=== PATIENT | female | born 1950 | race Caucasian/White ===

== ENCOUNTER 2018-01-26 21:58 | Outpatient (REF) | payer MEDICARE, SELFPAY ==
[2018-01-28 19:11] LABS: Oxalate Conc (mmol/L) 0.16 mmol/L; Oxalate Concentration 14.1 mg/L; Oxalate, U 0.13 mmol/24 h; Oxalate, U 11.4 mg/24 h (9.7 - 40.5); Urine Volume 800 mL
== END 2018-01-26 22:18 ==
LOC: NCHCN 21:58
PROVIDERS: PCP Internal Medicine; Visit Provider Internal Medicine
DX: N20.0 Calculus of kidney (principal)
CPT/HCPCS: 81050; 82340; 82570; 83945; 84560

== ENCOUNTER 2018-09-21 15:49 | Outpatient (REF) | payer MEDICARE, SELFPAY ==
[2018-09-21 19:04] LABS: ALT 34 U/L (12-78); Anion Gap 9.4 mmol/L (3-11); BUN 17 mg/dL (7-18); CO2 28.6 mmol/L (21.0-32.0); CREATININE 0.83 mg/dL (0.55-1.02); Calcium 8.9 mg/dL (8.5-10.1); Chloride 104 mmol/L (98-107); Glucose 138 mg/dL (70-100); LDL CHOLESTEROL 156 mg/dL (<100); Potassium 3.9 mmol/L (3.5-5.1); Sodium 142 mmol/L (136-145)
== END 2018-09-21 16:09 ==
LOC: NCHCN 15:49
PROVIDERS: PCP Internal Medicine; Visit Provider Internal Medicine
DX: I10 Essential (primary) hypertension (principal)
CPT/HCPCS: 80048; 83721; 84460

== ENCOUNTER 2018-10-28 08:38 | Outpatient (REF) | payer MEDICARE, SELFPAY ==
[2018-10-28 20:43] LABS: Calculated LDL 119 mg/dL; Cholesterol 208 mg/dL (50-200); HDL Cholesterol 43 mg/dL (40-60); Triglyceride 230 mg/dL (30-150)
[2018-10-28 20:51] LABS: Hemoglobin A1C 7.8 % (4.5-6.2)
== END 2018-10-28 08:58 ==
LOC: NCHCN 08:38
PROVIDERS: PCP Internal Medicine; Visit Provider Nurse Practitioner Family
DX: E78.5 Hyperlipidemia, unspecified (principal); R73.9 Hyperglycemia, unspecified; R55 Syncope and collapse
CPT/HCPCS: 80061; 83721; 83036; 84443

== ENCOUNTER 2020-03-14 03:43 | Outpatient (CLI) | payer MEDICARE, SELFPAY ==
--- NOTE | 2020-03-28 15:28 | ZIOP_ITS ---
Date of service: 03/28/20 Time of Service: 15:28 14 Day Java Core Developer Referring Provider:: Harvey Indications:: Paroxysmal atrial fibrillation Note: This was a 14-day Holter monitor. Predominant rhythm was sinus with an average heart rate of 64. Minimum was 46, maximum 105 There were rare ventricular ectopic beats There were occasional atrial premature beats. There were a total of 9 atrial runs, the longest of which was 9 beats in length. These were not symptomatic., There was no atrial fibrillation. There was no high-grade AV block. There were no pauses greater than 3 seconds Multiple patient symptoms were reported, generally flutter or skipped beats. No dysrhythmias were recorded during the patient events. They corresponded to sinus rhythm rate generally 65-70
== END 2020-03-14 04:03 ==
PROVIDERS: PCP Internal Medicine; Visit Provider Internal Medicine
DX: I48.0 Paroxysmal atrial fibrillation (principal)
CPT/HCPCS: 0296T

== ENCOUNTER 2020-03-28 15:28 | Outpatient (CLI) | payer MEDICARE, SELFPAY | END 2020-03-28 15:48 | PROVIDERS: PCP Internal Medicine; Referring Provider Internal Medicine; Visit Provider Internal Medicine Cardiovascular Disease | DX: I48.0 Paroxysmal atrial fibrillation (principal); I49.1 Atrial premature depolarization | CPT/HCPCS: 0298T ==

== ENCOUNTER 2020-09-27 19:20 | Outpatient (REF) | payer MEDICARE, SELFPAY ==
[2020-09-27 21:11] LABS: ALT 53 U/L (14-59); Anion Gap 7.1 mmol/L (3-11); BUN 17 mg/dL (7-18); CO2 31.9 mmol/L (21.0-32.0); CREATININE 1.2 mg/dL (0.55-1.02); Calcium 9.2 mg/dL (8.5-10.1); Chloride 103 mmol/L (98-107); Estimated GFR 44.41 (mL/min/1.73m2); Glucose 196 mg/dL (74-106); LDL CHOLESTEROL 66 mg/dL (<100); Potassium 3.7 mmol/L (3.5-5.1); Sodium 142 mmol/L (136-145)
== END 2020-09-27 19:21 | disposition home or self-care (01) ==
LOC: NCHCN 19:20
PROVIDERS: PCP Internal Medicine; Visit Provider Internal Medicine
DX: E11.9 Type 2 diabetes mellitus without complications (principal); M70.41 Prepatellar bursitis, right knee; K21.9 Gastro-esophageal reflux disease without esophagitis; G20 Parkinson's disease
CPT/HCPCS: 80048; 83721; 84460

== ENCOUNTER 2021-10-15 18:37 | Outpatient (REF) | payer MEDICARE, SELFPAY ==
--- OUTSIDE RECORDS SUMMARY | 2021-10-15 18:56 | XMS_ITS | Encounter Summary ---
:[address] [facility] Address [address] [place] [address] Care Team Providers Name Role Phone Patricio Gabriel MD Primary Care Provider Encounter Details Date Type Department Care Team Description 09/04/2020 Lab Requisition [facility] Dwayne Acosta MD Encounter for other Pathology & 81 MEDICAL general examina tion Laboratory Medicine [facility] [address] Blevins [address] [address] 111 [facility] [phone] [place] [address] (Work) [phone] Social History Tobacco Use Types Packs/Day Years Used Date Never Assessed Sex Assigned at Date Recorded Not on file documented as of this encounter Plan of Treatment Not on filedocumented as of this encounter Procedures Procedure Name Priority Date/Time Associated Diagnosis Comme nts SURGICAL PATHOLOGY Today 08/31/2020 16:00 Resul ts for this EDT procedure are i n the results section. documented in this encounter Results SURGICAL PATHOLOGY (08/31/2020 16:00 EDT) Final Diagnosis A. SKIN OF BREAST, LEFT, EXCISION: [facility] - Seborrheic keratosis. CENTER - Seborrheic keratosis present at peripheral margin. LABORATORY SERVICES Attestation By the signature [facility] Electronica lly below, the attending CENTER signed by [place] physician certifies LABORATORY Samantha Spencer MD on that they have 1) SERVICES 09/06/2020 a t 1044 personally conducted a gross and/or microscopic examination of the described specimen(s), and/or personally interpreted the results of laboratory testing of the described specimen(s), and 2) personally rendered or confirmed the above diagnosis. Microscopic The stratum corneum [facility] Description is thickened by CENTER compact and LABORATORY basketweave SERVICES orthokeratosis with formation of horn pseudocysts. The epidermis is acanthotic with formation of broad and anastomosing trabeculae. The trabeculae are composed of basaloid keratinocytes with round uniform nuclei. The keratinocytes have a variable amount of melanin pigment. Clinical History Nevus of L breast [facility] LABORATORY SERVICES Gross Description A. [facility] Received in formalin ethel d with proper patient identification (initials V, H) and L breast skin is an unoriented ellipse excision of pale dial wrinkled skin (2.0 x 0.9 cm and is excised to a depth o CENTER f 0.1 cm). There is an off c enter dial-north to brown finely papillomatous papule (1.3 x 0.8 x 0.3 cm). The margins are inked blue. The specimen is serially sectioned and entirely submitted as two tips, r LABORATORY everse en face A1, and central sections in A2-A3. SERVICES Zack Curry 09/05/2020 10:17 Performing Lab [facility] LAB [facility] LABORATORY SERVICES Scanned Images [facility] LABORATORY SERVICES Specimen Tissue - Skin (tissue) specimen (specime n) Performing Organization Address City/State/ZIP Code Phon e Number [facility] [address] [place] [address] SERVICES documented in this encounter Visit Diagnoses Diagnosis Encounter for other general examination documented in this encounter Care Teams Special Warfare Boat Operator Relationship Specialty Start Date End Date Patricio Gabriel MD PCP - General 02/01/09 [address] [place] [address] documented as of this encounter
--- OUTSIDE RECORDS SUMMARY | 2021-10-15 18:56 | XMS_ITS | Encounter Summary ---
:1950 Author Organization [facility] Address [address] [place] [address] Care Team Providers Name Role Phone Patricio Gabriel MD Primary Care Provider Encounter Details Date Type Department Care Team Description 06/03/2002 Results Only [facility] - John Barksdale MD conversion [address] [place] [address] Social History Tobacco Use Types Packs/Day Years Used Date Never Assessed Sex Assigned at Date Recorded Not on file documented as of this encounter Plan of Treatment Not on filedocumented as of this encounter Procedures Procedure Name Priority Date/Time Associated Diagnosis Comme nts CYTOPATHOLOGY Routine 06/03/2002 0:00 EST Results for this procedure are i n the results section . documented in this encounter Results CYTOPATHOLOGY (06/03/2002 0:00 EST) Pathology Report: CYTOPATHOLOGY REPORT [facility] Reports generated via electronic interface contain soraya ginal data; however they are lacking the format of the original re port. Caution should be taken when reading/interpreting unfo rmatted reports. Name: ? ERICK STOKES ? Accession #: ? [id number] : ? 1950 (Age: 52) ??F ?Collect Date: ? 03/0 08/2002 Location: ? [facility] ? Receive Date : ? 06/07/2002 Provider: ?JOHN BIRD MD Copy to: ? Specimen/Source: ?ThinPrep Pap Test, Cervix/ Endocervix Last Menstrual Period: ? Hormonal/Contraceptive Status: ? Premarin ? SPECIMEN ADEQUACY ? Satisfactory for Evaluation - transformation zone component present GENERAL CATEGORIZATION ? Negative for Intraepithelial Lesion or Malignan cy ? Document reviewed and electronically signed by: ? GENESIS Gann(ASCP) ? Report Date: ??06/08/2002 10:36 End of Report Specimen Performing Organization Address City/State/ZIP Code Phon e Number [facility] [address] [place] [address] SERVICES [facility] [address] [place] [address] documented in this encounter Visit Diagnoses Not on filedocumented in this encounter Care Teams Animal Control Specialist Relationship Specialty Start Date End Date Patricio Gabriel MD PCP - General 02/01/09 [address] [place] [address] documented as of this encounter
--- OUTSIDE RECORDS SUMMARY | 2021-10-15 18:56 | XMS_ITS | Encounter Summary ---
:1950 Author Organization [facility] Address [address] [place] [address] Care Team Providers Name Role Phone Unavailable Primary Care Provider Unavailable Encounter Details Date Type Department Care Team Description 04/26/[address] [facility] - Brianna [address], [facility] 111 [facility] [address] [place], [place] [address] [place] [address] [place], [address] [place] [address] (Wo rk) Social History Tobacco Use Types Packs/Day Years Used Date Never Assessed Sex Assigned at Date Recorded Not on file documented as of this encounter Discharge Disposition Disposition Code Departure Means Destination Auto Discharge documented in this encounter Plan of Treatment Not on filedocumented as of this encounter Procedures Procedure Name Priority Date/Time Associated Diagnosis Comme nts CYTOPATHOLOGY Routine 02/10/2009 0:00 EST Results for this procedure are i n the results section . documented in this encounter Results CYTOPATHOLOGY (02/10/2009 0:00 EST) Pathology Report: CYTOPATHOLOGY REPORT ? [facility] ? [facility] Reports generated via electr onic interface contain original data; ? however they are lacking the format of the original report. ? Caution should be taken when reading/interpreting unformatted reports. ? Name: ? KIKE, ERICK D ? Accession #: ? [id number] ? : ? 1950 (Age: 58) ??F ?Collect Date: ? 02/10/2009 ? Location: ? [facility] ? Receive Date: ? 02/14/2009 ? Provider: ? MALINDA E GABRIELA MEAU MD ? Copy to: ? CYTOLOGIC DIAGNOSIS: ? Urine, voided, cytolo gic evaluation: ? - No malignant cells identif ied. ? Document reviewed and electr onically signed by: ? Leda Ferris MD ? Report Date: ??02/14/2009 16 :01 ? By the signature above, the attending physician certifies that he/she has ? personally conducted a gross and/or microscopic examination of the described ? specimens and rendered or co nfirmed the above diagnosis. ? Specimen Type: ? Urine, Voided ? Clinical History: ? Clinical diagnosis co de: 599.72. ? Gross Description: ? One vial of Cytolyt w as received and processed by selective cellular ? enhancement technique. ? End of Report ? Specimen Performing Organization Address City/State/ZIP Code Phon e Number [facility] [address] [place] [address] SERVICES [facility] [address] [place] [address] documented in this encounter Visit Diagnoses Not on filedocumented in this encounter
--- OUTSIDE RECORDS SUMMARY | 2021-10-15 18:56 | XMS_ITS | Encounter Summary ---
:1950 Author Organization [facility] Address [address] [place] [address] Care Team Providers Name Role Phone Patricio Gabriel MD Primary Care Provider Encounter Details Date Type Department Care Team Description 07/31/2006 Results Only [facility] - Elyssa Villasenor MD conversion [facility] [address] 111 [facility] [address] [place], [place] [id number] [place] [address] (Wo rk) Social History Tobacco Use Types Packs/Day Years Used Date Never Assessed Sex Assigned at Date Recorded Not on file documented as of this encounter Plan of Treatment Not on filedocumented as of this encounter Procedures Procedure Name Priority Date/Time Associated Comments Diagnosis HPV DETECTION, HIGH Routine 07/31/2006 22:51 Resu lts for this RISK TYPES EDT procedure are i n the results section. CYTOPATHOLOGY Routine 07/31/2006 0:00 Results for this EDT procedure are i n the results section. documented in this encounter Results HUMAN PAPILLOMA VIRUS DNA TEST (07/31/2006 22:51 EDT) Specimen Description Cervix, ThinPrep [facility] vial Result Negative for HPV [facility] types 16, 18, 31, 33, 35, 39, 45, 51, 52, 56, 58, 59, and 68. Report Status Final [facility] [id number] Specimen Performing Organization Address City/State/ZIP Code Phon e Number [facility] [address] [place] [address] SERVICES [facility] [address] [place] [address] CYTOPATHOLOGY (07/31/2006 0:00 EDT) Pathology Report: CYTOPATHOLOGY REPORT [facility] Reports generated via electronic interface contain soraya ginal data; however they are lacking the format of the original re port. Caution should be taken when reading/interpreting unfo rmatted reports. Name: ? ERICK STOKES ? Accession #: ? [id number] : ? 1950 (Age: 56) ??F ?Collect Date: ? 05/2006 Location: ? [facility] ? Receive Date : ? 08/01/2006 Provider: ?ELYSSA RAIN MD Copy to: ? Specimen/Source: ? ThinPrep Pap Test, Vagina, processed on [employer] ThinPrep Imaging System, with manual evaluation Last Menstrual Period: ? Age 45 Treatment History: ? Hysterectomy: Vag 11/03 Other: ? Additional clinical information: Previous paps WNL HPVDX - HPV testing requested regardless of diag nosis on current ThinPrep Pap test. ? SPECIMEN ADEQUACY ? Satisfactory for Evaluation - assessment of transformation zone component not appl icable ( e.g. atrophy, vaginal sample, hysterectomy) GENERAL CATEGORIZATION ? Negative for Intraepithelial Lesion or Malignan cy ? Document reviewed and electronically signed by: ? GENESIS Steen(ASCP) ? Report Date: ??08/05/2006 10:18 End of Report Specimen Performing Organization Address City/State/ZIP Code Phon e Number [facility] [address] [place] [address] SERVICES [facility] [address] [place] [address] documented in this encounter Visit Diagnoses Not on filedocumented in this encounter Care Teams Manufacturing Operator Relationship Specialty Start Date End Date Patricio Gabriel MD PCP - General 02/01/09 [address] [place] [address] documented as of this encounter
--- OUTSIDE RECORDS SUMMARY | 2021-10-15 18:56 | XMS_ITS | Encounter Summary ---
:1950 Author Organization [facility] Address [address] [place] [address] Care Team Providers Name Role Phone Patricio Gabriel MD Primary Care Provider Encounter Details Date Type Department Care Team Description 01/07/2018 Results Only [facility]- PRISM Lizz Puri MD [phone] [place], [place] [address] (Wo rk) Social History Tobacco Use Types Packs/Day Years Used Date Never Assessed Sex Assigned at Date Recorded Not on file documented as of this encounter Plan of Treatment Not on filedocumented as of this encounter Procedures Procedure Name Priority Date/Time Associated Diagnosis Comme [facility] SURGICAL PATHOLOGY Routine 01/07/2018 9:03 EDT Re sults for this procedure are i n the results section. documented in this encounter Results SURGICAL PATHOLOGY (01/07/2018 9:03 EDT) Pathology SURGICAL PATHOLOGY REPORT [facility] Report: Reports generated via electronic interface conta in original data; CENTER LABORATORY however they are lacking the format of the original re port. SERVICES Caution should be taken when reading/interpreting unfo rmatted reports. Name: ? ERICK STOKES ? Accession #: ? [id number] ? : ? 1950 (Age: 67) ??F ? Collect Date: ? 01/07/2018 ? Location: ? [facility] ? Receive Date: ? 01/08/20 18 ? Provider: LIZZ PURI MD Copy to: ? 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 Comment: Sections show mature adipose tissue with bands of ropey collagen and scattered mast cells. Scattered edema/ myxomatous stroma are present. ??Rare enlarged cells are noted, but significant cytologic atypia is a bsent. Per report from an MRI study, the patient is noted to have a prepatella r soft tissue mass having the appearance of fat with some edema. 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 Screen Printing Stencil Preparer slides of this case were reviewed at the intradepartmental consultati on conference. Immunoperoxidase stains were performed on this case to further characterize the lesion. ANTIBODY(CLONE)(BLOCK):RESULT CD34 (QBEnd/10, [employer]ica) (2): Positive MDM2 (IF2, Calbiochem) (2): Negative CDK4 (DCS-31, Invitrogen) (2): Negative NOTE: ??One or more of the reagents used in imm unoperoxidase testing in this case may not have been cleared or approved by the U.S. Food and Drug Administration (FDA). ??The FDA has determined that such clearance or approval is not necessary. ??These tests are used for clinical purposes. ??They should not be regarded as investigational or for research. ??These r eagents' performance characteristics have been de termined by [facility] and/or by the referring andreia ramos. ??The positive and negative controls worked appropriately. If immunopero xidase staining has been performed on alcohol fixed cytology specimens, which has not been fully validated , the assays should be interpreted with caution and correlated with clinical data. ??This laboratory is certified under the Clinical Laboratory Improvement Amendments of 1988 (CLIA-88) as qualified to perform high complexity clinical labor atory testing. Dr. Frederick Vargas 01/12/2018 1:00 PM Document reviewed and electronically signed by: FREDERICK VARGAS MD Report ??Date: 01/12/2018 13:02 By the signature above, the attending physician certif ies that he/she has personally conducted a gross and/or microscopic examin ation of the described specimens and rendered or confirmed the above diagnosi s. Specimen(s) Received: Anterior right knee specimen Clinical History: Mass right anterior knee, rapid growth over last month Gross Description: ? Received in formalin labelled with proper patient identification (initials V, H) and anterior right kn ee specimen is an ovoid portion of yellow lobulated adipose tissue (3.6 x 2.8 x 1.3 cm) with an overlying membranous layer of tissue at one aspect. The cut surfaces are pale yellow and homogenous. Screen Printing Stencil Preparer sections are submitted in 1 and 2. RENAE Cline (ASCP) 01/08/2018 9:52 AM End of Report Specimen Performing Organization Address City/State/ZIP Code Phon e Number [facility] [address] [place] [address] SERVICES documented in this encounter Visit Diagnoses Not on filedocumented in this encounter Care Teams Fast Food Shift Supervisor Relationship Specialty Start Date End Date Patricio Gabriel MD PCP - General 02/01/09 [address] [place] [address] documented as of this encounter
--- OUTSIDE RECORDS SUMMARY | 2021-10-15 18:56 | XMS_ITS | Clinical Summary ---
:1950 Author Organization [facility] Address [address] [place] [address] Care Team Providers Name Role Phone Patricio Gabriel MD Primary Care Provider Social History Tobacco Use Types Packs/Day Years Used Date Never Assessed Sex Assigned at Date Recorded Not on file Plan of Treatment Health Maintenance Due Date Last Done Comments Fall Risk Screening 2015 Insurance Payer Benefit Plan Subscriber ID Effective Phone Address Typ e / Group Dates RAILROAD MEDICARE [id number] 2006-Pres [phone] Medi care MEDICARE RAILROAD A/B ent [id number] [place] [address] [facility] [id number] 2020-Pres [phone] [address] Comm ercial HEALTHCARE ent [phone] [place] [address] (Work) [phone] Yesi Estrella Personal/Famil Self 1950 [address] [phone] [place], [place] (Work) [phone] Yesi Estrella Personal/Famil Self 1950 [address] [phone] [place] (Work) [phone] Yesi Estrella Personal/Famil Self 1950 [address]) [facility] [phone] [place] (Work) [phone] Yesi Estrella Personal/Famil Self 1950 [address] (Home) [phone] [place] (Work) [phone] Care Teams Timber Inspector Relationship Specialty Start Date End Date Patricio Gabriel MD PCP - General 02/01/09 [address] [place], [place] [address]
--- OUTSIDE RECORDS SUMMARY | 2021-10-15 18:56 | XMS_ITS | Encounter Summary ---
:[address] [facility] Address [address] [place] [address] Care Team Providers Name Role Phone Patricio Gabriel MD Primary Care Provider Encounter Details Date Type Department Care Team Description 06/06/2005 Results Only [facility] - Elyssa Villasenor MD conversion [address] [place] [address] [address] [facility] [address] [place], [place] [address] [place] [address] (Wo rk) Social History Tobacco Use Types Packs/Day Years Used Date Never Assessed Sex Assigned at Date Recorded Not on file documented as of this encounter Plan of Treatment Not on filedocumented as of this encounter Procedures Procedure Name Priority Date/Time Associated Diagnosis Comme nts CYTOPATHOLOGY Routine 06/06/2005 0:00 EST Results for this procedure are i n the results section . documented in this encounter Results CYTOPATHOLOGY (06/06/2005 0:00 EST) Pathology Report: CYTOPATHOLOGY REPORT [facility] Reports generated via electronic interface contain soraya ginal data; however they are lacking the format of the original re port. Caution should be taken when reading/interpreting unfo rmatted reports. Name: ? ERICK STOKES ? Accession #: ? [id number] : ? 1950 (Age: 55) ??F ?Collect Date: ? 03/11/2005 Location: ? [facility] ? Receive Date : ? 06/10/2005 Provider: ?ELYSSA RAIN MD Copy to: ? Specimen/Source: ? ThinPrep Pap Test, Cervix/Endocervix, processed on [employer] ThinPrep Imaging System, with manual evaluation Last Menstrual Period: ? Age 45 Hormonal/Contraceptive Status: ? Yes Other: ? HPVA - HPV testing requested if ASC-US on the current ThinPrep Pap test. ? SPECIMEN ADEQUACY ? Satisfactory for Evaluation - transformation zone component present GENERAL CATEGORIZATION ? Negative for Intraepithelial Lesion or Malignan cy INTERPRETATION ? Fungal organisms pres ent morphologically consistent with Christi species. ? Document reviewed and electronically signed by: ? GENESIS Davis(ASCP) ? Report Date: ??06/12/2005 10:22 End of Report Specimen Performing Organization Address City/State/ZIP Code Phon e Number [facility] [address] [place] [address] SERVICES [facility] [address] [place] [address] documented in this encounter Visit Diagnoses Not on filedocumented in this encounter Care Teams Media Librarian Relationship Specialty Start Date End Date Patricio Gabriel MD PCP - General 02/01/09 [address] [place] [address] documented as of this encounter
--- OUTSIDE RECORDS SUMMARY | 2021-10-15 18:56 | XMS_ITS | Encounter Summary ---
:1950 Author Organization [facility] Address [address] [place] [address] Care Team Providers Name Role Phone Patricio Gabriel MD Primary Care Provider Encounter Details Date Type Department Care Team Description 05/15/2001 Results Only [facility] - Fausto Seth, conversion DDS [address] [place], [place] [address] [place] [address] (Wo rk) Social History Tobacco Use Types Packs/Day Years Used Date Never Assessed Sex Assigned at Date Recorded Not on file documented as of this encounter Plan of Treatment Not on filedocumented as of this encounter Procedures Procedure Name Priority Date/Time Associated Diagnosis Comme [facility] SURGICAL PATHOLOGY Routine 05/15/2001 0:00 EST Re sults for this procedure are i n the results section. documented in this encounter Results SURGICAL PATHOLOGY (05/15/2001 0:00 EST) Pathology Report: SURGICAL PATHOLOGY REPORT [facility] Reports generated via electronic interface contain soraya ginal data; LAB however they are lacking the format of the original re port. Caution should be taken when reading/interpreting unfo rmatted reports. Name: ? ERICK STOKES ? Accession #: ? [id number] ? : ? 1950 (Age: 51) ??F ? Collect Date: ? 05/15/2001 ? Location: ? [facility] ? Receive Date: ? 002 ? Provider: Fausto MCALLISTER DDS Copy to: MALLORIE GOETZ MD ? Final Pathologic Diagnosis: ? Buccal mucosa, left, lesion, excisional biopsy: - Submucosal fibrosis (irritation fibroma). Document reviewed and electronically signed by: Kandace Arriola MD Report ??Date: 05/18/2001 14:25 By the signature above, the attending physician certif ies that he/she has personally conducted a gross and/or microscopic examin ation of the described specimens and rendered or confirmed the above diagnosi s. Specimen(s) Received: ? 7 mm pedunculated pink non-indurated, soft tiss ue lesion Clinical History: ? L buccal mucosal lesion x 1-several yrs, bites easily, clinical dx irritation fibroma Gross Description: ? Received in formalin labelled [place] is an ovoid excision of mucosal tissue that measures 1.1 x 0.6 cm and is excised to a depth of 0.5 cm. ??The mucosal surface is smooth, p ink-dial, and consists of a nodule that is raised 0.6 cm above the mucosal resecti on margin. ??The specimen is longitudinally trisected and is entirely submitted in one cassette. ??(Viridiana Black) /[facility] End of Report Specimen Performing Organization Address City/State/ZIP Code Phon e Number [facility] [address] [place] [address] SERVICES [facility] [address] [place] [address] documented in this encounter Visit Diagnoses Not on filedocumented in this encounter Care Teams Lan Engineer Relationship Specialty Start Date End Date Patricio Gabriel MD PCP - General 02/01/09 [address] [place] [id number] documented as of this encounter
--- OUTSIDE RECORDS SUMMARY | 2021-10-15 18:56 | XMS_ITS | Encounter Summary ---
:1950 Author Organization [facility] Address [address] [place] [address] Care Team Providers Name Role Phone Patricio Gabriel MD Primary Care Provider Encounter Details Date Type Department Care Team Description 01/19/2001 Results Only [facility] - Comfort Lozano ARCHITECTURE PROFESSOR conversion [address] [place] [address] Social History Tobacco Use Types Packs/Day Years Used Date Never Assessed Sex Assigned at Date Recorded Not on file documented as of this encounter Plan of Treatment Not on filedocumented as of this encounter Procedures Procedure Name Priority Date/Time Associated Diagnosis Comme nts CYTOPATHOLOGY Routine 01/19/2001 0:00 EDT Results for this procedure are i n the results section . documented in this encounter Results CYTOPATHOLOGY (01/19/2001 0:00 EDT) Pathology Report: CYTOPATHOLOGY REPORT [facility] Reports generated via electronic interface contain soraya ginal data; however they are lacking the format of the original re port. Caution should be taken when reading/interpreting unfo rmatted reports. Name: ? ERICK STOKES ? Accession #: ? [id number] : ? 1950 (Age: 50) ??F ?Collect Date: ? 12/30 Location: ? [facility] ? Receive Date : ? 01/21/2001 Provider: ?COMFORT NDIAYE ARCHITECTURE PROFESSOR Copy to: ? Specimen/Source: ?ThinPrep Pap Test, Cervix/ Endocervix Last Menstrual Period: ? 10/29 Hormonal/Contraceptive Status: ? Hormone Replacement Therapy ? SPECIMEN ADEQUACY ? Satisfactory for evaluation. GENERAL CATEGORIZATION ? Within Normal Limits ? Document reviewed and electronically signed by: ? Alisha Ladd, SCT(ASCP) ? Report Date: ??01/23/2001 10:31 End of Report Specimen Performing Organization Address City/State/ZIP Code Phon e Number [facility] [address] [place] [address] SERVICES [facility] [address] [place] [address] documented in this encounter Visit Diagnoses Not on filedocumented in this encounter Care Teams Box Blank Machine Operator Relationship Specialty Start Date End Date Patricio Gabriel MD PCP - General 02/01/09 [address] [place] [address] documented as of this encounter
--- OUTSIDE RECORDS SUMMARY | 2021-10-15 18:56 | XMS_ITS | Encounter Summary ---
:1950 Author Organization [facility] Address [address] [place] [address] Care Team Providers Name Role Phone Unavailable Primary Care Provider Unavailable Encounter Details Date Type Department Care Team Description 12/01/2007 Before [facility] Leanne Acosta MD Converted Visit Maple conversion 81 [facility] [address] [facility] [address] [place], [place] [id number] [place] [phone] (Wo rk) Social History Tobacco Use Types Packs/Day Years Used Date Never Assessed Sex Assigned at Date Recorded Not on file documented as of this encounter Plan of Treatment Not on filedocumented as of this encounter Procedures Procedure Name Priority Date/Time Associated Diagnosis Comme [facility] CYTOPATHOLOGY Routine 12/01/2007 0:00 EDT Results for this procedure are i n the results section . documented in this encounter Results CYTOPATHOLOGY (12/01/2007 0:00 EDT) Pathology Report: CYTOPATHOLOGY REPORT ? [facility] Reports generated via electr onic interface contain original data; ? however they are lacking the format of the original report. ? Caution should be taken when reading/interpreting unformatted reports. ? Name: ? ERICK STOKES ? Accession #: ? [id number] ? : ? 1950 (Age: 57) ??F ?Collect Date: ? 12/01/2007 ? Location: ? [facility] ? Receive Date: ? 12/02/2007 ? Provider: ? ELYSSA ACOSTA MD ? Copy to: ? Specimen Type: ? Urine, Voided ? Clinical History: ? Microscopic hematuria . ??Clinical diagnosis code: 599.7 ? Gross Description: ? 40cc' s of clear yell ow fluid were received and processed by selective ? cellular enhancement techniq ue. ? CYTOLOGIC DIAGNOSIS: ? Urine, voided, cytolo gic evaluation: ? 1. ?No malignan t cells identified. ? 2. ? Numerous squamous c ells, rare urothelial cells present. ? 3. ? Few red blood cells noted. ? Document reviewed and electr onically signed by: ? Hugo Eastman, MBBCh ? Report Date: ??12/03/2007 13 :03 ? By the signature above, the attending physician certifies that he/she has ? personally conducted a gross and/or microscopic examination of the described ? specimens and rendered or co nfirmed the above diagnosis. ? End of Report ? Specimen Performing Organization Address City/State/ZIP Code Phon e Number [facility] [address] [place] [address] SERVICES [facility] [address] [place] [address] documented in this encounter Visit Diagnoses Not on filedocumented in this encounter
--- OUTSIDE RECORDS SUMMARY | 2021-10-15 18:57 | XMS_ITS | Encounter Summary ---
:1950 [place] [address] Care Team Providers Name Role Phone Patricio Gabriel MD Primary Care Provider Encounter Details Date Type Department Care Team Description 01/20/2018 Hospital Encounter Radiology Library at Patience Vazquez, [facility] [place] [address] GASTROENTEROLOGY [phone] [place] [address] (Wo rk) Social History Tobacco Use Types Packs/Day Years Used Date Former Smoker 0.25 Quit: 05/30/19 14 Smokeless Tobacco: Never Used Sex Assigned at Date Recorded Not on file documented as of this encounter Medications at Time of Discharge Medication Sig Dispensed Refills Start Date End Date pantoprazole (PROTONIX) 0 10/31/2015 40 mg Tablet, Delayed Release (E.C.) atenolol (TENORMIN) 50 mg 0 10/31/2015 Tablet lisinopril TAKE ONE TABLET BY 4 12/01/2015 (PRINIVIL;ZESTRIL) 20 mg MOUTH EVERY DAY Tablet NEEDS ANNUAL EXAM gabapentin (NEURONTIN) Take 1 capsule by 90 capsule 1 2013 300 mg capsule mouth 3 times daily. Begin with 1 cap at HS X 3 days, then 1 cap Q AM and HS X 3 day, then 1 cap TID. acetaminophen (TYLENOL) Take 2 tablets by 30 tablet 1 09/17 500 mg tablet mouth every 8 hours. traMADol (ULTRAM) 50 mg TAKE ONE TABLET BY 5 11/3005/10/2021 Tablet MOUTH THREE TIMES A DAY NEEDED documented as of this encounter Plan of Treatment Upcoming Encounters Date Type Specialty Care Team Description 12/28/2021 Office Visit Neurosurgery Nancy Fountain MD [facility] [address] [place], [place] [address] (Wo rk) documented as of this encounter Procedures Procedure Name Priority Date/Time Associated Diagnosis Comme nts FILM LIBRARY Routine 01/20/2018 12:00 AM Results for this STORAGE ONLY DX EDT procedure ar e in CHEST the results section. documented in this encounter Results Film Library- Storage Only DX Chest (01/20/2018 12:00 AM EDT) Specimen (Source) Anatomical Location Collection Method / Collectio n Time Received Time / Laterality Volume Narrative [facility] - 01/21/2018 1:08 AM EDT This exam is for storage only and is aut o-finalizing. Adrian Vazquez MD IMG FILM LIBRARY ORDERABLES Performing Organization Address City/State/ZIP Code Phon e Number [place], [place] documented in this encounter Visit Diagnoses Not on filedocumented in this encounter Care Teams Global Engineering Manager Relationship Specialty Start Date End Date Patricio Gabriel MD PCP - General 02/20/10 [address] [place] [address] documented as of this encounter
--- OUTSIDE RECORDS SUMMARY | 2021-10-15 18:57 | XMS_ITS | Encounter Summary ---
:1950 [place] [address] Care Team Providers Name Role Phone Patricio Gabriel MD Primary Care Provider Reason for Visit Auth/Cert Specialty Diagnoses / Procedures Referred By Contact Refer red To Contact Diagnoses Back pain Procedures na Referral ID Status Reason Start Date Expiration Date Visits Requ ested Visits Authorized [id number] 1 1 Encounter Details Date Type Department Care Team Description 05/08/2021 Anesthesia Event Main Operating Room Adrian Ma DO [facility] [place] [address] [place] [address] [phone] Anesthesia Record Procedure Summary Procedure Name Responsible Anesthesia Start Anesthesia Stop Anesthesiologist Time Time LAMINECTOMY LUMBAR, Adrian Acosta DO 05/08/21 0915 1224 DECOMPRESSION, 1 OR 2 SEGMENTS (WRVU 16.43) (Midline Spine Lumbar) Events Date Time Event Comment 05/08/2021 0835 0915 AN Verify 0915 Start 0917 An Start Data 0927 An Induction 0929 An Intubation 0931 Anesthesia Ready 0941 Quick Note Patient placed i n prone position. Head and neck maintained in neutral midline position with Prone View. Lines and tubes reassessed. ETT placement an d bilateral breath sounds reconfirmed. Fac e, eyes, nose and ears assessed and alysa e from pressure. 0957 Procedure Start 1107 Quick Note 1157 Break/Relief In I assumed care f or Break Relief before which we: 1. Identifie d the patient 2. Identified the responsible provider(s) 3. Reviewed the pertinent medica l history 4. Discussed the surgical plan an d course 5. Reviewed intra-op anesthesia manag ement and issues during anesthesia 6. Se t expectations for the relief (and/or post-pro cedure) period 7. Allowed opportunity for questions and acknowledgement of understanding Liss Rice GRADER MARKER 1216 Extubation/LMA Out 1219 an stop data 1221 Recovery or ICU Handoff Patient care was transferred to the destination unit staff after review of the patient's medica l history, current anesthetic/surgi cristian status and plan, according to the Provider Handoff Checklist. 1224 Stop Name Total IV Lidocaine 60 mg Propofol 190 mg PHENYLephrine 320 mcg ePHEDrine 10 mg Ondansetron 8 mg Dexamethasone 8 mg Succinylcholine 80 mg fentaNYL 200 mcg ceFAZolin 2 g PHENYLephrine INF 1,195 mcg Glycopyrrolate 0.2 mg Lactated Ringers 600 mL Lactated Ringers 800 mL Agents Name O2 Air N2O Sevoflurane (et) Blood No blood administrations on file. Lines, Drains, and Airways Type Details Placement Removal Incision 09/14/13; lumbar spine; 09/14/13 0000 by Yadira, kareen Orellana RN Incision 05/08/21; 1000; lumbar 05/08/21 1000 by spine; midline Aracelis Giang, RAFA PIV 05/08/21; 0433; cephalic 05/08/21 0433 by 1503 by vein (lateral side of Kristy Jim, Sarah London, arm), right (accessory HVAC SERVICE TECH cephalic); [id number] catheter system; Anatomical Landmarks; 22 gauge, 1 in length; gsr, rn vas; distraction, tolerated well; 0; removed per policy/procedure; 05/10/21; 1503 ETT Mask Ventilation: Easy 05/08/21 0929 by 05/08/21 1216 by (1); ETT Type: Cuffed, Steve Cota, Steve Vizcarra, Oral; ETT Size: 7.5 mm; GRADER MARKER TEMO Mac Blade: 3; Notes: Asleep, Pre-O2, Stylette; Attempts: 1; Laryngoscopy Grade: 1; ETT Placement Verified By: Capnometry, Auscultation, Visual; Secured at Teeth: 21 cm; Inserted by: Steve Cota CRNA Urethral Catheter 05/08/21; 0935; Surgery 05/08/21 0935 by 05/08 1212 by longer than 2 hours; Aracelis Giang, RN Aracelis Giang, RN indwelling double lumen catheter; hydrophilic coated, latex; 10; inserted at this facility (clear yellow urine return.); 1; 5; 10; none; drainage bag to dependent drainage; 05/08/21; 1212 PIV 05/08/21; 1000; cephalic 05/08/21 1000 by 2117 by vein (lateral side of Steve Cota, Nicci Manning RN arm), left; TEMO [id number]-[id number] catheter system; Anatomical Landmarks; US Not Used; 18 gauge; Steve Cota CRNA; 05/09/21; 2117 documented in this encounter Social History Tobacco Use Types Packs/Day Years Used Date Former Smoker 0.25 Quit: 05/30/19 14 Smokeless Tobacco: Never Used Alcohol Use Standard Drinks/Week Comments Yes 0 (1 standard drink = 0.6 oz pure alcoho l) Sex Assigned at Date Recorded Not on file documented as of this encounter OR Notes Anesthesia Postprocedure Evaluation - Adrian Acosta DO - 05/08/2021 3:24 PM EST Department of Anesthesiology Post-procedure Note Patient: Yesi Estrella Procedure Summary Date: 05/08/21 Room / Location: [facility] OR [address] [place] [address] MAIN OR Anesthesia Start: 914 Anesthesia Stop: 1223 Procedures: LAMINECTOMY LUMBAR, DECOMPRESSION, 1 OR 2 SEGMENTS (WRVU 16.43) (Midline Spine Lumbar) MICROSCOPE USE (WRVU 3.46) (N/A Spine Lumbar) Diagnosis: (R L5-S1 disc herniation) Surgeons: Nancy Fountain MD Responsible Provider: Adrian Acosta DO Anesthesia Type: general ASA Status: 2 All Anesthesia Providers: Anesthesiologist: Adrian Acosta DO GRADER MARKER: Steve Cota CRNA Vitals Value Taken Time BP 121/64 05/08/21 1445 Temp 36.6 ??C (97.9 ??F) 05/08/21 1430 Pulse 54 05/08/21 1445 Resp 11 05/08/21 1445 SpO2 96 % 05/08/21 1449 Pain Level 0 05/08/21 1430 Vitals shown include unvalidated device data. Patient Location: PACU/[facility] Level of Consciousness: Awake and Alert Pain Management: Satisfactory Analgesia PONV: None Cardiovascular Status: At Baseline and Hemodynamically Stable Respiratory Status: At Baseline and Room Air Postoperative Fluid Status: Intravascular EUvolemia Possible Anesthetic Complications: NONE apparent at time of evaluation Final Primary Anesthesia Type: General (The anesthetic type performed was the same as planned.) Comments: Adrian Acosta DO Anesthesia Preprocedure Evaluation - Adrian Acosta DO - 05/08/2021 8:15 AM EST Pre-Anesthesia Evaluation for: Yesi Estrella a 71 y.o. female. Procedure(s): LAMINECTOMY LUMBAR, DECOMPRESSION, 1 OR 2 SEGMENTS ([facility] 16.43) Patient Active Problem List Diagnosis Date Noted ??? Back pain 05/07/2021 ??? Radiculopathy of lumbar region 02/16/2016 ??? S/P Revision Right L4-S1 decompression, Right L4-5 diskectomy - 09/14/13 ([place]) 09/17/2013 ??? Atrial fibrillation with RVR 09/17/2013 ??? Thoracic or lumbosacral neuritis or radiculitis, unspecified 07/29/2013 ??? Chronic leg pain 07/20/2013 ??? Chronic low back pain 07/20/2013 ??? Right lumbar radiculopathy with L4-L5 HNP 07/20/2013 Past Medical History: Diagnosis Date ??? Angina pectoris ??? High blood pressure Past Surgical History: Procedure Laterality Date ??? CHOLECYSTECTOMY ??? HERNIA REPAIR ??? HYSTERECTOMY, TOTAL ABDOMINAL ??? LUMBAR LAMINECTOMY ? ? PRO DOMINIQUE FACETECTOMY&FORAMOT 1 VRT SGM EA ADDL SGM 09/14/2013 ADD'L INTERSPACES CX., THORACIC, LUMBAR performed by Tawanda Douglass MD at [facility] MAIN OR ??? PRO REDO EXCIS LUMBAR DISC 09/14/2013 LAMINOTOMY W\DECOMPRESSION, ONE LVL, LUMBAR ,RE-EXPL (INCLDNG PART. FACETECTOMY, FORAMINOTOMY &\OR DISCECTOMY) performed by Tawanda Douglass MD at [facility] MAIN OR Social History Tobacco Use ??? Smoking status: Former Smoker Packs/day: 0.25 Quit date: 05/29/2013 Years since quittin.9 ??? Smokeless tobacco: Never Used Substance Use Topics ??? Alcohol use: Not on file Social History Substance and Sexual Activity Drug Use Not on file Allergies Allergen Reactions ??? Meperidine Hcl Anaphylaxis ??? Prochlorperazine CIS - JITTERY Medications: MAR and/or home medications have been reviewed. Physical Exam: Preprocedure Vitals Current as of 05/08/21 0815 BP: 140/65 Pulse: Resp: 18 SpO2: 96 Temp: Height: 165.1 cm (5' 5) (05/07/21) Weight: 65.7 kg (144 lb 12.8 oz) (05/07/21) BMI: 24.10 IBW: 57 kg (125 lb 10.6 oz) Last edited 05/08/21 0754 by NATHALIE Airway Assessment: Mallampati: II Cardiovascular Assessment: system normal Pulmonary Assessment: pulmonary exam normal Dental Assessment: Misc Assessment: Last Filed Perioperative Cognitive Screening Value Time User 4AT TOTAL Score: 0 05/07/2021 8:00 PM Tanvi Edmond RN MiniCOG Total Score: 5 05/07/2021 11:39 AM Luigi Stovall RN Anesthesia Plan: ASA 2 general, 71 yo female w/ L5-S1 disc herniation s/f lami, decompression for worsening pain radiating into leg. Hx chronic pain (tramadol), HTN, GERD, periop afib 8 years ago with no recurrence No issues w/ prior anesthetics NPO appropriate Plan for GA w/ ETT Informed Consent: Anesthesia Screening documented in this encounter Plan of Treatment Upcoming Encounters Date Type Specialty Care Team Description 12/28/2021 Office Visit Neurosurgery Nancy Fountain MD [facility] [place], [place] [address] (Wo rk) documented as of this encounter Visit Diagnoses Not on filedocumented in this encounter Administered Medications Inactive Administered Medications - up to 3 most recent administrations Medication Order MAR Action Action Date Dose Rate Site ceFAZolin (Ancef) 1 g in dextrose 5% Given 05/08/2021 9:55 AM ES T 2 g 50 mL infusion Intravenous, PRN, Starting on Fri05/08/21 at 0955, Until Fri05/08/21 at 1226, Administer over 30 Minutes, Anesthesia Intra-op dexamethasone (Decadron) injection Given 05/08/2021 9:34 AM EST 8 mg Intravenous, PRN, Starting on Fri05/08/21 at 0934, Until Fri05/08/21 at 1226, Anesthesia Intra-op, Routine ePHEDrine sulfate (5 mg/mL) multi-dose Given 05/08/2021 10:11 AM EST 10 mg injection Intravenous, PRN, Starting on Fri05/08/21 at 1011, Until Fri05/08/21 at 1226, Anesthesia Intra-op, Routine fentaNYL (pf) (50 mcg/mL) multi-dose Given 05/08/2021 11:[address] 50 mcg injection Intravenous, PRN, Starting on Fri05/08/21 at 0921, Until Fri05/08/21 at 1226, Anesthesia Intra-op, Routine Given 05/08/2021 10:41 AM EST 50 mcg Given 05/08/2021 9:57 AM EST 50 mcg glycopyrrolate (Robinul) (0.2 mg/mL) Given 05/08/2021 10:[address] 0.2 mg multi-dose injection Intravenous, PRN, Starting on Fri05/08/21 at 1017, Until Fri05/08/21 at 1226, Anesthesia Intra-op, Routine lactated ringers infusion New Bag 05/08/2021 9:15 AM EST Intravenous, CONTINUOUS PRN, Starting on Fri05/08/21 at 0915, Until Fri05/08/21 at 1226, Anesthesia Intra-op lactated ringers infusion New Bag 05/08/2021 10:00 AM EST Intravenous, CONTINUOUS PRN, Starting on Fri05/08/21 at 1000, Until Fri05/08/21 at 1226, Anesthesia Intra-op lidocaine (pf) (Xylocaine) (20 mg/mL) 2% Given 05/08/2021 9:25 A M EST 60 mg injection syringe Intravenous, PRN, Starting on Fri05/08/21 at 0925, Until Fri05/08/21 at 1226, Anesthesia Intra-op, Routine ondansetron (pf) (Zofran) (2 mg/mL) inje ction Given 05/08/2021 11:56 AM EST 4 mg Intravenous, PRN, Starting on Fri05/08/21 at 0934, Until Fri05/08/21 at 1226, Anesthesia Intra-op, Routine Given 05/08/2021 9:34 AM EST 4 mg PHENYLephrine Rate/Dose Change 05/08/2021 11:39 10 mcg/min 7.5 mL/hr (Rj-Synephrine) (80 mcg/mL) AM EST in sodium chloride 0.9% 250 mL infusion Intravenous, CONTINUOUS PRN, Starting on Fri05/08/21 at 1013, Until Fri05/08/21 at 1226, Anesthesia Intra-op, Routine Rate/Dose Change 05/08/2021 11:06 AM EST 5 mcg/min 3.75 mL/hr Restarted 05/08/2021 10:55 AM EST 10 mcg/min 7.5 mL/hr PHENYLephrine in NS (PF) (RJ-SYNEPHRINE) Given 05/08/2021 10:01 AM EST 80 mcg 0.8 mg/10 mL (80 mcg/mL) multi-dose injection Syrg Intravenous, PRN, Starting on Fri05/08/21 at 0934, Until Fri05/08/21 at 1226, Anesthesia Intra-op, Routine Given 05/08/2021 9:50 AM EST 80 mcg Given 05/08/2021 9:41 AM EST 80 mcg propofoL (Diprivan) 10 mg/mL bolus injection Given 10/2021 10:23 AM EST 50 mg (Anesthesia) Intravenous, PRN, Starting on Fri05/08/21 at 0927, Until Fri05/08/21 at 1226, Anesthesia Intra-op Given 05/08/2021 9:29 AM EST 40 mg Given 05/08/2021 9:27 AM EST 100 mg succinylcholine (Anectine;Quelicin) (20 mg/mL) Given 0 05/08/2021 9:28 AM EST 80 mg injection Intravenous, PRN, Starting on Fri05/08/21 at 0928, Until Fri05/08/21 at 1226, Anesthesia Intra-op, Routine documented in this encounter Care Teams Film Washer Relationship Specialty Start Date End Date Patricio Gabriel MD PCP - General 02/20/[address] [place] [address] documented as of this encounter
--- OUTSIDE RECORDS SUMMARY | 2021-10-15 18:57 | XMS_ITS | Encounter Summary ---
:1950 Author Organization [facility] [place] [address] Care Team Providers Name Role Phone Patricio Gabriel MD Primary Care Provider Encounter Details Date Type Department Care Team Description 01/18/2016 Hospital Encounter XRay at [facility] [place] Taawnda Douglass, Lumbar stenosis [address] [facility] [address] JORDAN [facility] [id number] [facility] [place], [place] [address] Social History Tobacco Use Types Packs/Day Years [...] 50 mg TAKE ONE TABLET BY 5 09/2 03/2015 05/10/2021 Tablet MOUTH THREE TIMES A DAY NEEDED documented as of this encounter Plan of Treatment Upcoming Encounters Date Type Specialty Care Team Description 12/28/2021 Office Visit Neurosurgery Nancy Fountain MD [facility] [place], [place] [address] (Wo rk) documented as of this encounter Procedures Procedure Name Priority Date/Time Associated Diagnosis Comme nts XR LUMBAR SPINE 2 Routine 01/18/2016 2:14 PM Lumbar stenosis R esults for this OR 3 VIEWS EDT procedure are i n the results section. documented in this encounter Results XR Lumbar Spine 2 Or 3 Views (Generic) (01/18/2016 2:14 PM EDT) Anatomical Region Laterality Modality L-spine N/A Digital Radiography Specimen (Source) Anatomical Location Collection Method / Collectio n Time Received Time / Laterality Volume Impressions 01/18/2016 3:34 PM EDT 1. ??Postsurgical changes consistent with prior L4-5 laminectomies. 2. ??No dynamic instability. I have personally reviewed the image(s) and the residents interpretation and agree with the findings, Lucille young 01/18/2016 3:34 PM Narrative 01/18/2016 3:34 PM EDT EXAMINATION: XR LUMBAR SPINE 2 OR 3 VIEWS (GENERIC) CLINICAL HISTORY: AP lat flex/ext 3 view s to eval lumbar spinal stenosis TECHNIQUE: AP and lateral flexion-extens ion views of the lumbar spine. COMPARISON: Lumbar spine radiographs latosha ed 10/21/2013, and 05/16/2013. Lumbar spine MRI dated 01/02/2016. FINDINGS: Postsurgical changes consistent with reji or L4-L5 laminectomies. No evidence of dynamic instability. Unchanged disc dege nerative changes which are most prominent at L2-L3, and L4-5. Unchanged marked bilateral facet arthropathy at L3-S1. Procedure Note Lucille Arora MD - 01/18/2016Formatt ing of this note might be different from the original. EXAMINATION: XR LUMBAR SPINE 2 OR 3 VIEW S (GENERIC) CLINICAL HISTORY: AP lat flex/ext 3 view s to eval lumbar spinal stenosis TECHNIQUE: AP and lateral flexion-extens ion views of the lumbar spine. COMPARISON: Lumbar spine radiographs latosha ed 10/21/2013, and 05/16/2013. Lumbar spine MRI dated 01/02/2016. FINDINGS: Postsurgical changes consistent with reji or L4-L5 laminectomies. No evidence of dynamic instability. Unchanged disc dege nerative changes which are most prominent at L2-L3, and L4-5. Unchanged marked bilateral facet arthropathy at L3-S1. IMPRESSION 1. Postsurgical changes consistent with prior L4-5 laminectomies. 2. No dynamic instability. I have personally reviewed the image(s) and the residents interpretation and agree with the findings, Lucille young 01/18/2016 3:34 PM Tawanda Douglass MD IMG DX ORDERABLES documented in this encounter Visit Diagnoses Diagnosis Lumbar stenosis Spinal stenosis, lumbar region, without neurogenic claudication documented in this encounter Care Teams Dairy Worker Relationship Specialty Start Date End Date Patricio Gabriel MD PCP - General 02/20/[address] [place] [address] documented as of this encounter
--- OUTSIDE RECORDS SUMMARY | 2021-10-15 18:57 | XMS_ITS | Encounter Summary ---
:1950 Author Organization [facility] Address [address] [place] [address] Care Team Providers Name Role Phone Patricio Gabriel MD Primary Care Provider Encounter Details Date Type Department Care Team Description 04/06/1999 Hospital Encounter [facility] - [address], Tanya martinez MD 111 [facility] [address] [place], [place] [id number] [place] [address] [place], [address] [place] [address] (Wo rk) Social History Tobacco Use Types Packs/Day Years Used Date Never Assessed Sex Assigned at Date Recorded Not on file documented as of this encounter Plan of Treatment Not on filedocumented as of this encounter Procedures Procedure Name Priority Date/Time Associated Comments Diagnosis COMPLETE BLOOD COUNT Routine 04/06/1999 9:14 Resu lts for this EST procedure are i n the results section. BILIRUBIN Routine 04/06/1999 9:14 Results for this DIRECT/INDIRECT EST procedure ar e in the results section. ALT Routine 04/06/1999 9:14 Results for this EST procedure are i n the results section. LIPASE Routine 04/06/1999 9:14 Results for this EST procedure are i n the results section. AMYLASE Routine 04/06/1999 9:14 Results for this EST procedure are i n the results section. COMPREHENSIVE Routine 04/06/1999 9:14 Results for this METABOLIC PANEL (CMP) EST proced ure are in the results section. documented in this encounter Results LIPASE (04/06/1999 9:14 EST) Pathologist Sig nature Lipase 142 0 - 210 U/L [facility] Specimen Performing Organization Address City/[facility]/ZIP Code Phon e Number [facility] [address] [place] [address] SERVICES [facility] [address] [place] [address] DIRECT BILIRUBIN (04/06/1999 9:14 EST) Pathologist Sig nature Conjugated Bilirubin 0.0 0.0 - 0.3 mg/dl [facility] Unconjugated Bilirubin 0.4 0.1 - 1.1 mg/dl [facility] Specimen Performing Organization Address [facility] Phon e Number [facility] [address] [place] [address] SERVICES [facility] [address] [place] [address] (ABNORMAL) COMPREHENSIVE METABOLIC PANEL (04/06/1999 9:14 EST) Pathologist Sig nature Potassium 4.0 3.5 - 5.0 mEq/L [facility] Sodium 141 136 - 145 mEq/L [facility] Chloride 103 96 - 110 mEq/L [facility] CO2 32 (H) 24 - 30 mEq/L [facility] Total Alkaline 78 38 - 126 U/L [facility] Phosphatase Bilirubin, Total 0.7 0.2 - 1.3 mg/dl [facility] AST 40 8 - 50 U/L [facility] Albumin 3.8 3.0 - 5.5 g/dl [facility] Total Protein 6.9 6.0 - 8.5 g/dl [facility] Creatinine 0.8 0.7 - 1.5 mg/dl [facility] BUN 16 10 - 26 mg/dl [facility] Calcium 9.9 8.5 - 10.5 mg/dl [facility] Calculated Calcium 10.5 8.5 - 10.5 mg/dl [facility] Glucose, Serum 88 70 - 110 mg/dl [facility] Albumin/Globulin Ratio 1.2 [facility] Specimen Performing Organization Address City/[facility] Phon e Number [facility] [address] [place] [address] SERVICES [facility] [address] [place] [address] HEMAGRAM (04/06/1999 9:14 EST) Pathologist Sig nature WBC 9.32 4.0 - 12.4 K/cmm [facility] RBC 4.23 3.86 - 5.04 M/cmm [facility] Hemoglobin 13.3 11.6 - 15.2 gm/dl [facility] HCT 38.8 34.9 - 44.4 % [facility] MCV 92 81 - 98 fl [facility] MCH 31.4 26.7 - 33.3 pg [facility] MCHC 34.3 32.1 - 35.9 gm/dl [facility] PLT 273 141 - 320 K/cmm [facility] RDW-CV 12.4 11.7 - 14.6 % [facility] Specimen Performing Organization Address City/[facility]/ZIP Code Phon e Number [facility] [address] [place] [address] SERVICES [facility] [address] [place] [address] AMYLASE (04/06/1999 9:14 EST) Pathologist Sig nature Amylase 60 30 - 110 U/L [facility] Specimen Performing Organization Address City/[facility]/ZIP Code Phon e Number [facility] [address] [place] [address] SERVICES [facility] [address] [place] [address] ALT (04/06/1999 9:14 EST) Pathologist Sig nature ALT 44 15 - 75 U/L [facility] Specimen Performing Organization Address City/[facility]/ZIP Code Phon e Number [facility] [address] [place] [address] SERVICES [facility] [address] [place] [address] documented in this encounter Visit Diagnoses Not on filedocumented in this encounter Care Teams Hydraulic Pile Hammer Operator Relationship Specialty Start Date End Date Patricio Gabriel MD PCP - General 02/01/09 [address] [place] [address] documented as of this encounter
--- OUTSIDE RECORDS SUMMARY | 2021-10-15 18:57 | XMS_ITS | Encounter Summary ---
:1950 Author Organization [facility] [place] [address] Care Team Providers Name Role Phone Patricio Gabriel MD Primary Care Provider Reason for Referral Physical Therapy (Routine) - Closed Specialty Diagnoses / Procedures Referred By Contact Refer red To Contact Physical Therapy Diagnoses Radiculopathy of lumbar region Nancy Fountain MD Physical Therapy, [facility] [place] [facility] [address] [place] [address] [place] [address] Fax: Referral ID Status Reason Start Date Expiration Date Visits V isits Requested Authorized [id number] Closed Evaluate and 06/22/2021 12/19/2021 12 12 Treat Encounter Details Date Type Department Care Team Description 06/22/2021 Office Visit Neurosurgery at [facility] Nancy Fountain, Radiculopathy of lumbar hua on (Primary Dx); [facility] Right lumbar radiculopathy with L4-L5 [place] [address] CENTER [phone] NEUROSURGERY [place], [place] [address] Social History Tobacco Use Types Packs/Day Years Used Date Former Smoker 0.25 Quit: 05/30/19 14 Smokeless Tobacco: Never Used Alcohol Use Standard Drinks/Week Comments Yes 0 (1 standard drink = 0.6 oz pure alcoho l) Sex Assigned at Date Recorded Not on file documented as of this encounter Last Filed Vital Signs Vital Sign Reading Time Taken Comments Blood Pressure 180/85 06/22/2021 2:07 PM EDT Pulse 78 06/22/2021 2:07 PM EDT Temperature 36.8 ??C (98.2 ??F) 06/22/2021 2:07 PM EDT Respiratory Rate 16 06/22/2021 2:07 PM EDT Oxygen Saturation - - Inhaled Oxygen Concentration - - Weight 67.5 kg (148 lb 12.8 oz) 06/22/2021 2:07 PM EDT Height 165.1 cm (5' 5) 06/22/2021 2:07 PM EDT Body Mass Index 24.76 06/22/2021 2:07 PM EDT documented in this encounter Progress Notes Nancy Fountain MD - 06/22/2021 2:20 PM EDT It was a pleasure to see Yesi Estrella years in follow-up today. Ms. Estrella is a 71-year-old woman whom I am following for lumbar radiculopathy in the setting of a recurrent herniated disc. I performed a redo L5 laminectomy with microdiscectomy of the right L5-S1disc herniation on May 08, 2021, after she had presented to the emergency department with excruciating right lower extremity pain. Today, she reports that she has done well at home. She is back to walking with a cane. She has residual right foot numbness, which was present before surgery although it may be slightly worse. She alsoreports some swelling of the right lower extremity, which is improving. She also has some weakness with curling of the toes. She has some soreness at the incisional site in the back, however the excruciating pain she experienced prior to surgery is resolved. She does have some small pains in the hamstrings. On exam, she is a well-healed posterior midline incision, without erythema, fluctuance, or drainage.She is walking with good stable gait with a cane. The left leg and foot is full strength in all major muscle groups. The right leg is full strength with hip flexion, hip extension, knee flexion, knee extension, and 4 out of 5 with dorsiflexion, and 4-5 with plantar flexion. There is numbness in the sole and lateral foot on the right. Overall, I am pleased with how Ms. Banda is has recovered since surgery. I think that the increased numbness after manipulation of the right L5 root is expected, particularly as this occurred following her last operation several years ago as well. She acknowledges that she is also older and therefore may have additional issues with nerve healing. I think it still early, and she could regain additional function as she recovers from surgery. I recommended that she start physical therapy, I will place a consult today. She also asked for additional muscle relaxants which I am happy to provide. I have sent a prescription for Flexeril to her pharmacy, and have advised that she should continue to seekrefills with her primary care provider. I would like to see her in follow-up in 6 months to see how her foot is doing. Plan; 1. Referral to physical therapy 2. Refill for Flexeril 3. Follow-up with me in 6 months. documented in this encounter Plan of Treatment Upcoming Encounters Date Type Specialty Care Team Description 12/28/2021 Office Visit Neurosurgery Nancy Fountain MD [facility] [address] [place], [place] [address] (Wo rk) Scheduled Referrals Name Type Priority Associated Diagnoses Order S chedule Referral to Outpatient Referral Routine Radiculopathy of Orde red: Physical Therapy lumbar region 06/22/2021 documented as of this encounter Visit Diagnoses Diagnosis Radiculopathy of lumbar region - Primary Thoracic or lumbosacral neuritis or radi culitis, unspecified Right lumbar radiculopathy with L4-L5 HN P Thoracic or lumbosacral neuritis or radi culitis, unspecified documented in this encounter Care Teams Banking Paralegal Relationship Specialty Start Date End Date Patricio Gabriel MD PCP - General 02/20/[address] [place] [id number] documented as of this encounter
--- OUTSIDE RECORDS SUMMARY | 2021-10-15 18:57 | XMS_ITS | Encounter Summary ---
:1950 Author Organization [facility] Address [address] [place] [address] Care Team Providers Name Role Phone Patricio Gabriel MD Primary Care Provider Reason for Visit Reason Comments Follow-up Encounter Details Date Type Department Care Team Description 10/21/2013 Office Visit [facility], S/P Qi Lambert [place] L4-S1 decompression, [facility] L4-[address] - 09/14/13 (Evonne) [place], [place] [facility] (Primary Dx) [address] [place] [id number] [phone] Social History Tobacco Use Types Packs/Day Years Used Date Former Smoker 0.25 Quit: 05/30/19 14 Smokeless Tobacco: Never Used Sex Assigned at Date Recorded Not on file documented as of this encounter Last Filed Vital Signs Vital Sign Reading Time Taken Comments Blood Pressure - - Pulse - - Temperature - - Respiratory Rate - - Oxygen Saturation - - Inhaled Oxygen Concentration - - Weight 65.8 kg (145 lb) 10/21/2013 1:35 PM EDT Height 165.1 cm (5' 5) 10/21/2013 1:35 PM EDT Body Mass Index 24.13 10/21/2013 1:35 PM EDT documented in this encounter Progress Notes Tawanda Douglass MD - 10/21/2013 2:02 PM EDT DATE OF SURGERY: 09/14/2013. SURGERY: L4-S1 revision hemilaminectomy and right L4-L5 diskectomy. INTERVAL HISTORY: Ms. Vallieres returns today about four weeks out from surgery. She notes that the sharp right buttock pain she was getting with standing and walking has improved, though she does have some dysesthetic pain radiating down the right leg in an L5 distribution. Her back pain is also somewhat improved. Below her knee on the right, she feels as though she has some increased numbness in the area where she had pain. She does feel that the great toe extension is better than before surgery. She denies any fevers, chills, or drainage from the wound. She has cut her hydromorphone down to 4 mg three times a day. She is also taking gabapentin and Tylenol. PHYSICAL EXAMINATION: General: The patient is comfortable, no acute distress. Back: She has a well-healed midline incision. There is no drainage or surrounding erythema. Motor exam reveals 4/5 strength in the right EHL with all other motor groups' strength at 5/5. She has some decreased sensation on the dorsum of the right foot. IMAGING: AP and lateral views of the lumbar spine obtained today demonstrate hemilaminectomy on the right from L4 through S1. She has very slight anterolisthesis of L4 on L5 similar to the preop study. ASSESSMENT/PLAN: Ms. Estrella is a 63-year-old female about one month out from her right L4-S1 decompression. While she has had some improvement in acute pain radiating to the right lower extremity, she still does get some dysesthetic sensation there and sensations of numbness where she was having pain in the past. She does have fairly extensive scarring in the region due to her prior surgery, and I explained to her that in this case it can take longer for the nerves to recover. I recommend that she continue taking combination of ibuprofen, Tylenol, gabapentin, and Dilaudid. I suggested taking 600 mg of gabapentin at night before bed to help with sleep, as that is when her pain tends to be the worse. I will plan to follow up with her in four weeks with no x-rays at that time. documented in this encounter Plan of Treatment Upcoming Encounters Date Type Specialty Care Team Description 12/28/2021 Office Visit Nancy Muse MD [facility] [address] [place], [place] [address] (Wo rk) documented as of this encounter Visit Diagnoses Diagnosis S/P Revision Right L4-S1 decompression, Right L4-5 diskectomy - 09/14/13 (Evonne) - Primary Personal history of surgery to other org ans documented in this encounter Care Teams Camp Advisor Relationship Specialty Start Date End Date Patricio Gabriel MD PCP - General 02/20/[address] [place] [address] documented as of this encounter
--- OUTSIDE RECORDS SUMMARY | 2021-10-15 18:57 | XMS_ITS | Encounter Summary ---
:1950 [place] [address] Care Team Providers Name Role Phone Patricio Gabriel MD Primary Care Provider Encounter Details Date Type Department Care Team Description 01/20/2018 Hospital Encounter Radiology Library at Patience Vazquez, [place] [facility] [place] [address] GASTROENTEROLOGY [phone] [place] [address] (Wo rk) Social History Tobacco Use Types [...] Nancy Fountain MD [facility] [address] [place], [place] [address] (Wo rk) documented as of this encounter Procedures Procedure Name Priority Date/Time Associated Diagnosis Comme nts FILM LIBRARY Routine 01/20/2018 12:05 AM Results for this STORAGE ONLY CT EDT procedure ar e in CHEST ABDOMEN the results PELVIS section. documented in this encounter Results Film Library- Storage Only CT Chest Abdomen Pelvis (01/20/2018 12:05 AM EDT) Specimen (Source) Anatomical Location Collection Method / Collectio n Time Received Time / Laterality Volume Narrative [facility] - 01/21/2018 1:10 AM EDT This exam is for storage only and is aut o-finalizing. Adrian Vazquez MD IMG FILM LIBRARY ORDERABLES Performing Organization Address City/State/ZIP Code Phon e Number [place], [place] documented in this encounter Visit Diagnoses Not on filedocumented in this encounter Care Teams Electric Golf Cart Repairers Relationship Specialty Start Date End Date Patricio Gabriel MD PCP - General 02/20/[address] [place] [address] documented as of this encounter
--- OUTSIDE RECORDS SUMMARY | 2021-10-15 18:57 | XMS_ITS | Encounter Summary ---
:1950 Author Organization [facility] [place] [address] Care Team Providers Name Role Phone Patricio Gabriel MD Primary Care Provider Reason for Referral Consultation (Routine) - Closed Specialty Diagnoses / Procedures Referred By Contact Refer red To Contact Pain Management Diagnoses H/O lumbar discectomy Tawanda Douglass MD [facility] [address] [place] [address] [facility] [address] Fax: Referral ID Status Reason Start Date Expiration Date Visits V isits Requested Authorized [id number] Closed Consult Only 01/18/2016 01/17/2017 1 1 Reason for Visit Reason Comments Low Back Pain Consultation (Routine) - Closed Specialty Diagnoses / Procedures Referred By Contact Refer red To Contact Orthopaedics Diagnoses RLE pain and numbness Franky Mullen MD Pearson, Adam M, MD [facility] [address] [place] [address] Fax: Referral ID Status Reason Start Date Expiration Date Visits V isits Requested Authorized [id number] Closed Consult, 01/09/2016 01/08/2017 1 1 Test & Treat Connection Center Encounter Details Date Type Department Care Team Description 01/18/2016 Office Visit [facility], S/P Qi Hartman MD L4-S1 decompression, [facility] L4-[address] - 09/14/13 (Evonne) [place], [place] SPINE CENTER [address] [place] [address] [phone] Social History Tobacco Use Types Packs/Day Years [...] - Inhaled Oxygen Concentration - - Weight 68 kg (150 lb) 01/18/2016 2:45 PM EDT Height 165.1 cm (5' 5) 01/18/2016 2:45 PM EDT Body Mass Index 24.96 01/18/2016 2:45 PM EDT documented in this encounter Progress Notes Tawanda Douglass MD - 01/18/2016 3:20 PM EDT DATE OF SURGERY: 09/14/13 SURGERY: L4-S1 revision right-sided hemilaminectomy and right L4-L5 diskectomy. INTERVAL HISTORY: Ms. Estrella returns today over 2 years out from surgery. She initially did well and had resolution of her right lower extremity pain, but she continued to have some numbness. Over the past year or so, she has had increasing pain that radiates to her right buttock, posterolateral thigh, lateral leg and to the dorsum of the right foot. She still has some numbness in her right lateral leg and dorsum of the right foot. The pain is worse with standing and walking and improves if she sits down. Her standing is limited to about 30 minutes and walking to less than half a mile. She has treated this with gabapentin, tramadol, ibuprofen, and Tylenol all of which helped to some degree. She has not had any recent physical therapy or epidural steroid injections, though she did have those prior to her last surgery without much benefit. PHYSICAL EXAM: The patient is 5 feet 5 inches, 150 pounds with a BMI of 25. In general, the patient is comfortable in no acute distress. Back: She has a well-healed midline incision. There is some tenderness to palpation over her right SI joint and right sciatic notch. She can flex 40 degrees and extend 10 degrees, with extension being painful. Neurologic exam: She has 5 out of 5 strength in all lower extremity motor groups. She has some diminished sensation in her right lateral leg and dorsum of the right foot. Reflexes are 1 out of 4 at the knees and ankles symmetric. Straight leg raise is negative bilaterally. She has no clonus. Babinski is negative. Hip exam: She has normal, painless range of motion both hips. Vascular exam: She has palpable distal pulses bilaterally. IMAGING: AP and lateral flexion/extension x-rays of the lumbar spine obtained today demonstrate marked degenerative changes most notable at L4-L5 and to a lesser extent at L5-S1. She has a very subtle anterolisthesis of L4 and L5, does not change much with flexion or extension. She has a laminectomy evident from L4 through the sacrum. MRI of the lumbar spine from 01/02/16 demonstrates a well decompressed region at L4-L5. At L5-S1, she has severe bilateral foraminal stenosis. She has some degree of epidural fibrosis in the laminectomy bed. ASSESSMENT/PLAN: Ms. Estrella is a 65-year-old female who has had multiple decompressive surgeries in the lumbar spine, most recently on the right from L4 through S1 two years ago. She had a recurrence of her right L5 radiculopathy. She had an EMG that shows chronic right L5 radiculopathy. We discussed treatment options and risks that include continued medication, physical therapy, injections, and potentially surgery. She wants to go ahead with an injection, so we will set her up for a right L5-S1 transforaminal injection that she can repeat as indicated. In the event that nonoperative treatment fails and she wants to discuss surgery, she should return to see me. She would need no further imaging if it was within the next year. Surgery in her case would most likely have to involve an L4-S1 fusion with a right-sided revision foraminotomy at L5-S1 with possible TLIF at that level with iliac crest bone graft. She is not interested in pursuing a large operation like that with an elevated risk of complications or incomplete relief of her symptoms given her multiple prior surgeries. She will let us know in the event that she wants to discuss that further. documented in this encounter Plan of Treatment Upcoming Encounters Date Type Specialty Care Team Description 12/28/2021 Office Visit Neurosurgery Nancy Fountain MD [facility] DR NEUROSURGERY [place], [place] [address] (Wo rk) Scheduled Referrals Name Type Priority Associated Diagnoses Order S chedule Referral to Pain Outpatient Referral Routine S/P Revision Righ t Ordered: Clinic L4-S1 decompression, 016 Right L4-5 diskectomy - 09/14/13 (Evonne) documented as of this encounter Visit Diagnoses Diagnosis S/P Revision Right L4-S1 decompression, Right L4-5 diskectomy - 09/14/13 (Evonne) Personal history of surgery to other org ans documented in this encounter Care Teams Finisher Brush Relationship Specialty Start Date End Date Patricio Gabriel MD PCP - General 02/20/[address] [place] [address] documented as of this encounter
--- OUTSIDE RECORDS SUMMARY | 2021-10-15 18:57 | XMS_ITS | Encounter Summary ---
:1950 Author Organization [facility] [place] [address] Care Team Providers Name Role Phone Patricio Gabriel MD Primary Care Provider Reason for Visit Reason Onset Date Comments Post Hospital Discharge 05/14/2021 Encounter Details Date Type Department Care Team Description 05/14/2021 Telephone Neurosurgery at [facility] Robyn Cochran [facility] [place] [address] Social History Tobacco Use Types Packs/Day Years Used Date Former Smoker 0.25 Quit: 05/30/19 14 Smokeless Tobacco: Never Used Alcohol Use Standard Drinks/Week Comments Yes 0 (1 standard drink = 0.6 oz pure alcoho l) Sex Assigned at Date Recorded Not on file documented as of this encounter Miscellaneous Notes Telephone Encounter - Robyn Cochran RN - 05/14/2021 11:19 AM EST Yesi Estrella 1950 71 y.o. [id number] F/U call s/p L5-S1 hemilaminectomy and micro discectomy on 05/08/[address] Fountain Date of discharge: 05/10/21 Date of call: 05/14/21 Neuro: alert and oriented: yes Dizzy or lightheaded: denies Numbness/tingling/weakness: numbness in knee to foot unchanged Ambulation: ambulating in home every hour with a walker Incision: looks good [place] to be removed by VN Pain: leg pain/ache, taking Flexeril, Tylenol during the day and Oxycodone at night PO: eating and drinking well B&B: working well Sleep: not well last night due to leg aching until took the Flexeril Other: PT going in tomorrow documented in this encounter Plan of Treatment Upcoming Encounters Date Type Specialty Care Team Description 12/28/2021 Office Visit Neurosurgery Nancy Fountain MD [facility] NEUROSURGERY [place], [place] [address] (Wo rk) documented as of this encounter Visit Diagnoses Not on filedocumented in this encounter Care Teams Veterinary Technician Assistant Relationship Specialty Start Date End Date Patricio Gabriel MD PCP - General 02/20/[address] [place] [id number] documented as of this encounter
--- OUTSIDE RECORDS SUMMARY | 2021-10-15 18:57 | XMS_ITS | Encounter Summary ---
:1950 Author Organization [place] [address] Care Team Providers Name Role Phone Patricio Gabriel MD Primary Care Provider Encounter Details Date Type Department Care Team Description 06/22/2021 Travel Social History Tobacco Use Types Packs/Day Years [...] 12/28/2021 Office Visit Neurosurgery Nancy Fountain MD [facility] [address] [place], [place] [address] (Wo rk) documented as of this encounter Visit Diagnoses Not on filedocumented in this encounter Care Teams Farm Equipment Operator Relationship Specialty Start Date End Date Patricio Gabriel MD PCP - General 02/20/10 [address] [place], [place] [id number] documented as of this encounter
--- OUTSIDE RECORDS SUMMARY | 2021-10-15 18:57 | XMS_ITS | Encounter Summary ---
:1950 Author Organization [facility] [place] [address] Care Team Providers Name Role Phone Patricio Gabriel MD Primary Care Provider Reason for Visit Reason Comments Back Pain Leg Pain right Auth/Cert Specialty Diagnoses / Procedures Referred By Contact Refer red To Contact Diagnoses Back pain Procedures na Referral ID Status Reason Start Date Expiration Date Visits Requ ested Visits Authorized [id number] 1 1 Encounter Details Date Type Department Care Team Description 05/08/2021 Surgery Main Operating Room Charley Fountain MD LAMINECTOMY LUMBAR, [facility] DECOMPRESSION, 1 OR [address] [facility] [address] CANTOR (WRVU 16.43) [facility] NEUROSURGERY [place] [id number] [phone] Social History Tobacco Use Types Packs/Day Years Used Date Former Smoker 0.25 Quit: 05/30/19 14 Smokeless Tobacco: Never Used Alcohol Use Standard Drinks/Week Comments Yes 0 (1 standard drink = 0.6 oz pure alcoho l) Sex Assigned at Date Recorded Not on file documented as of this encounter Last Filed Vital Signs Vital Sign Reading Time Taken Comments Blood Pressure 135/77 05/08/2021 12:45 PM EST Pulse 72 05/08/2021 12:45 PM EST Temperature 36.9 ??C (98.4 ??F) 05/08/2021 12:20 PM EST Respiratory Rate 15 05/08/2021 12:45 PM EST Oxygen Saturation 97% 05/08/2021 12:45 PM EST Inhaled Oxygen Concentration - - Weight 65.7 kg (144 lb 12.8 oz) 05/07/2021 10:39 PM EST Height 165.1 cm (5' 5) 05/07/2021 10:56 AM EST Body Mass Index 24.1 05/07/2021 11:23 AM EST documented in this encounter Discharge Summaries Nancy Fountain MD - 05/10/2021 12:02 PM EST Patient Name: Yesi Estrella Patient Age: 71 y.o. Admit date: 05/07/2021 Discharge Date and Time: 05/10/21 1:05 PM Attending Physician: Nancy Fountain MD Discharging Provider: Jacki Jiménez APRN Discharging Service: NEUROSURGERY Operations/Major Procedures: 05/08/2021: Nancy Fountain MD: L5-S1 hemilaminectomy and micro discectomy Active Hospital Problems: Active Hospital Problems Diagnosis ??? Back pain Resolved Hospital Problems No resolved problems to display. Active Non Hospital Problems: Active Non-Hospital Problems Diagnosis ??? Radiculopathy of lumbar region ??? S/P Revision Right L4-S1 decompression, Right L4-5 diskectomy - 09/14/13 ([place]) ??? Atrial fibrillation with RVR, chronic ??? Thoracic or lumbosacral neuritis or radiculitis, unspecified ??? Chronic leg pain ??? Chronic low back pain ??? Right lumbar radiculopathy with L4-L5 HNP History of Presentation: Per review of relevant records Yesi Estrella is a 71 y.o. right-handed female with a PMHx significant for HTN, TIIDM, Afib on no anticoagulation, essential tremor (on no medications), and chronic back and leg pain (s/p L L3-5 hemilaminectomies w L3-[address] Lu 03/2004 and then L4-S1 R hemilaminectomies, R L4-[address] Douglass 08/2013) who presents to the ED with R leg pain, numbness, and weakness. ?? Yesi is accompanied by her today. Over the last 3-4 weeks she has been dealing with pain inher R buttock with radiation into the side and back of the leg. She has always had numbness in the front of her ruth and on the top of her right foot, but now it seems like the numbness is going up higher and including more of her foot. She hasn't been able to walk without hanging on to her she thinks due to pain and not being able to feel the floor well. She denies having any left sided symptoms or bowel/bladder changes. Yesi has been working with her PCP to find a helpful medication for pain control, without much success. A referral to the Pain Clinic was sent and she was due for an outpa tient MRI tomorrow, but chose to come today because, she just couldn't take it any more. Hospital Course: Yesi Estrella presented 05/07/2021 and was admitted under the neurosurgery service to the general neuro floor for further work-up and management of her RIGHT L5-S1 disc herniation. On 05/08/21 patient taken to the OR with Dr. Fountain and underwent L5-S1 hemilaminectomy and micro discectomy. Incision was closed with hietsh (due to be removed 05/22/21). There were no complications with the procedure. Patient tolerated the procedure well. Following the procedure patient was extubated suc cessfully, awakened in PACU, and transferred back to the general neuro floor for pain management andneurological observation. Patient was evaluated by rehab services and deemed appropriate for home with VNA.Patient will be discharged home with a walker. Patient was discharged in stable condition 05/10/21 At time of discharge patient is afebrile, hemodynamically stable, tolerating a regular diet, ambulating with minimal assistance with walker, voiding spontaneously, and managing pain with oral pain medications. Denies chest pain or shortness of breath. Patient will be discharged home on a short course of Oxycodone for pain management. Case was discussed with Neurosurgery Attending, Dr. Nancy Fountain, who agrees with the above plan. Important Studies and Lab Data: Labs: Recent Results (from the past 24 hour(s)) Basic Metabolic Panel (non-fasting) Result Value Ref Range Glucose Lvl 180 65 - 199 mg/dL BUN 12 8 - 18 mg/dL Creatinine 0.70 0.70 - 1.20 mg/dL Sodium 139 135 - 145 mmol/L Potassium 3.9 3.5 - 5.0 mmol/L Chloride 103 98 - 107 mmol/L CO2 26 22 - 31 mmol/L Anion Gap 10 5 - 15 mmol/L Calcium 8.8 8.5 - 10.5 mg/dL Estimated GFR 87 >=60 mL/min/1.73 m?? Hemogram Result Value Ref Range WBC 10.8 (H) 4.0 - 9.5 x10(3)/mcL RBC 3.57 (L) 4.00 - 5.21 x10(6)/mcL Hemoglobin 11.8 11.7 - 15.5 g/dL Hematocrit 34.3 (L) 35.7 - 45.8 % MCV 96.1 (H) 82.6 - 94.4 fL MCH 33.1 (H) 27.1 - 32.0 pg MCHC 34.4 31.7 - 35.0 g/dL Platelets 174 145 - 357 x10(3)/mcL RDWSD 47.1 (H) 37.0 - 46.0 fL RDWCV 13.3 11.5 - 14.1 % MPV 10.3 7.6 - 12.9 fL nRBC % Auto 0.0 % nRBC Abs Auto 0.000 0.000 - 0.000 x10(3)/mcL Differential, Automated Result Value Ref Range Neutrophils % 74.8 % Neutr Abs (ANC) 8.10 (H) 1.70 - 6.10 x10(3)/mcL Lymphocytes % 16.5 % Lymphocytes Abs 1.8 0.9 - 3.2 x10(3)/mcL Monocytes % 7.4 % Monocyte Abs 0.8 0.3 - 0.9 x10(3)/mcL Eosinophils % 0.6 % Eosinophils Abs 0.1 0.0 - 0.4 x10(3)/mcL Basophils % 0.2 % Basophils Abs 0.0 0.0 - 0.1 x10(3)/mcL Immature Gran % 0.50 % Denise Gran Abs 0.05 (H) 0.00 - 0.04 x10(3)/mcL COVID-19 PCR Specimen: Nasopharyngeal Swab Symptoms->Surveillance Result Value Ref Range SARS-CoV-2 RNA Not Detected Not Detected SARS-Cov-2 RNA Source STONE LATHE OPERATOR Swab Studies: Results for orders placed or performed during the hospital encounter of 05/07/21 MRI Lumbar Spine wo Contrast (Generic) (Exam End: 05/07/2021 2:03 PM) Impression 1. New right posterior paracentral L5-S1 disc extrusion with impingement of the right S1 nerve root. 2. Interval worsening of facet arthropathy at L4-5 and L5-S1 with marked bilateral subarticular recess narrowing at L4-5 and bilateral neural foramen narrowing at L5-S1 Comment: The following findings are so common in people without low back pain that while we report their presence, they must be interpreted with caution and in context of the clinical situation (Reference- Jarvik Et Al, Spine 2001). Findings: (Prevalence in patients without low back pain), disc degeneration (decreased T2 signal, height loss, bulge) (91%), disc T2-signal loss (83%), disc height loss (56%), disc bulge (64%), disc protrusion (32%), annular fissure (38%). Thank you for letting us participate in the care of this patient. If you are a health care provider and have any questions regarding this report, please contact the number below. For patients who have questions please contact the health neonatal intensive care nurse that requested your imaging first. Electronically signed by: Hermann Villarreal MD, [facility] ([phone]), at 05/07/2021 2:16 PM Pending Studies and Lab Data: N/A Discharge Condition: Stable Discharge to: Home with VNA Future Appointments and Orders Future Orders Complete By Expires Referral to Home Health - at DISCHARGE [[id number] CPT(R)] As directed Process Instructions: Scheduling Instructions: Comments: DOCUMENTATION FOR VNA SERVICES (INCLUDING THOSE PATIENTS WITH MEDICARE COVERAGE REQUIRING HOME VNA SERVICES AND/OR HOSPICE SERVICES) PATIENT'S LOCATION: [place] [address] [phone] (home) Cell: Telephone Information: Railroad Police Officer's Name: Marcus In discussion with the attending physician, it is certified that this patient is under their care and that they, or a Nurse Practitioner,Clinical Nurse specialist or Physician Offset Printing Operator who is working directly with them, had a face to face encounter that meets the physician face to face encounter requirements with this patient on 05/10/2021. The encounter with the patient was in whole, or in part, for the following medical condition, which is the primary reason for home health care services: Laminectomy In discussion with the provider, it is certified that, based on their findings, the following services are medically necessary for home health services. To provide the following care/treatments with the clinical findings supporting the need for servicesas follows: HOME CARE ORDERS: PT ORDERS: Continue rehab for endurance, gait stability and strength with mobility and transfers. Home safety evaluation. Home exercise program if appropriate. OT: assess and continue rehab for managing ADL's. HOME HEALTH CARE AGENCY: [facility] PHONE: [phone] FAX: [phone] Start of care: FOR MEDICARE ONLY: In discussion with the attending physician, it is certified that the clinical findings support that this patient is homebound because absences from home require considerable and taxing effort due to: new to using device (FWW) and back pain s/p laminectomy Please note that any additional orders needs or changes will need to be obtained from this patient'sPCP: Patricio Gabriel MD [address] / [place] [address] All VNA agencies which cover the area of patient's residence have been reviewed, either verbally or in writing, and patient/family have chosen the home health care agency noted Questions: [facility] What services are requested: Physical Therapy Occupational Therapy Start date: Responsible MD post discharge contact info: PCP Walker standard [EQ135 Custom] As directed Process Instructions: Scheduling Instructions: Comments: Yesi Estrella [address] [place] [phone] (home) Telephone Information: Diagnosis: deconditioning with Unsteady gait, back pain s/p hemilaminectomy Significant weakness, ataxia or gait abnormality Patient's: Hgt: Ht Readings from Last 1 Encounters: 05/07/21 : 165.1 cm (5' 5) ? Wgt: Wt Readings from Last 1 Encounters: 05/07/21 : 65.7 kg (144 lb 12.8 oz) VENDOR: [facility] Located @ [facility] [place], [place] Ordering: Front wheel walker Deliver to 's hospital room #: 149B Questions: Vendor Name/Contact information: [facility] Discharge Medications: Your Medications Some of the medications listed here do not show instructions, such as how often to take the medication. Ask your doctor or nurse how to use these medications. Specifically ask about this and similar medications: CIS Free Text Med - HORMONE REPLACEMENT THERAPY New Medications Dose Details cyclobenzaprine 10 mg Tab Commonly known as: Flexeril Take 1 tablet by mouth 3 times daily as needed for Muscle spasms. 10 mg Quantity: 30 tablet Refills: 0 docusate sodium 100 mg Cap Commonly known as: Colace Take 1 capsule by mouth 2 times daily as needed for Constipation for up to 10 days. 100 mg Quantity: 20 capsule Refills: 0 oxyCODONE 5 mg Tab Commonly known as: Roxicodone Take 1 tablet by mouth every 4 hours as needed for Pain (moderate pain (4-6)). 5 mg Quantity: 20 tablet Refills: 0 polyethylene glycoL 17 gram Pwpk Commonly known as: Miralax Take 17 g by mouth daily as needed. 17 g Quantity: 14 each Refills: 0 Continued medications, unchanged Dose Details acetaminophen 500 mg Tab Commonly known as: Tylenol Take 2 tablets by mouth every 8 hours. 1,000 mg Quantity: 30 tablet Refills: 1 atenoloL 50 mg Tab Commonly known as: Tenormin Refills: 0 CIS FREE TEXT MED Refills: 0 estradioL 0.075 mg/24 hr Ptwk Commonly known as: CLIMARA APPLY 1 PATCH WEEKLY Refills: 12 gabapentin 300 mg Cap Commonly known as: Neurontin Take 1 capsule by mouth 3 times daily. Begin with 1 cap at HS X 3 days, then 1 cap Q AM and HS X 3 day, then 1 cap TID. 300 mg Quantity: 90 capsule Refills: 1 lisinopriL 20 mg Tab Commonly known as: Zestril TAKE ONE TABLET BY MOUTH EVERY DAY NEEDS ANNUAL EXAM Refills: 4 pantoprazole EC 40 mg Tbec Commonly known as: Protonix Refills: 0 STOPPED Medications traMADoL 50 mg Tab Commonly known as: Ultram Updated Allergies/ADRs: Allergies Allergen Reactions ??? Meperidine Hcl Anaphylaxis ??? Prochlorperazine CIS - JITTERY Follow-up Recommendations for Providers: Please see Discharge Instructions Please follow up in Neurosurgery Clinic with Dr. Fountain in 4-6 weeks. Please follow up with your PCP within 5-7 days after discharge. Your hitesh will need to be removed on 05/22. Either your PCP or the Neurosurgery Clinic can do this. Outpatient referrals: N/A Instructions Given to Patient at Discharge: Patient Instructions SPINAL SURGERY DISCHARGE INSTRUCTIONS PRESCRIPTION INSTRUCTIONS: Please see the medication reconciliation list on this discharge summary for a current list of your medications. Stop the use of blood thinning medications until instructed otherwise by your surgical team. This includes medications known as antiplatelet, anticoagulant, and non-steroidal anti-inflammatory (NSAIDs)drugs. Common opoh-jli-joovxmd medications which should be avoided include Aspirin, ibuprofen, and naproxen among others. These medications are sometimes combined with other drugs or are sold under a trade name. Common prescription medications which should be avoided include Plavix (clopidogrel) and Coumadin (warfarin) among others. The following medications are commonly prescribed after surgery. An [x] indicates that these medications have been prescribed for you. [x] Opioids - Pain relief: Oxycodone 5mg every 4-6 hours Opioids are commonly prescribed after surgery for severe pain. DO NOT use alcohol, drive, or operateheavy machinery while taking these medications. These medications may cause constipation. [x] Stool softeners - Constipation relief: docusate or senakot Stool softeners are commonly used after surgery to help make stools easier to pass. These medications can be obtained zwzp-bym-bcsqymp and their use is recommended on an as needed basis for hard or difficult stools. They should be discontinued for loose stools and diarrhea. [x] Antispasmodics - Muscle Relaxants: Flexeril (cyclobenzaprine) as needed for muscle spasm/tightness Muscle relaxeants can help with the tension in the muscle in your neck or back. They may also make some people feel drowsy and unsteady on their feet. These medications should not be taken immediately prior to activity unless you know how they make you feel. DO NOT use alcohol, drive, or operate heavymachinery while taking these medications. WHEN TO SEEK MEDICAL CARE: Signs or symptoms of an infection: - Fever over 101F - Redness, swelling, or increasing pain around your incision - Drainage of pus, blood, or clear fluid from your incision New neurologic symptoms: - New sensory changes such as numbness, tingling, or altered sensation - New weakness, unsteadiness, difficulty walking, or difficulty using your hands - New pain that radiates down your spine or into one of you extremities - New bowel or bladder dysfunction such as incontinence or retention Constipation not relieved by diet and/or ohuz-xwp-hptabte stool softeners and laxatives Nausea/vomiting (upset stomach) not controlled with anti-nausea medication Symptoms of a deep venous thrombosis (DVT) or pulmonary embolism (PE): - Swelling/warmth/redness of the leg - Pain in the leg, which can be worse with standing or walking - Chest pain or shortness of breath To help prevent a DVT: - Exercise regularly. Walking, at least several times daily, is helpful. - Ankle pump exercises (like pressing and releasing the gas pedal) should be done regularly. - Keep hydrated with water or other clear liquids (coffee/tea/cola can dehydrate you). - Avoid alcohol and crossing your legs. - Remember not to sit or lay in bed, while awake, for prolonged amounts of time. WOUND CARE: - Keep incisional site clean and dry. You can remove your dressing 2 days after surgery. - You may shower and shampoo incisional site, per your usual routine, 4 days after surgery. - Do not pick/scratch/itch your incision. Pat dry. - Do not submerge your incision underwater (do not bath in a tub or go swimming in any pools, [place], lakes, oceans) for a minimal of 4 weeks after the operation. - Please consider taking supplemental Vitamin C (500mg) for up to 3 months, Zinc (220mg) for 2-6 weeks, and Vitamin A (10,000units) for up to 5 days as these supplements may decrease your risk of infection and promote healing of your surgical wound. - Keep your incision out of the sun for at least 6 months. The new skin is at high risk of having malignant (cancerous) changes and UV sunlight also makes scars more pronounced. DIET: - You may resume your usual diet. - Make sure your stay well hydrate. - A well-balanced diet is recommended for wound healing. - Prune juice or prunes can be added to your diet to assist with any constipation. - If you do not have kidney diease, it is recommended that you consume extra protein to help your body heal. You may consider supplemental protein in the form of shakes, powders, or bars. - Consider foods high in calcium (ex. dairy products or dark, leafy greens) and vitamin D (ex. Seafood) if you have had a spinal fusion as these will help your bones heal. You should also consider taking supplemental calcium (citrate is better than carbonate) 1000mg and vitamin D3 600units daily. ACTIVITY: - You should avoid lifting more than 5 lbs. - Restrict strenuous activity (such as running, jumping, jogging, shoveling, etc.) until cleared by your surgical team - Avoid bending and twisting your spine. DRIVING: - Do not drive while taking narcotic pain medication. [x] You may return to driving 2 weeks after surgery. FOLLOW UP PLAN: Incision: Please follow up for staple removal approximately 2 weeks after the operation on 05/22/21 with your Primary Care Provider or with the Neurosurgery STONE LATHE OPERATOR/RN. Your hitesh may also be removed at rehab. Appointments: Please follow up in the Neurosurgery Clinic in 4-[address] Fountain. Please call the NeurosurgeryOffice at [phone] if you do not receive a scheduled appointment within two weeks. Follow-up Imaging: None HOW TO REACH NEUROSURGERY Office Hours: Friday through Friday, 8am-5pm. Call . On weekends or after office hours: Call [phone] and ask the panel flow machine operator to page the NeurosurgeryResident/Advanced Practice Provider applications programmer analyst. IMPORTANT PHONE NUMBERS: Outpatient Nurse (Robyn Cochran) Inpatient Nurses Neurosurgical Resident/Advanced Practice Provider On-Call (after 5pm or before 8am) Neurosurgery offices (Friday through Friday between 8am-5pm): Adult Neurosurgery Dr. Luigi P. Giovana Dr. Jv A. Ball Dr. Hermann J. Eszeenat Ernandez Pediatric Neurosurgery Dr. Harika Nelson Advanced Practice Providers Elle Morgan, Nurse Practitioner (outpatient) Génesis Parekh, Physician Offset Printing Operator (inpatient) Abiola Saxena, Nurse Practitioner (inpatient) Sima Diaz, Physician Offset Printing Operator (inpatient) Sima Reddy, Physician Offset Printing Operator (inpatient) Brenda Davidson, Nurse Practitioner (outpatient: vascular) Daysi Jeffery Physician Offset Printing Operator (outpatient: spine) Abhishek Mckinney, Nurse Practitioner (inpatient/outpatient) Cain Kelley, Physician Offset Printing Operator (outpatient) Fabiana Magaña Nurse Practitioner (outpatient: neuro-oncology) HOW TO REACH NEUROSURGERY Office Hours (Friday through Friday 8am-5pm): Call On weekends or after office hours (after 5pm or before 8am): Call [phone] and ask the panel flow machine operator to page the Neurosurgery Resident/Advanced Practice Provider applications programmer analyst. *Your surgeon may not be manager call center (especially after office hours or on the weekend) so be ready to tell about yourself and your surgery when you call. Neurosurgery Providers Adult Neurosurgery Dr. Luigi Ernandez Pediatric Neurosurgery Dr. Harika Nelson Advanced Practice Providers Elle Morgan, Nurse Practitioner (outpatient) Génesis Parekh, Physician Offset Printing Operator (inpatient) Abiola Saxena, Nurse Practitioner (inpatient) Sima Diaz Physician Offset Printing Operator (inpatient) Piyush Voss, Nurse Practitioner (outpatient: pediatric) Sima Reddy Physician Offset Printing Operator (inpatient) Brenda Davidosn, Nurse Practitioner (outpatient: vascular) Daysi Jeffery Physician Offset Printing Operator (outpatient: spine) Abhishek Mckinney, Nurse Practitioner (inpatient/outpatient) Cain Kelley Physician Offset Printing Operator (outpatient) Fabiana Magaña, Nurse Practitioner (outpatient: neuro-oncology) Outpatient Nurses Lupe Woody Robyn Jiménez, PRERNA 05/10/2021 documented in this encounter Discharge Instructions Patient Jacki Rojo, TAR BOILER - 05/09/2021 7:14 AM EST SPINAL SURGERY DISCHARGE INSTRUCTIONS PRESCRIPTION INSTRUCTIONS: Please see the medication reconciliation list on this discharge summary for a current list of your medications. Stop the use of blood thinning medications until instructed otherwise by your surgical team. This includes medications known as antiplatelet, anticoagulant, and non-steroidal anti-inflammatory (NSAIDs)drugs. Common ycrf-aca-kakxhwu medications which should be avoided include Aspirin, ibuprofen, and naproxen among others. These medications are sometimes combined with other drugs or are sold under a trade name. Common prescription medications which should be avoided include Plavix (clopidogrel) and Coumadin (warfarin) among others. The following medications are commonly prescribed after surgery. An [x] indicates that these medications have been prescribed for you. [x] Opioids - Pain relief: Oxycodone 5mg every 4-6 hours Opioids are commonly prescribed after surgery for severe pain. DO NOT use alcohol, drive, or operateheavy machinery while taking these medications. These medications may cause constipation. [x] Stool softeners - Constipation relief: docusate or senakot Stool softeners are commonly used after surgery to help make stools easier to pass. These medications can be obtained pssi-waf-imolgzu and their use is recommended on an as needed basis for hard or difficult stools. They should be discontinued for loose stools and diarrhea. [x] Antispasmodics - Muscle Relaxants: Flexeril (cyclobenzaprine) as needed for muscle spasm/tightness Muscle relaxeants can help with the tension in the muscle in your neck or back. They may also make some people feel drowsy and unsteady on their feet. These medications should not be taken immediately prior to activity unless you know how they make you feel. DO NOT use alcohol, drive, or operate heavymachinery while taking these medications. WHEN TO SEEK MEDICAL CARE: Signs or symptoms of an infection: - Fever over 101F - Redness, swelling, or increasing pain around your incision - Drainage of pus, blood, or clear fluid from your incision New neurologic symptoms: - New sensory changes such as numbness, tingling, or altered sensation - New weakness, unsteadiness, difficulty walking, or difficulty using your hands - New pain that radiates down your spine or into one of you extremities - New bowel or bladder dysfunction such as incontinence or retention Constipation not relieved by diet and/or wcef-zml-tlnzdjh stool softeners and laxatives Nausea/vomiting (upset stomach) not controlled with anti-nausea medication Symptoms of a deep venous thrombosis (DVT) or pulmonary embolism (PE): - Swelling/warmth/redness of the leg - Pain in the leg, which can be worse with standing or walking - Chest pain or shortness of breath To help prevent a DVT: - Exercise regularly. Walking, at least several times daily, is helpful. - Ankle pump exercises (like pressing and releasing the gas pedal) should be done regularly. - Keep hydrated with water or other clear liquids (coffee/tea/cola can dehydrate you). - Avoid alcohol and crossing your legs. - Remember not to sit or lay in bed, while awake, for prolonged amounts of time. WOUND CARE: - Keep incisional site clean and dry. You can remove your dressing 2 days after surgery. - You may shower and shampoo incisional site, per your usual routine, 4 days after surgery. - Do not pick/scratch/itch your incision. Pat dry. - Do not submerge your incision underwater (do not bath in a tub or go swimming in any pools, [place], lakes, oceans) for a minimal of 4 weeks after the operation. - Please consider taking supplemental Vitamin C (500mg) for up to 3 months, Zinc (220mg) for 2-6 weeks, and Vitamin A (10,000units) for up to 5 days as these supplements may decrease your risk of infection and promote healing of your surgical wound. - Keep your incision out of the sun for at least 6 months. The new skin is at high risk of having malignant (cancerous) changes and UV sunlight also makes scars more pronounced. DIET: - You may resume your usual diet. - Make sure your stay well hydrate. - A well-balanced diet is recommended for wound healing. - Prune juice or prunes can be added to your diet to assist with any constipation. - If you do not have kidney diease, it is recommended that you consume extra protein to help your body heal. You may consider supplemental protein in the form of shakes, powders, or bars. - Consider foods high in calcium (ex. dairy products or dark, leafy greens) and vitamin D (ex. Seafood) if you have had a spinal fusion as these will help your bones heal. You should also consider taking supplemental calcium (citrate is better than carbonate) 1000mg and vitamin D3 600units daily. ACTIVITY: - You should avoid lifting more than 5 lbs. - Restrict strenuous activity (such as running, jumping, jogging, shoveling, etc.) until cleared by your surgical team - Avoid bending and twisting your spine. DRIVING: - Do not drive while taking narcotic pain medication. [x] You may return to driving 2 weeks after surgery. FOLLOW UP PLAN: Incision: Please follow up for staple removal approximately 2 weeks after the operation on 05/22/21 with your Primary Care Provider or with the Neurosurgery STONE LATHE OPERATOR/RN. Your hitesh may also be removed at rehab. Appointments: Please follow up in the Neurosurgery Clinic in 4-[address] Fountain. Please call the NeurosurgeryOffice at [phone] if you do not receive a scheduled appointment within two weeks. Follow-up Imaging: None HOW TO REACH NEUROSURGERY Office Hours: Friday through Friday, 8am-5pm. Call . On weekends or after office hours: Call [phone] and ask the panel flow machine operator to page the NeurosurgeryResident/Advanced Practice Provider applications programmer analyst. IMPORTANT PHONE NUMBERS: Outpatient Nurse (Robyn Cochran) Inpatient Nurses Neurosurgical Resident/Advanced Practice Provider On-Call (after 5pm or before 8am) Neurosurgery offices (Friday through Friday between 8am-5pm): Adult Neurosurgery Dr. Luigi Ernandez Pediatric Neurosurgery Dr. Hraika Nelson Advanced Practice Providers Elle Morgan, Nurse Practitioner (outpatient) Génesis Parekh, Physician Offset Printing Operator (inpatient) Abiola Saxena, Nurse Practitioner (inpatient) Sima Diaz, Physician Offset Printing Operator (inpatient) Sima Reddy, Physician Offset Printing Operator (inpatient) Brenda Davidson, Nurse Practitioner (outpatient: vascular) Daysi Jeffery, Physician Offset Printing Operator (outpatient: spine) Abhishek Mckinney, Nurse Practitioner (inpatient/outpatient) Cain Kelley, Physician Offset Printing Operator (outpatient) Fabiana Magaña, Nurse Practitioner (outpatient: neuro-oncology) documented in this encounter Medications at Time of Discharge Medication Sig Dispensed Refills Start Date End Date estradioL (ESTRACE) 0.5 TAKE 1 TABLET BY 0 2020 mg Tablet MOUTH ONCE DAILY glipiZIDE XL (Glucotrol 0 01/09/2021 XL) 2.5 mg Tablet Extended Rel 24 hr polyethylene glycoL Take 17 g by mouth 14 each 0 05/10/19 22 (Miralax) 17 gram Powder daily as needed. in Packet pantoprazole (PROTONIX) 0 10/31/2015 40 mg Tablet, Delayed Release (E.C.) atenolol (TENORMIN) 50 0 10/31/2015 mg Tablet lisinopril TAKE ONE TABLET BY 4 [...] 500 mg tablet mouth every 8 hours. docusate sodium (Colace) Take 1 capsule by 20 capsule 0 05/0105/20/2021 100 mg Capsule mouth 2 times daily as needed for Constipation for up to 10 days. cyclobenzaprine Take 1 tablet by 30 tablet 0 05/10/2021 (Flexeril) 10 mg Tablet mouth 3 times daily as needed for Muscle spasms. documented as of this encounter Progress Notes Albino Ortega, PT - 05/10/2021 3:43 PM EST Physical Therapy Note Treatment Number PT: 2 Patient profile:Yesi Estrella is a 71 y.o. right handed female admitted on 05/07/2021. Pt presented to the ED with increasing back pain and decreased mobility over a 3 week period with decreased sensation and function of LEs. She had an MRI scheduled for 05/08/21, but could not stand the pain and presented to the ED. MRI done and showed a large Right L5-S1 disc extrusion. She underwent 05/08/21 emergent L5-S1 discectomy. She has issues with pain and hypotension post op, but reported on 05/09/21 that she had some relief from the pain. She is being managed on . ?? PMHx includes: HTN, TIIDM, Afib on no anticoagulation, essential tremor (on no medications), and chronic back and leg pain (s/p L L3-5 hemilaminectomies w L3-[address] Lu 03/2004 and then L4-S1 R hemilaminectomies, R L4-[address] Douglass 08/2013). Interval History: per RN notes some pain over notes. Planning to d/c this afternoon. Home services set up, walker delivered. Social History: Home set-up: Lives with her in a one level home. is retired and will be home. Bathroom Set-up: tub shower and uses a plastic chair in the shower; has slider doors in shower, usesdoor frame to hold onto at times. Stairs: 2 with a Rail on 1 step to enter. Baseline Mobility: prior to 3 weeks ago was walking without a device, in the last 3 weeks mobility had gotten more difficult and was helping her move and stand and walk. She drives occ at baseline. She enjoys cross stitch and finn painting. Sleeps in a regular bed, but does have a recliner at home, sleeps on left side of bed at home. Equipment at home: uses a plastic chair in the shower, had a rolling walker 8 years ago, but thinks she gave it away Fall history: none ?? Precautions/Special Considerations: s/p Spine surgery- avoid strain; no specific precautions but avoid excessive bending, lifting or twisting. Decreased sensation RLE. Fall risk. Lines: lines d/c'd today Activity Orders: activity as tolerated Diet: Reg diet. Mobility and Positioning Recommendations: ?? Pt. To mobilize with rolling walker with supervision. ?? Contact guard for stairs. ?? educated on need for assistance. Subjective: I am going to sit in the back seat it is taller than the front seat of the car, statedby patient. Objective: Patient seen for physical therapy and demonstrated the following: Pain: Reports 4/10 back discomfort. Vital Signs: Heart Rate: (see RN flow sheets) BP: (see RN flowsheets) SpO2: (see RN flow sheets) O2 Device: None (Room air) ?? Pt getting in wheelchair preparing for d/c when PT arrived. ?? Verbally reviewed bed mobility, she reports will help her. ?? Sit<->stand with supervision from wheelchair, with help for leg rest management. ?? Ambulated 25 ft, and 15 ft with rolling walker with supervision. ?? Stairs: up and down 2, 6 inch, steps with a rail and hand hold assist with contact guard; aware of up with stronger leg. ?? This PT brought patient to [facility] in wheelchair to meet with . ?? Pt able to walk to car with walker with supervision. ?? Pt turned to sit in back passenger side seat, she needed min assist to get RLE into car and assist with seat belt. ?? educated on her status and need for assistance, and pt aware to have assistance with all mobility, and reviewed role of home PT services. ?? Pt left with in car for d/c, and they felt comfortable with her status. Assessment: Yesi Estrella was seen today for physical therapy treatment session for continuationof POC. Pt getting ready to d/c; reviewed stairs and safety with mobility with patient and then withher when she was brought to the [facility] for d/c. Pt needs a walker and one assist for all mobility at this time, assist with bed mobility, and assist with stairs. aware of her status, and pt and comfortable with d/c home today with home services set up. reports she looks much better than when she came to the hospital. Pt will definitely benefit from home PT services at home for continued safety and mobility progression. Discharge Recommendations: Based on the current findings, Anticipated Discharge Disposition (PT): home with home health, home with supervision (home with supportive and home services.) when medically ready for hospital discharge. Consult Recommendations: home PT being set up Equipment needs: Anticipated Equipment Needs at Discharge (PT): (rolling walker had been delivered) Physical Therapy Goals: To be achieved by 05/14/21:-(The BELOW GOALS remain ONGOING-and are to be continued with home PT) ?? 1. Pt. to demonstrate knowledge of safety limitations and precautions and will appropriately requestassistance for functional activities and to mobilize. 2. Pt. to demonstrate understanding of AROM and breathing exercises. 3. Pt. to perform bed mobility with supervision while avoiding spine strain 4. Pt. to perform Sit<->stand and Stand Pivot transfers with supervision using a front wheeledwalker. 5. Pt. to ambulate 100 feet with supervision using a front wheeled walker. 6. Pt. to ambulate up/down 2 step/stairs using one rail and one hand hold with CGA. 7. Family or caregiver to demonstrate understanding of therapeutic interventions to support the careof the patient. Plan: Therapy Frequency (PT): (d/c today with home services and family support; home PT recommended)for as outlined in initial evaluation. Time IN / OUT: 1536 to 1554 (flow sheet entered and note entered at 1543 due to d/c time) Total Minutes, Physical Therapy: 18 ; Billing Code: functional mobility ALBINO ORTEGA PT Pager:[phone] Physical Therapy Inpatient Rehabilitation Department Albino Ortega PT - 05/09/2021 3:34 PM EST Physical Therapy Evaluation Patient profile: Yesi Estrella is a 71 y.o. right handed female admitted on 05/07/2021. Pt presented to the ED with increasing back pain and decreased mobility over a 3 week period with decreased sensation and function of LEs. She had an MRI scheduled for 05/08/21, but could not stand the pain and presented to the ED. MRI done and showed a large Right L5-S1 disc extrusion. She underwent 05/08/21 emergent L5-S1 discectomy. She has issues with pain and hypotension post op, but reported on 05/09/21 that she had some relief from the pain. She is being managed on . PMHx includes: HTN, TIIDM, Afib on no anticoagulation, essential tremor (on no medications), and chronic back and leg pain (s/p L L3-5 hemilaminectomies w L3-[address] Lu 03/2004 and then L4-S1 R hemilaminectomies, R L4-[address] Douglass 08/2013). Patient with the following active problems: Past Medical History: Diagnosis Date ??? Angina pectoris ??? High blood pressure Active Non-Hospital Problems Diagnosis ??? Radiculopathy of lumbar region ??? S/P Revision Right L4-S1 decompression, Right L4-5 diskectomy - 09/14/13 ([facility]) ??? Atrial fibrillation with RVR ??? Thoracic or lumbosacral neuritis or radiculitis, unspecified ??? Chronic leg pain ??? Chronic low back pain ??? Right lumbar radiculopathy with L4-L5 HNP Past Surgical History: Procedure Laterality Date ??? CHOLECYSTECTOMY ??? HERNIA REPAIR ??? HYSTERECTOMY, TOTAL ABDOMINAL ??? LUMBAR LAMINECTOMY ? ? PRO DOMINIQUE FACETECTOMY&FORAMOT 1 VRT SGM EA ADDL SGM 09/14/2013 ADD'L INTERSPACES CX., THORACIC, LUMBAR performed by Tawanda Douglass MD at [facility] ??? PRO DOMINIQUE W/O FACETEC FORAMOT/[facility] 04/01 VRT SEG, LUMBAR Midline 05/08/2021 LAMINECTOMY LUMBAR, DECOMPRESSION, 1 OR 2 SEGMENTS (WRVU 16.43) performed by Nancy Fountain MD at [facility] ??? PRO MICROSURG TECHNIQUES, REQ OPER MICROSCOPE N/A 05/08/2021 MICROSCOPE USE (WRVU 3.46) performed by Nancy Fountain MD at [facility] ??? PRO REDO EXCIS LUMBAR DISC 09/14/2013 LAMINOTOMY W\DECOMPRESSION, ONE LVL, LUMBAR ,RE-EXPL (INCLDNG PART. FACETECTOMY, FORAMINOTOMY &\OR DISCECTOMY) performed by Tawanda Douglass MD at [facility] Social History: Home set-up: Lives with her in a one level home. is retired and will be home. Bathroom Set-up: tub shower and uses a plastic chair in the shower; has slider doors in shower, usesdoor frame to hold onto at times. Stairs: 2 with a Rail on 1 step to enter. Baseline Mobility: prior to 3 weeks ago was walking without a device, in the last 3 weeks mobility had gotten more difficult and was helping her move and stand and walk. She drives occ at baseline. She enjoys cross stitch and finn painting. Sleeps in a regular bed, but does have a recliner at home, sleeps on left side of bed at home. Equipment at home: uses a plastic chair in the shower, had a rolling walker 8 years ago, but thinks she gave it away Fall history: none Precautions/Special Considerations: s/p Spine surgery- avoid strain; no specific precautions but avoid excessive bending, lifting or twisting. Decreased sensation RLE. Fall risk. Lines: IV BUEs Activity Orders: activity as tolerated Diet: Reg diet. Mobility and Positioning Recommendations: ?? Pt. to utilize rolling walker and contact guard for ambulation and transfers with nursing. Followwith chair with walking longer distances, sat and rested 3x walking in hallway today. ?? Please encourage up to chair for meal times as able. ?? Pt encouraged to ambulate frequently with staff, getting into the bathroom for toileting and walking out in the sanchez >/= 3 times daily as able. Subjective: ???My is hurting from lifting on me, he was getting PT for his shoulder.?? Pretty good, regarding how she feels today. Objective: Pt seen for evaluation, education, and functional mobility training today. Pain: No report of pain at rest, occ twinge in back with mobility Vital Signs: Heart Rate: 61 (70 after walking; then 57 after resting end) BP: (85/53 and 115/53 supine, sitting 118/54) SpO2: 97 % (97% after walking) O2 Device: None (Room air) Mental Status: alert, oriented to person, place, and time Vision: glasses methods time analyst. Skin: back incision bandaged and dry, IVs BUEs. Musculoskeletal: ROM: AROM of BUEs and BLEs WFLs. Strength: able to move LEs against gravity, but RLE is weaker than left LLE- not tested. Sensation: decreased sensation to touch right lateral leg from mid thigh to foot; decreased sensation in most of right foot; LLE WFLs. Bed Mobility: Supine to Sit: to left side of bed via rolling with cues and min assist Sit to Supine: to left side of bed via sidelying and rolling to min assist for LEs. Transfers: Sit to Stand: from bed with cues for hand placement and contact guard to min assist; from std brown chair with contact guard and cues for hand placement Stand to Sit: with contact guard and cues Bed to chair: pivoted with contact guard with walker. Gait: Distance: 15 ft in room, and 50-60 ft x 4 with walker in hallway with seated rests Device used: rolling walker Level of assist: Contact guard and cues. Gait mechanics: step to gait, walker height adjusted; fatigued after walking 50- 60 ft. Stairs: not done, but educated on need to review stairs prior to d/c. Balance: Sitting Static: steady Standing Static: with contact guard with walker Standing Dynamic / Gait: With contact guard with walker Education: patient has been educated on Bed mobility, Transfers, Assistive device/technique, Stairs,Exercise, Breathing exercises, Positioning, Safety , Precautions/protocol, Equipment use, Gait , Activity pacing/Energy conservation, Home program, Role of therapy, Balance, Discharge planning and to call for assistance with all mobility and verbalizes understanding. Patient status, treatment, and mobility recommendations discussed with nursing. Ther-ex: reviewed deep breathing, and AROM ther-ex. Assessment: Yesi Estrella was seen today for physical therapy evaluation. Patient presenting with general deconditioning due to recent impaired mobility at home, occ back pain, decreased RLE sensation and strength, and needs min assist to contact guard with walker and cues for safety with mobilitytoday. She plans to return home with her when medically stable. Expect steady gains in her mobility and function. Will continue PT to safely progress patient's mobility and function while she remains in-house working toward a safe d/c plan. Discharge Recommendations: Based on the current findings, Anticipated Discharge Disposition (PT): home with home health, home with supervision when medically ready for hospital discharge. Consult Recommendations: home PT services Equipment needs: Anticipated Equipment Needs at Discharge (PT): (possibly a rolling walker) Goals: To be achieved by 05/14/21: 1. Pt. to demonstrate knowledge of safety limitations and precautions and will appropriately requestassistance for functional activities and to mobilize. 2. Pt. to demonstrate understanding of AROM and breathing exercises. 3. Pt. to perform bed mobility with supervision while avoiding spine strain 4. Pt. to perform Sit<->stand and Stand Pivot transfers with supervision using a front wheeledwalker. 5. Pt. to ambulate 100 feet with supervision using a front wheeled walker. 6. Pt. to ambulate up/down 2 step/stairs using one rail and one hand hold with CGA. 7. Family or caregiver to demonstrate understanding of therapeutic interventions to support the careof the patient. Plan: Therapy Frequency (PT): 2-4 times/wk for therapy including balance training, bed mobility training, gait training, home exercise program, motor coordination training, neuromuscular re-education, patient/family education, postural re-education, range of motion, stair training, strengthening, stret miroslava, transfer training and d/c planning, functional mobility training, self care and home management training. 2017 PT Evaluation Code Rationale: ?? Diagnosis & Pertinent Co-Morbidities, personal factors, and present illness affecting Plan ofCare: (see above); Additional personal factors or co- morbidities that impact plan: ?? Total # of Factors: 0 1-2 3+ x ?? Examination of body system impairments, functional limitations and behaviors, and/or participation restrictions. Addressing 1-2 elements Addressing 3 + elements x Addressing 4 + elements ?? Clinical presentation: See assessment above. Stable/Uncomplicated Evolving/Fluctuating Symptoms Unstable/Unpredictable x ?? Clinical decision making of moderate complexity based on pt's functional performance as outlined in this evaluation. Time IN / OUT:1435 to 1534 Total Minutes, Physical Therapy: 59 Billing Code: evaluation, functional mobility and education ALBINO ORTEGA, PT Pager: [phone] Physical Therapy Inpatient Rehabilitation Department Albino Ortega, PT - 05/09/2021 10:50 AM EST Physical Therapy Note PT referral received, chart reviewed, attempted to see patient this morning but she was fatigued after working with OT. Made plan to follow up later after her next pain medication dose. RN aware of pt's status. Albino Ortega, PT Beeper# [phone] Osmany Joy Ethan, OT - 05/09/2021 9:04 AM EST Occupational Therapy Evaluation Patient profile: Yesi Estrella is a 71 y.o. female admitted on 05/07/2021 with a PMHx significant for HTN, TIIDM, Afib on no anticoagulation, essential tremor (on no medications), and chronic back and leg pain (s/p L L3-5 hemilaminectomies w L3-[address] Lu 03/2004 and then L4-S1 R hem ilaminectomies, R L4-[address] Douglass 08/2013) who presents to the ED with R leg pain, numbness, and weakness.Now s/p R L5S1 discectomy for HNP HD# 2 POD # 1 Day Post-Op Past Medical History: Diagnosis Date ??? Angina pectoris ??? High blood pressure Past Surgical History: Procedure Laterality Date ??? CHOLECYSTECTOMY ??? HERNIA REPAIR ??? HYSTERECTOMY, TOTAL ABDOMINAL ??? LUMBAR LAMINECTOMY ? ? PRO DOMINIQUE FACETECTOMY&FORAMOT 1 VRT SGM EA ADDL SGM 09/14/2013 ADD'L INTERSPACES CX., THORACIC, LUMBAR performed by Tawanda Douglass MD at [facility] ??? PRO REDO EXCIS LUMBAR DISC 09/14/2013 LAMINOTOMY W\DECOMPRESSION, ONE LVL, LUMBAR ,RE-EXPL (INCLDNG PART. FACETECTOMY, FORAMINOTOMY &\OR DISCECTOMY) performed by Tawanda Douglass MD at [facility] Social History: Home Setup: Pt lives with her in a one level ranch with 2 EFREN, no railing. Tub shower with aseat but no bars present. Functional Status: Pt had been independent with all (I)ADLs until about 3 weeks ago when she began experieincing difficulty ambulating and increased pain and numbness in R LE. Since then pt's has been assisting with mobility and self-care tasks. Pt reports that she does still drive but not often, her usually does the driving. Has received home health services in the past. Equipment at home: shower seat Fall history: None reported Precautions/Special Considerations: fall risk, AAT, regular diet, PIV x 2 Subjective: I am already feeling a lot better than when I came in before the surgery Objective: Seen today for OT evaluation. ??? Vital Signs o HR: 60 at rest o SpO2: 98% on RA ar rest ??? Pain: 2/10 at rest, 6/10 with activity ??? Cognitive Status/Behavior o Behavior / Mood: alert and cooperative o Alert and oriented to: person, place, time and situation o Follows commands: 2 step, 100% of the time and requires increased timedue to pain o Attention: WFL o Safety awareness: WFL and good safety precautions, pt demonstrates increased awareness of numbnessin R LE during ambulation ? ? Vision & Perception o WNL/WFL o corrective lenses methods time analyst ?? Communication o WFL ??? Musculoskeletal o Hand dominance: right o ROM: WFL o Strength: grossly WFL o Sensation: Endorses numbness in R LE o Skin: Intact ??? Activities of Daily Living: o Self-feeding: Independent o Grooming: Set-up assist while sitting in recliner chair to brush teeth and wash face o Dressing: Supervision to don pants and socks sitting unsupported at EOB o Bathing: Supervision assist to wash partial LB sitting on commode o Toileting: CGA to transfer to bedside commode with FWW. CGA to complete hygiene while standing ??? Functional Mobility: o Supine to sit: Min A with HOB elevated o Sit to stand: CGA with cues for hand placement on bed and FWW o Ambulation: CGA to ambulate ~30 feet in sanchez with FWW for support, pt reported that R LE was numb but she was able to bear weight throughout ambulation o Stand to sit: CGA with cues for controlled sit to decrease pain o Sit to supine: Pt left sitting in recliner with all needs met, chair alarm and call osman in place ??? Balance o Sitting balance: good o Standing balance:good with UE support from FWW Education: patient have been educated on Role of occupational therapy/rehabilitation, Transfers, Assistive device/technique, ADL, Exercise, Breathing exercises, Positioning, Safety, Precautions/Protocol, Functional Mobility, Activity pacing/Energy conservation, Home Management, Recommendations and Discharge planning and verbalizes understanding. Patient status, treatment, and mobility recommendations discussed with nursing. Assessment: Pt has been seen for occupational therapy evaluation. Yesi Estrelal presents with the following performance skill deficits and client factors: increased pain, decreased activity tolerance, decreased flexibility/ROM, decreased strength, decreased sitting/standing balance, deconditioning, compromised mobility status and coping. These performance deficits have led to activity limitationsand participation restrictions in the following areas of occupation: dressing, bathing, grooming, toileting, transfers/mobility, home management, leisure, driving, community mobility and social participation. Pt alert and eager to participate in therapy this morning. Pt reported that she feels stronger and is in less pain than she has been for 3 weeks. Pt demonstrated ability to transfer to commode with CGA to perform all toileting tasks. Able to ambulate in the sanchez with CGA using FWW due to decreas ed feeling in R LE. Pt appears to be near her baseline functional status. Recommend discharge home with supervision and home health services. Pt would also benefit from a FWW before discharge. Pt wouldbenefit from further inpatient OT interventions to address performance deficits and maximize participation and independence with occupations of daily living. Equipment needs at discharge: FWW Anticipated Discharge Disposition (OT): home with supervision, home with home health Other Recommendations: ?? Transfer to recliner chair as appropriate with 1A with FWW, ambulate as tolerated ?? Encourage participation in ADL's by providing set up A on tray table and physical assist only as needed Other Recommendations: No other consults recommended at this time Goals: To be achieved by 05/19/21. Pt will be Mod I to complete 2 grooming tasks while standing at the sink Pt will complete functional transfers and mobility with Mod I for participation in ADLs using self-pacing as needed and LRAD Pt will complete toileting routine including transfer to the bathroom, clothing management, and hygiene with Mod I. Plan: OT: Therapy Frequency (OT): 1-2 more times Planned OT interventions: Role of occupational therapy/rehabilitation, Transfers, Assistive device/technique, ADL, Breathing exercises, Activity pacing/Energy conservation, Home Management, Recommendations and Discharge planning. Total Minutes, Occupational Therapy: 38 (09:04-09:42 Mod Eval) 2017 OT Evaluation Code Rationale: ?? Diagnosis & Pertinent Co-Morbidities affecting Plan of Care: see PMHx ?? Occupational Profile & Client History: Brief Expanded Extensive x ?? Assessment of Occupational Performance: 1-3 performance deficits 3-5 performance deficits 5 + performance deficits x ?? Clinical Decision Making: Low Moderate High x Clinical decision making of moderate complexity using standardized patient assessment instrument andmeasurable assessment of functional outcome. Joy Ceron OTR/L Pager [phone] Occupational Therapy Rehabilitation Department Masha Grayson MD - 05/09/2021 6:08 AM EST NEUROSURGERY PROGRESS NOTE ID: Yesi Estrella is a 71 y.o. female with a PMHx significant for HTN, TIIDM, Afib on no anticoagulation, essential tremor (on no medications), and chronic back and leg pain (s/p L L3-5 hemilaminectomies w L3-[address] Lu 03/2004 and then L4-S1 R hemilaminectomies, R L4-[address] Douglass 08/2013) who presents to the ED with R leg pain, numbness, and weakness. Now s/p R L5S1 discectomy for HNP HD# 2 POD # 1 Day Post-Op INTERVAL HX/ROS: -POD1 -Leg pain is totally gone, very happy -Strength improved -Able to ambulate to the washroom -Dressing clean and dry MEDICATIONS: Scheduled Meds: ??? sodium chloride 0.9 % (flush) 5 mL Intravenous BID ??? lidocaine 1 patch Transdermal Q24H And ??? lidocaine 1 patch Transdermal Q24H ??? senna-docusate 2 tablet Oral BID ??? methocarbamoL 500 mg Oral Q6H ??? docusate sodium 100 mg Oral BID ??? acetaminophen 650 mg Oral Q6H VIOLET ??? gabapentin 300 mg Oral TID ??? pantoprazole EC 40 mg Oral Daily ??? atenoloL 50 mg Oral Nightly ??? lisinopriL 10 mg Oral Nightly Continuous Infusions: ??? sodium chloride 0.9% infusion 100 mL/hr Intravenous Continuous ### PRN Meds: sodium chloride 0.9 % (flush), lidocaine, thrombin (bovine), gelatin adsorbable, lidocaine-EPINEPHrine, ketorolac, bisacodyL, magnesium hydroxide, polyethylene glycoL, magnesium citrate OR magnesium citrate, ondansetron OR ondansetron, cyclobenzaprine, labetaloL, oxyCODONE OR oxyCODONE EXAM: Vitals: Temp: [36.5 ??C (97.7 ??F)-36.9 ??C (98.4 ??F)] Heart Rate: [53-80] Resp: [8-18] BP: (98-140)/(51-79) SpO2: [91 %-97 %] Heart Rate from SpO2: [53 bpm-80 bpm] BMI: Weight: 65.7 kg (144 lb 12.8 oz) (05/07/219) BMI (Calculated): 24.96 BMI Classification: Normal Weight I/O: I/O last 3 completed shifts: In: 1760 [P.O.:360; I.V.:1400] Out: 1645 [Urine:1610; Blood:35] GEN: NAD, resting awake in bed reading. Pleasant, conversant NEURO: AO4 MOTOR: RUE: 5/5 LUE: 5/5 RLE: HF/KE/KF/DF/EHL /; PF 2/5 Numbness down the posterolateral leg into the bottom/side of the foot. Persistent numbness on top ofR foot Dressing dry, no strikethrough LABS: Recent Labs 05/08/21 0644 05/07/21 1650 WBC 7.5 9.1 HGB 13.3 14.6 PLATELET 191 230 Recent Labs 05/08/21 0644 05/07/21 1650 NA 134* 139 K 3.8 4.4 CL 101 103 CO2 26 26 BUN 14 15 CREATININE 0.84 0.84 No results for input(s): PT, INR in the last 72 hours. IMAGING: IMPRESSION 1. ??New right posterior paracentral L5-S1 disc extrusion with impingement of the right S1 nerve root. ?? 2. ??Interval worsening of facet arthropathy at L4-5 and L5-S1 with marked bilateral subarticular recess narrowing at L4-5 and bilateral neural foramen narrowing at L5-S1 ?? Imaging independently reviewed. Assessment: Yesi Estrella is a 71 y.o. right-handed female with a PMHx significant for HTN, TIIDM, Afib on no anticoagulation, essential tremor (on no medications), and chronic back and leg pain (s/p L L3-5 hemilaminectomies w L3-[address] Lu 03/2004 and then L4-S1 R hemilaminectomies, R L4-[address] Douglass 08/2013) who presents to the ED with R leg pain, numbness, and weakness found to have a R L5-S1 disc herniation. Now s/p R L5S1 discectomy. Problem List: HNP Plan: - Q4HNC - Pain control - Imaging: complete - Mobilize/PT/OT - DVT ppx: SCDs, hold anticoagulation/antiplatelet - Carb control diet PLEASE PAGE [phone] WITH QUESTIONS Active Hospital Problems Diagnosis ??? Back pain Resolved Hospital Problems No resolved problems to display. Active Non-Hospital Problems Diagnosis ??? Radiculopathy of lumbar region ??? S/P Revision Right L4-S1 decompression, Right L4-5 diskectomy - 09/14/13 ([facility]) ??? Atrial fibrillation with RVR ??? Thoracic or lumbosacral neuritis or radiculitis, unspecified ??? Chronic leg pain ??? Chronic low back pain ??? Right lumbar radiculopathy with L4-L5 HNP Masha Grayson MD 05/09/2021 Elle Hackett RN - 05/08/2021 1:10 PM EST 1300 : Break coverage done, patient complaining of back pain 01/07, medicated with hydromorphone iv,vs's Luis Fernando Luz MD - 05/08/2021 12:56 PM EST NEUROSURGERY PROGRESS NOTE ID: Yesi Estrella is a 71 y.o. female with a PMHx significant for HTN, TIIDM, Afib on no anticoagulation, essential tremor (on no medications), and chronic back and leg pain (s/p L L3-5 hemilaminectomies w L3-[address] Lu 03/2004 and then L4-S1 R hemilaminectomies, R L4-[address] Douglass 08/2013) who presents to the ED with R leg pain, numbness, and weakness. Now s/p R L5S1 discectomy for HNP HD# 1 POD # Day of Surgery INTERVAL HX/ROS: POC MEDICATIONS: Scheduled Meds: ??? [MAY Hold] lidocaine 1 patch Transdermal Q24H And ??? [MAY Hold] lidocaine 1 patch Transdermal Q24H ??? [MAY Hold] senna-docusate 2 tablet Oral BID ??? methocarbamoL 500 mg Oral Q6H ??? [MAY Hold] docusate sodium 100 mg Oral BID ??? [MAY Hold] acetaminophen 650 mg Oral Q6H VIOLET ??? [MAY Hold] gabapentin 300 mg Oral TID ??? [MAY Hold] pantoprazole EC 40 mg Oral Daily ??? [MAY Hold] atenoloL 50 mg Oral Nightly ??? [MAY Hold] lisinopriL 10 mg Oral Nightly Continuous Infusions: ??? sodium chloride 0.9% infusion 100 mL/hr Intravenous Continuous ### PRN Meds: thrombin (bovine), gelatin adsorbable, lidocaine-EPINEPHrine, naloxone, HYDROmorphone OR HYDROmorphone, ketorolac, [MAY Hold] bisacodyL, [MAY Hold] magnesium hydroxide, [MAY Hold] polyethylene glycoL, [MAY Hold] magnesium citrate OR [MAY Hold] magnesium citrate, [MAY Hold] ondansetron OR [MAY Hold] ondansetron, cyclobenzaprine, [MAY Hold] labetaloL, oxyCODONE OR oxyCODONE EXAM: Vitals: Temp: [36.6 ??C (97.9 ??F)-36.9 ??C (98.4 ??F)] Heart Rate: [51-80] Resp: [13-18] BP: (115-194)/(65-95) SpO2: [93 %-97 %] Heart Rate from SpO2: [47 bpm-80 bpm] BMI: Weight: 65.7 kg (144 lb 12.8 oz) (05/07/219) BMI (Calculated): 24.96 BMI Classification: Normal Weight I/O: I/O last 3 completed shifts: In: 120 [P.O.:120] Out: 650 [Urine:650] GEN:NAD NEURO:Drowsy, waking up from anesthesia MAEx4 proximally and distally Dressings dry LABS: Recent Labs 05/08/21 0644 05/07/21 1650 WBC 7.5 9.1 HGB 13.3 14.6 PLATELET 191 230 Recent Labs 05/08/21 0644 05/07/21 1650 NA 134* 139 K 3.8 4.4 CL 101 103 CO2 26 26 BUN 14 15 CREATININE 0.84 0.84 No results for input(s): PT, INR in the last 72 hours. IMAGING: IMPRESSION 1. ??New right posterior paracentral L5-S1 disc extrusion with impingement of the right S1 nerve root. ?? 2. ??Interval worsening of facet arthropathy at L4-5 and L5-S1 with marked bilateral subarticular recess narrowing at L4-5 and bilateral neural foramen narrowing at L5-S1 ?? Imaging independently reviewed. Assessment: Yesi Estrella is a 71 y.o. right-handed female with a PMHx significant for HTN, TIIDM, Afib on no anticoagulation, essential tremor (on no medications), and chronic back and leg pain (s/p L L3-5 hemilaminectomies w L3-[address] Lu 03/2004 and then L4-S1 R hemilaminectomies, R L4-[address] Douglass 08/2013) who presents to the ED with R leg pain, numbness, and weakness found to have a R L5-S1 disc herniation. Now s/p R L5S1 disectomy Problem List: HNP Plan: - Q4HNC - Pain control - Imaging: complete - DVT ppx: SCDs, Hold anticoagulation/antiplatelet - ADAT PLEASE PAGE [phone] WITH QUESTIONS Active Hospital Problems Diagnosis ??? Back pain Resolved Hospital Problems No resolved problems to display. Active Non-Hospital Problems Diagnosis ??? Radiculopathy of lumbar region ??? S/P Revision Right L4-S1 decompression, Right L4-5 diskectomy - 09/14/13 ([facility]) ??? Atrial fibrillation with RVR ??? Thoracic or lumbosacral neuritis or radiculitis, unspecified ??? Chronic leg pain ??? Chronic low back pain ??? Right lumbar radiculopathy with L4-L5 HNP Luis Fernando Luz MD 05/08/2021 Gabriela Mena RN - 05/08/2021 12:20 PM EST Pt to PACU via bed from OR; monitors applied, alarms set and audible. Spinal dressing CDI. Pain treated with available medications. Pt denies nausea at this time. Pt able to move all four extremities to command. Pt reports she continues to have numbness in her RLE. Bilat DP and PT pulses palpable. Per anesthesia pt had a Lacy catheter during surgery that was removed at the end; pt DTV at 1620. Pt tolerating sips of water. Report given to RAFA Graff. Albino Ortega PT - 05/08/2021 11:10 AM EST Physical Therapy Note PT referral received, pt in the OR at this time. Please update activity orders post procedure as appropriate. Thanks. Albino Ortega, PT Beeper# [phone] Joy Newman OT - 05/08/2021 9:06 AM EST Occupational Therapy Note Document Type: contact Total Minutes, Occupational Therapy: 0 Reason: 05/08/21902 Evaluation & Treatment Document Type contact Total Minutes, Occupational Therapy 0 Comment, Session Not Performed Attempted to see pt for OT evaluation. However, pt was leaving for OR. Will follow-up and complete OT evaluation when appropriate. Pager: [phone] Joy Ceron OTR/L 05/08/2021 Occupational Therapy Rehabilitation Department Luis Fernando Luz MD - 05/08/2021 7:53 AM EST NEUROSURGERY PROGRESS NOTE ID: Yesi Estrella is a 71 y.o. female with a PMHx significant for HTN, TIIDM, Afib on no anticoagulation, essential tremor (on no medications), and chronic back and leg pain (s/p L L3-5 hemilaminectomies w L3-[address] Lu 03/2004 and then L4-S1 R hemilaminectomies, R L4-[address] Douglass 08/2013) who presents to the ED with R leg pain, numbness, and weakness HD# 1 POD # INTERVAL HX/ROS: NPO for OR today Neuro stable MEDICATIONS: Scheduled Meds: ??? lidocaine 1 patch Transdermal Q24H And ??? lidocaine 1 patch Transdermal Q24H ??? senna-docusate 2 tablet Oral BID ??? methocarbamoL 500 mg Oral Q6H ??? docusate sodium 100 mg Oral BID ??? acetaminophen 650 mg Oral Q6H VIOLET ??? gabapentin 300 mg Oral TID ??? pantoprazole EC 40 mg Oral Daily ??? atenoloL 50 mg Oral Nightly ??? lisinopriL 10 mg Oral Nightly Continuous Infusions: ??? sodium chloride 0.9% infusion 100 mL/hr Intravenous Continuous ### PRN Meds: ketorolac, bisacodyL, magnesium hydroxide, polyethylene glycoL, magnesium citrate OR magnesium citrate, ondansetron OR ondansetron, cyclobenzaprine, labetaloL, oxyCODONE OR oxyCODONE EXAM: Vitals: Temp: [36.6 ??C (97.9 ??F)-36.9 ??C (98.4 ??F)] Heart Rate: [51-61] Resp: [16-18] BP: (115-194)/(68-116) SpO2: [93 %-97 %] Heart Rate from SpO2: [47 bpm-58 bpm] BMI: Weight: 65.7 kg (144 lb 12.8 oz) (05/07/219) BMI (Calculated): 24.96 BMI Classification: Normal Weight I/O: I/O last 3 completed shifts: In: 120 [P.O.:120] Out: 650 [Urine:650] GEN:NAD NEURO:AA+Ox3 Speech fluent and appropriate. MOTOR: RUE:08/02 LUE:08/02 RLE: HF 2, KE 3, DF/EHL 4, PF3 (Pain limited) LLE: 08/02 No pronator drift Diminished sensation in RLE laterally, o/w LT sensation intact x 4 LABS: Recent Labs 05/08/21 0644 05/07/21 1650 WBC 7.5 9.1 HGB 13.3 14.6 PLATELET 191 230 Recent Labs 05/08/21 0644 05/07/21 1650 NA 134* 139 K 3.8 4.4 CL 101 103 CO2 26 26 BUN 14 15 CREATININE 0.84 0.84 No results for input(s): PT, INR in the last 72 hours. IMAGING: IMPRESSION 1. ??New right posterior paracentral L5-S1 disc extrusion with impingement of the right S1 nerve root. ?? 2. ??Interval worsening of facet arthropathy at L4-5 and L5-S1 with marked bilateral subarticular recess narrowing at L4-5 and bilateral neural foramen narrowing at L5-S1 ?? Imaging independently reviewed. Assessment: Yesi Estrella is a 71 y.o. right-handed female with a PMHx significant for HTN, TIIDM, Afib on no anticoagulation, essential tremor (on no medications), and chronic back and leg pain (s/p L L3-5 hemilaminectomies w L3-[address] Lu 03/2004 and then L4-S1 R hemilaminectomies, R L4-[address] Douglass 08/2013) who presents to the ED with R leg pain, numbness, and weakness found to have a R L5-S1 disc herniation. Problem List: HNP Plan: - Q4HNC - Pain control - Imaging: complete - DVT ppx: SCDs, Hold anticoagulation/antiplatelet - Current Diet: NPO diet (Give Meds) - OR today PLEASE PAGE [phone] WITH QUESTIONS Active Hospital Problems Diagnosis ??? Back pain Resolved Hospital Problems No resolved problems to display. Active Non-Hospital Problems Diagnosis ??? Radiculopathy of lumbar region ??? S/P Revision Right L4-S1 decompression, Right L4-5 diskectomy - 09/14/13 ([facility]) ??? Atrial fibrillation with RVR ??? Thoracic or lumbosacral neuritis or radiculitis, unspecified ??? Chronic leg pain ??? Chronic low back pain ??? Right lumbar radiculopathy with L4-L5 HNP Luis Fernando Luz MD 05/08/2021 Can Dwyer, RN - 05/08/2021 1:50 AM EST OUTCOME EVALUATION NOTE: OUTCOME SUMMARY: Pt A/ox4. Arrived to [facility] this evening. VSS on RA. NPO at midnight for planned surgery, MIVF started. Using bedside commode, good uop. Pain controlled with scheduled and PRN medications. Call light within reach. Bed alarm in place. Pt ringing appropriately. PLAN MOVING FORWARD: Pain control Mobilize Surgery 05/08/21 D/c planning INDIVIDUALIZED FALL PREVENTION: Patient is currently a High risk to Fall. Patient educated on bed/chair alarm, demonstrates proper use of call osman and verbalizes understanding of fall preventions implemented. Patient-specific fall risk factors per assessment: [current deficits]: Weakness, Pain, Medications, Hospital Environment. Assistance [level of assistance required for transfers and ambulation]: 1x assist Supervision [direct monitoring required during toileting and ADLs]: Hands on with ADL's Surveillance [continuous indirect monitoring]: Masimo, Purposeful Rounding, Nurse Knowledge Exchange Patient-specific fall prevention interventions for sensory deficits provided, if applicable: CPG GOAL OUTCOME EVALUATION: documented in this encounter H&P Notes Masha Grayson MD - 05/07/2021 5:31 PM EST [facility] NEUROSURGERY H&P Date: 05/07/2021 ID: Yesi Estrella, 71 y.o. female : 1950 Admission Date: 05/07/2021 PCP: Patricio Gabriel MD Consult information: Date & Time: 05/07/2021 5:32 PM Referring Service: Emergency Medicine Neurosurgery Attending: Nancy Fountain MD Place of Consult: [facility] CC/Reason for consult: R leg pain, numbness, weakness found to have new disc herniation History of Present Illness: Yesi Estrella is a 71 y.o. right-handed female with a PMHx significant for HTN, TIIDM, Afib on no anticoagulation, essential tremor (on no medications), and chronic back and leg pain (s/p L L3-5 hemilaminectomies w L3-[address] Lu 03/2004 and then L4-S1 R hemilaminectomies, R L4-[address] Douglass 08/2013) who presents to the ED with R leg pain, numbness, and weakness. Yesi is accompanied by her today. Over the last 3-4 weeks she has been dealing with pain inher R buttock with radiation into the side and back of the leg. She has always had numbness in the front of her ruth and on the top of her right foot, but now it seems like the numbness is going up higher and including more of her foot. She hasn't been able to walk without hanging on to her she thinks due to pain and not being able to feel the floor well. She denies having any left sided symptoms or bowel/bladder changes. Yesi has been working with her PCP to find a helpful medication for pain control, without much success. A referral to the Pain [facility] was sent and she was due for an outpa tient MRI tomorrow, but chose to come today because, she just couldn't take it any more. Past Medical History: Past Medical History: Diagnosis Date ??? Angina pectoris ??? High blood pressure Patient Active Problem List Diagnosis Code ??? Chronic leg pain M79.606, G89.29 ??? Chronic low back pain M54.50, G89.29 ??? Right lumbar radiculopathy with L4-L5 HNP M54.16 ??? Thoracic or lumbosacral neuritis or radiculitis, unspecified [id number] ??? S/P Revision Right L4-S1 decompression, Right L4-5 diskectomy - 09/14/13 ([facility]) Z98.890 ??? Atrial fibrillation with RVR I48.91 ??? Radiculopathy of lumbar region M54.16 ??? Back pain M54.9 Past Surgical History: Past Surgical History: Procedure Laterality Date ??? CHOLECYSTECTOMY ??? HERNIA REPAIR ??? HYSTERECTOMY, TOTAL ABDOMINAL ??? LUMBAR LAMINECTOMY ??? PRO LAMINEC/FACETECT/FORAMIN, EACH ADDNL 09/14/2013 ADD'L INTERSPACES CX., THORACIC, LUMBAR performed by Tawanda Douglass MD at [facility] OR ??? PRO REDO EXCIS LUMBAR DISC 09/14/2013 LAMINOTOMY W\DECOMPRESSION, ONE LVL, LUMBAR ,RE-EXPL (INCLDNG PART. FACETECTOMY, FORAMINOTOMY &\OR DISCECTOMY) performed by Tawanda Douglass MD at [facility] OR Medications: No current facility-administered medications on file prior to encounter. Current Outpatient Medications on File Prior to Encounter Medication Sig Dispense Refill ??? pantoprazole (PROTONIX) 40 mg Tablet, Delayed Release (E.C.) ??? atenolol (TENORMIN) 50 mg Tablet ??? estradiol (CLIMARA) 0.075 mg/24 hr Patch Weekly APPLY 1 PATCH WEEKLY 12 ??? lisinopril (PRINIVIL;ZESTRIL) 20 mg Tablet TAKE ONE TABLET BY MOUTH EVERY DAY NEEDS ANNUAL EXAM 4 ??? traMADol (ULTRAM) 50 mg Tablet TAKE ONE TABLET BY MOUTH THREE TIMES A DAY NEEDED 5 ??? gabapentin (NEURONTIN) 300 mg capsule Take 1 capsule by mouth 3 times daily. Begin with 1 cap atHS X 3 days, then 1 cap Q AM and HS X 3 day, then 1 cap TID. 90 capsule 1 ??? acetaminophen (TYLENOL) 500 mg tablet Take 2 tablets by mouth every 8 hours. 30 tablet 1 ??? CIS Free Text Med - HORMONE REPLACEMENT THERAPY Scheduled Meds: ??? lidocaine 1 patch Transdermal Q24H And ??? lidocaine 1 patch Transdermal Q24H ??? senna-docusate 2 tablet Oral BID ??? methocarbamoL 500 mg Oral Q6H ??? docusate sodium 100 mg Oral BID ??? acetaminophen 650 mg Oral Q6H VIOLET Continuous Infusions: ??? [START ON 05/08/2021] sodium chloride 0.9% PRN Meds: ketorolac, bisacodyL, magnesium hydroxide, polyethylene glycoL, magnesium citrate OR magnesium citrate, ondansetron OR ondansetron, cyclobenzaprine, labetaloL, oxyCODONE OR oxyCODONE Allergies: Allergies Allergen Reactions ??? Meperidine Hcl Anaphylaxis ??? Prochlorperazine CIS - JITTERY Social History: Social History Socioeconomic History ??? Marital status: Spouse name: Not on file ??? Number of children: Not on file ??? Years of education: Not on file ??? Highest education level: Not on file Occupational History ??? Not on file Tobacco Use ??? Smoking status: Former Smoker Packs/day: 0.25 Quit date: 05/29/2013 Years since quittin.9 ??? Smokeless tobacco: Never Used Substance and Sexual Activity ??? Alcohol use: Not on file ??? Drug use: Not on file ??? Sexual activity: Not on file Other Topics Concern ??? Not on file Social History Narrative ??? Not on file Social Determinants of Health Financial Resource Strain: Not on file Food Insecurity: Not on file Transportation Needs: Not on file Physical Activity: Not on file Housing Stability: Not on file Family History: No family history on file. Review of Systems: Please see HPI for pertinent details. Vital Signs: Visit Vitals BP (!) 130/95 Pulse 61 Temp 36.7 ??C (98.1 ??F) (Temporal) Resp 18 Ht 165.1 cm (5' 5) Wt 68 kg (150 lb) SpO2 96% BMI 24.96 kg/m?? Physical Exam: General: Pleasant elderly female resting awake, lying on left side with R leg flexed over the left. at the bedside. HEENT: Atraumatic, normocephalic. Neck supple, trachea midline. Cardiovascular: HDS. Respiratory: Normal inspiratory effort on RA. Abdomen: Soft, non-tender, non-distended. Spine: No midline tenderness. No step-offs. Well healed single midline incision over the lumbar spine. Extremities: WWP, peripheral pulses are 2+ and equal bilaterally in upper and lower extremities. Neurological: Mental Status/Cognitive: GCS 15 (Motor 6 - Follows commands; Verbal 5 - Fluent; Eyes 4 - Eyes open spontaneously) Awake, alert, oriented x 4. Speech: Fluent, appropriate. Naming and repetition intact. Cranial Nerves: PERRL CN II: Visual acuity and jama grossly intact. CN III, IV, : EOMI. CN V: Sensation intact in V1, 2 and 3 distributions. CN VII: No facial asymmetry/droop. CN VIII: Intact hearing bilaterally to voice. CN IX, X: Palate and uvula rise in the midline. CN XI: Trapezius strength 5/5 bilaterally. CN XII: Tongue protrudes in the midline direction. Spine: Tone: Normal/appropriate, symmetric. Motor: No upper extremity drift. *Pain limited on exam. Segment Muscle Action Right Left C5 Deltoid Shoulder Abduction 5 5 C6 Biceps Elbow flexion 5 5 C6 Extensor carpi radialis Wrist extension 5 5 C7 Triceps Elbow extension 5 5 C8 Finger flexors Grasp 5 5 T1 Interossei Finger abduction 5 5 L2 Iliopsoas Hip flexion 5 4+* L3 Quadriceps Knee extension 5 5 L4 Tibialis anterior Dorsiflexion 5 4-* L5 Extensor hallucis longus Great toe extension 5 4- S1 Gastrocnemius Plantar flexion 5 0 Reflexes: Reflex Right Left Biceps 2+ 2+ Triceps 2+ 2+ BR 2+ 2+ Patellar 1+ 1+ Ankle Jerk 0 1+ Plantar response Downgoing Downgoing Navarro's: None Clonus: None Rectal exam / External Anal Sphincter: Deferred per patient's request. Sensation: Intact in upper extremities and trunk. Segment Location Right Left L1 Upper inner thigh Full Full L2 Mid-ant thigh Full Full L3 Med femoral condyle Full Full L4 Medial malleolus Full Full L5 Dorsum foot, 3rd MT Diminished Full S1 Lat heel Diminished Full S2 Popliteal fossa Full Full Cerebellar: Chin and upper extremity tremor with action. No dysmetria. Labs: Recent Labs 05/07/21 1650 WBC 9.1 HGB 14.6 PLATELET 230 No results for input(s): NA, K, CL, CO2, BUN, CREATININE, GLUCOSE in the last 72 hours. No results for input(s): PT, INR in the last 72 hours. No results for input(s): AST, ALT, BILITOT, ALKPHOS, ALB, PROT, LIPASE, AMYLASE in the last 72 hours. Imaging: IMPRESSION 1. New right posterior paracentral L5-S1 disc extrusion with impingement of the right S1 nerve root. ?? 2. Interval worsening of facet arthropathy at L4-5 and L5-S1 with marked bilateral subarticular recess narrowing at L4-5 and bilateral neural foramen narrowing at L5-S1 Imaging independently reviewed. Assessment: Yesi Estrella is a 71 y.o. right-handed female with a PMHx significant for HTN, TIIDM, Afib on no anticoagulation, essential tremor (on no medications), and chronic back and leg pain (s/p L L3-5 hemilaminectomies w L3-[address] Lu 03/2004 and then L4-S1 R hemilaminectomies, R L4-[address] Douglass 08/2013) who presents to the ED with R leg pain, numbness, and weakness found to have a R L5-S1 disc herniation. ~1month of current symptoms, unable to ambulate due to pain and foot weakness. Will admit for pain control and surgery tomorrow. Discussed uncertainty regarding neurological recovery given chronicity of symptoms, but hopeful for improvement in pain and the opportunity for return of strength and sensation. Plan/Recommendations: -Admit to NSGY, floor level of care -Regular diet now, NPO/mIVFs at midnight -CBC, BMP, CXR, ECG, T&S, coags pending OR tmrw -Activity as tolerated -Pain control -DVT PPx w SCDs, hold chemoppx -Con't home meds -Consented Today's plan of care was discussed with attending neurosurgeon, Dr. Nancy Fountain MD. Masha Grayson MD 05/07/2021 5:32 PM [facility] Neurosurgery Inpatient Pager: [phone] Personal Pager: [phone] Active Hospital Problems Diagnosis ??? Back pain Resolved Hospital Problems No resolved problems to display. Active Non-Hospital Problems Diagnosis ??? Radiculopathy of lumbar region ??? S/P Revision Right L4-S1 decompression, Right L4-5 diskectomy - 09/14/13 ([place]) ??? Atrial fibrillation with RVR ??? Thoracic or lumbosacral neuritis or radiculitis, unspecified ??? Chronic leg pain ??? Chronic low back pain ??? Right lumbar radiculopathy with L4-L5 HNP Associated attestation - Nancy Fountain MD - 05/08/2021 2:09 PM EST I have seen and examined the patient, providing epperson components as outlined below. I have reviewed the resident???s above note; my evaluation of the patient is below: 71-year-old woman who presents with 2 weeks of excruciating right lower extremity pain and back pain, as well as associated numbness in the lateral dorsal foot as well as weakness with dorsi and plantar flexion. She was found on MRI imaging to have a large right L5-S1 disc extrusion impinging on the right S1 root. Given her significant weakness, I think it is reasonable to proceed with urgent decompression and discectomy at the right L5-S1 foramen. We discussed risks, benefits, and alternatives to surgery, and she was agreeable to proceed. We will admit her tonight for pain control, and plan to addher to the operating room schedule for tomorrow morning documented in this encounter ED Notes Luigi Stovall RN - 05/07/2021 1:25 PM EST Pt to MRI. Jin Diaz PA - 05/07/2021 11:37 AM EST ED Provider Note HPI: Yesi Estrella is a 71 y.o. female with history of a prior L3-L4 and left L4- L5 decompression in 2004 and a L4-S1 hemilaminectomy with discectomy at L4-L5 in 2013 who presents to the Emergency Department with 3 weeks of increasing right- sided back pain that goes into her leg. She denies any trauma to her back. Says she woke up 3 weeks ago and has essentially not been able to walk more than a couple of steps. She needs full support from her to get out of bed and to walk. Denies any urinaryretention, saddle paresthesia, or loss control of her bowels. She has been seeing her primary care provider and has tried Vicodin, Dilaudid, steroids, Tylenol, and ibuprofen without any relief in her symptoms. She came in today because she was scheduled for an MRI tomorrow however does not feel that she can make it to her MRI due to her limited mobility and increasing pain. Review of Systems Pertinent positives and negatives are included in the HPI, otherwise at least ten systems were reviewed and negative. Past Medical and Surgical Histories, Social History, Medications, Allergies were reviewed in the chart. Vitals: ED Triage Vitals [05/07/21 1056] BP: (!) 150/116 Heart Rate: 61 Resp: 18 Temp: 36.7 ??C (98.1 ??F) Temp src: Temporal SpO2: 97 % O2 Device: RA O2 Flow Rate (L/min): n/a Physical Exam Constitutional: Appearance: She is well-developed and well-nourished. HENT: Head: Normocephalic. Eyes: Pupils: Pupils are equal, round, and reactive to light. Cardiovascular: Rate and Rhythm: Normal rate and regular rhythm. Pulmonary: Effort: Pulmonary effort is normal. Breath sounds: Normal breath sounds. Abdominal: General: Bowel sounds are normal. Palpations: Abdomen is soft. Musculoskeletal: General: No edema. Cervical back: Neck supple. Comments: Tenderness around right lumbar paraspinous muscles. No Bony L spine tenderness. Full ROM of the right hip. Positive right straight leg raise. Skin: General: Skin is warm and dry. Neurological: Mental Status: She is alert and oriented to person, place, and time. Sensory: Sensory deficit present. Gait: Gait abnormal. Comments: 2+ reflexes in the lower extremities (patellar and achilles) RLE sensation diminished below the knee. RLE exam limited by pain. Psychiatric: Mood and Affect: Mood normal. MRI Lumbar Spine wo Contrast (Generic) (Results Pending) Procedures Assessment and Plan: 71 y.o. female with history of chronic back pain and 2 prior lumbar spinal surgeries presents to theemergency department with 3 weeks of worsening right- sided back pain that radiates down her right leg. She reports that she has no sensation in the lower part of her leg. She denies any trauma to her back. She has no loss control of her bowels or bladder. Denies any numbness inside her upper inner thighs. On exam she is very uncomfortable and has a hard time moving around due to pain. She does have right lower extremity weakness likely secondary to pain and cannot ambulate due to pain. She has been getting around the house with the aid of her . MRI shows acute on chronic changes in her Lumbar spine. Neurosurgery was consulted due to the amountof pain she is in and her limited mobility they will admit her for surgery and ongoing pain management. She has tried several different pain regimes without much relief. The visit findings, diagnosis, and care plan were discussed with the patient. Jin Diaz PA 05/08/21601 documented in this encounter Miscellaneous Notes Plan of Care - Nicci Bassett RN - 05/09/2021 11:31 PM EST OUTCOME EVALUATION NOTE: OUTCOME SUMMARY: Alert and oriented x4 VSS on RA Lumbar dressing C, D, I Physical assessment as documented. Scheduled meds given per MAY. PLAN MOVING FORWARD: Possible discharge today Pain management PT/OT INDIVIDUALIZED FALL PREVENTION INTERVENTIONS: Patient-specific fall risk factors per assessment: [current deficits]: generalized weakness, hospital environment Assistance [level of assistance required for transfers and ambulation]: standby assist Supervision [direct monitoring required during toileting and ADLs]: hands on Surveillance [continuous indirect monitoring]: Call osman within reach, bed alarm on, room near nurses station, masimo on, hourly rounding utilized. Patient-specific fall prevention interventions for sensory deficits provided, if applicable: [X] Yes CPG GOAL OUTCOME EVALUATION: Plan of Care - Yulissa Elkins RN - 05/09/2021 6:05 PM EST OUTCOME EVALUATION NOTE: OUTCOME SUMMARY: Pt is A+Ox4. C/o mild to moderate back pain throughout shift, prn oxycodone given x2, w/ good effect. All meds given per orders, see MAR. Pt worked w/ PT/OT today, see note. Q4 neuro checks unchanged, see flowsheets. Pt resting in bed, safety maintained. PLAN MOVING FORWARD: PT/OT, pain management, Dc planning INDIVIDUALIZED FALL PREVENTION INTERVENTIONS: Patient-specific fall risk factors per assessment: [current deficits]: generalized weakness, PIV, secondary diagnosis, impaired RLE Assistance [level of assistance required for transfers and ambulation]: 1A w/ walker Supervision [direct monitoring required during toileting and ADLs]: hands on, eyes on Surveillance [continuous indirect monitoring]: masimo, bed alarm, purposeful rounding Patient-specific fall prevention interventions for sensory deficits provided, if applicable: [X] N/A CPG GOAL OUTCOME EVALUATION: Initial Assessments - Mecca Nixon RN - 05/09/2021 9:57 AM EST Office of Care Management Initial Assessment Mecca Nixon RN reviewed record and discussed patient with Care Team. Source of Information: Team, bedside nurse, medical record, and Patient RN CM Introduced self/reviewed role; services accepted. Reason for Hospitalization: Rt leg pain, weakness, numbness Covid Vaccination Status: 1st, 2nd & booster Last COVID test: Lab Results Component Value Date [id number] Not Detected 05/07/2021 Past medical History: Past Medical History: Diagnosis Date ??? Angina pectoris ??? High blood pressure Hospitalizations Within the Past 30 Days: no previous admission in last 30 days Current Decision-Making Capacity: Self Advance Care Planning: Attempt Cardiopulmonary Resuscitation - Inpatient <no information> -Advanced Directive: Yes, not on file Who is your DPOA-HC?: Spouse Current Coping/Education/Information Needs: pain management, pending PT OT mobility assessment post op Current Functional Ability: Assistive Equipment, Assistive Person Functional Status Prior to Admission: Assistive Person Home Environment: Others in the home: spouse. Current Living Arrangements: home/apartment/condo. Accessibility Concerns:2 EFREN then all one level ranch. Current DME: none Home Address confirmed as: [address] [place] [id number] Social & Family Supports: All names listed below confirmed with patient as current and correct NO: [phone] is incorrect: Extended Emergency Contact Information Primary Emergency Contact: Marcus Estrella [place] Mobile Relation: Spouse Patient ceel Number: [phone] Current Care Provided by: self Provides Primary Care For: no one Caregiver if needed: spouse Quality of Family relationships: helpful, involved, supportive Community Resources being provided currently: none Behavioral Health History: no Substance Use/Abuse confirmed: Social History Tobacco Use Smoking Status Former Smoker ??? Packs/day: 0.25 ??? Quit date: 05/29/2013 ??? Years since quittin.9 Smokeless Tobacco Never Used In the past year have you used an illegal drug or used a prescription medication for non-medical reaons?: No 0 No problems reported 1-2 Low level 3-5 Moderate level 6-8 Substantial level 9- 10 Severe level In the past year have you had 4 or more drinks a day containing alcohol?: No Health/Prescription Coverage: Primary Insurance: MEDICARE QA on Request Payor: MEDICARE QA on Request / Plan: MEDICARE RAILROAD PART A&B / Product Type: *No Product type* / Secondary Insurance: AARP SUPPLEMENT Prescription Coverage: Yes Preferred Pharmacy: [facility] [address] [place], [place] - [address] [facility] [facility] [id number] [facility] [address] [facility] [address] [facility] [id number] [facility] [address] [facility] [address] [phone] Status: Patient is a : No Primary Care Provider: Patricio Gabriel MD [phone] Patient/Caregiver Goals of Treatment: return home with support of and home care; would prefer home care to inpt rehab Potential Needs for Transition of Care: durable medical equipment, home health care Agency Referrals: The Patient has been provided a list of Home Health Agencies/DME vendors which serve their preferredgeographic area. A letter describing our affiliations was reviewed with them and they were educated about their right to choose where referrals are placed. Provided patient with [facility] Star Quality Rating for Home care hand out. Patient requests referral to [facility]. PHONE: [phone] FAX: [phone] Expected date of discharge: 05/10/21. Referral routed to the Social Worker for matching with agency/vendor and to provide any required information. Transportation: no concerns Transportation Anticipated: family or friend will provide Concerns to be Addressed: discharge planning Assessment: Patient is admitted to Neurosurgery service for L5-S1 disc herniation for Laminectomy Plan: Met with pt; she is having difficulty with pain control at present (POD#1). Await PT OT eval,pt would prefer home care (has had in past) and will need to add choices if PT OT recommend inpatient rehab. A member of the Care Management team will continue to monitor progress, follow for continuity of care and assist with transition of care planning. Lan Nixon RN BSN CM Neurology Employment Office ClerkCare Transition Coordinator of Care Management Pager [phone] Plan of Care - Nicci Bassett RN - 05/08/2021 10:50 PM EST OUTCOME EVALUATION NOTE: OUTCOME SUMMARY: Alert and oriented x4 RA BP meds help for low BP Neuro assessment unchanged from baseline Physical assessment as documented. Scheduled meds given per MAY. PLAN MOVING FORWARD: Discharge planning Pain management Mobility INDIVIDUALIZED FALL PREVENTION INTERVENTIONS: Patient-specific fall risk factors per assessment: [current deficits]: Generalized weakness, hospital environment , Pain Assistance [level of assistance required for transfers and ambulation]: stand by assist Supervision [direct monitoring required during toileting and ADLs]: Hands on Surveillance [continuous indirect monitoring]: Call osman within reach, bed alarm on, room near nurses station, masimo on, hourly rounding utilized. Patient-specific fall prevention interventions for sensory deficits provided, if applicable: [X] No CPG GOAL OUTCOME EVALUATION: Plan of Care - Prerna Youngblood RN - 05/08/2021 3:48 PM EST OUTCOME EVALUATION NOTE: OUTCOME SUMMARY: Pt A+Ox4; VSS on 2L NC, on RA prior to surgery. VSS within baseline. Pt endorses pain in RLE and back, relieved with scheduled pain medications and repositioning. Pt out to had Laminectomy and L5-S1 microdissection; dressings remain clean, dry and intact. at bedside and attentive to patient. Q4 neuro checks remain unchanged from baseline; RLE numbness to knee as well as grade 3 strength compared with LLE grade 5. Pt sleeps between care. Medications given per MAY, assessment as filed. Will continue to monitor and notify team of any changes. PLAN MOVING FORWARD: Pain Management Mobility D/C planning INDIVIDUALIZED FALL PREVENTION INTERVENTIONS: Patient-specific fall risk factors per assessment: [current deficits]: Generalized weakness, IV sites/lines, hospital environment, pain, RLE numbness Assistance [level of assistance required for transfers and ambulation]: 1a to commode Supervision [direct monitoring required during toileting and ADLs]: Hands on Surveillance [continuous indirect monitoring]: Masimo, room near unit station, callbell within reach, bed alarm on, purposeful rounding Patient-specific fall prevention interventions for sensory deficits provided, if applicable: [X] N/A CPG GOAL OUTCOME EVALUATION: Op Note - Nancy Fountain MD - 05/08/2021 1:10 PM EST [facility] Oper[facility] Note Patient Name: Yesi Estrella : [id number] MR#: [id number] Case Date: 05/08/2021 Surgeon: Surgeon(s) and Role: * Nancy Fountain MD - Primary * Luis Fernando Luz MD - Resident Preoperative diagnosis: R L5-S1 disc herniation Postoperative diagnosis: R L5-S1 disc herniation Procedure(s) (LRB): LAMINECTOMY LUMBAR, DECOMPRESSION, 1 OR 2 SEGMENTS (WRVU 16.43) (Midline) MICROSCOPE USE (WRVU 3.46) (N/A) 1. L5-S1 diskectomy 2. Microscope use Findings: Large L5-S disk fragment caudally migrated behind S1 body Anesthesia: General Estimated Blood Loss: 35 mL Specimens removed during surgery: None Drains: None Surgical Closure: Primary Closure - skin incision is completely closed without any wires, vero, drains or other devices Disposition: awakened from anesthesia, extubated and taken to the recovery room in a stable condition, having suffered no apparent untoward event. Condition: doing well without problems (Please see the Surgical Encounter Summary for any Implant and Specimen details pertinent to this patient.) Yesi montoya is a 71-year-old woman with a previous history of lumbar discectomies who presents with 2 weeks of excruciating right leg pain, right ankle weakness, and back pain. She presented to the emergency department, and an MRI of the lumbar spine demonstrated a large right-sided L5-S1 disc extrusion with impingement on the S1 nerve root. After discussion of the risks, benefits, and alternatives, she elected to undergo right L5-S1 hemilaminectomy and microdiscectomy. The patient was seen and interviewed in the preoperative holding area. An updated history and physical as well as consent was verified. The operative site was the lumbar spine, no type alirio was needed.The patient was brought back to the operating by anesthesia. General endotracheal anesthesia was induced without complication. A Lacy was placed. The patient was positioned prone on a Umberto frame, with arms in superman position. All pressure points were padded, particular attention was paid to the eyes. Her prior lumbar incision was clearly visible. C-arm was brought in, crosstable imaging was usedto localize our incision to overlying the L5-S1 discitis. The patient was then prepped and draped inthe usual sterile fashion. A timeout was undertaken. 2 g of cefazolin were administered intravenously. The skin was anesthetized with 1% lidocaine with 1 to 200;000 parts epinephrine. The skin was opened sharply with a 10 blade down to the level of the fascia. The Bovie was used to expose the lamina and SP of L5 and S1 on the right, in subperiosteal fashion. The wounds retractor was now placed, and we were able to identify the trailing edge of the L 5 lamina using a curette. A 4 [place] was placed in this location, and repeat x-ray was made with the C arm to confirm the level. We also took an x-ray with an [place] under the lamina of L4. Once we were certain of the level, a marking pen was used to identify the L5 lamina on the right. Microscope was brought into the field. Under microscopic vision, we performed a right L5 hemilaminectomy W clearly identified dura, as well as the lateral ligament. This was densely scarred from her prior operation. We performed a medial facetectomy of the L5-S1 facet on the right, more able to see clearly the disc bulge in the axilla of the nerve root. We used an 11 blade to incise the annulus, and evacuated some disc under microscopic vision. We then continuedwith our foraminotomy laterally until I could clearly identify the exiting nerve root of S1. We working underneath this root with a downgoing curette we evacuated further pieces of disc. We then explored the disc space at the superior endplate of S1. We could see some adherent disc fragments here, butwere not able to find a free fragment which we had expected to see based on the MRI. At this point, we used a right angle probe, and swept behind the PLL and above the vertebral body of 5. One could see that there was some adherent ligament. A microscissor was used to resect this, following this 2 very large disc fragments were then evacuated. We continued finished the discectomy using a downgoing curette and peapod to knock loose fragments of disc which were then evacuated using a Gonzalez pituitary. Throughout the entire case the patient was not paralyzed, we noted no spasms in the right leg. Once were satisfied with her discectomy, a [place] was used to feel all around the nerve root to confirm that the root was well decompressed. We then copiously irrigated the entire incision. 2 pieces of thrombin Gelfoam were used for hemostasis over the nerve root and epidural space. We then delivered Depo-Medrol in the incision. The microscope was removed, and the procedure closed in layered fashion. Interrupted 0 Vicryls were used for the fascia, interrupted 2-0 Vicryl's were used for the deep dermal layer, and the skin was closed with hitesh. At the end of the case, all counts were correct. I was present for the entire procedure. Surgical Infection Prevention Bundle Used? N/A Attestation: Case Date: 05/08/2021 I was present and I participated during the entire procedure (does not need to include opening and closing). Nancy Fountain MD 05/08/2021 Brief Op Note - Luis Fernando Luz MD - 05/08/2021 12:32 PM EST Brief Operative Note Patient Name: Yesi Estrella : [id number] MR#: [id number] Case Date: 05/08/2021 Surgeon: Surgeon(s) and Role: * Nancy Fountain MD - Primary * Luis Fernando Luz MD - Resident Preoperative diagnosis: R L5-S1 disc herniation Postoperative diagnosis: R L5-S1 disc herniation Procedure(s) (LRB): LAMINECTOMY LUMBAR, DECOMPRESSION, 1 OR 2 SEGMENTS (WRVU 16.43) (Midline) MICROSCOPE USE (WRVU 3.46) (N/A) Anesthesia: General Findings: L5S1 HNP, Scar tissue Complications: none Estimated Blood Loss: 35 mL* No values recorded between 05/08/2021 10:00 AM and 05/08/2021 12:13 PM * Specimens removed during surgery: None Fluids: Intraprocedure Crystalloid Total None PRBCs: none (See Anesthesia Record/Report for Other Blood Products) Urine Output: 660 mL Drains: none Disposition: awakened from anesthesia, extubated and taken to the recovery room in a stable condition, having suffered no apparent untoward event. Condition: doing well without problems (Please see the Surgical Encounter Summary for any Implant and Specimen details pertinent to this patient.) Luis Fernando Luz MD documented in this encounter Plan of Treatment Upcoming Encounters Date Type Specialty Care Team Description 12/28/2021 Office Visit Neurosurgery Nancy Fountain MD [facility] [address] [facility] [place], [place] [address] (Wo rk) documented as of this encounter Procedures Procedure Name Priority Date/Time Associated Comments Diagnosis HC URINE CULTURE Routine 05/10/2021 8:27 AM Resul ts for this EST procedure are i n the results section. COVID-19 PCR Routine 05/10/2021 6:04 AM Results f or this EST procedure are i n the results section. HEMOGRAM Routine 05/10/2021 6:03 AM Results f or this EST procedure are i n the results section. DIFFERENTIAL, Routine 05/10/2021 6:03 AM Results for this AUTOMATED EST procedure are i n the results section. HC CBC,PLT & AUTO Routine 05/10/2021 6:03 AM DIFF EST HC VENIPUNCTURE Routine 05/10/2021 6:03 AM Result s for this EST procedure are i n the results section. HEMOGRAM Routine 05/09/2021 5:55 AM Results f or this EST procedure are i n the results section. DIFFERENTIAL, Routine 05/09/2021 5:55 AM Results for this AUTOMATED EST procedure are i n the results section. HC CBC,PLT & AUTO Routine 05/09/2021 5:55 AM DIFF EST HC VENIPUNCTURE Routine 05/09/2021 5:55 AM Result s for this EST procedure are i n the results section. XR FLUORO NO RAD <1HR Routine 05/08/2021 12:44 Re sults for this - OR USE PM EST procedure are i n the results section. MICROSCOPE USE Routine 05/08/2021 10:30 AM EST MICROSCOPE USE (WRVU 05/08/2021 9:16 AM R L5-S1 disc 3.46) EST herniation LAMINECTOMY LUMBAR, 05/08/2021 9:16 AM R L5-S1 disc DECOMPRESSION, 1 OR 2 EST herniation SEGMENTS (WRVU 16.43) LAMINECTOMY LUMBAR, Routine 05/08/2021 8:21 AM DECOMPRESSION, 1 OR 2 EST SEGMENTS HEMOGRAM Routine 05/08/2021 6:44 AM Results f or this EST procedure are i n the results section. DIFFERENTIAL, Routine 05/08/2021 6:44 AM Results for this AUTOMATED EST procedure are i n the results section. HC CBC,PLT & AUTO Routine 05/08/2021 6:44 AM DIFF EST HC VENIPUNCTURE Routine 05/08/2021 6:44 AM Result s for this EST procedure are i n the results section. URINE HOLD Routine 05/08/2021 12:31 Results for this AM EST procedure are i n the results section. HC URINE CULTURE Routine 05/08/2021 12:31 Results for this AM EST procedure are i n the results section. TYPE AND SCREEN Routine 05/07/2021 4:50 PM Result s for this VALIDITY EST procedure are i n the results section. ABORH RECHECK STATUS Routine 05/07/2021 4:50 PM R esults for this EST procedure are i n the results section. HEMOGRAM Routine 05/07/2021 4:50 PM Results f or this EST procedure are i n the results section. DIFFERENTIAL, Routine 05/07/2021 4:50 PM Results for this AUTOMATED EST procedure are i n the results section. ABO/RH TYPING Routine 05/07/2021 4:50 PM Results for this EST procedure are i n the results section. HC CBC,PLT & AUTO Routine 05/07/2021 4:50 PM DIFF EST ANTIBODY SCREEN Routine 05/07/2021 4:50 PM Result s for this EST procedure are i n the results section. HC ABO-MICROTITER Routine 05/07/2021 4:50 PM EST BASIC METABOLIC PANEL Routine 05/07/2021 4:50 PM Results for this (NON-FASTING) EST procedure are in the results section. RAPID COVID-19 PCR STAT 05/07/2021 3:42 PM Res ults for this ([facility]/APD/[facility]) EST procedure are in the results section. MRI LUMBAR SPINE STAT 05/07/2021 2:03 PM Resul ts for this WITHOUT CONTRAST EST procedure a re in the results section. documented in this encounter Results Urine culture Clean Catch Urine (05/10/2021 8:27 AM EST) [facility] Method Time Signature Urine Culture No growth KAYLAH RODRIGUEZ (Less than [facility] 1,000 [facility] cfu/ml). LABORATORY Specimen Anatomical Collection Method Collection Time Receive d Time (Source) Location / / Volume Laterality Clean Catch 05/10/2021 8:27 AM 8:49 Urine EST AM EST Resulting Agency Comment Spec In Lab Nancy Fountain MD MICROBIOLOGY - GENERAL ORDER IZZY Performing Organization Address City/State/[place] [address] COVID-19 PCR (05/10/2021 6:04 AM EST) [facility] Method Time Signature SARS-CoV-[address] [facility] Comment: This result should be interpreted in com bination with the clinical observations, patient history and epidem iological information in making a final diagnosis. For testing of asymptomatic i ndividuals, assay performance characteristics and clinical utility hav e not been evaluated. Testing for SARS-CoV-2 (Severe acute respiratory syn drome coronavirus 2, formerly known as 2019 novel coronavirus or 2019-nCoV) to aid in the diagnosis of COVID-19 is performed using the [employer] S-CoV-2 Assay as authorized by the FDA Emergency Use Authorization (EUA). This EUA assay is intended for In-vitro Diagnostic (IVD) use with respiratory sp ecimens such as nasopharyngeal swabs collected from individuals during the ac pit[place] point phase of infection. This assay is performed based on the instructions for use provided by [employer] and additional guidance provided by CDC and FDA. Testing is performed in the [facility] Laboratory within the Department of Pathology and Laboratory Medicine at [facility], certified under the Clinical Laboratory Improvement Amendments of 1988 (CLIA), 42 U.S.C. 263a, to perform high complexi ty tests. Assay performance has been verified according to clinical laborator y regulatory requirements for use with specimens collected from individuals lazaro pected of COVID-19. Test results are provided above. A result of Not Detecte d indicates that the viral RNA target is not present above the limit of detect ion, but does not preclude SARS-CoV-2 infection. False negative results may oc cur if a specimen is improperly collected, transported or handled; if am plification inhibitors are present; or if inadequate numbers of viral particles are present in the specimen. When a diagnostic test is negative, the possibi lity of a false negative result should be considered in the context of a patien t's recent exposures and the presence of clinical signs and symptoms consisten t with COVID-19. A result of Detected indicates that RNA from SARS-CoV-2 was d etected and the patient is infected. As required or requested by public health a uthorities, positive specimens may be sent for additional testing. Positive an d negative predictive values for this test are highly dependent on disease pre valence. A result of Invalid indicates that neither the viral RNA tar gets nor the internal control target was detected. An invalid result suggests the presence of inhibitors. Recollection and re-testing is recommend ed in the case of an invalid result. CDC COVID-19 criteria for testing on hum an specimens and clinical management guidance information are available at [facility] CDC Coronavirus Disease 2019 (COVID-19) webpage under Information fo r Healthcare Professionals (https://www.cdc.gov/coronavirus/2019-nc ov/hcp/index.html) Additional information about this and ot her EUA tests can be found in provider and patient fact sheets at the following FDA website: https://www.fda.gov/medical-devices/goaubbjmmrc-jhgqxvj-6318-vrxsi-27-vloavdgxn- bvy-qsdetnpxipswnq-orjryui-devices/gtelj-vlldtduzmef-zhlj SARS-Cov-2 RNA Source [employer] [facility]OR[facility] Specimen (Source) Anatomical Collection Method Collection Time Re ceived Time Location / / Volume Laterality Nasopharyngeal Swab 05/10/2021 6:04 05/10 AM EST 8:05 AM EST Comment: Symptoms->Surveillance Resulting Agency Comment Spec In Lab Nancy Fountain MD MICROBIOLOGY - GENERAL ORDER IZZY Performing Organization Address City/State/[place] [address] (ABNORMAL) Differential, Automated (05/10/2021 6:03 AM EST) [facility] Method Time Signature Neutrophils % 74.8 % [facility] LABOR[facility] Neutr Abs (ANC) 8.10 (H) 1.70 - [facility] 6.10 [facility] x10(3)/[facility] LABORATORY Lymphocytes % 16.5 % [facility] LABORATORY Lymphocytes Abs 1.8 0.9 - 3.2 [facility] x10(3)/[facility] LABORATORY Monocytes % 7.4 % [facility] Monocyte Abs 0.8 0.3 - 0.9 [facility] x10(3)/[facility] LABORATORY Eosinophils % 0.6 % [facility] Eosinophils Abs 0.1 0.0 - 0.4 [facility] x10(3)/[facility] LABORATORY Basophils % 0.2 % [facility] Basophils Abs 0.0 0.0 - 0.1 [facility] x10(3)/[facility] LABORATORY Immature Gran % 0.50 % [facility] Comment: Immature granulocytes(IG's)percentage an d absolute count will include metamyelocytes, myelocytes, and promyelo cytes. Blood smears from CBCs yielding IG's will be scanned manually for concor dance. If this scan disagrees with the automated IG or if promyelocytes are not ed, a manual differential will be performed. Denise Gran Abs 0.05 (H) 0.00 - 0.04 x10(3)/[facility] LABORATORY Specimen Anatomical Collection Method Collection Time Receive d Time (Source) Location / / Volume Laterality Blood 05/10/2021 6:03 AM 6:21 EST AM EST Resulting Agency Comment Spec In Lab Masha Grayson MD HEMATOLOGY ORDERABLES Performing Organization Address City/State/[place] [address] (ABNORMAL) Hemogram (05/10/2021 6:03 AM EST) Analysis Performed At Patho logist Time Signature WBC 10.8 (H) 4.0 - 9.5 [facility] x10(3)/[facility] LABORATORY RBC 3.57 (L) 4.00 - [facility] 5.21 [facility] x10(6)/[facility] LABORATORY Hemoglobin 11.8 11.7 - [facility] 15.[facility] g/dL [facility] LAB[facility]ATORY Hematocrit 34.3 (L) 35.7 - [facility] JENNIFER 45.8 % [facility] LABORATORY MCV 96.1 (H) 82.6 - [facility] 94.4 [facility] LABORATORY MCH 33.1 (H) 27.1 - KAYLAH JENNIFER 32.0 pg [facility] LABORATORY MCHC 34.4 31.7 - [facility] 35.0 g/dL [facility] LABORAT[facility] Platelets 174 145 - 357 [facility] x10(3)/[facility] RDWSD 47.1 (H) 37.0 - KAYLAH JENNIFER 46.0 [facility] RDWCV 13.3 11.5 - [facility] JENNIFER 14.1 % [facility] LABORATORY MPV 10.3 7.6 - 12.9 [facility] LABORATORY nRBC % Auto 0.0 % [facility] LABORATORY nRBC Abs Auto 0.000 0.000 - [facility] 0.000 [facility] x10(3)/[facility] LABORATORY Specimen Anatomical Collection Method Collection Time Receive d Time (Source) Location / / Volume Laterality Blood 05/10/2021 6:03 AM 6:21 EST AM EST Resulting Agency Comment Spec In Lab Masha Grayson MD HEMATOLOGY ORDERABLES Performing Organization Address City/State/[place] [address] Basic Metabolic Panel (non-fasting) (05/10/2021 6:03 AM EST) P athologist Signature Glucose Lvl 180 65 - 199 [facility] mg/dL [facility] LABORATORY Comment: Diabetes: >=200 mg/dL plus symp toms BUN 12 8 - 18 mg/dL [facility] LABORATORY Creatinine 0.70 0.70 - 1.20 mg/dL [facility] LABORATORY Sodium 139 135 - 145 mmol/L [facility] LABORATORY Potassium 3.9 3.5 - 5.0 mmol/L [facility] LABORATORY Comment: Please note: ??Patients with WBC >100,00 0 may have falsely elevated Potassium levels. ??For accurate Potassium quantif ication in these patients send serum separator tube (gold top) for subsequent determinations. ??Contact the Clinical Chemistry Laboratory if there are any qu estions. Chloride 103 98 - 107 mmol/L [facility] LABORATORY CO2 26 22 - 31 mmol/L [facility] LABOR[facility] Anion Gap 10 5 - 15 mmol/L [facility] LABORATORY Calcium 8.8 8.5 - 10.5 mg/dL [facility] LABORATORY Estimated GFR 87 >=60 mL/min/1.73 m?? [facility] Comment: This patient? s estimated glomerular filtration rate (eGFR) is between 87 mL/min/1.73 m2 (patients with less muscl e mass) and 101 mL/min/1.73 m2 (patients with more muscle mass) as dete rmined by the CKD-EPI equation. Assessment of eGFR is not appropriate wh en creatinine concentrations are rapidly changing. For clinical decisions where creatinine clearance will affect therapy, a 24-hour urine creatinine mckay cynthia may be advised. Assignment of CKD stage 1 - 5 for patien ts with an eGFR near the transition point between stages may be based on cli nical assessment of muscle mass and symptoms in addition to eGFR. Specimen Anatomical Collection Method Collection Time Receive d Time (Source) Location / / Volume Laterality Blood 05/10/2021 6:03 AM 6:21 EST AM EST Resulting Agency Comment Spec In Lab Nancy Fountain MD CHEMISTRY ORDERABLES Performing Organization Address City/State/[place] [address] (ABNORMAL) Differential, Automated (05/09/2021 5:55 AM EST) [facility] gist Method Time Signature Neutrophils % 84.6 % [facility] LABORATORY Neutr Abs (ANC) 11.14 (H) 1.70 - [facility] 6.10 [facility] x10(3)/[facility] LABORATORY Lymphocytes % 8.7 % [facility] LABORATORY Lymphocytes Abs 1.2 0.9 - 3.2 [facility] x10(3)/[facility] LABORATORY Monocytes % 6.0 % [facility] LABORATORY Monocyte Abs 0.8 0.3 - 0.9 [facility] x10(3)/[facility] LABORATORY Eosinophils % 0.0 % [facility] Eosinophils Abs 0.0 0.0 - 0.4 [facility] x10(3)/[facility] LABORATORY Basophils % 0.1 % [facility] LABORAT[facility] Basophils Abs 0.0 0.0 - 0.1 [facility] x10(3)/[facility] LABORATORY Immature Gran % 0.60 % [facility] Comment: Immature granulocytes(IG's)percentage an d absolute count will include metamyelocytes, myelocytes, and promyelo cytes. Blood smears from CBCs yielding IG's will be scanned manually for concagapito danreina. If this scan disagrees with the automated IG or if promyelocytes are not ed, a manual differential will be performed. Denise Gran Abs 0.08 (H) 0.00 - 0.04 x10(3)/[facility] LABORATORY Specimen Anatomical Collection Method Collection Time Receive d Time (Source) Location / / Volume Laterality Blood 05/09/2021 5:55 AM 6:16 EST AM EST Resulting Agency Comment Spec In Lab Masha Grayson MD HEMATOLOGY ORDERABLES Performing Organization Address City/State/[place] [address] (ABNORMAL) Hemogram (05/09/2021 5:55 AM EST) Analysis Performed At Patho logist Time Signature WBC 13.2 (H) 4.0 - 9.5 [facility] x10(3)/[facility] LABORATORY RBC 3.84 (L) 4.00 - [facility] 5.21 [facility] x10(6)/[facility] LABORATORY Hemoglobin 12.8 11.7 - [facility] 15.5 g/dL [facility] LABORATORY Hematocrit 36.4 35.7 - [facility] 45.8 % [facility] LABORATORY MCV 94.8 (H) 82.6 - [facility] 94.4 [facility] LABORATORY MCH 33.3 (H) 27.1 - [facility] JENNIFER 32.0 pg [facility] LABORATORY MCHC 35.2 (H) 31.7 - [facility] 35.0 g/dL [facility] LABORATORY Platelets 184 145 - 357 [facility] x10(3)/[facility] LABORATORY RDWSD 44.3 37.0 - [facility] JENNIFER 46.0 [facility] LABORATORY RDWCV 12.9 11.5 - [facility] JENNIFER 14.1 % [facility] LABORATORY MPV 10.3 7.6 - 12.9 [facility] LABORATORY nRBC % Auto 0.0 % [facility] LABORATORY nRBC Abs Auto 0.000 0.000 - [facility] [employer] 0.000 [facility] x10(3)/[facility] LABORATORY Specimen Anatomical Collection Method Collection Time Receive d Time (Source) Location / / Volume Laterality Blood 05/09/2021 5:55 AM 6:16 EST AM EST Resulting Agency Comment Spec In Lab Masha Grayson MD HEMATOLOGY ORDERABLES Performing Organization Address City/State/[place] [address] Basic Metabolic Panel (non-fasting) (05/09/2021 5:55 AM EST) P athologist Signature Glucose Lvl 198 65 - 199 [facility] mg/dL [facility] LABORATORY Comment: Diabetes: >=200 mg/dL plus symp toms BUN 12 8 - 18 mg/dL [facility] LABORATORY Creatinine 0.72 0.70 - 1.20 mg/dL [facility] LABORATORY Sodium 137 135 - 145 mmol/L [facility] LABORATORY Potassium 4.2 3.5 - 5.0 mmol/L [facility] LABORATORY Comment: Please note: ??Patients with WBC >100,00 0 may have falsely elevated Potassium levels. ??For accurate Potassium quantif ication in these patients send serum separator tube (gold top) for subsequent determinations. ??Contact the Clinical Chemistry Laboratory if there are any qu estions. Chloride 104 98 - 107 mmol/L [facility] LABOR[facility]ORY CO2 22 22 - 31 mmol/L [facility] LAB[facility] Anion Gap 11 5 - 15 mmol/L [facility] LABORATORY Calcium 8.6 8.5 - 10.5 mg/dL [facility] LABORATORY Estimated GFR 84 >=60 mL/min/1.73 m?? [facility] Comment: This patient? s estimated glomerular filtration rate (eGFR) is between 84 mL/min/1.73 m2 (patients with less muscl e mass) and 98 mL/min/1.73 m2 (patients with more muscle mass) as determined by the CKD-EPI equation. Assessment of eGFR is not appropriate when creatinine concentrations are rapidly changing. For clinical decisions where creatinine clearance will affect therapy, a 24-hour urine creatinine clearance may b e advised. Assignment of CKD stage 1 - 5 for patien ts with an eGFR near the transition point between stages may be based on cli nical assessment of muscle mass and symptoms in addition to eGFR. Specimen Anatomical Collection Method Collection Time Receive d Time (Source) Location / / Volume Laterality Blood 05/09/2021 5:55 AM 6:16 EST AM EST Resulting Agency Comment Spec In Lab Nancy Fountain MD CHEMISTRY ORDERABLES Performing Organization Address City/State/[place] [address] XR Fluoro No Rad <1Hr - OR Use (05/08/2021 12:44 PM EST) Specimen (Source) Anatomical Location Collection Method / Collectio n Time Received Time / Laterality Volume Narrative Dicom, Auditing User - 05/08/2021 12:45 PM EST This exam is auto-finalizing. No interpr etation was done. Nancy Fountain MD IMG FLUORO ORDERABLES Differential, Automated (05/08/2021 6:44 AM EST) P athologist Signature Neutrophils % 51.5 % [facility] LABORATORY Neutr Abs (ANC) 3.85 1.70 - [facility] 6.10 [facility] x10(3)/[facility] LABORATORY Lymphocytes % 38.3 % [facility] LABORATORY Lymphocytes Abs 2.9 0.9 - 3.2 [facility] x10(3)/[facility] LABORATORY Monocytes % 7.0 % [facility] LABORATORY Monocyte Abs 0.5 0.3 - 0.9 [facility] x10(3)/[facility] LABORATORY Eosinophils % 2.8 % [facility] LAB[facility]ATORY Eosinophils Abs 0.2 0.0 - 0.4 [facility] x10(3)/[facility] LABORATORY Basophils % 0.3 % [facility] Basophils Abs 0.0 0.0 - 0.1 [facility] x10(3)/[facility] LABORATORY Immature Gran % 0.10 % [facility] Comment: Immature granulocytes(IG's)percentage an d absolute count will include metamyelocytes, myelocytes, and promyelo cytes. Blood smears from CBCs yielding IG's will be scanned manually for concor dance. If this scan disagrees with the automated IG or if promyelocytes are not ed, a manual differential will be performed. Denise Gran Abs 0.01 0.00 - 0.04 x10(3)/[facility] LABORATORY Specimen Anatomical Collection Method Collection Time Receive d Time (Source) Location / / Volume Laterality Blood 05/08/2021 6:44 AM 6:56 EST AM EST Resulting Agency Comment Spec In Lab Masha Grayson MD HEMATOLOGY ORDERABLES Performing Organization Address City/State/[place] [address] (ABNORMAL) Hemogram (05/08/2021 6:44 AM EST) Analysis Performed At Patho logist Time Signature WBC 7.5 4.0 - 9.5 [facility] x10(3)/[facility] LABORATORY RBC 4.02 4.00 - [facility] 5.21 [facility] x10(6)/[facility] LABORATORY Hemoglobin 13.3 11.7 - [facility] 15.5 g/dL [facility] LABORATORY Hematocrit 38.7 35.7 - [facility] 45.8 % [facility] LABORATORY MCV 96.3 (H) 82.6 - [facility] 94.4 [facility] LABORATORY MCH 33.1 (H) 27.1 - [facility] 32.0 pg [facility] LAB[facility]AT[facility] MCHC 34.4 31.7 - [facility] 35.0 g/dL [facility] LABORATORY Platelets 191 145 - 357 [facility] x10(3)/[facility] LABORATORY RDWSD 46.2 (H) 37.0 - [facility] 46.0 [facility] LABORATORY RDWCV 13.1 11.5 - [facility] 14.1 % [facility] LABORATORY MPV 10.0 7.6 - 12.9 [facility] LABORATORY nRBC % Auto 0.0 % [facility] LABORATORY nRBC Abs Auto 0.000 0.000 - [facility] JENNIFER 0.000 [facility] x10(3)/[facility] LABORATORY Specimen Anatomical Collection Method Collection Time Receive d Time (Source) Location / / Volume Laterality Blood 05/08/2021 6:44 AM 6:56 EST AM EST Resulting Agency Comment Spec In Lab Masha Grayson MD HEMATOLOGY ORDERABLES Performing Organization Address City/State/[place] [address] (ABNORMAL) Basic Metabolic Panel (non-fasting) (05/08/2021 6:44 AM EST) P athologist Signature Glucose Lvl 106 65 - 199 [facility] mg/dL [facility]OR[facility] Comment: Diabetes: >=200 mg/dL plus symp toms BUN 14 8 - 18 mg/dL [facility] LABORATORY Creatinine 0.84 0.70 - 1.20 mg/dL [facility] LABORATORY Sodium 134 (L) 135 - 145 mmol/L [facility] LABORATORY Potassium 3.8 3.5 - 5.0 mmol/L [facility] LABORATORY Comment: Please note: ??Patients with WBC >100,00 0 may have falsely elevated Potassium levels. ??For accurate Potassium quantif ication in these patients send serum separator tube (gold top) for subsequent determinations. ??Contact the Clinical Chemistry Laboratory if there are any qu estions. Chloride 101 98 - 107 mmol/L [facility] CO2 26 22 - 31 mmol/L [facility] LAB[facility] Anion Gap 7 5 - 15 mmol/L [facility] LABOR[facility]ORY Calcium 8.7 8.5 - 10.5 mg/dL [facility] LABORATORY Estimated GFR 70 >=60 mL/min/1.73 m?? [facility] Comment: This patient? s estimated glomerular filtration rate (eGFR) is between 70 mL/min/1.73 m2 (patients with less muscl e mass) and 81 mL/min/1.73 m2 (patients with more muscle mass) as determined by the CKD-EPI equation. Assessment of eGFR is not appropriate when creatinine concentrations are rapidly changing. For clinical decisions where creatinine clearance will affect therapy, a 24-hour urine creatinine clearance may b e advised. Assignment of CKD stage 1 - 5 for patien ts with an eGFR near the transition point between stages may be based on cli nical assessment of muscle mass and symptoms in addition to eGFR. Specimen Anatomical Collection Method Collection Time Receive d Time (Source) Location / / Volume Laterality Blood 05/08/2021 6:44 AM 6:56 EST AM EST Resulting Agency Comment Spec In Lab Nancy Fountain MD CHEMISTRY ORDERABLES Performing Organization Address [facility]/ZIP Code Phon e Number [address] Urine Hold (05/08/2021 12:31 AM EST) P athologist Signature Urine Hold Sample in [facility] lab. [facility] LABORATORY Specimen Anatomical Collection Method Collection Time Receive d Time (Source) Location / / Volume Laterality Urine Micro Spec / 05/08/2021 12:31 05/08/2021 Unknown AM EST 12:55 AM EST Masha Grayson MD URINE ORDERABLES Performing Organization Address [facility]/[place] [address] (ABNORMAL) Urine culture Clean Catch Urine (05/08/2021 12:31 AM EST) Component Value Ref Test Analysis Performed At [facility] PeerPong Range Method Time Signature Urine Culture Greater than 100,000 cfu/ml Normal mucosal pastor KAYLAH Susceptibility testing not routinely performed for Coagula se Negative JENNIFER Staphylococcus species and other Gram Positive organisms f rom urine. [facility] ([facility] LABORATORY Specimen Anatomical Collection Method Collection Time Receive d Time (Source) Location / / Volume Laterality Urine 05/08/2021 12:31 05/08/2021 2:11 AM EST AM EST Resulting Agency Comment Spec In Lab Nancy Fountain MD MICROBIOLOGY - GENERAL ORDER IZZY Performing Organization Address City/[facility]/ZIP [facility] Phon e Number [address] Type and Screen Validity (05/07/2021 4:50 PM EST) [facility] gist Method Time Signature T&S only valid [facility] LABORATORY Comment: This Type and Screen result is only valid at the [facility] Specimen Anatomical Collection Method Collection Time Receive d Time (Source) Location / / Volume Laterality Blood 05/07/2021 4:50 PM 02/07/202 2 4:59 EST PM EST Resulting Agency Comment Spec In Lab Masha Grayson MD BLOOD BANK ORDERABLES Performing Organization Address City/State/ZIP Code Phon e Number [address] ABORH Recheck Status (05/07/2021 4:50 PM EST) Patholo gist Method Time Signature ABORH Type Completed [facility] LABORATORY Specimen Anatomical Collection Method Collection Time Receive d Time (Source) Location / / Volume Laterality Blood 05/07/2021 4:50 PM 2 4:59 EST PM EST Resulting Agency Comment Spec In Lab Masha Grayson MD BLOOD BANK ORDERABLES Performing Organization Address City/[facility]/ZIP Code Phon e Number [address] Differential, Automated (05/07/2021 4:50 PM EST) P athologist Signature Neutrophils % 55.6 % [facility] LABORATORY Neutr Abs (ANC) 5.07 1.70 - [facility] 6.10 [facility] x10(3)/[facility] LABORATORY Lymphocytes % 34.1 % [facility] LABORATORY Lymphocytes Abs 3.1 0.9 - 3.2 [facility] x10(3)/[facility] LABORATORY Monocytes % 7.6 % [facility] LABORATORY Monocyte Abs 0.7 0.3 - 0.9 [facility] x10(3)/[facility] LABORATORY Eosinophils % 2.1 % [facility] LABORATORY Eosinophils Abs 0.2 0.0 - 0.4 [facility] x10(3)/[facility] LABORATORY Basophils % 0.4 % [facility] LABORATORY Basophils Abs 0.0 0.0 - 0.1 [facility] x10(3)/[facility] LABORATORY Immature Gran % 0.20 % [facility] LABORATORY Comment: Immature granulocytes(IG's)percentage an d absolute count will include metamyelocytes, myelocytes, and promyelo cytes. Blood smears from CBCs yielding IG's will be scanned manually for concor dance. If this scan disagrees with the automated IG or if promyelocytes are not ed, a manual differential will be performed. Denise Gran Abs 0.02 0.00 - 0.04 x10(3)/[facility] LABORATORY Specimen Anatomical Collection Method Collection Time Receive d Time (Source) Location / / Volume Laterality Blood 05/07/2021 4:50 PM 5:02 EST PM EST Resulting Agency Comment Spec In Lab Masha Grayson MD HEMATOLOGY ORDERABLES Performing Organization Address City/State/[place] [address] (ABNORMAL) Hemogram (05/07/2021 4:50 PM EST) Analysis Performed At Patho logist Time Signature WBC 9.1 4.0 - 9.5 [facility] x10(3)/[facility] LABORATORY RBC 4.48 4.00 - [facility] 5.21 [facility] x10(6)/[facility] LABORATORY Hemoglobin 14.6 11.7 - [facility] 15.5 g/dL [facility] LABORATORY Hematocrit 43.1 35.7 - [facility] 45.8 % [facility] LABORATORY MCV 96.2 (H) 82.6 - [facility] 94.4 [facility] LABORATORY MCH 32.6 (H) 27.1 - [facility] 32.0 pg [facility] LABORATORY MCHC 33.9 31.7 - [facility] 35.0 g/dL [facility] LABORATORY Platelets 230 145 - 357 [facility] x10(3)/[facility] LABORATORY RDWSD 46.2 (H) 37.0 - [facility] 46.0 [facility] RDWCV 13.0 11.5 - [facility] 14.1 % [facility] LABORATORY MPV 10.3 7.6 - 12.9 [facility] LABORATORY nRBC % Auto 0.0 % [facility] LABORATORY nRBC Abs Auto 0.000 0.000 - [facility] 0.000 [facility] x10(3)/[facility] LABORATORY Specimen Anatomical Collection Method Collection Time Receive d Time (Source) Location / / Volume Laterality Blood 05/07/2021 4:50 PM 2 5:02 EST PM EST Resulting Agency Comment Spec In Lab Masha Grayson MD HEMATOLOGY ORDERABLES Performing Organization Address City/[facility]/[place] [address] Antibody screen (05/07/2021 4:50 PM EST) Patholo gist Method Time Signature Ab Screen Negative [facility] LABORATORY Expires at 05/10/2021 [facility] 2359 on: [facility] LABORATORY Specimen Anatomical Collection Method Collection Time Receive d Time (Source) Location / / Volume Laterality Blood 05/07/2021 4:50 PM 2 4:59 EST PM EST Resulting Agency Comment Spec In Lab Masha Grayson MD BLOOD BANK ORDERABLES Performing Organization Address City/[facility]/[place] [address] ABO/Rh Typing (05/07/2021 4:50 PM EST) P athologist Signature ABORh Type O Pos [facility] LABORATORY Specimen Anatomical Collection Method Collection Time Receive d Time (Source) Location / / Volume Laterality Blood 05/07/2021 4:50 PM 2 4:59 EST PM EST Resulting Agency Comment Spec In Lab Masha Grayson MD BLOOD BANK ORDERABLES Performing Organization Address City/[facility] [place] [address] Basic Metabolic Panel (non-fasting) (05/07/2021 4:50 PM EST) P athologist Signature Glucose Lvl 111 65 - 199 [facility] mg/dL [facility] LABORATORY Comment: Diabetes: >=200 mg/dL plus symp toms BUN 15 8 - 18 mg/dL [facility] LABORATORY Creatinine 0.84 0.70 - 1.20 mg/dL [facility] LABORATORY Sodium 139 135 - 145 mmol/L [facility] LABORATORY Potassium 4.4 3.5 - 5.0 mmol/L [facility] LABORATORY Comment: Please note: ??Patients with WBC >100,00 0 may have falsely elevated Potassium levels. ??For accurate Potassium quantif ication in these patients send serum separator tube (gold top) for subsequent determinations. ??Contact the Clinical Chemistry Laboratory if there are any qu estions. Chloride 103 98 - 107 mmol/L [facility] LABORATORY CO2 26 22 - 31 mmol/L [facility] LABORATORY Anion Gap 10 5 - 15 mmol/L [facility] LABORATORY Calcium 9.4 8.5 - 10.5 mg/dL [facility] LABORATORY Estimated GFR 70 >=60 mL/min/1.73 m?? [facility] LABORATORY Comment: This patient? s estimated glomerular filtration rate (eGFR) is between 70 mL/min/1.73 m2 (patients with less muscl e mass) and 81 mL/min/1.73 m2 (patients with more muscle mass) as determined by the CKD-EPI equation. Assessment of eGFR is not appropriate when creatinine concentrations are rapidly changing. For clinical decisions where creatinine clearance will affect therapy, a 24-hour urine creatinine clearance may b e advised. Assignment of CKD stage 1 - 5 for patien ts with an eGFR near the transition point between stages may be based on cli nical assessment of muscle mass and symptoms in addition to eGFR. Specimen Anatomical Collection Method Collection Time Receive d Time (Source) Location / / Volume Laterality Blood 05/07/2021 4:50 PM 5:02 EST PM EST Resulting Agency Comment Spec In Lab Nancy Fountain MD CHEMISTRY ORDERABLES Performing Organization Address City/State/[place] [address] COVID-19 PCR (05/07/2021 3:42 PM EST) [facility] Method Time Signature SARS-CoV-2 Not Detected Not Detected KAYLAH RNA PCR [facility] LABORATORY Comment: This result should be interpreted in com bination with the clinical observations, patient history and epidem iological information. For testing of asymptomatic individuals, assay performa nce characteristics and clinical utility have not been evaluated. Testing for SARS-CoV-2 (Severe acute respiratory syndrome coronavirus 2, form erly known as 2019 novel coronavirus or 2019-nCoV) to aid in the diagnosis of CO VID-19 is performed using the Simplexa COVID-19 Direct Assay by [employer] solis as authorized by the FDA issued Emergency Use Authorization (EUA). This assay is intended for In-vitro Diagnostic (IVD) use with nasopharyngeal swabs collected from individuals meeting the CDC criteria for testing. e assay is performed based on the instructions for use and additional guid ance provided by the FDA. Testing is performed in the Microbiology Laboratory within the Department of Pathology and Laboratory Medicine at [facility], certified under the Clinical Laboratory Improvement Amendmen ts of 1988 (CLIA), 42 U.S.C. section 263a, to perform high complexity tests. Assay performance has been verified according to clinical laboratory regulat ory requirements. Test results are provided above. A resul t of Not Detected indicates that the viral RNA target is not present but does not preclude SARS-CoV-2 infection. False negative results may occur if a sp ecimen is improperly collected, transported or handled; if amplification inhibitors are present; or if inadequate numbers of viral particles ar e present in the specimen. A result of Detected suggests a current or recent infection and the patient is presumed to be infected. Positive and negative pr edictive values for this test are highly dependent on disease prevalence. A result of Invalid indicates the inability to conclusively determine the presence or absence of SARS-CoV-2 RNA in the sample which can be due to a vari ety of factors. Recollection is recommended in the case of an invalid re sult. CDC COVID-19 criteria for testing on hum an specimens and clinical management guidance information are available at th e CDC Coronavirus Disease 2019 (COVID-19) webpage under Information fo r Healthcare Professionals (https://www.cdc.gov/coronavirus/2019-nc ov/hcp/index.html). Additional information about this and ot her EUA tests can be found in provider and patient fact sheets at the following FDA website: https://www.fda.gov/medical-devices/btlgghjvkvs-mfyqhuc-3525-raciq-15-yzcprvpue- htd-clfhqxhhxqfykp-easxcqn-devices/jpmpc-sknbhynmavs-qefp SARS-CoV-2 Source [employer] [facility] LABORATORY Specimen (Source) Anatomical Collection Method Collection Time Re ceived Time Location / / Volume Laterality Nasopharyngeal Swab 05/07/2021 3:42 05/07 PM EST 5:16 PM EST Comment: Symptoms->Surveillance Resulting Agency Comment Spec In Lab Edith Granados MD MICROBIOLOGY - GENERAL ORDER IZZY Performing Organization Address City/State/[place] [address] MRI Lumbar Spine wo Contrast (Generic) (05/07/2021 2:03 PM EST) Anatomical Region Laterality Modality L-spine Magnetic Resonance Specimen (Source) Anatomical Location Collection Method / Collectio n Time Received Time / Laterality Volume Impressions 05/07/2021 2:16 PM EST 1. ??New right posterior paracentral L5-S1 disc extrusion with impingement of the right S1 nerve root. 2. ??Interval worsening of facet arthrop athy at L4-5 and L5-S1 with marked bilateral subarticular recess narrowing at L4-5 and bilateral neural foramen narrowing at L5-S1 Comment: The following findings are so c ommon in people without low back pain that while we report their presence, the y must be interpreted with caution and in context of the clinical situation (Re opornima- Armandok Et Al, Spine 2001). Findings: (Prevalence in patients withou t low back pain), disc degeneration (decreased T2 signal, height loss, bulge ) (91%), disc T2-signal loss (83%), disc height loss (56%), disc bulge (64%), dis c protrusion (32%), annular fissure (38%). Thank you for letting us participate in the care of this patient. ??If you are a health care provider and have any questi ons regarding this report, please contact the number below. ??For patients who have questions please contact the health neonatal intensive care nurse that requested your imaging first. ? Electronically signed by: Hermann Villarreal MD, [facility] ([phone]), at 05/07/2021 2:16 PM Narrative 05/07/2021 2:16 PM EST EXAMINATION: MRI LUMBAR SPINE WO CONTRAST (GENERIC) CLINICAL HISTORY: Low back pain, prior s urgery, new symptoms Right sided leg weakness cannot ambulate TECHNIQUE: MRI of the lumbar spine performed withou t intravenous contrast administration. COMPARISON: MRI of the lumbar spine of 01/02/2016 FINDINGS: There is straightening of the lumbar lawanda dosis. There is grade I anterolisthesis of L4 4 with respect L5, slightly worsen ed when compared to the prior study. Vertebral body heights are normal. There is loss of disc space height at each level in the lumbar spine. Marrow signal is within normal limits with the exception of discogenic degenerative end plate changes, largely fatty about the L3-4 and L4-5 and L5-S1 disc spaces. The conus medullaris is of normal contour and signal characteristics terminating a t the level of upper L2. There appears to have been a prior laminectomy at L4 a nd L5. At L1-2 there is mild bilateral facet ar thropathy but no visible nerve root impingement. At L2-3 there is a minor circumferential disc bulge and mild bilateral facet arthropathy which combine to produce sli ght relative narrowing the spinal canal and minor bilateral neural foramen narro wing. At L3-4 there is a circumferential disc bulge with a superimposed left posterior paracentral and foraminal disc extrusion . This abnormal material is unchanged in appearance from the prior study. There i s marked left subarticular recess stenosis with medial displacement of the descending left L4 nerve root, unchanged. The degree of neural foramen narrowing is mild. At L4-5 there is a asymmetric disc bulge larger on the left. There is marked bilateral facet arthropathy. These combi ne to produce marked narrowing of the subarticular recesses and mild left and mild/moderate right neural foramen narrowing. The subarticular recess narro wing is worsened since the prior study. At L5-S1 there is a right posterior para central disc extrusion with visible impingement of the right S1 nerve root. A component of this disc material may represent a sequestered fragment. This f inding is new or substantially larger since the prior study. There is bilatera l facet arthropathy and moderate to severe bilateral neural foramen narrowin g this level, worsened since that present previously Procedure Note Hermann Villarreal MD - 05/07/2021Format ting of this note might be different from the original. EXAMINATION: MRI LUMBAR SPINE WO CONTRAS T (GENERIC) CLINICAL HISTORY: Low back pain, prior s urgery, new symptoms Right sided leg weakness cannot ambulate TECHNIQUE: MRI of the lumbar spine performed withou t intravenous contrast administration. COMPARISON: MRI of the lumbar spine of 01/02/2016 FINDINGS: There is straightening of the lumbar lawanda dosis. There is grade I anterolisthesis of L4 4 with respect L5, slightly worsen ed when compared to the prior study. Vertebral body heights are normal. There is loss of disc space height at each level in the lumbar spine. Marrow signal is within normal limits with the exception of discogenic degenerative end plate changes, largely fatty about the L3-4 and L4-5 and L5-S1 disc spaces. The conus medullaris is of normal contour and signal characteristics terminating a t the level of upper L2. There appears to have been a prior laminectomy at L4 a nd L5. At L1-2 there is mild bilateral facet ar thropathy but no visible nerve root impingement. At L2-3 there is a minor circumferential disc bulge and mild bilateral facet arthropathy which combine to produce sli ght relative narrowing the spinal canal and minor bilateral neural foramen narro wing. At L3-4 there is a circumferential disc bulge with a superimposed left posterior paracentral and foraminal disc extrusion . This abnormal material is unchanged in appearance from the prior study. There i s marked left subarticular recess stenosis with medial displacement of the descending left L4 nerve root, unchanged. The degree of neural foramen narrowing is mild. At L4-5 there is a asymmetric disc bulge larger on the left. There is marked bilateral facet arthropathy. These combi ne to produce marked narrowing of the subarticular recesses and mild left and mild/moderate right neural foramen narrowing. The subarticular recess narro wing is worsened since the prior study. At L5-S1 there is a right posterior para central disc extrusion with visible impingement of the right S1 nerve root. A component of this disc material may represent a sequestered fragment. This f inding is new or substantially larger since the prior study. There is bilatera l facet arthropathy and moderate to severe bilateral neural foramen narrowin g this level, worsened since that present previously IMPRESSION 1. New right posterior paracentral L5-S1 disc extrusion with impingement of the right S1 nerve root. 2. Interval worsening of facet arthropat hy at L4-5 and L5-S1 with marked bilateral subarticular recess narrowing at L4-5 and bilateral neural foramen narrowing at L5-S1 Comment: The following findings are so c ommon in people without low back pain that while we report their presence, the y must be interpreted with caution and in context of the clinical situation (Re poornima- Armandok Et Al, Spine 2001). Findings: (Prevalence in patients withou t low back pain), disc degeneration (decreased T2 signal, height loss, bulge ) (91%), disc T2-signal loss (83%), disc height loss (56%), disc bulge (64%), dis c protrusion (32%), annular fissure (38%). Thank you for letting us participate in the care of this patient. If you are a health care provider and have any questi ons regarding this report, please contact the number below. For patients w ho have questions please contact the health neonatal intensive care nurse that requested your imaging first. Electronically signed by: Hermann Villarreal MD, [facility] ([phone]), at 05/07/2021 2:16 PM Edith Granados MD IMG MRI ORDERABLES documented in this encounter Visit Diagnoses Not on filedocumented in this encounter Admitting Diagnoses Diagnosis Back pain Backache, unspecified documented in this encounter Administered Medications Inactive Administered Medications - up to 3 most recent administrations Medication Order MAR Action Action Date Dose Rate Site acetaminophen (Tylenol) tablet 650 Given 05/10/2021 1:24 PM EST 650 mg mg 650 mg, Oral, EVERY 6 HOURS SCHEDULED, First dose on Fri05/07/21 at 1800, Until Discontinued Given 05/10/2021 6:08 AM EST 650 mg Given 05/10/2021 12:13 AM EST 650 mg atenoloL (Tenormin) tablet 50 mg Given 05/09/2021 9:13 PM EST 50 mg 50 mg, Oral, NIGHTLY, First dose (after last modification) on Fri05/08/21 at 0000, Until Discontinued, Routine Given 05/07/2021 11:19 PM EST 50 mg bisacodyL (Dulcolax) suppository 10 mg 10 mg, Rectal, DAILY PRN, Starting on Fri05/07/21 at 16 16, Until Fri05/10/21 at 1743, Constipation, Administer if needed per patient's routine or if no bowel movement within 48 hours to achieve: (1) One bowel movement every 48 hours, AND (2) Without straining. If multiple PRN bowel medications ordered, start with magnesium hydroxide, then bisacodyl. Multiple medications may be given concomitantly for constipation., Routine cyclobenzaprine (Flexeril) tablet 10 mg Given 05/10/2021 9:45 AM EST 10 mg 10 mg, Oral, 3 TIMES DAILY PRN, Starting on Fri05/07/21 at 1616, Until Fri05/10/21 at 1743, Muscle spasms, Routine Given 05/07/2021 10:56 PM EST 10 mg docusate sodium (Colace) capsule 100 mg Given 05/10/2021 9:45 AM EST 100 mg 100 mg, Oral, 2 TIMES DAILY, First dose on Fri05/07/21 at 2100, Until Discontinued, Routine Given 05/09/2021 9:13 PM EST 100 mg Given 05/09/2021 9:41 AM EST 100 mg gabapentin (Neurontin) capsule 300 mg Given 05/10/2021 9:45 AM EST 300 mg 300 mg, Oral, 3 TIMES DAILY, First dose on Fri05/08/21 at 0030, Until Discontinued, Routine Given 05/09/2021 9:13 PM EST 300 mg Given 05/09/2021 3:42 PM EST 300 mg gelatin adsorbable (Gelfoam) Given 05/08/2021 10:18 AM 2 each 19- Surgical Site sponge EST ONCE PRN, Starting on Fri05/08/21 at 1018, Until Fri05/10/21 at 1743, Intra-Operative (Intra-Procedure) labetaloL (Normodyne) (5 mg/mL) injectio n solution 10-20 mg 10-20 mg, Intravenous, EVERY 1 HOUR PRN, Starting on Fri05/07/21 at 1616, Until Fri05/10/21 at 1743, High Blood Pressure, Target systolic blood pressure (SBP) less than 160 mmHg. Administer 10 mg over 2 m inutes. May repeat every 15 minutes if SBP remains above goal. If inadequate effect with second 10 mg dose then increase dose to 20 mg for subsequent dosing every 15 minutes. Dose not to exceed 300 mg per day. Hold if pulse is less than 50 beats per minute., Ro utine lidocaine (Lidoderm) 5% Patch Applied 05/10/2021 11:35 AM 1 patch 08- Back Lower patch 1 patch EST (Right) 1 patch, Transdermal, EVERY 24 HOURS, First dose on Fri05/07/21 at 1112, Until Discontinued, Apply patch(es) for 12 hours, and then remove for 12 hours., Routine Patch Applied 05/09/2021 12:38 PM EST 1 patch 08- Back Lower (Right) Patch Applied 05/07/2021 11:19 AM EST 1 patch 08- Back Lower (Right) lidocaine (Lidoderm) topical patch REMOV AL Transdermal, EVERY 24 HOURS, First dose on Fri05/07/21 at 2310, Until Discontinued, Remove lidocaine 5% patch lidocaine (Xylocaine) 1% (10 mg/mL) inje ction 3 mg 3 mg (0.3 mL), Subcutaneous, ONCE PRN, 1 dose, Startin g on Fri05/08/21 at 1938, Until Ghislaine 05/10/21 at 1743, for discomfort with PIV ins ertion, Recovery (Recovery-Hospital Unit), Routine lidocaine-EPINEPHrine (pf) (1.5% Given 05/08/2021 9:58 AM 7 mLs 19- Surgical Site - 1:200,000) injection EST ONCE PRN, Starting on Fri05/08/21 at 0958, Until Ghislaine 05/10/21 at 1743, Intra-Operative (Intra-Procedure), Routine lisinopriL (Zestril) tablet 10 mg Given 05/09/2021 9:12 PM EST 10 mg 10 mg, Oral, NIGHTLY, First dose (after last modification) on Fri05/08/21 at 0000, Until Discontinued, Routine Given 05/07/2021 11:19 PM EST 10 mg magnesium citrate oral liquid 296 mL 296 mL, Oral, DAILY PRN, Starting on Fri05/07/21 at 1616, Until Ghislaine 05/10/21 at 1743, Constipation, Administer if no bowel mov ement within 48 hrs to achieve 1) one bowel movement at least every 48 hrs and 2) without strainin g. If multiple PRN bowel medications ordered, start with polyethylene glycol, t hen lactulose, then oral bisacodyl, then bisacodyl suppository, then magnesium citrate, then tap water enema. Multiple medications may be given concomitantly for constipation. May repeat times 1 in 4 hours., Routine magnesium citrate oral liquid 296 mL 296 mL, Per G Tube, DAILY PRN, Starting on Fri05/07/21 at 1616, Until Ghislaine 05/10/21 at 1743, Constipation, Administer if no bow el movement within 48 hrs to achieve 1) one bowel movement at least every 48 hrs and 2) without st raining. If multiple PRN bowel medications ordered, start with polyethylene gly col, then lactulose, then oral bisacodyl, then bisacodyl supposito ry, then magnesium citrate, then tap water enema. Multiple medications may be given concomitantly for constipation. May repeat times 1 in 4 hours., Routine magnesium hydroxide (Milk of Magnesia) ( 240 mg/mL) oral liquid 10 mL 10 mL, Oral, DAILY PRN, Starting on Fri05/07/21 at 1616, Until Ghislaine 05/10/21 at 1743, Constipation, Administer if needed per p atient's routine or if no bowel movement within 48 hours to achieve: (1) One josefa l movement every 48 hours, AND (2) Without straining. If multiple PRN bowel medications ordered, start with magnesium hydroxide, then bisacodyl. Multiple medications may be given concomitantly for constipation., Routine ondansetron (pf) (Zofran) (2 mg/mL) inje ction 4-8 mg 4-8 mg, Intravenous, EVERY 8 HOURS PRN, Starting on Fri05/07/21 at 1616, Until Ghislaine 05/10/21 at 1743, Nausea, If multiple antiemetics are ordered, use ondansetron first, prochlorperazine second, and meta clopramide third. Start with 4mg and if ineffective in 30 minutes, give an additional 4mg ondansetron (Zofran) tablet 4-8 mg 4-8 mg, Oral, EVERY 8 HOURS PRN, Startin g on Fri05/07/21 at 1616, Until Ghislaine 05/10/21 at 1743, Nausea, Vomiting, If multipl e antiemetics are ordered, use ondansetron first, prochlorperazine second, and metaclopramide thi rd. PO Preferred. If patient unable to take PO, may give IV if ordered. Sta rt with 4mg and if ineffective in 45 minutes, give an additional 4mg, Rou lito oxyCODONE (Roxicodone) tablet 10 mg Given 05/10/2021 4:34 AM EST 10 mg 10 mg, Oral, EVERY 4 HOURS PRN, Starting on Fri05/07/21 at 1618, Until Ghislaine 05/10/21 at 1743, Pain, severe pain (7-10), Routine Given 05/10/2021 12:19 AM EST 10 mg Given 05/09/2021 2:04 PM EST 10 mg oxyCODONE (Roxicodone) tablet 5 mg Given 05/09/2021 9:41 AM EST 5 mg 5 mg, Oral, EVERY 4 HOURS PRN, Starting on Fri05/07/21 at 1618, Until Ghislaine 05/10/21 at 1743, Pain, moderate pain (4-6), Routine pantoprazole EC (Protonix) tablet 40 mg Given 05/10/2021 9:45 AM EST 40 mg 40 mg, Oral, DAILY, First dose on Fri05/08/21 at 0900, Until Discontinued, DO NOT CRUSH OR OPEN, Routine Given 05/09/2021 9:41 AM EST 40 mg polyethylene glycoL (Miralax) packet 17 g 17 g, Oral, DAILY PRN, Starting on Fri at 1616, Until Ghislaine 05/10/21 at 1743, Constipation, Administer if no bowel mov ement within 48 hours to achieve: (1) One bowel movement at least every 48 hours, AND (2) without straining. If multiple PRN bowel medications ordered, start with polyethylene gly col, then lactulose, then oral bisacodyl, then bisacodyl supposito ry, then magnesium citrate, then tap water enema. Multiple medications may be given concomitantly for constipation., Routine senna-docusate (Pericolace) 8.6-50 mg per Given 2021 9:45 AM EST 2 tablets tablet 2 tablet 2 tablet, Oral, 2 TIMES DAILY, First dose on Fri05/07/21 at 2100, Until Discontinued, Routine Given 05/09/2021 9:12 PM EST 2 tablets Given 05/09/2021 9:41 AM EST 2 tablets sodium chloride 0.9 % (flush) (BD PosiFlush Given 05/10/2021 9:4 8 AM EST 5 mLs Normal Saline 0.9) flush 5 mL 5 mL, Intravenous, 2 TIMES DAILY, First dose on Fri05/08/21 at 2100, Until Discontinued, Recovery (Recovery-Hospital Unit), Routine Given 05/09/2021 9:14 PM EST 5 mLs Given 05/09/2021 9:43 AM EST 5 mLs sodium chloride 0.9 % (flush) (BD PosiFl ush Normal Saline 0.9) flush 5-20 mL 5-20 mL, Intravenous, EVERY 1 MIN PRN, S tarting on Fri05/08/21 at 1938, Until Ghislaine 05/10/21 at 1743, flush, Flush pertains t o all indwelling lines. Flush per protocol found in the job aid using the link prov ided on this medication record., Recovery (Recovery-Hospital Unit), Routine thrombin (bovine) Given 05/08/2021 10:16 AM 5,000 Units 19- Surgical Site (Thrombin-Jmi) solution EST ONCE PRN, Starting on Fri05/08/21 at 1016, Until Ghislaine 05/10/21 at 1743, Intra-Operative (Intra-Procedure) documented in this encounter Active and Recently Administered Medications Times are shown in EST. Scheduled Medication Order 05/08/2021 05/09/2021 05/10/2021 acetaminophen (Tylenol) tablet 650 mg 0039 (Given - Pr ovider: Can Dwyer RN)0558 (Given - Provider: Donna Shipman RN)0917 (MAY Hold - Provider: Admin Adt - Reason: Transfer to a Procedural area)1200 (Not Given - Provider: Prerna Youngblood RN - Reason: Patient/family refused) 0039 (Given - Provider: Nicci Bassett RN)0601 (Given - Provider: Nicci Bassett RN)1238 (Given - Provider: Yulissa Elkins, RAFA)1820 (Given - Provider: Yulissa Elkins, RAFA) 0013 (Given - Provider: Nicci Bassett RN)0608 (Given - Provider: Nicci Bassett, RAFA)1324 (Given - Provider: Yulissa Elkins RN) 650 mg, Oral, EVERY 6 HOURS SCHEDULED, F irst dose on Fri05/07/21 at 1800, Until Discontinued 1330 (MAY Unhold - Provider: Gabriela alba RN)1334 (Given - Provider: Gabriela Mena RN)1850 (Given - Provider: Prerna Youngblood RN) atenoloL (Tenormin) tablet 50 mg 0917 (MAY Hold - Prov ider: Admin Adt - Reason: Transfer to a Procedural area)1509 (MAY Unhold - Provider: Admin Adt)2100 (Not Given - Provider: Nicci Bassett RN - Reason: See comment - Comment: bp 98/53 hr 57) 211 (Given - Provider: Nicci Bassett RN) 50 mg, Oral, NIGHTLY, First dose (after last modification) on Fri05/08/21 at 0000, Until Discontinued, Routine docusate sodium (Colace) capsule 100 mg 0900 (Not Give n - Provider: Prerna Youngblood RN - Reason: Transfer to a Procedural area)0917 (MAY Hold - Provider: Admin Adt - Reason: Transfer to a Procedural area)1509 (MAY Unhold - Provider: Admin Adt)2114 (Given - Provider: Nicci Bassett RN) 0941 (Given - Provider: Yulissa Elkins, RAFA)2113 (Given - Provider: Nicci Bassett RN) 0945 (Given - Provider: Yulissa Elkins RN) 100 mg, Oral, 2 TIMES DAILY, First dose on Fri05/07/21 at 2100, Until Discontinued, Routine gabapentin (Neurontin) capsule 300 mg 0039 (Given - Pr ovider: Can Dwyer RN)0900 (Not Given - Provider: Prerna Youngblood RN - Reason: Transfer to a Procedural area)0917 (MAY Hold - Provider: Admin Adt - Reason: Transfer to a Procedural area) 0941 (Given - Provider: Yulissa Elkins RN)1542 (Given - Provider: Yulissa Elkins RN)2113 (Given - Provider: Nicci Bassett RN) 0945 (Given - Provider: Yulissa Elkins, RAFA)1500 (Due - Provider: Admin Adt) 300 mg, Oral, 3 TIMES DAILY, First dose on Fri05/08/21 at 0030, Until Discontinued, Routine 1509 (MAY Unhold - Provider: Admin Adt)1 608 (Given - Provider: Prerna Youngblood RN)2114 (Given - Provider: Nicci Bassett RN) lidocaine (Lidoderm) 5% patch 1 patch(Linked Group 1) 0917 (MAY Hold - Provider: Admin Adt - Reason: Transfer to a Procedural area)1112 (Not Given - Provider: Prerna Youngblood RN - Reason: Patient/family refused)1509 (MAY Unhold - Provider: Admin Adt) 1238 (Patch Applied - Provider: Yulissa Elkins RN) 1135 (Patch Applied - Provider: Yulissa Elkins RN) 1 patch, Transdermal, EVERY 24 HOURS, Fi rst dose on Fri05/07/21 at 1112, Until Discontinued, Apply patch(es) for 12 hours, and then remove for 12 hours., Routine lidocaine (Lidoderm) topical patch REMOVAL(Linked Grou p 1) 0917 (MAY Hold - Provider: Admin Adt - Reason: Transfer to a Procedural area)1509 (MAY Unhold - Provider: Admin Adt)2310 (Patch Not Removed (add comment) - Provider: Nicci Bassett RN - Comment: no patch) 2310 (Patch Removed - Provider: Nicci Bassett RN) Transdermal, EVERY 24 HOURS, First dose on Fri05/07/21 at 2310, Until Discontinued, Remove lidocaine 5% patch lisinopriL (Zestril) tablet 10 mg 0917 (MAY Hold - Pro vider: Admin Adt - Reason: Transfer to a Procedural area)1509 (MAY Unhold - Provider: Admin Adt)2100 (Not Given - Provider: Nicci Bassett RN - Reason: See comment - Comment: BP 98/53) 2112 (Given - Provider: Nicci Bassett RN) 10 mg, Oral, NIGHTLY, First dose (after last modification) on Fri05/08/21 at 0000, Until Discontinued, Routine methocarbamoL (Robaxin) tablet 500 mg () 0039 ( Given - Provider: Can Dwyer RN)0558 (Given - Provider: Donna Shipman RN)0917 (MAY Hold - Provider: Admin Adt - Reason: Transfer to a Procedural area) 0340 (Given - Provider: Nicci Bassett RN)0948 (Given - Provider: Yulissa Elkins RN) 500 mg, Oral, EVERY 6 HOURS, 8 doses, Fi rst dose on Fri05/07/21 at 1622, Last dose on Fri05/09/21 at 1022, Routine 1022 (Not Given - Provider: Prerna becerra RN - Reason: Transfer to a Procedural area)1247 (MAY Unhold - Provider: Elle Hackett RN)1607 (Given - Provider: Prerna Youngblood RN)2217 (Given - Provider: Nicci Bassett RN) pantoprazole EC (Protonix) tablet 40 mg 09 (MAY Hold - Provider: Admin Adt - Reason: Transfer to a Procedural area)1509 (MAY Unhold - Provider: Admin Adt)1515 (Not Given - Provider: Prerna Youngblood RN - Reason: Patient/family refused - Comment: wants to rest) 0941 (Given - Provider: Yulissa Elkins RN) 0945 (Given - Provider: Yulissa Elkins RN) 40 mg, Oral, DAILY, First dose on 11/19 at 0900, Until Discontinued, DO NOT CRUSH OR OPEN, Routine senna-docusate (Pericolace) 8.6-50 mg per tablet 2 tab let 00 (Not Given - Provider: Prerna Youngblood RN - Reason: Transfer to a Procedural area)0917 (MAY Hold - Provider: Admin Adt - Reason: Transfer to a Procedural area)1509 (MAY Unhold - Provider: Admin Adt)2113 (Given - Provider: Nicci Bassett RN) 0941 (Given - Provider: Yulissa Elkins, RAFA)2111 (Given - Provider: Nicci Bassett RN) 0945 (Given - Provider: Yulissa Elkins RN) 2 tablet, Oral, 2 TIMES DAILY, First dos e on Fri05/07/21 at 2100, Until Discontinued, Routine sodium chloride 0.9 % (flush) (BD PosiFlush Normal Sarabjit ine 0.9) flush 5 mL 2114 (Given - Provider: Nicci Bassett RN) 0943 (Given - Provider: Yulissa Elkins RN)2113 (Given - Provider: Nicci Bassett RN) 0948 (Given - Provider: Yulissa Elkins RN) 5 mL, Intravenous, 2 TIMES DAILY, First dose on Fri05/08/21 at 2100, Until Discontinued, Recovery (Recovery-Hospital Unit), Routine Continuous Medication Order 05/08/2021 05/09/2021 05/10/2021 sodium chloride 0.9% infusion (CANCELED) 0046 (New Bag - Provider: Can Dwyer RN)0917 (MAY Hold - Provider: Admin Adt - Reason: Transfer to a Procedural area)1247 (MAY Unhold - Provider: Elle Hackett RN)1258 (New Bag - Provider: Elle Hackett RN) 0606 (New Bag - Provider: Nicci yang RN)0710 (Stopped - Provider: Yulissa Elkins RN) 100 mL/hr, Intravenous, CONTINUOUS, Star ting on Fri05/08/21 at 0000, Until Fri05/09/21 at 0710 2120 (New Bag - Provider: Nicci Bassett RN) PRN Medication Order 05/08/2021 05/09/2021 05/10/2021 bisacodyL (Dulcolax) suppository 10 mg 0917 (MAY Hold - Provider: Admin Adt - Reason: Transfer to a Procedural area)1509 (MAY Unhold - Provider: Admin Adt) 10 mg, Rectal, DAILY PRN, Starting on Mo n 05/07/21 at 1616, Until Ghislaine 05/10/21 at 1743, Constipation, Administer if needed per patient's routine or if no bowel movement within 48 hours to achieve: (1) One bowel movement every 48 hours, AND (2) W ithout straining. If multiple PRN bowel medications ordered, start with magnesium hydroxide, then bisacodyl. Multiple medications may be given concomitantly for constipation., Routine cyclobenzaprine (Flexeril) tablet 10 mg 0917 (MAY Hold - Provider: Admin Adt - Reason: Transfer to a Procedural area)1247 (MAY Unhold - Provider: Elle Hackett RN) 0945 (Given - Provider: Mars Elkins RN) 10 mg, Oral, 3 TIMES DAILY PRN, Starting on 05/07/21 at 1616, Until Ghislaine 05/10/21 at 1743, Muscle spasms, Routine gelatin adsorbable (Gelfoam) sponge (CANCELED) 1018 (G iven - Provider: Nancy Fountain MD - Comment: Used PRN with thrombin during the case) ONCE PRN, Starting on 05/08/21 at 1018 , Until Ghislaine 05/10/21 at 1743, Intra- Operative (Intra-Procedure) HYDROmorphone (Dilaudid) (2 mg/mL) multi -dose injection solution 0.6 mg (CANCELED) 1255 (Given - Provider: Elle Hackett RN) 0.6 mg, Intravenous, EVERY 10 MIN PRN, S tarting on e 05/08/21 at 1201, Until 05/08/21 at 1429, Pain, For Moderate to Severe Pain (6-10 out of 10), Hold for respiratory rate less than 10 per minute. Ma ximum dose 4 mg over one hour including administrations in the OR. If multiple pain medications are ordered, start with HYDROmorphone or morphine and use fentaNYL for breakthrough pain, PACU Recovery, Routine labetaloL (Normodyne) (5 mg/mL) injection solution 10- 20 mg 0917 (MAY Hold - Provider: Admin Adt - Reason: Transfer to a Procedural area)1509 ([facility] Unhold - Provider: Admin Adt) 10-20 mg, Intravenous, EVERY 1 HOUR PRN, Starting on Fri05/07/21 at 1616, Until Ghislaine 05/10/21 at 1743, High Blood Pressure, Target systolic blood pressure (SBP) less than 160 mmHg. Administer 10 mg over 2 minutes. May repeat every 15 minutes if SBP remains above goal. If inadequate effect with second 10 mg dose then increase dose to 20 mg for subsequent dosing every 15 minutes. Dose not to exceed 300 mg per day. Hold if pulse is less than 50 beats per minute., Rou lito lidocaine (Xylocaine) 1% (10 mg/mL) injection 3 mg 3 mg (0.3 mL), Subcutaneous, ONCE PRN, 1 dose, Starting on Fri05/08/21 at 1938, Until Ghislaine 05/10/21 at 1743, for discomfort with PIV insertion, Recovery (Recovery-Hospital Unit), Routine lidocaine-EPINEPHrine (pf) (1.5% - 1:200,000) injectio n (CANCELED) 0958 (Given - Provider: Luis Fernando Luz MD) ONCE PRN, Starting on Fri05/08/21 at 0958 , Until Ghislaine 05/10/21 at 1743, Intra- Operative (Intra-Procedure), Routine magnesium citrate oral liquid 296 mL(Linked Group 2) 0 917 ([facility] Hold - Provider: Admin Adt - Reason: Transfer to a Procedural area)1509 ([facility] Unhold - Provider: Admin Adt) 296 mL, Oral, DAILY PRN, Starting on Fri05/07/21 at 1616, Until Ghislaine 05/10/21 at 1743, Constipation, Administer if no bowel movement within 48 hrs to achieve 1) one bowel movement at least every 48 hrs and 2) without straining. If multiple PRN b owel medications ordered, start with polyethylene glycol, then lactulose, then oral bisacodyl, then bisacodyl suppository, then magnesium citrate, then tap water enema. Multiple medications may be given concomitantly for constipation. May repeat times 1 in 4 hours., Routine magnesium citrate oral liquid 296 mL(Linked Group 2) 0 917 ([facility] Hold - Provider: Admin Adt - Reason: Transfer to a Procedural area)1509 ([facility] Unhold - Provider: Admin Adt) 296 mL, Per G Tube, DAILY PRN, Starting on 05/07/21 at 1616, Until Ghislaine 05/10/21 at 1743, Constipation, Administer if no bowel movement within 48 hrs to achieve 1) one bowel movement at least every 48 h rs and 2) without straining. If multiple PRN bowel medications ordered, start with polyethylene glycol, then lactulose, then oral bisacodyl, then bisacodyl suppository, then magnesium citrate, then tap water enema. Multiple medications may be given concomitantly for constipation. May repeat times 1 in 4 hours., Routine magnesium hydroxide (Milk of Magnesia) (240 mg/mL) ora l liquid 10 mL 0917 ([facility] Hold - Provider: Admin Adt - Reason: Transfer to a Procedural area)1509 ([facility] Unhold - Provider: Admin Adt) 10 mL, Oral, DAILY PRN, Starting on 05/07/21 at 1616, Until Ghislaine 05/10/21 at 1743, Constipation, Administer if needed per patient's routine or if no bowel movement within 48 hours to achieve: (1) One drew wel movement every 48 hours, AND (2) Wit hout straining. If multiple PRN bowel medications ordered, start with magnesium hydroxide, then bisacodyl. Multiple medications may be given concomitantly for constipation., Routine ondansetron (pf) (Zofran) (2 mg/mL) injection 4-8 mg(L inked Group 3) 0917 ([facility] Hold - Provider: Admin Adt - Reason: Transfer to a Procedural area)1509 ([facility] Unhold - Provider: Admin Adt) 4-8 mg, Intravenous, EVERY 8 HOURS PRN, Starting on 05/07/21 at 1616, Until Ghislaine 05/10/21 at 1743, Nausea, If multiple antiemetics are ordered, use ondansetron first, prochlorperazine second, and met aclopramide third. Start with 4mg and if ineffective in 30 minutes, give an additional 4mg ondansetron (Zofran) tablet 4-8 mg(Linked Group 3) 091 7 ([facility] Hold - Provider: Admin Adt - Reason: Transfer to a Procedural area)1509 ([facility] Unhold - Provider: Admin Adt) 4-8 mg, Oral, EVERY 8 HOURS PRN, Startin g on 05/07/21 at 1616, Until Ghislaine 05/10/21 at 1743, Nausea, Vomiting, If multiple antiemetics are ordered, use ondansetron first, prochlorperazine second, and metaclopramide third. PO Preferred. If patient unable to take PO, may give IV if ordered. Start with 4mg and if ineffective in 45 minutes, give an additional 4mg, Routine oxyCODONE (Roxicodone) tablet 10 mg(Linked Group 4) 00 39 (Given - Provider: Can Dwyer RN)0443 (Given - Provider: Donna Shipman, RAFA)0917 (MAY Hold - Provider: Admin Adt - Reason: Transfer to a Procedural area)1247 (MAY Unhold - Provider: Elle Hackett RN) 0040 (Given - Provider: Nicci Bassett RN)0941 (See Alternative - Provider: Yulissa Elkins RN)1404 (Given - Provider: Yulissa Elkins RN) 0019 (Given - Provider: Nicci Bassett RN)0434 (Given - Provider: Nicci Bassett RN) 10 mg, Oral, EVERY 4 HOURS PRN, Starting on Fri05/07/21 at 1618, Until Ghislaine 05/10/21 at 1743, Pain, severe pain (7-10), Routine 1335 (Given - Provider: Gabriela Mena RN) oxyCODONE (Roxicodone) tablet 5 mg(Linked Group 4) 003 9 (See Alternative - Provider: Can Dwyer RN)0443 (See Alternative - Provider: Donna Shipman RN)0917 (MAY Hold - Provider: Admin Adt - Reason: Transfer to a Procedural area)1247 (MAY Unhold - Provider: Elle Hackett RN) 0040 (See Alternative - Provider: Nicci Bassett RN)0941 (Given - Provider: Yulissa Elkins, RAFA)1404 (See Alternative - Provider: Yulissa Elkins RN) 0019 (See Alternative - Provider: Nicci Bassett RN)0434 (See Alternative - Provider: Nicci Bassett RN) 5 mg, Oral, EVERY 4 HOURS PRN, Starting on Fri05/07/21 at 1618, Until Ghislaine 05/10/21 at 1743, Pain, moderate pain (4-6), Routine 1335 (See Alternative - Provider: Gabriela Mena RN) polyethylene glycoL (Miralax) packet 17 g 0917 (MAY Ho ld - Provider: Admin Adt - Reason: Transfer to a Procedural area)1509 (MAY Unhold - Provider: Admin Adt) 17 g, Oral, DAILY PRN, Starting on Fri at 1616, Until Ghislaine 05/10/21 at 1743, Constipation, Administer if no bowel movement within 48 hours to achieve: (1) One bowel movement at least every 48 hours , AND (2) without straining. If multiple PRN bowel medications ordered, start with polyethylene glycol, then lactulose, then oral bisacodyl, then bisacodyl suppository, then magnesium citrate, then tap water enema. Multiple medications may be given concomitantly for constipation., Routine sodium chloride 0.9 % (flush) (BD PosiFlush Normal Saline 0.9) f lush 5-20 mL 5-20 mL, Intravenous, EVERY 1 MIN PRN, S tarting on Fri05/08/21 at 1938, Until Ghislaine 05/10/21 at 1743, flush, Flush pertains to all indwelling lines. Flush per protocol found in the job aid using the link pr ovided on this medication record., Recovery (Recovery-Hospital U nit), Routine thrombin (bovine) (Thrombin-Jmi) solution (CANCELED) 1 016 (Given - Provider: Nancy Fountain MD - Comment: Used PRN with gelfoam during the case) ONCE PRN, Starting on Fri05/08/21 at 1016 , Until Fri05/10/21 at 1743, Intra- Operative (Intra-Procedure) Linked Groups Order Group 1: lidocaine (Lidoderm) 5% patch 1 patchJump to med 1 patch, Transdermal, EVERY 24 HOURS, Fi rst dose on Fri05/07/21 at 1112, Until Discontinued
Apply patch(es) for 12 hours, and then remove for 12 hours.
Routine And lidocaine (Lidoderm) topical patch REMOVALJump to med Transdermal, EVERY 24 HOURS, First dose on Fri05/07/21 at 2310, Until Discontinued
Remove lidocaine 5% patch
Group 2: magnesium citrate oral liquid 296 mLJump to med 296 mL, Oral, DAILY PRN, Starting on Fri05/07/21 at 1616, Until Ghislaine 05/10/21 at 1743, Constipation
Administer if no bowel movement within 48 hrs to achieve 1) one bowel movement at leas t every 48 hrs and 2) without stra ining. If multiple PRN bowel medications ordered, start with polyethylene glycol, then lactulose, then oral bisacodyl, then bisa codyl suppository, then magnesium citrat e, then tap water enema. Multiple medications may be given concomitantly for constipation. May repeat times 1 in 4 hours.
Routine Or magnesium citrate oral liquid 296 mLJump to med 296 mL, Per G Tube, DAILY PRN, Starting on Fri05/07/21 at 1616, Until Ghislaine 05/10/21 at 1743, Constipation
Administer if no bowel movement within 48 hrs to achieve 1) one bowel movement a t least every 48 hrs and 2) withou t straining. If multiple PRN bowel medications ordered, start with polyethylene glycol, then lactulose, then oral bisacodyl, the n bisacodyl suppository, then magnesium citrate, then tap water enema. Multiple medications may be given concomitantly for constipation. May repeat times 1 in 4 hours.
Routine Group 3: ondansetron (Zofran) tablet 4-8 mgJump to med 4-8 mg, Oral, EVERY 8 HOURS PRN, Startin g on Fri05/07/21 at 1616, Until Ghislaine 05/10/21 at 1743, Nausea, Vomiting
If multiple antiemetics are ordered, use ondansetron first, prochlorperazine seco nd, and metaclopramide third. PO Preferred. If patient unable to take PO, may give IV if ordered. Start with 4mg and if ineffective in 45 minutes, give an additional 4mg
Routine Or ondansetron (pf) (Zofran) (2 mg/mL) injection 4-8 mgJump to med 4-8 mg, Intravenous, EVERY 8 HOURS PRN, Starting on 05/07/21 at 1616, Until Ghislaine 05/10/21 at 1743, Nausea
If multiple antiemetics are ordered, use ondansetron first, prochlorperazine second, and metaclopramide third. Start with 4mg and if ineffective in 30 minutes, give an additional 4mg
Group 4: oxyCODONE (Roxicodone) tablet 5 mgJump to med 5 mg, Oral, EVERY 4 HOURS PRN, Starting on 05/07/21 at 1618, Until Ghislaine 05/10/21 at 1743, Pain, moderate pain (4-6), Routine Or oxyCODONE (Roxicodone) tablet 10 mgJump to med 10 mg, Oral, EVERY 4 HOURS PRN, Starting on 05/07/21 at 1618, Until Ghislaine 05/10/21 at 1743, Pain, severe pain (7-10), Routine documented in this encounter Care Teams Plaster Helper Relationship Specialty Start Date End Date Patricio Gabriel MD PCP - General 02/20/[address] [place] [id number] documented as of this encounter
--- OUTSIDE RECORDS SUMMARY | 2021-10-15 18:57 | XMS_ITS | Encounter Summary ---
:1950 Author Organization [facility] [address] Care Team Providers Name Role Phone Patricio Gabriel MD Primary Care Provider Encounter Details Date Type Department Care Team Description 05/22/2021 Orders Only Neurosurgery at [facility] Cain Kelley PA [facility] [place] [address] NEUROSURGERY [phone] [place], [place] [address] (Wo rk) Social History Tobacco Use Types [...] 12/28/2021 Office Visit Neurosurgery Nancy Fountain MD [facility] [address] [place] [address] (Wo rk) documented as of this encounter Visit Diagnoses Not on filedocumented in this encounter Care Teams Assembler Tester Relationship Specialty Start Date End Date Patricio Gabriel MD PCP - General 02/20/10 [address] [place], [place] [id number] documented as of this encounter
--- OUTSIDE RECORDS SUMMARY | 2021-10-15 18:57 | XMS_ITS | Encounter Summary ---
:1950 Author Organization [facility] [place] [address] Care Team Providers Name Role Phone Patricio Gabriel MD Primary Care Provider Reason for Referral Surgical (Routine) - Specialty Diagnoses / Procedures Referred By Contact Refer red To Contact Diagnoses Radiculopathy of lumbar region Ronnie Alvarez MD Procedures TRANSFORAMINAL INJECTION [facility] [place] [address] Referral ID Status Reason Start Date Expiration Date Visits V isits Requested Authorized [id number] Consult, 02/16/2016 02/15/2017 1 1 Test & Treat Reason for Visit Reason Comments Back Pain RIGHT SIDE Consultation (Routine) - Closed Specialty Diagnoses / Procedures Referred By Contact Refer red To Contact Pain Management Diagnoses H/O lumbar discectomy Tawanda Douglass MD [facility] [address] [place] [address] [place] [address] [place] [address] Fax: Referral ID Status Reason Start Date Expiration Date Visits V isits Requested Authorized [id number] Closed Consult Only 01/18/2016 01/17/2017 1 1 Encounter Details Date Type Department Care Team Description 02/16/2016 Procedure visit Pain Management at Ronnie Alvarez Rad iculopathy [facility] MD Apryl lumbar region [facility] [id number] LAUREN LUONG [phone] [facility] Social History Tobacco Use Types Packs/Day Years Used Date Former Smoker 0.25 Quit: 05/30/19 14 Smokeless Tobacco: Never Used Sex Assigned at Date Recorded Not on file documented as of this encounter Last Filed Vital Signs Vital Sign Reading Time Taken Comments Blood Pressure 144/79 02/16/2016 11:55 AM EST Pulse 56 02/16/2016 11:55 AM EST Temperature - - Respiratory Rate 16 02/16/2016 11:35 AM EST Oxygen Saturation 98% 02/16/2016 11:55 AM EST Inhaled Oxygen Concentration - - Weight 70.3 kg (155 lb) 02/16/2016 11:35 AM EST Height 165.1 cm (5' 5) 02/16/2016 11:35 AM EST Body Mass Index 25.79 02/16/2016 11:35 AM EST documented in this encounter Patient Instructions Patient InstructionsTim Hutchins RN - 02/16/2016 11:50 AM EST Pain Management Center Discharge Instructions: You were seen by Dr. Ronnie Alvarez MD who performed right transforaminal injection. It is normal that the injection site will be sore for up to 48 hours. You may also experience mild stiffness in the joint near the injection site. [x] You may resume your normal activities: tomorrow. You may shower today. DO NOT tub bathe, use whirlpools, hot tubs or pool therapy for 2 days. Remove Band-Aid(s) later today/tomorrow. Do not drive until tomorrow. Use caution walking/climbing stairs as you may be unsteady on your feet. You may use your usual medications, including pain medications, as directed, unless otherwise instructed. You may use an ice pack as needed for the first 24 hours, on for 20 minutes then off for 20 minutes.Do not apply heat today. Attempt to empty your bladder 4-6 hours after your procedure. You received the following medications: Lidocaine, Omnipaque (contrast dye) and Dexamethasone SodiumPhosphate 10 mg. During regular business hours, please phone the Pain Management Center at for appointments or with any questions or if the following or other troubling symptoms develop: 1) Prolonged dizziness or weakness (more than 1 day). 2) Localized swelling, redness or drainage at the injection site(s). 3) Temperature of 101 degrees that lasts for more than 4 hours. After 5 PM or on weekends, call and ask for Pain Clinic provider on-call. If you are unable to reach the Pain Management Center and have a complication, please call your Primary Care Provider or proceed to your local emergency department. Tim Hutchins RN Special instructions documented in this encounter Progress Notes Samantha Munoz RN - 02/16/2016 11:50 AM EST Pre-Procedure Screening Questions: 1. Status: No 2. Patient states they have a day haul or farm charter bus driver to transport after procedure? Yes 3. Patient taking antibiotics at present? No 4. NPO per Pain Management Center protocol? No 5. Patient diabetic: No Patient routinely taking anticoagulants ? No Patient Vital Signs documented in Doc Flowsheets associated with this encounter. Patient Discharge Instructions were reviewed with patient and copy provided to patient. documented in this encounter Procedure Notes Ronnie Alvarez MD - 02/16/2016 11:50 AM ESTAssociated Order(s): TRANSFORAMINAL INJECTION Procedure(s): TRANSFORAMINAL INJECTION Pre-Procedure Diagnose(s): Radiculopathy of lumbar region LUMBAR / SACRAL TRANSFORAMINAL INJECTION Date of Service: 02/16/2016 Patient: Yesi Estrella Provider: MD Yesi REYNOSO has been referred to the Pain Management Center for a transforaminal nerve root block and steroid injection. Dx: right L5 radic Preoperative strength: right L5 5/5 Ms. Estrella was interviewed and the medical record reviewed. There were no medical, pharmacologic,radiographic or other structural contraindications to attempting fluoroscopically guided transforaminal nerve root block and epidural steroid injection. Risks and expected side effects as well as potential benefit of the procedure were reviewed withMs. Estrella , and her voiced concerns addressed. The printed consent form was signed and witnessed. Standard time-out procedure was performed. Ms. Estrella was placed in the prone position on the fluoroscopy table and automated blood pressurecuff and pulse oximeter applied. Fluoroscopy was utilized to identify the right neural foramen between L5 and 1 . A skin alirio was made for the needle insertion site. A Chlorhexadine prep was carried out, and sterile drapes were applied. Local anesthesia was achieved in the skin and subcutaneous tissues. A 22 gauge curved tip spinal needle was then inserted, advanced with fluoroscopic guidance into the neural foramen, confirmed on the lateral view. After negative aspiration, 1 ml of Omnipaque 240 wasinjected confirming position in A/P and lateral views. Several brief parathesias. After several needle placements, I was able to showed a good spread of dye transforaminally into the epidural space. There was no vascular update with contrast injection under continuous fluoroscopy. 10 mg of dexamethasone was injected. There was no unusual discomfort expressed by Ms. Estrella . The needle was withdrawn. The patient tolerated the procedure well. A Band-Aid was applied. Ms. Estrella's vital signs were stable throughout the procedure and were as recorded in nursing records. If given, dosages of intravenous drugs for anxiolysis and analgesia were documented in nursing records. Follow up plans and appointments were discussed with Ms. Estrella. Post procedure instruction was given as documented in nursing records and she was discharged in the care of an identified day haul or farm charter bus driver. COMMENTS: no complications. Explained tight area in foramen Resident performing procedure: none Attestation: Attestation: I performed this procedure without any resident involvement Ronnie Alvarez MD Attending Physician documented in this encounter Plan of Treatment Upcoming Encounters Date Type Specialty Care Team Description 12/28/2021 Office Visit Neurosurgery Nancy Fountain MD [facility] [place], [place] [address] (Wo rk) documented as of this encounter Procedures Procedure Name Priority Date/Time Associated Diagnosis Comme nts TRANSFORAMINAL Routine 02/16/2016 12:18 Radiculopathy of Resul ts for this INJECTION PM EST lumbar region procedure are in the results section. documented in this encounter Results TRANSFORAMINAL INJECTION (02/16/2016 12:18 PM EST) Narrative Ronnie Alvarez MD - 02/16/2016 12:18 PM EST Ronnie Alvarez MD ? 02/16/2016 12:18 PM LUMBAR / SACRAL TRANSFORAMINAL INJECTION Date of Service: ??02/16/2016 Patient: ??Yesi Estrella ?? MRN: ??[id number] Provider: ??RONNIE ALVAREZ MD Yesisandeep Abbasitony ??has been referred to the Pain Management Center for a transforaminal nerve root b lock and steroid injection. ?? Dx: right L5 radic Preoperative strength: right L5 ?08/02 Ms. Estrella was interviewed and the ak dical record reviewed. ?? There were no medical, pharmacologic, ra diographic or other structural contraindications to attempti ng fluoroscopically guided transforaminal nerve root block a nd epidural steroid injection. ??Risks and expected side eff ects as well as potential benefit of the procedure were reviewed w ithMs. Estrella , and her voiced concerns addressed. ??[facility] was signed and witnessed. ??Standard time-ou t procedure was performed. Ms. Estrella was placed in the prone po sition on the fluoroscopy table and automated blood pressure cuff and pulse oximeter applied. ??Fluoroscopy was utilized to i dentify the right neural foramen between L5 and 1 . ??A skin alirio was made for the needle insertion site. ??A Chlorhexadine prep w as carried out, and sterile drapes were applied. ??Local ane sthesia was achieved in the skin and subcutaneous tissues. ??A 2 2 gauge curved tip spinal needle was then inserted, advanced with fluoroscopic guidance into the neural foramen, confirmed on e lateral view. ??After negative aspiration, 1 ml of Omnipaque 2 40 was injected confirming position in A/P and lateral v iews. Several brief parathesias. After several needle placem ents, I was able to showed a good spread of dye transforamin ally into the epidural space. ??There was no vascular update wi contrast injection under continuous fluoroscopy. 10 mg of d examethasone was injected. There was no unusual discomfor t expressed by Ms. Estrella . ??The needle was withdrawn. The patient tolerated the procedure well. ??A Band-Aid was applied . Ms. Estrella's vital signs were stable throughout the procedure and were as recorded in nursing records. ??If given, dosages of intravenous drugs for anxiolysis and ericka lgesia were documented in nursing records. Follow up plans and appointments were di scussed with Ms. Estrella. ??Post procedure instruction was given as documented in nursing records and she was discharged i n the care of an identified day haul or farm charter bus driver. COMMENTS: no complications. Explained ti ght area in foramen Resident performing procedure: none Attestation: Attestation: I performed th is procedure without any resident involvement Ronnie Alvarez MD Attending Physician Ronnie Alvarez MD PROCEDURE/MINOR SURGICAL ORD ERABLES documented in this encounter Visit Diagnoses Diagnosis Radiculopathy of lumbar region Thoracic or lumbosacral neuritis or radi culitis, unspecified documented in this encounter Administered Medications Inactive Administered Medications - up to 3 most recent administrations Medication Order MAR Action Action Date Dose Rate Site dexamethasone(PF) (DECADRON) 10 Given 02/16/2016 12:15 PM EST 10 mg mg/mL injection 10 mg 10 mg, Epidural, ONCE, 1 dose, On Fri02/16/16 at 1215, Wasted 2mg, Routine iohexol (OMNIPAQUE) 240 mg/mL solution 2 mL Given 02/16/2016 12:15 PM EST 2 mLs 2 mL, Epidural, ONCE, 1 dose, On Fri02/16/16 at 1215, Wasted 48 ml, Routine documented in this encounter Care Teams Agriculture Research Director Relationship Specialty Start Date End Date Patricio Gabriel MD PCP - General 02/20/[address] [place] [id number] documented as of this encounter
--- OUTSIDE RECORDS SUMMARY | 2021-10-15 18:57 | XMS_ITS | Encounter Summary ---
:1950 Author Organization [facility] [place] [address] Care Team Providers Name Role Phone Patricio Gabriel MD Primary Care Provider Encounter Details Date Type Department Care Team Description 02/15/2016 Telephone Pain Management at [facility] Alyssa Banks, [place] [address] Social History Tobacco Use Types Packs/Day Years Used Date Former Smoker 0.25 Quit: 05/30/19 14 Smokeless Tobacco: Never Used Sex Assigned at Date Recorded Not on file documented as of this encounter Miscellaneous Notes Telephone Encounter - Alyssa Banks, SALES REPRESENTATIVE [employer] - 02/15/2016 12:09 PM EST Yesi Estrella :1950 Message left: I left a message with Her Ms. Estrella at 12:09 PM regarding her upcoming Right transforaminal injection with Dr. Ronnie Alvarez MD. Message included the followin. Patient instructed to arrive at 11:20 (30 minutes prior to procedure start time) on 02-16-16 (date of procedure) with their crude oil driver. 2. Following instructions left in the message: - Bring Updated list of medications including dosage and reason for taking. - Call the Pain Clinic Nurse at for: ~Procedure instructions. ~If you are taking antibiotics. ~If you have any signs or symptoms of infection, cold or flu. ~If you have any skin breakdown (rashes, cysts, or abscess.) ~If you are taking anticoagulants / blood thinners (Plavix, Pletal, Lovenox, Coumadin, etc). ~If you had any steroid injections anywhere in your body within the last two weeks? Alyssa Banks LPN documented in this encounter Plan of Treatment Upcoming Encounters Date Type Specialty Care Team Description 12/28/2021 Office Visit Neurosurgery Nancy Fountain MD [facility] NEUR[facility]GERY [place], [place] [address] (Wo rk) documented as of this encounter Visit Diagnoses Not on filedocumented in this encounter Care Teams Casting Agent Relationship Specialty Start Date End Date Patricio Gabriel MD PCP - General 02/20/[address] [place] [id number] documented as of this encounter
--- OUTSIDE RECORDS SUMMARY | 2021-10-15 18:57 | XMS_ITS | Encounter Summary ---
:1950 Author Organization [facility] [place] [address] Care Team Providers Name Role Phone Patricio Gabriel MD Primary Care Provider Reason for Visit Reason Comments Back Pain Leg Pain right Auth/Cert Specialty Diagnoses / Procedures Referred By Contact Refer red To Contact Diagnoses Back pain Procedures na Referral ID Status Reason Start Date Expiration Date Visits Requ ested Visits Authorized [id number] 1 1 Encounter Details Date Type Department Care Team Description 05/07/2021 - Hospital Encounter 1 Fer Terrazas MD [facility] [place] [address] Back pain (Primary Dx); 05/10/2021 [facility] Esthela Weaver MD [facility] [place] [address] Radiculopathy of lumbar region; Hospital S/P Revision Right L4-S1 dec ompression, Right L4-5 diskectomy - 09/14/13 ([place]); [facility] Right lum bar radiculopathy with L4-L[place] [address] Social History Tobacco Use Types Packs/Day Years Used Date Former Smoker 0.25 Quit: 05/30/19 14 Smokeless Tobacco: Never Used Alcohol Use Standard Drinks/Week Comments Yes 0 (1 standard drink = 0.6 oz pure alcoho l) Sex Assigned at Date Recorded Not on file documented as of this encounter Last Filed Vital Signs Vital Sign Reading Time Taken Comments Blood Pressure 155/80 05/10/2021 12:00 PM EST Pulse 58 05/10/2021 12:00 PM EST Temperature 36.6 ??C (97.9 ??F) 05/10/2021 12:00 PM EST Respiratory Rate 14 05/10/2021 12:00 PM EST Oxygen Saturation 96% 05/10/2021 12:00 PM EST Inhaled Oxygen Concentration - - [...] and micro discectomy. Incision was closed with hitesh (due to be removed 05/22/21). There were [...] Not Detected Not Detected SARS-Cov-2 RNA Source BALLISTICS TEACHER Swab Studies: Results for orders placed or [...] who have questions please contact the health neurocritical care physician that requested your imaging first. Pending Studies and Lab Data: N/A Discharge Condition: Stable Discharge to: Home with VNA Future Appointments and Orders Future Orders Complete By Expires Referral to Home Health - at DISCHARGE [[id number] CPT(R)] As directed Process Instructions: Scheduling Instructions: Comments: DOCUMENTATION FOR VNA SERVICES (INCLUDING THOSE PATIENTS WITH MEDICARE COVERAGE REQUIRING HOME VNA SERVICES AND/OR HOSPICE SERVICES) PATIENT'S LOCATION: Yesi Estrella [address] [place] [id number] (home) Cell: Telephone Information: Official Court Reporter's Name: Marcus In discussion with the attending physician, it is certified that this patient is under their care and that they, or a Nurse Practitioner,Clinical Nurse specialist or Physician Director Of Architecture who is working directly with them, had [...] for managing ADL's. [facility] PHONE: [phone] FAX: [phone] Start of care: FOR MEDICARE ONLY: In [...] Patricio Gabriel MD [address] / [facility] [address] All A agencies which cover the area of patient's residence have been reviewed, either verbally or in writing, and patient/family have chosen the home health care agency noted Questions: Agency name and contact information: [facility] Patient location post discharge: [facility] What services are requested: Physical Therapy Occupational Therapy Start date: Responsible MD post discharge contact info: PCP Walker standard [[id number] Custom] As directed Process Instructions: Scheduling Instructions: Comments: Yesi Estrella [address] [facility] [phone] (home) Telephone Information: Diagnosis: deconditioning with Unsteady gait, back pain s/p hemilaminectomy Significant weakness, ataxia or gait abnormality Patient's: Hgt: Ht Readings from Last 1 Encounters: 05/07/21 : 165.1 cm (5' 5) ? Wgt: Wt Readings from Last 1 Encounters: 05/07/21 : 65.7 kg (144 lb 12.8 oz) VENDOR: [facility] Located @ [place], [place] Ordering: Front wheel walker Deliver to [...] antiplatelet, anticoagulant, and non-steroidal anti-inflammatory (NSAIDs)drugs. Common uenb-tkf-tvxhxsd medications which should be avoided include Aspirin, [...] to pass. These medications can be obtained dcke-nam-dviutnr and their use is recommended on an [...] retention Constipation not relieved by diet and/or npyt-xfj-wehxcus stool softeners and laxatives Nausea/vomiting (upset stomach) [...] Primary Care Provider or with the Neurosurgery BALLISTICS TEACHER/RN. Your hitesh may also be removed at rehab. Appointments: Please follow up in the Neurosurgery Clinic in 4-[address] Fountain. Please call the NeurosurgeryOffice at [phone] if you do not receive a scheduled appointment within two weeks. Follow-up Imaging: None HOW TO REACH NEUROSURGERY Office Hours: Friday through Friday, 8am-5pm. Call . On weekends or after office hours: Call [phone] and ask the center machine set up operator to page the NeurosurgeryResident/Advanced Practice Provider chief deputy coroner. IMPORTANT PHONE NUMBERS: Outpatient Nurse (Robyn Cochran) Inpatient Nurses Neurosurgical Resident/Advanced Practice Provider On-Call (after 5pm or before 8am) Neurosurgery offices (Friday through Friday between 8am-5pm): Adult Neurosurgery Dr. Luigi Ernandez Pediatric Neurosurgery Dr. Harika Nelson Advanced Practice Providers Elle Morgan, Nurse Practitioner (outpatient) Génesis Parekh, Physician Director Of Architecture (inpatient) Abiola Saxena, Nurse Practitioner (inpatient) Sima Diaz, Physician Director Of Architecture (inpatient) Sima Reddy, Physician Director Of Architecture (inpatient) Brenda Davidson, Nurse Practitioner (outpatient: vascular) Daysi Jeffery, Physician Director Of Architecture (outpatient: spine) Abhishek Mckinney, Nurse Practitioner (inpatient/outpatient) Cain Kelley, Physician Director Of Architecture (outpatient) Fabiana Magaña, Nurse Practitioner (outpatient: neuro-oncology) HOW TO REACH NEUROSURGERY Office Hours (Friday through Friday 8am-5pm): Call On weekends or after office hours (after 5pm or before 8am): Call [phone] and ask the center machine set up operator to page the Neurosurgery Resident/Advanced Practice Provider chief deputy coroner. *Your surgeon may not be rewinder operator (especially after office hours or on the weekend) so be ready to tell about yourself and your surgery when you call. Neurosurgery Providers Adult Neurosurgery Dr. Luigi Ernandez Pediatric Neurosurgery Dr. Harika Nelson Advanced Practice Providers Elle Morgan, Nurse Practitioner (outpatient) Génesis Parekh, Physician Director Of Architecture (inpatient) Abiola Saxena, Nurse Practitioner (inpatient) Sima Diaz Physician Director Of Architecture (inpatient) Piyush Voss, Nurse Practitioner (outpatient: pediatric) Sima Reddy, Physician Director Of Architecture (inpatient) Brenda Davidson, Nurse Practitioner (outpatient: vascular) Daysi Jeffery, Physician Director Of Architecture (outpatient: spine) Abhishek Mckinney, Nurse Practitioner (inpatient/outpatient) Cain Kelley, Physician Director Of Architecture (outpatient) Fabiana Magaña, Nurse Practitioner (outpatient: neuro-oncology) Outpatient Nurses Lupe Jiménez APRN 05/10/2021 documented in this encounter Discharge Instructions Patient InstructionsNabil Jiménezjeremy Sanchez, AIR PUMPER - 05/09/2021 7:14 AM EST SPINAL SURGERY DISCHARGE INSTRUCTIONS PRESCRIPTION INSTRUCTIONS: Please see the medication reconciliation list on this discharge summary for a current list of your medications. Stop the use of blood thinning medications until instructed otherwise by your surgical team. This includes medications known as antiplatelet, anticoagulant, and non-steroidal anti-inflammatory (NSAIDs)drugs. Common oqsv-tlx-hjhjfds medications which should be avoided include Aspirin, [...] to pass. These medications can be obtained xbuf-hou-rrhurgu and their use is recommended on an [...] retention Constipation not relieved by diet and/or athy-nww-iqrtlwx stool softeners and laxatives Nausea/vomiting (upset stomach) [...] Primary Care Provider or with the Neurosurgery BALLISTICS TEACHER/RN. Your hitesh may also be removed at rehab. Appointments: Please follow up in the Neurosurgery Clinic in 4-[address] Fountain. Please call the NeurosurgeryOffice at [phone] if you do not receive a scheduled appointment within two weeks. Follow-up Imaging: None HOW TO REACH NEUROSURGERY Office Hours: Friday through Friday, 8am-5pm. Call . On weekends or after office hours: Call [phone] and ask the center machine set up operator to page the NeurosurgeryResident/Advanced Practice Provider chief deputy coroner. IMPORTANT PHONE NUMBERS: Outpatient Nurse (Robyn Cochran) Inpatient Nurses Neurosurgical Resident/Advanced Practice Provider On-Call (after 5pm or before 8am) Neurosurgery offices (Friday through Jacky between 8am-5pm): Adult Neurosurgery Dr. Luigi Ernandez Pediatric Neurosurgery Dr. Harika Nelson Advanced Practice Providers Elle Morgan, Nurse Practitioner (outpatient) Génesis Parekh, Physician Director Of Architecture (inpatient) Abiola Saxena, Nurse Practitioner (inpatient) Sima Diaz, Physician Director Of Architecture (inpatient) Sima Reddy, Physician Director Of Architecture (inpatient) Brenda Davidson, Nurse Practitioner (outpatient: vascular) Daysi Jeffery, Physician Director Of Architecture (outpatient: spine) Abhishek Mckinney, Nurse Practitioner (inpatient/outpatient) Cain Kelley, Physician Director Of Architecture (outpatient) Fabiana Magaña, Nurse Practitioner (outpatient: neuro-oncology) [...] leg. ?? This PT brought patient to [facility] in wheelchair to meet with . ?? [...] felt comfortable with her status. Assessment: Yesi Jc Estrella was seen today for physical therapy treatment session for continuationof POC. Pt getting ready to d/c; reviewed stairs and safety with mobility with patient and then withher when she was brought to the [facility] for d/c. Pt needs a walker and [...] 18 ; Billing Code: functional mobility ALBINO ORTEGA, PT Pager:[phone] Physical Therapy Inpatient Rehabilitation Department Albino Ortega, PT - 05/09/2021 3:34 PM EST Physical [...] LUMBAR performed by Tawanda Douglass MD at [facility] MAIN OR ??? PRO DOMINIQUE W/O FACETEC FORAMOT/DSKC 04/01 VRT SEG, LUMBAR Midline 05/08/2021 LAMINECTOMY LUMBAR, DECOMPRESSION, 1 OR 2 SEGMENTS (WRVU 16.43) performed by Nancy Fountain MD at [facility] MAIN OR ??? PRO MICROSURG TECHNIQUES, REQ OPER MICROSCOPE N/A 05/08/2021 MICROSCOPE USE (WRVU 3.46) performed by Nancy Fountain MD at [facility] MAIN OR ??? PRO REDO EXCIS LUMBAR DISC 09/14/2013 LAMINOTOMY W\DECOMPRESSION, ONE LVL, LUMBAR ,RE-EXPL (INCLDNG PART. 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 Made plan to follow up later after her next pain medication dose. RN aware of pt's status. Albino Ortega PT Beeper# [phone] Joy Ceron OT - 05/09/2021 9:04 AM EST Occupational [...] LUMBAR performed by Tawanda Douglass MD at [facility] MAIN OR ??? PRO REDO EXCIS LUMBAR DISC 09/14/2013 LAMINOTOMY W\DECOMPRESSION, ONE LVL, LUMBAR ,RE-EXPL (INCLDNG PART. 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 Communication o WFL ??? Musculoskeletal o [...] been seen for occupational therapy evaluation. Yesi Estrella presents with the following performance skill deficits [...] of functional outcome. Joy Ceron OTR/L Pager [phone] Occupational Therapy Rehabilitation Department Masha Grayson MD [...] reading. Pleasant, conversant NEURO: AO4 MOTOR: RUE: 5 LUE: 5 RLE: HF/KE/KF/DF/EHL 08/02; PF 2/5 Numbness down the posterolateral leg [...] anticoagulation/antiplatelet - Carb control diet PLEASE PAGE [phone] WITH QUESTIONS Active Hospital Problems Diagnosis ??? [...] INTERVAL HX/ROS: POC MEDICATIONS: Scheduled Meds: ??? [May] lidocaine 1 patch Transdermal Q24H And ??? [May] lidocaine 1 patch Transdermal Q24H ??? [May] senna-docusate 2 tablet Oral BID ??? methocarbamoL 500 mg Oral Q6H ??? [MAY Hold] docusate sodium 100 mg Oral BID ??? [MAY Hold] acetaminophen 650 mg Oral Q6H VIOLET ??? [MAY Hold] gabapentin 300 mg Oral TID ??? [MAY Hold] pantoprazole EC 40 mg Oral Daily ??? [May] atenoloL 50 mg Oral Nightly ??? [May] lisinopriL 10 mg Oral Nightly Continuous Infusions: ??? sodium chloride 0.9% infusion 100 mL/hr Intravenous Continuous ### PRN Meds: thrombin (bovine), gelatin adsorbable, lidocaine-EPINEPHrine, naloxone, HYDROmorphone OR HYDROmorphone, ketorolac, [May] bisacodyL, [May] magnesium hydroxide, [May] polyethylene glycoL, [May] magnesium citrate OR [MAY Hold] magnesium citrate, [May] ondansetron OR [May] ondansetron, cyclobenzaprine, [May] labetaloL, oxyCODONE OR oxyCODONE EXAM: Vitals: Temp: [...] SCDs, Hold anticoagulation/antiplatelet - ADAT PLEASE PAGE [phone] WITH QUESTIONS Active Hospital Problems Diagnosis ??? [...] HNP Luis Fernando Luz MD 05/08/2021 Gabriela Collins RN - 05/08/2021 12:20 PM EST Pt [...] water. Report given to RAFA Graff. Albino Dean PT - 05/08/2021 11:10 AM EST Physical Therapy Note PT referral received, pt in the OR at this time. Please update activity orders post procedure as appropriate. Thanks. Albino Ortega, PT Beeper# [phone] Joy Newman OT - 05/08/2021 9:06 AM EST Occupational Therapy Note Document Type: contact Total Minutes, Occupational Therapy: 0 Reason: 05/08/21 0903 Evaluation & Treatment Document Type contact Total Minutes, Occupational Therapy 0 Comment, Session Not Performed Attempted to see pt for OT evaluation. However, pt was leaving for OR. Will follow-up and complete OT evaluation when appropriate. Pager: [phone] Joy Ceron OTR/L 05/08/2021 Occupational Therapy Rehabilitation [...] Weight: 65.7 kg (144 lb 12.8 oz) (05/07/21 2239) BMI (Calculated): 24.96 BMI Classification: Normal Weight [...] (Give Meds) - OR today PLEASE PAGE [phone] WITH QUESTIONS Active Hospital Problems Diagnosis ??? [...] HNP Luis Fernando Luz MD 05/08/2021 Can Dwyer RN - 05/08/2021 1:50 AM EST OUTCOME [...] Grayson MD - 05/07/2021 5:31 PM EST [facility] NEUROSURGERY H&P Date: 05/07/2021 ID: Yesi Estrella, 71 y.o. female : 1950 Admission Date: 05/07/2021 PCP: Patricio Gabriel MD Consult information: Date & Time: 05/07/2021 5:32 PM Referring Service: Emergency Medicine Neurosurgery Attending: Nancy Fountain MD Place of Consult: [facility] ED07 CC/Reason for consult: R leg pain, [...] Thoracic or lumbosacral neuritis or radiculitis, unspecified [id number] ??? S/P Revision Right L4-S1 decompression, Right [...] LUMBAR performed by Tawanda Douglass MD at [facility] MAIN OR ??? PRO REDO EXCIS LUMBAR DISC 09/14/2013 LAMINOTOMY W\DECOMPRESSION, ONE LVL, LUMBAR ,RE-EXPL (INCLDNG PART. FACETECTOMY, FORAMINOTOMY &\OR DISCECTOMY) performed by Tawanda Douglass MD at [facility] MAIN OR Medications: No current facility-administered [...] MD. Masha Grayson MD 05/07/2021 5:32 PM [facility] Neurosurgery Inpatient Pager: [phone] Personal Pager: [phone] Active Hospital Problems Diagnosis ??? Back pain [...] OUTCOME EVALUATION: Plan of Care - Yulissa Elikns RN - 05/09/2021 6:05 PM EST OUTCOME [...] COVID test: Lab Results Component Value Date [id number] Not Detected 05/07/2021 Past medical History: Past [...] Current DME: none Home Address confirmed as: [address] [place] [address] Social & Family Supports: All names listed below confirmed with patient as current and correct NO: [phone] is incorrect: Extended Emergency Contact Information Primary Emergency Contact: Marcus Estrella [facility] [place] Relation: Spouse Patient ceel Number: [phone] Current Care Provided by: self Provides Primary [...] alcohol?: No Health/Prescription Coverage: Primary Insurance: MEDICARE [employer] Payor: MEDICARE [employer] / Plan: MEDICARE RAILROAD PART A&B / Product Type: *No Product type* / Secondary Insurance: AARP SUPPLEMENT Prescription Coverage: Yes Preferred Pharmacy: [facility] - [place], [place] - [address] [facility] [address] [facility] [place] - [address] [place] [address] [facility] [address] - [place], [place] - [address] [address] [place] [address] [place] Status: Patient is a : No Primary Care Provider: Patricoi Gabriel MD [phone] Patient/Caregiver Goals of Treatment: return home with [...] where referrals are placed. Provided patient with [facility] Star Quality Rating for Home care hand out. Patient requests referral to [facility]. PHONE: [phone] FAX: [phone] Expected date of discharge: 05/10/21. Referral routed to the Hand Sample Maker for matching with agency/vendor and to provide [...] planning. Lan Nixon RN BSN CM Neurology Sociology ProfessorFreight Representative of Care Management Pager [phone] Plan of Care - Nicci Bassett RN [...] Fountain MD - 05/08/2021 1:10 PM EST [facility] Operative Note Patient Name: Yesi Estrella : [id number] MR#: [id number] Case Date: 05/08/2021 Surgeon: Surgeon(s) and Role: [...] 5 lamina using a curette. A 4 [place] was placed in this location, and repeat x-ray was made with the C arm to confirm the level. We also took an x-ray with an Gopi under the lamina of L4. Once we [...] Once were satisfied with her discectomy, a Orange was used to feel all around the [...] Operative Note Patient Name: Yesi Estrella : [id number] MR#: [id number] Case Date: 05/08/2021 Surgeon: Surgeon(s) and Role: [...] 12/28/2021 Office Visit Neurosurgery Nancy Fountain MD [facility] [address] [place], [place] [address] (Wo rk) documented as of this encounter [...] Clean Catch Urine (05/10/2021 8:27 AM EST) [facility] Method Time Signature Urine Culture No growth KAYLAH RODRIGUEZ (Less than [facility] 1,000 [facility] cfu/ml). LABORATORY Specimen Anatomical Collection Method Collection Time Receive d Time (Source) Location / / Volume Laterality Clean Catch 05/10/2021 8:27 AM 8:49 Urine EST AM EST Resulting Agency Comment Spec In Lab Nancy Fountain MD MICROBIOLOGY - GENERAL ORDER IZZY Performing Organization Address City/State/ZIP Code [place] [address] COVID-19 PCR (05/10/2021 6:04 AM EST) [facility] Method Time Signature SARS-CoV-2 Not Detected Not Detected KAYLAH RNA [facility] LABORATORY Comment: This result should be interpreted [...] diagnosis of COVID-19 is performed using the [employer] S-CoV-2 Assay as authorized by the FDA Emergency Use Authorization (EUA). This EUA assay is intended for In-vitro Diagnostic (IVD) use with respiratory sp ecimens such as nasopharyngeal swabs collected from individuals during the [place] phase of infection. This assay is performed based on the instructions for use provided by [employer] and additional guidance provided by CDC and FDA. Testing is performed in the Clinical Genomics and Advanced Technolog y Laboratory within the Department of Pathology and Laboratory Medicine at [facility], certified under the Clinical Laboratory Improvement Amendments [...] is infected. As required or requested by [facility], positive specimens may be sent for additional [...] clinical management guidance information are available at e CDC Coronavirus Disease 2019 (COVID-19) webpage under Information fo r Healthcare Professionals (https://www.cdc.gov/coronavirus/2019-nc ov/hcp/index.html) Additional information about this and ot her EUA tests can be found in provider and patient fact sheets at the following FDA website: https://www.fda.gov/medical-devices/ysbiwfksjgx-iyimwjv-5246-fqoqr-54-qhlhzfgke- yxt-rmzryyrqsdwjhj-pktrvhm-devices/mycfo-rzlcplchszv-bfxr SARS-Cov-2 RNA Source BALLISTICS TEACHER Swab [facility] LABORATORY Specimen (Source) Anatomical Collection Method Collection Time Re ceived Time Location / / Volume Laterality Nasopharyngeal Swab 05/10/2021 6:04 05/10 AM EST 8:05 AM EST Comment: Symptoms->Surveillance Resulting Agency Comment Spec In Lab Nancy Fountain MD MICROBIOLOGY - GENERAL ORDER IZZY Performing Organization Address City/State/[place] [address] (ABNORMAL) Differential, Automated (05/10/2021 6:03 AM EST) [facility] Method Time Signature Neutrophils % 74.8 % [facility] LABORATORY Neutr Abs (ANC) 8.10 (H) 1.70 - [facility] 6.10 [facility] x10(3)/[facility] LABORATORY Lymphocytes % 16.5 % [facility] LABORATORY Lymphocytes Abs 1.8 0.9 - 3.2 [facility] x10(3)/[facility] LABORATORY Monocytes % 7.4 % [facility] LABORATORY Monocyte Abs 0.8 0.3 - 0.9 [facility] x10(3)/[facility] LABORATORY Eosinophils % 0.6 % [facility] LABORATORY Eosinophils Abs 0.1 0.0 - 0.4 [facility] x10(3)/[facility] LABORATORY Basophils % 0.2 % [facility] LABORATORY Basophils Abs 0.0 0.0 - 0.1 [facility] x10(3)/[facility] LABORATORY Immature Gran % 0.50 % [facility] LABORATORY Comment: Immature granulocytes(IG's)percentage an d absolute count will include metamyelocytes, myelocytes, and promyelo cytes. Blood smears from CBCs yielding IG's will be scanned manually for concor dance. If this scan disagrees with the automated IG or if promyelocytes are not ed, a manual differential will be performed. Denise Gran Abs 0.05 (H) 0.00 - 0.04 x10(3)/[facility] LABORATORY Specimen Anatomical Collection Method Collection Time Receive d Time (Source) Location / / Volume Laterality Blood 05/10/2021 6:03 AM 6:21 EST AM EST Resulting Agency Comment Spec In Lab Masha Grayson MD HEMATOLOGY ORDERABLES Performing Organization Address City/State/[place] [address] (ABNORMAL) Hemogram (05/10/2021 6:03 AM EST) Analysis Performed At Patho logist Time Signature WBC 10.8 (H) 4.0 - 9.5 [facility] x10(3)/[facility] LABORATORY RBC 3.57 (L) 4.00 - [facility] 5.21 [facility] x10(6)/[facility] LABORATORY Hemoglobin 11.8 11.7 - [facility] 15.5 g/dL [facility] LABORATORY Hematocrit 34.3 (L) 35.7 - [facility] 45.8 % [facility] LABORATORY MCV 96.1 (H) 82.6 - [facility] 94.4 fL [facility] LABORATORY MCH 33.1 (H) 27.1 - [facility] 32.0 pg [facility] LABORATORY MCHC 34.4 31.7 - [facility] 35.0 g/dL [facility] LABORATORY Platelets 174 145 - 357 [facility] x10(3)/[facility] LABORATORY RDWSD 47.1 (H) 37.0 - [facility] 46.0 [facility] LABORATORY RDWCV 13.3 11.5 - [facility] 14.1 % [facility] LABORATORY MPV 10.3 7.6 - 12.9 [facility] LABORATORY nRBC % Auto 0.0 % [facility] LAB[facility] nRBC Abs Auto 0.000 0.000 - [facility] 0.000 [facility] x10(3)/[facility] LABORATORY Specimen Anatomical Collection Method Collection Time Receive d Time (Source) Location / / Volume Laterality Blood 05/10/2021 6:03 AM 6:21 EST AM EST Resulting Agency Comment Spec In Lab Masha Grayson MD HEMATOLOGY ORDERABLES Performing Organization Address City/State/[place] [address] Basic Metabolic Panel (non-fasting) (05/10/2021 6:03 AM EST) P athologist Signature Glucose Lvl 180 65 - 199 [facility] mg/dL [facility] Comment: Diabetes: >=200 mg/dL plus symp toms BUN 12 8 - 18 mg/dL [facility] LABOR[facility]ORY Creatinine 0.70 0.70 - 1.20 mg/dL [facility] LABOR[facility] Sodium 139 135 - 145 mmol/L [facility] Potassium 3.9 3.5 - 5.0 mmol/L [facility] Comment: Please note: ??Patients with WBC >100,00 0 may have falsely elevated Potassium levels. ??For accurate Potassium quantif ication in these patients send serum separator tube (gold top) for subsequent determinations. ??Contact the Clinical Chemistry Laboratory if there are any qu estions. Chloride 103 98 - 107 mmol/L [facility] LABOR[facility] CO2 26 22 - 31 mmol/L [facility] LAB[facility] Anion Gap 10 5 - 15 mmol/L [facility] LAB[facility]ORY Calcium 8.8 8.5 - 10.5 mg/dL [facility] Estimated GFR 87 >=60 mL/min/1.73 m?? [facility] Comment: This patient? s estimated [...] Organization Address City/State/ZIP Code Phon e Number [place] [phone] HOSP[address] LAB[address]ATORY Drive (ABNORMAL) Differential, Automated (05/09/2021 5:55 AM EST) [facility] gist Method Time Signature Neutrophils % 84.6 % [facility] LABOR[facility]ORY Neutr Abs (ANC) 11.14 (H) 1.70 - [facility] 6.10 [facility] x10(3)/[facility] L LABORATORY Lymphocytes % 8.7 % [facility] LABORATORY Lymphocytes Abs 1.2 0.9 - 3.2 [facility] x10(3)/[facility] LABORATORY Monocytes % 6.0 % [facility] LABORATORY Monocyte Abs 0.8 0.3 - 0.9 [facility] x10(3)/[facility] LABORATORY Eosinophils % 0.0 % [facility] LAB[facility] Eosinophils Abs 0.0 0.0 - 0.4 [facility] x10(3)/[facility] LABORATORY Basophils % 0.1 % [facility] Basophils Abs 0.0 0.0 - 0.1 [facility] x10(3)/[facility] LABORATORY Immature Gran % 0.60 % [facility] LABORATORY Comment: Immature granulocytes(IG's)percentage an d absolute count will include metamyelocytes, myelocytes, and promyelo cytes. Blood smears from CBCs yielding IG's will be scanned manually for concor dance. If this scan disagrees with the automated IG or if promyelocytes are not ed, a manual differential will be performed. Denise Gran Abs 0.08 (H) 0.00 - 0.04 x10(3)/[facility] LABORATORY Specimen Anatomical Collection Method Collection Time Receive d Time (Source) Location / / Volume Laterality Blood 05/09/2021 5:55 AM 6:16 EST AM EST Resulting Agency Comment Spec In Lab Masha Grayson MD HEMATOLOGY ORDERABLES Performing Organization Address City/State/ZIP Code Phon e Number [place] [phone] HOSPITAL LABORATORY Drive (ABNORMAL) Hemogram (05/09/2021 5:55 AM EST) Analysis Performed At Patho logist Time Signature WBC 13.2 (H) 4.0 - 9.5 [facility] x10(3)/[facility] LABORATORY RBC 3.84 (L) 4.00 - [facility] 5.21 [facility] x10(6)/[facility] LABORATORY Hemoglobin 12.8 11.7 - [facility] 15.5 g/dL [facility] Hematocrit 36.4 35.7 - [facility] 45.8 % [facility] MCV 94.8 (H) 82.6 - [facility] 94.4 [facility] LABORATORY MCH 33.3 (H) 27.1 - [facility] JENNIFER 32.0 pg [facility] MCHC 35.2 (H) 31.7 - [facility] 35.0 g/dL [facility] Platelets 184 145 - 357 [facility] x10(3)/[facility] LABORATORY RDWSD 44.3 37.0 - [facility] JENNIFER 46.0 [facility] LABORATORY RDWCV 12.9 11.5 - [facility] 14.1 % [facility] MPV 10.3 7.6 - 12.9 [facility] LABORATORY nRBC % Auto 0.0 % [facility] LABORATORY nRBC Abs Auto 0.000 0.000 - [facility] 0.000 [facility] x10(3)/[facility] LABORATORY Specimen Anatomical Collection Method Collection Time Receive d Time (Source) Location / / Volume Laterality Blood 05/09/2021 5:55 AM 6:16 EST AM EST Resulting Agency Comment Spec In Lab Masha Grayson MD HEMATOLOGY ORDERABLES Performing Organization Address City/State/Z[place] [address] Basic Metabolic Panel (non-fasting) (05/09/2021 5:55 AM EST) P athologist Signature Glucose Lvl 198 65 - 199 [facility] mg/dL [facility] Comment: Diabetes: >=200 mg/dL plus symp toms BUN 12 8 - 18 mg/dL [facility] Creatinine 0.72 0.70 - 1.20 mg/dL [facility] Sodium 137 135 - 145 mmol/L [facility] Potassium 4.2 3.5 - 5.0 mmol/L [facility] Comment: Please note: ??Patients with WBC >100,00 0 may have falsely elevated Potassium levels. ??For accurate Potassium quantif ication in these patients send serum separator tube (gold top) for subsequent determinations. ??Contact the Clinical Chemistry Laboratory if there are any qu estions. Chloride 104 98 - 107 mmol/L [facility] CO2 22 22 - 31 mmol/L [facility] Anion Gap 11 5 - 15 mmol/L [facility] LAB[facility]ORY Calcium 8.6 8.5 - 10.5 mg/dL [facility] Estimated GFR 84 >=60 mL/min/1.73 m?? [facility] Comment: This patient? s estimated [...] Organization Address City/State/[place] [address] XR Fluoro No Rad [...] P athologist Signature Neutrophils % 51.5 % [facility] LABOR[facility]ORY Neutr Abs (ANC) 3.85 1.70 - [facility] 6.10 [facility] x10(3)/[facility] LABORATORY Lymphocytes % 38.3 % [facility] Lymphocytes Abs 2.9 0.9 - 3.2 [facility] x10(3)/[facility] LABORATORY Monocytes % 7.0 % [facility] LABORATORY Monocyte Abs 0.5 0.3 - 0.9 [facility] x10(3)/[facility] LABORATORY Eosinophils % 2.8 % [facility] Eosinophils Abs 0.2 0.0 - 0.4 [facility] x10(3)/[facility] LABORATORY Basophils % 0.3 % [facility] Basophils Abs 0.0 0.0 - 0.1 [facility] x10(3)/[facility] LABORATORY Immature Gran % 0.10 % [facility]ORATORY Comment: Immature granulocytes(IG's)percentage an d absolute count will include metamyelocytes, myelocytes, and promyelo cytes. Blood smears from CBCs yielding IG's will be scanned manually for concor dance. If this scan disagrees with the automated IG or if promyelocytes are not ed, a manual differential will be performed. Denise Gran Abs 0.01 0.00 - 0.04 x10(3)/[facility] MAR Y [facility] LABORATORY Specimen Anatomical Collection Method Collection Time Receive d Time (Source) Location / / Volume Laterality Blood 05/08/2021 6:44 AM 6:56 EST AM EST Resulting Agency Comment Spec In Lab Masha Grayson MD HEMATOLOGY ORDERABLES Performing Organization Address City/State/ZIP Code Phon e Number [place] [phone] HOSPITAL LABORATORY Drive (ABNORMAL) Hemogram (05/08/2021 6:44 AM EST) Analysis Performed At Patho logist Time Signature WBC 7.5 4.0 - 9.5 [facility] x10(3)/[facility] LABORATORY RBC 4.02 4.00 - [facility] 5.21 [facility] x10(6)/[facility] Hemoglobin 13.3 11.7 - [facility] 15.5 g/dL [facility] Hematocrit 38.7 35.7 - [facility] 45.8 % [facility] MCV 96.3 (H) 82.6 - [facility] 94.4 [facility] LABORATORY MCH 33.1 (H) 27.1 - [facility] JENNIFER 32.0 pg [facility] LAB[facility]AT[facility] MCHC 34.4 31.7 - [facility] 35.0 g/dL [facility] Platelets 191 145 - 357 [facility] x10(3)/[facility] RDWSD 46.2 (H) 37.0 - [facility] 46.0 [facility] RDWCV 13.1 11.5 - [facility] JENNIFER 14.1 % [facility] LABORATORY MPV 10.0 7.6 - 12.9 [facility] LABORATORY nRBC % Auto 0.0 % [facility] LABORATORY nRBC Abs Auto 0.000 0.000 - [facility] 0.000 [facility] x10(3)/[facility] LABORATORY Specimen Anatomical Collection Method Collection Time Receive d Time (Source) Location / / Volume Laterality Blood 05/08/2021 6:44 AM 6:56 EST AM EST Resulting Agency Comment Spec In Lab Masha Grayson MD HEMATOLOGY ORDERABLES Performing Organization Address City/State/Z[place] [address] (ABNORMAL) Basic Metabolic Panel (non-fasting) (05/08/2021 6:44 AM EST) P athologist Signature Glucose Lvl 106 65 - 199 [facility] mg/dL [facility]ORY Comment: Diabetes: >=200 mg/dL plus symp toms BUN 14 8 - 18 mg/dL [facility] LABOR[facility]ORY Creatinine 0.84 0.70 - 1.20 mg/dL [facility] LABORATORY Sodium 134 (L) 135 - 145 mmol/L [facility] Potassium 3.8 3.5 - 5.0 mmol/L [facility] Comment: Please note: ??Patients with WBC >100,00 0 may have falsely elevated Potassium levels. ??For accurate Potassium quantif ication in these patients send serum separator tube (gold top) for subsequent determinations. ??Contact the Clinical Chemistry Laboratory if there are any qu estions. Chloride 101 98 - 107 mmol/L [facility]OR[facility]ORY CO2 26 22 - 31 mmol/L [facility] LABOR[facility]ORY Anion Gap 7 5 - 15 mmol/L [facility] LABORATORY Calcium 8.7 8.5 - 10.5 mg/dL [facility] Estimated GFR 70 >=60 mL/min/1.73 m?? [facility] LABOR[facility]ORY Comment: This patient? s estimated [...] Fountain MD CHEMISTRY ORDERABLES Performing Organization Address City/[facility]/[place] [address] Urine Hold (05/08/2021 12:31 AM EST) P athologist Signature Urine Hold Sample in [facility]. [facility] LABORATORY Specimen Anatomical Collection Method Collection Time Receive d Time (Source) Location / / Volume Laterality Urine Micro Spec / 05/08/2021 12:31 05/08/2021 Unknown AM EST 12:55 AM EST Masha Grayson MD URINE ORDERABLES Performing Organization Address [facility] [place] [address] (ABNORMAL) Urine culture Clean Catch Urine (05/08/2021 12:31 AM EST) Component Value Ref Test Analysis Performed At Patholo gist Range Method Time Signature Urine Culture Greater than 100,000 cfu/ml Normal mucosal pastor KAYLAH Susceptibility testing not routinely performed for Coagula se Negative JENNIFER Staphylococcus species and other Gram Positive organisms f rom urine. [facility] LABORATORY Specimen Anatomical Collection Method Collection Time Receive d Time (Source) Location / / Volume Laterality Urine 05/08/2021 12:31 05/08/2021 2:11 AM EST AM EST Resulting Agency Comment Spec In Lab Nancy Fountain MD MICROBIOLOGY - GENERAL ORDER IZZY Performing Organization Address City/[facility]/[place] [address] Type and Screen Validity (05/07/2021 4:50 PM EST) [facility] Method Time Signature T&S only valid [facility] LABORATORY Comment: This Type and Screen result is only valid at the [facility] Specimen Anatomical Collection Method Collection Time Receive d Time (Source) Location / / Volume Laterality Blood 05/07/2021 4:50 PM 2 4:59 EST PM EST Resulting Agency Comment Spec In Lab Masha Grayson MD BLOOD BANK ORDERABLES Performing Organization Address City/State/ZIP Code Phon e Number [address] ABORH Recheck Status (05/07/2021 4:50 PM EST) [facility] Method Time Signature ABORH Type Completed [facility] LABORATORY Specimen Anatomical Collection Method Collection Time Receive d Time (Source) Location / / Volume Laterality Blood 05/07/2021 4:50 PM 2 4:59 EST PM EST Resulting Agency Comment Spec In Lab Masha Grayson MD BLOOD BANK ORDERABLES Performing Organization Address City/State/ZIP Code Phon e Number [address] Differential, Automated (05/07/2021 4:50 PM EST) P athologist Signature Neutrophils % 55.6 % [facility] LABORATORY Neutr Abs (ANC) 5.07 1.70 - [facility] 6.10 [facility] x10(3)/[facility] LABORATORY Lymphocytes % 34.1 % [facility] LABORATORY Lymphocytes Abs 3.1 0.9 - 3.2 [facility] x10(3)/[facility] LABORATORY Monocytes % 7.6 % [facility] LABORATORY Monocyte Abs 0.7 0.3 - 0.9 [facility] x10(3)/[facility] LABORATORY Eosinophils % 2.1 % [facility] LABORATORY Eosinophils Abs 0.2 0.0 - 0.4 [facility] x10(3)/[facility] LABORATORY Basophils % 0.4 % [facility] LABORATORY Basophils Abs 0.0 0.0 - 0.1 [facility] x10(3)/[facility] LABORATORY Immature Gran % 0.20 % [facility] LABORATORY Comment: Immature granulocytes(IG's)percentage an d absolute count will include metamyelocytes, myelocytes, and promyelo cytes. Blood smears from CBCs yielding IG's will be scanned manually for concor dance. If this scan disagrees with the automated IG or if promyelocytes are not ed, a manual differential will be performed. Denise Gran Abs 0.02 0.00 - 0.04 x10(3)/[facility] MAR Y [facility] LABORATORY Specimen Anatomical Collection Method Collection Time Receive d Time (Source) Location / / Volume Laterality Blood 05/07/2021 4:50 PM 5:02 EST PM EST Resulting Agency Comment Spec In Lab Masha Grayson MD HEMATOLOGY ORDERABLES Performing Organization Address City/State/Z[place] [address] (ABNORMAL) Hemogram (05/07/2021 4:50 PM EST) Analysis Performed At Patho logist Time Signature WBC 9.1 4.0 - 9.5 [facility] x10(3)/[facility] LABORATORY RBC 4.48 4.00 - [facility] 5.21 [facility] x10(6)/[facility] LABORATORY Hemoglobin 14.6 11.7 - [facility] 15.5 g/dL [facility] LAB[facility]ORY Hematocrit 43.1 35.7 - [facility] 45.8 % [facility]ATORY MCV 96.2 (H) 82.6 - [facility] 94.4 [facility] LABORATORY MCH 32.6 (H) 27.1 - [facility] 32.0 pg [facility] LABORATORY MCHC 33.9 31.7 - [facility] 35.0 g/dL [facility] LABORATORY Platelets 230 145 - 357 [facility] x10(3)/[facility] LABORATORY RDWSD 46.2 (H) 37.0 - [facility] 46.0 [facility] LABORATORY RDWCV 13.0 11.5 - [facility] 14.1 % [facility] LABORATORY MPV 10.3 7.6 - 12.9 [facility] fL [facility] LABORATORY nRBC % Auto 0.0 % [facility] LABORATORY nRBC Abs Auto 0.000 0.000 - KAYLAH JENNIFER 0.000 [facility] x10(3)/[facility] LABORATORY Specimen Anatomical Collection Method Collection Time Receive d Time (Source) Location / / Volume Laterality Blood 05/07/2021 4:50 PM 2 5:02 EST PM EST Resulting Agency Comment Spec In Lab Masha Grayson MD HEMATOLOGY ORDERABLES Performing Organization Address City/[facility]/[place] [address] Antibody screen (05/07/2021 4:50 PM EST) [facility] Method Time Signature Ab Screen Negative [facility] LABORATORY Expires at 05/10/2021 [facility] [id number] on: [facility] LABORATORY Specimen Anatomical Collection Method Collection Time Receive d Time (Source) Location / / Volume Laterality Blood 05/07/2021 4:50 PM 2 4:59 EST PM EST Resulting Agency Comment Spec In Lab Masha Grayson MD BLOOD BANK ORDERABLES Performing Organization Address City/[facility]/[place] [address] ABO/Rh Typing (05/07/2021 4:50 PM EST) P athologist Signature ABORh Type O Pos [facility] LABORATORY Specimen Anatomical Collection Method Collection Time Receive d Time (Source) Location / / Volume Laterality Blood 05/07/2021 4:50 PM 2 4:59 EST PM EST Resulting Agency Comment Spec In Lab Masha Grayson MD BLOOD BANK ORDERABLES Performing Organization Address City/[facility]/[place] [address] Basic Metabolic Panel (non-fasting) (05/07/2021 4:50 PM EST) P athologist Signature Glucose Lvl 111 65 - 199 [facility] mg/dL [facility] LABORATORY Comment: Diabetes: >=200 mg/dL plus symp toms BUN 15 8 - 18 mg/dL [facility] LABORATORY Creatinine 0.84 0.70 - 1.20 mg/dL [facility] LABORATORY Sodium 139 135 - 145 mmol/L [facility] LABORATORY Potassium 4.4 3.5 - 5.0 mmol/L [facility] LABORATORY Comment: Please note: ??Patients with WBC >100,00 0 may have falsely elevated Potassium levels. ??For accurate Potassium quantif ication in these patients send serum separator tube (gold top) for subsequent determinations. ??Contact the Clinical Chemistry Laboratory if there are any qu estions. Chloride 103 98 - 107 mmol/L [facility] LABORATORY CO2 26 22 - 31 mmol/L [facility] LABORATORY Anion Gap 10 5 - 15 mmol/L [facility] LABORATORY Calcium 9.4 8.5 - 10.5 mg/dL [facility] LABOR[facility]ORY Estimated GFR 70 >=60 mL/min/1.73 m?? [facility] LABORATORY Comment: This patient? s estimated [...] Organization Address City/State/[place] [address] COVID-19 PCR (05/07/2021 3:42 PM EST) [facility] Method Time Signature SARS-CoV-2 Not Detected Not Detected KAYLAH RNA PCR [facility] LABORATORY Comment: This result should be interpreted [...] using the Simplexa COVID-19 Direct Assay by [employer] as authorized by the FDA issued Emergency [...] Department of Pathology and Laboratory Medicine at [facility], certified under the Clinical Laboratory Improvement Amendmen [...] fact sheets at the following FDA website: https://www.fda.gov/medical-devices/uppzxtxreov-czbxusi-2575-jakvf-68-gixakwggq- ooz-lbsmwfzjjsckrj-pgtbxxf-devices/egdiv-bwcckcndpcz-aaqg SARS-CoV-[address] [employer] Swab [facility] LABORATORY Specimen (Source) Anatomical Collection Method Collection Time Re ceived Time Location / / Volume Laterality Nasopharyngeal Swab 05/07/2021 3:42 05/07 PM EST 5:16 PM EST Comment: Symptoms->Surveillance Resulting Agency Comment Spec In Lab Edith Granados MD MICROBIOLOGY - GENERAL ORDER IZZY Performing Organization Address City/State/[place] [address] MRI Lumbar Spine wo [...] in context of the clinical situation (Re fertawana- Ejvik Et Al, Spine 2001). Findings: (Prevalence in [...] who have questions please contact the health neurocritical care physician that requested your imaging first. ? Narrative 05/07/2021 2:16 PM EST EXAMINATION: MRI [...] ho have questions please contact the health neurocritical care physician that requested your imaging first. Edith Granados MD IMG MRI ORDERABLES documented in this encounter Visit Diagnoses Diagnosis Back pain - Primary Backache, unspecified Radiculopathy of lumbar region Thoracic or lumbosacral neuritis or radi culitis, unspecified S/P Revision Right L4-S1 decompression, Right L4-5 diskectomy - 09/14/13 (Evonne) Personal history of surgery to other org ans Right lumbar radiculopathy with L4-L5 HN P Thoracic or lumbosacral neuritis or radi culitis, unspecified documented in this encounter Admitting Diagnoses Diagnosis Back [...] Given 05/09/2021 3:42 PM EST 300 mg HYDROmorphone (Dilaudid) (1 mg/mL) injection Given 05/07/2021 1: 00 PM EST 1 mg syringe 1 mg 1 mg, Intravenous, ONCE, 1 dose, On Fri05/07/21 at 1248, STAT HYDROmorphone (Dilaudid) (1 mg/mL) injection Given 05/07/2021 3: 01 PM EST 1 mg syringe 1 mg 1 mg, Intravenous, ONCE, 1 dose, On Fri05/07/21 at 1459, STAT HYDROmorphone (Dilaudid) (2 mg/mL) Given 05/08/2021 12:55 PM EST 0.6 mg multi-dose injection solution 0.6 mg 0.6 mg, Intravenous, EVERY 10 MIN PRN, Starting on Fri05/08/21 at 1201, Until Fri05/08/21 at 1429, Pain, For Moderate to Severe Pain (6-10 out of 10), Hold for respiratory rate less than 10 per minute. Maximum dose 4 mg over one hour including administrations in the OR. If multiple pain medications are ordered, start with HYDROmorphone or morphine and use fentaNYL for breakthrough pain, PACU Recovery, Routine HYDROmorphone (Dilaudid) tablet 2 mg Given 05/07/2021 11:19 AM EST 2 mg 2 mg, Oral, ONCE, 1 dose, On Fri05/07/21 at 1112, STAT ketorolac (Toradol) (30 mg/mL) injection 15 Given 05/07/2021 10:56 PM EST 15 mg mg 15 mg, Intravenous, EVERY 8 HOURS PRN, Starting on Fri05/07/21 at 1110, Until Fri05/09/21 at 0716, Pain, Routine Given 05/07/2021 1:17 PM EST 15 mg labetaloL (Normodyne) (5 mg/mL) injectio n solution [...] Startin g on Fri05/08/21 at 1938, Until Fri05/10/21 at 1743, for discomfort with PIV ins ertion, Recovery (Recovery-Hospital Unit), Routine lisinopriL (Zestril) tablet 10 mg Given 05/09/2021 9:12 PM EST 10 mg 10 mg, Oral, NIGHTLY, First dose (after last modification) on Fri05/08/21 at 0000, Until Discontinued, Routine Given 05/07/2021 11:19 PM EST 10 mg magnesium citrate oral liquid 296 mL 296 mL, Oral, DAILY PRN, Starting on Fri05/07/21 at 1616, Until Fri05/10/21 at 1743, Constipation, Administer if no bowel [...] may be given concomitantly for constipation., Routine methocarbamoL (Robaxin) tablet 500 mg Given 05/09/2021 9:48 AM EST 500 mg 500 mg, Oral, EVERY 6 HOURS, 8 doses, First dose on Fri05/07/21 at 1622, Last dose on Fri05/09/21 at 1022, Routine Given 05/09/2021 3:40 AM EST 500 mg Given 05/08/2021 10:17 PM EST 500 mg ondansetron (pf) (Zofran) (2 mg/mL) inje ction [...] Startin g on Fri05/07/21 at 1616, Until Fri05/10/21 at 1743, Nausea, Vomiting, If multipl e [...] PRN, Starting on Fri05/07/21 at 1618, Until Fri05/10/21 at 1743, Pain, moderate pain (4-6), Routine pantoprazole EC (Protonix) tablet 40 mg Given 05/10/2021 9:45 AM EST 40 mg 40 mg, Oral, DAILY, First dose on Fri05/08/21 at 0900, Until Discontinued, DO NOT CRUSH OR OPEN, Routine Given 05/09/2021 9:41 AM EST 40 mg polyethylene glycoL (Miralax) packet 17 g 17 g, Oral, DAILY PRN, Starting on Fri at 1616, Until Fri05/10/21 at 1743, Constipation, Administer if no bowel [...] sodium chloride 0.9 % (flush) (BD PosiFl us Normal Saline 0.9) flush 5-20 mL 5-20 mL, Intravenous, EVERY 1 MIN PRN, S tarting on Fri05/08/21 at 1938, Until Ghislaine 05/10/21 at 1743, flush, Flush pertains t o all indwelling lines. Flush per protocol found in the job aid using the link prov ided on this medication record., Recovery (Recovery-Hospital Unit), Routine sodium chloride 0.9% infusion New Bag 05/09/2021 6:06 AM EST 100 mL/hr 100 mL/hr 100 mL/hr, Intravenous, CONTINUOUS, Starting on Fri05/08/21 at 0000, Until Fri05/09/21 at 0710 New Bag 05/08/2021 9:20 PM EST 100 mL/hr 100 mL/hr New Bag 05/08/2021 12:58 PM EST 100 mL/hr 100 mL/hr documented in this encounter Active and Recently [...] Nicci Bassett RN)0601 (Given - Provider: Nicci Bassett, RAFA)1238 (Given - Provider: Yulissa Elkins, RAFA)1820 (Given - Provider: Yulissa Elkins, RAFA) 0013 (Given - Provider: Nicci Bassett RN)0608 (Given - Provider: Nicci Bassett RN)1324 (Given - Provider: Yulissa Elkins RN) 650 [...] comment - Comment: bp 98/53 hr 57) 2112 (Given - Provider: Nicci Bassett, RAFA) 50 mg, Oral, NIGHTLY, First dose (after last modification) on Fri05/08/21 at 0000, Until Discontinued, Routine docusate sodium (Colace) capsule 100 mg 0900 (Not Give n - Provider: Prerna Youngblood RN - Reason: Transfer to a Procedural area)0917 (MAY Hold - Provider: Admin Adt - Reason: Transfer to a Procedural area)1509 (MAY Unhold - Provider: Admin Adt)211 (Given - Provider: Nicci Bassett RN) 0941 (Given - Provider: Yulissa Elkins RN)211 (Given - Provider: Nicci Bassett RN) 0945 [...] Elkins RN)1542 (Given - Provider: Yulissa Elkins RN)211 (Given - Provider: Nicci Bassett RN) 0945 (Given - Provider: Yulissa Elkins RN)1500 (Due - Provider: Admin Adt) 300 mg, Oral, 3 TIMES DAILY, First dose on Fri05/08/21 at 0030, Until Discontinued, Routine 1509 (MAY Unhold - Provider: Admin Adt)1 608 (Given - Provider: Prerna Youngblood RN)4 (Given - Provider: Nicci Bassett RN) lidocaine (Lidoderm) 5% patch 1 patch(Linked Group 1) 916 (MAY Hold - Provider: Admin Adt - [...] (Lidoderm) topical patch REMOVAL(Linked Grou p 1) 09 (MAY Hold - Provider: Admin Adt [...] BP 98/53) 2112 (Given - Provider: Nicci Bassett, RAFA) 10 mg, Oral, NIGHTLY, First dose (after [...] a Procedural area)1247 (MAY Unhold - Provider: lEle Hackett RN)1607 (Given - Provider: Prerna Youngblood, RAFA)2217 (Given - Provider: Nicci Bassett RN) pantoprazole EC (Protonix) tablet 40 mg 0917 (MAY Hold - Provider: Admin [...] 8.6-50 mg per tablet 2 tab let 0900 (Not Given - Provider: Prerna Youngblood RN - Reason: Transfer to a Procedural area)0917 (MAY Hold - Provider: Admin Adt - Reason: Transfer to a Procedural area)1509 (MAY Unhold - Provider: Admin Adt)2113 (Given - Provider: Nicci Bassett RN) 0941 (Given - Provider: Yulissa Elkins, RAFA)2111 (Given - Provider: Nicci Bassett, RAFA) 0945 (Given - Provider: Yulissa Elkins , RAFA) 2 tablet, Oral, 2 TIMES DAILY, First dos e on Fri05/07/21 at 2100, Until Discontinued, Routine sodium chloride 0.9 % (flush) (BD PosiFlush Normal Sarabjit ine 0.9) flush 5 mL 2114 (Given - Provider: Nicci Bassett RN) 09 (Given - Provider: Yulissa Elkins, RAFA)2113 (Given - Provider: Nicci Bassett RN) 0948 (Given - Provider: Yulissa Elkins, RAFA) 5 mL, Intravenous, 2 TIMES DAILY, First [...] RN) 0606 (New Bag - Provider: Nicci yang, RAFA)0710 (Stopped - Provider: Yulissa Elkins, RAFA) 100 mL/hr, Intravenous, CONTINUOUS, Star ting on [...] EVERY 10 MIN PRN, S tarting on 05/08/21 at 1201, Until 05/08/21 at 1429, [...] area)1509 (MAY Unhold - Provider: Admin Adt) 10-20 mg, [...] liquid 296 mL(Linked Group 2) 0 917 (MAY Hold - Provider: Admin Adt - Reason: Transfer to a Procedural area)1509 (MAY Unhold - Provider: Admin Adt) 296 mL, [...] liquid 296 mL(Linked Group 2) 0 917 ([facility] Hold - Provider: Admin Adt - Reason: Transfer to a Procedural area)1509 ([facility] Unhold - Provider: Admin Adt) 296 [...] (240 mg/mL) ora l liquid 10 mL 916 ([facility] Hold - Provider: Admin Adt - Reason: Transfer to a Procedural area)1509 ([facility] Unhold - Provider: Admin Adt) 10 [...] mg/mL) injection 4-8 mg(L inked Group 3) 916 ([facility] Hold - Provider: Admin Adt - Reason: Transfer to a Procedural area)1509 ([facility] Unhold - Provider: Admin Adt) 4-8 mg, Intravenous, EVERY 8 HOURS PRN, Starting on 05/07/21 at 1616, Until Ghislaine 05/10/21 at 1743, Nausea, If multiple antiemetics are ordered, use ondansetron first, prochlorperazine second, and met aclopramide third. Start with 4mg and if ineffective in 30 minutes, give an additional 4mg ondansetron (Zofran) tablet 4-8 mg(Linked Group 3) 091 7 (MAY Hold - Provider: Admin Adt - Reason: Transfer to a Procedural area)1509 (MAY Unhold - Provider: Admin Adt) 4-8 mg, [...] Bassett RN)0941 (See Alternative - Provider: Yulissa Elkins, RAFA)1404 (Given - Provider: Yulissa Elkins RN) 0019 [...] Nicci Bassett RN)0941 (Given - Provider: Yulissa Elkins RN)1404 (See Alternative - Provider: Yulissa Elkins RN) 0019 (See Alternative - Provider: Nicci Bassett, RAFA)0434 (See Alternative - Provider: Nicci Bassett RN) [...] Routine documented in this encounter Care Teams Call Center Professional Relationship Specialty Start Date End Date Patricio Gabriel MD PCP - General 02/20/10 [address] [place] [address] documented as of this encounter
--- OUTSIDE RECORDS SUMMARY | 2021-10-15 18:57 | XMS_ITS | Encounter Summary ---
:1950 Author Organization [facility] Address [address] [place] [address] Care Team Providers Name Role Phone Patricio Gabriel MD Primary Care Provider Encounter Details Date Type Department Care Team Description 10/21/2013 Hospital Encounter XRay at [facility] lumbar [address] [place] [address] radiculopathsandeep with L4-L5 [facility] [id number] Social History Tobacco Use Types Packs/Day Years Used Date Former Smoker 0.25 Quit: 05/30/19 14 Smokeless Tobacco: Never Used Sex Assigned at Date Recorded Not on file documented as of this encounter Medications at Time of Discharge Medication Sig Dispensed Refills Start Date End Date gabapentin (NEURONTIN) Take 1 capsule by 90 capsule 1 2013 300 mg capsule mouth 3 times daily. Begin with 1 cap at HS X 3 days, then 1 cap Q AM and HS X 3 day, then 1 cap TID. acetaminophen (TYLENOL) Take 2 tablets by 30 tablet 1 09/17 500 mg tablet mouth every 8 hours. HYDROmorphone (DILAUDID) 1-2 tabs Q 8-12 60 tablet 0 201301/18/2016 2 mg tablet hours hours as needed for pain. atenolol (TENORMIN) 25 mg Take 1 tablet by 30 tablet 0 08/3001/18/2016 tablet mouth daily. aspirin 325 mg EC tablet Take 1 tablet by 30 tablet 0 09/1701/18/2016 mouth daily. metFORMIN (GLUCOPHAGE) Take 500 mg by 0 01/18/2016 500 mg tablet mouth daily. lisinopril 10 MG = 1 0 05/25/2009 01/18/2016 (PRINIVIL;ZESTRIL) 10 mg Tablet(s), PO, Once tablet daily documented as of this encounter Plan of Treatment Upcoming Encounters Date Type Specialty Care Team Description 12/28/2021 Office Visit Neurosurgery Nancy Fountain MD [facility] [place], [place] [address] (Wo rk) documented as of this encounter Procedures Procedure Name Priority Date/Time Associated Diagnosis Comme nts XR LUMBAR SPINE 2 Routine 10/21/2013 1:07 PM Right lumbar Resu lts for this OR 3 VIEWS EDT radiculopathy with procedure are in L4-L5 HNP the results section. documented in this encounter Results XR lumbar spine 2 or 3 views (10/21/2013 1:07 PM EDT) Anatomical Region Laterality Modality L-spine N/A Radiographic Imaging Specimen (Source) Anatomical Collection Method Collection Time Re ceived Time Location / / Volume Laterality 10/21/2013 1:07 PM EDT Narrative 10/21/2013 4:41 PM EDT Examination LSPINE 2 OR 3 VIEWS Clinical History s/p surgery Comparison Radiographs of the lumbar spine from , 09/14/2013. Technique 2 views of the lumbar spine, AP and late ral both standing. Findings There are 5 non rib bearing lumbar verte bral bodies. ??Vertebral body heights are preserved. ??There has been interval laminectomies performed of L4 and L5. Unchanged straightening of the normal rukhsana mbar lordosis and unchanged mild anterolisthesis of L4 on L5. Diffuse deg enerative changes of the lumbar spine consisting of facet arthropathy, margina l osteophytosis, and disc space narrowing most pronounced at L4-L5. ?? Impression Interval laminectomies of L4 and L5 with out change in alignment. ?? Degenerative changes, as described above . Film and interpretation reviewed by the attending Procedure Note Lucille Arora MD - 10/21/2013Formatt ing of this note might be different from the original. Examination LSPINE 2 OR 3 VIEWS Clinical History s/p surgery Comparison Radiographs of the lumbar spine from , 09/14/2013. Technique 2 views of the lumbar spine, AP and late ral both standing. Findings There are 5 non rib bearing lumbar verte bral bodies. Vertebral body heights are preserved. There has been interval l aminectomies performed of L4 and L5. Unchanged straightening of the normal rukhsana mbar lordosis and unchanged mild anterolisthesis of L4 on L5. Diffuse deg enerative changes of the lumbar spine consisting of facet arthropathy, margina l osteophytosis, and disc space narrowing most pronounced at L4-L5. Impression Interval laminectomies of L4 and L5 with out change in alignment. Degenerative changes, as described above . Film and interpretation reviewed by the attending Tawanda Douglass MD IMG DX ORDERABLES documented in this encounter Visit Diagnoses Diagnosis Right lumbar radiculopathy with L4-L5 HN P Thoracic or lumbosacral neuritis or radi culitis, unspecified documented in this encounter Care Teams Senior Maintenance Mechanic Relationship Specialty Start Date End Date Patricio Gabriel MD PCP - General 02/20/[address] [address] documented as of this encounter
--- OUTSIDE RECORDS SUMMARY | 2021-10-15 18:57 | XMS_ITS | Encounter Summary ---
:1950 Author Organization [facility] Address [address] [place] [address] Care Team Providers Name Role Phone Patricio Gabriel MD Primary Care Provider Encounter Details Date Type Department Care Team Description 03/28/1999 Hospital Encounter [facility] Emergency, Emergency Department - [place], [address] [place] [address] Social History Tobacco Use Types Packs/Day Years Used Date Never Assessed Sex Assigned at Date Recorded Not on file documented as of this encounter Plan of Treatment Not on filedocumented as of this encounter Procedures Procedure Name Priority Date/Time Associated Comments Diagnosis CREATININE Routine 03/28/1999 20:20 Results for this EST procedure are i n the results section. HEMAGRAM & DIFF Routine 03/28/1999 20:20 Results for this EST procedure are i n the results section. PTT Routine 03/28/1999 20:20 Results for this EST procedure are i n the results section. PROTIME Routine 03/28/1999 20:20 Results for this EST procedure are i n the results section. BUN Routine 03/28/1999 20:20 Results for this EST procedure are i n the results section. LIPASE Routine 03/28/1999 20:20 Results for this EST procedure are i n the results section. GLUCOSE, SERUM Routine 03/28/1999 20:20 Results f or this EST procedure are i n the results section. AMYLASE Routine 03/28/1999 20:20 Results for this EST procedure are i n the results section. HEPATIC FUNCTION Routine 03/28/1999 20:20 Results for this PANEL (ALB,ALK EST procedure are in PHOS,ALT,AST,DBIL,TOT the re sults PAUL,TOT PROT) section. ELECTROLYTES Routine 03/28/1999 20:20 Results for this EST procedure are i n the results section. documented in this encounter Results (ABNORMAL) GLUCOSE, SERUM (03/28/1999 20:20 EST) Pathologist Sig nature Glucose, Serum 113 (H) 70 - 110 mg/dl [facility] Specimen Performing Organization Address [facility] Phon e Number [facility] [address] [place] [address] SERVICES [facility] [address] [place] [address] PTT (03/28/1999 20:20 EST) Pathologist Sig nature PTT 23Comment: Therapeutic 20 - 31 secs [facility] Heparin range: 58-100 seconds Specimen Performing Organization Address [facility] Phon e Number [facility] [address] [place] [address] SERVICES [facility] [address] [place] [address] PROTIME (03/28/1999 20:20 EST) Pro Time 12.8 11.7 - 13.4 [facility] secs I.N.R. 1.0 0.8 - 1.2 [facility] Comment: Ratio Moderate Intensity Coumadin INR = 2.0-3.0 Adjustments in anticoagulant therapy dose should be based upon the INR and NOT the Pro Time Specimen Performing Organization Address [facility] Phon e Number [facility] [address] [place] [address] SERVICES [facility] [address] [place] [address] ELECTROLYTES (03/28/1999 20:20 EST) Pathologist Sig nature Sodium 143 136 - 145 mEq/L [facility] Potassium 3.7 3.5 - 5.0 mEq/L [facility] Chloride 103 96 - 110 mEq/L [facility] CO2 29 24 - 30 mEq/L [facility] Specimen Performing Organization Address [facility] Phon e Number [facility] [address] [place] [address] SERVICES [facility] [address] [place] [address] LIVER FUNCTION TESTS (03/28/1999 20:20 EST) Pathologist Sig nature Albumin 4.1 3.0 - 5.5 g/dl [facility] Total Alkaline 70 38 - 126 U/L [facility] Phosphatase ALT 36 15 - 75 U/L [facility] AST 27 8 - 50 U/L [facility] Unconjugated Bilirubin 0.4 0.1 - 1.1 mg/dl [facility] Conjugated Bilirubin 0.0 0.0 - 0.3 mg/dl [facility] B Bilirubin, Total 0.9 0.2 - 1.3 mg/dl [facility] Specimen Performing Organization Address [facility] Phon e Number [facility] [address] [place] [address] SERVICES [facility] [address] [place] [address] LIPASE (03/28/1999 20:20 EST) Pathologist Sig nature Lipase 67 0 - 210 U/L [facility] Specimen Performing Organization Address City/[facility]/ZIP Code Phon e Number [facility] [address] [place] [address] SERVICES [facility] [address] [place] [address] CREATININE (03/28/1999 20:20 EST) Pathologist Sig nature Creatinine 0.7 0.7 - 1.5 mg/dl [facility] Specimen Performing Organization Address [facility]/ZIP [facility] Phon e Number [facility] [address] [place] [address] SERVICES [facility] [address] [place] [address] HEMAGRAM & DIFF (03/28/1999 20:20 EST) Pathologist Sig nature WBC 8.12 4.0 - 12.4 K/cmm [facility] RBC 4.50 3.86 - 5.04 M/cmm [facility] Hemoglobin 14.0 11.6 - 15.2 gm/dl [facility] HCT 41.0 34.9 - 44.4 % [facility] MCV 91 81 - 98 fl [facility] MCH 31.1 26.7 - 33.3 pg [facility] MCHC 34.1 32.1 - 35.9 gm/dl [facility] PLT 287 141 - 320 K/cmm [facility] RDW-CV 12.4 11.7 - 14.6 % [facility] Neutrophils 51.6 45.5 - 79.7 % [facility] Lymphocytes 36.3 15.0 - 46.8 % [facility] Monocytes 7.3 1.8 - 12.0 % [facility] Eosinophils 4.1 0.6 - 6.9 % [facility] Basophils 0.7 0.2 - 1.4 % [facility] ABS Neutrophils 4.19 2.20 - 8.85 K/cmm [facility] ABS Lymphs 2.95 1.09 - 3.30 K/cmm [facility] ABS Monocytes 0.59 0.1 - 0.8 K/cmm [facility] ABS Eosinophils 0.33 0.03 - 0.61 K/cmm [facility] ABS Basophils 0.06 0.01 - 0.11 K/cmm [facility] Type of Diff: Automated [facility] Specimen Performing Organization Address City/[facility]/ZIP Code Phon e Number [facility] [address] [place] [address] SERVICES [facility] [address] [place] [address] BUN (03/28/1999 20:20 EST) Pathologist Sig nature BUN 16 10 - 26 mg/dl [facility] Specimen Performing Organization Address [facility]/ZIP Code Phon e Number [facility] [address] [place] [address] SERVICES [facility] [address] [place] [address] AMYLASE (03/28/1999 20:20 EST) Pathologist Sig nature Amylase 46 30 - 110 U/L [facility] Specimen Performing Organization Address [facility]/ZIP [facility] Phon e Number [facility] [address] [place] [address] SERVICES [facility] [address] [place] [address] documented in this encounter Visit Diagnoses Not on filedocumented in this encounter Care Teams Picking Tech Relationship Specialty Start Date End Date Patricio Gabriel MD PCP - General 02/01/09 [address] [place] [address] documented as of this encounter
--- OUTSIDE RECORDS SUMMARY | 2021-10-15 18:57 | XMS_ITS | Encounter Summary ---
:1950 Author Organization [facility] [place] [address] Care Team Providers Name Role Phone Patricio Gabriel MD Primary Care Provider Encounter Details Date Type Department Care Team Description 05/07/2021 Travel Social History Tobacco Use Types Packs/Day Years Used Date Former Smoker 0.25 Quit: 05/30/19 14 Smokeless Tobacco: Never Used Sex Assigned at Date Recorded Not on file documented as of this encounter Plan of Treatment Upcoming Encounters Date Type Specialty Care Team Description 12/28/2021 Office Visit Neurosurgery Nancy Fountain MD [facility] [place], [place] [address] (Wo rk) documented as of this encounter Visit Diagnoses Not on filedocumented in this encounter Care Teams Commercial Painter Relationship Specialty Start Date End Date Patricio Gabriel MD PCP - General 02/20/10 [address] [place], [place] [address] documented as of this encounter
--- OUTSIDE RECORDS SUMMARY | 2021-10-15 18:57 | XMS_ITS | Encounter Summary ---
:1950 Author Organization [facility] [address] Care Team Providers Name Role Phone Patricio Gabriel MD Primary Care Provider Reason for Referral Physical Therapy (Routine) - Complete - Patient Seen (External Appt Consult Notes Rcv'd) Specialty Diagnoses / Procedures Referred By Contact Refer red To Contact Physical Therapy Diagnoses History of lumbar discectomy Tawanda Douglass MD [facility] [place] [address] Referral ID Status Reason Start Expiration Visits Visits Date Date Requested Authorized [id number] Complete - Evaluate and 11/01/2013 04/30/2014 1 1 Patient Seen Treat (External Appt Consult Notes Rcv'd) Reason for Visit Reason Onset Date Comments Other 11/01/2013 requesting PT referr al. Encounter Details Date Type Department Care Team Description 11/01/2013 Telephone [facility] ( requesting PT Devan Long RN referral.) [place] [phone] Social History Tobacco Use Types Packs/Day Years Used Date Former Smoker 0.25 Quit: 05/30/19 14 Smokeless Tobacco: Never Used Sex Assigned at Date Recorded Not on file documented as of this encounter Miscellaneous Notes Telephone Encounter - [facility] RN - 11/01/2013 10:24 AM EDT Received call from patient stating that she discussed PT with Dr. Douglass at 10/21/13, she had her first appointment with the therapist today and they asked her to have referral and op note faxed to [phone]. Above discussed with Dr. Douglass, PT referral completed and faxed with op note as patient requested. documented in this encounter Plan of Treatment Upcoming Encounters Date Type Specialty Care Team Description 12/28/2021 Office Visit Neurosurgery Nancy Fountain MD [facility] [place], [place] [address] (Wo rk) Scheduled Referrals Name Type Priority Associated Diagnoses Order S chedule Referral to Outpatient Referral Routine History of lumbar Ord ered: Physical Therapy discectomy 11/01/2013 documented as of this encounter Visit Diagnoses Diagnosis History of lumbar discectomy - Primary Personal history of surgery to other org ans documented in this encounter Care Teams Technology Engineer Relationship Specialty Start Date End Date Patricio Gabriel MD PCP - General 02/20/[address] [place] [id number] documented as of this encounter
--- OUTSIDE RECORDS SUMMARY | 2021-10-15 18:57 | XMS_ITS | Encounter Summary ---
:1950 Author Organization [facility] [place] [address] Care Team Providers Name Role Phone Patricio Gabriel MD Primary Care Provider Encounter Details Date Type Department Care Team Description 06/27/2021 Telephone Neurosurgery [place] [facility] [place] Fountain MD [facility] [place] [phone] NEUROSURGERY [phone] [place], [place] [address] (Wo rk) Social History Tobacco Use Types Packs/Day Years Used Date Former Smoker 0.25 Quit: 05/30/19 14 Smokeless Tobacco: Never Used Alcohol Use Standard Drinks/Week Comments Yes 0 (1 standard drink = 0.6 oz pure alcoho l) Sex Assigned at Date Recorded Not on file documented as of this encounter Miscellaneous Notes Telephone Encounter - Lexie Dave - 06/27/2021 11:16 AM EDT Patient returning call. Confirms appt 12/28 and asks PT referral to be sent to [facility] PT in [facility], faxed demo, notes, and referral to [phone] Telephone Encounter - Bhavna Kimball - 06/27/2021 11:06 AM EDT LM for pt re: PT referral where would pt like it faxed. Also, scheduled 6 mo fu with for 12/28 at 1pm pls let pt know. ~~~~~~~~~~~~~~~~~~~~~~~~~~~~~~~~~~~~~~~~~~~~~~~~~~~~~~ Yesi Estrella D - 06/22/21 Nancy Fountain MD Sent: FriJune 22, 2021 ??4:21 PM To: P [facility] Neurosurgery Director Microbiology ?? Message Plan; 1. ??Referral to physical therapy 2. ??Refill for Flexeril 3. ??Follow-up with me in 6 months. Thank you, Allyson documented in this encounter Plan of Treatment Upcoming Encounters Date Type Specialty Care Team Description 12/28/2021 Office Visit Neurosurgery Nancy Fountain MD [facility] [place], [place] [address] (Wo rk) documented as of this encounter Visit Diagnoses Not on filedocumented in this encounter Care Teams Regional Ehs Manager Relationship Specialty Start Date End Date Patricio Gabriel MD PCP - General 02/20/[address] [place] [address] documented as of this encounter
--- OUTSIDE RECORDS SUMMARY | 2021-10-15 18:57 | XMS_ITS | Encounter Summary ---
:1950 Author Organization [facility] [place] [address] Care Team Providers Name Role Phone Patricio Gabriel MD Primary Care Provider Encounter Details Date Type Department Care Team Description 07/03/2021 Telephone Neurosurgery at [facility] [place] [address] Social History Tobacco Use Types Packs/Day Years Used Date Former Smoker 0.25 Quit: 05/30/19 14 Smokeless Tobacco: Never Used Alcohol Use Standard Drinks/Week Comments Yes 0 (1 standard drink = 0.6 oz pure alcoho l) Sex Assigned at Date Recorded Not on file documented as of this encounter Miscellaneous Notes Telephone Encounter - Jackie Davidson - 07/04/2021 11:05 AM EDT Pt calling to request referral to PT be sent to [facility]. Faxed referral, demos, and OV notes. documented in this encounter Plan of Treatment Upcoming Encounters Date Type Specialty Care Team Description 12/28/2021 Office Visit Neurosurgery Nancy Fountain MD [facility] ER [address] [place], [place] [address] (Wo rk) documented as of this encounter Visit Diagnoses Not on filedocumented in this encounter Care Teams [employer] Forest[employer] Workers Relationship Specialty Start Date End Date Patricio Gabriel MD PCP - General 02/20/10 [address] [place] [address] documented as of this encounter
--- OUTSIDE RECORDS SUMMARY | 2021-10-15 18:58 | XMS_ITS | Encounter Summary ---
:1950 Author Organization [facility] [place] [address] Care Team Providers Name Role Phone Patricio Gabriel MD Primary Care Provider Reason for Visit Reason Onset Date Comments Medication Refill 09/21/2013 Hydromorphone 2 mg t abs. Encounter Details Date Type Department Care Team Description 09/21/2013 Refill [facility] [place] [address] Social History Tobacco Use Types Packs/Day Years Used Date Former Smoker 0.25 Quit: 07/30/19 14 Smokeless Tobacco: Never Used Sex Assigned at Date Recorded Not on file documented as of this encounter Miscellaneous Notes Telephone Encounter - Jerry Seals RN - 09/21/2013 10:24 AM EDT Received call from patient requesting refill of Hydromorphone 2 mg tabs. Patient is s/p 09/14/13 Revision right L4-S1 decompression, right L4-5 diskectomy. She reports that she has 10 tabs on hand, she has been taking 3 tabs Q 3 hours along with Oxycontin 10 mg Taper. She has been able to decrease to 2tabs per dose, discussed spreading time between doses to 4-6 hours. Refill will need to be mailed toher local pharmacy, will connect with PCP office to discuss interim supply to cover while refill is mailed. Refill request discussed with Dr. Estes in Dr. Douglass's absence, he authorized refill for Hydromorphone 2 mg tabs, 1-2 tabs Q 4-6 hours as needed, #90. Contacted PCP's office, spoke with nurse requesting interim 3 supply to cover while awaiting mailed prescription., Dr. Gabriel is away but she will review with a covering provider. Patient contacted, spoke with patient's , he was informed that refill was completed, discussed dose and frequency and that prescriptions is being mailed to [facility] in [place], [place] as requested. He reports that patient has heard from PCP's office regarding the interim supply. documented in this encounter Plan of Treatment Upcoming Encounters Date Type Specialty Care Team Description 12/28/2021 Office Visit Neurosurgery Nancy Fountain MD [facility] ER [address] [place], [place] [address] (Wo rk) documented as of this encounter Visit Diagnoses Not on filedocumented in this encounter Care Teams Oral Therapist Relationship Specialty Start Date End Date Patricio Gabriel MD PCP - General 02/20/[address] [place] [address] documented as of this encounter
--- OUTSIDE RECORDS SUMMARY | 2021-10-15 18:58 | XMS_ITS | Encounter Summary ---
:1950 Author Organization [facility] [place] [address] Care Team Providers Name Role Phone Patricio Gabriel MD Primary Care Provider Encounter Details Date Type Department Care Team Description 09/10/2013 Telephone [facility] [place] [address] Social History Tobacco Use Types Packs/Day Years Used Date Former Smoker 0.25 Quit: 07/30/19 14 Smokeless Tobacco: Never Used Sex Assigned at Date Recorded Not on file documented as of this encounter Miscellaneous Notes Telephone Encounter - Jerry Seals RN - 09/10/2013 4:52 PM EDT Call placed to patient; advised pt of need to hold anticoagulants, NSAIDs, ASA products, and FishOilfor 7 days preoperatively. Reviewed medication list. Patient is not noted to be on any anticoagulants. Medication list updated. documented in this encounter Plan of Treatment Upcoming Encounters Date Type Specialty Care Team Description 12/28/2021 Office Visit Neurosurgery Nancy Fountain MD [facility] ER [address] [place], [place] [address] (Wo rk) documented as of this encounter Visit Diagnoses Not on filedocumented in this encounter Care Teams Ornamental Iron Erector Relationship Specialty Start Date End Date Patricio Gabriel MD PCP - General 02/20/[address] [id number] documented as of this encounter
--- OUTSIDE RECORDS SUMMARY | 2021-10-15 18:58 | XMS_ITS | Encounter Summary ---
:1950 Author Organization [facility] [place] [address] Care Team Providers Name Role Phone Patricio Gabriel MD Primary Care Provider Encounter Details Date Type Department Care Team Description 05/16/2013 Orders Only [facility] Raciel Sharma PA [facility] [place] [address] [facility] [phone] [place] [phone] (Wo rk) Social History Tobacco Use Types Packs/Day Years Used Date Never Assessed Sex Assigned at Date Recorded Not on file documented as of this encounter Plan of Treatment Upcoming Encounters Date Type Specialty Care Team Description 12/28/2021 Office Visit Neurosurgery Nancy Fountain MD [facility] NEUROSURGERY [place], [place] [address] (Wo rk) documented as of this encounter Procedures Procedure Name Priority Date/Time Associated Diagnosis Comme nts FILM LIBRARY Routine 05/16/2013 10:24 AM Results for this STORAGE ONLY DX EST procedure ar e in SPINE the results section. documented in this encounter Results Film Library- Storage only DX Spine (05/16/2013 10:24 AM EST) Anatomical Region Laterality Modality Other Specimen (Source) Anatomical Collection Method Collection Time Re ceived Time Location / / Volume Laterality 05/16/2013 10:24 AM EST Narrative 07/16/2013 10:29 AM EDT This is a Non-reportable exam Procedure Note 07/16/2013 This is a Non-reportable exam Raciel MACDONALD IMG FILM LIBRARY ORDERABLES documented in this encounter Visit Diagnoses Not on filedocumented in this encounter Care Teams Freezer Person Relationship Specialty Start Date End Date Patricio Gabriel MD PCP - General 02/20/[address] [place] [id number] documented as of this encounter
--- OUTSIDE RECORDS SUMMARY | 2021-10-15 18:58 | XMS_ITS | Encounter Summary ---
:1950 Author Organization [facility] Address [address] [place] [address] Care Team Providers Name Role Phone Patricio Gabriel MD Primary Care Provider Encounter Details Date Type Department Care Team Description 08/11/2013 Clinical Support [facility] lumbar [facility] radiculop athy with L[address] [place] [address] Social History Tobacco Use Types Packs/Day Years Used Date Former Smoker 0.25 Quit: 07/30/19 14 Smokeless Tobacco: Never Used Sex Assigned at Date Recorded Not on file documented as of this encounter Last Filed Vital Signs Vital Sign Reading Time Taken Comments Blood Pressure - - Pulse 65 08/11/2013 2:53 PM EDT Temperature - - Respiratory Rate - - Oxygen Saturation 95% 08/11/2013 2:53 PM EDT Inhaled Oxygen Concentration - - Weight 69.9 kg (154 lb 3.2 oz) 08/11/2013 2:53 PM EDT Height 165.1 cm (5' 5) 08/11/2013 2:53 PM EDT Body Mass Index 25.66 08/11/2013 2:53 PM EDT documented in this encounter Progress Notes Karyna Weber RN - 08/11/2013 3:28 PM EDT Questionnaire reviewed with patient, no further interventions needed. No post anesthesia complications. Mild HTN well controlled, new onset of NIDDM well controlled with HgbA1c of 6. Pre-op folder discussed, labs drawn, EKG done. DOS is 09-14-[address] Douglass. documented in this encounter H&P Notes Provider, Gilberto - 08/25/2013 10:58 AM EDT documented in this encounter Plan of Treatment Upcoming Encounters Date Type Specialty Care Team Description 12/28/2021 Office Visit Neurosurgery Nancy Fountain MD [facility] ER NEUROSURGERY [place], [place] [address] (Wo rk) documented as of this encounter Procedures Procedure Name Priority Date/Time Associated Diagnosis Comme nts EKG 12-LEAD Routine 08/11/2013 3:36 PM Right lumbar Results f or this EDT radiculopathy with procedure are in L4-L5 HNP the results section. documented in this encounter Results EKG 12 Lead (08/11/2013 3:36 PM EDT) Component Value Ref Range Test Analysis Performed Pathologis t Method Time At Signature Ventricular rate 52 BPM MUSE SYSTEM Atrial Rate 52 BPM MUSE SYSTEM P-R Interval 124 ms MUSE SYSTEM QRS Duration 138 ms MUSE SYSTEM Q-T Interval 510 ms MUSE SYSTEM QTC Calculated 474 ms MUSE SYSTEM (Bezet) Calculated P [place] 52 degrees MUSE SYSTEM Calculated R [place] 41 degrees MUSE SYSTEM Calculated T [place] 33 degrees MUSE SYSTEM INTERPRETATION Sinus bradycardia MUSE SY STEM Possible Left atrial enlargement Right bundle branch block Abnormal ECG When compared with ECG of 25-MAY-2009 02:16, No significant change was found Confirmed by Ileana JORDAN, [facility] ([id number]) on 08/12/2013 12:17:57 P M Specimen Anatomical Collection Method Collection Time Receive d Time (Source) Location / / Volume Laterality 08/11/2013 3:36 PM 4 EDT 12:17 PM EDT Tawanda Douglass MD ECG ORDERABLES Performing Organization Address City/State/ZIP Code Phon e Number MUSE SYSTEM documented in this encounter Visit Diagnoses Diagnosis Right lumbar radiculopathy with L4-L5 HN P Thoracic or lumbosacral neuritis or radi culitis, unspecified documented in this encounter Care Teams Bus Washer Relationship Specialty Start Date End Date Patricio Gabriel MD PCP - General 02/20/[address] [place] [address] documented as of this encounter
--- OUTSIDE RECORDS SUMMARY | 2021-10-15 18:58 | XMS_ITS | Encounter Summary ---
:1950 Author Organization [facility] Address [address] [facility] [place] [address] Care Team Providers Name Role Phone Patricio Gabriel MD Primary Care Provider Reason for Visit Reason Comments Low Back Pain Encounter Details Date Type Department Care Team Description 07/20/2013 [facility] m[facility] radicul[facility] (Primary Dx); Devan MACDONALD Chronic low back pain; [facility] [place] pain, [address] [facility] [place] [facility] [id number] [place] [address] [phone] Social History Tobacco Use Types Packs/Day Years Used Date Current Every Day Smoker 0.25 Sex Assigned at Date Recorded Not on file documented as of this encounter Last Filed Vital Signs Vital Sign Reading Time Taken Comments Blood Pressure - - Pulse - - Temperature - - Respiratory Rate - - Oxygen Saturation - - Inhaled Oxygen Concentration - - Weight 68 kg (150 lb) 07/20/2013 2:21 PM EDT Height 165.1 cm (5' 5) 07/20/2013 2:21 PM EDT Body Mass Index 24.96 07/20/2013 2:21 PM EDT documented in this encounter Patient Instructions Patient InstructionsNancy Leung LPN - 07/20/2013 2:24 PM EDT I would like you to sign up for myD-H, which will give you secure online access to your electronic medical record at [facility] and the ability to communicate with your health care team when and where it???s most convenient for you. With myD-H you will be able to: - look at parts of your medical record including test results and office notes - send and receive messages to/from me and your other providers - renew prescriptions - schedule appointments. To sign up, go to [email or web address] and click I have an activation code and follow the instructions. Here is your activation code: [email or web address] Expires: 09/03/2013 2:24 PM Remember, myD-H is NOT for urgent needs! Always dial 911 for medical emergencies. documented in this encounter Progress Notes Raciel Sharma PA - 07/20/2013 2:51 PM EDT SUBJECTIVE: Ms. Estrella is a 63-year-old female who is status post left-sided laminectomy and diskectomy at L3-L4 and L4-L5 foraminotomy [place] in [address] Lu. Following surgery, she continued to have symptoms in the back and left leg and was reevaluated by Dr. Lu and another neurosurgeon and was not recommended for further surgery as there was significant scar tissue enhancement. She has had continuous symptoms over the years. However, in the last year, she developed a new onset of right leg pain symptom, which was her predominant pain issue. Her right leg pain seems to go from the hip and buttock and wrap around to the groin and then travels down the lateral aspect of the leg all the way to foot and ankle. She has similar symptoms on the left, but they are not as predominant. She also feels some numbness and tingling in the right lateral calf and foot. She rates her pain currently as a 7/10 with pain ranging between a 3-10. She indicates there are no specific aggravating or alleviating factors. She does not describe any bowel or bladder incontinence. Prior treatments have included chiropractor and tramadol, but she also reports having epidural steroid injections in the past. She has not had any other spine surgeries besides the one that is discussed above, and she reports no history of cancer. REVIEW OF SYSTEMS: Review of systems is negative for any reported GI, , or constitutional symptoms. MEDICATIONS: Medications have been reviewed and updated on the system. ALLERGIES: ALLERGIES HAVE BEEN REVIEWED AND UPDATED ON THE SYSTEM. Problem List: Patient Active Problem List Diagnosis Code ??? Chronic leg pain 729.5, 338.29 ??? Chronic low back pain 724.2, 338.29 ??? Right lumbar radiculopathy 724.4 PMH: Past Medical History Diagnosis Date ??? High blood pressure ??? Angina pectoris PSH: Past Surgical History Procedure Date ??? Hysterectomy, total abdominal ??? Cholecystectomy ??? Lumbar laminectomy ??? Hernia repair Social Hx: History Social History ??? Marital Status: Spouse Name: N/A Number of Children: N/A ??? Years of Education: N/A Occupational History ??? Not on file. Social History Main Topics ??? Smoking status: Current Every Day Smoker -- 0.2 packs/day ??? Smokeless tobacco: Not on file ??? Alcohol Use: Not on file ??? Drug Use: Not on file ??? Sexually Active: Not on file Other Topics Concern ??? Not on file Social History Narrative ??? No narrative on file OBJECTIVE: This patient is a reasonably healthy-appearing 63-year-old female who is alert and oriented x3. She stands without any scoliosis, but does have a surgical scar in the midline from L3 to L5. She ambulates with a mild antalgic gait on the right leg and was able to toe and heel walk. She has some tenderness along the paraspinal musculature of the lumbar spine along with the right SI joint and right buttock. She has limited lumbar flexion with her fingers going just about to her shins causing increased back and right leg symptoms, and extends about 20 degrees with increased back and right leg symptoms. Neurologically, her sensation was intact in both lower extremities, reflexes were 1+ and symmetrical at the knees and ankles, motor testing was 4/5 with right EHL, but otherwise normal motor testing at all other levels. Straight leg raise and crossed straight leg raise are negative. Hip range of motion was full, but did cause some right hip pain symptoms. Babinski and clonus are negative. Distal pulses are intact. IMAGING: There are no current images for the spine, and her most recent MRI that is visible is from 2004 on the system, but there is a report on the systems for an MRI of 2007. These findings did demonstrate postsurgical changes on the left at L3-L4. There is significant degenerative disk desiccation and disk bulging along with facet hypertrophy, which does cause some central canal stenosis at the L3-L4 level and mild central canal narrowing at the L4-L5 level. ASSESSMENT: Chronic back and left leg symptoms with a prior spine surgery, with a more acute onset of right radicular pain symptoms. PLAN: I have reviewed with the patient that I do believe it is reasonable to get an updated MRI of her lumbar spine as she has a new onset of right leg symptoms in the last year that has not improved and if anything has worsened. However, because she talks about some hip pain as well, I think getting a hip x-ray would be reasonable as well. Based on the findings of these, it may help influence our discussion on treatments, and we did review the possibilities of physical therapy with a Laure-based approach, NSAIDs, epidural steroid injection, medial branch block/radiofrequency ablation, possible surgery. After our discussion and answering her questions, the plan is as follows: 1) I have ordered an MRI of the cervical spine without contrast along with an x- ray of the cervical spine, and she will follow up in the spine center after the treatment has been completed. documented in this encounter Plan of Treatment Upcoming Encounters Date Type Specialty Care Team Description 12/28/2021 Office Visit Nancy Muse MD [facility] [address] [place], [place] [address] (Wo rk) documented as of this encounter Results MRI lumbar spine with/WO contrast (07/23/2013 11:32 AM EDT) Anatomical Region Laterality Modality L-spine Magnetic Resonance Specimen (Source) Anatomical Collection Method Collection Time Re ceived Time Location / / Volume Laterality 07/23/2013 11:32 AM EDT Narrative 07/23/2013 11:53 AM EDT Examination MR Lumbar Spine W/WO Oscar Clinical History Back and right>left leg pain. S/P prior spine surgery (2004) with left laminectomy and discectomy at L3-L4 and foraminotomy at L4-L5., left leg pain chronic since prior surgery. ??Right leg pain acute Rule out HNP versus scar tissue Technique MR lumbar spine performed prior to and f ollowing intravenous administration of 14 mL Magnevist. Comparison 05/22/2004, plain films 05/16/2013. Findings The overall alignment of the lumbar spin e is unremarkable, and unchanged compared to the prior study. ??Marrow si gnal is somewhat heterogeneous, but there is no focal, aggressive appearing marrow lesion. ??Marrow edema is present at the anterior inferior L4, and anterio r superior L5 endplates, especially on the right, which is degenerative. ??The conus remains normal appearance, terminating at the lower limits of cooper l at L2-L3. ??Visualized retroperitoneal structures are unremarkable. Findings at specific levels: L1-L2: ??Bilateral facet arthropathy is present without central canal, or neural foraminal narrowing. L2-L3: ??Disc bulge and facet arthropath y are present with minimal caudal neural foraminal narrowing. L3-L4: ??There are previous left laminot tien changes. ??A left foraminal disc protrusion is present in the background of disc bulge producing mild caudal neural foraminal narrowing. ??There is m ild overall central canal narrowing. Minimal enhancement is present in the ep idural space on the left. ?? L4-L5: ??A right paracentral and foramin al disc extrusion is present in the background of disc bulge. ??Disc materia l and facet arthropathy combine to produce moderate to severe central canal narrowing. ??There is moderate right and mild left foraminal narrowing. ??Dis c material impinges on the traversing right L5 root in the subarticular recess . L5-S1: ??A small right paracentral disc protrusion is present in the background disc bulge. ??Combination of endplate pr oliferation, disc material, and facet arthropathy produce moderate right and l eft foraminal narrowing. ??There is mild overall central canal narrowing. Disc ma terial contacts the traversing right S1 root. ?? Impression Multilevel degenerative and postsurgical changes. A new disc extrusion at L4-L5 on the right impinges on the traversing right L5 root. Comment: The following findings are so c ommon in people without low back pain that while we report their presence, the y must be interpreted with caution and in the context of the clinical situation . (Reference-Ejvik et al, Spine 2001) Findings: (prevalence in patients withou t low back pain), Disk degeneration (decreased T2 signal, height loss, bulge ) (91%), Disk T2-signal loss (83%), Disk height loss (56%), Disk bulge (64%) , Disk protrusion (32%), Annular fissure (38%). Procedure Note Ronnie Izaguirre MD - 07/23/2013Format ting of this note might be different from the original. Examination MR Lumbar Spine W/WO Oscar Clinical History Back and right>left leg pain. S/P prior spine surgery (2004) with left laminectomy and discectomy at L3-L4 and foraminotomy at L4-L5., left leg pain chronic since prior surgery. Right leg p ain acute Rule out HNP versus scar tissue Technique MR lumbar spine performed prior to and f ollowing intravenous administration of 14 mL Magnevist. Comparison 05/22/2004, plain films 05/16/2013. Findings The overall alignment of the lumbar spin e is unremarkable, and unchanged compared to the prior study. Marrow sign al is somewhat heterogeneous, but there is no focal, aggressive appearing marrow lesion. Marrow edema is present at the anterior inferior L4, and anterio r superior L5 endplates, especially on the right, which is degenerative. The co nus remains normal appearance, terminating at the lower limits of cooper l at L2-L3. Visualized retroperitoneal structures are unremarkable. Findings at specific levels: L1-L2: Bilateral facet arthropathy is pr esent without central canal, or neural foraminal narrowing. L2-L3: Disc bulge and facet arthropathy are present with minimal caudal neural foraminal narrowing. L3-L4: There are previous left laminotom y changes. A left foraminal disc protrusion is present in the background of disc bulge producing mild caudal neural foraminal narrowing. There is mil d overall central canal narrowing. Minimal enhancement is present in the ep idural space on the left. L4-L5: A right paracentral and foraminal disc extrusion is present in the background of disc bulge. Disc material and facet arthropathy combine to produce moderate to severe central canal narrowing. There is moderate right and mild left foraminal narrowing. Disc material impinges on the traversing right L5 root in the subarticular recess . L5-S1: A small right paracentral disc pr otrusion is present in the background disc bulge. Combination of endplate prol iferation, disc material, and facet arthropathy produce moderate right and l eft foraminal narrowing. There is mild overall central canal narrowing. Disc ma terial contacts the traversing right S1 root. Impression Multilevel degenerative and postsurgical changes. A new disc extrusion at L4-L5 on the right impinges on the traversing right L5 root. Comment: The following findings are so c ommon in people without low back pain that while we report their presence, the y must be interpreted with caution and in the context of the clinical situation . (Reference-Armandok et al, Spine 2001) Findings: (prevalence in patients withou t low back pain), Disk degeneration (decreased T2 signal, height loss, bulge ) (91%), Disk T2-signal loss (83%), Disk height loss (56%), Disk bulge (64%) , Disk protrusion (32%), Annular fissure (38%). Collin Sargent MD IMG MRI ORDERABLES documented in this encounter Visit Diagnoses Diagnosis Right lumbar radiculopathy - Primary Thoracic or lumbosacral neuritis or radi culitis, unspecified Chronic low back pain Lumbago Chronic leg pain, left Right lumbar radiculopathy Thoracic or lumbosacral neuritis or radi culitis, unspecified Chronic low back pain Lumbago Chronic leg pain, left documented in this encounter Care Teams Demand Generator Manager Relationship Specialty Start Date End Date Patricio Gabriel MD PCP - General 02/20/[address] [place] [id number] documented as of this encounter
--- OUTSIDE RECORDS SUMMARY | 2021-10-15 18:58 | XMS_ITS | Encounter Summary ---
:1950 Author Organization [place] [address] Care Team Providers Name Role Phone Patricio Gabriel MD Primary Care Provider Reason for Visit Reason Comments Low Back Pain Encounter Details Date Type Department Care Team Description 08/11/2013 Office Visit [facility], rukhsana mbar radiculopathy with L4-L5 HNP (Primary Dx); Devan JORDAN Aching leg syndrome [facility] DR [place], [place] [facility] [id number] [place] [address] [phone] Social History Tobacco Use Types Packs/Day Years Used Date Former Smoker 0.25 Quit: 07/30/19 14 Smokeless Tobacco: Never Used Sex Assigned at Date Recorded Not on file documented as of this encounter Progress Notes Tawanda Douglass MD - 08/11/2013 2:06 PM EDT INTERVAL HISTORY: Ms. Estrella returns today to discuss her treatment options. To review, she is a 63-year-old female who in the past underwent a left L3-L4 and left L4-L5 decompression by Dr. Lu. She unfortunately developed right lower extremity pain in the setting of a right-sided L4-L5 disk herniation as well as some foraminal stenosis on the right at L5-S1 and lateral recess stenosis on the right at L5-S1 where there is a posterolateral disk bulge as well. She underwent a right L4-L5 transforaminal epidural steroid injection on 07/29/2013 and had no benefit from this. She wants to discuss her surgical options. I reviewed her MRI that demonstrates the postsurgical changes from L3 through L5. The entire L4 spinous process as well as the caudal portion of L3 and the cranial portion of L5 spinous processes have been removed. There is a laminectomy on the left approximately L3 through L5. On the right at L4-L5, she has a posterolateral and foraminal disk herniation. There is posterolateral disk herniation compressing the traversing L5 root in lateral recess. She appears to have moderate central stenosis at this level as well. At L5-S1, she has a right-sided posterolateral disk herniation compressing the traversing S1 root. She has some moderate foraminal stenosis on the right at L5-S1. She also does have some scar versus recurrent disk on the left at L3-L4. Reviewing her plain films, they suggest the possibility of a subtle listhesis at L4-L5. She has no scoliosis. ASSESSMENT/PLAN: Ms. Estrella is a 63-year-old female who presents with right L5 and possibly right S1 radiculopathy in the setting of disk herniation on the right at L4-L5, and a disk protrusion causing lateral recess stenosis on the right at L5-S1. She failed to improve with an epidural steroid injection. She has had prior spine surgery on the left from L3 through L5. I discussed her treatment options that include medication, physical therapy, further injections, and surgery. She feels as though she has exhausted nonoperative treatment options and wants to proceed with surgery. Surgery in her case would be a right L4 through S1 hemilaminectomy with diskectomy on the right at L4-L5 and possibly at L5-S1 as well. This was demonstrated on the spine model. Consent was obtained. Risks were documented on the consent form. We plan to keep her in the hospital at least one night after this surgery. We will have her go to Scheduling to set up a date for surgery. She will need preadmission testing. She will get a history and physical from her primary care physician. She will stop anti-inflammatories, fish oil, and aspirin at least a week before her surgery. She understands that she is at increased risk for spinal fluid leak, nerve injury, and persistent pain due to the fact that she has had prior surgery in this area. We will schedule surgery at her convenience. documented in this encounter Miscellaneous Notes Addendum Note - Mike Vicente - 08/11/2013 3:45 PM EDT Addended by: MIKE VICENTE on: 08/11/2013 03:45 PM Modules accepted: Orders documented in this encounter Plan of Treatment Upcoming Encounters Date Type Specialty Care Team Description 12/28/2021 Office Visit Neurosurgery Nancy Fountain MD [facility] NEUROSURGERY [place], [place] 0375 (Wo rk) documented as of this encounter Procedures Procedure Name Priority Date/Time Associated Diagnosis Comme nts DIFFERENTIAL, Routine 08/11/2013 3:30 PM Results for this AUTOMATED EDT procedure are i n the results section. TYPE AND SCREEN, SDP Routine 08/11/2013 3:30 PM Right lumbar (FUTURE SURGERY, EDT radiculopathy with [facility] SAME DAY L4-L5 HNP PROGRAM ONLY) ABO/RH TYPING Routine 08/11/2013 3:30 PM Right lumbar Results for this EDT radiculopathy procedure are in the results section. PROTHROMBIN TIME Routine 08/11/2013 3:30 PM Aching leg s yndrome Results for this EDT Right lumbar procedure are i n radiculopathy with the resul ts L4-L5 HNP section. CBC (WITH DIFF) Routine 08/11/2013 3:30 PM Right lumbar Result s for this EDT radiculopathy with procedure are in L4-L5 HNP the results section. ANTIBODY SCREEN Routine 08/11/2013 3:30 PM Right lumbar Result s for this EDT radiculopathy procedure are in the results section. BASIC METABOLIC Routine 08/11/2013 3:30 PM Right lumbar Result s for this PANEL (NON-FASTING) EDT radiculopathy with pr ocedure are in L4-L5 HNP the results section. [...] attending Tawanda Douglass MD IMG DX ORDERABLES EKG 12 Lead (08/11/2013 3:36 PM EDT) Component Value Ref Range Test Analysis Performed Pathologis t Method Time At Signature Ventricular rate 52 BPM MUSE SYSTEM Atrial Rate 52 BPM MUSE SYSTEM P-R Interval 124 ms MUSE SYSTEM QRS Duration 138 ms MUSE SYSTEM Q-T Interval 510 ms MUSE SYSTEM QTC Calculated 474 ms MUSE SYSTEM (Bezet) Calculated P [place] 52 degrees MUSE SYSTEM Calculated R [place] 41 degrees MUSE SYSTEM Calculated T [place] 33 degrees MUSE SYSTEM INTERPRETATION Sinus bradycardia MUSE SY STEM Possible Left atrial enlargement Right bundle branch block Abnormal ECG When compared with ECG of 25-MAY-2009 02:16, No significant change was found Confirmed by Adria Tejeda MD ([id number]) on 08/12/2013 12:17:57 P M Specimen Anatomical Collection Method Collection Time Receive d Time (Source) Location / / Volume Laterality 08/11/2013 3:36 PM 4 EDT 12:17 PM EDT Tawanda Douglass MD ECG ORDERABLES Performing Organization Address City/State/ZIP Code Phon e Number MUSE SYSTEM Differential, Automated (08/11/2013 3:30 PM EDT) P athologist Signature Neutrophils % 43.6 34.0 - CERNER 71.0 % [facility] Neutr Abs (ANC) 2.58 1.50 - CERNER 6.30 [facility] x10(3)/mcL Lymphocytes % 40.6 19.0 - CERN[place] 53.0 % [facility] Lymphocytes Abs 2.4 1.0 - 3.6 C[place] x10(3)/mcL [facility] Monocytes % 9.6 4.0 - 13.0 C[place] % [facility] Monocyte Abs 0.6 0.2 - 1.0 CERNER x10(3)/mcL [facility] Eosinophils % 5.2 0.0 - 7.0 C[place] % [facility] Eosinophils Abs 0.3 0.0 - 0.5 C[place] x10(3)/mcL [facility] Basophils % 0.8 0.0 - 2.0 CERN[place] % [facility] Basophils Abs 0.0 0.0 - 0.2 [place] x10(3)/mcL [facility] Immature Gran % 0.20 0.00 - CERNER 0.66 % MILLENNIUM Comment: Immature granulocytes(IG's)percentage an d absolute count will include metamyelocytes, myelocytes, and promyelo cytes. Blood smears from CBCs yielding IG's will be scanned manually for concor dance. If this scan disagrees with the automated IG or if promyelocytes are not ed, a manual differential will be performed. Denise Gran Abs 0.01 0.00 - 0.05 x10(3)/mcL CER NER MILLENNIUM Specimen Anatomical Collection Method Collection Time Receive d Time (Source) Location / / Volume Laterality Blood specimen 08/11/2013 3:30 PM 014 3:44 (specimen) EDT PM EDT Tawanda Douglass MD HEMATOLOGY ORDERABLES Performing Organization Address City/[facility]/ZIP Code [place] [address] [facility] Antibody screen (08/11/2013 3:30 PM EDT) [facility] Signature Ab Screen Negative [facility] Expires at [phone] [facility] [id number] on: Comment: Corrected from 09/14/13 12:00 [ Unknown] on 09/10/13 08:28 by Jackie Khalil. Specimen Anatomical Collection Method Collection Time Receive d Time (Source) Location / / Volume Laterality Blood specimen 08/11/2013 3:30 PM 014 3:47 (specimen) EDT PM EDT Resulting Agency Comment Spec In Lab Tawanda Douglass MD BLOOD BANK ORDERABLES Performing Organization Address City/[facility]/ZIP Code Phon e Number [address] [facility] ABO/Rh Typing (08/11/2013 3:30 PM EDT) athologist Signature ABORh Type O Pos [facility] Specimen Anatomical Collection Method Collection Time Receive d Time (Source) Location / / Volume Laterality Blood specimen 08/11/2013 3:30 PM 014 3:47 (specimen) EDT PM EDT Resulting Agency Comment Spec In Lab Tawanda Douglass MD BLOOD BANK ORDERABLES Performing Organization Address City/[facility]/ZIP Code [place] [address] [facility] Prothrombin Time (08/11/2013 3:30 PM EDT) P athologist Signature PT 12.0 12.0 - 15.0 [facility] Comment: [facility] Transfusion Committee Guidelines: I NR less than 2.0, PTT less than OR equal to 43.5 seconds, or Fibrinogen gre ater than or equal to 100 mg/dl indicate adequate procoagulant activity for hemostasis in patients without underlying bleeding disorders. INR 0.9 0.9 - 1.1 CERNER MILLENNIUM Specimen Anatomical Collection Method Collection Time Receive d Time (Source) Location / / Volume Laterality Blood specimen 08/11/2013 3:30 PM 014 3:44 (specimen) EDT PM EDT Resulting Agency Comment Spec In Lab Tawanda Douglass MD HEMATOLOGY ORDERABLES Performing Organization Address City/State/[place] [address] CERNER MILLENNIUM (ABNORMAL) Basic Metabolic Panel (non-fasting) (08/11/2013 3:30 PM EDT) athologist Signature Glucose Lvl 105 60 - 199 CERNER mg/dL MILLENNIUM Comment: Diabetes: >=200 mg/dL plus symp toms BUN 14 8 - 18 mg/dL CERNER MILLENNIUM Creatinine 0.96 0.70 - 1.20 mg/dL CERNER MILL ENNIUM Comment: Please note that the pediatric reference intervals supplied above were not validated at [facility]. Results from pediatri c patients should be interpreted in conjunction to the patient's age, height and muscle mass. Sodium 140 135 - 145 mmol/L CERNER LIZZETTE NIUM Potassium 4.2 3.5 - 5.0 mmol/L CERNER LIZZETTE NIUM Comment: Please note: ??Patients with WBC >100,00 0 may have falsely elevated Potassium levels. ??For accurate Potassium quantif ication in these patients send serum separator tube (gold top) for subsequent determinations. ??Contact the Clinical Chemistry Laboratory if there are any qu estions. Chloride 100 98 - 107 mmol/L CERNER MILLENN IUM CO2 31 22 - 31 mmol/L CERNER MILLENNI UM Anion Gap 9 5 - 15 mmol/L CERNER MILLENNIU M Calcium 9.0 8.5 - 10.5 mg/dL CERNER LIZZETTE NIUM Estimated GFR 59 (L) >=60 CERNER MILLENNIU M Comment: This estimated GFR (eGFR) value was calc ulated using the MDRD equation which has been validated on patients between t he ages of 18 and 70. The MDRD should not be used to assess kidney function in patients < 18 years of age or in patients with extremes of body mass, or in patients with acute kidney failure. This value should be multiplied by 1.2 f or patients. For further information please copy and past e the following links into your internet browser. http://www.nkdep.nih.gov/lab-evaluation. shtml http://www.kidney.org/professionals/ Specimen Anatomical Collection Method Collection Time Receive d Time (Source) Location / / Volume Laterality Blood specimen 08/11/2013 3:30 PM 014 3:44 (specimen) EDT PM EDT Resulting Agency Comment Spec In Lab Tawanda Douglass MD CHEMISTRY ORDERABLES Performing Organization Address City/[facility]/ZIP Code [place] [address] CERNER MILLENNIUM (ABNORMAL) CBC (with Diff) (08/11/2013 3:30 PM EDT) P athologist Signature WBC 5.9 4.0 - 10.0 CERNER x10(3)/mcL [facility]NI[facility] RBC 4.50 3.93 - CERNER 5.22 MILLENNIUM x10(6)/mcL Hemoglobin 14.2 11.2 - CERNER 15.7 gm/dL MILLENNIUM Hematocrit 42.6 34.0 - CERNER 45.0 % MILLENNIUM MCV 94.7 (H) 79.0 - CERNER 94.0 fL [facility]ENNIUM MCH 31.6 26.6 - CERNER 32.2 pg MILLENNIUM MCHC 33.3 32.0 - CERNER 36.5 gm/dL M[facility]ENNIUM Platelets 215 145 - 370 CERNER x10(3)/mcL M[facility]ENNIUM RDWSD 43.9 35.0 - CERNER 46.0 fL [facility]ENNIUM RDWCV 12.7 10.9 - CERNER 14.4 % MILLENNIUM MPV 10.8 9.0 - 12.0 CERNER fL MILLENNIUM Specimen Anatomical Collection Method Collection Time Receive d Time (Source) Location / / Volume Laterality Blood specimen 08/11/2013 3:30 PM 014 3:44 (specimen) EDT PM EDT Resulting Agency Comment Spec In Lab Tawanda Douglass MD HEMATOLOGY ORDERABLES Performing Organization Address City/State/[place] [address] [facility] documented in this encounter Visit Diagnoses Diagnosis Right lumbar radiculopathy with L4-L5 HN P - Primary Thoracic or lumbosacral neuritis or radi culitis, unspecified Aching leg syndrome Right lumbar radiculopathy with L4-L5 HN P Thoracic or lumbosacral neuritis or radi culitis, unspecified documented in this encounter Care Teams Mechanical Service Representative Relationship Specialty Start Date End Date Patricio Gabriel MD PCP - General 02/20/[address] [place] [phone] documented as of this encounter
--- OUTSIDE RECORDS SUMMARY | 2021-10-15 18:58 | XMS_ITS | Encounter Summary ---
:1950 Author Organization [facility] [place] [address] Care Team Providers Name Role Phone Patricio Gabriel MD Primary Care Provider Reason for Visit Reason Onset Date Comments Medication Refill 10/04/2013 Encounter Details Date Type Department Care Team Description 10/04/2013 Refill [facility] Majo [place], [place] [phone] Social History Tobacco Use Types Packs/Day Years Used Date Former Smoker 0.25 Quit: 07/30/19 14 Smokeless Tobacco: Never Used Sex Assigned at Date Recorded Not on file documented as of this encounter Miscellaneous Notes Telephone Encounter - Majo Cobos RN - 10/04/2013 11:56 AM EDT Reporting right buttock down posterior lat leg into foot. Constant to some degree, better with ambulation. S/p Revision right L5-S1 decompression; right L4-5 disc excision . Last script issued on 09/21;Reports having a 3- 3.5 day supply remaining of dilaudid which she is currently taking 2 every 3 hrs. Reviewed above with Dr Haines; Script as authorized by Dr haines for Dilaudid decreasing to maximum of 10 tablets for 5 days; then reducing further to max of 8 qd mailed to pt's preferred pharmacy. Explained that cannot control mailing time; that if script not received by time existing supply is depleted we would need to cancel script and have it reissued to someone in person. 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
--- OUTSIDE RECORDS SUMMARY | 2021-10-15 18:58 | XMS_ITS | Encounter Summary ---
:1950 Author Organization [facility] Address [facility] [place] [address] Care Team Providers Name Role Phone Patricio Gabriel MD Primary Care Provider Encounter Details Date Type Department Care Team Description 07/23/2013 Hospital Encounter MRI at [facility] Right lumbar radiculopathy; [facility] Chronic l ow back pain; Drive Chronic leg [place] [phone] Social History Tobacco Use Types Packs/Day Years Used Date Current Every Day Smoker 0.25 Sex Assigned at Date Recorded Not on file documented as of this encounter Medications at Time of Discharge Medication Sig Dispensed Refills Start Date End Date amitriptyline (ELAVIL) 25 Take 25 mg by 0 10/21/2013 mg tablet mouth nightly. atenolol (TENORMIN) 50 mg Take 50 mg by 0 09/17/2013 tablet mouth daily. metFORMIN (GLUCOPHAGE) 500 Take 500 mg by 0 01/18/2016 mg tablet mouth daily. traMADol (ULTRAM) 50 mg Take 50 mg by 0 09/17/2013 tablet mouth every 6 hours as needed. lisinopril 10 MG = 1 0 05/25/2009 01/18/2016 (PRINIVIL;ZESTRIL) 10 mg Tablet(s), PO, tablet Once daily documented as of this encounter Plan of Treatment Upcoming Encounters Date Type Specialty Care Team Description 12/28/2021 Office Visit Neurosurgery Nancy Fountain MD [facility] [address] [place] [address] (Wo rk) documented as of this encounter Procedures Procedure Name Priority Date/Time Associated Diagnosis Comme [facility] MRI LUMBAR SPINE Routine 07/23/2013 11:32 AM Right lumbar Resu lts for this WITH/WO CONTRAST EDT radiculopathy procedure are in Chronic low back the results pain section. Chronic leg pain, left documented in this encounter Results MRI lumbar spine with/WO [...] encounter Visit Diagnoses Diagnosis Right lumbar radiculopathy Thoracic or lumbosacral neuritis or radi culitis, unspecified Chronic low back pain Lumbago Chronic leg pain, left documented in this encounter Administered Medications Inactive Administered Medications - up to 3 most recent administrations Medication Order MAR Action Action Date Dose Rate Site gadopentetate dimeglumine Given 07/23/2013 11:18 AM EDT 14 mLs (MAGNEVIST) injection 0.2 mL/kg 0.2 mL/kg/dose, Intravenous, ONCE PRN, 1 dose, Starting on Fri07/23/13 at 1133, Until Fri07/23/13 at 1118, Per Protocol, Routine documented in this encounter Care Teams Coder Relationship Specialty Start Date End Date Patricio Gabriel MD PCP - General 02/20/[address] [place] [phone] documented as of this encounter
--- OUTSIDE RECORDS SUMMARY | 2021-10-15 18:58 | XMS_ITS | Encounter Summary ---
:1950 Author Organization [facility] [place] [address] Care Team Providers Name Role Phone Patricio Gabriel MD Primary Care Provider Reason for Referral Consultation (Routine) - Closed Specialty Diagnoses / Procedures Referred By Contact Refer red To Contact Pain Management Diagnoses Right lumbar radiculopathy Tawanda Douglass MD [facility] [address] [place] [address] [place] [address] Phone: Fax: Referral ID Status Reason Start Date Expiration Date Visits V isits Requested Authorized [id number] Closed Consult Only 07/28/2013 01/24/2014 1 1 Reason for Visit Reason Comments Back, Buttock, Leg Pain right Encounter Details Date Type Department Care Team Description 07/28/2013 Office Visit [facility] Right lu mbar [place] MD radiculopathy with [facility] L4-L5 HNP (Primary Dx) [facility] [place], [place] [facility] [id number] [place] [address] [phone] Social History Tobacco Use Types Packs/Day Years Used Date Current Every Day Smoker 0.25 Smokeless Tobacco: Never Used Sex Assigned at Date Recorded Not on file documented as of this encounter Progress Notes Tawanda Douglass MD - 07/28/2013 3:04 PM EDT CHIEF COMPLAINT: Right lower extremity pain equal to low back pain. HISTORY OF PRESENT ILLNESS: Ms. Estrella is a 63-year-old female I am seeing in consultation for Raciel Sharma in regards to pain that radiates from right side of her low back to her right buttock, posterolateral thigh, and lateral leg to the dorsum of the right foot. This pain came on insidiously about three months ago. Note that she did have a left L3-L4 discectomy and a left L4-L5 foraminotomy by Dr. Lu in 2004. She did not do well initially after that surgery, though eventually she did get some relief of the left lower extremity pain. She was doing reasonably well up until a few months ago. Her pain is associated with some numbness in the right lateral leg and the dorsum of the right foot. She notes some weakness about the right lower extremity. Her pain tends to be worse with prolonged sitting or standing, and nothing tends to relieve it. It does keep her up at night. She denies constitutional symptoms or changes in her bowel or bladder function. She was treated by a chiropractor and physical therapist with minimal benefit. She has taken tramadol and ibuprofen without much relief. She has not had any recent injections. She did have injections in the past for her left-sided radicular pain, and they were not that helpful. PAST MEDICAL HISTORY: Hypertension and diabetes. PAST SURGICAL HISTORY: Left L3-L4 discectomy and left L4-L5 foraminotomy in 2004, hysterectomy, cholecystectomy, pilonidal cyst excision, and hernia repair. MEDICATIONS: Reviewed and are in eD-H. ALLERGIES: REVIEWED AND ARE IN ED-H. FAMILY HISTORY: Cancer and heart disease. SOCIAL HISTORY: The patient is retired. She smokes a few cigarettes per day and does not drink. REVIEW OF SYSTEMS: All negative except musculoskeletal above. PHYSICAL EXAMINATION: The patient is 5 feet 5 inches and 150 pounds. General: The patient is comfortable in no acute distress. Back: She has a well-healed midline scar. Her back is tender to palpation over right SI joint and right sciatic notch. She can flex 70 degrees and extend only to neutral, with extension being more painful. Neurologic exam: She walks with an antalgic gait. She is able to heel walk and toe walk. Motor exam reveals 5/5 strength in all lower extremity motor groups. She has normal sensory exam. Reflexes are 2/4 at the right knee, 1/4 at the left knee, 2/4 at the right ankle, and trace at the left ankle. She has a positive straight leg raise on the right. She has no clonus, Babinski is negative. Hip exam: She has normal, painless range of motion of both hips. Vascular exam: She has palpable pulses bilaterally. IMAGING: Plain films of the lumbar spine from 05/16/2013 demonstrate no scoliosis. On the lateral view, she may have a very subtle spondylolisthesis at L4 and L5. She had degenerative changes throughout the lumbar spine. There are no flexion-extension views. MRI from 07/23/2013 demonstrates surgical site over L4, and the caudal portion of L3 spinous process appears to have been taken down. She has some material on the left lateral recess at L3-L4 contributing to some moderate lateral recess stenosis. At L4-L5, she may have a very subtle low grade listhesis. She has a broad-based disc bulge as well as what appears to be a superimposed small extrusion on the right that goes somewhat cranially and contributes to lateral recess stenosis compressing the traversing L5 root. She has moderate lateral recess stenosis on the left. She has a moderate central stenosis at this level also. At L5-S1, she has a right paracentral disc bulge that contributes to lateral recess stenosis that is at least moderate on the right side. ASSESSMENT/PLAN: Ms. Estrella is a 63-year-old female who presents with right lower extremity pain that seems consistently with L5 radiculopathy. She has had prior surgery on the left at L3-L4 and L4-L5. She does have a disc herniation at the right at L4-L5 compressing the transversing L5 root. She also has some lateral recess stenosis on the right at L5-S1, it is difficult to say how much this is contributing to her symptoms. I discussed her treatment options that include continued medication, physical therapy, injections, and surgery. She wants to go ahead with an injection, so I will order a right L4-L5 transforaminal epidural steroid injection. I believe this has potential benefit both for diagnosis and treatment. If her symptoms are markedly improved following this injection, we can discuss just doing a focal decompression on the right at L4-L5 where she has the small disc extrusion. If her symptoms fail to improve with an injection, I think the outcomes of the surgery are somewhat less predictable. We also might consider doing the L5-S1 level also as she does have some lateral recess stenosis there. We can determine whether or not to include that level after a discussion and seeing how she responds to the L4-L5 injection. I will plan to follow up with her on an as-needed basis. If she wants to repeat an injection, she can call us. documented in this encounter H&P Notes Provider, Gilberto - 08/25/2013 11:02 AM EDT documented in this encounter Plan of Treatment Upcoming Encounters Date Type Specialty Care Team Description 12/28/2021 Office Visit Neurosurgery Nancy Fountain MD [facility] [place], [place] [address] (Wo rk) Scheduled Referrals Name Type Priority Associated Diagnoses Order S chedule Referral to Pain Outpatient Referral Routine Right lumbar Orde red: Clinic radiculopathy with 4 L4-L5 HNP documented as of this encounter Visit Diagnoses Diagnosis Right lumbar radiculopathy with L4-L5 HN P - Primary Thoracic or lumbosacral neuritis or radi culitis, unspecified documented in this encounter Care Teams Hydrotherapist Relationship Specialty Start Date End Date Patricio Gabriel MD PCP - General 02/20/[address] [place] [phone] documented as of this encounter
--- OUTSIDE RECORDS SUMMARY | 2021-10-15 18:58 | XMS_ITS | Encounter Summary ---
:1950 Author Organization [facility] [place] [address] Care Team Providers Name Role Phone Malinda Mcmillan MD Primary Care Provider Encounter Details Date Type Department Care Team Description 09/14/2013 - Hospital Encounter 5 Tawanda Colon Right rukhsana mbar radiculopathy; 09/17/2013 [facility] MD Ethan Chronic low back pain; [facility] S/P Revision Right L4-S1 dec ompression, Right L4-5 diskectomy - 09/14/13 (Evonne); [facility] Atrial fibrillation with RVR [facility] [place] [id number] [phone] Social History Tobacco Use Types Packs/Day Years Used Date Former Smoker 0.25 Quit: 07/30/19 14 Smokeless Tobacco: Never Used Sex Assigned at Date Recorded Not on file documented as of this encounter Last Filed Vital Signs Vital Sign Reading Time Taken Comments Blood Pressure 97/60 09/17/2013 2:00 PM EDT Pulse 66 09/17/2013 2:00 PM EDT Temperature 36.7 ??C (98.1 ??F) 09/17/2013 2:00 PM EDT Respiratory Rate 16 09/17/2013 2:00 PM EDT Oxygen Saturation 94% 09/17/2013 2:00 PM EDT Inhaled Oxygen Concentration - - Weight 68 kg (149 lb 14.6 oz) 09/15/2013 7:39 PM EDT Height 165.1 cm (5' 5) 09/15/2013 7:39 PM EDT Body Mass Index 24.95 09/15/2013 7:39 PM EDT documented in this encounter Discharge Instructions Discharge InstructionsOnel Rutherford MD - 09/17/2013 1:40 PM EDT Activity: 1. You may perform your daily activities as tolerated but minimize bending at the waist greater than90 degrees, twisting around your waist, or lifting anything heavier than 5-10 lbs (about a full gallon of water.) 2. In general, guide your activity by the thought that if it hurts, don???t do it. 3. In addition, we recommend taking several walks every day after surgery and gradually increasing your distance and duration over the next 2-4 weeks. Diet: 1. Eat your normal diet, with adequate amounts of protein and fiber. 2. The pain medications you are taking can cause constipation, so increase your intake of fluids andfiber while you are taking them. 3. You should also take an [id number] stool softener, such as Colace or Senna, to facilitate abowel movement. Drivin. You are not allowed to drive if you are still requiring narcotic pain medication to manage your discomfort. 2. In general, you may begin to drive once you are off of your pain medications and you are comfortable. Call the Spine Center or your Primary Care Physician if you have questions or concerns. Medication: 1. You are being discharged on a narcotic pain medication. Common side effects of this medication include drowsiness, nausea, and constipation. You should only take the smallest amount of pain medication that adequately controls your pain. You have been discharged on a long acting narcotic which should be tapered as written on the prescription. 2. You may take Tylenol (acetaminophen) around the clock as directed on the package insert for the next 10 days to help reduce the amount of narcotic medication you need. Do not exceed 4000mg of acetaminophen in 24 hrs. You have had a spinal fusion surgery. DO NOT take any NSAID anti-inflammatory medication such as Aleve, Ibuprofen, Naprosyn, Motrin, or Advil. 3. If you need a renewal of your pain medication, please contact the Spine Center Prescription Line at [phone]. PRESCRIPTION RENEWAL REQUESTS CAN TAKE UP TO 3 DAYS TO FILL. YOU WILL BE REQUIRED TOPICK UP YOUR NARCOTIC REFILL PRESCRIPTION IN PERSON AT [facility] OR IT CAN BE MAILED TO YOUR PHARMACY. Wound Care/Shower/Bath: 1. For the first 72 hours after surgery, shower with a clear plastic Tegaderm dressing covering yourwound to keep it dry. 2. After 72 hours you may remove the plastic dressing. At this point you may allow water to run overthe wound but do not scrub the surrounding skin. Gently pat dry with a clean, dry towel. 3. At this time you may replace the plastic dressing with clean, dry gauze held in place with tape. Any bandage over the wound should be dry at all times and should be replaced if wet. 4. 4 days after surgery the wound can be left uncovered if there is no continued drainage. (You should continue to cover the wound for as long as there is continued drainage, please see the section below on when to call the Spine Center.) 5. Do not soak the incision underwater (ie lakes, pools, hot tubs, bath tubs, etc) for at least fourweeks until the incision has completely healed. 6. After the gauze dressing is removed the paper strips (steristrips) should be kept in place. You have absorbable sutures under your skin that do not need to be removed. They are covered by the steri-strips. The steri-strips may begin to fall off, and you may trim them as they peel back. After 14 days you can remove the remaining steri-strips if they have not fallen off already. PLEASE CALL US AT [phone] TO SPEAK WITH A SPINE CENTER NURSE IF YOU EXPERIENCE THE FOLLOWING: ?? Fevers greater than 101.5 degrees Fahrenheit ?? Chills or night sweats ?? Nausea or vomiting ?? Wound Redness or drainage after 5 days ?? New weakness, numbness, or tingling in your hands or feet ?? Incontinence of bowel or bladder ?? Any questions or concerns Important Phone Numbers: Clinical issues, nurse questions: [phone] Medication renewals: [phone] Appointments for Rebecca Diego : [phone] Follow Up Appointments: 1. You will have follow-up appointments at [facility] as indicated in the ???Future Appointments and Orders?? section of your discharge summary. X-rays have been ordered for you prior to this appointment you will need to report to the Radiology department, desk 3T, 1 hour prior to your spine center appointment. (10/13/13 at 12:00 PM) 2. We have scheduled an appointment for you in Dr. Mcmillan's clinic on 09/23/13 at 1:00 PM to discussthe changes and outpatient studies that were recommended by the Hospital Medicine team. Future Appointments Date Time Provider Department Center 10/13/2013 1:00 PM Tawanda Diego MD [facility] documented in this encounter Medications at Time of Discharge Medication Sig Dispensed Refills Start Date End Date acetaminophen (TYLENOL) Take 2 tablets by 30 tablet 1 09/17 500 mg tablet mouth every 8 hours. polyethylene glycol Take 17 g by mouth 14 each 0 09/18/19 14 09/20/2013 (MIRALAX) 17 gram packet 2 times daily for 3 days. atenolol (TENORMIN) 25 mg Take 1 tablet by 30 tablet 0 08/3001/18/2016 tablet mouth daily. HYDROmorphone (DILAUDID) Take 1-3 tablets by 100 tablet 0 09/21/2013 2 mg tablet mouth every 3 hours as needed for Pain. oxyCODONE (OXYCONTIN) 10 Take 1 tablet by 13 tablet 0 09/1710/14/2013 mg CR tablet mouth twice daily for 5 days, then take 1 tablet by mouth daily for the next 3 days. senna-docusate Take 1-4 tablets by 60 tablet 0 09/17/2013 0 10/21/2013 (PERICOLACE) 8.6-50 mg mouth 2 times per tablet daily. aspirin 325 mg EC tablet Take 1 tablet by 30 tablet 0 09/1701/18/2016 mouth daily. amitriptyline (ELAVIL) 25 Take 25 mg by mouth 0 10/21/2013 mg tablet nightly. metFORMIN (GLUCOPHAGE) Take 500 mg by 0 01/18/2016 500 mg tablet mouth daily. lisinopril 10 MG = 1 0 05/25/2009 01/18/2016 (PRINIVIL;ZESTRIL) 10 mg Tablet(s), PO, Once tablet daily documented as of this encounter Progress Notes Chantell Hollins RN - 09/17/2013 3:31 PM EDT Patient did well today. She has been discharged home today with VNA services. Pain well controlled with Dilaudid. She was evaluated by PT today, one assist/walker. Patient was discontinued from telemetry, normal sinus rhythm. BP soft this morning 80/52 patient asymptomatic. Improved after first ambulation, checked frequently 102/75, 134/72. Padmini Lam RN - 09/17/2013 2:36 PM EDT Per team report, pt with new onset Afib during night and BP has been running low as well. Pt has a medicine consult in place for today currently on tele monitoring, medications being adjusted. Anticipate discharge potentially this wknd once plan of care finalized. Pt has received a walker for use at home and referrals for [facility]NA [facility]. Will ask RS to update VNA potential d/c this wknd. Lolly Lainez, PT - 09/17/2013 11:35 AM EDT Physical Therapy Visit 2-3 Patient Profile: Yesi Estrella is a 63 y.o femasle admitted on 09/14/2013 by Tawanda Anthony MD for scheduled Revision Right L4-S1 decompression; Right L4-5 diskectomy Staff Communication/Mobility Recommendations: Pt. to utilize FWW and S to ambulate with nursing staff 3x/day ~ 150 ft Social History: Patient lives with her [place]/ her who is retired Stairs: 3 stairs to enter w 2 railings. One level. Pt will stay in guest room where bed is lower. Bath tub shower, grab bars. Can use plastic lawn furniture for seat in shower Baseline Mobility: Indep but w/ RLE pain and numbness affecting her function Equipment at home:none Precautions/Special Considerations:No bending, twisting or lifting >5-10 pounds. Interval Hx: Went into afib with RVR last night, coverted after given her home cardiac meds, no further events on tele, Subjective: Patient states ???The Dr said that it would take awhile for the pain in my R leg to resolve?? Objective: Vitals: SpO2: 98% on RA, HR 65. BP 113/64 before walking, 115/65 after walk Pain: Tolerable but w/ cont. Low back soreness and painful numbness R buttock and posterior thigh down to knee Sensation: Numbness reported RLE, to knee. Reported that the numbness decreases w/ walking Strength: Mildly decreased RLE r/t numbness/pain, functional otherwise. ROM: ER RLE when initially amb. Reports it feels tight to internally rotate. Functional Mobility: Supine>< L side lying><sit w S only (pt has been using the log roll technique at home for quite awhile) Sit><stand to/from recliner using walker rather that armrests. Does this safely. Pt is challenged moving sit><stand, unable to keep RLE under her so stands up on LLE only Gait: Ambulated 150 ft using FWW S only Gait pattern: Steady, reciprocal pattern despite reported numbness RLE. When she starts out observedto have ER of RLE but pt corrected w/ concentration and she then reported that RLE felt better Education: The patient and educated on precautions, progressive walking program, home PT advised Assessment: Pt is s/p 09/14/13 Revision Right L4-S1 decompression; Right L4-5 diskectomy. She conts to have painful numbness in R buttock and posterior thigh which is the worst when moving sit>stand, less so when ambulating. Her vitals are stable today and MDs plan to DC pt home today. Pt reports that she feelsa bit nervous about this. present in room and reassures that he will be with her 21/10.All PTgoals have been met and pt looks safe for home DC when medically stable Pt will benefit from cont PT at home to address his/her functional deficits to restore prior level of function. G-Code: Mobility Status Modifier CURRENT CJ - At least 20 percent but less than 40 percent impaired, limited or restricted PROJECTED CI - At least 1 percent but less than 20 percent impaired, limited or restricted DISCHARGE CJ - At least 20 percent but less than 40 percent impaired, limited or restricted G Code Rationale: This G-Code and these disability modifiers were selected as the primary therapy goal based upon the patient's functional evaluation Current ability measures, co-morbidities and clinical judgement were also used to select the disability modifier. This Patient's current G-Code functional level is 20- 40% impaired Goals: (to be achieved by DC 09/17/13) Pt will be knowledgeable of above noted precautions. Pt will perform the following activities w/ tolerable level of a pain Pt will move supine<>sit independently using log roll technique. Pt will move sit<>stand w FWW independently Pt will ambulate at least 150 feet using FWW independently Pt will negotiate 3 steps using 2 railings w/ CGA> S of to demonstrate understanding of therapeutic interventions/precautions to support the care ofthe patient. Plan: DC PT Equipment needs: FWW, 3 in 1 commode Discharge Recommendations: Patient would benefit from continued therapeutic interventions 2-3 times a week as provided in a home environment to progress toward functional goals. Physical Therapist recommends: Occupational Therapy consult Total treatment time: 40 mins Total timed treatment: 40 minutes functional activities form home managment LOLLY LAINEZ PT Pager: [phone] Tawanda Diego MD - 09/17/2013 7:42 AM EDT Orthopaedic Surgery Progress Note Surgery: Revision Right L4-S1 decompression; Right L4-5 diskectomy Subjective/Events: Went into afib with RVR last night, coverted after given her home cardiac meds, no further events on tele, otherwise her pain is much better than yx and she has been ambulating well. Pre-op Symptoms: Right lower extremity pain Pre-op symptoms currently present: Some persistent RLE pain and numbness in the right leg and foot. On exam, has some R EHL weakness similar to baseline and numbness on dorsum of R foot Objective: Increased R leg pain overnight Vitals: Temp: [36.7 ??C (98.1 ??F)-36.8 ??C (98.2 ??F)] Heart Rate: [70-110] Resp: [18] BP: (78-98)/(47-68) SpO2: [96 %] I/O last 3 completed shifts: In: 1440 [P.O.:1140; I.V.:300] Out: 3250 [Urine:3250] Exam: General: mild distress, awake/alert, responds to questions Resp: Breathing comfortably Abd: Soft, nontender, nondistended. Back: Dressing c/d/i, no hematoma Extremity exam: Motor:Motor: Segment Muscle Action R L L3 Quadriceps Knee extension 5 5 L4,5 Hamstring Knee Flexion 5 5 L4 Tibialis anterior Dorsiflexion 5 5 L5 Extensor hallucis Great toe extension 4 5 S1 Gastrocnemius, FHL Plantar flexion 5 5 Sensory: Sensation (light touch) (0=absent, 1-impaired, 2=normal: Segment location Right Left L2 mid-ant thigh 2 2 L3 med femoral condyle 2 2 L4 medial mal 1 2 L5 dorsum foot, 3rd MT 1 2 S1 lat heel 1 2 Last wbc, hgb, hct plt Recent Labs Basename 09/15/13 0601 WBC 15.3* HGB 12.0 HCT 35.2 A/P: 63 y.o. year old female POD#3 s/p Revision Right L4-S1 decompression; Right L4-5 diskectomy. Medicine consult for afib. Piotr needs tele with no events x 24 hrs. Mobilize today and plan for dc home tomorrow. Currently with low BP after cardiac meds, assymptomatic so no tx currently, but can bolus if becomes so when working with PT. -WBAT, no bend/twist/lift -reg diet -po pain meds -no anticoag -tele -medicine consult -dressing change as needed -fu Evonne 4 weeks post op with x-rays Spine Attending I have seen and examined the patient and agree with the resident's findings and plan. Pt did well yesterday, ambulated around pod without any leg pain. Having expected surgical site pain, some RLE painif she sits in bed too long. Had episode of afib with HR 137 last night, improved with atenolol and diltaizem likely related to holding atenolol due to low BP. She was asymptomatic during the event. Neuro exam unchanged, documented above. Will have medicine evaluate pt to help determine appropriate meds for d/c.Will cont to mobilize, home when medicine feels she is ready for d/c. Daniel Castro - 09/17/2013 1:39 AM EDT S: At 2200, patient HR jumped to 150s and SBP at 140; patient said she thought she felt her heart racing a little bit, but otherwise no symptoms She normally takes atenolol 50mg qday at home, but skipped the past 2 days' doses b/c of SBP < 100. O: Temp: [36.4 ??C (97.5 ??F)-36.7 ??C (98.1 ??F)] Heart Rate: [110-137] Resp: [18] BP: (98-132)/(68-75) SpO2: [95 %] Gen: AAO x3 CV: Irregular rhythm Resp: No increase WOB EKG: Afib w/RVR A/P: Yesi Estrella is a 63 y.o. female POD3 s/p revision Right L4-S1 decompression, Right L4-5 diskectomy now in Afib w/RVR -First reordered home atenolol 50mg PO to be given at 2300 -Serial recheck of HR demonstrate repeated reversion to RVR -Curbside w/medicine to discuss giving Diltiazem dose followed by dilt gtt to control rate ADDENDUM: While setting up for the administration of Diltiazem, patient's HR normalized to sinus rhythm in the80s; SBP dropped further to 78, patient asymptomatic throughout; this likely due to the effect of the atenolol Did not give diltiazem; did bolus LR 500cc x 1 Padmini Lam RN - 09/16/2013 1:32 PM EDT Met with pt his afternoon and she is currently reclined in bed receiving IVF. Pt explains she had a difficult night with pian last night. RN reports adjustments made to pain medications. Pt has received her FWW from [facility] and has decided to get an over the [employer] commode thru [facility] in her home town. He will secure. Pt feels she has improved pain management for now and is anticipating d/c tomorrow, home with VNA servuces. Tea Mittal - 09/16/2013 11:54 AM EDT chChaplaincy Encounter Note Patient Name: Yesi Estrella : [id number] MR#: [id number] Admit Date: 09/14/2013 9:06 PM Hospital Day 2 days Narrative: Visited to introduce and assess acceptance of [facility] services. Assessment: [facility] services accepted. Intervention and Outcome: Follow-up: Will coordinate follow-up services with [facility] staff. Time in Direct Care: 5 minutes. Tea Pink 09/16/2013 Tawanda Diego MD - 09/16/2013 6:32 AM EDT Orthopaedic Surgery Progress Note Surgery: Revision Right L4-S1 decompression; Right L4-5 diskectomy Patient Active Problem List Diagnosis Code ??? Chronic leg pain 729.5, 338.29 ??? Chronic low back pain 724.2, 338.29 ??? Right lumbar radiculopathy with L4-L5 HNP 724.4 ??? Thoracic or lumbosacral neuritis or radiculitis, unspecified 724.4 Subjective/Events: Patient denies chest pain, shortness of breath, dizziness, headache, abdominal pain, nausea, vomiting, hoarseness, difficulty swallowing. Pain well-controlled. Pre-op Symptoms: Right lower extremity pain Pre-op symptoms currently present: Some persistent RLE pain and numbness in the right leg and foot. On exam, has some R EHL weakness similar to baseline and numbness on dorsum of R foot Objective: Increased R leg pain overnight Vitals: Temp: [37 ??C (98.6 ??F)-37.1 ??C (98.8 ??F)] Heart Rate: [90-100] Resp: [18] BP: (95-108)/(53-60) SpO2: [96 %-100 %] I/O last 3 completed shifts: In: 4907.9 [P.O.:1440; I.V.:3467.9] Out: 1885 [Urine:1835; Blood:50] I/O this shift: In: 300 [P.O.:300] Out: 1000 [Urine:1000] Exam: General: mild distress, awake/alert, responds to questions Resp: Breathing comfortably Abd: Soft, nontender, nondistended. Back: Dressing c/d/i, no hematoma Extremity exam: Motor:Motor: Segment Muscle Action R L L3 Quadriceps Knee extension 5 5 L4,5 Hamstring Knee Flexion 5 5 L4 Tibialis anterior Dorsiflexion 5 5 L5 Extensor hallucis Great toe extension 4 5 S1 Gastrocnemius, FHL Plantar flexion 5 5 Sensory: Sensation (light touch) (0=absent, 1-impaired, 2=normal: Segment location Right Left L2 mid-ant thigh 2 2 L3 med femoral condyle 2 2 L4 medial mal 1 2 L5 dorsum foot, 3rd MT 1 2 S1 lat heel 1 2 Last wbc, hgb, hct plt Recent Labs Basename 09/15/13 0601 WBC 15.3* HGB 12.0 HCT 35.2 A/P: 63 y.o. year old female POD#2 s/p Revision Right L4-S1 decompression; Right L4-5 diskectomy. Will add a long acting narcotic, continue to work with PT. -WBAT, no bend/twist/lift -reg diet -dc miller -po pain meds -no anticoag -dressing change pod3 as needed -fu Evonne 4 weeks post op with x-rays Spine Attending I have seen and examined the patient and agree with the resident's findings and plan. Pt with somewhat more pain today, primarily at the surgical site with some pain radiating to R buttock and posterior thigh. No pain going distal to her knee but has some residual numbness below the knee. R EHL weakness similar to baseline. Will cont to mobilize today, work on pain control. Can use toradol while in hospital and use ibuprofen in addition to narcotic on discharge. Can be d/c'ed home when cleared by PTand pain controlled. Tawanda Diego MD - 09/15/2013 3:50 PM EDT Orthopaedic Surgery Post-Operative Progress Note Surgery: Revision Right L4-S1 decompression; Right L4-5 diskectomy Patient Active Problem List Diagnosis Code ??? Chronic leg pain 729.5, 338.29 ??? Chronic low back pain 724.2, 338.29 ??? Right lumbar radiculopathy with L4-L5 HNP 724.4 ??? Thoracic or lumbosacral neuritis or radiculitis, unspecified 724.4 Subjective/Events: Patient denies chest pain, shortness of breath, dizziness, headache, abdominal pain, nausea, vomiting, hoarseness, difficulty swallowing. Pain well-controlled. Pre-op Symptoms: Right lower extremity pain Pre-op symptoms currently present: Some persistent RLE pain and numbness, although less than preoperatively Objective: Vitals: Temp: [36.7 ??C (98.1 ??F)-37 ??C (98.6 ??F)] Heart Rate: [67-68] Resp: [18] BP: (91-129)/(58-105) SpO2: [94 %-97 %] I/O last 3 completed shifts: In: 3010 [P.O.:360; I.V.:2650] Out: 1135 [Urine:1085; Blood:50] I/O this shift: In: 970 [P.O.:960; I.V.:10] Out: 150 [Urine:150] Exam: General: NAD, awake/alert, responds to questions Resp: Breathing comfortably Abd: Soft, nontender, nondistended. Back: Dressing c/d/i, no hematoma Extremity exam: Motor:Motor: Segment Muscle Action R L L3 Quadriceps Knee extension 5 5 L4,5 Hamstring Knee Flexion 5 5 L4 Tibialis anterior Dorsiflexion 5 5 L5 Extensor hallucis Great toe extension 4 5 S1 Gastrocnemius, FHL Plantar flexion 5 5 Sensory: Sensation (light touch) (0=absent, 1-impaired, 2=normal: Segment location Right Left L2 mid-ant thigh 2 2 L3 med femoral condyle 2 2 L4 medial mal 1 2 L5 dorsum foot, 3rd MT 1 2 S1 lat heel 1 2 Last wbc, hgb, hct plt Recent Labs Basename 09/15/13 0601 WBC 15.3* HGB 12.0 HCT 35.2 A/P: 63 y.o. year old female POD#1 s/p Revision Right L4-S1 decompression; Right L4-5 diskectomy. Vitals stable, uop adequate. -WBAT, no bend/twist/lift -reg diet -dc miller -po pain meds -no anticoag -dressing change pod3 as needed -fu Evonne 4 weeks post op with x-rays Spine Attending I have seen and examined the patient and agree with the resident's findings and plan. Pt having someincisional pain this am, minimal pain radiating down her RLE but she did feel numbness in the right leg and foot. On exam, has some R EHL weakness similar to baseline and numbness on dorsum of R foot. She will cont to work with PT, home when cleared. Padmini Lam RN - 09/15/2013 1:55 PM EDT This is a very pleasant 63 yo woman who underwent Revision L4-S1 decompression and diskectomy with Dr Diego on 09/14/13. Pt has [employer] insurance. Met with pt and her as she is just finishing a walk with aide. Pt is using FWW and reports mod pain at this time. 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 Pt is available to assist with needs at discharge and she an aunt who will also come and stay and assist as needed. We discussed additional assist oif VNA and pt and are agreeable. Pt and request FWW and also over toilet extension seat. They request securing from [facility] and would like delivered to inpt room. Pt aware she may not have coverage for DME. Will secure DME and notify VNA. A list of [facility]???s which serve the geographic area which the patient resides. Patient requests referral to [facility] Referrals sent via [employer] by [employer]. Anticipate pt will d/c once pain controlled adequately. Tel call to Annamaria mackey in [place] per pt request. Provided script and demos as well as clinical to central intake for delivery of FWW and toilet seat. Pt aware she may not have coverage for elevated TS and still wants to secure. Will have DME delivered to [facility] if poss. Tawanda Diego MD - 09/14/2013 9:36 PM EDT Orthopaedic Surgery Post-Operative Progress Note Surgery: Revision Right L4-S1 decompression; Right L4-5 diskectomy Patient Active Problem List Diagnosis Code ??? Chronic leg pain 729.5, 338.29 ??? Chronic low back pain 724.2, 338.29 ??? Right lumbar radiculopathy with L4-L5 HNP 724.4 ??? Thoracic or lumbosacral neuritis or radiculitis, unspecified 724.4 Patient seen: In room Subjective/Events: Patient denies chest pain, shortness of breath, dizziness, headache, abdominal pain, nausea, vomiting, hoarseness, difficulty swallowing. Pain well-controlled. Pre-op Symptoms: Right lower extremity pain Pre-op symptoms currently present: Some persistent RLE pain and numbness, although less than preoperatively Objective: Vitals: Temp: [36.2 ??C (97.2 ??F)-37.2 ??C (99 ??F)] Heart Rate: [55-93] Resp: [16-20] BP: (93-132)/(44-81) SpO2: [92 %-99 %] I/O last 3 completed shifts: In: 2000 [I.V.:1999] Out: 195 [Urine:145; Blood:50] I/O this shift: In: 770 [P.O.:120; I.V.:650] Out: 40 [Urine:40] Exam: General: NAD, awake/alert, responds to questions Resp: Breathing comfortably Abd: Soft, nontender, nondistended. Back: Dressing c/d/i, no hematoma Extremity exam: Motor:Motor: Segment Muscle Action R L L3 Quadriceps Knee extension 5 5 L4,5 Hamstring Knee Flexion 5 5 L4 Tibialis anterior Dorsiflexion 5 5 L5 Extensor hallucis Great toe extension 4 5 S1 Gastrocnemius, FHL Plantar flexion 5 5 Sensory: Sensation (light touch) (0=absent, 1-impaired, 2=normal: Segment location Right Left L2 mid-ant thigh 2 2 L3 med femoral condyle 2 2 L4 medial mal 1 2 L5 dorsum foot, 3rd MT 1 2 S1 lat heel 1 2 Radiology: Clinical History Intraoperative level confirmation Comparison None Technique Intraoperative lateral lumbar spine. Findings A metallic device projects posterior to the L5/S1 interspace. A/P: 63 y.o. year old female POD#0 s/p Revision Right L4-S1 decompression; Right L4-5 diskectomy. Vitals stable, uop adequate. - continue all post-operative care Spine Attending I have seen and examined the patient in the PACU at 1800 on 09/14 and agree with the resident's findings and plan. Kandace Chong RN - 09/14/2013 7:27 PM EDT 191 - report from RAFA Riley and care resumed. Monitor alarms set per pacu protocols. at bedside to visit and updated - supported. Has all pt's belongings with him. Pt alert and oriented. channing Nesbitt. Pt does state that right leg is slight numb and tingling - slight more than her normal. Painmostly in lower back 5/10. Pt using software specialist dilaudid as ordered and lissa well. Pt states pain level much better than her normal pain level. Also states sore around breast area and along right hip - no redness noted, no breakdown noted. Pt was prone for procedure - insructed pt maybe due to positioning for surgery. 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 Vss. IVF infusing via left hand piv. Right hand piv saline lo cked. bilat venodynes on. Skin intact, afebrile. Back dressing cdi. No drains. BS taken - 142. Pt last took po metformin yesterday am. Pt also take HTN po meds in roldan - last taken yesterday before bed.Miller with marginal uop - clear yellow urine. Repositioned catheter and will monitor closely. Pt denies nausea. 1999 - pt sleeping and pain level improved with better use of software specialist button. Vss. uop improved after ivf given by previous RN. Dressing remains cdi. 2020 - turned pt back to flat - pt did well repositioning herself. gd uop. Vss. Pain controlled. Report called to RAFA salomon and pt readied for transfer to [facility] via bed. Ketty Brxaton - 09/14/2013 6:37 PM EDT Pt arrived from OR to PACU @ 1713. Alarms active and audible per PACU protocol. A/Ox4, VSS. C/o 10/10 pain in her back and R leg. IV dilaudid given, PO oxycodone and tylenol given, VENDING ROUTE DRIVER teaching with return demonstration showing understanding. Dressing CDI. No N/V. Repositioned on L side with pillow support for comfort. Skin reddened around sternum r/t postioning in OR but is blanching. 183-- Pain 4/10 and tolerable for pt. C/o numbness in R leg and states that she had numbness prior to surgery. documented in this encounter H&P Notes Tawanda Diego MD - 09/14/2013 1:24 PM EDT Patient seen and examined. Agree with assessment by PCP. Pt cont to have severe RLE pain and LBP. Onexam, has 4/5 strength R EHL and peroneals with numbness on lateral border and dorsum of R foot. +SLR on R. Will proceed with surgery as planned (right L4-S1 hemilaminectomy with diskectomies as indicated). Patient is a full-code. Tawanda Diego MD - 09/14/2013 1:23 PM EDT Patient Name: Yesi Estrella Patient Age: 63 y.o. Birthdate: 1950 Admit date: 09/14/2013 Attending Physician: Tawanda Diego MD Please see H+P by PCP. documented in this encounter Procedure Notes Provider, Scanning - 09/18/2013 9:19 AM EDTAssociated Order(s): SCAN DOC: IMPLANTABLE DEVICES Provider, Scanning - 09/18/2013 9:19 AM EDTAssociated Order(s): SCAN DOC: OUTREACH SPECIALIST documented in this encounter Miscellaneous Notes Miscellaneous - Provider, Scanning - 09/18/2013 9:19 AM EDT Miscellaneous - Provider, Scanning - 09/18/2013 9:19 AM EDT Discharge Summary - Onel Rutherford MD - 09/17/2013 1:22 PM EDT Discharge Summary Patient Name: Yesi Estrella Patient Age: 63 y.o. Language: Tongan Race: White Ethnicity: Not nor Admit date: 09/14/2013 Discharge date and time: 09/17/13 Attending Physician: Tawanda Diego MD Discharge Physician: Evonne Follow-up Recommendations for Providers: While in the hospital, Mrs. Estrella had a single episode of atrial fibrillation that converted to sinus rhythm after giving her normal home dose of atenolol. The Hospital Medicine team was consulted and recommended changing her atenolol dose to 25 mg daily (due to some hypotension while in the hospital), to begin a full dose aspirin daily and to undergo a Transthoracic Echocardiogram as an outpatient. Follow up with Dr. Diego in 4 weeks with X-rays Inpatient Provider Contact Information: Dr. Diego Spine: [phone] After hours and weekends, call [facility] Slunk Skinner, , and have Orthopedic resident paged. Discharge Diagnoses (Hospital Problems) and Secondary Diagnoses (Chronic Problems): Active Hospital Problems Diagnosis ??? S/P Revision Right L4-S1 decompression, Right L4-5 diskectomy - 6/17/ (Evonne) ??? Atrial fibrillation with RVR Resolved Hospital Problems Diagnosis Date Resolved No resolved problems to display. Active Non-Hospital Problems Diagnosis ??? Thoracic or lumbosacral neuritis or radiculitis, unspecified ??? Chronic leg pain ??? Chronic low back pain ??? Right lumbar radiculopathy with L4-L5 HNP Operations/Major Procedures: 09/14/2013 1. L4 through S1 revision hemilaminectomy with medial facetectomy and foraminotomies. 2. Right L4-L5 diskectomy. Surgeon(s) and Role: * Tawanda Diego MD - Primary * Ryan Hernandez MD - Resident-Surgeon Manuel History of Presentation: Ms. Estrella is a 63-year-old female who underwent a left-sided L3 through L5 decompressive procedure in the past. She developed severe right lower extremity pain in the setting of right-sided stenosis from L4 through S1 including a right L4-L5 disk herniation. After she failed to improve with nonoperative treatment, she elected to undergo revision surgery. Hospital Course: Yesi Estrella was admitted for the above operation. Operative course was uneventful. On POD#1 she was allowed out of bed ad marco, with no bending or twisting, no lifting more [id number], and no pushing or pulling. These parameters were reinforced by physical therapy. Yesi Estrella was changed to oral pain medications and VENDING ROUTE DRIVER was discontinued on POD#1. The miller catheter wasremoved on POD#1 and she was voiding without difficulty. On POD#2 the dressing was dry and intact and the wound was benign. She did not have a bowel movement prior to discharge but was passing flatus and taking PO without difficulty. Her blood pressure medications were held on POD#2 for low normal blood pressures. On the evening of POD#2 she experienced palpitations and was found to be in AFIB with RVR. She was given her normal home dose of atenolol and after a short period converted back to sinus rhythm. She was hemodynamically stable throughout the episode. Hospital Medicine was consulted to evaluate her new onset AF and mild hypotension. Their recommendations included cutting the atelolol dose in half to 25 mg daily, starting a full dose aspirin for stroke risk and to schedule a TTE as an outpatient. Prior to discharge on POD#3 Yesi Estrella was afebrile, with stable vital signs, successfully cleared PT and was deemed stable for discharge to home. An appointment has been made to meet with her PCP next week to discuss these changes. Vital Signs at Discharge: Weight: Wt Readings from Last 1 Encounters: 06/18/14 68 kg (149 lb 14.6 oz) Height: Ht Readings from Last 1 Encounters: /18/14 165.1 cm (5' 5) HC: HC Readings from Last 1 Encounters: No data found for HC BMI: Body mass index is 24.95 kg/(m^2). Last value Range last 24 hrs Temperature Temp: 36.8 ??C (98.2 ??F) Temp: [36.4 ??C (97.5 ??F)-37.4 ??C (99.3 ??F)] Heart Rate Heart Rate: 72 Heart Rate: [70-137] Blood Pressure BP: 80/52 mmHg @qqcygiy03@ Respiratory Rate Resp: 18 Resp: [18] SpO2 SpO2: 94 % @ixfbjdcg18@ Art BP BP (Arterial Line): -- Functional and Cognitive Status: Normal and Stable Important Studies and Lab Data: Labs: Last 3 wbc, hgb, hct plt Recent Labs Basename 09/17/13 0935 09/15/13 0601 08/11/13 1530 WBC 9.2 15.3* 5.9 HGB 10.3* 12.0 14.2 HCT 30.7* 35.2 42.6 PLATELET 168 206 215 Last 3 Lytes Recent Labs Basename 09/17/13 0935 09/15/13 0601 08/11/13 1530 NA 135 138 140 K 3.9 4.1 4.2 CL 100 103 100 CO2 27 28 31 BUN 11 15 14 CREATININE 0.79 0.77 0.96 Studies: Xr Lumbar Spine 1 View 09/14/2013 Examination LUMBAR SPINE 1 VIEW/XPORT Clinical History Intraoperative level confirmation Comparison None Technique Intraoperative lateral lumbar spine. Findings A metallic device projects posterior to the L5/S1 interspace. Pending Studies and Lab Data: none Transfusions: No Discharge Conditions/Prognosis: Stable, awake, and alert. Mobilizing with walker/crutches, pain controlled on oral medications. Discharge to: Home Updated Allergies/ADRs: Allergies Allergen Reactions ??? Meperidine Hcl Anaphylaxis ??? Prochlorperazine CIS - JITTERY Immunizations Given this Hospitalization: Immunization History Administered Date(s) Administered ??? Influenza Vaccine (Novel) [id number], Injectable 01/29/2009 ??? Influenza Vaccine, Whole 01/29/2009 Discharge Medications: Your Medications As of 09/17/2013 2:10 PM Notice Some of the medications listed here do not show instructions, such as how often to take the medication. Ask your doctor or nurse how to use these medications. New Medications Dose Details acetaminophen 500 mg tablet Commonly known as: TYLENOL Take 2 tablets by mouth every 8 hours. 1000 mg Quantity: 30 tablet Refills: 1 aspirin 325 mg EC tablet Take 1 tablet by mouth daily. 325 mg Quantity: 30 tablet Refills: 0 HYDROmorphone 2 mg tablet Commonly known as: DILAUDID Take 1-3 tablets by mouth every 3 hours as needed for Pain. 2-6 mg Quantity: 100 tablet Refills: 0 oxyCODONE 10 mg CR tablet Commonly known as: oxyCONTIN Take 1 tablet by mouth twice daily for 5 days, then take 1 tablet by mouth daily for the next 3 days. Quantity: 13 tablet Refills: 0 polyethylene glycol 17 gram packet Commonly known as: MIRALAX Take 17 g by mouth 2 times daily for 3 days. 17 g Quantity: 14 each Refills: 0 senna-docusate 8.6-50 mg per tablet Commonly known as: PERICOLACE Take 1-4 tablets by mouth 2 times daily. 1-4 tablet Quantity: 60 tablet Refills: 0 Continued medications with new dosing Dose Details atenolol 25 mg tablet Commonly known as: TENORMIN Take 1 tablet by mouth daily. What changed: - medication strength - dose 25 mg Quantity: 30 tablet Refills: 0 Continued medications, unchanged Dose Details amitriptyline 25 mg tablet Commonly known as: ELAVIL Take 25 mg by mouth nightly. 25 mg Refills: 0 CIS FREE TEXT MED (Ask your doctor or nurse how to take this medication.) Refills: 0 lisinopril 10 mg tablet Commonly known as: PRINIVIL;ZESTRIL 10 MG = 1 Tablet(s), PO, Once daily Refills: 0 metFORMIN 500 mg tablet Commonly known as: GLUCOPHAGE Take 500 mg by mouth daily. 500 mg Refills: 0 STOPPED Medications traMADol 50 mg tablet Commonly known as: ULTRAM Smoking Status at Discharge: History Smoking status ??? Former Smoker -- 0.2 packs/day ??? Quit date: 07/29/2013 Smokeless tobacco ??? Never Used Instructions Given to Patient at Discharge: There are no Patient Instructions on file for this visit. General Instructions Activity: 1. You may perform your daily activities as tolerated but minimize bending at the waist greater than90 degrees, twisting around your waist, or lifting anything heavier than 5-10 lbs (about a full gallon of water.) 2. In general, guide your activity by the thought that if it hurts, don???t do it. 3. In addition, we recommend taking several walks every day after surgery and gradually increasing your distance and duration over the next 2-4 weeks. Diet: 1. Eat your normal diet, with adequate amounts of protein and fiber. 2. The pain medications you are taking can cause constipation, so increase your intake of fluids andfiber while you are taking them. 3. You should also take an hsur-igm-kyidzun stool softener, such as Colace or Senna, to facilitate abowel movement. Drivin. You are not allowed to drive if you are still requiring narcotic pain medication to manage your discomfort. 2. In general, you may begin to drive once you are off of your pain medications and you are comfortable. Call the Spine Center or your Primary Care Physician if you have questions or concerns. Medication: 1. You are being discharged on a narcotic pain medication. Common side effects of this medication include drowsiness, nausea, and constipation. You should only take the smallest amount of pain medication that adequately controls your pain. You have been discharged on a long acting narcotic which should be tapered as written on the prescription. 2. You may take Tylenol (acetaminophen) around the clock as directed on the package insert for the next 10 days to help reduce the amount of narcotic medication you need. Do not exceed 4000mg of acetaminophen in 24 hrs. You have had a spinal fusion surgery. DO NOT take any NSAID anti-inflammatory medication such as Aleve, Ibuprofen, Naprosyn, Motrin, or Advil. 3. If you need a renewal of your pain medication, please contact the Spine Center Prescription Line at [phone]. PRESCRIPTION RENEWAL REQUESTS CAN TAKE UP TO 3 DAYS TO FILL. YOU WILL BE REQUIRED TOPICK UP YOUR NARCOTIC REFILL PRESCRIPTION IN PERSON AT [facility] OR IT CAN BE MAILED TO YOUR PHARMACY. Wound Care/Shower/Bath: 1. For the first 72 hours after surgery, shower with a clear plastic Tegaderm dressing covering yourwound to keep it dry. 2. After 72 hours you may remove the plastic dressing. At this point you may allow water to run overthe wound but do not scrub the surrounding skin. Gently pat dry with a clean, dry towel. 3. At this time you may replace the plastic dressing with clean, dry gauze held in place with tape. Any bandage over the wound should be dry at all times and should be replaced if wet. 4. 4 days after surgery the wound can be left uncovered if there is no continued drainage. (You should continue to cover the wound for as long as there is continued drainage, please see the section below on when to call the Spine Center.) 5. Do not soak the incision underwater (ie lakes, pools, hot tubs, bath tubs, etc) for at least fourweeks until the incision has completely healed. 6. After the gauze dressing is removed the paper strips (steristrips) should be kept in place. You have absorbable sutures under your skin that do not need to be removed. They are covered by the steri-strips. The steri-strips may begin to fall off, and you may trim them as they peel back. After 14 days you can remove the remaining steri-strips if they have not fallen off already. PLEASE CALL US AT [phone] TO SPEAK WITH A SPINE CENTER NURSE IF YOU EXPERIENCE THE FOLLOWING: ?? Fevers greater than 101.5 degrees Fahrenheit ?? Chills or night sweats ?? Nausea or vomiting ?? Wound Redness or drainage after 5 days ?? New weakness, numbness, or tingling in your hands or feet ?? Incontinence of bowel or bladder ?? Any questions or concerns Important Phone Numbers: Clinical issues, nurse questions: [phone] Medication renewals: [phone]: Evonne : [phone] Follow Up Appointments: 1. You will have follow-up appointments at [facility] as indicated in the ???Future Appointments and Orders?? section of your discharge summary. X-rays have been ordered for you prior to this appointment you will need to report to the Radiology department, desk 3T, 1 hour prior to your spine center appointment. (10/13/13 at 12:00 PM) 2. We have scheduled an appointment for you in Dr. Mcmillan's clinic on 09/23/13 at 1:00 PM to discussthe changes and outpatient studies that were recommended by the Hospital Medicine team. Future Appointments Date Time Provider Department Center 10/13/2013 1:00 PM Tawanda Diego MD [facility] Future Appointments and Orders Future Appointments: Provider: Department: Dept Phone: Center: 10/13/2013 1:00 PM Tawanda Diego MD Sp[facility] [phone] [facility] Future Orders Please Complete By Expires Referral to Home Health [PKQ3115 CPT(R)] Process Instructions: Scheduling Instructions: Comments: DOCUMENTATION FOR VNA SERVICES (INCLUDING THOSE PATIENTS WITH MEDICARE COVERAGE REQUIRING HOME VNA SERVICES AND/OR HOSPICE SERVICES) PATIENT'S LOCATION: Yesi Greene Sameer [address] [place] [phone] (home) Lens Assistant's Name: self and In discussion with the attending physician, it is certified that this patient is under their care and that they, or a Nurse Practitioner,Clinical Nurse specialist or Physician Hand Shaker who is working directly with them, had a face to face encounter that meets the physician face to face encounter requirements with this patient on 09/15/2013 The encounter with the patient was in whole, or in part, for the following medical condition, which is the primary reason for home health care services: Revision L4-S1 decompression and diskectomy In discussion with the provider, it is certified that, based on their findings, the following services are medically necessary for home health services. To provide the following care/treatments with the clinical findings supporting the need for servicesas follows: HOME CARE ORDERS: RN ORDERS:Assess wound or incision, vital signs, cardiopulmonary status, nutrition, hydration, elimination, meds effectiveness and management. PT ORDERS: Continue rehab for endurance, gait stability and strength with mobility and transfers. Home safety evaluation. OT: assess and continue rehab for managing ADL's.- evaluate need for [facility] PHONE: [phone] FAX: [phone] Start of care: Day after discharge FOR MEDICARE ONLY: (please delete this section if not Medicare) In discussion with the attending physician, it is certified that the clinical findings support that this patient is homebound because absences from home require considerable and taxing effort due to: recent surgery to spine and need for walking aide to maintain safe ambulation Please note that any additional orders needs or changes will need to be obtained from this patient'sPCP: MALINDA MCMILLAN MD [address] / MERGED WITH [facility] [id number] All A agencies which cover the area of patient's residence have been reviewed, either verbally or in writing, and patient/family have chosen the home health care agency noted Questions: Responses: Agency name and contact information [facility] Patient location post discharge Home What services are requested Registered Nurse Physical Therapy Start date Responsible MD post discharge contact info PCP Echocardiogram South/External [[id number] Custom] 09/17/13 09/16/14 Process Instructions: Scheduling Instructions: Comments: Questions: Responses: Does patient require sedation? GA rationale: Is a Bubble Study requested? No Does the patient have Congenital Heart Disease? Should this service/procedure be billed to the research sponsor? Which DH location will this be performed? External Elevated toilet seat [EQ50 Custom] Process Instructions: Scheduling Instructions: Comments: Over toilet seat with arms. Questions: Responses: Vendor Name/Contact information: [employer] rolling [EQ134 Custom] Process Instructions: Scheduling Instructions: Comments: Front wheel walker. 68 kg, 165 cm. Questions: Responses: Vendor Name/Contact information: [place] [facility] Primary Care Provider: MALINDA MCMILLAN MD [phone] Consult Note - Bhavna Harris MD - 09/17/2013 10:08 AM EDT Inpatient Hospital Medicine - Initial Consultation Date of Consultation: 09/17/2013 Consult Service: Medicine Consult Service Responsible Attending: Bahvna Harris MD Place of Service: Inpatient Unit Reason for Consult: We are seeing Yesi Estrella at the request of Tawanda Diego MD of the Ortho service for the evaluation of afib with RVR. I have reviewed the available records, interviewed, and examined the patient. Active Problem List: # S/p Revision Right L4-S1 decompression; Right L4-5 diskectomy on 09/14 # pAF with RVR s/p conversion to NSR Secondary Problems: # NIDDM # HTN # HLD HPI: Ms. Estrella is a 63 yo F with a pmhx notable for NIDDM, HTN, HLD and lumbar radiculopathy s/p L4-S1 decompression and L4-L5 diskectomy on 09/14. Her home atenolol has been held due to post-op HYPOtension and overnight she went into normotensive AF with RVR. Her atenolol was resumed at home dose (50 mg) resulting in conversion to NSR, however this AM she has again become HYPOtensive prompting medicine consult for further management recommendations. She remains in NSR this AM. The pt states that she developed palpitations and fluttering sensation soon after returning from a walk around the pod last evening. She has never had similar symptoms before. She denied any chest painduring the episode but did endorse some back pain. At present she is completely asymptomatic despitebeing a bit hypotensive. No dizziness, orthopnea, PND or LE edema. No hx of heart disease and has never had TTE. Review of Systems: GENERAL HEENT CV PULM X All negative X All negative All negative X All negative Weight loss Headache Chest Pain Non-productive cough Weight gain Vision change X Palpitations Productive cough Fevers Sinus congestion Orthopnea Wheezing Chills Hoarseness LE edema Hemoptysis Night sweats Epistaxis PND Pleuritic pain Fatigue Syncope SOB Claudication [facility] X All negative X All negative X All negative X All negative Arthralgias Frequency Heat intolerance Blood in stool Myalgias Urgency Cold intolerance Dysphagia Weakness Hematuria Polydipsia Odynophagia Stiffness Flank pain Polyphagia Abdominal discomfort Dysuria Cushingoid Constipation Foamy urine Diarrhea Discharge Nausea/Vomiting LYMPH SKIN NEURO PSYCH X All negative X All negative X All negative All negative Swollen nodes Rash Seizures Depressed affect Tender nodes Ulcers Tremors Occupational stress Diffuse nodes Bruising Spasticity X Anxiety Local nodes Tanned skin Focal weakness Insomnia Night sweats Telangiectasias Diplopia Paresthesias Dizziness Past Medical History # Chronic LBP # Lumbar radiculopathy # Chronic leg pain Outpt Meds: No current facility-administered medications on file prior to encounter. Current Outpatient Prescriptions on File Prior to Encounter Medication Sig Dispense Refill ??? amitriptyline (ELAVIL) 25 mg tablet Take 25 mg by mouth nightly. ??? atenolol (TENORMIN) 50 mg tablet Take 50 mg by mouth daily. ??? metFORMIN (GLUCOPHAGE) 500 mg tablet Take 500 mg by mouth daily. ??? traMADol (ULTRAM) 50 mg tablet Take 50 mg by mouth every 6 hours as needed. ??? lisinopril (PRINIVIL;ZESTRIL) 10 mg tablet 10 MG = 1 Tablet(s), PO, Once daily ??? CIS Free Text Med - HORMONE REPLACEMENT THERAPY Inpatient Meds: Continuous: LR @ 100 cc/hr Scheduled: APAP 1G Q8H Amitryptyline 25 mg QHS Atenolol 50 mg QD Nexium Lisinopril 10 mg QD Metformin 500 mg QD Oxycontin 10 mg BID NBO's PRN: HYDROmorphone, ondansetron Allergies: Allergies Allergen Reactions ??? Meperidine Hcl Anaphylaxis ??? Prochlorperazine CIS - JITTERY Family History: Mother: Breast ca, DM, SSS Social History: Tobacco: Quit smoking 3 months ago. Prior to that was very light smoker. ~10 pack-year hx total. EtOH: Rare Illicits: Denies Living Situation: [place] Vitals: Last value Range last 24 hrs Temperature Temp: 36.8 ??C (98.2 ??F) Temp: [36.4 ??C (97.5 ??F)-37.4 ??C (99.3 ??F)] Heart Rate Heart Rate: 72 Heart Rate: [70-137] Blood Pressure BP: 80/52 mmHg BP: (78-132)/(47-75) Respiratory Rate Resp: 18 Resp: [16-18] SpO2 SpO2: 94 % SpO2: [94 %-96 %] I's and O's: Intake/Output Summary (Last 24 hours) at 09/17/13 1009 Last data filed at 09/17/13 0900 Gross per 24 hour Intake 900 ml Output 2250 ml Net -1350 ml Weights: Patient Vitals for the past 168 hrs: Weight 09/15/13 1939 68 kg (149 lb 14.6 oz) 09/14/13 1206 68.04 kg (150 lb) Examination: General: Pleasant, alert, appropriate, in NAD. Appears stated age. HEENT: EOMI, PERRL, anicteric sclera. Oropharynx clear w/o lesions. Moist mucous membranes Neck: Supple with normal ROM. No obvious LAD. JVD not elevated. Cardiac: Normal S1 and S2, Regular rate and rhythm; No murmrs/gallops/rubs. Respiratory: Nonlabored. Clear to auscultation bilaterally; No wheezes/ rhonci/ rales. Abd: + BS; soft, non-tender, non-distended, no obvious masses. Ext: WWP without le edema, cyanosis or clubbing. DPP 2+ bilaterally. Neuro: II-XII grossly intact. Alert and orientated, no-focal deficits, sensation intact to crude touch Skin: No rashs, no lesions, no petechiae Labs: CBC: Recent Labs Basename 09/17/13 0935 09/15/13 0601 08/11/13 1530 WBC 9.2 15.3* 5.9 HGB 10.3* 12.0 14.2 PLATELET 168 206 215 Chemistry: Recent Labs Basename 09/15/13 0601 08/11/13 1530 07/23/13 0956 NA 138 140 -- K 4.1 4.2 -- CL 103 100 -- CO2 28 31 -- BUN 15 14 -- CREATININE 0.77 0.96 0.79 GLUCOSE 120 105 -- Recent Labs Basename 09/15/13 0601 08/11/13 1530 CALCIUM 8.3* 9.0 MAGNESIUM -- -- PHOS -- -- Micro: None Diagnostic Studies: L-spine: A metallic device projects posterior to the L5/S1 interspace. EKG: AF with RVR. VR of 160. RBBB. TWI's in II, III and AVF Assessment: Yesi Estrella is a 63 y.o. female with NIDDM, HTN, HLD and lumbar radiculopathy s/p L4-S1 decompression and L4-L5 diskectomy on 09/14 with post-op course c/b transient episode of new-onset AF with RVR last night with conversion to NSR following resumption of her home dose of atenolol 50 mg. Medicine is being consulted for recommendations with regard to further work-up and management in the settingof relative hypotension after restarting her atenolol. In light of her HOTN, would discharge her home on 25 mg atenolol (half her home dose) and have her f/u with her PCP for further adjustment. Would also recommend outpt TTE to evaluate for valve disease or structural abnormalities. Although her CHADS2 score is 2 and her SVLCU9LYNL score is 3, this was a transient and isolated episode in the post-operative setting and would therefore recommend starting only full-dose ASA and deferring further anticoag management to her outpt provider. Recommendations: - Cut home atenolol in half to 25 mg QD - Close f/u with PCP (scheduled for next Friday) - Obtain TTE as outpt - Start full dose ASA Case was discussed with Dr. Harris who agrees with recommendations as documented above. Consult service will continue to follow patient. X Recommendations are above, please page if further consultation required. OZZY ADKINS MD 09/17/2013 Consult pager #[phone] Personal pager #[phone] Attending Staff Documentation I have examined the patient myself and reviewed all labs and studies personally. Please see Dr. Rocha's documentation for details of the patient history of presentation and data. I have discussed, reviewed and agree with the documented history with ROS, physical findings, labs/studies, assessment and plan of care. Bhavna Harris MD Plan of Care - Pito Liu RN - 09/17/2013 6:23 AM EDT Problem: General Plan of Care Goal: Plan of Care Review Walked in sanchez x1, back to bed developed rapid heart rate. MD notified, Metoprolol, EKG ordered and carried out. EKG showed AFIB with RVR, Tele place, convert to normal SR before intervention. BP remain < 100 after bolus of LR. Plan of Care - Pito Liu RN - 09/16/2013 5:15 AM EDT Problem: General Plan of Care Goal: Plan of Care Review Suffering of R leg pain 01/07, ambulated slowly with walker, unwilling to OOB to bathroom this am due to R leg pain, voided using bed hernandez. Consult Note - Veronica Jolley RN - 09/15/2013 12:32 PM EDT Certified Wound Care Nurse Situation: Post-op visit to assess anterior skin for pressure related skin breakdown following pronepositioning in the operating room. Background: Yesi Estrella was placed in the prone position on 09/14/2013 during surgery. The anterior skin was assessed. Pressure Ulcer Assessment: Location No Injury Injury Present* Face (L and/or R) x Lip (L and/or R) (Upper or Lower) x Anterior Chest (L and/or R) x Anterior Iliac Crests (L and/or R) x Knees (L and/or R) x Other: Assessment: No areas of pressure related injury were noted following surgery. Patient complained of tenderness on the right breast, no redness or irritation noted Recommendation: None needed. Discussed findings with: RN: Charo Mallory Initial Assessments - Lolly Lainez, PT - 09/15/2013 9:24 AM EDT Physical Therapy Evaluation Post-Operative Spine Patient Profile: Yesi Estrella is a 63 y.o femasle admitted on 09/14/2013 by Tawanda Anthony MD for scheduled Revision Right L4-S1 decompression; Right L4-5 diskectomy Staff Communication/Mobility Recommendations: Pt. to utilize FWW and CGA to ambulate with nursing staff 3x/day ~ 150 ft PMH: Past Medical History Diagnosis Date ??? High blood pressure ??? Angina pectoris PSH: Past Surgical History Procedure Date ??? Hysterectomy, total abdominal ??? Cholecystectomy ??? Lumbar laminectomy ??? Hernia repair ??? Laminec/facetect/foramin, each addnl 09/14/2013 ADD'L INTERSPACES CX., THORACIC, LUMBAR performed by Tawanda Diego MD at [facility] MAIN OR ??? Redo excis lumbar disc 09/14/2013 LAMINOTOMY W\DECOMPRESSION, ONE LVL, LUMBAR ,RE-EXPL (INCLDNG PART. FACETECTOMY, FORAMINOTOMY &\OR DISCECTOMY) performed by Tawanda Diego MD at [facility] MAIN OR Social History: Patient lives with her in [place], [place] w/ her who is retired Stairs: 3 stairs to enter w 2 railings. One level. Pt will stay in guest room where bed is lower. Bath tub shower, grab bars. Can use plastic lawn furniture for seat in shower Baseline Mobility: Indep but w/ RLE pain and numbness affecting her function Equipment at home:none Precautions/Special Considerations:No bending, twisting or lifting >5-10 pounds. Post-operative course: Pt w/ reported dizziness, some nausea, found to be slightly hypotension and normal BP med dose help by RN Subjective: Patient states ???Yes I think I would benefit from a walker and my toilet is low so I think the idea of having a commode for over the toilet is a good idea?? Objective: Vitals: SpO2: 90s% on RA, HR 60-70s Pain: Low back soreness, reports painful numbness R buttock and posterior thigh Sensation: Numbness reported RLE, to foot. Reported that the numbness decreased after walking ~ 75 ft Strength: Mildly decreased RLE r/t numbness/pain, functional otherwise Functional Mobility: Supine>< L side lying><sit w S only (pt has been using the log roll technique at home for quite awhile) Sit><stand to/from recliner and bed w/ cues for technique, using FWW Gait: Ambulated 150 ft using FWW CGA 1 to close vga. Gait pattern: Steady, reciprocal pattern despite reported numbness RLE Informed Consent: The patient and understand and agree to the PT treatment plan and goals. Education: The patient and have been educated on Bed mobility, Transfers, Assistive device/technique, Exercise, Positioning, Safety , Precautions/protocol, Gait , Role of therapy, Balance and Discharge planning and verbalize understanding. Patient status, treatment, and mobility recommendations discussed with nursing staff. Assessment: Pt is POD#1 Revision Right L4-S1 decompression; Right L4-5 diskectomy. She is moving quite well despite low back pain and uncomfortable numbness RLE Anticipat steady progress toward safe DC to homein 1-2 days w/ and will discuss value of home PT. Pt will benefit from PT to address his/her functional deficits to restore prior level of function. G-Code: Mobility Status Modifier CURRENT CJ - At least 20 percent but less than 40 percent impaired, limited or restricted PROJECTED CI - At least 1 percent but less than 20 percent impaired, limited or restricted DISCHARGE Not Discharged Yet - Ongoing G Code Rationale: This G-Code and these disability modifiers were selected as the primary therapy goal based upon the patient's functional evaluation Current ability measures, co-morbidities and clinical judgement were also used to select the disability modifier. This Patient's current G-Code functional level is 20- 40% impaired Goals: (to be achieved by DC 09/17/13) Pt will be knowledgeable of above noted precautions. Pt will perform the following activities w/ tolerable level of a pain Pt will move supine<>sit independently using log roll technique. Pt will move sit<>stand w FWW independently Pt will ambulate at least 150 feet using FWW independently Pt will negotiate 3 steps using 2 railings w/ CGA> S of to demonstrate understanding of therapeutic interventions/precautions to support the care ofthe patient. Plan: Patient to be seen daily for physical therapy to include Bed mobility, Transfers, Assistive device/technique, Exercise, Positioning, Safety , Precautions/protocol, Gait , Role of therapy, Balance and Discharge planning Patient agrees to the plan as stated. Equipment needs: FWW, 3 in 1 commode Discharge Recommendations: Patient would benefit from continued therapeutic interventions 2-3 times a week as provided in a home environment to progress toward functional goals. 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 Op Note - Tawanda Diego MD - 09/14/2013 4:59 PM EDT [facility] Operative Note Patient Name: Yesi Estrella : [id number] MR#: [id number] Case Date: 09/14/2013 Surgeon: Surgeon(s) and Role: * Tawanda Diego MD - Primary * Ryan Hernandez MD - Resident PREOPERATIVE DIAGNOSIS: Spinal stenosis, right L4-L5 disk herniation. POSTOPERATIVE DIAGNOSIS: Spinal stenosis, right L4-L5 disk herniation. PROCEDURES: 1. L4 through S1 revision hemilaminectomy with medial facetectomy and foraminotomies. 2. Right L4-L5 diskectomy. ANESTHESIA: General. OPERATIVE FINDINGS: There was severe lateral recess stenosis on the right at L4-L5 due to facet hypertrophy and a right-sided disk herniation. There was moderate foraminal stenosis at this level. At L5-S1, there was moderate to severe foraminal stenosis and severe lateral recess stenosis due to facet hypertrophy. At the conclusion of the case, the right L4, L5, and S1 roots were fully decompressed. INDICATION FOR PROCEDURE: Ms. Vallieres is a 63-year-old female who underwent a left-sided L3 through L5 decompressive procedure in the past. She developed severe right lower extremity pain in the setting of right-sided stenosis from L4 through S1 including a right L4-L5 disk herniation. After she failed to improve with nonoperative treatment, she elected to undergo revision surgery. DESCRIPTION OF PROCEDURE: The patient was taken to the operating room. General anesthesia was administered. She was positioned prone on the Harshal spine table with all bony prominences well padded and her legs in the sling. The back was prepped with Hibiclensand DuraPrep and draped in the usual sterile fashion. A time-out was performed to identify the patient and the planned procedure. She was received preoperative antibiotics. The area of the planned incision was injected with 20 mL of 0.25% Marcaine with epinephrine. Her old incision was opened. The electrocautery was used to dissect in the midline. We found the remnants of the L3 and L5 spinous processes. There was no L4 spinous process remaining. The paraspinal muscles were elevated off the laminae of L4, L5 and S1 on the right side. A Gopi was placed caudal to the right L5 lamina, and an intraoperative x-ray was obtained demonstrating our level. The ligamentum flavum was elevated off the cranial edge of the S1 lamina. We removed the flavum from the interspace. We proceeded cranial with our laminectomy, removing the right side of the L5 lamina, the soft tissue in the L4-L5 interspace and the right L4 lamina up to the level of L4 pedicle. There was a significant amount of adhesive scarring, primarily at the L4-L5 level. All the scar material was gently teased off the dura atraumatically. We then turned our attention to the lateral decompression. We performed a foraminotomy on the right at L4-L5, and confirmed the L4 root was fully decompressed. We performed a medial facetectomy and confirmed that the traversing L5 root was fully decompressed. We performed a right L5-S1 foraminotomy and confirmed the L5 root was decompressing the foramen. We performed a right L5-S1 medial facetectomy and confirmed the S1 root was decompressed in the lateral recess. We then turned our attention to inspecting the disk spaces. We gently mobilized the L5 root medially, exposing the disk herniation on the right L4-L5. A slit annulotomy was created, and the extruded material emerged. This was removed with a pituitary along with any superficial, free fragments. We did not enter deep in the disk space or remove any well-fixed material. We also mobilized the right S1 root to inspect the L5-S1 disk. There was a firm broad-based disk bulge with no clear herniation, and the S1 root was fully decompressed, so we elected not to perform a diskectomy at this level. The wound was copiously irrigated, and hemostasis was achieved using FloSeal and the bipolar. After irrigation, we noted a focal, 1 mm in diameter area of thinning of the dura at approximately the level of the L5 pedicle. We inspected this and found that there is no defect in the dura, and with Valsalva maneuver, there was no spinal fluid leak. Nonetheless, we did apply a small DuraGen patch over this that was fixed in place with DuraSeal. The fascia was closed using interrupted #1 Vicryl. The subcutaneous tissue was closed using interrupted 2-0 Vicryl. The skin was closed using a 4-0 Monocryl in a running, subcuticular fashion. An additional 20 mL of 0.25% Marcaine was injected along the incision. The wound was dressed with Mastisol, Steri-Strips, sterile gauze, and Tegaderm. The patient was flipped back to the hospital bed and awakened from general anesthesia. She was taken to the recovery room in stable condition. There were no obvious complications. OR Attestation - Tawanda Diego MD - 09/14/2013 4:59 PM EDT Attestation: Case Date: 09/14/2013 I was present and I participated during the entire procedure (does not need to include opening and closing). TAWANDA DIEGO MD 09/14/2013 Brief Op Note - Tawanda Diego MD - 09/14/2013 4:56 PM EDT Brief Operative Note Patient Name: Yesi Estrella : [id number] MR#: [id number] Case Date: 09/14/2013 Surgeon: Surgeon(s) and Role: * Tawanda Diego MD - Primary * Ryan Hernandez MD - Resident Preoperative diagnosis: Spinal stenosis, right L4-5 disk herniation Postoperative diagnosis: Spinal stenosis, right L4-5 disk herniation Procedure(s): Revision right L4-S1 decompression, right L4-5 diskectomy Anesthesia: General Findings: There was severe lateral recess stenosis on the right at L4-5 due to a disk herniation andfacet hypertrophy. There was moderate-severe right L5-S1 foraminal stenosis. There was severe right L5-S1 lateral recess stenosis due to facet hypertrophy. At the conclusion of the case, the right L4, L5, and S1 roots were fully decompressed. No CSF. Complications: None Fluids: 1500 Estimated Blood Loss: 50 Urine: 100 Drains: None Disposition: awakened from anesthesia, extubated and taken to the recovery room in a stable condition, having suffered no apparent untoward event. Condition: doing well without problems (Please see the Surgical Encounter Summary for any Implant and Specimen details pertinent to this patient.) Miscellaneous - ProviderGilberto - 09/14/2013 2:31 PM EDT documented in this encounter Plan of Treatment Upcoming Encounters Date Type Specialty Care Team Description 12/28/2021 Office Visit Neurosurgery Nancy Fountain MD [facility] [place] [id number] (Wo rk) documented as of this encounter Procedures Procedure Name Priority Date/Time Associated Diagnosis Comme nts IMPLANTABLE DEVICES 09/18/2013 9:19 Resul ts for this SCAN AM EDT procedure are i n the results section. OUTREACH SPECIALIST SCAN 09/18/2013 9:19 Resu lts for this AM EDT procedure are i n the results section. HEMOGRAM STAT 09/17/2013 9:35 Results for this AM EDT procedure are i n the results section. DIFFERENTIAL, STAT 09/17/2013 9:35 Results for this AUTOMATED AM EDT procedure are i n the results section. CBC (WITH DIFF) STAT 09/17/2013 9:35 AM EDT MAGNESIUM STAT 09/17/2013 9:35 Results for this AM EDT procedure are i n the results section. BASIC METABOLIC PANEL STAT 09/17/2013 9:35 Res ults for this (NON-FASTING) AM EDT procedure are in the results section. POCT GLUCOSE Routine 09/17/2013 7:36 Results for this AM EDT procedure are i n the results section. EKG 12-LEAD STAT 09/16/2013 11:51 Chronic low back pain Re sults for this PM EDT procedure are i n the results section. HEMOGRAM Routine 09/15/2013 6:01 Results for this AM EDT procedure are i n the results section. DIFFERENTIAL, Routine 09/15/2013 6:01 Results for this AUTOMATED AM EDT procedure are i n the results section. CBC (WITH DIFF) Routine 09/15/2013 6:01 AM EDT BASIC METABOLIC PANEL Routine 09/15/2013 6:01 Res ults for this (NON-FASTING) AM EDT procedure are in the results section. POCT GLUCOSE Routine 09/14/2013 7:26 Results for this PM EDT procedure are i n the results section. LAMINOT W DCOMPR 1LVL Routine 09/14/2013 4:55 Right lumbar LUMB, REXPL INC PART PM EDT radiculopathy FACECT/ FORAMOT +OR DISCECT XR LUMBAR SPINE 1 Routine 09/14/2013 2:47 Results for this VIEW PM EDT procedure are i n the results section. LAMINOTOMY 09/14/2013 1:33 Right lumbar W\DECOMPRESSION, ONE PM EDT radiculopathy LVL, LUMBAR ,RE-EXPL (INCLDNG PART. FACETECTOMY, FORAMINOTOMY &\OR DISCECTOMY) (WRVU 18.76) MODIFIER S1 09/14/2013 1:33 Right lumbar PM EDT radiculopathy MODIFIER L5 09/14/2013 1:33 Right lumbar PM EDT radiculopathy MODIFIER L4 09/14/2013 1:33 Right lumbar PM EDT radiculopathy EA ADD'L VERTEBRAL 09/14/2013 1:33 Right lumbar SEGMENT CERVICAL, PM EDT radiculopathy THORACIC, LUMBAR (WRVU 3.47) POCT GLUCOSE Routine 09/14/2013 12:14 Results for this PM EDT procedure are i n the results section. ADD'L INTERSPACES Routine 09/14/2013 11:51 Right lumbar CX., THORACIC, LUMBAR AM EDT radiculopathy documented in this encounter Results SCAN DOC: OUTREACH SPECIALIST (09/18/2013 9:19 AM EDT) Narrative 09/18/2013 9:35 AM EDT Procedure Note Provider, Scanning - 09/18/2013 9:19 AM EDT Scanning Provider MEDIA MGR SCAN EXT ORDR/RSLT SCAN DOC: IMPLANTABLE DEVICES (09/18/2013 9:19 AM EDT) Narrative 09/18/2013 9:19 AM EDT Procedure Note Provider, Scanning - 09/18/2013 9:19 AM EDT Scanning Provider MEDIA MGR SCAN EXT ORDR/RSLT Differential, Automated (09/17/2013 9:35 AM EDT) P athologist Signature Neutrophils % 67.1 34.0 - CERNER 71.0 % MILLENNIUM Neutr Abs (ANC) 6.13 1.50 - CERNER 6.30 MILLENNIUM x10(3)/mcL Lymphocytes % 25.0 19.0 - CERNER 53.0 % MILLENNIUM Lymphocytes Abs 2.3 1.0 - 3.6 CERNER x10(3)/mcL MILLENNIUM Monocytes % 6.1 4.0 - 13.0 CERNER % MILLENNIUM Monocyte Abs 0.6 0.2 - 1.0 CERNER x10(3)/mcL MILLENNIUM Eosinophils % 1.5 0.0 - 7.0 CERNER % MILLENNIUM Eosinophils Abs 0.1 0.0 - 0.5 CERNER x10(3)/mcL MILLENNIUM Basophils % 0.2 0.0 - 2.0 CERNER % MILLENNIUM Basophils Abs 0.0 0.0 - 0.2 CERNER x10(3)/mcL MILLENNIUM Immature Gran % 0.10 0.00 - CERNER 0.66 % MILLENNIUM Comment: [...] Location / / Volume Laterality Blood specimen 09/17/2013 9:35 AM 014 9:46 (specimen) EDT AM EDT Resulting Agency Comment Spec In Lab Tawanda Diego MD HEMATOLOGY ORDERABLES Performing Organization Address City/State/ZIP Code Phon e Number [place] [phone] CERNER MILLENNIUM (ABNORMAL) Hemogram (09/17/2013 9:35 AM EDT) P athologist Signature WBC 9.2 4.0 - 10.0 CERNER x10(3)/mcL MILLENNIUM RBC 3.23 (L) 3.93 - CERNER 5.22 MILLENNIUM x10(6)/mcL Hemoglobin 10.3 (L) 11.2 - CERNER 15.7 gm/dL MILLENNIUM Hematocrit 30.7 (L) 34.0 - CERNER 45.0 % MILLENNIUM MCV 95.0 (H) 79.0 - CERNER 94.0 fL MILLENNIUM MCH 31.9 26.6 - CERNER 32.2 pg MILLENNIUM MCHC 33.6 32.0 - CERNER 36.5 gm/dL MILLENNIUM Platelets 168 145 - 370 CERNER x10(3)/mcL MILLENNIUM RDWSD 43.3 35.0 - CERNER 46.0 fL MILLENNIUM RDWCV 12.6 10.9 - CERNER 14.4 % MILLENNIUM MPV 11.0 9.0 - 12.0 CERNER fL MILLENNIUM Specimen Anatomical Collection Method Collection Time Receive d Time (Source) Location / / Volume Laterality Blood specimen 09/17/2013 9:35 AM 014 9:46 (specimen) EDT AM EDT Resulting Agency Comment Spec In Lab Tawanda Diego MD HEMATOLOGY ORDERABLES Performing Organization Address City/State/[place] [address] CERNER MILLENNIUM Magnesium (09/17/2013 9:35 AM EDT) athologist Signature Magnesium 0.69 0.69 - 1.07 CERNER mmol/L MILLENNIUM Specimen Anatomical Collection Method Collection Time Receive d Time (Source) Location / / Volume Laterality Blood specimen 09/17/2013 9:35 AM 014 9:46 (specimen) EDT AM EDT Resulting Agency Comment Spec In Lab Tawanda Diego MD CHEMISTRY ORDERABLES Performing Organization Address City/[facility] Code Phon e Number [address] CERNER MILLENNIUM (ABNORMAL) Basic Metabolic Panel (non-fasting) (09/17/2013 9:35 AM EDT) athologist Signature Glucose Lvl 209 (H) 60 - 199 CERNER mg/dL MILLENNIUM Comment: Diabetes: >=200 mg/dL plus symp toms BUN 11 8 - 18 mg/dL CERNER MILLENNIUM Creatinine 0.79 0.70 - 1.20 mg/dL CERNER MILL ENNIUM Comment: Please note that the pediatric reference intervals supplied above were not validated at [facility]. Results from pediatri c patients should be interpreted in conjunction to the patient's age, height and muscle mass. Sodium 135 135 - 145 mmol/L CERNER LIZZETTE NIUM Potassium 3.9 3.5 - 5.0 mmol/L CERNER LIZZETTE NIUM Comment: Please note: ??Patients with WBC >100,00 0 may have falsely elevated Potassium levels. ??For accurate Potassium quantif ication in these patients send serum separator tube (gold top) for subsequent determinations. ??Contact the Clinical Chemistry Laboratory if there are any qu estions. Chloride 100 98 - 107 mmol/L CERNER MILLENN IUM CO2 27 22 - 31 mmol/L CERNER MILLENNI UM Anion Gap 8 5 - 15 mmol/L CERNER MILLENNIU M Calcium 8.5 8.5 - 10.5 mg/dL CERNER LIZZETTE NIUM Estimated GFR >60 >=60 CERNER MILLENNIU M Comment: This estimated [...] the following links into your internet browser. [email or web address] Specimen Anatomical Collection Method Collection Time Receive d Time (Source) Location / / Volume Laterality Blood specimen 09/17/2013 9:35 AM 014 9:46 (specimen) EDT AM EDT Resulting Agency Comment Spec In Lab Tawanda Diego MD CHEMISTRY ORDERABLES Performing Organization Address City/[facility]/ZIP [facility] Phon e Number [address] [place] POCT Glucose (09/17/2013 7:36 AM EDT) P athologist Signature POC Glucose 126 60 - 199 CERNER mg/dL [facility] Comment: Supplemental ranges: <110 mg/dL before meals <200 mg/dL all other times of the day Specimen Anatomical Collection Method Collection Time Receive d Time (Source) Location / / Volume Laterality Blood specimen 09/17/2013 7:36 AM 014 7:36 (specimen) EDT AM EDT Tawanda Diego MD POINT OF CARE TEST ORDERABLE S Performing Organization Address City/[facility] Phon e Number [address] [place] EKG 12 Lead (09/16/2013 11:51 PM EDT) Component Value Ref Range Test Analysis Performed Pathologis t Method Time At Signature Ventricular rate 160 BPM MUSE SYSTEM Atrial Rate 163 BPM MUSE SYSTEM QRS Duration 122 ms MUSE SYSTEM Q-T Interval 250 ms MUSE SYSTEM QTC Calculated 407 ms MUSE SYSTEM (Bezet) Calculated R [place] 55 degrees MUSE SYSTEM Calculated T [place] -41 degrees MUSE SYSTEM INTERPRETATION Atrial fibrillation with rapid ventricular response MUSE SYSTEM Right bundle branch block T wave abnormality, consider inferior ischemia or digitalis effect Abnormal ECG When compared with ECG of 11-AUG-2013 15:36, Atrial fibrillation has replaced Sinus rhythm Vent. rate has increased BY 108 BPM Nonspecific T wave abnormality now evident in Lateral leads Confirmed by MD MONTEIRO ARMIN ([id number]) on 09/17/2013 7:05:44 PM Specimen Anatomical Collection Method Collection Time Receive d Time (Source) Location / / Volume Laterality 09/16/2013 11:51 09/17/2013 7:05 PM EDT PM EDT Tawanda Diego MD ECG ORDERABLES Performing Organization Address City/State/ZIP Code Phon e Number MUSE SYSTEM (ABNORMAL) Differential, Automated (09/15/2013 6:01 AM EDT) [facility] gist Method Time Signature Neutrophils % 79.3 (H) 34.0 - CERNER 71.0 % MILLENNIUM Neutr Abs (ANC) 12.16 (H) 1.50 - CERNER 6.30 MILLENNIUM x10(3)/mc L Lymphocytes % 12.7 (L) 19.0 - CERNER 53.0 % MILLENNIUM Lymphocytes Abs 2.0 1.0 - 3.6 CERNER x10(3)/mc MILLENNIUM L Monocytes % 7.6 4.0 - CERNER 13.0 % MILLENNIUM Monocyte Abs 1.2 (H) 0.2 - 1.0 CERNER x10(3)/mc MILLENNIUM L Eosinophils % 0.0 0.0 - 7.0 CERNER % MILLENNIUM Eosinophils Abs 0.0 0.0 - 0.5 CERNER x10(3)/mc MILLENNIUM L Basophils % 0.1 0.0 - 2.0 CERNER % MILLENNIUM Basophils Abs 0.0 0.0 - 0.2 CERNER x10(3)/mc MILLENNIUM L Immature Gran % 0.30 0.00 - CERNER 0.66 % MILLENNIUM Comment: Immature granulocytes(IG's)percentage an d absolute count will include metamyelocytes, myelocytes, and promyelo cytes. Blood smears from CBCs yielding IG's will be scanned manually for concor dance. If this scan disagrees with the automated IG or if promyelocytes are not ed, a manual differential will be performed. Denise Gran Abs 0.04 0.00 - 0.05 x10(3)/mcL CER NER MILLENNIUM Specimen Anatomical Collection Method Collection Time Receive d Time (Source) Location / / Volume Laterality Blood specimen 09/15/2013 6:01 AM 014 6:14 (specimen) EDT AM EDT Resulting Agency Comment Spec In Lab Tawanda Diego MD HEMATOLOGY ORDERABLES Performing Organization Address City/[facility]/ZIP Code Phon e Number [address] CERNER MILLENNIUM (ABNORMAL) Hemogram (09/15/2013 6:01 AM EDT) P athologist Signature WBC 15.3 (H) 4.0 - 10.0 CERNER x10(3)/mcL MILLENNIUM RBC 3.77 (L) 3.93 - CERNER 5.22 MILLENNIUM x10(6)/mcL Hemoglobin 12.0 11.2 - CERNER 15.7 gm/dL MILLENNIUM Hematocrit 35.2 34.0 - CERNER 45.0 % MILLENNIUM MCV 93.4 79.0 - CERNER 94.0 fL MILLENNIUM MCH 31.8 26.6 - CERNER 32.2 pg MILLENNIUM MCHC 34.1 32.0 - CERNER 36.5 gm/dL MILLENNIUM Platelets 206 145 - 370 CERNER x10(3)/mcL MILLENNIUM RDWSD 40.8 35.0 - CERNER 46.0 fL MILLENNIUM RDWCV 12.0 10.9 - CERNER 14.4 % MILLENNIUM MPV 10.7 9.0 - 12.0 CERNER fL MILLENNIUM Specimen Anatomical Collection Method Collection Time Receive d Time (Source) Location / / Volume Laterality Blood specimen 09/15/2013 6:01 AM 014 6:14 (specimen) EDT AM EDT Resulting Agency Comment Spec In Lab Tawanda Diego MD HEMATOLOGY ORDERABLES Performing Organization Address City/[facility]/ZIP Code Phon e Number [address] CERNER MILLENNIUM (ABNORMAL) Basic Metabolic Panel (non-fasting) (09/15/2013 6:01 AM EDT) P athologist Signature Glucose Lvl 120 60 - 199 CERNER mg/dL MILLENNIUM Comment: Diabetes: >=200 mg/dL plus symp toms BUN 15 8 - 18 mg/dL CERNER MILLENNIUM Creatinine 0.77 0.70 - 1.20 mg/dL CERNER MILL ENNIUM Comment: Please note that the pediatric reference intervals supplied above were not validated at [facility]. Results from pediatri c patients should be interpreted in conjunction to the patient's age, height and muscle mass. Sodium 138 135 - 145 mmol/L CERNER LIZZETTE NIUM Potassium 4.1 3.5 - 5.0 mmol/L CERNER LIZZETTE NIUM Comment: Please note: ??Patients with WBC >100,00 0 may have falsely elevated Potassium levels. ??For accurate Potassium quantif ication in these patients send serum separator tube (gold top) for subsequent determinations. ??Contact the Clinical Chemistry Laboratory if there are any qu estions. Chloride 103 98 - 107 mmol/L CERNER MILLENN IUM CO2 28 22 - 31 mmol/L CERNER MILLENNI UM Anion Gap 7 5 - 15 mmol/L CERNER MILLENNIU M Calcium 8.3 (L) 8.5 - 10.5 mg/dL CERNER LIZZETTE NIUM Estimated GFR >60 >=60 CERNER MILLENNIU M Comment: This estimated [...] the following links into your internet browser. [email or web address]/DHnkdep http://ComputeNext/DHMCnkf Specimen Anatomical Collection Method Collection Time Receive d Time (Source) Location / / Volume Laterality Blood specimen 09/15/2013 6:01 AM 014 6:14 (specimen) EDT AM EDT Resulting Agency Comment Spec In Lab Tawanda Diego MD CHEMISTRY ORDERABLES Performing Organization Address City/State/[place] [address] CERNER MILLENNIUM POCT Glucose (09/14/2013 7:26 PM EDT) athologist Signature POC Glucose 142 60 - 199 CERNER mg/dL [facility] Comment: Supplemental ranges: <110 mg/dL before meals <200 mg/dL all other times of the day Specimen Anatomical Collection Method Collection Time Receive d Time (Source) Location / / Volume Laterality Blood specimen 09/14/2013 7:26 PM 014 7:26 (specimen) EDT PM EDT Tawanda Diego MD POINT OF CARE TEST ORDERABLE S Performing Organization Address [facility]/ZIP Code Phon e Number [address] [facility]vel[facility] XR lumbar spine 1 view (09/14/2013 2:47 PM EDT) Anatomical Region Laterality Modality L-spine N/A Radiographic Imaging Specimen (Source) Anatomical Collection Method Collection Time Re ceived Time Location / / Volume Laterality 09/14/2013 2:47 PM EDT Narrative 09/14/2013 4:19 PM EDT Examination LUMBAR SPINE 1 VIEW/XPORT Clinical History Intraoperative level confirmation Comparison None Technique Intraoperative lateral lumbar spine. Findings A metallic device projects posterior to the L5/S1 interspace. Procedure Note Hiro Reeves MD - 09/14/2013 Examination LUMBAR SPINE 1 VIEW/XPORT Clinical History Intraoperative level confirmation Comparison None Technique Intraoperative lateral lumbar spine. Findings A metallic device projects posterior to the L5/S1 interspace. Tawanda Diego MD IMG DX ORDERABLES POCT Glucose (09/14/2013 12:14 PM EDT) athologist Signature POC Glucose 91 60 - 199 CERNER mg/dL [facility] Comment: Supplemental ranges: <110 mg/dL before meals <200 mg/dL all other times of the day Specimen Anatomical Collection Method Collection Time Receive d Time (Source) Location / / Volume Laterality Blood specimen 09/14/2013 12:14 4 (specimen) PM EDT 12:14 PM EDT Tawanda Diego MD POINT OF CARE TEST ORDERABLE S Performing Organization Address City/[facility]/[place] [address] [facility] documented in this encounter Visit Diagnoses Diagnosis S/P Revision Right L4-S1 decompression, Right L4-5 diskectomy - 09/14/13 (Evonne) - Primary Personal history of surgery to other org ans Right lumbar radiculopathy Thoracic or lumbosacral neuritis or radi culitis, unspecified Chronic low back pain Lumbago Atrial fibrillation with RVR Atrial fibrillation documented in this encounter Administered Medications Inactive Administered Medications - up to 3 most recent administrations Medication Order MAR Action Action Date Dose Rate Site acetaminophen (TYLENOL) tablet Given 09/17/2013 10:19 AM EDT 1,0 00 mg 1,000 mg 1,000 mg, Oral, EVERY 8 HOURS SCHEDULED, First dose on Fri09/14/13 at 1745, Until Discontinued, Maximum dose of acetaminophen is 4000 mg from all sources in 24 hours., Recovery (Recovery-Hospital Unit), Routine Given 09/17/2013 2:00 AM EDT 1,000 mg Given 09/16/2013 5:25 PM EDT 1,000 mg amitriptyline (ELAVIL) tablet 25 mg Given 09/16/2013 8:54 PM EDT 25 mg 25 mg, Oral, NIGHTLY, First dose on Fri09/14/13 at 2315, Until Discontinued, Recovery (Recovery-Hospital Unit), Routine Given 09/15/2013 9:07 PM EDT 25 mg atenolol (TENORMIN) tablet 50 mg Given 09/16/2013 11:49 PM EDT 50 mg 50 mg, Oral, DAILY, First dose (after last modification) on Fri09/17/13 at 0000, Until Discontinued, Recovery (Recovery-Hospital Unit), STAT ceFAZolin (ANCEF) 1g in dextrose New Bag 09/15/2013 8:53 AM ED T 1,000 mg 100 mL/hr 5% 50mL 1,000 mg (1 g), Intravenous, EVERY 8 HOURS, 3 doses, First dose on Fri09/14/13 at 1745, Last dose on Fri09/15/13 at 0945, Administer over 30 Minutes, For 3 doses postoperatively. Adjust to 8 hours from intraoperative dose., Recovery (Recovery-Hospital Unit), Indication for (Active or Suspected): Prophylaxis New Bag 09/15/2013 1:18 AM EDT 1,000 mg 100 mL/hr New Bag 09/14/2013 10:24 PM EDT 1,000 mg 100 mL/hr esomeprazole (NEXIUM) capsule 40 mg Given 09/17/2013 8:50 AM EDT 40 mg 40 mg, Oral, DAILY, First dose on Fri09/15/13 at 0900, Until Discontinued, Recovery (Recovery-Hospital Unit), Routine Given 09/16/2013 8:32 AM EDT 40 mg Given 09/15/2013 8:12 AM EDT 40 mg HYDROmorphone (DILAUDID) 0.2 mg/mL 10mL Given 09/14/2013 5:59 PM EDT 0.4 mg Syringe 0.2-0.4 mg, Intravenous, EVERY 5 MIN PRN, Pain, Starting on Fri09/14/13 at 1647, Until Fri09/14/13 at 2031, For moderate pain give: 0.2 mg every 5 minute prn For severe pain give: 0.4 mg every 5 minutes prn Maximum dose: 4 mg per hour Hold for respiratory rate less than 10 per minute., PACU Recovery Given 09/14/2013 5:46 PM EDT 0.4 mg Given 09/14/2013 5:34 PM EDT 0.2 mg HYDROmorphone (DILAUDID) 1 mg/mL [employer]ENDING [employer]OUTE [employer]IVER 30 Rate/Dose Verify 014 7:15 PM EDT mL Intravenous, VENDING ROUTE DRIVER ONLY, Starting on Fri09/14/13 at 1745, Until Fri09/15/13 at 1425, Recovery (Recovery-Hospital Unit) New Syringe/Cartridge 09/14/2013 6:24 PM EDT 30 mg HYDROmorphone (DILAUDID) 30 mg/30 mL inf usion 1 dose, Starting on Fri09/14/13 at 1719, Until Fri09/14/13 at 1824, CARMEN FELIZ: cabinet override HYDROmorphone (DILAUDID) injection 0.4 m g Given 09/15/2013 7:39 PM EDT 0.4 mg 0.4 mg, Intravenous, ONCE, 1 dose, On Fri09/15/13 at 1915, Routine HYDROmorphone (DILAUDID) tablet 2-6 mg Given 09/15/2013 11:42 PM EDT 6 mg 2-6 mg, Oral, EVERY 4 HOURS PRN, Starting on Fri09/15/13 at 1426, Until Fri09/16/13 at 0333, Pain, Routine Given 09/15/2013 5:51 PM EDT 6 mg Given 09/15/2013 2:39 PM EDT 6 mg HYDROmorphone (DILAUDID) tablet 2-6 mg Given 09/17/2013 3:02 PM EDT 4 mg 2-6 mg, Oral, EVERY 3 HOURS PRN, Starting on Fri09/16/13 at 0345, Until Fri09/17/13 at 1708, Pain, Routine Given 09/17/2013 1:09 PM EDT 2 mg Given 09/17/2013 6:00 AM EDT 6 mg ketorolac (TORADOL) injection 15 mg Given 09/15/2013 1:18 AM EDT 15 mg 15 mg, Intravenous, EVERY 6 HOURS SCHEDULED, 2 doses, First dose on Fri09/14/13 at 1745, Last dose on Fri09/15/13 at 0000, Recovery (Recovery-Hospital Unit), Routine lactated ringers 500 mL IV bolus Given 09/17/2013 2:27 AM EDT Intravenous, ONCE, 1 dose, On Fri09/17/13 at 0245 lactated ringers infusion 1,000 mL New Bag 09/14/2013 2:50 PM EDT mL 1,000 mL, at 100 mL/hr, Intravenous, CONTINUOUS, Starting on Fri09/14/13 at 1245, Until Fri09/14/13 at 1720, Day of Surgery (Day of Procedure) New Bag 09/14/2013 12:28 PM EDT 1,000 mLs 100 mL/hr lactated ringers Rate/Dose Verify 09/14/2013 7:15 PM EDT 1,000 mLs 1 00 mL/hr infusion 1,000 mL 1,000 mL, at 100 mL/hr, Intravenous, CONTINUOUS, Starting on Fri09/14/13 at 1715, Until Fri09/14/13 at 2031, PACU Recovery New Bag 09/14/2013 7:00 PM EDT 1,000 mLs 100 mL/hr Restarted 09/14/2013 6:06 PM EDT 1,000 mLs 100 mL/hr lactated ringers infusion 1,000 New Bag 09/17/2013 6:02 AM EDT 1,000 mLs 100 mL/hr mL 1,000 mL, at 100 mL/hr, Intravenous, CONTINUOUS, Starting on Fri09/14/13 at 1745, Until Fri09/17/13 at 1708, Recovery (Recovery-Hospital Unit) New Bag 09/16/2013 6:57 AM EDT 1,000 mLs 100 mL/hr New Bag 09/15/2013 9:47 PM EDT 1,000 mLs 100 mL/hr metFORMIN (GLUCOPHAGE) tablet 500 mg Given 09/17/2013 8:49 AM EDT 500 mg 500 mg, Oral, DAILY, First dose on Fri09/15/13 at 0900, Until Discontinued, Recovery (Recovery-Hospital Unit), Routine Given 09/16/2013 8:32 AM EDT 500 mg Given 09/15/2013 8:12 AM EDT 500 mg multivitamin Ercg-Lp-LY-Min (THERAPEUTIC-M) Given 08/30 8:49 AM EDT 1 tablet 27-0.4 mg tablet 1 tablet 1 tablet, Oral, DAILY, First dose on Fri09/15/13 at 0900, Until Discontinued, Recovery (Recovery-Hospital Unit) Given 09/16/2013 8:33 AM EDT 1 tablet Given 09/15/2013 8:12 AM EDT 1 tablet ondansetron (ZOFRAN) injection 4 mg Given 09/15/2013 5:32 PM EDT 4 mg 4 mg, Intravenous, EVERY 8 HOURS PRN, Starting on Fri09/14/13 at 2255, Until Fri09/17/13 at 1708, Nausea, Recovery (Recovery-Hospital Unit) Given 09/15/2013 8:22 AM EDT 4 mg ondansetron (ZOFRAN) injection 4 mg Given 09/14/2013 11:44 PM EDT 4 mg 4 mg, Intravenous, EVERY 30 MIN PRN, 2 doses, Starting on Fri09/14/13 at 2255, Until Fri09/14/13 at 2344, Nausea, May repeat dose once in 30 minutes if no relief from previous dose., Recovery (Recovery-Hospital Unit) Given 09/14/2013 11:02 PM EDT 4 mg oxyCODONE (oxyCONTIN) CR tablet 10 mg Given 09/17/2013 8:55 AM EDT 10 mg 10 mg, Oral, EVERY 12 HOURS SCHEDULED (2 times per day), First dose on Ghislaine 09/16/13 at 1230, Until Discontinued Given 09/16/2013 8:53 PM EDT 10 mg Given 09/16/2013 11:59 AM EDT 10 mg oxyCODONE (ROXICODONE) immediate release Given 09/15/2013 11:58 AM EDT 10 mg tablet 10 mg 10 mg, Oral, EVERY 4 HOURS PRN, Starting on Fri09/14/13 at 1720, Until Fri09/15/13 at 1425, Pain, moderate pain, For Moderate pain. Do not exceed 15 mg in 4 hours. If pain not relieved, call provider., Recovery (Recovery-Hospital Unit), Routine Given 09/14/2013 6:02 PM EDT 10 mg polyethylene glycol (MIRALAX) packet 17 g Given 09/17/2013 8:49 AM EDT 17 g 17 g, Oral, 2 TIMES DAILY, First dose on Fri09/14/13 at 2315, Until Discontinued, Administer if needed per patient's routine or if no bowel movement within 48 hours, Recovery (Recovery-Hospital Unit), Routine Given 09/16/2013 8:53 PM EDT 17 g Given 09/16/2013 8:33 AM EDT 17 g senna-docusate (PERICOLACE) 8.6-50 mg per Given 2013 8:54 AM EDT 2 tablets tablet 1-4 tablet 1-4 tablet, Oral, 2 TIMES DAILY, First dose on Fri09/14/13 at 2315, Until Discontinued, Start with 1 tablet or liquid equivalent orally twice daily and titrate up to achieve: 1. One bowel movement at least every 48 hours, AND 2. Without straining, Recovery (Recovery-Hospital Unit), Routine Given 09/16/2013 8:53 PM EDT 2 tablets Given 09/16/2013 8:33 AM EDT 2 tablets sodium chloride 0.9 % flush 5 mL Given 09/17/2013 8:50 AM EDT 5 mLs 5 mL, Intravenous, 2 TIMES DAILY, First dose on Fri09/14/13 at 2315, Until Discontinued, Recovery (Recovery-Hospital Unit), Routine Given 09/16/2013 9:05 PM EDT 5 mLs Given 09/15/2013 9:46 PM EDT 5 mLs documented in this encounter Active and Recently Administered Medications Times are shown in EDT. Scheduled Medication Order 09/15/2013 09/16/2013 09/17/2013 acetaminophen (TYLENOL) tablet 1,000 mg 0200 (Not Give n - Provider: Pito Lui RN - Reason: Patient/family refused)0937 (Given - Provider: Charo Mallory, RN)1707 (Given - Provider: Charo Mallory, RN) 0305 (Given - Provider: Xochitl Cuevas RN)1028 (Given - Provider: Charo Mallory, RN)1725 (Given - Provider: Charo Mallory, RN) 0200 (Given - Provider: Pito Liu RN)1019 (Given - Provider: Chantell Hollins RN) 1,000 mg, Oral, EVERY 8 HOURS SCHEDULED, First dose on Fri09/14/13 at 1745, Until Discontinued, Maximum dose of acetaminophen is 4000 mg from all sources in 24 hours., Recovery (Recovery-Hospital Unit), Routine amitriptyline (ELAVIL) tablet 25 mg (CANCELED) 2106 (G iven - Provider: Pito Liu RN) 205 (Given - Provider: Pito Liu RN) 25 mg, Oral, NIGHTLY, First dose on Fri09/14/13 at 2315, Until Discontinued, Recovery (Recovery-Hospital Unit), Routine atenolol (TENORMIN) tablet 50 mg (CANCELED) 2349 (Given - Provider: Pito Liu RN) 50 mg, Oral, DAILY, First dose on Fri at 0000, Until Discontinued, Recovery (Recovery-Hospital Unit), STAT ceFAZolin (ANCEF) 1g in dextrose 5% 50mL (COMPLETED) 0 118 (New Bag - Provider: Pito Liu RN)0853 (New Bag - Provider: Charo Mallory, RAFA) 1 g = 1,000 mg, Intravenous, EVERY 8 ENMA RS, 3 doses, First dose on Fri09/14/13 at 1745, Last dose on Fri09/15/13 at 0945, for 30 Minutes, For 3 doses postoperatively. Adjust to 8 hours from intraoperati ve dose., Recovery (Recovery-Hospital Un it), Indication for (Active or Suspected): Prophylaxis esomeprazole (NEXIUM) capsule 40 mg (CANCELED) 0812 (G iven - Provider: Charo Mallory RN) 0832 (Given - Provider: Charo Mallory, RAFA) 0850 (Given - Provider: Chantell Hollins, RAFA) 40 mg, Oral, DAILY, First dose on Fri at 0900, Until Discontinued, Recovery (Recovery-Hospital Unit), Routine HYDROmorphone (DILAUDID) injection 0.4 mg (COMPLETED) 193 (Given - Provider: Pito Liu, RAFA) 0.4 mg, Intravenous, ONCE, 1 dose, Fri09/15/13 at 1915, Routine ketorolac (TORADOL) injection 15 mg () 0118 (Gi lilia - Provider: Pito Liu, RAFA) 15 mg, Intravenous, EVERY 6 HOURS SCHEDU LED, 2 doses, First dose on Fri09/14/13 at 1745, Last dose on Fri09/15/13 at 0000, Recovery (Recovery-Hospital Unit), Routine lactated ringers 500 mL IV bolus (COMPLETED) 0227 (Given - Provider: Pito Liu, RAFA) Intravenous, ONCE, 1 dose, Fri09/17/13 at 0245 metFORMIN (GLUCOPHAGE) tablet 500 mg (CANCELED) 0812 ( Given - Provider: Charo Mallory, RAFA) 0832 (Given - Provider: Charo Mallory, RAFA) 0849 (Given - Provider: Chantell Hollins, RAFA) 500 mg, Oral, DAILY, First dose on Fri at 0900, Until Discontinued, Recovery (Recovery-Hospital Unit), Routine multivitamin Zsty-Be-IH-Min (THERAPEUTIC -M) 27-0.4 mg tablet 1 tablet (CANCELED) 0812 (Given - Provider: Charo Mallory RN) 0833 (Given - Provider: Charo Mallory, RAFA) 0849 (Given - Provider: Chantell Hollins, RAFA) 1 tablet, Oral, DAILY, First dose on Fri09/15/13 at 0900, Until Discontinued, Recovery (Recovery-Hospital Unit), Routine oxyCODONE (oxyCONTIN) CR tablet 10 mg 11 59 (Given - Provider: Charo Mallory, RAFA)2052 (Given - Provider: Pito Liu, RN) 0855 (Given - Provider: Chantell Hollins, RAFA) 10 mg, Oral, EVERY 12 HOURS SCHEDULED (2 times per day), First dose on Ghislaine 09/16/13 at 1230, Until Discontinued, Routine polyethylene glycol (MIRALAX) packet 17 g 0811 (Given - Provider: Charo Mallory, RAFA)2106 (Given - Provider: Pito Liu RN) 832 (Given - Provider: Charo Mallory, RAFA)2052 (Given - Provider: Pito Liu, RAFA) 0849 (Given - Provider: Chantell Hollins, RAFA) 17 g, Oral, 2 TIMES DAILY, First dose on Fri09/14/13 at 2315, Until Discontinued, Administer if needed per patient's routine or if no bowel movement within 48 hours, Recovery (Recovery-Hospital Unit), Routine senna-docusate (PERICOLACE) 8.6-50 mg per tablet 1-4 t ablet 0811 (Given - Provider: Charo Mallory, RAFA)2106 (Given - Provider: Pito Liu RN) 832 (Given - Provider: Charo Mallory, RAFA)2052 (Given - Provider: Pito Liu RN) 0854 (Given - Provider: Chantell Hollins, RAFA) 1-4 tablet, Oral, 2 TIMES DAILY, First d ose on Fri09/14/13 at 2315, Until Discontinued, Start with 1 tablet or liquid equivalent orally twice daily and titrate up to achieve: 1. One bowel movement at le ast every 48 hours, AND 2. Without strai chiquis, Recovery (Recovery-Hospital Unit), Routine sodium chloride 0.9 % flush 5 mL (CANCELED) 0118 (Give n - Provider: Pito Liu RN)0816 (Given - Provider: Charo Mallory, RAFA)214 (Given - Provider: Pito Liu RN) 0900 (Not Given - Provider: Charo zazueta RN - Reason: See comment - Comment: iv infusing)2104 (Given - Provider: Pito Liu RN) 0850 (Given - Provider: Chantell Hollins, RAFA) 5 mL, Intravenous, 2 TIMES DAILY, First dose on Fri09/14/13 at 2315, Until Discontinued, Recovery (Recovery-Hospital Unit), Routine Continuous Medication Order 09/15/2013 09/16/2013 09/17/2013 lactated ringers infusion 1,000 mL (CANCELED) 0400 (Ne w Bag - Provider: Pito Liu RN)1000 (Paused - Provider: Charo Mallory RN)2147 (New Bag - Provider: Pito Liu RN) 0657 (New Bag - Provider: Charo Mallory, RN) 0602 (New Bag - Provider: Pito Liu RN) 1,000 mL, at 100 mL/hr, Intravenous, CON TINUOUS, Starting Fri09/14/13 at 1745, Until Fri09/17/13 at 1708, Recovery (Recovery-Hospital Unit) PRN Medication Order 09/15/2013 09/16/2013 09/17/2013 HYDROmorphone (DILAUDID) tablet 2-6 mg (CANCELED) 1439 (Given - Provider: Charo Mallory RN)1751 (Given - Provider: Charo Mallory, RAFA)2342 (Given - Provider: Pito Liu RN) 2-6 mg, Oral, EVERY 4 HOURS PRN, Startin g 09/15/13 at 1426, Until Ghislaine 09/16/13 at 0333, Pain, Routine HYDROmorphone (DILAUDID) tablet 2-6 mg 0 350 (Given - Provider: Pito Liu RN)0640 (Given - Provider: Pito Liu RN)1028 (Given - Provider: Charo Mallory, RAFA)1044 (MAY Hold - Provider: Admin Adt - Reason: Transfer to a Procedural area)1047 (MAY Unhold - Provider: Admin Adt) 0305 (Given - Provider: Pito Liu RN)0600 (Given - Provider: Pito Liu RN)1309 (Given - Provider: Chantell Hollins, RAFA)1502 (Given - Provider: Chantell Hollins, RAFA - Comment: pt request before discharge) 2-6 mg, Oral, EVERY 3 HOURS PRN, Startin g Ghislaine 09/16/13 at 0345, Until Fri09/17/13 at 1708, Pain, Routine 1602 (Given - Provider: Simba Mallory RN)2349 (Given - Provider: Pito Liu RN) ondansetron (ZOFRAN) injection 4 mg (CANCELED) 0822 (G iven - Provider: Charo Mallory RN)1732 (Given - Provider: Charo Mallory RN) 4 mg, Intravenous, EVERY 8 HOURS PRN, St arting 09/14/13 at 2255, Until Fri09/17/13 at 1708, Nausea, Recovery (Recovery-Hospital Unit), Routine oxyCODONE (ROXICODONE) immediate release tablet 10 mg (CANCELED) 1158 (Given - Provider: Charo Mallory RN) 10 mg, Oral, EVERY 4 HOURS PRN, Starting 09/14/13 at 1720, Until Fri09/15/13 at 1425, Pain, moderate pain, For Moderate pain. Do not exceed 15 mg in 4 hours. If pain not relieved, call provider., Recovery (Recovery-Hospital Unit), Routine documented in this encounter Care Teams Pie Baker Relationship Specialty Start Date End Date Malinda Mcmillan MD PCP - General 02/20/[address] [place] [id number] documented as of this encounter
--- OUTSIDE RECORDS SUMMARY | 2021-10-15 18:58 | XMS_ITS | Encounter Summary ---
:1950 [place] [address] Care Team Providers Name Role Phone Malinda Mcmillan MD Primary Care Provider Encounter Details Date Type Department Care Team Description 09/14/2013 Surgery Main Operating Room Maria Elena Diego MD EA ADD'L VERTEBRAL [facility] CERVICAL, Hospital THORACIC, LUMBAR ([facility] 3[facility]) [place] [id number] [phone] Social History Tobacco Use Types Packs/Day Years Used Date Former Smoker 0.25 Quit: 07/30/19 14 Smokeless Tobacco: Never Used Sex Assigned at Date Recorded Not on file documented as of this encounter Last Filed Vital Signs Vital Sign Reading Time Taken Comments Blood Pressure 145/109 09/14/2013 12:06 PM EDT Pulse 63 09/14/2013 12:06 PM EDT Temperature 36.6 ??C (97.9 ??F) 09/14/2013 12:06 PM EDT Respiratory Rate 16 09/14/2013 12:06 PM EDT Oxygen Saturation 99% 09/14/2013 12:06 PM EDT Inhaled Oxygen Concentration - - Weight 68 kg (150 lb) 09/14/2013 12:06 PM EDT Height 165.1 cm (5' 5) 09/14/2013 12:06 PM EDT Body Mass Index 24.95 09/15/2013 [...] them. 3. You should also take an uejl-nkq-civelwk stool softener, such as Colace or Senna, [...] contact the Spine Center Prescription Line at [phone]. PRESCRIPTION RENEWAL REQUESTS CAN TAKE UP TO 3 DAYS TO FILL. YOU WILL BE REQUIRED TOPICK UP YOUR NARCOTIC REFILL PRESCRIPTION IN PERSON AT [facility] OR IT CAN BE MAILED TO YOUR [...] fallen off already. PLEASE CALL US AT [phone] TO SPEAK WITH A SPINE CENTER NURSE [...] Important Phone Numbers: Clinical issues, nurse questions: [phone] Medication renewals: [phone] Appointments for Rebecca Diego : [phone] Follow Up Appointments: 1. You will have follow-up appointments at [facility] as indicated in the ???Future Appointments and [...] Center 10/13/2013 1:00 PM Tawanda Diego MD [facility] documented in this encounter Medications at [...] at home and referrals for [facility]NA [facility]. Will ask RS to update VNA potential d/c this wknd. Lolly Lainez PT - 09/17/2013 11:35 AM EDT Physical Therapy Visit 2-3 Patient Profile: Yesi Estrella is a 63 y.o femasle admitted on 09/14/2013 by Tawanda Anthony MD for scheduled Revision Right L4-S1 decompression; Right L4-5 diskectomy Staff Communication/Mobility Recommendations: Pt. to utilize FWW and S to ambulate with nursing staff 3x/day ~ 150 ft Social History: Patient lives with her in [place] w/ her who is retired Stairs: [...] form home managment LOLLY LAINEZ PT Pager: [phone] Tawanda Diego MD - 09/17/2013 7:42 AM [...] she is ready for d/c. Daniel Castro 09/17/2013 1:39 AM EDT S: At 2200, [...] diltiazem; did bolus LR 500cc x 1 IELAT Padmini Lam RN - 09/16/2013 1:32 PM EDT Met with pt his afternoon and she is currently reclined in bed receiving IVF. Pt explains she had a difficult night with pibob last night. RN reports adjustments made to pain medications. Pt has received her FWW from [facility] and has decided to get an over the [facility] commode thru [facility] in her home town. He will secure. Pt feels she has improved pain management for now and is anticipating d/c tomorrow, home with VNA servuces. eTa Mittal - 09/16/2013 11:54 AM EDT chChaplaincy Encounter Note Patient Name: Yesi Estrella : [id number] MR#: [id number] Admit Date: 09/14/2013 9:06 PM Hospital Day 2 days Narrative: Visited to introduce and assess acceptance of [employer]. Assessment: [employer] services accepted. Intervention and Outcome: Follow-up: Will coordinate follow-up services with [employer] staff. Time in Direct Care: 5 minutes. [...] Per nursing, pt has been replaced in bonbon cream warmer until pain management improved. Pt is available to assist with needs at discharge and she an aunt who will also come and stay and assist as needed. We discussed additional assist oif VNA and pt and are agreeable. Pt and request FWW and also over toilet extension seat. They request securing from [facility] and would like delivered to inpt room. Pt aware she may not have coverage for DME. Will secure DME and notify VNA. A list of DOUBLE NEEDLE OPERATOR???s which serve the geographic area which the patient resides. Patient requests referral to [facility] V[facility] Referrals sent via [employer] by Chief Order Dispatcher. Anticipate pt will d/c once pain controlled adequately. Tel call to [facility] in [place] per pt request. Provided script and demos [...] I/O last 3 completed shifts: In: 2000 [I.V.:2000] Out: 195 [Urine:145; Blood:50] I/O this shift: [...] Chong RN - 09/14/2013 7:27 PM EDT 1914 - report from RAFA Riley and care resumed. Monitor alarms set per pacu protocols. at bedside to visit and updated - supported. Has all pt's belongings with him. Pt alert and oriented. Perrl, snell. Pt does state that right leg is slight numb and tingling - slight more than her normal. Painmostly in lower back 5/10. Pt using bonbon cream warmer dilaudid as ordered and lissa well. Pt states pain level much better than her normal pain level. Also states sore around breast area and along right hip - no redness noted, no breakdown noted. Pt was prone for procedure - insructed pt maybe due to positioning for surgery. gd sats on 3L director regulatory affairs - lungs clear. Vss. IVF infusing via [...] pain level improved with better use of bonbon cream warmer button. Vss. uop improved after ivf given by previous RN. Dressing remains cdi. 2019 - turned pt back to flat - pt did well repositioning herself. gd uop. Vss. Pain controlled. Report called to RAFA salomon and pt readied for transfer to [facility] via bed. Ketty Braxton - 09/14/2013 6:37 PM EDT Pt arrived from OR to PACU @ 1713. Alarms active and audible per PACU protocol. A/Ox4, VSS. C/o 10/10 pain in her back and R leg. IV dilaudid given, PO oxycodone and tylenol given, FLOW MATCH SOFA CUTTER teaching with return demonstration showing understanding. Dressing [...] 09/18/2013 9:19 AM EDTAssociated Order(s): SCAN DOC: WINDOW DRESSER documented in this encounter Miscellaneous Notes Miscellaneous - Provider, Scanning - 09/18/2013 9:19 AM EDT Miscellaneous - Provider, Scanning - 09/18/2013 9:19 AM EDT Discharge Summary - Onel Rutherford MD - 09/17/2013 1:22 PM EDT Discharge Summary Patient Name: Yesi Estrella Patient Age: 63 y.o. Language: [place] Race: White Ethnicity: Not nor Admit date: [...] Inpatient Provider Contact Information: Dr. Diego Spine: [phone] After hours and weekends, call [facility] Wig Comber, , and have Orthopedic resident paged. Discharge [...] no bending or twisting, no lifting more [id number], and no pushing or pulling. These parameters were reinforced by physical therapy. Yesi Estrella was changed to oral pain medications and FLOW MATCH SOFA CUTTER was discontinued on POD#1. The miller catheter [...] Weight: Wt Readings from Last 1 Encounters: 09/15/13 68 kg (149 lb 14.6 oz) Height: Ht Readings from Last 1 Encounters: 09/15/13 165.1 cm (5' 5) HC: HC Readings from Last 1 Encounters: No data found for HC BMI: Body mass index is 24.95 kg/(m^2). Last value Range last 24 hrs Temperature Temp: 36.8 ??C (98.2 ??F) Temp: [36.4 ??C (97.5 ??F)-37.4 ??C (99.3 ??F)] Heart Rate Heart Rate: 72 Heart Rate: [70-137] Blood Pressure BP: 80/52 mmHg @@ Respiratory Rate Resp: 18 Resp: [18] SpO2 SpO2: 94 % @[id number]@ Art BP BP (Arterial Line): -- Functional [...] Administered Date(s) Administered ??? Influenza Vaccine (Novel) [id number], Injectable 01/29/2009 ??? Influenza Vaccine, Whole 01/29/2009 [...] them. 3. You should also take an mmpy-zpa-fsddfjv stool softener, such as Colace or Senna, [...] your pain medication, please contact the [facility] [place] Prescription Line at [phone]. PRESCRIPTION RENEWAL REQUESTS CAN TAKE UP TO 3 DAYS TO FILL. YOU WILL BE REQUIRED TOPICK UP YOUR NARCOTIC REFILL PRESCRIPTION IN PERSON AT [facility] OR IT CAN BE MAILED TO YOUR [...] fallen off already. PLEASE CALL US AT [phone] TO SPEAK WITH A SPINE CENTER NURSE [...] Important Phone Numbers: Clinical issues, nurse questions: [phone] Medication renewals: [phone] Appointments for Rebecca Digeo : [phone] Follow Up Appointments: 1. You will have follow-up appointments at [facility] as indicated in the ???Future Appointments and [...] Center 10/13/2013 1:00 PM Tawanda Diego MD [facility] Future Appointments and Orders Future Appointments: Provider: Department: Dept Phone: Center: 10/13/2013 1:00 PM Tawanda Diego MD [facility] [phone] [facility] Future Orders Please Complete By Expires Referral to Home Health [NAL3334 CPT(R)] Process Instructions: Scheduling Instructions: Comments: DOCUMENTATION FOR VNA SERVICES (INCLUDING THOSE PATIENTS WITH MEDICARE COVERAGE REQUIRING HOME VNA SERVICES AND/OR HOSPICE SERVICES) PATIENT'S LOCATION: Yesi Estrella [address] [place] [address] [phone] (home) Shaper Operator's Name: self and In discussion with the attending physician, it is certified that this patient is under their care and that they, or a Nurse Practitioner,Clinical Nurse specialist or Physician Form Tamping Machine Operator who is working directly with them, [...] rehab for managing ADL's.- evaluate need for DOUBLE NEEDLE OPERATOR [facility] PHONE: [phone] FAX: [phone] Start of care: Day after discharge FOR [...] MALINDA MCMILLAN MD [address] / [facility] [address] All A agencies which cover the area of patient's residence have been reviewed, either verbally or in writing, and patient/family have chosen the home health care agency noted Questions: Responses: [facility] Home What services are requested Registered Nurse Physical Therapy Start date Responsible MD post discharge contact info PCP Echocardiogram South/External [[id number] Custom] 09/17/13 09/16/14 Process Instructions: Scheduling Instructions: [...] arms. Questions: Responses: Vendor Name/Contact information: [employer] Walker rolling [[id number] Custom] Process Instructions: Scheduling Instructions: Comments: Front wheel walker. 68 kg, 165 cm. Questions: Responses: Vendor Name/Contact information: [employer] Primary Care Provider: MALINDA MCMILLAN MD [phone] Consult Note - Bhavna Harris MD - 09/17/2013 10:08 AM EDT Inpatient Hospital Medicine - Initial Consultation Date of Consultation: 09/17/2013 Consult Service: Medicine Consult Service Responsible Attending: Bhavna Harris MD Place of Service: Inpatient Unit [...] Illicits: Denies Living Situation: [place] Vitals: Last value Range last 24 [...] her CHADS2 score is 2 and her AQNNE4HXRM score is 3, this was a transient [...] required. OZZY ADKINS MD 09/17/2013 Consult pager #[phone] Personal pager [phone] Attending Staff Documentation I have examined the [...] Care Review Suffering of R leg pain 10/10, ambulated slowly with walker, unwilling to OOB [...] RN: Charo Mallory Initial Assessments - Lolly Lainez PT - 09/15/2013 9:24 AM EDT Physical [...] LUMBAR performed by Tawanda Diego MD at [facility] ??? Redo excis lumbar disc 09/14/2013 LAMINOTOMY W\DECOMPRESSION, ONE LVL, LUMBAR ,RE-EXPL (INCLDNG PART. FACETECTOMY, FORAMINOTOMY &\OR DISCECTOMY) performed by Tawanda Diego MD at [facility] Social History: Patient lives with her in [place], [place] w/ her who is retired Stairs: [...] treatment: 0 minutes LOLLY LAINEZ PT Pager: [phone] Plan of Care - Pito Liu RN - 09/15/2013 4:26 AM EDT Problem: General Plan of Care Goal: Plan of Care Review Pain controlled with FLOW MATCH SOFA CUTTER dilaudid, refused PO medications due to nausea, Given zofran x 2 with good relief. Op Note - Tawanda Diego MD - 09/14/2013 4:59 PM EDT [facility] Operative Note Patient Name: Yesi Estrella : [id number] MR#: [id number] Case Date: 09/14/2013 Surgeon: Surgeon(s) and Role: [...] were fully decompressed. INDICATION FOR PROCEDURE: Ms. Estrella is a 63-year-old female who [...] and S1 on the right side. A Collingsworth was placed caudal to the right L5 [...] Operative Note Patient Name: Yesi Estrella : [id number] MR#: [id number] Case Date: 09/14/2013 Surgeon: Surgeon(s) and Role: [...] details pertinent to this patient.) Miscellaneous - Provider, Gilberto - 09/14/2013 2:31 PM EDT documented in this encounter Plan of Treatment Upcoming Encounters Date Type Specialty Care Team Description 12/28/2021 Office Visit Neurosurgery Nancy Fountain MD [facility] NEUROSURGERY [place], [place] [address] (Wo rk) documented as of this encounter Procedures Procedure Name Priority Date/Time Associated Diagnosis Comme nts IMPLANTABLE DEVICES 09/18/2013 9:19 Resul ts for this SCAN AM EDT procedure are i n the results section. WINDOW DRESSER SCAN 09/18/2013 9:19 Resu lts for this [...] documented in this encounter Results SCAN DOC: WINDOW DRESSER (09/18/2013 9:19 AM EDT) Narrative 09/18/2013 9:35 [...] IG's will be scanned manually for concor danreina. If this scan disagrees with the [...] Diego MD HEMATOLOGY ORDERABLES Performing Organization Address City/[facility] [place] [address] CERNER MILLENNIUM (ABNORMAL) Hemogram [...] Diego MD HEMATOLOGY ORDERABLES Performing Organization Address City/[facility] [place] [address] CERNER MILLENNIUM Magnesium (09/17/2013 [...] Organization Address City/State/[place] [address] CERNER MILLENNIUM (ABNORMAL) Basic [...] intervals supplied above were not validated at [facility]. Results from pediatri c patients should be [...] the following links into your internet browser. [email or web address] [email or web address] Specimen Anatomical Collection Method Collection Time Receive d Time (Source) Location / / Volume Laterality Blood specimen 09/17/2013 9:35 AM 014 9:46 (specimen) EDT AM EDT Resulting Agency Comment Spec In Lab Tawanda Diego MD CHEMISTRY ORDERABLES Performing Organization Address City/[facility]/ZIP Code Phon e Number [address] CERNER RingRangIUM POCT Glucose (09/17/2013 7:36 AM EDT) athologist Signature POC Glucose 126 60 - 199 CERNER mg/dL [facility] Comment: Supplemental ranges: <110 mg/dL before meals <200 mg/dL all other times of the day Specimen Anatomical Collection Method Collection Time Receive d Time (Source) Location / / Volume Laterality Blood specimen 09/17/2013 7:36 AM 014 7:36 (specimen) EDT AM EDT Tawanda Diego MD POINT OF CARE TEST ORDERABLE S Performing Organization Address City/[facility]/ZIP [facility] Phon e Number [address] CERCnektIUM EKG 12 Lead (09/16/2013 11:51 PM EDT) Component Value Ref Range Test Analysis Performed Pathologis t Method Time At Signature Ventricular rate 160 BPM MUSE SYSTEM Atrial Rate 163 BPM MUSE SYSTEM QRS Duration 122 ms MUSE SYSTEM Q-T Interval 250 ms MUSE SYSTEM QTC Calculated 407 ms MUSE SYSTEM (Bezet) Calculated R [place] 55 degrees MUSE SYSTEM Calculated T [place] -41 degrees MUSE SYSTEM INTERPRETATION Atrial fibrillation with rapid ventricular response MUSE SYSTEM Right bundle branch block T wave abnormality, consider inferior ischemia or digitalis effect Abnormal ECG When compared with ECG of 11-AUG-2013 15:36, Atrial fibrillation has replaced Sinus rhythm Vent. rate has increased BY 108 BPM Nonspecific T wave abnormality now evident in Lateral leads Confirmed by HELISCH,MD, DESTIN ([id number]) on 09/17/2013 7:05:44 PM Specimen Anatomical Collection Method Collection Time Receive d Time (Source) Location / / Volume Laterality 09/16/2013 11:51 09/17/2013 7:05 PM EDT PM EDT Tawanda Diego MD ECG ORDERABLES Performing Organization Address City/State/ZIP Code Phon e Number MUSE SYSTEM (ABNORMAL) Differential, Automated (09/15/2013 6:01 AM EDT) [facility] Method Time Signature Neutrophils % 79.3 (H) [...] Diego MD HEMATOLOGY ORDERABLES Performing Organization Address City/[facility]/[place] [address] CERNER MILLENNIUM (ABNORMAL) Hemogram (09/15/2013 [...] Diego MD HEMATOLOGY ORDERABLES Performing Organization Address City/[facility]/ZIP Code Phon e Number [address] CERNER MILLENNIUM (ABNORMAL) Basic [...] intervals supplied above were not validated at [facility]. Results from pediatri c patients should be [...] the following links into your internet browser. [email or web address] [email or web address] Specimen Anatomical Collection Method Collection Time Receive d Time (Source) Location / / Volume Laterality Blood specimen 09/15/2013 6:01 AM 014 6:14 (specimen) EDT AM EDT Resulting Agency Comment Spec In Lab Tawanda Diego MD CHEMISTRY ORDERABLES Performing Organization Address City/State/[place] [address] CERNER MILLENNIUM POCT Glucose (09/14/2013 7:26 PM EDT) athologist Signature POC Glucose 142 60 - 199 CERNER mg/dL [facility] Comment: Supplemental ranges: <110 mg/dL before meals <200 mg/dL all other times of the day Specimen Anatomical Collection Method Collection Time Receive d Time (Source) Location / / Volume Laterality Blood specimen 09/14/2013 7:26 PM 014 7:26 (specimen) EDT PM EDT Tawanda Diego MD POINT OF CARE TEST ORDERABLE S Performing Organization Address City/[facility]/ZIP Code Phon e Number [address] CERNER MILLENNIUM XR lumbar spine 1 view (09/14/2013 2:47 [...] posterior to the L5/S1 interspace. Procedure Note Hrio Reeves MD - 09/14/2013 Examination LUMBAR SPINE 1 VIEW/XPORT Clinical History Intraoperative level confirmation Comparison None Technique Intraoperative lateral lumbar spine. Findings A metallic device projects posterior to the L5/S1 interspace. Tawanda Diego MD IMG DX ORDERABLES POCT Glucose (09/14/2013 12:14 PM EDT) P athologist Signature POC Glucose 91 60 - 199 CERNER mg/dL [facility] Comment: Supplemental ranges: <110 mg/dL before meals <200 mg/dL all other times of the day Specimen Anatomical Collection Method Collection Time Receive d Time (Source) Location / / Volume Laterality Blood specimen 09/14/2013 12:14 4 (specimen) PM EDT 12:14 PM EDT Tawanda Diego MD POINT OF CARE TEST ORDERABLE S Performing Organization Address City/[facility]/ZIP Code Phon e Number [address] CERNER MILLENNIUM documented in this encounter Visit Diagnoses Diagnosis S/P Revision Right L4-S1 decompression, Right L4-5 diskectomy - 09/14/13 (Evonne) - Primary Personal history of surgery to other org ans Right lumbar radiculopathy Thoracic or lumbosacral neuritis or radi culitis, unspecified Chronic low back pain Lumbago Atrial fibrillation with RVR Atrial fibrillation Right lumbar radiculopathy Thoracic or lumbosacral neuritis or radi culitis, unspecified documented in this encounter Administered Medications Inactive Administered Medications - up to 3 most recent administrations Medication Order MAR Action Action Date Dose Rate Site BUpivacaine (PF) Given 09/14/2013 5:02 PM 50 mg 19- Surgical Site (MARCAINE) 0.25 % (2.5 EDT mg/mL) injection ONCE PRN, Starting on Fri09/14/13 at 1702, Until Fri09/14/13 at 1721, Intra-Operative (Intra-Procedure), Routine BUpivacaine-EPINEPHrine 0.25 Given 09/14/2013 2:55 PM 20 mLs 19- Surgical Site %-1:200,000 injection EDT ONCE PRN, Starting on Fri09/14/13 at 1455, Until Fri09/14/13 at 1919, Intra-Operative (Intra-Procedure), Routine gelatin adsorbable 100 Given 09/14/2013 2:56 PM EDT 1 each 19- Surgical Site (GELFOAM) sponge ONCE PRN, Starting on Fri09/14/13 at 1456, Until Fri09/14/13 at 1721, Intra-Operative (Intra-Procedure), Routine thrombin (Bovine) Given 09/14/2013 2:56 PM 20,000 Units 19- Surgical Site (THROMBINAR) kit EDT ONCE PRN, Starting on Fri09/14/13 at 1456, Until Fri09/14/13 at 1721, Intra-Operative (Intra-Procedure) documented in this encounter Active and Recently Administered Medications Times are shown in EDT. Scheduled Medication Order 09/15/2013 09/16/2013 09/17/2013 acetaminophen (TYLENOL) tablet 1,000 mg 0200 (Not Give n - Provider: Pito Liu RN - Reason: Patient/family refused)0970 (Given - Provider: Charo Mallory RN)1707 (Given - Provider: Charo Mallory RN) 0305 (Given - Provider: Xochitl Cuevas RN)1028 (Given - Provider: Charo Mallory RN)1725 (Given - Provider: Charo Mallory RN) 0200 (Given - Provider: Pito Liu RN)1019 (Given - Provider: Chantell Hollins RN) 1,000 mg, Oral, EVERY 8 HOURS SCHEDULED, First dose on Fri09/14/13 at 1745, Until Discontinued, Maximum dose of acetaminophen is 4000 mg from all sources in 24 hours., Recovery (Recovery-Hospital Unit), Routine amitriptyline (ELAVIL) tablet 25 mg (CANCELED) 2106 (Lorri fletcheren - Provider: Pito Liu RN) 2053 (Given - Provider: Pito Liu RN) 25 mg, Oral, NIGHTLY, First dose on Fri09/14/13 at 2315, Until Discontinued, Recovery (Recovery-Hospital Unit), Routine atenolol (TENORMIN) tablet 50 mg (CANCELED) 2348 (Given - Provider: Pito Liu RN) 50 mg, Oral, DAILY, First dose on Fri at 0000, Until Discontinued, Recovery (Recovery-Hospital Unit), STAT ceFAZolin (ANCEF) 1g in dextrose 5% 50mL (COMPLETED) 0 118 (New Bag - Provider: Pito Liu RN)0853 (New Bag - Provider: Charo Mallory RN) 1 g = 1,000 mg, Intravenous, EVERY 8 ENMA RS, 3 doses, First dose on Fri09/14/13 at 1745, Last dose on Fri09/15/13 at 0945, for 30 Minutes, For 3 doses postoperatively. Adjust to 8 hours from intraoperati ve dose., Recovery (Recovery-Hospital Un it), Indication for (Active or Suspected): Prophylaxis esomeprazole (NEXIUM) capsule 40 mg (CANCELED) 0812 (Lorri coley - Provider: Charo Malolry RN) 0832 (Given - Provider: Charo Mallory RN) 0850 (Given - Provider: Chantell Hollins RN) 40 mg, Oral, DAILY, First dose on Fri at 0900, Until Discontinued, Recovery (Recovery-Hospital Unit), Routine HYDROmorphone (DILAUDID) injection 0.4 mg (COMPLETED) 1939 (Given - Provider: Pito Liu, RN) 0.4 mg, Intravenous, ONCE, 1 dose, Fri09/15/13 [...] (CANCELED) 0812 ( Given - Provider: Charo Mallory RN) 0832 (Given - Provider: Charo Mallory, RAFA) 0849 (Given - Provider: Chantell Hollins, RAFA) 500 mg, Oral, DAILY, First dose on Fri at 0900, Until Discontinued, Recovery (Recovery-Hospital Unit), Routine multivitamin Emxg-Wf-JJ-Min (THERAPEUTIC -M) 27-0.4 mg tablet 1 tablet (CANCELED) 0812 (Given - Provider: Charo Mallory RN) 0833 (Given - Provider: Charo Mallory RN) 0849 (Given - Provider: Chantell Hollins, RAAF) 1 tablet, Oral, DAILY, First dose on Fri09/15/13 at 0900, Until Discontinued, Recovery (Recovery-Hospital Unit), Routine oxyCODONE (oxyCONTIN) CR tablet 10 mg 11 59 (Given - Provider: Charo Mallory RN)2052 (Given - Provider: Pito Liu RN) 0855 (Given - Provider: Chantell Hollins, RAFA) 10 mg, Oral, EVERY 12 HOURS SCHEDULED (2 times per day), First dose on Ghislaine 09/16/13 at 1230, Until Discontinued, Routine polyethylene glycol (MIRALAX) packet 17 g 0811 (Given - Provider: Charo Mallory RN)2106 (Given - Provider: Pito iLu RN) 0833 (Given - Provider: Charo Mallory, RAFA)2052 (Given - Provider: Pito Liu RN) 0849 (Given - Provider: Chantell Hollins, RAFA) 17 g, Oral, 2 TIMES DAILY, First dose on Fri09/14/13 at 2315, Until Discontinued, Administer if needed per patient's routine or if no bowel movement within 48 hours, Recovery (Recovery-Hospital Unit), Routine senna-docusate (PERICOLACE) 8.6-50 mg per tablet 1-4 t ablet 0811 (Given - Provider: Charo Mallory, RAFA)2106 (Given - Provider: Pito Liu RN) 0833 (Given - Provider: Charo Mallory RN)2052 (Given - Provider: Pito Liu RN) 0854 [...] Liu RN)0816 (Given - Provider: Charo Mallory, RAFA)2146 (Given - Provider: Pito Liu RN) 0900 [...] RN) 0657 (New Bag - Provider: Charo Mallory RN) 0602 (New Bag - Provider: Pito Liu RN) 1,000 mL, at 100 mL/hr, Intravenous, CON TINUOUS, Starting 09/14/13 at 1745, Until 09/17/13 at 1708, Recovery (Recovery-Hospital Unit) PRN Medication Order 09/15/2013 09/16/2013 09/17/2013 HYDROmorphone (DILAUDID) tablet 2-6 mg (CANCELED) 1439 (Given - Provider: Charo Mallory, RAFA)1751 (Given - Provider: Charo Mallory RN)2342 (Given - Provider: Pito Liu RN) 2-6 mg, Oral, EVERY 4 HOURS PRN, Startin g 09/15/13 at 1426, Until Ghislaine 09/16/13 at 0333, Pain, Routine HYDROmorphone (DILAUDID) tablet 2-6 mg 0 350 (Given - Provider: Pito Liu RN)0640 (Given - Provider: Pito Liu RN)1028 (Given - Provider: Charo Mallory RN)1044 (MAY Hold - Provider: Admin Adt - Reason: Transfer to a Procedural area)1047 (MAR Unhold - Provider: Admin Adt) 0305 (Given - Provider: Pito Liu RN)0600 (Given - Provider: Pito Liu RN)1309 (Given - Provider: Chantell Hollins, RAFA)1502 (Given - Provider: Chantell Hollins RN - Comment: pt request before discharge) 2-6 mg, Oral, EVERY 3 HOURS PRN, Startin g Ghislaine 09/16/13 at 0345, Until 09/17/13 at 1708, Pain, Routine 1602 (Given - Provider: Simba Mallory, RAFA)2349 (Given - Provider: Pito Liu RN) ondansetron (ZOFRAN) injection 4 mg (CANCELED) 0822 (G iven - Provider: Charo J Reininghaus, RN)1732 (Given - Provider: Charo Mallory, RAFA) 4 mg, Intravenous, EVERY 8 HOURS PRN, St arting Fri09/14/13 at 2255, Until Fri09/17/13 at 1708, Nausea, Recovery (Recovery-Hospital Unit), Routine oxyCODONE (ROXICODONE) immediate release tablet 10 mg (CANCELED) 1158 (Given - Provider: Charo Mallory, RAFA) 10 mg, Oral, EVERY 4 HOURS PRN, Starting Fri09/14/13 at 1720, Until Fri09/15/13 at 1425, Pain, moderate pain, For Moderate pain. Do not exceed 15 mg in 4 hours. If pain not relieved, call provider., Recovery (Recovery-Hospital Unit), Routine documented in this encounter Care Teams Oyster Sorter Relationship Specialty Start Date End Date Malinda Mcmillan MD PCP - General 02/20/[address] [place] [address] documented as of this encounter
--- OUTSIDE RECORDS SUMMARY | 2021-10-15 18:58 | XMS_ITS | Encounter Summary ---
:1950 Author Organization [facility] [place] [address] Care Team Providers Name Role Phone Patricio Gabriel MD Primary Care Provider Encounter Details Date Type Department Care Team Description 07/21/2013 Telephone Spine Center at [facility] [place] [address] Social History Tobacco Use Types Packs/Day Years Used Date Current Every Day Smoker 0.25 Sex Assigned at Date Recorded Not on file documented as of this encounter Miscellaneous Notes Telephone Encounter - Lakhwinder Rudd - 07/21/2013 11:30 AM EDT I HAVE PENDED THIS ORDER TO BE SIGNED documented in this encounter Plan of Treatment Upcoming Encounters Date Type Specialty Care Team Description 12/28/2021 Office Visit Neurosurgery Nancy Fountain MD [facility] ER [address] [place], [place] [address] (Wo rk) documented as of this encounter Results Creatinine (07/23/2013 9:56 AM EDT) athologist Signature Creatinine 0.79 0.70 - 1.20 CERNER mg/dL [facility] Comment: Please note that the pediatric reference intervals supplied above were not validated at [facility]. Results from pediatri c patients should be interpreted in conjunction to the patient's age, height and muscle mass. Estimated GFR >60 >=60 ANELNER BABATUNDE Long Comment: This estimated GFR (eGFR) value was [...] Location / / Volume Laterality Blood specimen 07/23/2013 9:56 AM 014 (specimen) EDT 10:05 AM EDT Resulting Agency Comment Spec In Lab Collin Sargent MD CHEMISTRY ORDERABLES Performing Organization Address City/State/ZIP Code Phon e Number [address] LABORATORY [facility] documented in this encounter Visit Diagnoses Diagnosis Thoracic or lumbosacral neuritis or radi culitis, unspecified Lumbago Pain in limb documented in this encounter Care Teams Mechanic Senior Relationship Specialty Start Date End Date Patricio Gabriel MD PCP - General 02/20/[address] [place] [address] documented as of this encounter
--- OUTSIDE RECORDS SUMMARY | 2021-10-15 18:58 | XMS_ITS | Encounter Summary ---
:1950 [place] [address] Care Team Providers Name Role Phone Unavailable Primary Care Provider Unavailable Encounter Details Date Type Department Care Team Description 04/15/2007 Hospital Encounter Radiology Library at Tawanda Douglass MD [facility] [place] [address] [place] [address] [phone] (Wo rk) Social History Tobacco Use Types Packs/Day Years Used Date Never Assessed Sex Assigned at Date Recorded Not on file documented as of this encounter Plan of Treatment Upcoming Encounters Date Type Specialty Care Team Description 12/28/2021 Office Visit Neurosurgery Nancy Fountain MD [facility] NEUROSURGERY [place], [place] [address] (Wo rk) documented as of this encounter Procedures Procedure Name Priority Date/Time Associated Diagnosis Comme nts FILM LIBRARY Routine 04/15/2007 12:00 AM Pain Results for this STORAGE ONLY MR EST procedure ar e in SPINE the results section. documented in this encounter Results Film Library- Storage Only MR Spine (04/15/2007 12:00 AM EST) Specimen (Source) Anatomical Location Collection Method / Collectio n Time Received Time / Laterality Volume Narrative EVE - 01/09/2016 4:32 PM EDT This exam is for storage only and is aut o-finalizing. Tawanda Douglass MD IMG FILM LIBRARY ORDERABLES Performing Organization Address City/State/ZIP Code Phon e Number [place], [place] documented in this encounter Visit Diagnoses Diagnosis Pain Generalized pain documented in this encounter
--- OUTSIDE RECORDS SUMMARY | 2021-10-15 18:58 | XMS_ITS | Encounter Summary ---
:1950 Author Organization [facility] [place] [address] Care Team Providers Name Role Phone Patricio Gabriel MD Primary Care Provider Encounter Details Date Type Department Care Team Description 07/21/2013 Telephone Spine Center at [facility] [place] [address] Social History Tobacco Use Types Packs/Day Years Used Date Current Every Day Smoker 0.25 Sex Assigned at Date Recorded Not on file documented as of this encounter Miscellaneous Notes Telephone Encounter - Lakhwinder Rudd - 07/21/2013 11:51 AM EDT LEFT MESSAGE WITH APPT INFORMATION PER PT'S REQUEST. INFORMED PT THAT SHE WILL NEED LABS PRIOR TO MRI. documented in this encounter Plan of Treatment Upcoming Encounters Date Type Specialty Care Team Description 12/28/2021 Office Visit Neurosurgery Nancy Fountain MD [facility] ER NEUROSURGERY [place], [place] [address] (Wo rk) documented as of this encounter Visit Diagnoses Not on filedocumented in this encounter Care Teams Heel Shaver Relationship Specialty Start Date End Date Patricio Gabriel MD PCP - General 02/20/10 [address] [place] [address] documented as of this encounter
[2021-10-15 19:46] LABS: COMMENT (LAB VIEW ONLY) 18.31 mg/dL
== END 2021-10-15 18:38 | disposition home or self-care (01) ==
LOC: NCHCN 18:37
PROVIDERS: PCP Internal Medicine; Visit Provider Internal Medicine
DX: I10 Essential (primary) hypertension (principal); E11.9 Type 2 diabetes mellitus without complications
CPT/HCPCS: 82043; 82570

== ENCOUNTER 2021-10-17 18:46 | Outpatient (REF) | payer MEDICARE, SELFPAY ==
[2021-10-17 20:38] LABS: Bacteria Moderate HPF (Negative); Casts 0-2 Hyaline LPF (Negative); Crystals Negative HPF (Negative); Epithelial Cells Moderate HPF (Negative); Mucus Moderate (Negative); RBC 0-2 HPF (0-2); WBC 0-2 HPF (0-5)
[2021-10-17 20:39] LABS: C & S Indicated? No/Sq. Contamination
== END 2021-10-17 18:47 | disposition home or self-care (01) ==
LOC: NCHCN 18:46
PROVIDERS: PCP Internal Medicine; Visit Provider Internal Medicine
DX: R80.9 Proteinuria, unspecified (principal)
CPT/HCPCS: 81015

== ENCOUNTER 2021-10-19 21:46 | Outpatient (REF) | payer MEDICARE, SELFPAY ==
[2021-10-19 18:54] LABS: Creatinine,24hr Ur 0.67 g/24hr (0.60-1.80); Creatinine,Urine 25.78 mg/dL; PROTEIN 26.2 mg/dL (0.0-11.9); Total Volume 2600 ml
[2021-10-19 18:55] LABS: TOTAL PROTEIN,URINE TIMED 681.2 mg/24hr (0.0-149.1)
== END 2021-10-19 21:47 | disposition home or self-care (01) ==
LOC: NCHCN 21:46
PROVIDERS: PCP Internal Medicine; Visit Provider Internal Medicine
DX: R80.9 Proteinuria, unspecified (principal)
CPT/HCPCS: 81050; 82570; 84155

== ENCOUNTER 2021-10-23 18:52 | Outpatient (REF) | payer MEDICARE, SELFPAY ==
[2021-10-25 15:11] LABS: Albumin, Urine % 74.2 %; Albumin, Urine mg/dL 62 mg/dL; Globulins, Urine % 25.8 %; Globulins, Urine mg/dL 22 mg/dL; Immunotyping, Urine (See Note); Total Protein Urine 84 mg/dL (See Note)
== END 2021-10-23 18:53 | disposition home or self-care (01) ==
LOC: NCHCN 18:52
PROVIDERS: PCP Internal Medicine; Visit Provider Internal Medicine
DX: R80.9 Proteinuria, unspecified (principal)
CPT/HCPCS: 84156; 84166; 86335

== ENCOUNTER 2022-05-13 20:21 | Outpatient (REF) | payer MEDICARE, SELFPAY ==
[2022-05-13 22:20] LABS: Anion Gap 8.1 mmol/L (3-11); BUN 19 mg/dL (7-18); CO2 27.9 mmol/L (21.0-32.0); CREATININE 0.9 mg/dL (0.55-1.02); Calcium 9.7 mg/dL (8.5-10.1); Chloride 105 mmol/L (98-107); Estimated GFR 67.92 (mL/min/1.73m2); Glucose 120 mg/dL (74-106); Potassium 3.9 mmol/L (3.5-5.1); Sodium 141 mmol/L (136-145); Troponin I < 50 ng/L (<or=60)
[2022-05-13 22:25] LABS: D-Dimer 300 ng/mlFEU (<500)
== END 2022-05-13 20:22 | disposition home or self-care (01) ==
LOC: NCHCN 20:21
PROVIDERS: PCP Internal Medicine; Visit Provider Nurse Practitioner Family
DX: R00.2 Palpitations (principal); R06.02 Shortness of breath
CPT/HCPCS: 80048; 84443; 84484; 85379

== ENCOUNTER 2022-06-13 14:59 | Outpatient (REF) | payer MEDICARE, SELFPAY ==
[2022-06-13 19:41] LABS: COMMENT (LAB VIEW ONLY) 106.99 mg/dL; Prot/Crea Ur Ratio 1.75
[2022-06-13 19:54] LABS: COMMENT (LAB VIEW ONLY) 106.86 mg/dL
== END 2022-06-13 15:00 | disposition home or self-care (01) ==
LOC: NCHCN 14:59
PROVIDERS: PCP Internal Medicine; Visit Provider Internal Medicine
DX: R80.9 Proteinuria, unspecified (principal)
CPT/HCPCS: 82043; 82565; 82570; 84156

== ENCOUNTER 2022-06-19 17:06 | Outpatient (REF) | payer MEDICARE, SELFPAY ==
[2022-06-21 09:33] LABS: C3 Complement 144 mg/dL (81-157); C4 Complement 20 mg/dL (13-39)
[2022-06-21 09:34] LABS: Hepatitis C Ab w Rflx HCV PCR Negative (Negative)
[2022-06-21 12:13] LABS: Hepatitis B Surface Ag Negative (Negative)
[2022-06-21 14:44] LABS: Albumin 59.2 % (55.8-66.1); Albumin g/dL 3.9 g/dL (3.6-5.2); Immunotyping, Serum (See Note); Total Protein 6.6 g/dL (6.3-8.2)
[2022-06-21 16:03] LABS: ANA Interpretation Negative (Negative)
[2022-06-22 12:05] LABS: c-ANCA Negative (Negative); p-ANCA Negative (Negative)
== END 2022-06-19 17:07 | disposition home or self-care (01) ==
LOC: NCHCN 17:06
PROVIDERS: PCP Internal Medicine; Visit Provider Internal Medicine
DX: E11.9 Type 2 diabetes mellitus without complications (principal); I10 Essential (primary) hypertension; K76.0 Fatty (change of) liver, not elsewhere classified; J84.10 Pulmonary fibrosis, unspecified
CPT/HCPCS: 86803; 87340; 84155; 84165; 86038; 86160; 86162; 86255; 86320

== ENCOUNTER 2024-04-12 13:59 | Outpatient (REF) | payer MEDICARE, SELFPAY ==
--- OUTSIDE RECORDS SUMMARY | 2024-04-12 14:07 | XMS_ITS | Continuity of Care Document ---
Author Organization [facility] Address [address] [place] [address] Care Team Providers Care Design Coordinator Name Role Phone Patricio Zarate Primary Care Physician [facility] - 10/27/[address] [address] Discharge Disposition: Home Allergies, Adverse Reactions, Alerts Substance Reaction Severity Status meperidine Other Unknown Active prochlorperazine Other Unknown Active simvastatin Other Unknown Active Assessment and Plan Future Scheduled Tests Radiology* MG Mammo Screening Bilateral w/ Damon 10/27/23 Immunizations Given and Recorded Vaccine Date Status Refusal Reason rubella virus vaccine 03/31/00 Recorded varicella virus vaccine 03/31/00 Recorded Medications estradiol 0.5 mg oral tablet 0.5 mg = 1 tab, Oral, Daily, # 90 tab, 3 Refill(s), [id number] Start Date: 05/27/22 Status: Ordered Procedures Procedure Date Related Diagnosis Body Site Status PAP test date 1 07/30/06 Completed 12-06-2006 07/31/2006 Neg/Neg no further paps; had hyst Social History Social History Type Response Sex Female Patient Care team information Care Team Personnel Name: Patricio Zarate MD Position: No Access Member Role: Primary Care Physician Address: Address: [facility] [address] [place], [place] [address] Care Team Related Persons Name: ROYA STOKES Address: Home [address] [facility], [id number]
--- OUTSIDE RECORDS SUMMARY | 2024-04-12 14:07 | XMS_ITS | Encounter Summary ---
Author Organization [facility] [place] [address] Care Team Providers Care Progress Developer Name Role Phone Patricio Gabriel MD Primary Care Provider Encounter Details Date Type Department Care Team (Latest Contact Info) Description 09/24/2023 9:45 AM EDT Laboratory Appointment Lab [address] [place] [phone] Proteinuria, unspecified type Social History Tobacco Use Types Packs/Day Years Used Date Smoking Tobacco: Former Cigarettes Q uit: 05/29/2013 Smokeless Tobacco: Never Alcohol Use Standard Drinks/Week Comments Not Currently 0 (1 standard drink = 0.6 oz pur e alcohol) Sex and Gender Information Value Date Recorded Sex Assigned at Not on file Gender Identity Not on file Sexual Orientation Not on file documented as of this encounter Plan of Treatment Not on file documented as of this encounter Procedures Procedure Name Priority Date/Time Associated Diagnosis Comments PROTEIN/CREATININE RATIO, URINE Routine 09/24/2023 9:34 AM EDT Proteinuria, unspecified type HEMOGRAM Routine 09/24/2023 9:13 AM EDT Proteinuria, unspecified type DIFFERENTIAL, AUTOMATED Routine 09/24/2023 9:13 AM EDT Proteinuria, unspecified type CBC (WITH DIFF) Routine 09/24/2023 9:13 AM EDT Proteinuria, unspecified type BASIC METABOLIC PANEL Routine 09/24/2023 9:13 AM EDT Proteinuria, unspecified type documented in this encounter Results * (ABNORMAL) Protein/Creatinine Ratio, urine (09/24/2023 9:34 AM EDT) Creatinine, Urine 57 mg/dL [facility] Protein, Urine 46(H) 0 - 12 mg/dL [facility] Protein / Creatinine Ratio, Urine 0.8 ratio [facility] Urine 09/24/2023 9:34 AM EDT 09/24/2023 9:37 AM EDT Narrative Resulting Agency Comment Spec In Lab Teri Marquez APRN URINE ORDERABLE S [facility] [place] [address] * Differential, Automated (09/24/2023 9:13 AM EDT) Neutrophil % 65.2 % [facility] Neutrophil Absolute 5.92 1.70 - 6.10 x10(3)/[facility] LABORATORY Lymph % 24.4 % [facility] Lymphocytes Abs 2.2 0.9 - 3.2 x10(3)/[facility] LABORATORY Monocyte % 7.7 % [facility] Monocyte Abs 0.7 0.3 - 0.9 x10(3)/[facility] LABORATORY Eos % 1.9 % [facility] Eosinophils Abs 0.2 0.0 - 0.4 x10(3)/[facility] LAB[facility]AT[facility] Basophil % 0.4 % [facility] Baso Absolute 0.0 0.0 - 0.1 x10(3)/[facility] LAB[facility]ATORY Immature Gran % 0.40 % [facility] Comment: Immature granulocytes(IG's)percentage and absolute count will include metamyelocytes, myelocytes, and promyelocytes. Blood smears from CBCs yielding IG's will be scanned manually for concordance. If this scan disagrees with the automated IG or if promyelocytes are noted, a manual differential will be performed. Immature Gran Absolute 0.04 0.00 - 0.04 x10(3)/[facility] Blood 09/24/2023 9:13 AM EDT 09/24/2023 9:39 AM EDT Narrative Resulting Agency Comment Spec In Lab Teri Christiano Marquez APRN HEMATOLOGY ORDE ANNA MARIE [facility] [place] [address] * (ABNORMAL) Hemogram (09/24/2023 9:13 AM EDT) White Blood Cell 9.1 4.0 - 9.5 x10(3)/[facility] Red Blood Cell 4.20 4.00 - 5.21 x10(6)/[facility] Hemoglobin 13.6 11.7 - 15.5 g/dL [facility] Hematocrit 41.3 35.7 - 45.8 % [facility] Mean Cell Volume 98.3(H) 82.6 - 94.4 fL [facility] Mean Cell Hemoglobin 32.4(H) 27.1 - 32.0 pg [facility] Mean Cell Hemoglobin Concentration 32.9 31.7 - 35.0 g/dL [facility] Platelet 209 145 - 357 x10(3)/[facility] RDW Standard Deviation 45.1 37.0 - 46.0 [facility] RDW coefficient of variation 12.6 11.5 - 14.1 % [facility] Mean Platelet Volume 10.3 7.6 - 12.9 fL [facility] NRBC% auto 0.0 % [facility] NRBC Absolute 0.000 0.000 - 0.000 x10(3)/[facility] Blood 09/24/2023 9:13 AM EDT 09/24/2023 9:39 AM EDT Narrative Resulting Agency Comment Spec In Lab Teri Marquez APRN HEMATOLOGY ORDE ANNA MARIE [facility] [place] [address] * (ABNORMAL) Basic Metabolic Panel (non-fasting) (09/24/2023 9:13 AM EDT) Glucose 218(H) 65 - 199 mg/dL [facility] Comment:Diabetes: >=200 mg/d L plus symptoms Blood Urea Nitrogen 14 8 - 18 mg/dL [facility] Creatinine 0.90 0.70 - 1.20 mg/dL [facility] Sodium 140 135 - 145 mmol/L [facility] Potassium 3.9 3.5 - 5.0 mmol/L [facility] Comment: Please note: ??Patients with WBC >100,000 may have falsely elevated Potassium levels. ??For accurate Potassium quantification in these patients send serum separator tube (gold top) for subsequent determinations. ??Contact the Clinical Chemistry Laboratory if there are any questions. Chloride 103 98 - 107 mmol/L [facility] Carbon Dioxide 26 22 - 31 mmol/L [facility] Anion Gap 11 5 - 15 mmol/L [facility] Calcium 8.9 8.5 - 10.5 mg/dL [facility] Est Glomerular Filtration Rate 68 >=60 mL/min/1. 73 m?? [facility] Comment: This patient's estimated GFR was calculated using the 2020 CKD-EPI equation. The estimated GFR can vary from the measured GFR by up to 30% in the absence of rapidly changing kidney function. Assessment of the estimated GFR is not appropriate when creatinine concentrations are rapidly changing. For clinical situations in which a more precise estimate of GFR is necessary, consider alternative methods of GFR estimation such as a 24-hour urine creatinine clearance. Assignment of CKD stage 1-5 for patients with an eGFR near the transition point between stages may be based on clinical assessment of muscle mass and symptoms in addition to eGFR. Blood 09/24/2023 9:13 AM EDT 09/24/2023 9:20 AM EDT Narrative Resulting Agency Comment Spec In Lab Teri J Jimmy NEONATAL ICU COORDINATOR CHEMISTRY ORDER IZZY [facility] [place] [address] documented in this encounter Visit Diagnoses Diagnosis Proteinuria, unspecified type documented in this encounter Care Teams Progress Developer Relationship Specialty Start Date End Date Patricio Gabriel MD [address] [place] [address] PCP - General 02/20/10 documented as of this encounter
--- OUTSIDE RECORDS SUMMARY | 2024-04-12 14:07 | XMS_ITS | Encounter Summary ---
[place] [address] Care Team Providers Care Parachute/Combatant Diver Officer Name Role Phone Patricio Gabriel MD Primary Care Provider [phone] Reason for Referral * Diagnostic Test (Routine) - Closed Specialty Diagnoses / Procedures Referred By Contac t Referred To Contact Neurology Diagnoses Diabetic peripheral neuropathy Patricio Gabriel MD [address] [place] [address] [facility] [address] [place] [phone] Referral ID Status Reason Start Date Expiration Date V isits Requested Visits Authorized [id number] Closed Test Only 09/04/2023 09/03/2024 1 1 Encounter Details Date Type Department Care Team (Latest Contact Info) Description 09/04/2023 Transcribe Orders eDH Incoming Referrals [phone] Patricio Gabriel MD [address] [place] [phone] Diabetic peripheral neuropathy (Primary Dx) Social History Tobacco Use Types Packs/Day Years [...] as of this encounter Plan of Treatment Scheduled Referrals Name Type Priority Associated Diagnoses Orde r Schedule Referral to Neurology Outpatient Referral Routine Diabetic peripheral neuropathy Ordered: 09/04/2023 documented as of this encounter Visit Diagnoses Diagnosis Diabetic peripheral neuropathy- Primary Type II or unspecified type diabetes mellitus with neurological manifestations, not stated as uncontrolled documented in this encounter Care Teams Parachute/Combatant Diver Officer Relationship Specialty Start Date End Date Patricio Gabriel MD [address] [place] [address] PCP - General 02/20/10 documented as of this encounter
--- OUTSIDE RECORDS SUMMARY | 2024-04-12 14:07 | XMS_ITS | Continuity of Care Document ---
Author Organization [facility] Address [address] [place] [address] Care Team Providers Care Label Sewer Name Role Phone Patricio Zarate Primary Care Physician Encounter [facility] Date(s): 09/18/22 - 09/18/[address] [address] Discharge Disposition: Home Allergies, Adverse Reactions, Alerts Substance Reaction Severity Status meperidine Other Unknown Active prochlorperazine Other Unknown Active simvastatin Other Unknown Active Assessment and Plan Future Scheduled Tests Radiology* MG Mammo Screening Bilateral w/ Damon 09/18/22 Immunizations Given and Recorded Vaccine Date Status Refusal Reason rubella virus vaccine 03/31/00 Recorded varicella virus vaccine 03/31/00 Recorded Medications estradiol 0.5 mg oral tablet 0.5 mg = 1 tab, Oral, Daily, # 90 tab, 3 Refill(s), Pharmacy: [id number] Start Date: 05/27/22 Status: Ordered Procedures Procedure Date Related Diagnosis Body Site Status PAP test date 1 07/30/06 Completed 12-06-2006 07/31/2006 Neg/Neg no further paps; had hyst Social History Social History Type Response Sex Female Patient Care team information Care Team Personnel Name: Patricio Zarate MD Position: No Access Member Role: Primary Care Physician Address: Address: [facility] [address] [place] [address]- Care Team Related Persons Name: ROYA STOKES Address: Home [address] [facility], [id number]
--- OUTSIDE RECORDS SUMMARY | 2024-04-12 14:07 | XMS_ITS | Continuity of Care Document ---
Author Organization [facility] Address [address] [place] [address] Care Team Providers Care Heavy Duty Truck Mechanic Name Role Phone [place] IPHCPatricio Primary Care Physician Encounter [facility] Date(s): 05/16/22 - 05/16/[address] [address] Discharge Disposition: Home or Self Care Attending Physician: Clover Burleson WATER QUALITY ANALYST Admitting Physician: Clover Burleson NP Referring Physician: Clover Burleson WATER QUALITY ANALYST Allergies, Adverse Reactions, Alerts Substance Reaction Severity Status meperidine Other Unknown Active prochlorperazine Other Unknown Active simvastatin Other Unknown Active Immunizations Given and Recorded Vaccine Date Status Refusal Reason rubella virus vaccine 03/31/00 Recorded varicella virus vaccine 03/31/00 Recorded Medications estradiol 0.5 mg oral tablet 0.5 mg = 1 tab, Oral, Daily, # 90 tab, 0 Refill(s), Pharmacy: [facility] Start Date: 01/15/22 Status: Ordered Procedures Procedure Date Related Diagnosis Body Site Status PAP test date 1 07/30/06 Completed 12-06-2006 07/31/2006 Neg/Neg no further paps; had hyst Social History Social History Type Response Sex Female Ambulatory cardiac rhythm monitor (Holter) study * Teri Seay: PERFORM Event Display: Holter Monitor Authored Date: [id number] ERICK STOKES 1950 [id number] Patient placed on Holter Monitor 48 Hourson 05/16/22. Electronically Signed on 05/16/22 10:09 AM Teri Seay Patient Care team information Care Team Personnel Name: Patricio Zarate MD Position: No Access Member Role: Primary Care Physician Address: Address: [place] [address]- Care Team Related Persons Name: ROYA STOKES Address: Home [address] [facility] [facility] [id number]
--- OUTSIDE RECORDS SUMMARY | 2024-04-12 14:07 | XMS_ITS | Encounter Summary ---
Author Organization [facility] [place] [address] Care Team Providers Care Packing Machine Feeder Name Role Phone Patricio Gabriel MD Primary Care Provider [phone] Encounter Details Date Type Department Care Team (Late st Contact Info) Description 12/30/2023 External [place] [address] Hayden Snell MD [facility] [place] [address] Social History Tobacco Use Types Packs/Day Years [...] Procedure Name Priority Date/Time Associated Diagnosis Comments EMG SCAN Routine 12/29/2023 7:46 AM EDT documented in this encounter Results * Scan Doc: EMG (12/29/2023 7:46 AM EDT) Hayden Snell MD MEDIA MGR SCAN EXT O RDR/RSLT documented in this encounter Visit Diagnoses Not on filedocumented in this encounter Care Teams Packing Machine Feeder Relationship Specialty Start Date End Date Patricio Gabriel MD [address] [address] PCP - General 02/20/10 documented as of this encounter
--- OUTSIDE RECORDS SUMMARY | 2024-04-12 14:07 | XMS_ITS | Continuity of Care Document ---
Author Organization [facility] Address [address] [place] [address] Care Team Providers Care Insurance Sales Agent Name Role Phone Patricio Zarate Primary Care Physician Encounter [facility] Date(s): 05/20/22 - 05/20/[address] [address] Discharge Disposition: Home or Self Care Attending Physician: Clover Burleson OBSTETRICIAN GYNECOLOGIST Admitting Physician: Clover Burleson NP Referring Physician: Clover Burleson OBSTETRICIAN GYNECOLOGIST Allergies, Adverse Reactions, Alerts Substance Reaction Severity Status meperidine Other Unknown Active prochlorperazine Other Unknown Active simvastatin Other Unknown Active Immunizations Given and Recorded Vaccine Date Status Refusal Reason rubella virus vaccine 03/31/00 Recorded varicella virus vaccine 03/31/00 Recorded Medications estradiol 0.5 mg oral tablet 0.5 mg = 1 tab, Oral, Daily, # 90 tab, 0 Refill(s), Pharmacy: [id number] Start Date: 01/15/22 Status: Ordered Procedures Procedure Date Related Diagnosis Body Site Status PAP test date 1 07/30/06 Completed 12-06-2006 07/31/2006 Neg/Neg no further paps; had hyst Social History Social History Type Response Sex Female Patient Care team information Care Team Personnel Name: Patricio Zarate MD Position: No Access Member Role: Primary Care Physician Address: Address: [facility] [address] [place], [place] [address] Care Team Related Persons Name: ROYA STOKES Address: Home [address] [facility], [id number]
--- OUTSIDE RECORDS SUMMARY | 2024-04-12 14:07 | XMS_ITS | Continuity of Care Document ---
Author Organization [facility] Address [address] [place] [address] Care Team Providers Care Cloth Piecer Name Role Phone Harvey Patricio LOPEZ Primary Care Physician Encounter [place] Date(s): 02/24/24 - 02/24/[address] [address] Discharge Disposition: Home or Self Care Attending Physician: Dwayne Acosta MD Admitting Physician: Dwayne Acosta MD Referring Physician: Dwayne Acosta MD Allergies, Adverse Reactions, Alerts Substance Criticality Severity Reaction Reaction Severity Status meperidine Unable to assess criticality Unknown Other Active prochlorperazine Unable to assess criticality Unknown Other Active simvastatin Unable to assess criticality Unknown Other Active Assessment and Plan Future Scheduled Tests Radiology* MG Mammo Screening Bilateral w/ Damon 02/24/24 Immunizations Given and Recorded Vaccine Date Status Refusal Reason rubella virus vaccine 03/31/00 Recorded varicella virus vaccine 03/31/00 Recorded Medications atenolol 25 mg oral tablet 0 Refill(s) Start Date: 02/24/24 Status: Ordered clotrimazole 1% topical cream 1 joshua, Topical, BID, # 60 g, 1 Refill(s), Pharmacy: [id number], 160, cm, 02/24/24 9:55:00 EST, Height, 67.75, kg, 02/24/24 10:06:00 EST, Weight Dosing Start Date: 02/24/24 Status: Ordered estradiol 1 mg oral tablet 1 mg = 1 tab, Oral, Daily, # 90 tab, 3 Refill(s), Pharmacy: [id number], 160, cm, 02/24/24 9:55:00 EST, Height, 67.75, kg, 02/24/24 10:06:00 EST, Weight Dosing Start Date: 02/24/24 Status: Ordered gabapentin 300 mg oral capsule 0 Refill(s) Start Date: 02/24/24 Status: Ordered latanoprost 0.005% ophthalmic solution 0 Refill(s) Start Date: 02/24/24 Status: Ordered lisinopril 20 mg oral tablet 0 Refill(s) Start Date: 02/24/24 Status: Ordered metFORMIN 850 mg oral tablet 0 Refill(s) Start Date: 02/24/24 Status: Ordered rosuvastatin 10 mg oral tablet 0 Refill(s) Start Date: 02/24/24 Status: Ordered Problem List Condition Confirmation Course Effective Dates Status Health St atus Informant Tinea Confirmed Active Menopause Confirmed Active Procedures Procedure Date Related Diagnosis Body Site Status No further PAPs due to hyst 1 07/30/06 Completed Hysterectomy 11/26/05 Completed Appendectomy Completed Back Surgery at [facility] 2 Co mpleted Cholecystectomy Completed Colonoscopy Completed Hernia repair Completed Oophorectomy Right 1974 & Left 2002 Completed Pilonidal cyst Completed 12-06-2006 07/31/2006 Neg/Neg no further paps; had hyst 2L4-S1 revision hemilaminectomy and right L4-L5 diskectomy 09/14/2013. Left L3 through L5 decompressive surgery in 2004. Results Laboratory List Name Date TSH w/ Rflx to Free T4 02/24/24 Most recent to oldest [Reference Range]: 1 TSH [0.358-3.740 mcIntlUnit/mL] 1.261 mc IntlUnit/mL (02/24/24 10:36 AM) Social History Social History Type Response Tobacco Former tobacco user Tobacco Use:. Sex Female Sex Representation Female (finding) Patient Care team information Care Team Personnel Name: Patricio Zarate MD Position: No Access Member Role: Primary Care Physician Address: [address] Care Team Related Persons Name: ROYA STOKES Insurance Providers Guarantor name: ERICK STOKES Health Plan Information #: 2 [address]ayer: [facility] OPTIONS MEDICARE SUPPLEMENT Member Number: [id number] Policy Number: NA Health Plan Information #: 1 Payer: MEDICARE B [facility] Member Number: [id number] Policy Number: KATE
--- OUTSIDE RECORDS SUMMARY | 2024-04-12 14:07 | XMS_ITS | Encounter Summary ---
[place] [address] Care Team Providers Care Product Safety Administrator Name Role Phone Patricio Gabriel MD Primary Care Provider Reason for Referral * Consultation (Routine) - Closed Specialty Diagnoses / Procedures Referred By Contac t Referred To Contact Neurology Diagnoses Essential tremor THIS IS A FUNCTIONAL AND COGNITIVELY INTACT 73 YEAR OLD WOMEN WHO HAS PROGRESSION OF LOW-FREQUENCY TREMOR INVOLVING TRUNK AND RIGHT UPPER EXTREMITY. HER FATHER HAD PARKINSONS DISEASE, AND THIS TREMOR HAS BEEN PRESENT AT REST. SHE HAS NOT DEVELOPED ANY OTHER SYMPTOMS TO SUGGEST PARKINSONS OVER THE PAST YEAR AND THE TREMOR IS WORSE WITH INTENTION OR ANXIETY. SHE HAS SIG MULTIFACTORIAL GAIT DISRUPTION, BUT THERE IS NO FESTINATION. I THINK THE GAIT DISRUPTION IS PRIMARILY DUE TO SEVERE AND STABLE HYPESTHESIA ASSOCIATED WITH RIGHT L5 RADICULITIS, THAT HAS NOT CHANGED MUCH SINCE HER FIRST BACK SURGERY BACK IN 2012. Patricio Gabriel MD [address] [address] [facility] [address] [place] [phone] Referral ID Status Reason Start Date Expiration Date V isits Requested Visits Authorized [id number] Closed Consult, Test & Treat PCP Updated and/or Approved 05/30/2023 05/29/2024 12 12 Encounter Details Date Type Department Care Team (Late st Contact Info) Description 06/05/2023 Transcribe Orders eDH Incoming Referrals [phone] Patricio Gabriel MD [address] [place] [address] Essential tremor Social History Tobacco Use Types Packs/Day Years [...] Schedule Referral to Neurology Outpatient Referral Routine Essential tremor Ordered: 06/05/2023 documented as of this encounter Visit Diagnoses Diagnosis Essential tremor Essential and other specified forms of tremor documented in this encounter Care Teams Product Safety Administrator Relationship Specialty Start Date End Date Patricio Gabriel MD [address] [place] [address] PCP - General 02/20/10 documented as of this encounter
--- OUTSIDE RECORDS SUMMARY | 2024-04-12 14:07 | XMS_ITS | Continuity of Care Document ---
Author Organization [facility] Address [address] [place] [address] Care Team Providers Care Forestry Laborer Name Role Phone Patricio Zarate Primary Care Physician Encounter [place] Date(s): 12/19/23 - 12/19/[address] [address] Encounter Diagnosis Screening for breast cancer(Discharge Diagnosis) - 12/19/23 Discharge Disposition: Home or Self Care Attending Physician: Dwayne Acosta MD Admitting Physician: Dwayne Acosta MD Referring Physician: Dwayne Acosta MD Allergies, Adverse Reactions, Alerts Substance Criticality Severity Reaction Reaction Severity Status meperidine Unable to assess criticality Unknown Other Active prochlorperazine Unable to assess criticality Unknown Other Active simvastatin Unable to assess criticality Unknown Other Active Immunizations Given and Recorded Vaccine Date Status Refusal Reason rubella virus vaccine 03/31/00 Recorded varicella virus vaccine 03/31/00 Recorded Medications estradiol 0.5 mg oral tablet 0.5 mg = 1 tab, Oral, Daily, # 90 tab, 3 Refill(s), Pharmacy: [id number] Start Date: 05/27/22 Status: Ordered Procedures Procedure Date Related Diagnosis Body Site Status PAP test date 1 07/30/06 Completed 12-06-2006 07/31/2006 Neg/Neg no further paps; had hyst Social History Social History Type Response Sex Female Sex Representation Female (finding) Patient Care team information Care Team Personnel Name: Patricio Zarate MD Position: No Access Member Role: Primary Care Physician Address: [address] [address] Care Team Related Persons Name: ORYA STOKES Insurance Providers Guarantor name: ERICK STOKES Health Plan Information #: 2 Payer: [facility] OPTIONS MEDICARE SUPPLEMENT Member Number: [id number] Policy Number: NA Health Plan Information #: 1 Payer: MEDICARE B [employer] Member Number: [id number] Policy Number: NA
--- OUTSIDE RECORDS SUMMARY | 2024-04-12 14:07 | XMS_ITS | Continuity of Care Document ---
Author Organization [facility] Address [address] [place] [address] Care Team Providers Care Manufacturing Director Name Role Phone Patricio Zarate Primary Care Physician Encounter [place] Date(s): 10/18/22 - 10/18/[address] [address] Encounter Diagnosis Screening for breast cancer(Discharge Diagnosis) - 10/18/22 Discharge Disposition: Home or Self Care Attending Physician: Dwayne Acosta MD Admitting Physician: Dwayne Acosta MD Referring Physician: Dwayne Acosta MD Allergies, Adverse Reactions, Alerts Substance Reaction Severity Status meperidine Other Unknown Active prochlorperazine Other Unknown Active simvastatin Other Unknown Active Immunizations Given and Recorded Vaccine Date Status Refusal Reason rubella virus vaccine 03/31/00 Recorded varicella virus vaccine 03/31/00 Recorded Medications estradiol 0.5 mg oral tablet 0.5 mg = 1 tab, Oral, Daily, # 90 tab, 3 Refill(s), Pharmacy: [id number] Start Date: 05/27/22 Status: Ordered Procedures Procedure Date Related Diagnosis Body Site Status PAP test date 1 07/30/06 Completed 12-06-2006 07/31/2006 Neg/Neg no further paps; had hyst Social History Social History Type Response Sex Female Patient Care team information Care Team Personnel Name: Patricio Zarate MD Position: No Access Member Role: Primary Care Physician Address: Address: [facility] [address] [place] [address]- [place] Care Team Related Persons Name: ROYA STOKES Address: Home [address] [facility] [id number]
--- OUTSIDE RECORDS SUMMARY | 2024-04-12 14:07 | XMS_ITS | Encounter Summary ---
Author Organization [facility] Address [facility] [place] [address] Care Team Providers Care Quality Control Microbiologist Name Role Phone Patricio Gabriel MD Primary Care Provider [phone] Reason for Visit * Diagnostic Test (Routine) - Closed Specialty Diagnoses / Procedures Referred By Contac t Referred To Contact Neurology Diagnoses Diabetic peripheral neuropathy Patricio Gabriel MD [address] [address] [facility] [address] [place] [address] Referral ID Status Reason Start Date Expiration Date V isits Requested Visits Authorized [id number] Closed Test Only 09/04/2023 09/03/2024 1 1 Encounter Details Date Type Department Care Team (Latest Contact Info) Description 12/29/2023 2:00 PM EDT Procedure [place] [id number] Hayden Snell MD [facility] [place] [address] Right leg paresthesias Social History Tobacco Use Types Packs/Day Years [...] documented as of this encounter Progress Notes * Hayden Snell MD - 12/29/2023 2:00 PM EDT EMG procedure note Yesi Estrella was seen for EMG nerve conduction studies at the request of Patricio Gabriel MD for further evaluation of lumbosacral radiculopathy versus diabetic peripheral neuropathy. She noteschronic pain radiating down her right leg and has numbness and tingling of the right leg distally. She has a history of lumbosacral spine surgeries x 3. She denies numbness or tingling of the left leg. Please see scanned report for complete data. The right sural study is normal. The right peroneal and right distal tibial motor studies are normal. The right peroneal and right tibial F waves are normal. EMG of the right lower extremity for tibialis anterior shows no active denervation. There were chronic neuropathic changes and reduced muscle activation. The right gastroc reveals active denervation. There was also reduced muscle activation.Right peroneus longus shows no active denervation. There were chronic neuropathic changes and mildly reduced recruitment. Right bicep femoris short head shows no active denervation. There were normalmotor unit action potentials. Right vastus lateralis and iliopsoas show no active denervation. There were normal motor unit action potentials. Lumbosacral paraspinal muscles were not sampled in the context of history of lumbar spine surgery. Assessment: Results are consistent with a chronic right L5/S1 radiculopathy. There is no electrodiagnostic evidence of a generalized peripheral neuropathy. Active denervation was confined to right gastroc. EMG was limited as lumbar sacral paraspinal muscles were not sampled in the context of the lumbar spine surgery. In addition reduced activation in the muscles indicated can occur secondary to pain, reduced effort, or central weakness. Clinical correlation is recommended. Yesi Estrella will follow-up with Patricio Gabriel MD documented in this encounter Plan of Treatment Scheduled Referrals Name Type Priority Associated Diagnoses Orde r Schedule Referral to Neurology Outpatient Referral Routine Diabetic peripheral neuropathy Ordered: 09/04/2023 documented as of this encounter Visit Diagnoses Diagnosis Right leg paresthesias Disturbance of skin sensation documented in this encounter Care Teams Quality Control Microbiologist Relationship Specialty Start Date End Date Patricio Gabriel MD [address] [place] [address] PCP - General 02/20/10 documented as of this encounter
--- OUTSIDE RECORDS SUMMARY | 2024-04-12 14:07 | XMS_ITS | Continuity of Care Document ---
Author Organization [facility] Address [address] [place] [address] Care Team Providers Care Assembler Clip On Sunglasses Name Role Phone Patricio Zarate Primary Care Physician Encounter [place] Date(s): 06/20/22 - 06/20/[address] [address] Discharge Disposition: Home or Self Care Attending Physician: Patricio aZrate MD Admitting Physician: Patricio Zarate MD Referring Physician: Patricio Zarate MD Allergies, Adverse Reactions, Alerts Substance Reaction Severity Status meperidine Other Unknown Active prochlorperazine Other Unknown Active simvastatin Other Unknown Active Immunizations Given and Recorded Vaccine Date Status Refusal Reason rubella virus vaccine 03/31/00 Recorded varicella virus vaccine 03/31/00 Recorded Medications estradiol 0.5 mg oral tablet 0.5 mg = 1 tab, Oral, Daily, # 90 tab, 3 Refill(s), Pharmacy: [id number] Start Date: 05/27/22 Status: Ordered Procedures Procedure Date Related Diagnosis Body Site Status PAP test date 1 07/30/06 Completed 12-06-2006 07/31/2006 Neg/Neg no further paps; had hyst Social History Social History Type Response Sex Female Pulmonary function study * Shruti Huggins: PERFORM Event Display: Pulmonary Function Studies Authored Date: [id number] Patient Care team information Care Team Personnel Name: Patricio Zarate MD Position: No Access Member Role: Primary Care Physician Address: Address: [facility] [address] [place], [place] [address] Care Team Related Persons Name: ROYA STOKES Address: Home [address] [facility], [id number]
--- OUTSIDE RECORDS SUMMARY | 2024-04-12 14:07 | XMS_ITS | Continuity of Care Document ---
Author Organization [facility] Address [address] [place] [address] Care Team Providers Care Scientific Diver Name Role Phone Patricio Zarate Primary Care Physician Encounter [place] Date(s): 06/21/22 - 06/21/[address] [address] Discharge Disposition: Home or Self Care Attending Physician: Patricio Zarate MD Admitting Physician: Patricio Zarate MD Referring Physician: Patricio Zarate MD Allergies, Adverse Reactions, Alerts Substance Reaction Severity Status meperidine Other Unknown Active prochlorperazine Other Unknown Active simvastatin Other Unknown Active Assessment and Plan Diagnostic Tests Pending * Complement, Total, S ARECHIGA 06/21/22 Immunizations Given and Recorded Vaccine Date Status Refusal Reason rubella virus vaccine 03/31/00 Recorded varicella virus vaccine 03/31/00 Recorded Medications estradiol 0.5 mg oral tablet 0.5 mg = 1 tab, Oral, Daily, # 90 tab, 3 Refill(s), Pharmacy: [id number] Start Date: 05/27/22 Status: Ordered Procedures Procedure Date Related Diagnosis Body Site Status PAP test date 1 07/30/06 Completed 12-06-2006 07/31/2006 Neg/Neg no further paps; had hyst Social History Social History Type Response Sex Female Patient Care team information Care Team Personnel Name: Patricio Zarate MD Position: No Access Member Role: Primary Care Physician Address: Address: [facility] [address] [place] [address] [place] Care Team Related Persons Name: ROYA STOKES Address: Home [address] [facility], [id number]
--- OUTSIDE RECORDS SUMMARY | 2024-04-12 14:07 | XMS_ITS | Continuity of Care Document ---
Author Organization [facility] Address [address] [place] [address] Care Team Providers Care Repair Order Clerk Name Role Phone Harvey [facility], Patricio Ann Primary Care Physician Encounter [place] Date(s): 02/24/24 - 02/24/[address] [address] Discharge Disposition: Home Allergies, Adverse Reactions, Alerts Substance Criticality Severity [...] BID, # 60 g, 1 Refill(s), Pharmacy: [facility], 160, cm, 02/24/24 9:55:00 EST, Height, 67.75, kg, 02/24/24 10:06:00 EST, Weight Dosing Start Date: 02/24/24 Status: Ordered estradiol 1 mg oral tablet 1 mg = 1 tab, Oral, Daily, # 90 tab, 3 Refill(s), Pharmacy: [id number], 160, cm, 02/24/24 9:55:00 EST, [...] 11/26/05 Completed Appendectomy Completed Back Surgery at [facility] [place] 2 Co mpleted Cholecystectomy Completed Colonoscopy Completed Hernia repair Completed Oophorectomy Right 1974 & Left 2002 Completed Pilonidal cyst Completed 12-06-2006 07/31/2006 Neg/Neg no further paps; had hyst 2L4-S1 revision hemilaminectomy and right L4-L5 diskectomy 09/14/2013. Left L3 through L5 decompressive surgery in 2004. Social History Social History Type Response Tobacco Former tobacco user Tobacco Use:. Sex Female Sex Representation Female (finding) Patient Care team information Care Team Personnel Name: Patricio Zarate MD Position: No Access Member Role: Primary Care Physician Address: [address] Care Team Related Persons Name: ROYA STOKES Insurance Providers Guarantor name: ERICK STOKES Health Plan Information #: 1 Payer: MEDICARE B [employer] Member Number: NA Policy Number: NA Health Plan Information #: 2 Payer: [employer] OPTIONS MEDICARE SUPPLEMENT Member Number: NA Policy Number: NA
--- OUTSIDE RECORDS SUMMARY | 2024-04-12 14:07 | XMS_ITS | Encounter Summary ---
Author Organization [facility] [place] [address] Care Team Providers Care Bunker Worker Name Role Phone Patricio Gabriel MD Primary Care Provider Encounter Details Date Type Department Care Team (Latest Contact Info) Description 12/29/2023 Travel Social History Tobacco Use Types Packs/Day [...] on file documented as of this encounter Visit Diagnoses Not on filedocumented in this encounter Care Teams Bunker Worker Relationship Specialty Start Date End Date Patricio Gabriel MD [address] [id number] PCP - General 02/20/10 documented as of this encounter
--- OUTSIDE RECORDS SUMMARY | 2024-04-12 14:07 | XMS_ITS | Encounter Summary ---
Author Organization [facility] Address [facility] [place] [address] Care Team Providers Care Energy Manager Name Role Phone Patricio Gabriel MD Primary Care Provider Encounter Details Date Type Department Care Team (Late st Contact Info) Description 09/24/2023 11:00 AM EDT Office Visit [place] [address] Teri Marquez APRN [facility] [place] [address] Proteinuria, unspecified type; Other proteinuria; CKD (chronic kidney disease) stage 2, GFR 60-89 ml/min; Type 2 diabetes mellitus with diabetic microalbuminuria, without long-term current use of insulin Social History Tobacco Use Types Packs/Day Years [...] Sign Reading Time Taken Comments Blood Pressure 135/64 09/24/2023 10:14 AM EDT Pulse 60 09/24/2023 10:14 AM EDT Temperature - - Respiratory Rate - - Oxygen Saturation - - Inhaled Oxygen Concentration - - Weight 68 kg (150 lb) 09/24/2023 10:14 AM EDT Height 165.1 cm (5' 5) 09/24/2023 10:14 AM EDT Body Mass Index 24.96 09/24/2023 10:14 AM EDT documented in this encounter Progress Notes * Teri Marquez APRN - 09/24/2023 11:00 AM EDTSumjose alfredoy: CKD progress note Images from the original note were not included. Nephrology/Hypertension Clinic Follow-up Note [id number] ID: 73 y.o.year-old female being seen for follow up of CKD stage 2 with proteinuria, PMH of HTN andDM. S: Interim history - Patient was last seen by nephrology on 02/13/2023 with Rosy Borjas APRN and Dr. Gallardo for the evaluation of proteinuria. No hospitalizations, surgeries, or new diagnoses since last visit. Since last visit things have been going good since last visit. Energy level- back problems limit activity. Sleep- no issues. Napping- every once in a while. Lightheadedness or dizziness- No. Headaches- no. SOB-no. Chest pain/pressure- no. Appetite- no. Hydration- should drink more water. N/V/D- no.No changes in urination. Voiding several times a day. Nocturia- sometimes. Bloody or foamy urine- no. Dysuria- no. Able to empty bladder- no. Muscle/joint pain- no. Muscle cramps or restless legs- no. Unusual bleeding or bruising- no. Swelling- usually on the right leg from back surgery. Mood and memory-no. Thinking clearly. Use of NSAIDs- does not use, will take tylenol, if needed. Home BP- 130-135 SBP Home BS- GFR Trend Over Time: Lab Results Component Value Date ESTGFR 68 09/24/2023 ESTGFR 61 02/13/2023 ESTGFR 87 05/10/2021 ESTGFR 84 05/09/2021 ESTGFR 70 05/08/2021 ESTGFR 70 05/07/2021 ESTGFR >60 09/17/2013 ESTGFR >60 09/15/2013 ESTGFR 59 (L) 08/11/2013 ESTGFR >60 07/23/2013 Past Medical History: Patient Active Problem List Diagnosis Code Chronic leg pain M79.606, G89.29 Chronic low back pain M54.50, G89.29 Right lumbar radiculopathy with L4-L5 HNP M54.16 Thoracic or lumbosacral neuritis or radiculitis, unspecified [id number] S/P Revision Right L4-S1 decompression, Right L4-5 diskectomy - 09/14/13 (Evonne) Z98.890 Atrial fibrillation with RVR I48.91 Radiculopathy of lumbar region M54.16 Back pain M54.9 Other proteinuria R80.8 Outpatient Encounter Medications as of 09/24/2023 Medication Sig Dispense Refill estradioL (ESTRACE) 0.5 mg Tablet TAKE 1 TABLET BY MOUTH ONCE DAILY glipiZIDE XL (Glucotrol XL) 2.5 mg Tablet Extended Rel 24 hr Take 2.5 mg by mouth daily. metFORMIN (Glucophage) 850 mg Tablet TAKE 1 TABLET BY MOUTH ONCE DAILY rosuvastatin (Crestor) 10 mg Tablet TAKE 1 TABLET BY MOUTH ONCE DAILY AT NIGHT atenolol (TENORMIN) 50 mg Tablet Take 50 mg by mouth daily. lisinopril (PRINIVIL;ZESTRIL) 20 mg Tablet TAKE ONE TABLET BY MOUTH EVERY DAY NEEDS ANNUAL EXAM 4 gabapentin (NEURONTIN) 300 mg capsule Take 1 capsule by mouth 3 times daily. Begin with 1 cap at HSX 3 days, then 1 cap Q AM and HS X 3 day, then 1 cap TID. 90 capsule 1 acetaminophen (TYLENOL) 500 mg tablet Take 2 tablets by mouth every 8 hours. 30 tablet 1 [DISCONTINUED] cyclobenzaprine (Flexeril) 10 mg Tablet Take 1 tablet by mouth 3 times daily as needed for Muscle spasms. (Patient not taking: Reported on 09/24/2023) 30 tablet 0 pantoprazole (PROTONIX) 40 mg Tablet, Delayed Release (E.C.) No facility-administered encounter medications on file as of 09/24/2023. Allergies Allergen Reactions Meperidine Hcl Anaphylaxis Prochlorperazine CIS - JITTERY Simvastatin Other Reaction(s): Other O: Vitals: 09/24/23 1014 BP: 135/64 Pulse: 60 Weight: 68 kg (150 lb) Height: 165.1 cm (5' 5) General: Arrived ambulatory. Alert, comfortable. Cooperative with exam. HEENT: Sclera white. Mucous membranes moist. CV: S1 and S2. HR regular. JVP not elevated. Resp: Lungs clear with no crackles or wheezes. Respirations non labored. Abd: Soft. + BS. No bruit. Non tender. : No CVA tenderness. Ext: Warm. No cyanosis. No edema. Skin: No rash. Neuro: Intact. Psych: Mood appropriate. Pleasant. Labs: Recent Results (from the past 72 hour(s)) Basic Metabolic Panel (non-fasting) Result Value Ref Range Glucose Lvl 218 (H) 65 - 199 mg/dL BUN 14 8 - 18 mg/dL Creatinine 0.90 0.70 - 1.20 mg/dL Sodium 140 135 - 145 mmol/L Potassium 3.9 3.5 - 5.0 mmol/L Chloride 103 98 - 107 mmol/L CO2 26 22 - 31 mmol/L Anion Gap 11 5 - 15 mmol/L Calcium 8.9 8.5 - 10.5 mg/dL Estimated GFR 68 >=60 mL/min/1.73 m?? Hemogram Result Value Ref Range WBC 9.1 4.0 - 9.5 x10(3)/mcL RBC 4.20 4.00 - 5.21 x10(6)/mcL Hemoglobin 13.6 11.7 - 15.5 g/dL Hematocrit 41.3 35.7 - 45.8 % MCV 98.3 (H) 82.6 - 94.4 fL MCH 32.4 (H) 27.1 - 32.0 pg MCHC 32.9 31.7 - 35.0 g/dL Platelets 209 145 - 357 x10(3)/mcL RDWSD 45.1 37.0 - 46.0 fL RDWCV 12.6 11.5 - 14.1 % MPV 10.3 7.6 - 12.9 fL nRBC % Auto 0.0 % nRBC Abs Auto 0.000 0.000 - 0.000 x10(3)/mcL Differential, Automated Result Value Ref Range Neutrophils % 65.2 % Neutr Abs (ANC) 5.92 1.70 - 6.10 x10(3)/mcL Lymphocytes % 24.4 % Lymphocytes Abs 2.2 0.9 - 3.2 x10(3)/mcL Monocytes % 7.7 % Monocyte Abs 0.7 0.3 - 0.9 x10(3)/mcL Eosinophils % 1.9 % Eosinophils Abs 0.2 0.0 - 0.4 x10(3)/mcL Basophils % 0.4 % Basophils Abs 0.0 0.0 - 0.1 x10(3)/mcL Immature Gran % 0.40 % Denise Gran Abs 0.04 0.00 - 0.04 x10(3)/mcL Protein/Creatinine Ratio, urine Result Value Ref Range U Creatinine 57 mg/dL U Protein Ran 46 (H) 0 - 12 mg/dL Prot/Cre Ratio 0.8 ratio A/P: 73 y.o.year-old female seen for follow up for CKD stage 2 with proteinuria, PMH of HTN and DM. CKD Stage 2. eGFR today is 68 and stable. Risk factors for worsening renal function reviewed. Discussed importance of good blood pressure control, good blood sugar control, adequate hydration, and avoidance of NSAIDs. 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 HTN - BP appears to be adequately controlled based on BP reading in clinic today. Continue current management. Currently taking lisinopril 20mg daily and atenolol 50mg daily. Urine PCR today is 0.8, appropriately on an ACEi. Diabetes - Last A1C, by pt report was 7.6 (Goal <7). DM being managed with Glipizide and Metformin at this time. Recently started Farxiga at the same time as another medication for an essential tremor. She experienced lightheadedness and low energy and stopped them both about 3 weeks ago. Yesi is willing to restart Farxiga to see if this can be tolerated. Advised her to increase her fluid intake as this medication can lead to increased urine output and this may lead to some lightheadedness if she becomes volume depleted. Will follow-up with PCP for refills and DM management. Anemia - HGB 13.6 without anemia related to chronic disease. Iron stores not assessed today. No indication for an TRIXIE at this time. KDIGO Hgb goal in CKD is 10.0-11.5g/dL. Ferritin >100ng/dl, TSAT >20% Bone and mineral - Calcium, phosphorus and PTH within goal. KDIGO PTH goals in CKD: PTH < 150pg/ml Acid-base - Metabolic acidosis is not present. Electrolytes - Potassium and sodium are in range. Nutrition - Normal albumin suggests adequate protein intake. Transplant/access referral - Not indicated. Return to clinic - Will return in approximately 1 year for follow-up. Patient encouraged to reach out with any questions or concerns. >the total time spent [id number] AND total time the provider spent counseling was 30 minutes. Teri Marquez APRN Hypertension-Nephrology Pager # [phone] CC: Patricio Gabriel MD @[email or web address]@ documented in this encounter Plan of Treatment Not on file documented as of this encounter Results * (ABNORMAL) Protein/Creatinine Ratio, urine (09/24/2023 9:34 AM EDT) Creatinine, Urine 57 mg/dL [facility] Protein, Urine 46(H) 0 - 12 mg/dL [facility] Protein / Creatinine Ratio, Urine 0.8 ratio [facility] Urine 09/24/2023 9:34 AM EDT 09/24/2023 9:37 AM EDT Narrative Resulting Agency Comment Spec In Lab Teri Marquez APRN URINE ORDERABLE S [facility] [place] [address] * (ABNORMAL) Basic Metabolic Panel (non-fasting) (09/24/2023 9:13 AM EDT) Glucose 218(H) 65 - 199 mg/dL [facility] Comment:Diabetes: >=200 mg/d L plus symptoms Blood Urea Nitrogen 14 8 - 18 mg/dL [facility] Creatinine 0.90 0.70 - 1.20 mg/dL [facility] Sodium 140 135 - 145 mmol/L [facility] Potassium 3.9 3.5 - 5.0 mmol/L [facility] Comment: Please note: ??Patients with WBC >100,000 may have falsely elevated Potassium levels. ??For accurate Potassium quantification in these patients send serum separator tube (gold top) for subsequent determinations. ??Contact the Clinical Chemistry Laboratory if there are any questions. Chloride 103 98 - 107 mmol/L [facility] Carbon Dioxide 26 22 - 31 mmol/L [facility] Anion Gap 11 5 - 15 mmol/L [facility] Calcium 8.9 8.5 - 10.5 mg/dL [facility] Est Glomerular Filtration Rate 68 >=60 mL/min/1. 73 m?? [facility] Comment: This patient's estimated GFR was [...] Comment Spec In Lab Teri Marquez APRN CHEMISTRY ORDER IZZY [facility] [place] [address] documented in this encounter Visit Diagnoses Diagnosis Proteinuria, unspecified type CKD (chronic kidney disease) stage 2, GFR 60-89 ml/min Chronic kidney disease, Stage II (mild) Type 2 diabetes mellitus with diabetic microalbuminuria, without long-term current use of insulin documented in this encounter Care Teams Energy Manager Relationship Specialty Start Date End Date Patricio Gabriel MD [address] [place] [phone] PCP - General 02/20/10 documented as of this encounter
--- OUTSIDE RECORDS SUMMARY | 2024-04-12 14:07 | XMS_ITS | Clinical Summary ---
Author Organization [facility] Address [facility] [place] [address] Care Team Providers Care Seed Tester Name Role Phone Patricio Gabriel MD Primary Care Provider Allergies Active Allergy Reactions Criticality Noted Date Comments Meperidine Hcl Anaphylaxis High Prochlorperazine CIS - JITTERY Simvastatin 02/12/2023 Other Reaction(s): Other Medications Medication Sig Dispensed Refills Start Date End Date Status acetaminophen (TYLENOL) 500 mg tablet Take 2 tablets by mouth every 8 hours. 30 tablet 1 09/17/2013 Active gabapentin (NEURONTIN) 300 mg capsule Take 1 capsule by mouth 3 times daily. Begin with 1 cap at HS X 3 days, then 1 cap Q AM and HS X 3 day, then 1 cap TID. 90 capsule 1 10/14/2013 Active atenolol (TENORMIN) 50 mg Tablet Take 50 mg by mouth daily. 10/31/2015 Active lisinopril (PRINIVIL;ZESTRIL) 20 mg Tablet TAKE ONE TABLET BY MOUTH EVERY DAY NEEDS ANNUAL EXAM 4 12/01/2015 Active pantoprazole (PROTONIX) 40 mg Tablet, Delayed Release (E.C.) 10/31/2015 Active estradioL (ESTRACE) 0.5 mg Tablet TAKE 1 TABLET BY MOUTH ONCE DAILY 03/27/2021 Active glipiZIDE XL (Glucotrol XL) 2.5 mg Tablet Extended Rel 24 hr Take 2.5 mg by mouth daily. 01/09/2021 Active metFORMIN (Glucophage) 850 mg Tablet TAKE 1 TABLET BY MOUTH ONCE DAILY 05/13/2021 Active rosuvastatin (Crestor) 10 mg Tablet TAKE 1 TABLET BY MOUTH ONCE DAILY AT NIGHT 05/21/2021 Active Active Problems Problem Noted Date Diagnosed Date CKD (chronic kidney disease) stage 2, GFR 60-89 ml/min 09/24/2023 Diabetes mellitus 09/24/2023 Other proteinuria 02/21/2023 Back pain 05/07/2021 Radiculopathy of lumbar region 02/16/2016 S/P Revision Right L4-S1 dec ompression, Right L4-5 diskectomy - 09/14/13 (Evonne) 09/17/2013 Atrial fibrillation with RVR 09/17/2013 Thoracic or lumbosacral neur itis or radiculitis, unspecified 07/29/2013 Chronic leg pain 07/20/2013 Chronic low back pain 07/20/2013 Right lumbar radiculopathy with L4-L5 HNP 2013 Immunizations Name Administration Dates Next Due Influenza (Novel [id number]) Injectable 01/29/2009 Influenza Vaccine, Whole 01/29/2009 Social History Tobacco Use Types Packs/Day Years Used Date Smoking Tobacco: Former Cigarettes Q uit: 05/29/2013 Smokeless Tobacco: Never Alcohol Use Standard Drinks/Week Comments Not Currently 0 (1 standard drink = 0.6 oz pur e alcohol) Sex and Gender Information Value Date Recorded Sex Assigned at Not on file Gender Identity Not on file Sexual Orientation Not on file Last Filed Vital Signs Vital Sign Reading Time Taken Comments Blood Pressure 135/64 09/24/2023 10:14 AM EDT Pulse 60 09/24/2023 10:14 AM EDT Temperature 35.8 ??C (96.4 ??F) 02/01/2022 8:44 AM ED T Respiratory Rate 16 02/01/2022 8:44 AM EDT Oxygen Saturation 97% 02/13/2023 11:17 AM EST Inhaled Oxygen Concentration - - Weight 68 kg (150 lb) 09/24/2023 10:14 AM EDT Height 165.1 cm (5' 5) 09/24/2023 10:14 AM EDT Body Mass Index 24.96 09/24/2023 10:14 AM EDT Plan of Treatment Health Maintenance Due Date Last Done Comments CT Colonography 1950 Colonoscopy 1950 Colorectal Cancer Screening 1950 FIT DNA 1950 FIT 1950 Sigmoidoscopy (10 year) with FIT yearly 1950 Sigmoidoscopy 1950 DM Hemoglobin A1c 1960 DM Opthalmology Exam 1960 DM Urine Microalbumin yearly 1960 Hepatitis C Screening 1968 Pneumoccocal Vaccine: 65+ (1 of 2 - PCV) 1969 Tetanus/Diphtheria/Pertussis Vaccines (1 - Tdap) 1969 Breast Cancer Share Decision Needed 1990 Breast Cancer screening 1990 Zoster vaccine (1 of 2) 2000 Advance Directive 2005 Bone Density Scan 2015 Covid-19 Vaccine (1 - 2023-2 5 season) 2023 Influenza (Flu) vaccine (1 o f 1 - Influenza standard series) 11/30/2023 01/29/2009, 01/29/2009 DM Creatinine yearly 09/23/2024 09/24/2023, 02/13/2023, 05/10/2021, Additional history exists Medical Devices Implanted Type Area Correspondence Renew Clerk Device Identifier Shelf Expiration Date Model / Serial / Lot Barrier,Durag en,Plus,1inx3 in ([id number]) - [id number] Implanted:Qty : 1 on 09/14/2013 by Tawanda Douglass MD at [facility] IMPLANTS Right: Spine Lumbar DO NOT USE [employer], - [id number] 10/29/2015 [id number] / / [id number] Seala,Dura,Sp ine,Ext,5ml ([id number]) - [id number] Implanted:Qty : 1 on 09/14/2013 by Tawanda Douglass MD at [facility] IMPLANTS Right: Spine Lumbar Covidien - [id number] 07/28/2014 [id number] / / [id number] Procedures Procedure Name Priority Date/Time Associated Diagnosis Comments BASIC METABOLIC PANEL Routine 09/24/2023 9:13 AM EDT Proteinuria, unspecified type from Last 3 Months or Most Recently Relevant to Health Maintenance Results * (ABNORMAL) Basic Metabolic Panel (non-fasting) (09/24/2023 9:13 AM EDT) Glucose 218(H) 65 - 199 mg/dL [facility] Comment:Diabetes: >=200 mg/d L plus symptoms Blood Urea Nitrogen 14 8 - 18 mg/dL [facility] Creatinine 0.90 0.70 - 1.20 mg/dL [facility] Sodium 140 135 - 145 mmol/L [facility] Potassium 3.9 3.5 - 5.0 mmol/L [facility] Comment: Please note: ??Patients with WBC >100,000 may have falsely elevated Potassium levels. ??For accurate Potassium quantification in these patients send serum separator tube (gold top) for subsequent determinations. ??Contact the Clinical Chemistry Laboratory if there are any questions. Chloride 103 98 - 107 mmol/L [facility] Carbon Dioxide 26 22 - 31 mmol/L [facility] Anion Gap 11 5 - 15 mmol/L [facility] Calcium 8.9 8.5 - 10.5 mg/dL [facility] Est Glomerular Filtration Rate 68 >=60 mL/min/1. 73 m?? [facility] Comment: This patient's estimated GFR [...] Lab Teri Marquez APRN CHEMISTRY ORDER IZZY [facility] [place] [address] from Last 3 Months or Most Recently Relevant to Health Maintenance Advance Directives * Attempt Cardiopulmonary Resuscitation - Inpatient (Latest Code Status on File) Date Activated Date Inactivated Comments 05/07/2021 4:20 PM 05/10/2021 5:49 PM Question Answer Comments Code Status decision made by: Patient * Full Code Date Activated Date Inactivated Comments 09/14/2013 11:02 PM 09/17/2013 5:08 PM Care Teams Seed Tester Relationship Specialty Start Date End Date Patricio Gabriel MD [address] [place] [phone] PCP - General 02/20/10
--- OUTSIDE RECORDS SUMMARY | 2024-04-12 14:07 | XMS_ITS | Encounter Summary ---
Author Organization [facility] [place] [address] Care Team Providers Care Precision Lathe Operator Name Role Phone Patricio Gabriel MD Primary Care Provider [phone] Encounter Details Date Type Department Care Team (Latest Contact Info) Description 09/24/2023 Travel Social History Tobacco Use Types Packs/Day [...] on filedocumented in this encounter Care Teams Precision Lathe Operator Relationship Specialty Start Date End Date Patricio Gabriel MD [address] [phone] PCP - General 02/20/10 documented as of this encounter
--- OUTSIDE RECORDS SUMMARY | 2024-04-12 14:07 | XMS_ITS | Continuity of Care Document ---
Author Organization [facility] Address [address] [place] [address] Care Team Providers Care E Learning Designer Name Role Phone Patricio Zarate Primary Care Physician Encounter NCTY_IA Date(s): 05/22/23 - 05/22/[address] [address] Discharge Disposition: Home or Self Care Attending Physician: Clover Burleson TECHNICAL DATA ANALYST Admitting Physician: Clover Burleson NP Referring Physician: Clover Burleson TECHNICAL DATA ANALYST Allergies, Adverse Reactions, Alerts Substance Reaction Severity Status meperidine Other Unknown Active prochlorperazine Other Unknown Active simvastatin Other Unknown Active Immunizations Given and Recorded Vaccine Date Status Refusal Reason rubella virus vaccine 03/31/00 Recorded varicella virus vaccine 03/31/00 Recorded Medications estradiol 0.5 mg oral tablet 0.5 mg = 1 tab, Oral, Daily, # 90 tab, 3 Refill(s), Pharmacy: [id number] Start Date: 05/27/22 Status: Ordered Procedures Procedure Date Related Diagnosis Body Site Status PAP test date 1 07/30/06 Completed 12-06-2006 07/31/2006 Neg/Neg no further paps; had hyst Social History Social History Type Response Sex Female Pulmonary function study * Rosalva Dejesus: PERFORM Event Display: Pulmonary Function Studies Authored Date: [id number] * Event Display: Pulmonary Function Studies Please click on link to view image. Patient Care team information Care Team Personnel Name: Patricio Zarate MD Position: No Access Member Role: Primary Care Physician Address: Address: [facility] [address] [place], [place] [address] Care Team Related Persons Name: SHAHZADMAYROYA Address: Home [address] [facility], [id number]
--- OUTSIDE RECORDS SUMMARY | 2024-04-12 14:08 | XMS_ITS | Encounter Summary ---
Author Organization [facility] [place] [address] Care Team Providers Care Translator Name Role Phone Patricio Gabriel MD Primary Care Provider Encounter Details Date Type Department Care Team (Latest Contact Info) Description 02/01/2022 9:00 AM EDT Office [place] [address] Nancy Fountain MD [facility] [place] [address] Radiculopathy of lumbar region Social History Tobacco Use Types Packs/Day Years [...] Sign Reading Time Taken Comments Blood Pressure 143/83 02/01/2022 8:44 AM EDT Pulse 54 02/01/2022 8:44 AM EDT Temperature 35.8 ??C (96.4 ??F) 02/01/2022 8:44 AM ED T Respiratory Rate 16 02/01/2022 8:44 AM EDT Oxygen Saturation 98% 02/01/2022 8:44 AM EDT Inhaled Oxygen Concentration - - Weight 67.9 kg (149 lb 9.6 oz) 02/01/2022 8:44 A M EDT Height 165.1 cm (5' 5) 02/01/2022 8:44 AM EDT Body Mass Index 24.89 02/01/2022 8:44 AM EDT documented in this encounter Progress Notes * Nancy Fountain MD - 02/01/2022 9:00 AM EDT It was a pleasure to see Yesi Estrella years in follow-up today. ?? Ms. Estrella is a 71-year-old woman whom I am following for lumbar radiculopathy in the setting ofa recurrent herniated disc. I performed a redo L5 laminectomy with microdiscectomy of the right L5-S1 disc herniation on May 08, 2021, after she had presented to the emergency department with excruciating right lower extremity pain. She returns for 9 month post-op follow-up. She relates that her right leg numbness has not changed since post-op. She continues to have numbness down the lateral aspect of her leg, and into the sole and dorsum of her foot. She finds this irritating. She has been able to walk without a cane, but hasto be careful of not tripping. She continues to experience relief from right leg pain. I think at this point, she is unlikely to have further spontaneous improvement of her leg numbness.I have recommended that we focus on symptom control, including increasing her gabapentin or adding duloxetine/amytriptyline to her regime. A topical capsacin cream can also be helpful for neuropathy.She will try this at home under the direction of her PCP. I would be happy to see her on an as needed basis moving forward. Plan: 1. Follow-up as needed. documented in this encounter Plan of Treatment Not on file documented as of this encounter Visit Diagnoses Diagnosis Radiculopathy of lumbar region Thoracic or lumbosacral neuritis or radiculitis, unspecified documented in this encounter Care Teams Translator Relationship Specialty Start Date End Date Patricio Gabriel MD [address] [place] [id number] PCP - General 02/20/10 documented as of this encounter
--- OUTSIDE RECORDS SUMMARY | 2024-04-12 14:08 | XMS_ITS | Encounter Summary ---
Author Organization [facility] [place] [address] Care Team Providers Care Polysomnographic Technologist Name Role Phone Patricio Gabriel MD Primary Care Provider Encounter Details Date Type Department Care Team (Late st Contact Info) Description 05/22/2021 Orders Only Neurosurgery at [facility] [place] [address] Cain Kelley PA [facility] [place] [address] [place] [address] Social History Tobacco Use Types Packs/Day Years Used Date Smoking Tobacco: Former Cigarettes Q uit: 05/29/2013 Smokeless Tobacco: Never Alcohol Use Standard Drinks/Week Comments Yes 0 [...] on filedocumented in this encounter Care Teams Polysomnographic Technologist Relationship Specialty Start Date End Date Patricio Gabriel MD [address] [place] [phone] PCP - General 02/20/10 documented as of this encounter
--- OUTSIDE RECORDS SUMMARY | 2024-04-12 14:08 | XMS_ITS | Encounter Summary ---
Author Organization [facility] Address [facility] [place] [address] Care Team Providers Care Bindery Chief Name Role Phone Patricio Gabriel MD Primary Care Provider Encounter Details Date Type Department Care Team (Latest Contact Info) Description 01/18/2016 1:58 PM EDT - 01/18/2016 11:59 PM EDT Hospital Encounter XRay at [address] [place] [address] Tawanda Douglass MD [facility] [place] [address] Lumbar stenosis Discharge Disposition: Home Social History Tobacco Use Types Packs/Day Years Used Date Smoking Tobacco: Former Cigarettes Q uit: 05/29/2013 Smokeless Tobacco: Never Sex and Gender Information Value Date Recorded Sex Assigned at Not on file Gender Identity Not on file Sexual Orientation Not on file documented as of this encounter Medications at Time of Discharge Medication Sig Dispensed Refills Start Date End Date pantoprazole (PROTONIX) 40 mg Tablet, Delayed Release (E.C.) 10/31/2015 atenolol (TENORMIN) 50 mg Tablet Take 50 mg by mouth daily. 10/31/2015 lisinopril (PRINIVIL;ZESTRIL) 20 mg Tablet TAKE ONE TABLET BY MOUTH EVERY DAY NEEDS ANNUAL EXAM 4 12/01/2015 gabapentin (NEURONTIN) 300 mg capsule Take 1 capsule by mouth 3 times daily. Begin with 1 cap at HS X 3 days, then 1 cap Q AM and HS X 3 day, then 1 cap TID. 90 capsule 1 10/14/2013 acetaminophen (TYLENOL) 500 mg tablet Take 2 tablets by mouth every 8 hours. 30 tablet 1 09/17/2013 traMADol (ULTRAM) 50 mg Tablet TAKE ONE TABLET BY MOUTH THREE TIMES A DAY NEEDED 5 12/20/2015 05/10/2021 documented as of this encounter Plan of Treatment Not on file documented as of this encounter Procedures Procedure Name Priority Date/Time Associated Diagnosis Comments XR LUMBAR SPINE 2 OR 3 VIEWS Routine 01/18/2016 2:14 PM EDT Lumbar stenosis documented in this encounter Results * XR Lumbar Spine 2 Or 3 Views (Generic) (01/18/2016 2:14 PM EDT) Anatomical Region Laterality Modality L-spine N/A Digital Radiogra phy Impressions 01/18/2016 3:34 PM EDT 1. ??Postsurgical changes consistent with prior L4-5 laminectomies. 2. ??No dynamic instability. I have personally reviewed the image(s) and the residents interpretation and agree with the findings, Lucille Arora at 01/18/2016 3:34 PM Narrative 01/18/2016 3:34 PM EDT EXAMINATION: XR LUMBAR SPINE 2 OR 3 VIEWS (GENERIC) CLINICAL HISTORY: AP lat flex/ext 3 views to eval lumbar spinal stenosis TECHNIQUE: AP and lateral flexion-extension views of the lumbar spine. COMPARISON: Lumbar spine radiographs dated 10/21/2013, and 05/16/2013. Lumbar spine MRI dated 01/02/2016. FINDINGS: Postsurgical changes consistent with prior L4-L5 laminectomies. No evidence of dynamic instability. Unchanged disc degenerative changes which are most prominent at L2-L3, and L4-5. Unchanged marked bilateral facet arthropathy at L3-S1. Procedure Note Lucille Arora MD - 01/18/2016 EXAMINATION: XR LUMBAR SPINE 2 OR 3 VIEWS (GENERIC) CLINICAL HISTORY: AP lat flex/ext 3 views to eval lumbar spinal stenosis TECHNIQUE: AP and lateral flexion-extension views of the lumbar spine. COMPARISON: Lumbar spine radiographs dated 10/21/2013, and 05/16/2013.Lumbar spine MRI dated 01/02/2016. FINDINGS: Postsurgical changes consistent with prior L4-L5 laminectomies. Noevidence of dynamic instability. Unchanged disc degenerative changes which are most prominent at L2-L3, and L4-5. Unchanged marked bilateral facet arthropathyat L3-S1. IMPRESSION 1. Postsurgical changes consistent with prior L4-5 laminectomies. 2. No dynamic instability. I have personally reviewed the image(s) and the residents interpretationand agree with the findings, Lucille Arora at 01/18/2016 3:34 PM Tawanda Douglass MD IMG DX ORDERABLES documented in this encounter Visit Diagnoses Diagnosis Lumbar stenosis Spinal stenosis, lumbar region, without neurogenic claudication documented in this encounter Care Teams Bindery Chief Relationship Specialty Start Date End Date Patricio Gabriel MD [address] [place] [id number] PCP - General 02/20/10 documented as of this encounter
--- OUTSIDE RECORDS SUMMARY | 2024-04-12 14:08 | XMS_ITS | Encounter Summary ---
Author [facility] [place] [address] Care Team Providers Care Dispensing Optician Apprentice Name Role Phone Patricio Gabriel MD Primary Care Provider [phone] Reason for Visit * Reason Onset Date Comments Post Hospital Discharge 05/14/2021 Encounter Details Date Type Department Care Team (Late st Contact Info) Description 05/14/2021 Telephone [place] [address] Robyn Cochran RN Post Hospital Discharge Social History Tobacco Use Types Packs/Day Years [...] documented as of this encounter Miscellaneous Notes * Telephone Encounter - Robyn Cochran RN - 05/14/2021 11:19 AM EST Yesi Estrella 1950 71 y.o. [id number] F/U call s/p L5-S1 hemilaminectomy and micro discectomy on 05/08/[address] Fountain Date of discharge: 05/10/21 Date of call: 05/14/21 Neuro: alert and oriented: yes Dizzy or lightheaded: denies Numbness/tingling/weakness: numbness in knee to foot unchanged Ambulation: ambulating in home every hour with a walker Incision: looks good [place] to be removed by [facility] Pain: leg [...] on filedocumented in this encounter Care Teams Dispensing Optician Apprentice Relationship Specialty Start Date End Date Patricio Gabriel MD [address] [place] [id number] PCP - General 02/20/10 documented as of this encounter
--- OUTSIDE RECORDS SUMMARY | 2024-04-12 14:08 | XMS_ITS | Encounter Summary ---
Author Organization [facility] [place] [address] Care Team Providers Care Molder Pipe Covering Name Role Phone Patricio Gabriel MD Primary Care Provider [phone] Encounter Details Date Type Department Care Team (Latest Contact Info) Description 02/13/2023 2:25 PM EST Laboratory Appointment Lab 3L [facility] [place] [phone] Proteinuria, unspecified type Social History Tobacco Use [...] Procedure Name Priority Date/Time Associated Diagnosis Comments HC URINALYSIS ROUTINE Routine 02/13/2023 1:12 PM EST Proteinuria, unspecified type PTH Routine 02/13/2023 1:09 PM EST Proteinuria, unspecified type HEMOGRAM Routine 02/13/2023 1:09 PM EST Proteinuria, unspecified type DIFFERENTIAL, AUTOMATED Routine 02/13/2023 1:09 PM EST Proteinuria, unspecified type CBC (WITH DIFF) Routine 02/13/2023 1:09 PM EST Proteinuria, unspecified type PHOSPHORUS Routine 02/13/2023 1:09 PM EST Proteinuria, unspecified type ALBUMIN LEVEL Routine 02/13/2023 1:09 PM EST Proteinuria, unspecified type BASIC METABOLIC PANEL Routine 02/13/2023 1:09 PM EST Proteinuria, unspecified type documented in this encounter Results * (ABNORMAL) _Urinalysis with microscopic (02/13/2023 1:12 PM EST) Glucose, Urine Dipstick Negative Negative mg/dL [facility] Protein, Urine Dipstick >=300(A) Negative mg/dL [facility] Bilirubin, Urine Dipstick Negative Negative mg/dL [facility] Comment: Clinical correlation required for positive Urine Bilirubin results as false positive may occur with some drugs and drug related products. If a false positive is suspected a serum total bilirubin should be considered if clinically indicated. Urobilinogen, Urine Dipstick Normal Normal mg/dL [facility] pH, Urn (dipstick) 6.0 5.0 - 8.0 [facility] Blood, Urine Dipstick Large(A) Negative mg/dL [facility] Ketone, Urine Dipstick Trace(A) Negative mg/dL [facility] Nitrite, Urine Dipstick Negative Negative [facility] Leukocytes, Urine Dipstick Trace(A) Negative mcL [facility] Appearance, Urine Dipstick Cloudy(A) Clear [facility] Specific [place] Urine Automated 1.022 1.005 - 1.030 [facility] Color, Urine Dipstick Yellow Yellow [facility] RBC, Urine 37(H) 0 - 4 /HPF [facility] WBC, Urine 6(H) 0 - 5 /HPF [facility] Bacteria, Urine Many(A) None /HPF [facility] Squamous Epithelial Cells Raw Data, Urine 7(H) <=4 /HPF [facility] Hyaline Casts, Urine 11(H) 0 - 2 /LPF [facility] Urine 02/13/2023 1:12 PM EST 02/13/2023 1:20 PM EST Narrative Resulting Agency Comment Spec In Lab Rosy Borjas ESTHETICIAN FACIALIST URINE ORDERABLES Performing Organization Address City/[facility]/ZIP Co de Phone Number [facility] [place] [address] * (ABNORMAL) Differential, Automated (02/13/2023 1:09 PM EST) Neutrophil % 53.4 % [facility] Neutrophil Absolute 5.14 1.70 - 6.10 x10(3)/mc L [facility] Lymph % 34.0 % [facility] Lymphocytes Abs 3.3(H) 0.9 - 3.2 x10(3)/mc L [facility] Monocyte % 9.3 % [facility] Monocyte Abs 0.9 0.3 - 0.9 x10(3)/ L [facility] Eos % 2.7 % [facility] Eosinophils Abs 0.3 0.0 - 0.4 x10(3)/[facility] Basophil % 0.4 % [facility] Baso Absolute 0.0 0.0 - 0.1 x10(3)/ L [facility] Immature Gran % 0.20 % [facility] Comment: Immature granulocytes(IG's)percentage and absolute count will include metamyelocytes, myelocytes, and promyelocytes. Blood smears from CBCs yielding IG's will be scanned manually for concordance. If this scan disagrees with the automated IG or if promyelocytes are noted, a manual differential will be performed. Immature Gran Absolute 0.02 0.00 - 0.04 x10(3)/ L [facility] Blood 02/13/2023 1:09 PM EST 02/13/2023 1:14 PM EST Narrative Resulting Agency Comment Spec In Lab Rosy Borjas ESTHETICIAN FACIALIST HEMATOLOGY ORDERA BLES Performing Organization Address City/[facility]/ZIP Co de Phone Number [facility] [address] * (ABNORMAL) Hemogram (02/13/2023 1:09 PM EST) White Blood Cell 9.6(H) 4.0 - 9.5 x10(3)/mc L [facility] Red Blood Cell 4.58 4.00 - 5.21 x10(6)/mc L [facility] Hemoglobin 14.8 11.7 - 15.5 g/dL [facility] Hematocrit 43.5 35.7 - 45.8 % [facility] Mean Cell Volume 95.0(H) 82.6 - 94.4 fL [facility] Mean Cell Hemoglobin 32.3(H) 27.1 - 32.0 pg [facility] Mean Cell Hemoglobin Concentration 34.0 31.7 - 35.0 g/dL [facility] Platelet 255 145 - 357 x10(3)/mc L [facility] RDW Standard Deviation 43.1 37.0 - 46.0 fL [facility] RDW coefficient of variation 12.3 11.5 - 14.1 % [facility] Mean Platelet Volume 10.4 7.6 - 12.9 fL [facility] NRBC% auto 0.0 % [facility] NRBC Absolute 0.000 0.000 - 0.000 x10(3)/ L [facility] Blood 02/13/2023 1:09 PM EST 02/13/2023 1:14 PM EST Narrative Resulting Agency Comment Spec In Lab Rosy L Indio ESTHETICIAN FACIALIST HEMATOLOGY ORDERA BLES [facility] [address] * Albumin Level (02/13/2023 1:09 PM EST) Albumin 4.3 3.2 - 5.2 g/dL [facility] Blood 02/13/2023 1:09 PM EST 02/13/2023 1:14 PM EST Narrative Resulting Agency Comment Spec In Lab Rosy L Indio ESTHETICIAN FACIALIST CHEMISTRY ORDERAB LES [facility] [address] * Basic Metabolic Panel (non-fasting) (02/13/2023 1:09 PM EST) Glucose 92 65 - 199 mg/dL [facility] Comment:Diabetes: >=200 mg/d L plus symptoms Blood Urea Nitrogen 18 8 - 18 mg/dL [facility] Creatinine 0.98 0.70 - 1.20 mg/dL [facility] Sodium 143 135 - 145 mmol/L [facility] Potassium 4.6 3.5 - 5.0 mmol/L [facility] Comment: Please note: ??Patients with WBC >100,000 may have falsely elevated Potassium levels. ??For accurate Potassium quantification in these patients send serum separator tube (gold top) for subsequent determinations. ??Contact the Clinical Chemistry Laboratory if there are any questions. Chloride 106 98 - 107 mmol/L [facility] Carbon Dioxide 29 22 - 31 mmol/L [facility] Anion Gap 8 5 - 15 mmol/L [facility] Calcium 9.6 8.5 - 10.5 mg/dL [facility] Est Glomerular Filtration Rate 61 >=60 mL/min/1. 73 m?? [facility] Comment: This patient's estimated GFR was [...] and symptoms in addition to eGFR. Blood 02/13/2023 1:09 PM EST 02/13/2023 1:14 PM EST Narrative Resulting Agency Comment Spec In Lab Rosy Borjas ESTHETICIAN FACIALIST CHEMISTRY ORDERAB LES [facility] [place] [address] * Phosphorus (02/13/2023 1:09 PM EST) Phosphorus 3.0 2.5 - 4.5 mg/dL [facility] Blood 02/13/2023 1:09 PM EST 02/13/2023 1:14 PM EST Narrative Resulting Agency Comment Spec In Lab Rosy L Indio ESTHETICIAN FACIALIST CHEMISTRY ORDERAB LES Performing Organization Address City/[facility] Co de Phone Number [facility] [place] [address] * PTH (02/13/2023 1:09 PM EST) Parathyroid Hormone 48 15 - 65 pg/mL [facility] Blood 02/13/2023 1:09 PM EST 02/13/2023 1:14 PM EST Narrative Resulting Agency Comment Spec In Lab Rosy L Indio ESTHETICIAN FACIALIST CHEMISTRY ORDERAB LES Performing Organization Address [facility] Co de Phone Number [facility] [place] [address] documented in this encounter Visit Diagnoses Diagnosis Proteinuria, unspecified type documented in this encounter Care Teams Molder Pipe Covering Relationship Specialty Start Date End Date Patricio Gabriel MD [address] [place] [id number] PCP - General 02/20/10 documented as of this encounter
--- OUTSIDE RECORDS SUMMARY | 2024-04-12 14:08 | XMS_ITS | Encounter Summary ---
Author Organization [facility] [place] [address] Care Team Providers Care Enterprise Systems Manager Name Role Phone Patricio Gabriel MD Primary Care Provider [phone] Encounter Details Date Type Department Care Team (Latest Contact Info) Description 02/01/2022 Travel Social History Tobacco Use Types Packs/Day [...] on filedocumented in this encounter Care Teams Enterprise Systems Manager Relationship Specialty Start Date End Date Patricio Gabriel MD [address] [phone] PCP - General 02/20/10 documented as of this encounter
--- OUTSIDE RECORDS SUMMARY | 2024-04-12 14:08 | XMS_ITS | Encounter Summary ---
Author Organization [facility] [place] [address] Care Team Providers Care Instructor Apparel Manufacture Name Role Phone Patricio Gabriel MD Primary Care Provider Encounter Details Date Type Department Care Team (Late st Contact Info) Description 06/27/2021 [place] [phone] Nancy Fountain MD [facility] [place] [address] Social History Tobacco Use Types Packs/Day Years [...] encounter Miscellaneous Notes * Telephone Encounter - Lexie Dave - 06/27/2021 11:16 AM EDT Patient returning call. Confirms appt 12/28 and asks PT referral to be sent to [facility] in [facility], faxed demo, notes, and referral to [phone] * Telephone Encounter - Bhavna Kimball - 06/27/2021 11:06 AM EDT LM for pt re: PT referral where would pt like it faxed. Also, scheduled 6 mo fu with for 12/28 at 1pm pls let pt know. ~~~~~~~~~~~~~~~~~~~~~~~~~~~~~~~~~~~~~~~~~~~~~~~~~~~~~~ Yesi Estrella - 06/22/21 Nancy Fountain MD Sent: FriJune 22, 2021 ??4:21 PM To: P [facility] Vacuum Pan Operator ?? Message Plan; 1. ??Referral to physical therapy 2. ??Refill for Flexeril 3. ??Follow-up with me in 6 months. Thank you, Allyson documented in this encounter Plan of Treatment Not on file documented as of this encounter Visit Diagnoses Not on filedocumented in this encounter Care Teams Instructor Apparel Manufacture Relationship Specialty Start Date End Date Patricio Gabriel MD [address] [place] [phone] PCP - General 02/20/10 documented as of this encounter
--- OUTSIDE RECORDS SUMMARY | 2024-04-12 14:08 | XMS_ITS | Encounter Summary ---
Author Organization [facility] [place] [address] Care Team Providers Care Clock Maker Name Role Phone Patricio Gabriel MD Primary Care Provider [phone] Reason for Referral * Surgical (Routine) - Specialty Diagnoses / Procedures Referred By Contac t Referred To Contact Diagnoses Radiculopathy of lumbar region Procedures TRANSFORAMINAL INJECTION Ronnie Alvarez MD [facility] [place] [address] Referral ID Status Reason Start Date Expiration Date V isits Requested Visits Authorized [id number] Consult, Test & Treat 02/16/2016 02/15/2017 1 1 Reason for Visit * Reason Comments Back Pain RIGHT SIDE * Consultation (Routine) - Closed Specialty Diagnoses / Procedures Referred By Contac t Referred To Contact Pain Management Diagnoses H/O lumbar discectomy Tawanda Douglass MD [facility] [place] [address] [facility] [address] [place] [address] Referral ID Status Reason Start Date Expiration Date V isits Requested Visits Authorized [id number] Closed Consult Only 01/18/2016 01/17/2017 1 1 Encounter Details Date Type Department Care Team (Latest Contact Info) Description 02/16/2016 11:50 AM EST Procedure [place] [phone] Ronnie Alvarez MD Radiculopathy of lumbar region Social History Tobacco [...] EST documented in this encounter Patient Instructions * Patient Instructions* Tim Hutchins RN - 02/16/2016 11:50 AM EST [...] tubs or pool therapy for 2 days. RemoveBand-Aid(s) later today/tomorrow. Do not drive until tomorrow. Use caution walking/climbing stairs as you may be unsteady on your feet. You may use your usual medications, including pain medications, as directed, unless otherwise instructed. You may use an ice pack as needed for the first 24 hours, on for 20 minutes then off for 20 minutes. Do not apply heat today. Attempt to empty your bladder 4-6 hours after your procedure. You received the following medications: Lidocaine, Omnipaque (contrast dye) and Dexamethasone Sodium Phosphate 10 mg. During regular business hours, please [...] instructions documented in this encounter Progress Notes * Samantha Munoz RN - 02/16/2016 11:50 AM EST Pre-Procedure Screening Questions: 1. Status: No 2. Patient states they have a medical van driver to transport after procedure? Yes 3. Patient taking antibiotics at present? No 4. NPO per [facility] protocol? No 5. Patient diabetic: No Patient routinely taking anticoagulants ? No Patient Vital Signs documented in Doc Flowsheets associated with this encounter. Patient Discharge Instructions were reviewed with patient and copy provided to patient. documented in this encounter Procedure Notes * Ronnie Alvarez MD - 02/16/2016 11:50 AM ESTAssociated Order(s): TRANSFORAMINAL INJECTION Procedure(s): TRANSFORAMINAL INJECTION Pre-Procedure Diagnose(s): Radiculopathy of lumbar region LUMBAR / SACRAL TRANSFORAMINAL INJECTION Date of Service: 02/16/2016 Patient: Yesi Estrella Provider: MD Krissy REYNOSOsandeep Greene Ayleentony has been referred to the [facility] for a transforaminal nerve root block and steroid injection. Dx: right L5 radic Preoperative strength: right L5 5/5 Ms. Estrella was interviewed and the medical record reviewed. There were no medical, pharmacologic, radiographic or other structural contraindications to attempting fluoroscopically [...] blood pressure cuff and pulse oximeter applied. Fluoroscopy was utilized to identify the right neural foramen between L5 and 1 . A skin alirio was made for the needle insertion site. A Chlorhexadine prep was carriedout, and sterile drapes were applied. Local anesthesia was achieved in the skin and subcutaneous tissues. A 22 gauge curved tip spinal needle was then inserted, advanced with fluoroscopic guidance into the neural foramen, confirmed on the lateral view. After negative aspiration, 1 ml of Omnipaque 240 was injected confirming position in A/P and lateral views. [...] discharged in the care of an identified medical van driver. COMMENTS: no complications. Explained tight area in foramen Resident performing procedure: none Attestation: Attestation: I performed this procedure without any resident involvement Ronnie Alvarez MD Attending Physician documented in this encounter Plan of Treatment Not on file documented as of this encounter Procedures Procedure Name Priority Date/Time Associated Diagnosis Comments TRANSFORAMINAL INJECTION Routine 02/16/2016 12:18 PM EST Radiculopathy of lumbar region documented in this encounter Results * TRANSFORAMINAL INJECTION (02/16/2016 12:18 PM EST) Narrative Ronnie Alvarez MD - 02/16/2016 12:18 PM EST Ronnie Alvarez MD ? 02/16/2016 12:18 PM LUMBAR / SACRAL TRANSFORAMINAL INJECTION Date of Service: ??02/16/2016 Patient: ??Yesi Estrella ?? Provider: ??RONNIE ALVAREZ MD Yesi Estrella ??has been referred to the [facility] for a transforaminal nerve root block and steroid injection. ?? Dx: right L5 radic Preoperative strength: right L5 ?08/02 Ms. Estrella was interviewed and the medical record reviewed. ?? There were no medical, pharmacologic, radiographic or other structural contraindications to attempting fluoroscopically guided transforaminal nerve root block and epidural steroid injection. ??Risks and expected side effects as well as potential benefit of the procedure were reviewed withMs. Estrella , and her voiced concerns addressed. ??The printed consent form was signed and witnessed. ??Standard time-out procedure was performed. Ms. Estrella was placed in the prone position on the fluoroscopy table and automated blood pressure cuff and pulse oximeter applied. ??Fluoroscopy was utilized to identify the right neural foramen between L5 and 1 . ??A skin alirio was made for the needle insertion site. ??A Chlorhexadine prep was carried out, and sterile drapes were applied. ??Local anesthesia was achieved in the skin and subcutaneous tissues. ??A 22 gauge curved tip spinal needle was then inserted, advanced with fluoroscopic guidance into the neural foramen, confirmed on the lateral view. ??After negative aspiration, 1 ml of Omnipaque 240 was injected confirming position in A/P and lateral views. Several brief parathesias. After several needle placements, I was able to showed a good spread of dye transforaminally into the epidural space. ??There was no vascular update with contrast injection under continuous fluoroscopy. 10 mg of dexamethasone was injected. There was no unusual discomfort expressed by Ms. Estrella . ??The needle was withdrawn. The patient tolerated the procedure well. ??A Band-Aid was applied. Ms. Estrella's vital signs were stable throughout the procedure and were as recorded in nursing records. ??If given, dosages of intravenous drugs for anxiolysis and analgesia were documented in nursing records. Follow up plans and appointments were discussed with Ms. Vallieres. ??Post procedure instruction was given as documented in nursing records and she was discharged in the care of an identified medical van driver. COMMENTS: no complications. Explained tight area in foramen Resident performing procedure: none Attestation: Attestation: I performed this procedure without any resident involvement Ronnie Alvarez MD Attending Physician Ronnie Alvarez MD PROCEDURE/MINOR SURG ICAL ORDERABLES documented in this encounter Visit Diagnoses Diagnosis Radiculopathy of lumbar region Thoracic or lumbosacral neuritis or radiculitis, unspecified documented in this encounter Administered Medications Inactive Administered Medications - up to 3 most recent administrations Medication Order MAR Action Action Date Dose Rate Site dexamethasone(PF) (DECADRON) 10 mg/mL injection 10 mg 10 mg, Epidural, ONCE, 1 dose, On Fri02/16/16 at 1215, Wasted 2mg, Routine Given 02/16/2016 12:15 PM EST 10 mg iohexol (OMNIPAQUE) 240 mg/mL solution 2 mL 2 mL, Epidural, ONCE, 1 dose, On Fri02/16/16 at 1215, Wasted 48 ml, Routine Given 02/16/2016 12:15 PM EST 2 mLs documented in this encounter Care Teams Clock Maker Relationship Specialty Start Date End Date Patricio Gabriel MD [address] [place] [id number] PCP - General 02/20/10 documented as of this encounter
--- OUTSIDE RECORDS SUMMARY | 2024-04-12 14:08 | XMS_ITS | Encounter Summary ---
Author Organization [facility] [place] [address] Care Team Providers Care Physical Therapy Technician Name Role Phone Patricio Gabriel MD Primary Care Provider Encounter Details Date Type Department Care Team (Latest Contact Info) Description 06/22/2021 Travel Social History Tobacco Use [...] on filedocumented in this encounter Care Teams Physical Therapy Technician Relationship Specialty Start Date End Date Patricio Gabriel MD [address] [phone] PCP - General 02/20/10 documented as of this encounter
--- OUTSIDE RECORDS SUMMARY | 2024-04-12 14:08 | XMS_ITS | Encounter Summary ---
Author Organization [facility] [place] [address] Care Team Providers Care Product Director Name Role Phone Patricio Gabriel MD Primary Care Provider Encounter Details Date Type Department Care Team (Late st Contact Info) Description 02/15/2016 Telephone Pain Management at [facility] [place] [phone] Alyssa Banks, RN Social History Tobacco Use Types Packs/Day Years Used Date Smoking Tobacco: Former Cigarettes Q uit: 05/29/2013 Smokeless Tobacco: Never Sex and Gender Information Value Date Recorded Sex Assigned at Not on file Gender Identity Not on file Sexual Orientation Not on file documented as of this encounter Miscellaneous Notes * Telephone Encounter - Alyssa Banks, MACHINE TURNER - 02/15/2016 12:09 PM EST Yesi Estrella :1950 Message left: I left a message with Her Ms. Estrella at 12:09 PM regarding her upcoming Right transforaminal injection with Dr. Ronnie Alvarez MD. Message included the followin. Patient instructed to arrive at 11:20 (30 minutes prior to procedure start time) on 02-16-16 (date of procedure) with their corrugated fastener driver. 2. Following instructions left in the [...] on filedocumented in this encounter Care Teams Product Director Relationship Specialty Start Date End Date Patricio Gabriel MD [address] [place] [phone] PCP - General 02/20/10 documented as of this encounter
--- OUTSIDE RECORDS SUMMARY | 2024-04-12 14:08 | XMS_ITS | Encounter Summary ---
Author Organization [facility] [place] [address] Care Team Providers Care Chicken And Fish Butcher Name Role Phone Patricio Gabriel MD Primary Care Provider Reason for Visit * Consultation (Routine) - Closed Specialty Diagnoses / Procedures Referred By Contjet t Referred To Contact Nephrology Diagnoses Proteinuria, unspecified type Patricio Gabriel MD [address] [address] [facility] [address] [place] [phone] Referral ID Status Reason Start Date Expiration Date V isits Requested Visits Authorized [id number] Closed Consult, Test & Treat PCP Updated and/or Approved 06/26/2022 06/26/2023 6 6 Encounter Details Date Type Department Care Team (Latest Contact Info) Description 02/13/2023 11:20 AM EST Office Visit Neph[place] [phone] Raciel Gallardo MD [facility] [place] [address] Rosy Borjas APRN [facility] [place] [address] Proteinuria, unspecified type; Other proteinuria Social History Tobacco Use Types Packs/Day Years [...] Sign Reading Time Taken Comments Blood Pressure 180/83 02/13/2023 11:17 AM EST Pulse 64 02/13/2023 11:17 AM EST Temperature - - Respiratory Rate - - Oxygen Saturation 97% 02/13/2023 11:17 AM EST Inhaled Oxygen Concentration - - Weight 68.6 kg (151 lb 3.2 oz) 02/13/2023 11:17 AM EST Height - - Body Mass Index 25.16 02/01/2022 8:44 AM EDT documented in this encounter Progress Notes * Rosy Borjas APRN - 02/13/2023 11:20 AM EST Hypertension/Nephrology Consultation Yesi Estrella [id number] 1950 ID: 72 y.o. old female seen at the request of Dr. Patricio Gabriel for evaluation of proteinuria. Past Medical History: Patient Active Problem List Diagnosis Code Chronic leg pain M79.606, G89.29 Chronic low back pain M54.50, G89.29 Right lumbar radiculopathy with L4-L5 HNP M54.16 Thoracic or lumbosacral neuritis or radiculitis, unspecified [id number] S/P Revision Right L4-S1 decompression, Right L4-5 diskectomy - 09/14/13 ([facility]) Z98.890 Atrial fibrillation with RVR I48.91 Radiculopathy of lumbar region M54.16 Back pain M54.9 History of Present Illness: Yesi Estrella is a 72 y.o. female with a past medical history significant for HTN, DM, chronic low back pain, chronic leg pain. She had an increase in proteinuria and decrease in renal function in September 2021 Creat 1.31, GFR 44 06/21/22 negative SPEP and UPEP, C3 and C4 normal range, ABDELRAHMAN negative 06/25/22 24 hour urine TV = 2600ml Urine creatinine 25.78mg/dl Creatinine, 24hr Ur 0.67g/24hrs Total protein urine 26.2mg/dl Total protein 24hr urine 681.2mg/24hrs Random prot/creat ratio 1.75 Creatinine/GFR trends over time: 05/20/21 0.70/87 Microalbumin 06/25/22 244 Today, Yesi shares that her energy level is low. She is sleeping well. No lightheadedness or dizziness. No SOB. No chest pain/pressure. Appetite, so-so, no special diet. Hydration fair, she statesshe probably should drink more water. No N/V/D. No changes in urination. Voiding several times a day. Nocturia with some urgency. No bloody or foamy urine. No dysuria. Able to empty bladder. Occasional muscle cramps in legs at night. Some swelling at times in lower legs. Home SBP 99 - 130s Home BS 145 at 2pm Risk factors for CKD: HTN: diagnosed more than 5 years ago Heart or vascular disease: no Smoking: quit years ago Diabetes: diagnosed more than 5 years ago Retinopathy: no Neuropathy: yes LEO: no NSAIDS: just Tylenol Herbal Supplements: no Autoimmune disease: no UTI: had recurrent infections at 6 years old. Had ureter surgery in . Now has about 2 UTIs peryear. Stones: no Gestational Age: no Recent Infections: no : no issues Medications: Outpatient Encounter Medications as of 02/13/2023 Medication Sig Dispense Refill estradioL (ESTRACE) 0.5 mg Tablet TAKE 1 TABLET BY MOUTH ONCE DAILY glipiZIDE XL (Glucotrol XL) 2.5 mg Tablet Extended Rel 24 hr metFORMIN (Glucophage) 850 mg Tablet TAKE 1 TABLET BY MOUTH ONCE DAILY rosuvastatin (Crestor) 10 mg Tablet TAKE 1 TABLET BY MOUTH ONCE DAILY AT NIGHT cyclobenzaprine (Flexeril) 10 mg Tablet Take 1 tablet by mouth 3 times daily as needed for Muscle spasms. 30 tablet 0 pantoprazole (PROTONIX) 40 mg Tablet, Delayed Release (E.C.) atenolol (TENORMIN) 50 mg Tablet lisinopril (PRINIVIL;ZESTRIL) 20 mg Tablet TAKE ONE [...] Muscle spasms. (Patient not taking: Reported on 02/12/2023) 30 tablet 0 [DISCONTINUED] polyethylene glycoL (Miralax) 17 gram Powder in Packet Take 17 g by mouth daily as needed. (Patient not taking: Reported on 02/12/2023) 14 each 0 No facility-administered encounter medications on file as of 02/13/2023. Allergies / ADRs: Allergies Allergen Reactions Meperidine Hcl Anaphylaxis Prochlorperazine CIS - JITTERY Simvastatin Other Reaction(s): Other Family History: No family history of kidney disease Social History: , retired. 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 Review of Systems: System Abnormalities Constitutional No fevers, chills, or weight loss. Eye No visual changes, eye pain, or dry eye. ENT No headaches, oral mucosa dryness, nose bleeds. No throat pain or trouble swallowing. CV No leg swelling. No chest paint. No snoring, or apnea. Resp No shortness of breath. No cough. No difficulty breathing lying flat. GI No nausea, vomiting, change in bowel habits or abdominal pain. No heart burn or reflux. No change in urine output. No pain urinating or blood in urine. Skin No rash or itchy skin. No non-healing skin sores. Allergy Endocrine DM2 Neurologic No weakness. No numbness or tingling. Musculoskeletal No joint pain/swelling. No muscle pain. x Lymph Psych Y N All other systems reviewed and negative. x Physical Examination: Vitals: 02/13/23 1117 BP: 180/83 BP Location (NBP): Left arm Patient Position: Sitting BP Cuff Sizes: Adult (25-34 cm) Pulse: 64 SpO2: 97% Weight: 68.6 kg (151 lb 3.2 oz) General: Arrived ambulatory. Alert, comfortable. Cooperative with exam. HEENT: Sclera white. Mucous membranes moist. No lymphadenopathy. CV: S1 and S2. HR regular. JVP not elevated. Resp: Lungs clear with no crackles or wheezes. Respirations non labored. Abd: Soft. + BS. No bruit. Non tender. : No CVA tenderness. Some CVA tenderness on right. Ext: Warm. No cyanosis. No edema. Skin: No rash. Neuro: Intact. No asterixis. Psych: Mood appropriate Labs: Latest Reference Range & Units 02/13/23 13:09 WBC 4.0 - 9.5 x10(3)/mcL 9.6 (H) RBC 4.00 - 5.21 x10(6)/mcL 4.58 Hemoglobin 11.7 - 15.5 g/dL 14.8 Hematocrit 35.7 - 45.8 % 43.5 MCV 82.6 - 94.4 fL 95.0 (H) MCH 27.1 - 32.0 pg 32.3 (H) MCHC 31.7 - 35.0 g/dL 34.0 RDWSD 37.0 - 46.0 fL 43.1 RDWCV 11.5 - 14.1 % 12.3 Platelets 145 - 357 x10(3)/mcL 255 MPV 7.6 - 12.9 fL 10.4 nRBC % Auto % 0.0 nRBC Abs Auto 0.000 - 0.000 x10(3)/mcL 0.000 Neutr Abs (ANC) 1.70 - 6.10 x10(3)/mcL 5.14 Neutrophils % % 53.4 Immature Gran % % 0.20 Lymphocytes % % 34.0 Monocytes % % 9.3 Eosinophils % % 2.7 Basophils % % 0.4 Denise Gran Abs 0.00 - 0.04 x10(3)/mcL 0.02 Lymphocytes Abs 0.9 - 3.2 x10(3)/mcL 3.3 (H) Monocyte Abs 0.3 - 0.9 x10(3)/mcL 0.9 Eosinophils Abs 0.0 - 0.4 x10(3)/mcL 0.3 Basophils Abs 0.0 - 0.1 x10(3)/mcL 0.0 Sodium 135 - 145 mmol/L 143 Potassium 3.5 - 5.0 mmol/L 4.6 Chloride 98 - 107 mmol/L 106 CO2 22 - 31 mmol/L 29 Anion Gap 5 - 15 mmol/L 8 BUN 8 - 18 mg/dL 18 Creatinine 0.70 - 1.20 mg/dL 0.98 Estimated GFR >=60 mL/min/1.73 m?? 61 Calcium 8.5 - 10.5 mg/dL 9.6 Phosphorus 2.5 - 4.5 mg/dL 3.0 Glucose Lvl 65 - 199 mg/dL 92 Albumin 3.2 - 5.2 g/dL 4.3 PTH 15 - 65 pg/mL 48 (H): Data is abnormally high A/P: 72 y.o. old female seen at the request of Dr. Patricio Gabriel for evaluation of proteinuria. Protein in urine most likely present due to DM. Renal function preserved. Goal in care will be to keep BP under control, < 140/90. Will apply 24 hour BP monitor to establish baseline. Will discuss addition of SGLT2 with PCP. Return to clinic - Will return in approximately 3 months for follow-up. Patient encouraged to reachout with any questions or concerns. >the total time spent [id number] AND total time the provider spent counseling was 40 minutes. Please CC to: Patricio Gabriel MD @PCPADD@ 02/21/23 - 24 hour BP monitor shows average BP reading in goal of 128/69 with appropriate nocturnaldip. * Raciel Gallardo MD - 02/13/2023 11:20 AM EST This patient was seen in conjunction with Rosy Borjas APRN. I performed the majority of this shared visit based on medical decision making. 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 Modest proteinuria. BP elevated here today butreports well controlled BP at home. - continue lisinopril - check 24 hour BP monitor - target BP < 140/90 - target A1c < 7.5 as tolerated - if home BP remains elevated, increase lisinopril. If home BP is well controlled, will add SGLT-2 inhibitor in light of persistent proteinuria documented in this encounter Miscellaneous Notes * Addendum Note - Raciel Gallardo MD - 02/13/2023 11:20 AM ESTAddended by: RACIEL GALLARDO on: 02/24/2023 05:08 PM Modules accepted: Level of Service documented in this encounter Plan of Treatment Not on file documented as of this encounter Results * (ABNORMAL) _Urinalysis with microscopic (02/13/2023 1:12 PM EST) Glucose, Urine Dipstick Negative Negative mg/dL [facility] Protein, Urine Dipstick >=300(A) Negative mg/dL [facility] Bilirubin, Urine Dipstick Negative Negative mg/dL [facility] Comment: Clinical correlation required for positive Urine Bilirubin results as false positive may occur with some drugs and drug related products. If a false positive is suspected a serum total bilirubin should be considered if clinically indicated. Urobilinogen, Urine Dipstick Normal Normal mg/dL [facility] pH, Urn (dipstick) 6.0 5.0 - 8.0 [facility] Blood, Urine Dipstick Large(A) Negative mg/dL [facility] Ketone, Urine Dipstick Trace(A) Negative mg/dL [facility] Nitrite, Urine Dipstick Negative Negative [facility] Leukocytes, Urine Dipstick Trace(A) Negative mcL [facility] Appearance, Urine Dipstick Cloudy(A) Clear [facility] Specific [place] Urine Automated 1.022 1.005 - 1.030 [facility] Color, Urine Dipstick Yellow Yellow [facility] RBC, Urine 37(H) 0 - 4 /HPF [facility] WBC, Urine 6(H) 0 - 5 /HPF [facility] Bacteria, Urine Many(A) None /HPF [facility] Squamous Epithelial Cells Raw Data, Urine 7(H) <=4 /HPF [facility] Hyaline Casts, Urine 11(H) 0 - 2 /LPF [facility] Urine 02/13/2023 1:12 PM EST 02/13/2023 1:20 PM EST Narrative Resulting Agency Comment Spec In Lab Rosy Borjas GOLD PROSPECTOR URINE ORDERABLES [facility] [place] [address] * PTH (02/13/2023 1:09 PM EST) Parathyroid Hormone 48 15 - 65 pg/mL [facility] Blood 02/13/2023 1:09 PM EST 02/13/2023 1:14 PM EST Narrative Resulting Agency Comment Spec In Lab Rosy L Indio GOLD PROSPECTOR CHEMISTRY ORDERAB LES Performing Organization Address City/[facility]/ZIP Co de Phone Number [facility] [place] [address] * Phosphorus (02/13/2023 1:09 PM EST) Phosphorus 3.0 2.5 - 4.5 mg/dL [facility] Blood 02/13/2023 1:09 PM EST 02/13/2023 1:14 PM EST Narrative Resulting Agency Comment Spec In Lab Rosy L Indio GOLD PROSPECTOR CHEMISTRY ORDERAB LES Performing Organization Address [facility] de Phone Number [facility] [place] [address] * Basic Metabolic Panel (non-fasting) (02/13/2023 1:09 PM EST) Glucose 92 65 - 199 mg/dL [facility] Comment:Diabetes: >=200 mg/d L plus symptoms Blood Urea Nitrogen 18 8 - 18 mg/dL [facility] Creatinine 0.98 0.70 - 1.20 mg/dL [facility] Sodium 143 135 - 145 mmol/L [facility] Potassium 4.6 3.5 - 5.0 mmol/L [facility] Comment: Please note: ??Patients with WBC >100,000 may have falsely elevated Potassium levels. ??For accurate Potassium quantification in these patients send serum separator tube (gold top) for subsequent determinations. ??Contact the Clinical Chemistry Laboratory if there are any questions. Chloride 106 98 - 107 mmol/L [facility] Carbon Dioxide 29 22 - 31 mmol/L [facility] Anion Gap 8 5 - 15 mmol/L [facility] Calcium 9.6 8.5 - 10.5 mg/dL [facility] Est Glomerular Filtration Rate 61 >=60 mL/min/1. 73 m?? [facility] Comment: This patient's estimated GFR [...] Comment Spec In Lab Rosy L Indio GOLD PROSPECTOR CHEMISTRY ORDERAB LES Performing Organization Address City/[facility]/ZIP Co de Phone Number [facility] [place] [address] * Albumin Level (02/13/2023 1:09 PM EST) Albumin 4.3 3.2 - 5.2 g/dL [facility] Blood 02/13/2023 1:09 PM EST 02/13/2023 1:14 PM EST Narrative Resulting Agency Comment Spec In Lab Rosy L Indio GOLD PROSPECTOR CHEMISTRY ORDERAB LES Performing Organization Address City/[facility] Co de Phone Number [facility] [place] [address] documented in this encounter Visit Diagnoses Diagnosis Proteinuria, unspecified type documented in this encounter Care Teams Chicken And Fish Butcher Relationship Specialty Start Date End Date Patricio Gabriel MD [address] [place] [id number] PCP - General 02/20/10 documented as of this encounter
--- OUTSIDE RECORDS SUMMARY | 2024-04-12 14:08 | XMS_ITS | Encounter Summary ---
Author Organization [place] [address] Care Team Providers Care Insurance Consultant Name Role Phone Patricio Gabriel MD Primary Care Provider Encounter Details Date Type Department Care Team (Late st Contact Info) Description 05/22/2021 [place] [phone] Bhavna Kimball Social History Tobacco Use Types Packs/Day Years [...] encounter Miscellaneous Notes * Telephone Encounter - Bhavna Kimball - 05/22/2021 1:44 PM EST Caller: Patient Best time to reach caller: anytime Best number to reach caller: [phone] Reason for call: Pt calling to refill Flexeril 10 mg, Called into [facility] pharmacy in [facility], pharmacy's ph #[phone] Please call pt once called in. Recent Surgery?: Yes, Dr. Fountain If before 4:00 pm: Inform caller that the typical expectation for a call back is within 1-2 hours. If after 4:00 pm: Inform caller that if the nurse does not call back by the end of the day, they will be called in the AM of the next business day. documented in this encounter Plan of Treatment Not on file documented as of this encounter Visit Diagnoses Not on filedocumented in this encounter Care Teams Insurance Consultant Relationship Specialty Start Date End Date Patricio Gabriel MD [address] [place] [phone] PCP - General 02/20/10 documented as of this encounter
--- OUTSIDE RECORDS SUMMARY | 2024-04-12 14:08 | XMS_ITS | Encounter Summary ---
[place] [address] Care Team Providers Care Spinning Machine Operator Name Role Phone Patricio Gabriel MD Primary Care Provider Reason for Referral * Consultation (Routine) - Closed Specialty Diagnoses / Procedures Referred By Contac t Referred To Contact Nephrology Diagnoses Proteinuria, unspecified type Patricio Gabriel MD [address] [place] [phone] [facility] [address] [place] [phone] Referral ID Status Reason Start Date Expiration Date V isits Requested Visits Authorized [id number] Closed Consult, Test & Treat PCP Updated and/or Approved 06/26/2022 06/26/2023 6 6 Encounter Details Date Type Department Care Team (Latest Contact Info) Description 06/26/2022 Transcribe Orders eDH Incoming Referrals [phone] Patricio Gabriel MD [address] [place] [phone] Proteinuria, unspecified type Social History Tobacco Use [...] Associated Diagnoses Orde r Schedule Referral to Nephrology Outpatient Referral Routine Proteinuria, unspecified type Ordered: 06/26/2022 documented as of this encounter Visit Diagnoses Diagnosis Proteinuria, unspecified type documented in this encounter Care Teams Spinning Machine Operator Relationship Specialty Start Date End Date Patricio Gabriel MD [address] [place] [phone] PCP - General 02/20/10 documented as of this encounter
--- OUTSIDE RECORDS SUMMARY | 2024-04-12 14:08 | XMS_ITS | Encounter Summary ---
Author Organization [facility] [place] [address] Care Team Providers Care Mattress Inspector Name Role Phone Patricio Gabriel MD Primary Care Provider [phone] Encounter Details Date Type Department Care Team (Late st Contact Info) Description 07/03/2021 Telephone [place] [phone] Jackie Davidson Social History Tobacco Use Types Packs/Day Years [...] encounter Miscellaneous Notes * Telephone Encounter - Jackie Davidson - 07/04/2021 11:05 AM EDT Pt calling to request referral to PT be sent to [facility]. Faxed referral, demos, and OV notes. documented in this encounter Plan of Treatment Not on file documented as of this encounter Visit Diagnoses Not on filedocumented in this encounter Care Teams Mattress Inspector Relationship Specialty Start Date End Date Patricio Gabriel MD [address] [place] [phone] PCP - General 02/20/10 documented as of this encounter
--- OUTSIDE RECORDS SUMMARY | 2024-04-12 14:08 | XMS_ITS | Encounter Summary ---
Author Organization [facility] Address [facility] [place] [address] Care Team Providers Care Contracts Manager Name Role Phone Patricio Gabriel MD Primary Care Provider Reason for Visit * Reason Comments Back Pain Leg Pain right * Auth/Cert Specialty Diagnoses / Procedures Referred By Contac t Referred To Contact Diagnoses Back pain Procedures na Referral ID Status Reason Start Date Expiration Date Visits Re quested Visits Authorized [id number] 1 1 Encounter Details Date Type Department Care Team (Late st Contact Info) Description 05/08/2021 9:00 AM EST - 05/08/2021 12:48 PM EST [place] [phone] Nancy Fountain MD [facility] [place] [address] LAMINECTOMY LUMBAR, DECOMPRESSION, 1 OR 2 SEGMENTS (WRVU 16.43) Social History Tobacco Use Types Packs/Day Years [...] EST Temperature 36.9 ??C (98.4 ??F) 05/08/2021 1 2:20 PM EST Respiratory Rate 15 05/08/2021 12:4 5 PM EST Oxygen Saturation 97% 05/08/2021 12: 45 PM EST Inhaled Oxygen Concentration - - Weight 65.7 kg (144 lb 12.8 oz) 022 10:39 PM EST Height 165.1 cm (5' 5) 05/07/2021 10:5 6 AM EST Body Mass Index 24.1 05/07/2021 11:23 AM EST documented in this encounter Discharge Summaries * Nancy Fountain MD - 05/10/2021 12:02 PM [...] a PMHx significant for HTN, TIIDM, Afib onno anticoagulation, essential tremor (on no medications), and chronic back and leg pain (s/p L L3-5hemilaminectomies w L3-[address] Lu 03/2004 and then L4-S1 R hemilaminectomies, R L4-[address] Douglass 08/2013) who presents to the ED with R leg pain, numbness, and weakness. ?? Yesi is accompanied by her today. Over the last 3-4 weeks she has been dealing with pain in her R buttock with radiation into the side and back of the leg. She has always had numbness in thefront of her ruht and on the top of her right foot, but now it seems like the numbness is going up higher and including more of her foot. She hasn't been able to walk without hanging on to her she thinks due to pain and not being able to feel the floor well. She denies having any left sidedsymptoms or bowel/bladder changes. Yesi has been working with her PCP to find a helpful medicationfor pain control, without much success. A referral to the Pain Clinic was sent and she was due for an outpatient MRI tomorrow, but chose to come today because, she just couldn't take it any more. Hospital Course: Yesi Estrella presented 05/07/2021 and was admitted under the neurosurgery service to the generalneuro floor for further work-up and management of her RIGHT L5-S1 disc herniation. On 05/08/21 patient taken to the OR with Dr. Fountain and underwent L5-S1 hemilaminectomy and micro discectomy. Incision was closed with hitesh (due to be removed 05/22/21). There were no complications with the procedure. Patient tolerated the procedure well. Following the procedure patient was extubated successfully, awakened in PACU, and transferred back to the general neuro floor for pain managementand neurological observation. Patient was evaluated by rehab services and deemed appropriate for home with VNA.Patient will be discharged home with a walker. Patient was discharged in stable condition 05/10/21 At time of discharge patient is afebrile, hemodynamically stable, tolerating a regular diet, ambulating with minimal ass istance with walker, voiding spontaneously, and managing pain [...] Not Detected Not Detected SARS-Cov-2 RNA Source SUPERVISOR MICROFILM DUPLICATING UNIT Swab Studies: Results for orders placed or [...] in context of the clinical situation (Reference- Ejvik Et Al, Spine 2001). Findings: (Prevalence [...] who have questions please contact the health sub acute care nurse that requested your imaging first. Pending Studies and Lab Data: N/A Discharge Condition: Stable Discharge to: Home with VNA Future Appointments and Orders Future Orders Complete By Expires Referral to Home Health - at DISCHARGE [[id number] CPT(R)] As directed Process Instructions: Scheduling Instructions: Comments: DOCUMENTATION FOR VNA SERVICES (INCLUDING THOSE PATIENTS WITH MEDICARE COVERAGE REQUIRING HOME VNA SERVICES AND/OR HOSPICE SERVICES) PATIENT'S LOCATION: Yesi Bhatticharbel [address] [place] [phone] (home) Cell: Telephone Information: Critical Care Cns's Name: Marcus In discussion with the attending physician, it is certified that this patient is under their care and that they, or a Nurse Practitioner,Clinical Nurse specialist or Physician Lamp Shades Supervisor who is working directly with them, had a face to face encounter that meets the physician face to face encounter requirements with this patient on 05/10/2021. The encounter with the patient was in whole, or in part, for the following medical condition, whichis the primary reason for home health care services: Laminectomy In discussion with the provider, it is certified that, based on their findings, the following services are medically necessary for home health services. To provide the following care/treatments with the clinical findings supporting the need for services as follows: HOME CARE ORDERS: PT ORDERS: Continue rehab for endurance, gait stability and strength with mobility and transfers. Home safety evaluation. Home exercise program if appropriate. OT: assess and continue rehab for managing ADL's. [facility] HEALTH CARE AGENCY: [facility] PHONE: [phone] FAX: [phone] Start of care: FOR MEDICARE ONLY: In discussion with the attending physician, it is certified that the clinical findings support that this patient is homebound because absences from home require considerable and taxing effort due to: new to using device (FWW) and back pain s/p laminectomy Please note that any additional orders needs or changes will need to be obtained from this patient's PCP: Patricio Gabriel MD [address] [place] [address] [phone] All A agencies which cover the area of patient's residence have been reviewed, either verbally chino writing, and patient/family have chosen the home health care agency noted Questions: Agency name and contact information: [facility] Patient location post discharge: [facility] What services are requested: Physical Therapy Occupational Therapy Start date: Responsible MD post discharge contact info: PCP Walker standard [EQ135 Custom] As directed Process Instructions: Scheduling Instructions: Comments: Yesi Estrella [address] [place] [phone] (home) Telephone Information: Diagnosis: deconditioning with Unsteady gait, back pain s/p hemilaminectomy Significant weakness, ataxia or gait abnormality Patient's: Hgt: Ht Readings from Last 1 Encounters: 05/07/21 : 165.1 cm (5' 5) ? Wgt: Wt Readings from Last 1 Encounters: 05/07/21 : 65.7 kg (144 lb 12.8 oz) VENDOR: [facility] @ [place], [place] Ordering: Front wheel walker Deliver to [...] known as antiplatelet, anticoagulant, and non-steroidal anti-inflammatory (NSAIDs) drugs. Common grnm-qwm-wdoiyuf medications which should be avoided include Aspirin, ibuprofen, and naproxen among others. These medications are sometimes combined with other drugs or are sold undera trade name. Common prescription medications which should be avoided include Plavix (clopidogrel) and Coumadin (warfarin) among others. The following medications are commonly prescribed after surgery. An [x] indicates that these medications have been prescribed for you. [x] Opioids - Pain relief: Oxycodone 5mg every 4-6 hours Opioids are commonly prescribed after surgery for severe pain. DO NOT use alcohol, drive, or operate heavy machinery while taking these medications. These medications may cause constipation. [x] Stool softeners - Constipation relief: docusate or senakot Stool softeners are commonly used after surgery to help make stools easier to pass. These medications can be obtained fsjt-ywt-nqnmdqt and their use is recommended on an [...] DO NOT use alcohol, drive, or operate heavy machinery while taking these medications. WHEN TO SEEK [...] retention Constipation not relieved by diet and/or tiex-pqu-hbtgnle stool softeners and laxatives Nausea/vomiting (upset stomach) [...] running, jumping, jogging, shoveling, etc.) until cleared byyour surgical team - Avoid bending and twisting your spine. DRIVING: - Do not drive while taking narcotic pain medication. [x] You may return to driving 2 weeks after surgery. FOLLOW UP PLAN: Incision: Please follow up for staple removal approximately 2 weeks after the operation on 05/22/21 with your Primary Care Provider or with the Neurosurgery SUPERVISOR MICROFILM DUPLICATING UNIT/RN. Your hitesh may also be removed at rehab. Appointments: Please follow up in the Neurosurgery Clinic in 4-[address] Fountain. Please call the Neurosurgery Office at [phone] if you do not receive a scheduled appointment within two weeks. Follow-up Imaging: None HOW TO REACH NEUROSURGERY Office Hours: Friday through Friday, 8am-5pm. Call . On weekends or after office hours: Call [phone] and ask the rail transit operator to page the Neurosurgery Resident/Advanced Practice Provider oracle application consultant. IMPORTANT PHONE NUMBERS: Outpatient Nurse (Robyn Cochran) Inpatient Nurses Neurosurgical Resident/Advanced Practice Provider On-Call (after 5pm or before 8am) Neurosurgery offices (Friday through Friday between 8am-5pm): Adult Neurosurgery Dr. Luigi Ernandez Pediatric Neurosurgery Dr. Harika Nelson Advanced Practice Providers Elle Morgan, Nurse Practitioner (outpatient) Génesis Parekh, Physician Lamp Shades Supervisor (inpatient) Abiola Saxena, Nurse Practitioner (inpatient) Sima Diaz Physician Lamp Shades Supervisor (inpatient) Sima Reddy, Physician Lamp Shades Supervisor (inpatient) Brenda Davidson, Nurse Practitioner (outpatient: vascular) Daysi Jeffery Physician Lamp Shades Supervisor (outpatient: spine) Abhsihek Mckinney, Nurse Practitioner (inpatient/outpatient) Cain Kelley Physician Lamp Shades Supervisor (outpatient) Fabiana Magaña, Nurse Practitioner (outpatient: neuro-oncology) HOW TO REACH NEUROSURGERY Office Hours (Friday through Friday 8am-5pm): Call On weekends or after office hours (after 5pm or before 8am): Call [phone] and ask the rail transit operator to page the Neurosurgery Resident/Advanced Practice Provider oracle application consultant. *Your surgeon may not be ear nose throat physician (especially after office hours or on the weekend) so be ready totell about yourself and your surgery when you call. Neurosurgery Providers Adult Neurosurgery Dr. Luigi Ernandez Pediatric Neurosurgery Dr. Harika Nelson Advanced Practice Providers Elle Morgan, Nurse Practitioner (outpatient) Génesis Parekh, Physician Lamp Shades Supervisor (inpatient) Abiola Saxena, Nurse Practitioner (inpatient) Sima Diaz Physician Lamp Shades Supervisor (inpatient) Piyush Voss Nurse Practitioner (outpatient: pediatric) Sima Reddy, Physician Lamp Shades Supervisor (inpatient) Brenda Davidson, Nurse Practitioner (outpatient: vascular) Daysi Jeffery Physician Lamp Shades Supervisor (outpatient: spine) Abhishek Mckinney, Nurse Practitioner (inpatient/outpatient) Cain Kelley, Physician Lamp Shades Supervisor (outpatient) Fabiana Magaña, Nurse Practitioner (outpatient: neuro-oncology) Outpatient Nurses Lupe Jiménez APRN 05/10/2021 documented in this encounter Discharge Instructions * Patient Instructions* Jacki Jiménez, FINISHING PAN OPERATOR - 05/09/2021 7:14 AM EST SPINAL SURGERY DISCHARGE INSTRUCTIONS PRESCRIPTION INSTRUCTIONS: Please see the medication reconciliation list on this discharge summary for a current list of your medications. Stop the use of blood thinning medications until instructed otherwise by your surgical team. This includes medications known as antiplatelet, anticoagulant, and non-steroidal anti-inflammatory (NSAIDs) drugs. Common dcfc-izd-ekuvsyf medications which should be avoided include Aspirin, ibuprofen, and naproxen among others. These medications are sometimes combined with other drugs or are sold undera trade name. Common prescription medications which should be avoided include Plavix (clopidogrel) and Coumadin (warfarin) among others. The following medications are commonly prescribed after surgery. An [x] indicates that these medications have been prescribed for you. [x] Opioids - Pain relief: Oxycodone 5mg every 4-6 hours Opioids are commonly prescribed after surgery for severe pain. DO NOT use alcohol, drive, or operate heavy machinery while taking these medications. These medications may cause constipation. [x] Stool softeners - Constipation relief: docusate or senakot Stool softeners are commonly used after surgery to help make stools easier to pass. These medications can be obtained xyka-pvm-fjuazyz and their use is recommended on an [...] DO NOT use alcohol, drive, or operate heavy machinery while taking these medications. WHEN TO SEEK [...] retention Constipation not relieved by diet and/or emrc-haw-krmggjh stool softeners and laxatives Nausea/vomiting (upset stomach) [...] running, jumping, jogging, shoveling, etc.) until cleared byyour surgical team - Avoid bending and twisting your spine. DRIVING: - Do not drive while taking narcotic pain medication. [x] You may return to driving 2 weeks after surgery. FOLLOW UP PLAN: Incision: Please follow up for staple removal approximately 2 weeks after the operation on 05/22/21 with your Primary Care Provider or with the Neurosurgery SUPERVISOR MICROFILM DUPLICATING UNIT/RN. Your hitesh may also be removed at rehab. Appointments: Please follow up in the Neurosurgery Clinic in 4-[address] Fountain. Please call the Neurosurgery Office at [phone] if you do not receive a scheduled appointment within two weeks. Follow-up Imaging: None HOW TO REACH NEUROSURGERY Office Hours: Friday through Friday, 8am-5pm. Call . On weekends or after office hours: Call [phone] and ask the rail transit operator to page the Neurosurgery Resident/Advanced Practice Provider oracle application consultant. IMPORTANT PHONE NUMBERS: Outpatient Nurse (Robyn Cochran) Inpatient Nurses Neurosurgical Resident/Advanced Practice Provider On-Call (after 5pm or before 8am) Neurosurgery offices (Friday through Friday between 8am-5pm): Adult Neurosurgery Dr. Luigi Cabrales Dr. Adrian C. Ryken Dr. Mihai E. Ernandez Pediatric Neurosurgery Dr. Harika Nelson Advanced Practice Providers Elle Morgan, Nurse Practitioner (outpatient) Génesis Parekh, Physician Lamp Shades Supervisor (inpatient) Abiola Saxena, Nurse Practitioner (inpatient) Sima Diaz, Physician Lamp Shades Supervisor (inpatient) Sima Reddy, Physician Lamp Shades Supervisor (inpatient) Brenda Davidson, Nurse Practitioner (outpatient: vascular) Daysi Jeffery, Physician Lamp Shades Supervisor (outpatient: spine) Abhishek Mckinney, Nurse Practitioner (inpatient/outpatient) Cain Kelley, Physician Lamp Shades Supervisor (outpatient) Fabiana Magaña, Nurse Practitioner (outpatient: neuro-oncology) documented in this encounter Medications at Time of Discharge Medication Sig Dispensed Refills Start Date End Date estradioL (ESTRACE) 0.5 mg Tablet TAKE 1 TABLET BY MOUTH ONCE DAILY 03/27/2021 glipiZIDE XL (Glucotrol XL) 2.5 mg Tablet Extended Rel 24 hr Take 2.5 mg by mouth daily. 01/09/2021 pantoprazole (PROTONIX) 40 mg Tablet, Delayed Release [...] every 8 hours. 30 tablet 1 09/17/2013 docusate sodium (Colace) 100 mg Capsule Take 1 capsule by mouth 2 times daily as needed for Constipation for up to 10 days. 20 capsule 05/10/2021 05/20/2021 polyethylene glycoL (Miralax) 17 gram Powder in Packet Take 17 g by mouth daily as needed. 14 each 05/10/2021 02/12/2023 cyclobenzaprine (Flexeril) 10 mg Tablet Take 1 tablet by mouth 3 times daily as needed for Muscle spasms. 30 tablet 05/10/2021 05/22/2021 documented as of this encounter Progress Notes * Albino Ortega, PT - 05/10/2021 3:43 PM [...] 05/08/21, but could not stand the pain andpresented to the ED. MRI done and showed a large Right L5-S1 disc extrusion. She underwent 05/08/21emergent L5-S1 discectomy. She has issues with pain [...] the shower; has slider doors in shower, uses door frame to hold onto at times. Stairs: [...] a rolling walker 8 years ago, but thinksshe gave it away Fall history: none ?? [...] than the front seat of the car, stated by patient. Objective: Patient seen for physical therapy [...] leg. ?? This PT brought patient [facility] in wheelchair to meet with . ?? Pt able to walk to car with walker with supervision. ?? Pt turned to sit in back passenger side seat, she needed min assist to get RLE into car and assist with seat belt. ?? educated on her status and need for assistance, and pt aware to have assistance with allmobility, and reviewed role of home PT services. ?? Pt left with in car for d/c, and they felt comfortable with her status. Assessment: Yesi Estrella was seen today for physical therapy treatment session for continuation of POC. Pt getting ready to d/c; reviewed stairs and safety with mobility with patient and then with her when she was brought to [facility] for d/c. Pt needs a walker and one assist for all mobility at this time, assist with bed mobility, and assist with stairs. aware of herstatus, and pt and comfortable with d/c home today with home services set up. reports she looks much better than when she came to the hospital. Pt will definitely benefit from home PTservices at home for continued safety and mobility progression. Discharge Recommendations: Based on the current findings, Anticipated Discharge Disposition (PT): home with home health, home with supervision (home with supportive and home services.) when medically ready for hospitaldischarge. Consult Recommendations: home PT being set up Equipment needs: Anticipated Equipment Needs at Discharge (PT): (rolling walker had been delivered) Physical Therapy Goals: To be achieved by 05/14/21:-(The BELOW GOALS remain ONGOING-and are to be continued with home PT) ?? 1. Pt. to demonstrate knowledge of safety limitations and precautions and will appropriately request assistance for functional activities and to mobilize. 2. Pt. to demonstrate understanding of AROM and breathing exercises. 3. Pt. to perform bed mobility with supervision while avoiding spine strain 4. Pt. to perform Sit<->stand and Stand Pivot transfers with supervision using a front wheeled walker. 5. Pt. to ambulate 100 feet with supervision using a front wheeled walker. 6. Pt. to ambulate up/down 2 step/stairs using one rail and one hand hold with CGA. 7. Family or caregiver to demonstrate understanding of therapeutic interventions to support the care of the patient. Plan: Therapy Frequency (PT): (d/c today with home services and family support; home PT recommended) for as outlined in initial evaluation. Time IN / OUT: 1536 to 1554 (flow sheet entered and note entered at 1543 due to d/c time) Total Minutes, Physical Therapy: 18 ; Billing Code: functional mobility ALBINO ORTEGA, PT Pager:[phone] Physical Therapy Inpatient Rehabilitation Department * Albino Ortega PT - 05/09/2021 3:34 PM [...] LUMBAR performed by Tawanda Douglass MD at [facility] MAIN OR ??? PRO DOMINIQUE W/O FACETEC FORAMOT/DSKC 04/01 VRT SEG, LUMBAR Midline 05/08/2021 LAMINECTOMY LUMBAR, DECOMPRESSION, 1 OR 2 SEGMENTS (WRVU 16.43) performed by Nancy Fountain MD at [facility] MAIN OR ??? PRO MICROSURG TECHNIQUES, REQ OPER MICROSCOPE N/A 05/08/2021 MICROSCOPE USE (WRVU 3.46) performed by Nancy Fountain MD at [facility] MAIN OR ??? PRO REDO EXCIS LUMBAR DISC 09/14/2013 LAMINOTOMY W\DECOMPRESSION, ONE LVL, LUMBAR ,RE-EXPL (INCLDNG PART. FACETECTOMY, FORAMINOTOMY &\OR DISCECTOMY) performed by Tawanda Douglass MD at [facility] MAIN OR Social History: Home set-up: Lives with her in a one level home. is retired and will be home. Bathroom Set-up: tub shower and uses a plastic chair in the shower; has slider doors in shower, uses door frame to hold onto at times. Stairs: [...] a rolling walker 8 years ago, but thinksshe gave it away Fall history: none Precautions/Special Considerations: s/p Spine surgery- avoid strain; no specific precautions but avoid excessive bending, lifting or twisting. Decreased sensation RLE. Fall risk. Lines: IV BUEs Activity Orders: activity as tolerated Diet: Reg diet. Mobility and Positioning Recommendations: ?? Pt. to utilize rolling walker and contact guard for ambulation and transfers with nursing. Follow with chair with walking longer distances, sat and [...] to person, place, and time Vision: glasses multimedia designer. Skin: back incision bandaged and dry, IVs [...] contact guard to min assist; from std brownchair with contact guard and cues for hand [...] educated on Bed mobility, Transfers, Assistive device/technique, Stairs, Exercise, Breathing exercises, Positioning, Safety , Precautions/protocol, Equipment use, Gait , Activity pacing/Energy conservation, Home program, Role of therapy, Balance, Discharge planning and to call for assistance with all mobility and verbalizes understanding. Patient status, treatment, and mobility recommendations discussed with nursing. Ther-ex: reviewed deep breathing, and AROM ther-ex. Assessment: Yesi Jc Estrella was seen today for physical therapy evaluation. Patient presenting with general deconditioning due to recent impaired mobility at home, occ back pain, decreased RLE sensation and strength, and needs min assist to contact guard with walker and cues for safety with mobility today. She plans to return home with her [...] safety limitations and precautions and will appropriately request assistance for functional activities and to mobilize. 2. Pt. to demonstrate understanding of AROM and breathing exercises. 3. Pt. to perform bed mobility with supervision while avoiding spine strain 4. Pt. to perform Sit<->stand and Stand Pivot transfers with supervision using a front wheeled walker. 5. Pt. to ambulate 100 feet with supervision using a front wheeled walker. 6. Pt. to ambulate up/down 2 step/stairs using one rail and one hand hold with CGA. 7. Family or caregiver to demonstrate understanding of therapeutic interventions to support the care of the patient. Plan: Therapy Frequency (PT): 2-4 times/wk for therapy including balance training, bed mobility training, gait training, home exercise program, motor coordination training, neuromuscular re-education, patient/family education, postural re-education, range of motion, stair training, strengthening, st retching, transfer training and d/c planning, functional mobility training, self care and home management training. 2017 PT Evaluation Code Rationale: ?? Diagnosis & Pertinent Co-Morbidities, personal factors, and present illness affecting Plan of Care: (see above); Additional personal factors or co- [...] complexity based on pt's functional performance as outlinedin this evaluation. Time IN / OUT:1435 to 1534 Total Minutes, Physical Therapy: 59 Billing Code: evaluation, functional mobility and education ALBINO ORTEGA, PT Pager: [phone] Physical Therapy Inpatient Rehabilitation Department * Albino Ortega, PT - 05/09/2021 10:50 AM EST Physical Therapy Note PT referral received, chart reviewed, attempted to see patient this morning but she was fatigued after working with OT. Made plan to follow up later after her next pain medication dose. RN aware of pt's status. Albino Ortega, PT Beeper# [phone] * Joy Ceron OT - 05/09/2021 9:04 AM EST Occupational Therapy Evaluation Patient profile: Yesi Estrella is a 71 y.o. female admitted on 05/07/2021 with a PMHx significantfor HTN, TIIDM, Afib on no anticoagulation, essential tremor (on no medications), and chronic back and leg pain (s/p L L3-5 hemilaminectomies w L3-[address] Lu 03/2004 and then L4-S1 Rhemilaminectomies, R L4-[address] Douglass 08/2013) [...] LUMBAR performed by Tawanda Douglass MD at [facility] MAIN OR ??? PRO REDO EXCIS LUMBAR DISC 09/14/2013 LAMINOTOMY W\DECOMPRESSION, ONE LVL, LUMBAR ,RE-EXPL (INCLDNG PART. FACETECTOMY, FORAMINOTOMY &\OR DISCECTOMY) performed by Tawanda Douglass MD at [facility] MAIN OR Social History: Home Setup: Pt lives with her in a one level ranch with 2 EFREN, no railing. Tub shower with a seat but no bars present. Functional Status: Pt had been independent with all (I)ADLs until about 3 weeks ago when she began experieincing difficulty ambulating and increased pain and numbness in R LE. Since then pt's husbandhas been assisting with mobility and self-care tasks. [...] safety precautions, pt demonstrates increased awareness of numbness in R LE during ambulation ? ? 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 Communication o WFL ??? Musculoskeletal o [...] support, pt reported that R LE was numbbut she was able to bear weight throughout [...] These performance deficits have led to activity limitations and participation restrictions in the following areas of [...] sanchez with CGA using FWW due to decreased feeling in R LE. Pt appears to be near her baseline functional status. Recommend discharge home with supervision and home health services. Pt would also benefit from a FWW before discharge. Pt would benefit from further inpatient OT interventions to address [...] on tray table and physical assist only asneeded Other Recommendations: No other consults recommended at [...] moderate complexity using standardized patient assessment instrument and measurable assessment of functional outcome. Joy Ceron OTR/L Pager [phone] Occupational Therapy Rehabilitation Department * Masha Grayson MD - 05/09/2021 6:08 AM [...] leg pain, numbness, and weakness. Now s/p RL5S1 discectomy for HNP HD# 2 POD # [...] MOTOR: RUE: 5/5 LUE: 5/5 RLE: HF/KE/KF/DF/EHL 5/5; PF 2/5 Numbness down the posterolateral leg into the bottom/side of the foot. Persistent numbness on top of R foot Dressing dry, no strikethrough LABS: Recent [...] anticoagulation/antiplatelet - Carb control diet PLEASE PAGE [phone] WITH QUESTIONS Active Hospital Problems Diagnosis ??? [...] with L4-L5 HNP Masha Grayson MD 05/09/2021 * Elle Hackett RN - 05/08/2021 1:10 PM EST 1300 : Break coverage done, patient complaining of back pain 01/07, medicated with hydromorphone iv, vs's * Luis Fernando Luz MD - 05/08/2021 12:56 [...] leg pain, numbness, and weakness. Now s/p RL5S1 discectomy for HNP HD# 1 POD # [...] SCDs, Hold anticoagulation/antiplatelet - ADAT PLEASE PAGE [phone] WITH QUESTIONS Active Hospital Problems Diagnosis ??? [...] L4-L5 HNP Luis Fernando Luz MD 05/08/2021 * Gabriela Mena RN - 05/08/2021 12:20 PM [...] of water. Report given to RAFA Graff. * Albino Ortega PT - 05/08/2021 11:10 AM EST Physical Therapy Note PT referral received, pt in the OR at this time. Please update activity orders post procedure as appropriate. Thanks. Albino Ortega, PT Beeper# [phone] * Joy Ceron OT - 05/08/2021 9:06 AM EST Occupational Therapy Note Document Type: contact Total Minutes, Occupational Therapy: 0 Reason: 05/08/21 09 Evaluation & Treatment Document Type contact Total Minutes, Occupational Therapy 0 Comment, Session Not Performed Attempted to see pt for OT evaluation. However, pt was leaving for OR. Will follow-up and complete OT evaluation when appropriate. Pager: [phone] Joy Ceron, OTR/L 05/08/2021 Occupational Therapy Rehabilitation Department * Luis Fernando Luz MD - 05/08/2021 7:53 [...] (Give Meds) - OR today PLEASE PAGE [phone] WITH QUESTIONS Active Hospital Problems Diagnosis ??? [...] L4-L5 HNP Luis Fernando Luz MD 05/08/2021 * Can Dwyer RN - 05/08/2021 1:50 AM EST OUTCOME EVALUATION NOTE: OUTCOME SUMMARY: Pt A/ox4. Arrived to [facility] this evening. VSS on RA. NPO at [...] factors per assessment: [current deficits]: Weakness, Pain, Medications,Hospital Environment. Assistance [level of assistance required for transfers and ambulation]: 1x assist Supervision [direct monitoring required during toileting and ADLs]: Hands on with ADL's Surveillance [continuous indirect monitoring]: Masimo, Purposeful Rounding, Nurse Knowledge Exchange Patient-specific fall prevention interventions for sensory deficits provided, if applicable: CPG GOAL OUTCOME EVALUATION: documented in this encounter H&P Notes * Masha Grayson MD - 05/07/2021 5:31 PM EST [facility] NEUROSURGERY H&P Date: 05/07/2021 ID: Yesi Estrella, 71 y.o. female : 1950 Admission Date: 05/07/2021 PCP: Patricio Gabriel MD Consult information: Date & Time: 05/07/2021 5:32 PM Referring Service: Emergency Medicine Neurosurgery Attending: Nancy Fountain MD [place] Consult[place] [facility] [place] CC/Reason for consult: R leg pain, [...] weeks she has been dealing with pain in her R buttock with radiation into the side and back of the leg. She has always had numbness in thefront of her ruth and on the top of her right foot, but now it seems like the numbness is going up higher and including more of her foot. She hasn't been able to walk without hanging on to her she thinks due to pain and not being able to feel the floor well. She denies having any left sidedsymptoms or bowel/bladder changes. Yesi has been working with her PCP to find a helpful medicationfor pain control, without much success. A referral to the Pain Clinic was sent and she was due for an outpatient MRI tomorrow, but chose to come today [...] Thoracic or lumbosacral neuritis or radiculitis, unspecified [id number] ??? S/P Revision Right L4-S1 decompression, Right [...] LUMBAR performed by Tawanda Douglass MD at [facility] MAIN OR ??? PRO REDO EXCIS LUMBAR DISC 09/14/2013 LAMINOTOMY W\DECOMPRESSION, ONE LVL, LUMBAR ,RE-EXPL (INCLDNG PART. FACETECTOMY, FORAMINOTOMY &\OR DISCECTOMY) performed by Tawanda Douglass MD at [facility] MAIN OR Medications: No current facility-administered [...] TABLET BY MOUTH EVERY DAY NEEDS ANNUAL EXAM4 ??? traMADol (ULTRAM) 50 mg Tablet TAKE [...] tomorrow. Discussed uncertainty regarding neurological recovery given chronicityof symptoms, but hopeful for improvement in pain [...] MD. Masha Grayson MD 05/07/2021 5:32 PM [facility] Neurosurgery Inpatient Pager: [phone] Personal Pager: [phone] Active Hospital Problems Diagnosis ??? Back pain [...] L5-S1 foramen. We discussed risks, benefits, and alternativesto surgery, and she was agreeable to proceed. We will admit her tonight for pain control, and plan to add her to the operating room schedule for tomorrow morning documented in this encounter ED Notes * Luigi Stovall RN - 05/07/2021 1:25 PM EST Pt to MRI. * Jin Diaz PA - 05/07/2021 11:37 AM EST ED Provider Note HPI: Yesi Estrella is a 71 y.o. female with history of a prior L3-L4 and left L4- L5 decompression [id number] and a L4-S1 hemilaminectomy with discectomy at L4-L5 in 2013 who presents to the Emergency Department with 3 weeks of increasing right- sided back pain that goes into her leg. She denies any trauma to her back. Says she woke up 3 weeks ago and has essentially not been able to walk more than a co uple of steps. She needs full support from her to get out of bed and to walk. Denies any urinary retention, saddle paresthesia, or loss control of her [...] 2 prior lumbar spinal surgeries presents to the emergency department with 3 weeks of worsening right- sided back pain that radiates down her right leg. She reports that she has no sensation in the lower part of her leg. She denies any trauma to her back. She has no loss control of her bowels or bladder. Denies any numbness inside her upper innerthighs. On exam she is very uncomfortable and has a hard time moving around due to pain. She does have right lower extremity weakness likely secondary to pain and cannot ambulate due to pain. She hasbeen getting around the house with the aid of her . MRI shows acute on chronic changes in her Lumbar spine. Neurosurgery was consulted due to the amount of pain she is in and her limited mobility they will admit her for surgery and ongoing pain management. She has tried several different pain regimes without much relief. The visit findings, diagnosis, and care plan were discussed with the patient. Jin Diaz PA 05/08/21601 documented in this encounter Miscellaneous Notes * Plan of Care - Nicci Bassett RN [...] applicable: [X] Yes CPG GOAL OUTCOME EVALUATION: * Plan of Care - Yulissa Elkins RN [...] applicable: [X] N/A CPG GOAL OUTCOME EVALUATION: * Initial Assessments - Mecca Nixon RN - [...] COVID test: Lab Results Component Value Date [id number] Not Detected 05/07/2021 Past medical History: Past [...] pain management, pending PT OT mobility assessment postop Current Functional Ability: Assistive Equipment, Assistive Person Functional Status Prior to Admission: Assistive Person Home Environment: Others in the home: spouse. Current Living Arrangements: home/apartment/condo. Accessibility Concerns:2 EFREN then all one level ranch. Current DME: none Home Address confirmed as: [address] [place] [id number] Social & Family Supports: All names listed below confirmed with patient as current and correct NO: [phone] is incorrect: Extended Emergency Contact Information Primary Emergency Contact: Marcus Estrella [facility] [place] Relation: Spouse Patient ceel Number: [phone] Current Care Provided by: self Provides Primary [...] alcohol?: No Health/Prescription Coverage: Primary Insurance: MEDICARE RAILROAD Payor: MEDICARE [employer] / Plan: MEDICARE RAILROAD PART A&B / Product Type: *No Product type* / Secondary Insurance: AARP SUPPLEMENT Prescription Coverage: Yes Preferred Pharmacy: [facility] [place], [place] - [address] [facility] [phone] [facility] [address] [facility] [address] [facility] - [place], [place] - [address] [id number] [place] Status: Patient is a : No Primary Care Provider: Patricio Gabriel MD [phone] Patient/Caregiver Goals of Treatment: return home with support of and home care; would prefer home care to inpt rehab Potential Needs for Transition of Care: durable medical equipment, home health care Agency Referrals: The Patient has been provided a list of Home Health Agencies/DME vendors which serve their preferred geographic area. A letter describing our affiliations was reviewed with them and they were educated about their right to choose where referrals are placed. Provided patient with [facility] Star Quality Rating for Home care hand out. Patient requests referral to [facility]. PHONE: [phone] FAX: [phone] Expected date of discharge: 05/10/21. Referral routed to the [employer] for matching with agency/vendor and to provide [...] planning. Lan Nixon RN BSN CM Neurology Cash Management AssociateProject Manager Senior of Care Management Pager [phone] * Plan of Care - Nicci Bassett RN [...] applicable: [X] No CPG GOAL OUTCOME EVALUATION: * Plan of Care - Prerna Youngblood RN [...] Pt sleeps between care. Medications given per MAR, assessment as filed. Will continue to monitor [...] applicable: [X] N/A CPG GOAL OUTCOME EVALUATION: * Op Note - Nancy Fountain MD - 05/08/2021 1:10 PM EST [facility] [place] Patient Name: Yesi Estrella : [id number] MR#: [id number] Case Date: 05/08/2021 Surgeon: Surgeon(s) and Role: [...] right ankle weakness, and back pain. She presentedto the emergency department, and an MRI of [...] the lumbar spine, no type alirio was needed. The patient was brought back to the operating by anesthesia. General endotracheal anesthesia was induced without complication. A Lacy was placed. The patient was positioned prone on a Umberto frame, with arms in superman position. All pressure points were padded, particular attention was paid to the eyes. Her prior lumbar incision was clearly visible. C-arm was brought in, crosstable imaging was used to localize our incision to overlying the L5-S1 discitis. The patient was then prepped and andrey ped in the usual sterile fashion. A timeout was undertaken. 2 g of cefazolin were administered intravenously. The skin was anesthetized with 1% lidocaine with 1 to 200;000 parts epinephrine. The skinwas opened sharply with a 10 blade down to the level of the fascia. The Bovie was used to expose the lamina and SP of L5 and S1 on the right, in subperiosteal fashion. The wounds retractor was now placed, and we were able to identify the trailing edge of the L 5 lamina using a curette. A 4 Penfieldwas placed in this location, and repeat x-ray was made with the C arm to confirm the level. We alsotook an x-ray with an Darien under the lamina of L4. Once we [...] some disc under microscopic vision. We then continued with our foraminotomy laterally until I could clearly identify the exiting nerveroot of S1. We working underneath this root with a downgoing curette we evacuated further pieces of disc. We then explored the disc space at the superior endplate of S1. We could see some adherent disc fragments here, but were not able to find a free fragment which we had expected to see based on the MRI. At this point, we used a right angle probe, and swept behind the PLL and above the vertebralbody of 5. One could see that there [...] Once were satisfied with her discectomy, a Darien was used to feel all around the nerve root to confirm that the root was well decompressed. We then copiously irrigated the entire incision. 2 pieces of thrombin Gelfoam were used for hemostasis over the nerve root and epiduralspace. We then delivered Depo-Medrol in the incision. The microscope was removed, and the procedureclosed in layered fashion. Interrupted 0 Vicryls were used for the fascia, interrupted 2-0 Vicryl'swere used for the deep dermal layer, and the skin was closed with hitesh. At the end of the case, all counts were correct. I was present for the entire procedure. Surgical Infection Prevention Bundle Used? N/A Attestation: Case Date: 05/08/2021 I was present and I participated during the entire procedure (does not need to include opening and closing). Nancy Fountain MD 05/08/2021 * Brief Op Note - Luis Fernando Luz MD - 05/08/2021 12:32 PM EST Brief Operative Note Patient Name: Yesi Estrella : [id number] MR#: [id number] Case Date: 05/08/2021 Surgeon: Surgeon(s) and Role: [...] Name Priority Date/Time Associated Diagnosis Comments HC URINE CULTURE Routine 05/10/2021 8:27 AM EST COVID-19 PCR Routine 05/10/2021 6:04 AM EST HEMOGRAM Routine 05/10/2021 6:03 AM EST DIFFERENTIAL, AUTOMATED Routine 05/10/2021 6:03 AM EST HC CBC,PLT & AUTO DIFF Routine 05/10/2021 6:03 AM EST HC VENIPUNCTURE Routine 05/10/2021 6:03 AM EST HEMOGRAM Routine 05/09/2021 5:55 AM EST DIFFERENTIAL, AUTOMATED Routine 05/09/2021 5:55 AM EST HC CBC,PLT & AUTO DIFF Routine 05/09/2021 5:55 AM EST HC VENIPUNCTURE Routine 05/09/2021 5:55 AM EST XR FLUORO NO RAD <1HR - OR USE Routine 05/08/2021 12:44 PM EST MICROSCOPE USE Routine 05/08/2021 10:30 AM EST Microsurg Techniques, Req Oper Microscope ([id number]) 05/08/2021 9:16 AM EST R L5-S1 disc herniation Dominique W/O Facetec Foramot/Dskc / Vrt Seg, Lumbar ([id number]) 05/08/2021 9:16 AM EST R L5-S1 disc herniation LAMINECTOMY LUMBAR, DECOMPRESSION, 1 OR 2 SEGMENTS Routine 05/08/2021 8:21 AM EST HEMOGRAM Routine 05/08/2021 6:44 AM EST DIFFERENTIAL, AUTOMATED Routine 05/08/2021 6:44 AM EST HC CBC,PLT & AUTO DIFF Routine 05/08/2021 6:44 AM EST HC VENIPUNCTURE Routine 05/08/2021 6:44 AM EST URINE HOLD Routine 05/08/2021 12:31 AM EST HC URINE CULTURE Routine 05/08/2021 12:3 1 AM EST TYPE AND SCREEN VALIDITY Routine 05/07/2021 4:50 PM EST ABORH RECHECK STATUS Routine 05/07/2021 4:50 PM EST HEMOGRAM Routine 05/07/2021 4:50 PM EST DIFFERENTIAL, AUTOMATED Routine 05/07/2021 4:50 PM EST ABO/RH TYPING Routine 05/07/2021 4:50 PM EST HC CBC,PLT & AUTO DIFF Routine 05/07/2021 4:50 PM EST ANTIBODY SCREEN Routine 05/07/2021 4:50 PM EST HC ABO-MICROTITER Routine 05/07/2021 4:5 0 PM EST BASIC METABOLIC PANEL Routine 05/07/2021 4:50 PM EST RAPID COVID-19 PCR ([facility]/APD/[facility]) STAT 05/07/2021 3:42 PM EST MRI LUMBAR SPINE WITHOUT CONTRAST STAT 05/07/2021 2:03 PM EST documented in this encounter Results * Urine culture Clean Catch Urine (05/10/2021 8:27 AM EST) Urine Culture No growth (Less than 1,000 cfu/ml). [facility] Clean Catch Urine 05/10/2021 8:27 AM EST 05/10/2021 8:49 AM EST Narrative Resulting Agency Comment Spec In Lab Nancy Fountain MD MICROBIOLOGY - GENER AL ORDERABLES [facility] [place] [address] * COVID-19 PCR (05/10/2021 6:04 AM EST) SARS-CoV-2 RNA Not Detected Not Detected [facility] Comment: This result should be interpreted in combination with the clinical observations, patient history and epidemiological information in making a final diagnosis. For testing of asymptomatic individuals, assay performance characteristics and clinical utility have not been evaluated. Testing for SARS-CoV-2 (Severe acute respiratory syndrome coronavirus 2, formerly known as 2019 novel coronavirus or 2019-nCoV) to aid in the diagnosis of COVID-19 is performed using the EPV SOLAR m SARS-CoV-2 Assay as authorized by the FDA Emergency Use Authorization (EUA). This EUA assay is intended for In-vitro Diagnostic (IVD) use with respiratory specimens such as nasopharyngeal swabs collected from individuals during the acute phase of infection. This assay is performed based on the instructions for use provided by [employer] and additional guidance provided by [facility] and FDA. Testing is performed in the [facility] Laboratory within the Department of Pathology and Laboratory Medicine at [facility], certified under the Clinical Laboratory Improvement Amendments of 1988 (CLIA), 42 U.S.C. 263a, to perform high complexity tests. Assay performance has been verified according to clinical laboratory regulatory requirements for use with specimens collected from individuals suspected of COVID-19. Test results are provided above. A result of Not Detected indicates that the viral RNA target is not present above the limit of detection, but does not preclude SARS-CoV-2 infection. False negative results may occur if a specimen is improperly collected, transported or handled; if amplification inhibitors are present; or if inadequate numbers of viral particles are present in the specimen. When a diagnostic test is negative, the possibility of a false negative result should be considered in the context of a patient's recent exposures and the presence of clinical signs and symptoms consistent with COVID-19. A result of Detected indicates that RNA from SARS-CoV-2 was detected and the patient is infected. As required or requested by public health authorities, positive specimens may be sent for additional testing. Positive and negative predictive values for this test are highly dependent on disease prevalence. A result of Invalid indicates that neither the viral RNA targets nor the internal control target was detected. An invalid result suggests the presence of inhibitors. Recollection and re-testing is recommended in the case of an invalid result. CDC COVID-19 criteria for testing on human specimens and clinical management guidance information are available at the CDC Coronavirus Disease 2019 (COVID-19) webpage under Information for Healthcare Professionals (https://www.cdc.gov/coronavirus/2019-ncov/hcp/index.html) Additional information about this and other EUA tests can be found in provider and patient fact sheets at the following FDA website: https://www.fda.gov/medical-devices/behwqrwuvzr-yjxubak-6927-izxcr-44-yutbaadwc- use-a wogwpectmvxnp-tbwikjl-jrakwcu/hfqkr-hevsxpfdhgp-xfek SARS-CoV-2 RNA Source [employer] [facility] Nasopharyngeal Swab 05/10/19 6:04 AM EST 05/10/2021 8:05 AM EST Comment:Symptoms->Surveillan ce Narrative Resulting Agency Comment Spec In Lab Nancy Fountain MD MOLECULAR ORDERABLES Performing Organization Address City/State/[facility] Co de Phone Number [facility] [place] [address] * (ABNORMAL) Differential, Automated (05/10/2021 6:03 AM EST) Neutrophil % 74.8 % [facility] Neutrophil Absolute 8.10(H) 1.70 - 6.10 x10(3)/mc L [facility] Lymph % 16.5 % [facility] Lymphocytes Abs 1.8 0.9 - 3.2 x10(3)/mc L [facility] Monocyte % 7.4 % [facility] Monocyte Abs 0.8 0.3 - 0.9 x10(3)/mc L [facility] Eos % 0.6 % [facility] Eosinophils Abs 0.1 0.0 - 0.4 x10(3)/mc L [facility] Basophil % 0.2 % [facility] Baso Absolute 0.0 0.0 - 0.1 x10(3)/mc L [facility] Immature Gran % 0.50 % [facility] Comment: Immature granulocytes(IG's)percentage and absolute count will include metamyelocytes, myelocytes, and promyelocytes. Blood smears from CBCs yielding IG's will be scanned manually for concordance. If this scan disagrees with the automated IG or if promyelocytes are noted, a manual differential will be performed. Immature Gran Absolute 0.05(H) 0.00 - 0.04 x10(3)/mc L [facility] Blood 05/10/2021 6:03 AM EST 05/10/2021 6:21 AM EST Narrative Resulting Agency Comment Spec In Lab Masha Grayson MD HEMATOLOGY ORDERABLE S [facility] [place] [address] * (ABNORMAL) Hemogram (05/10/2021 6:03 AM EST) White Blood Cell 10.8(H) 4.0 - 9.5 x10(3)/mc L [facility] Red Blood Cell 3.57(L) 4.00 - 5.21 x10(6)/mc L [facility] Hemoglobin 11.8 11.7 - 15.5 g/dL [facility] Hematocrit 34.3(L) 35.7 - 45.8 % [facility] Mean Cell Volume 96.1(H) 82.6 - 94.4 fL [facility] Mean Cell Hemoglobin 33.1(H) 27.1 - 32.0 pg [facility] Mean Cell Hemoglobin Concentration 34.4 31.7 - 35.0 g/dL [facility] Platelet 174 145 - 357 x10(3)/mc L [facility] RDW Standard Deviation 47.1(H) 37.0 - 46.0 fL [facility] RDW coefficient of variation 13.3 11.5 - 14.1 % [facility] Mean Platelet Volume 10.3 7.6 - 12.9 fL [facility] NRBC% auto 0.0 % [facility] NRBC Absolute 0.000 0.000 - 0.000 x10(3)/mc L [facility] Blood 05/10/2021 6:03 AM EST 05/10/2021 6:21 AM EST Narrative Resulting Agency Comment Spec In Lab Masha Grayson MD HEMATOLOGY ORDERABLE S [facility] [place] [address] * Basic Metabolic Panel (non-fasting) (05/10/2021 6:03 AM EST) Glucose 180 65 - 199 mg/dL [facility] Comment:Diabetes: >=200 mg/d L plus symptoms Blood Urea Nitrogen 12 8 - 18 mg/dL [facility] Creatinine 0.70 0.70 - 1.20 mg/dL [facility] Sodium 139 135 - 145 mmol/L [facility] Potassium 3.9 3.5 - 5.0 mmol/L [facility] Comment: Please note: ??Patients with WBC >100,000 may have falsely elevated Potassium levels. ??For accurate Potassium quantification in these patients send serum separator tube (gold top) for subsequent determinations. ??Contact the Clinical Chemistry Laboratory if there are any questions. Chloride 103 98 - 107 mmol/L [facility] Carbon Dioxide 26 22 - 31 mmol/L [facility] Anion Gap 10 5 - 15 mmol/L [facility] Calcium 8.8 8.5 - 10.5 mg/dL [facility] Est Glomerular Filtration Rate 87 >=60 mL/min/1. 73 m?? [facility] Comment: This patient? s estimated glomerular filtration rate (eGFR) is between 87 mL/min/1.73 m2 (patients with less muscle mass) and 101 mL/min/1.73 m2 (patients with more muscle mass) as determined by the CKD-EPI equation. Assessment of eGFR is not appropriate when creatinine concentrations are rapidly changing. For clinical decisions where creatinine clearance will affect therapy, a 24-hour urine creatinine clearance may be advised. Assignment of CKD stage 1 - 5 for patients with an eGFR near the transition point between stages may be based on clinical assessment of muscle mass and symptoms in addition to eGFR. Blood 05/10/2021 6:03 AM EST 05/10/2021 6:21 AM EST Narrative Resulting Agency Comment Spec In Lab Nancy Fountain MD CHEMISTRY ORDERABLES [facility] [place] [place] [address] * (ABNORMAL) Differential, Automated (05/09/2021 5:55 AM EST) Neutrophil % 84.6 % [facility] Neutrophil Absolute 11.14(H) 1.70 - 6.10 x10(3)/mc L [facility] Lymph % 8.7 % [facility] Lymphocytes Abs 1.2 0.9 - 3.2 x10(3)/mc L [facility] Monocyte % 6.0 % [facility] Monocyte Abs 0.8 0.3 - 0.9 x10(3)/mc L [facility] Eos % 0.0 % [facility] Eosinophils Abs 0.0 0.0 - 0.4 x10(3)/mc L [facility] Basophil % 0.1 % [facility] Baso Absolute 0.0 0.0 - 0.1 x10(3)/mc L [facility] Immature Gran % 0.60 % [facility] Comment: Immature granulocytes(IG's)percentage and absolute count will include metamyelocytes, myelocytes, and promyelocytes. Blood smears from CBCs yielding IG's will be scanned manually for concordance. If this scan disagrees with the automated IG or if promyelocytes are noted, a manual differential will be performed. Immature Gran Absolute 0.08(H) 0.00 - 0.04 x10(3)/mc L [facility] Blood 05/09/2021 5:55 AM EST 05/09/2021 6:16 AM EST Narrative Resulting Agency Comment Spec In Lab Masha Grayson MD HEMATOLOGY ORDERABLE S [facility] [place] [place] [address] * (ABNORMAL) Hemogram (05/09/2021 5:55 AM EST) White Blood Cell 13.2(H) 4.0 - 9.5 x10(3)/mc L [facility] Red Blood Cell 3.84(L) 4.00 - 5.21 x10(6)/mc L [facility] Hemoglobin 12.8 11.7 - 15.5 g/dL [facility] Hematocrit 36.4 35.7 - 45.8 % [facility] Mean Cell Volume 94.8(H) 82.6 - 94.4 fL [facility] Mean Cell Hemoglobin 33.3(H) 27.1 - 32.0 pg [facility] Mean Cell Hemoglobin Concentration 35.2(H) 31.7 - 35.0 g/dL [facility] Platelet 184 145 - 357 x10(3)/mc L [facility] RDW Standard Deviation 44.3 37.0 - 46.0 fL [facility] RDW coefficient of variation 12.9 11.5 - 14.1 % [facility] Mean Platelet Volume 10.3 7.6 - 12.9 fL [facility] NRBC% auto 0.0 % [facility] NRBC Absolute 0.000 0.000 - 0.000 x10(3)/mc L [facility] Blood 05/09/2021 5:55 AM EST 05/09/2021 6:16 AM EST Narrative Resulting Agency Comment Spec In Lab Masha Grayson MD HEMATOLOGY ORDERABLE S [facility] [place] [place] [address] * Basic Metabolic Panel (non-fasting) (05/09/2021 5:55 AM EST) Glucose 198 65 - 199 mg/dL [facility] Comment:Diabetes: >=200 mg/d L plus symptoms Blood Urea Nitrogen 12 8 - 18 mg/dL [facility] Creatinine 0.72 0.70 - 1.20 mg/dL [facility] Sodium 137 135 - 145 mmol/L [facility] Potassium 4.2 3.5 - 5.0 mmol/L [facility] Comment: Please note: ??Patients with WBC >100,000 may have falsely elevated Potassium levels. ??For accurate Potassium quantification in these patients send serum separator tube (gold top) for subsequent determinations. ??Contact the Clinical Chemistry Laboratory if there are any questions. Chloride 104 98 - 107 mmol/L [facility] Carbon Dioxide 22 22 - 31 mmol/L [facility] Anion Gap 11 5 - 15 mmol/L [facility] Calcium 8.6 8.5 - 10.5 mg/dL [facility] Est Glomerular Filtration Rate 84 >=60 mL/min/1. 73 m?? [facility] Comment: This patient? s estimated glomerular filtration rate (eGFR) is between 84 mL/min/1.73 m2 (patients with less muscle mass) and 98 mL/min/1.73 m2 (patients with more muscle mass) as determined by the CKD-EPI equation. Assessment of eGFR is not appropriate when creatinine concentrations are rapidly changing. For clinical decisions where creatinine clearance will affect therapy, a 24-hour urine creatinine clearance may be advised. Assignment of CKD stage 1 - 5 for patients with an eGFR near the transition point between stages may be based on clinical assessment of muscle mass and symptoms in addition to eGFR. Blood 05/09/2021 5:55 AM EST 05/09/2021 6:16 AM EST Narrative Resulting Agency Comment Spec In Lab Nancy Fountain MD CHEMISTRY ORDERABLES [facility] [place] [address] * XR Fluoro No Rad <1Hr - OR Use (05/08/2021 12:44 PM EST) Narrative Dicom, Auditing User - 05/08/2021 12:45 PM EST This exam is auto-finalizing. No interpretation was done. Nancy Fountain MD IMG FLUORO ORDERABLE S * Differential, Automated (05/08/2021 6:44 AM EST) Neutrophil % 51.5 % [facility] Neutrophil Absolute 3.85 1.70 - 6.10 x10(3)/[facility] Lymph % 38.3 % [facility] Lymphocytes Abs 2.9 0.9 - 3.2 x10(3)/[facility] Monocyte % 7.0 % [facility] Monocyte Abs 0.5 0.3 - 0.9 x10(3)/[facility] Eos % 2.8 % [facility] Eosinophils Abs 0.2 0.0 - 0.4 x10(3)/[facility] Basophil % 0.3 % [facility] Baso Absolute 0.0 0.0 - 0.1 x10(3)/[facility] Immature Gran % 0.10 % [facility] Comment: Immature granulocytes(IG's)percentage and absolute count will include metamyelocytes, myelocytes, and promyelocytes. Blood smears from CBCs yielding IG's will be scanned manually for concordance. If this scan disagrees with the automated IG or if promyelocytes are noted, a manual differential will be performed. Immature Gran Absolute 0.01 0.00 - 0.04 x10(3)/[facility] Blood 05/08/2021 6:44 AM EST 05/08/2021 6:56 AM EST Narrative Resulting Agency Comment Spec In Lab Masha Grayson MD HEMATOLOGY ORDERABLE S Performing Organization Address City/[facility]/ZIP Co de Phone Number [facility] [place] [place] [address] * (ABNORMAL) Hemogram (05/08/2021 6:44 AM EST) White Blood Cell 7.5 4.0 - 9.5 x10(3)/mc L [facility] Red Blood Cell 4.02 4.00 - 5.21 x10(6)/mc L [facility] Hemoglobin 13.3 11.7 - 15.5 g/dL [facility] Hematocrit 38.7 35.7 - 45.8 % [facility] Mean Cell Volume 96.3(H) 82.6 - 94.4 fL [facility] Mean Cell Hemoglobin 33.1(H) 27.1 - 32.0 pg [facility] Mean Cell Hemoglobin Concentration 34.4 31.7 - 35.0 g/dL [facility] Platelet 191 145 - 357 x10(3)/mc L [facility] RDW Standard Deviation 46.2(H) 37.0 - 46.0 [facility] RDW coefficient of variation 13.1 11.5 - 14.1 % [facility] Mean Platelet Volume 10.0 7.6 - 12.9 [facility] NRBC% auto 0.0 % [facility] NRBC Absolute 0.000 0.000 - 0.000 x10(3)/mc L [facility] Blood 05/08/2021 6:44 AM EST 05/08/2021 6:56 AM EST Narrative Resulting Agency Comment Spec In Lab Masha Grayson MD HEMATOLOGY ORDERABLE S [facility] [place] [place] [address] * (ABNORMAL) Basic Metabolic Panel (non-fasting) (05/08/2021 6:44 AM EST) Glucose 106 65 - 199 mg/dL [facility] Comment:Diabetes: >=200 mg/d L plus symptoms Blood Urea Nitrogen 14 8 - 18 mg/dL [facility] Creatinine 0.84 0.70 - 1.20 mg/dL [facility] Sodium 134(L) 135 - 145 mmol/L [facility] Potassium 3.8 3.5 - 5.0 mmol/L [facility] Comment: Please note: ??Patients with WBC >100,000 may have falsely elevated Potassium levels. ??For accurate Potassium quantification in these patients send serum separator tube (gold top) for subsequent determinations. ??Contact the Clinical Chemistry Laboratory if there are any questions. Chloride 101 98 - 107 mmol/L [facility] Carbon Dioxide 26 22 - 31 mmol/L [facility] Anion Gap 7 5 - 15 mmol/L [facility] Calcium 8.7 8.5 - 10.5 mg/dL [facility] Est Glomerular Filtration Rate 70 >=60 mL/min/1. 73 m?? [facility] Comment: This patient? s estimated glomerular filtration rate (eGFR) is between 70 mL/min/1.73 m2 (patients with less muscle mass) and 81 mL/min/1.73 m2 (patients with more muscle mass) as determined by the CKD-EPI equation. Assessment of eGFR is not appropriate when creatinine concentrations are rapidly changing. For clinical decisions where creatinine clearance will affect therapy, a 24-hour urine creatinine clearance may be advised. Assignment of CKD stage 1 - 5 for patients with an eGFR near the transition point between stages may be based on clinical assessment of muscle mass and symptoms in addition to eGFR. Blood 05/08/2021 6:44 AM EST 05/08/2021 6:56 AM EST Narrative Resulting Agency Comment Spec In Lab Nancy Fountain MD CHEMISTRY ORDERABLES [facility] [place] [place] [address] * Urine Hold (05/08/2021 12:31 AM EST) Hold, Urine Sample in lab. [facility] Urine Micro Spec / Unknown 05/08/2021 12:31 AM EST 05/08/2021 12:55 AM EST Masha Grayson MD URINE ORDERABLES Performing Organization Address [facility] Co de Phone Number [facility] [place] [address] * (ABNORMAL) Urine culture Clean Catch Urine (05/08/2021 12:31 AM EST) [facility] Urine Culture Greater than 100,000 cfu/ml Normal mucosal pastor Susceptibilit y testing not routinely performed for Coagulase Negative Staphylococcu s species and other Gram Positive organisms from urine. (A) [facility] Urine 05/08/2021 12:3 1 AM EST 05/08/2021 2:11 AM EST Narrative Resulting Agency Comment Spec In Lab Nancy Fountain MD MICROBIOLOGY - GENER AL ORDERABLES Performing Organization Address [facility] Co de Phone Number [facility] [place] [place] [address] * Type and Screen Validity (05/07/2021 4:50 PM EST) T&S only valid at [facility] Comment:This Type and Screen result is only valid at the [facility] Blood 05/07/2021 4:50 PM EST 05/07/2021 4:59 PM EST Narrative Resulting Agency Comment Spec In Lab Masha Grayson MD BLOOD BANK LAB ORDER IZZY Performing Organization Address [facility] Co de Phone Number [facility] [place] [place] [address] * ABORH Recheck Status (05/07/2021 4:50 PM EST) ABOR[facility] Type Recheck Completed [facility] Blood 05/07/2021 4:50 PM EST 05/07/2021 4:59 PM EST Narrative Resulting Agency Comment Spec In Lab Masha Grayson MD BLOOD BANK LAB ORDER IZZY [facility] [place] [place] [address] * Differential, Automated (05/07/2021 4:50 PM EST) Neutrophil % 55.6 % [facility] Neutrophil Absolute 5.07 1.70 - 6.10 x10(3)/[facility] Lymph % 34.1 % [facility] Lymphocytes Abs 3.1 0.9 - 3.2 x10(3)/[facility] Monocyte % 7.6 % [facility] Monocyte Abs 0.7 0.3 - 0.9 x10(3)/[facility] Eos % 2.1 % [facility] Eosinophils Abs 0.2 0.0 - 0.4 x10(3)/[facility] Basophil % 0.4 % [facility] Baso Absolute 0.0 0.0 - 0.1 x10(3)/[facility] Immature Gran % 0.20 % [facility] Comment: Immature granulocytes(IG's)percentage and absolute count will include metamyelocytes, myelocytes, and promyelocytes. Blood smears from CBCs yielding IG's will be scanned manually for concordance. If this scan disagrees with the automated IG or if promyelocytes are noted, a manual differential will be performed. Immature Gran Absolute 0.02 0.00 - 0.04 x10(3)/[facility] Blood 05/07/2021 4:50 PM EST 05/07/2021 5:02 PM EST Narrative Resulting Agency Comment Spec In Lab Masha Grayson MD HEMATOLOGY ORDERABLE S [facility] [place] [place] [address] * (ABNORMAL) Hemogram (05/07/2021 4:50 PM EST) White Blood Cell 9.1 4.0 - 9.5 x10(3)/mc L [facility] Red Blood Cell 4.48 4.00 - 5.21 x10(6)/mc L [facility] Hemoglobin 14.6 11.7 - 15.5 g/dL [facility] Hematocrit 43.1 35.7 - 45.8 % [facility] Mean Cell Volume 96.2(H) 82.6 - 94.4 fL [facility] Mean Cell Hemoglobin 32.6(H) 27.1 - 32.0 pg [facility] Mean Cell Hemoglobin Concentration 33.9 31.7 - 35.0 g/dL [facility] Platelet 230 145 - 357 x10(3)/mc L [facility] RDW Standard Deviation 46.2(H) 37.0 - 46.0 [facility] RDW coefficient of variation 13.0 11.5 - 14.1 % [facility] Mean Platelet Volume 10.3 7.6 - 12.9 [facility] NRBC% auto 0.0 % [facility] NRBC Absolute 0.000 0.000 - 0.000 x10(3)/mc L [facility] Blood 05/07/2021 4:50 PM EST 05/07/2021 5:02 PM EST Narrative Resulting Agency Comment Spec In Lab Masha Grayson MD HEMATOLOGY ORDERABLE S [facility] [place] [place] [address] * Antibody screen (05/07/2021 4:50 PM EST) Ab Screen Interp Negative [facility] Expires at [id number] on: 05/10/2021 [facility] Blood 05/07/2021 4:50 PM EST 05/07/2021 4:59 PM EST Narrative Resulting Agency Comment Spec In Lab Masha Grayson MD BLOOD BANK LAB ORDER IZZY [facility] [place] [place] [address] * ABO/Rh Typing (05/07/2021 4:50 PM EST) ABORH Type O Pos [facility] Blood 05/07/2021 4:50 PM EST 05/07/2021 4:59 PM EST Narrative Resulting Agency Comment Spec In Lab Masha Grayson MD BLOOD BANK LAB ORDER IZZY [facility] [place] [address] * Basic Metabolic Panel (non-fasting) (05/07/2021 4:50 PM EST) [facility] Glucose 111 65 - 199 mg/dL [facility] Comment:Diabetes: >=200 mg/d L plus symptoms Blood Urea Nitrogen 15 8 - 18 mg/dL [facility] Creatinine 0.84 0.70 - 1.20 mg/dL [facility] Sodium 139 135 - 145 mmol/L [facility] Potassium 4.4 3.5 - 5.0 mmol/L [facility] Comment: Please note: ??Patients with WBC >100,000 may have falsely elevated Potassium levels. ??For accurate Potassium quantification in these patients send serum separator tube (gold top) for subsequent determinations. ??Contact the Clinical Chemistry Laboratory if there are any questions. Chloride 103 98 - 107 mmol/L [facility] Carbon Dioxide 26 22 - 31 mmol/L [facility] Anion Gap 10 5 - 15 mmol/L [facility] Calcium 9.4 8.5 - 10.5 mg/dL [facility] Est Glomerular Filtration Rate 70 >=60 mL/min/1. 73 m?? [facility] Comment: This patient? s estimated glomerular filtration rate (eGFR) is between 70 mL/min/1.73 m2 (patients with less muscle mass) and 81 mL/min/1.73 m2 (patients with more muscle mass) as determined by the CKD-EPI equation. Assessment of eGFR is not appropriate when creatinine concentrations are rapidly changing. For clinical decisions where creatinine clearance will affect therapy, a 24-hour urine creatinine clearance may be advised. Assignment of CKD stage 1 - 5 for patients with an eGFR near the transition point between stages may be based on clinical assessment of muscle mass and symptoms in addition to eGFR. Blood 05/07/2021 4:50 PM EST 05/07/2021 5:02 PM EST Narrative Resulting Agency Comment Spec In Lab Nancy Fountain MD CHEMISTRY ORDERABLES Performing Organization Address City/State/[facility] Co de Phone Number [facility] [place] [address] * COVID-19 PCR (05/07/2021 3:42 PM EST) SARS-CoV-2 RNA (Rapid) Not Detected Not Detected [facility] Comment: This result should be interpreted in combination with the clinical observations, patient history and epidemiological information. For testing of asymptomatic individuals, assay performance characteristics and clinical utility have not been evaluated. Testing for SARS-CoV-2 (Severe acute respiratory syndrome coronavirus 2, formerly known as 2019 novel coronavirus or 2019-nCoV) to aid in the diagnosis of COVID-19 is performed using the Simplexa COVID-19 Direct Assay by [employer] as authorized by the FDA issued Emergency Use Authorization (EUA). This assay is intended for In-vitro Diagnostic (IVD) use with nasopharyngeal swabs collected from individuals meeting the CDC criteria for testing. The assay is performed based on the instructions for use and additional guidance provided by the FDA. Testing is performed in the Microbiology Laboratory within the Department of Pathology and Laboratory Medicine at [facility], certified under the Clinical Laboratory Improvement Amendments of 1988 (CLIA), 42 U.S.C. section 263a, to perform high complexity tests. Assay performance has been verified according to clinical laboratory regulatory requirements. Test results are provided above. A result of Not Detected indicates that the viral RNA target is not present but does not preclude SARS-CoV-2 infection. False negative results may occur if a specimen is improperly collected, transported or handled; if amplification inhibitors are present; or if inadequate numbers of viral particles are present in the specimen. A result of Detected suggests a current or recent infection and the patient is presumed to be infected. Positive and negative predictive values for this test are highly dependent on disease prevalence. A result of Invalid indicates the inability to conclusively determine the presence or absence of SARS-CoV-2 RNA in the sample which can be due to a variety of factors. Recollection is recommended in the case of an invalid result. CDC COVID-19 criteria for testing on human specimens and clinical management guidance information are available at the CDC Coronavirus Disease 2019 (COVID-19) webpage under Information for Healthcare Professionals (https://www.cdc.gov/coronavirus/2019-ncov/hcp/index.html). Additional information about this and other EUA tests can be found in provider and patient fact sheets at the following FDA website: https://www.fda.gov/medical-devices/cbbdrliujna-xnuuquw-0266-oelub-58-riugwfsaa- use-a ajdkfzekekrij-ajspiok-aufoijw/iwxoq-kaswavnclbi-dgup SARS-CoV-2 Source [employer] [facility] Nasopharyngeal Swab 05/07/19 3:42 PM EST 05/07/2021 5:16 PM EST Comment:Symptoms->Surveillan ce Narrative Resulting Agency Comment Spec In Lab Edith Granados MD MICROBIOLOGY - G ENERAL ORDERABLES [facility] [place] [place] [address] * MRI Lumbar Spine wo Contrast (Generic) (05/07/2021 2:03 PM EST) Anatomical Region Laterality Modality L-spine Magnetic Resonan ce Impressions 05/07/2021 2:16 PM EST 1. ??New right posterior paracentral L5-S1 disc extrusion with impingement of the right S1 nerve root. 2. ??Interval worsening of facet arthropathy at [...] who have questions please contact the health sub acute care nurse that requested your imaging first. ? Narrative 05/07/2021 2:16 PM EST EXAMINATION: MRI LUMBAR SPINE WO CONTRAST (GENERIC) CLINICAL HISTORY: Low back pain, prior surgery, new symptoms Right sided leg weakness cannot ambulate TECHNIQUE: MRI of the lumbar spine performed without intravenous contrast administration. COMPARISON: MRI of the lumbar spine of 01/02/2016 FINDINGS: There is straightening of the lumbar lordosis. There is grade I anterolisthesis of L4 4 with respect L5, slightly worsened when compared to the prior study. Vertebral body heights are normal. There is loss of disc space height at each level in the lumbar spine. Marrow signal is within normal limits with the exception of discogenic degenerative endplate changes, largely fatty about the L3-4 and L4-5 and L5-S1 disc spaces. The conus medullaris is of normal contour and signal characteristics terminating at the level of upper L2. There appears to have been a prior laminectomy at L4 and L5. At L1-2 there is mild bilateral facet arthropathy but no visible nerve root impingement. At L2-3 there is a minor circumferential disc bulge and mild bilateral facet arthropathy which combine to produce slight relative narrowing the spinal canal and minor bilateral neural foramen narrowing. At L3-4 there is a circumferential disc bulge with a superimposed left posterior paracentral and foraminal disc extrusion. This abnormal material is unchanged in appearance from the prior study. There is marked left subarticular recess stenosis with medial displacement of the descending left L4 nerve root, unchanged. The degree of neural foramen narrowing is mild. At L4-5 there is a asymmetric disc bulge larger on the left. There is marked bilateral facet arthropathy. These combine to produce marked narrowing of the subarticular recesses and mild left and mild/moderate right neural foramen narrowing. The subarticular recess narrowing is worsened since the prior study. At L5-S1 there is a right posterior paracentral disc extrusion with visible impingement of the right S1 nerve root. A component of this disc material may represent a sequestered fragment. This finding is new or substantially larger since the prior study. There is bilateral facet arthropathy and moderate to severe bilateral neural foramen narrowing this level, worsened since that present previously Procedure Note Hermann Villarreal MD - 05/07/2021 EXAMINATION: MRI LUMBAR SPINE WO CONTRAST (GENERIC) CLINICAL HISTORY: Low back pain, prior surgery, new symptoms Right sided leg weakness cannot ambulate TECHNIQUE: MRI of the lumbar spine performed without intravenous contrastadministration. COMPARISON: MRI of the lumbar spine of 01/02/2016 FINDINGS: There is straightening of the lumbar lordosis. There is grade Ianterolisthesis of L4 4 with respect L5, slightly worsened when compared to the priorstudy. Vertebral body heights are normal. There is loss of disc space height ateach level in the lumbar spine. Marrow signal is within normal limits withthe exception of discogenic degenerative endplate changes, largely fatty aboutthe L3-4 and L4-5 and L5-S1 disc spaces. The conus medullaris is of normalcontour and signal characteristics terminating at the level of upper L2. Thereappears to have been a prior laminectomy at L4 and L5. At L1-2 there is mild bilateral facet arthropathy but no visible nerveroot impingement. At L2-3 there is a minor circumferential disc bulge and mild bilateralfacet arthropathy which combine to produce slight relative narrowing the spinalcanal and minor bilateral neural foramen narrowing. At L3-4 there is a circumferential disc bulge with a superimposed leftposterior paracentral and foraminal disc extrusion. This abnormal material isunchanged in appearance from the prior study. There is marked left subarticularrecess stenosis with medial displacement of the descending left L4 nerve root, unchanged. The degree of neural foramen narrowing is mild. At L4-5 there is a asymmetric disc bulge larger on the left. There ismarked bilateral facet arthropathy. These combine to produce marked narrowing ofthe subarticular recesses and mild left and mild/moderate right neuralforamen narrowing. The subarticular recess narrowing is worsened since the priorstudy. At L5-S1 there is a right posterior paracentral disc extrusion withvisible impingement of the right S1 nerve root. A component of this disc materialmay represent a sequestered fragment. This finding is new or substantiallylarger since the prior study. There is bilateral facet arthropathy and moderateto severe bilateral neural foramen narrowing this level, worsened sincethat present previously IMPRESSION 1. New right posterior paracentral L5-S1 disc extrusion with impingementof the right S1 nerve root. 2. Interval worsening of facet arthropathy at L4-5 and L5-S1 withmarked bilateral subarticular recess narrowing at L4-5 and bilateral neuralforamen narrowing at L5-S1 Comment: The following findings are so common in people without low backpain that while we report their presence, they must be interpreted with cautionand in context of the clinical situation (Reference- Armandok Et Al, [id number]). Findings: (Prevalence in patients without low back pain), discdegeneration (decreased T2 signal, height loss, bulge) (91%), disc T2-signal loss(83%), disc height loss (56%), disc bulge (64%), disc protrusion (32%), annularfissure (38%). Thank you for letting us participate in the care of this patient. If youare a health care provider and have any questions regarding this report,please contact the number below. For patients who have questions please contactthe health sub acute care nurse that requested your imaging first. Edith Granados MD IMG MRI ORDERABL ES documented in this encounter Visit Diagnoses Not on filedocumented in this encounter Admitting Diagnoses Diagnosis Back pain Backache, unspecified documented in this encounter Administered Medications Inactive Administered Medications - up to 3 most recent administrations Medication Order MAR Action Action Date Dose Rate Site acetaminophen (Tylenol) tablet 650 mg 650 mg, Oral, EVERY 6 HOURS SCHEDULED, First dose on Fri05/07/21 at 1800, Until Discontinued Given 05/10/2021 1:24 PM EST 650 mg Given 05/10/2021 6:08 AM EST 650 mg Given 05/10/2021 12:13 AM EST 650 mg atenoloL (Tenormin) tablet 50 mg 50 mg, Oral, NIGHTLY, First dose (after last modification) on Fri05/08/21 at 0000, Until Discontinued, Routine Given 05/09/2021 9:13 PM EST 50 mg Given 05/07/2021 11:19 PM EST 50 mg bisacodyL (Dulcolax) suppository 10 mg 10 mg, Rectal, DAILY PRN, Starting on Fri05/07/21 at 1616, [...] constipation., Routine cyclobenzaprine (Flexeril) tablet 10 mg 10 mg, Oral, 3 TIMES DAILY PRN, Starting on Fri05/07/21 at 1616, Until Fri05/10/21 at 1743, Muscle spasms, Routine Given 05/10/2021 9:45 AM EST 10 mg Given 05/07/2021 10:56 PM EST 10 mg docusate sodium (Colace) capsule 100 mg 100 mg, Oral, 2 TIMES DAILY, First dose on Fri05/07/21 at 2100, Until Discontinued, Routine Given 05/10/2021 9:45 AM EST 100 mg Given 05/09/2021 9:13 PM EST 100 mg Given 05/09/2021 9:41 AM EST 100 mg gabapentin (Neurontin) capsule 300 mg 300 mg, Oral, 3 TIMES DAILY, First dose on Fri05/08/21 at 0030, Until Discontinued, Routine Given 05/10/2021 9:45 AM EST 300 mg Given 05/09/2021 9:13 PM EST 300 mg Given 05/09/2021 3:42 PM EST 300 mg gelatin adsorbable (Gelfoam) sponge ONCE PRN, Starting on Fri05/08/21 at 1018, Until Fri05/10/21 at 1743, Intra-Operative (Intra-Procedure) Given 05/08/2021 10:18 AM EST 2 each 19- Surgical Site labetaloL (Normodyne) (5 mg/mL) injection solution 10-20 mg 10-20 mg, Intravenous, EVERY [...] is less than 50 beats per minute., Routine lidocaine (Lidoderm) 5% patch 1 patch 1 patch, Transdermal, EVERY 24 HOURS, First dose on Fri05/07/21 at 1112, Until Discontinued, Apply patch(es) for 12 hours, and then remove for 12 hours., Routine Patch Applied 05/10/2021 11:35 AM EST 1 patch 08- Back Lower (Right) Patch Applied 05/09/2021 12:38 PM EST 1 patch 08- Back Lower (Right) Patch Applied 05/07/2021 11:19 AM EST 1 patch 08- Back Lower (Right) lidocaine (Lidoderm) topical patch REMOVAL Transdermal, EVERY 24 HOURS, First dose on Fri05/07/21 at 2310, Until Discontinued, Remove lidocaine 5% patch lidocaine (Xylocaine) 1% (10 mg/mL) injection 3 mg 3 mg (0.3 mL), Subcutaneous, ONCE PRN, 1 dose, Starting on Fri05/08/21 at 1938, Until Ghislaine 05/10/21 at 1743, for discomfort with PIV insertion, Recovery (Recovery-Hospital Unit), Routine lidocaine-EPINEPHrine (pf) (1.5% - 1:200,000) injection ONCE PRN, Starting on Fri05/08/21 at 0958, Until Ghislaine 05/10/21 at 1743, Intra-Operative (Intra-Procedure), Routine Given 05/08/2021 9:58 AM EST 7 mLs 19- Surgical Site lisinopriL (Zestril) tablet 10 mg 10 mg, Oral, NIGHTLY, First dose (after last modification) on Fri05/08/21 at 0000, Until Discontinued, Routine Given 05/09/2021 9:12 PM EST 10 mg Given 05/07/2021 11:19 PM EST 10 mg [...] magnesium hydroxide (Milk of Magnesia) (240 mg/mL) oral liquid 10 mL 10 mL, [...] ondansetron (pf) (Zofran) (2 mg/mL) injection 4-8 mg 4-8 mg, Intravenous, EVERY 8 HOURS PRN, Starting on Fri05/07/21 at 1616, Until Ghislaine 05/10/21 at 1743, Nausea, If multiple antiemetics are ordered, use ondansetron first, prochlorperazine second, and metaclopramide third. Start with 4mg and if ineffective in 30 minutes, give an additional 4mg ondansetron (Zofran) tablet 4-8 mg 4-8 mg, Oral, EVERY 8 HOURS PRN, Starting on 05/07/21 at 1616, Until Ghislaine 05/10/21 at 1743, Nausea, Vomiting, If multiple antiemetics are ordered, use ondansetron first, prochlorperazine second, and metaclopramide third. PO Preferred. If patient unable to take PO, may give IV if ordered. Start with 4mg and if ineffective in 45 minutes, give an additional 4mg, Routine oxyCODONE (Roxicodone) tablet 10 mg 10 mg, Oral, EVERY 4 HOURS PRN, Starting on Fri05/07/21 at 1618, Until Ghislaine 05/10/21 at 1743, Pain, severe pain (7-10), Routine Given 05/10/2021 4:34 AM EST 10 mg Given 05/10/2021 12:19 AM EST 10 mg Given 05/09/2021 2:04 PM EST 10 mg oxyCODONE (Roxicodone) tablet 5 mg 5 mg, Oral, EVERY 4 HOURS PRN, Starting on Fri05/07/21 at 1618, Until Fri05/10/21 at 1743, Pain, moderate pain (4-6), Routine Given 05/09/2021 9:41 AM EST 5 mg pantoprazole EC (Protonix) tablet 40 mg 40 mg, Oral, DAILY, First dose on Fri05/08/21 at 0900, Until Discontinued, DO NOT CRUSH OR OPEN, Routine Given 05/10/2021 9:45 AM EST 40 mg Given 05/09/2021 9:41 AM EST 40 mg polyethylene glycoL (Miralax) packet 17 g 17 g, Oral, DAILY PRN, Starting on Fri05/07/21 at [...] constipation., Routine senna-docusate (Pericolace) 8.6-50 mg per tablet 2 tablet 2 tablet, Oral, 2 TIMES DAILY, First dose on Fri05/07/21 at 2100, Until Discontinued, Routine Given 05/10/2021 9:45 AM EST 2 tablets Given 05/09/2021 9:12 PM EST 2 tablets Given 05/09/2021 9:41 AM EST 2 tablets sodium chloride 0.9 % (flush) (BD PosiFlush Normal Saline 0.9) flush 5 mL 5 mL, Intravenous, 2 TIMES DAILY, First dose on Fri05/08/21 at 2100, Until Discontinued, Recovery (Recovery-Hospital Unit), Routine Given 05/10/2021 9:48 AM EST 5 mLs Given 05/09/2021 9:14 PM EST 5 mLs Given 05/09/2021 9:43 AM EST 5 mLs sodium chloride 0.9 % (flush) (BD PosiFlush Normal Saline 0.9) flush 5-20 mL 5-20 mL, Intravenous, EVERY 1 MIN PRN, Starting on Fri05/08/21 at 1938, Until Ghislaine 05/10/21 at 1743, flush, Flush pertains to all indwelling lines. Flush per protocol found in the job aid using the link provided on this medication record., Recovery (Recovery-Hospital Unit), Routine thrombin (bovine) (Thrombin-Jmi) solution ONCE PRN, Starting on Fri05/08/21 at 1016, Until Ghislaine 05/10/21 at 1743, Intra-Operative (Intra-Procedure) Given 05/08/2021 10:16 AM EST 5,000 Units 19- Surgical Site documented in this encounter Active and Recently Administered Medications Times are shown in EST. Scheduled Medication Order 05/08/2021 05/09/2021 05/10/2021 acetaminophen (Tylenol) tablet 650 mg 650 mg, Oral, EVERY 6 HOURS SCHEDULED, First dose on Fri05/07/21 at 1800, Until Discontinued 0039 (Given - Provider: Can Dwyer RN)0558 (Given - Provider: Donna Shipman RN)0917 (MAY Hold - Provider: Admin Adt - Reason: Transfer to a Procedural area)1200 (Not Given - Provider: Prerna Youngblood RN - Reason: Patient/family refused)1330 (MAR Unhold - Provider: Gabriela Mena, RAFA)1334 (Given - Provider: Gabriela Mena RN)1850 (Given - Provider: Prerna Youngblood RN) 0039 (Given - Provider: Nicci Bassett RN)0601 (Given - Provider: Nicci Bassett RN)1238 (Given - Provider: Yulissa Elkins, RAFA)1820 (Given - Provider: Yulissa Elkins, RAFA) 0013 (Given - Provider: Nicci Bassett RN)0608 (Given - Provider: Nicci Bassett RN)1324 (Given - Provider: Yulissa Elkins, RAFA) atenoloL (Tenormin) tablet 50 mg 50 mg, Oral, NIGHTLY, First dose (after last modification) on Fri05/08/21 at 0000, Until Discontinued, Routine 0917 (MAY Hold - Provider: Admin Adt - Reason: Transfer to a Procedural area)1509 (MAY Unhold - Provider: Admin Adt)2100 (Not Given - Provider: Nicci Bassett RN - Reason: See comment - Comment: bp 98/53 hr 57) 2112 (Given - Provider: Nicci Bassett RN) docusate sodium (Colace) capsule 100 mg 100 mg, Oral, 2 TIMES DAILY, First dose on Fri05/07/21 at 2100, Until Discontinued, Routine 0900 (Not Given - Provider: Prerna Youngblood RN - Reason: Transfer to a Procedural area)0917 (MAY Hold - Provider: Admin Adt - Reason: Transfer to a Procedural area)1509 (MAY Unhold - Provider: Admin Adt)211 (Given - Provider: Nicci Bassett RN) 0941 (Given - Provider: Yulissa Elkins RN)211 (Given - Provider: Nicci Bassett RN) 0945 (Given - Provider: Yulissa Elkins RN) gabapentin (Neurontin) capsule 300 mg 300 mg, Oral, 3 TIMES DAILY, First dose on Fri05/08/21 at 0030, Until Discontinued, Routine 0039 (Given - Provider: Can Dwyer RN)0900 (Not Given - Provider: Prerna Youngblood RN - Reason: Transfer to a Procedural area)0917 (MAY Hold - Provider: Admin Adt - Reason: Transfer to a Procedural area)1509 (MAY Unhold - Provider: Admin Adt)1608 (Given - Provider: Prerna Youngblood RN)2113 (Given - Provider: Nicci Bassett RN) 0941 (Given - Provider: Yulissa Elkins RN)1542 (Given - Provider: Yulissa Elkins RN)2112 (Given - Provider: Nicci Bassett RN) 0945 (Given - Provider: Yulissa Elkins RN)1500 (Due - Provider: Admin Adt) lidocaine (Lidoderm) 5% patch 1 patch(Linked Group 1) 1 patch, Transdermal, EVERY 24 HOURS, First dose on Fri05/07/21 at 1112, Until Discontinued, Apply patch(es) for 12 hours, and then remove for 12 hours., Routine 0917 (MAY Hold - Provider: Admin Adt - Reason: Transfer to a Procedural area)1112 (Not Given - Provider: Prerna Youngblood RN - Reason: Patient/family refused)1509 (MAY Unhold - Provider: Admin Adt) 1238 (Patch Applied - Provider: Yulissa Elkins RN) 1135 (Patch Applied - Provider: Yulissa Elkins RN) lidocaine (Lidoderm) topical patch REMOVAL(Linked Group 1) Transdermal, EVERY 24 HOURS, First dose on Fri05/07/21 at 2310, Until Discontinued, Remove lidocaine 5% patch 0917 (MAY Hold - Provider: Admin Adt - Reason: Transfer to a Procedural area)1509 (MAY Unhold - Provider: Admin Adt)2310 (Patch Not Removed (add comment) - Provider: Nicci Bassett RN - Comment: no patch) 2310 (Patch Removed - Provider: Nicci Bassett RN) lisinopriL (Zestril) tablet 10 mg 10 mg, Oral, NIGHTLY, First dose (after last modification) on Fri05/08/21 at 0000, Until Discontinued, Routine 0917 (MAY Hold - Provider: Admin Adt - Reason: Transfer to a Procedural area)1509 (MAY Unhold - Provider: Admin Adt)2100 (Not Given - Provider: Nicci Bassett RN - Reason: See comment - Comment: BP 98/53) 2112 (Given - Provider: Nicci Bassett RN) methocarbamoL (Robaxin) tablet 500 mg () 500 mg, Oral, EVERY 6 HOURS, 8 doses, First dose on Fri05/07/21 at 1622, Last dose on Fri05/09/21 at 1022, Routine 0039 (Given - Provider: Can Dwyer RN)0558 (Given - Provider: Donna Shipman RN)0917 (MAY Hold - Provider: Admin Adt - Reason: Transfer to a Procedural area)1022 (Not Given - Provider: Prerna Youngblood RN - Reason: Transfer to a Procedural area)1247 (MAY Unhold - Provider: Elle Hackett RN)1607 (Given - Provider: Prerna Youngblood RN)2217 (Given - Provider: Nicci Bassett RN) 0340 (Given - Provider: Nicci Bassett RN)0948 (Given - Provider: Yulissa Elkins RN) pantoprazole EC (Protonix) tablet 40 mg 40 mg, Oral, DAILY, First dose on Fri05/08/21 at 0900, Until Discontinued, DO NOT CRUSH OR OPEN, Routine 0917 (MAY Hold - Provider: Admin Adt - Reason: Transfer to a Procedural area)1509 (MAY Unhold - Provider: Admin Adt)1515 (Not Given - Provider: Prerna Youngblood RN - Reason: Patient/family refused - Comment: wants to rest) 0941 (Given - Provider: Yulissa Elkins RN) 0945 (Given - Provider: Yulissa Elkins RN) senna-docusate (Pericolace) 8.6-50 mg per tablet 2 tablet 2 tablet, Oral, 2 TIMES DAILY, First dose on Fri05/07/21 at 2100, Until Discontinued, Routine 0900 (Not Given - Provider: Prerna Youngblood RN - Reason: Transfer to a Procedural area)0917 (MAY Hold - Provider: Admin Adt - Reason: Transfer to a Procedural area)1509 (MAY Unhold - Provider: Admin Adt)2113 (Given - Provider: Nicci Bassett RN) 0941 (Given - Provider: Yulissa Elkins RN)211 (Given - Provider: Nicci Bassett RN) 0945 (Given - Provider: Yulissa Elkins RN) sodium chloride 0.9 % (flush) (BD PosiFlush Normal Saline 0.9) flush 5 mL 5 mL, Intravenous, 2 TIMES DAILY, First dose on Fri05/08/21 at 2100, Until Discontinued, Recovery (Recovery-Hospital Unit), Routine 2114 (Given - Provider: Nicci Bassett RN) 0943 (Given - Provider: Yulissa Elkins RN)2114 (Given - Provider: Nicci Bassett, RAFA) 0948 (Given - Provider: Yulissa Elkins RN) Continuous Medication Order 05/08/2021 05/09/2021 05/10/2021 sodium chloride 0.9% infusion (CANCELED) 100 mL/hr, Intravenous, CONTINUOUS, Starting on Fri05/08/21 at 0000, Until Fri05/09/21 at 0710 0046 (New Bag - Provider: Can Dwyer RN)0917 (MAY Hold - Provider: Admin Adt - Reason: Transfer to a Procedural area)1247 (MAY Unhold - Provider: Elle Hackett, RN)1258 (New Bag - Provider: Elle Hackett RN)2120 (New Bag - Provider: Nicci Bassett, RAFA) 0606 (New Bag - Provider: Nicci Bassett, RAFA)0710 (Stopped - Provider: Yulissa Elkins RN) PRN Medication Order 05/08/2021 05/09/2021 05/10/2021 bisacodyL (Dulcolax) suppository 10 mg 10 mg, Rectal, DAILY PRN, Starting on Fri05/07/21 at 1616, Until Ghislaine 05/10/21 at 1743, Constipation, Administer if needed per patient's routine or if no bowel movement within 48 hours to achieve: (1) One bowel movement every 48 hours, AND (2) Without straining. If multiple PRN bowel medications ordered, start with magnesium hydroxide, then bisacodyl. Multiple medications may be given concomitantly for constipation., Routine 0917 (MAY Hold - Provider: Admin Adt - Reason: Transfer to a Procedural area)1509 (MAY Unhold - Provider: Admin Adt) cyclobenzaprine (Flexeril) tablet 10 mg 10 mg, Oral, 3 TIMES DAILY PRN, Starting on Fri05/07/21 at 1616, Until Ghislaine 05/10/21 at 1743, Muscle spasms, Routine 0917 (MAY Hold - Provider: Admin Adt - Reason: Transfer to a Procedural area)1247 (MAY Unhold - Provider: Elle Hackett RN) 0945 (Given - Provider: Yulissa Elkins RN) gelatin adsorbable (Gelfoam) sponge (CANCELED) ONCE PRN, Starting on Fri05/08/21 at 1018, Until Ghislaine 05/10/21 at 1743, Intra-Operative (Intra-Procedure) 1018 (Given - Provider: Nancy Fountain MD - Comment: Used PRN with thrombin during the case) HYDROmorphone (Dilaudid) (2 mg/mL) multi-dose injection solution 0.6 mg (CANCELED)(Linked Group 2) 0.6 mg, Intravenous, EVERY 10 MIN PRN, [...] fentaNYL for breakthrough pain, PACU Recovery, Routine 1255 (Given - Provider: Elle Hackett RN) labetaloL (Normodyne) (5 mg/mL) injection solution 10-20 mg 10-20 mg, Intravenous, EVERY [...] is less than 50 beats per minute., Routine 0917 (MAY Hold - Provider: Admin Adt - Reason: Transfer to a Procedural area)1509 (MAY Unhold - Provider: Admin Adt) lidocaine (Xylocaine) 1% (10 mg/mL) injection 3 mg 3 mg (0.3 mL), Subcutaneous, ONCE PRN, 1 dose, Starting on Fri05/08/21 at 1938, Until Ghislaine 05/10/21 at 1743, for discomfort with PIV insertion, Recovery (Recovery-Hospital Unit), Routine lidocaine-EPINEPHrine (pf) (1.5% - 1:200,000) injection (CANCELED) ONCE PRN, Starting on Tu05/08/21 at 0958, Until Ghislaine 05/10/21 at 1743, Intra-Operative (Intra-Procedure), Routine 957 (Given - Provider: Luis Fernando Luz MD) magnesium citrate oral liquid 296 mL(Linked Group 3) 296 mL, Oral, DAILY PRN, Starting on [...] repeat times 1 in 4 hours., Routine 916 ([facility] Hold - Provider: Admin Adt - Reason: Transfer to a Procedural area)1509 ([facility] Unhold - Provider: Admin Adt) magnesium citrate oral liquid 296 mL(Linked Group 3) 296 mL, Per G Tube, DAILY PRN, [...] repeat times 1 in 4 hours., Routine 916 ([facility] Hold - Provider: Admin Adt - Reason: Transfer to a Procedural area)1509 ([facility] Unhold - Provider: Admin Adt) magnesium hydroxide (Milk of Magnesia) (240 mg/mL) oral liquid 10 mL 10 mL, [...] may be given concomitantly for constipation., Routine 09 (MAY Hold - Provider: Admin Adt - Reason: Transfer to a Procedural area)1509 ([facility] Unhold - Provider: Admin Adt) ondansetron (pf) (Zofran) (2 mg/mL) injection 4-8 mg(Linked Group 4) 4-8 mg, Intravenous, EVERY 8 HOURS PRN, Starting on 05/07/21 at 1616, Until Ghislaine 05/10/21 at 1743, Nausea, If multiple antiemetics are ordered, use ondansetron first, prochlorperazine second, and metaclopramide third. Start with 4mg and if ineffective in 30 minutes, give an additional 4mg 09 (MAY Hold - Provider: Admin Adt - Reason: Transfer to a Procedural area)1509 ([facility] Unhold - Provider: Admin Adt) ondansetron (Zofran) tablet 4-8 mg(Linked Group 4) 4-8 mg, Oral, EVERY 8 HOURS PRN, Starting on Fri05/07/21 at 1616, Until Ghislaine 05/10/21 at 1743, Nausea, Vomiting, If multiple antiemetics are ordered, use ondansetron first, prochlorperazine second, and metaclopramide third. PO Preferred. If patient unable to take PO, may give IV if ordered. Start with 4mg and if ineffective in 45 minutes, give an additional 4mg, Routine 0917 ([facility] Hold - Provider: Admin Adt - Reason: Transfer to a Procedural area)1509 ([facility] Unhold - Provider: Admin Adt) oxyCODONE (Roxicodone) tablet 10 mg(Linked Group 5) 10 mg, Oral, EVERY 4 HOURS PRN, Starting on Fri05/07/21 at 1618, Until Ghislaine 05/10/21 at 1743, Pain, severe pain (7-10), Routine 0039 (Given - Provider: Can Dwyer RN)0443 (Given - Provider: Donna Shipman RN)0917 ([facility] Hold - Provider: Admin Adt - Reason: Transfer to a Procedural area)1247 ([facility] Unhold - Provider: Elle Hackett RN)1335 (Given - Provider: Gabriela Mena RN) 0040 (Given - Provider: Nicci Bassett RN)0941 (See Alternative - Provider: Yulissa Elkins RN)1404 (Given - Provider: Yulissa Elkins RN) 0019 (Given - Provider: Nicci Bassett RN)0434 (Given - Provider: Nicci Bassett RN) oxyCODONE (Roxicodone) tablet 5 mg(Linked Group 5) 5 mg, Oral, EVERY 4 HOURS PRN, Starting on Fri05/07/21 at 1618, Until Ghislaine 05/10/21 at 1743, Pain, moderate pain (4-6), Routine 0039 (See Alternative - Provider: Can Dwyer RN)0443 (See Alternative - Provider: Donna Shipman RN)0917 (MAY Hold - Provider: Admin Adt - Reason: Transfer to a Procedural area)1247 ([facility] Unhold - Provider: Elle Hackett RN)1335 (See Alternative - Provider: Gabriela Mena RN) 0040 (See Alternative - Provider: Nicci Bassett RN)0941 (Given - Provider: Yulissa Elkins, RAFA)1404 (See Alternative - Provider: Yulissa Elkins RN) 0019 (See Alternative - Provider: Nicci Bassett RN)0434 (See Alternative - Provider: Nicci Bassett RN) polyethylene glycoL (Miralax) packet 17 g 17 g, Oral, DAILY PRN, Starting on Fri05/07/21 at [...] may be given concomitantly for constipation., Routine 0917 (MAY Hold - Provider: Admin Adt - Reason: Transfer to a Procedural area)1509 ([facility] Unhold - Provider: Admin Adt) sodium chloride 0.9 % (flush) (BD PosiFlush Normal Saline 0.9) flush 5-20 mL 5-20 mL, Intravenous, EVERY 1 MIN PRN, Starting on Fri05/08/21 at 1938, Until Ghislaine 05/10/21 at 1743, flush, Flush pertains to all indwelling lines. Flush per protocol found in the job aid using the link provided on this medication record., Recovery (Recovery-Hospital Unit), Routine thrombin (bovine) (Thrombin-Jmi) solution (CANCELED) ONCE PRN, Starting on Fri05/08/21 at 1016, Until Ghislaine 05/10/21 at 1743, Intra-Operative (Intra-Procedure) 1016 (Given - Provider: Nancy Fountain MD - Comment: Used PRN with gelfoam during the case) Linked Groups Order Group 1: lidocaine (Lidoderm) 5% patch 1 patchJump to med 1 patch, Transdermal, EVERY 24 HOURS, First dose on Fri05/07/21 at 1112, Until Discontinued, Apply patch(es) for 12 hours, and then remove for 12 hours., Routine And lidocaine (Lidoderm) topical patch REMOVALJump to med Transdermal, EVERY 24 HOURS, First dose on Fri05/07/21 at 2310, Until Discontinued, Remove lidocaine 5% patch Group 2: HYDROmorphone (Dilaudid) (2 mg/mL) multi-dose injection solution 0.4 mg (CANCELED) 0.4 mg, Intravenous, EVERY 10 MIN PRN, Starting on Fri05/08/21 at 1201, Until Fri05/08/21 at 1429, Pain, For Mild to Moderate Pain (1-5 out of 10), Hold for respiratory rate less than 10 per minute. Maximum dose 4 mg over one hour including administrations in the OR. If multiple pain medications are ordered, start with HYDROmorphone or morphine and use fentaNYL for breakthrough pain, PACU Recovery, Routine Or HYDROmorphone (Dilaudid) (2 mg/mL) multi-dose injection solution 0.6 mg (CANCELED)Jump to med 0.6 mg, Intravenous, EVERY 10 MIN PRN, [...] fentaNYL for breakthrough pain, PACU Recovery, Routine Group 3: magnesium citrate oral liquid 296 mLJump to med 296 mL, Oral, DAILY PRN, Starting on 05/07/21 [...] repeat times 1 in 4 hours., Routine Or magnesium citrate oral liquid 296 [...] repeat times 1 in 4 hours., Routine Group 4: ondansetron (Zofran) tablet 4-8 mgJump to med 4-8 mg, Oral, EVERY 8 HOURS PRN, Starting on Fri05/07/21 at 1616, Until Ghislaine 05/10/21 at 1743, Nausea, Vomiting, If multiple antiemetics are ordered, use ondansetron first, prochlorperazine second, and metaclopramide third. PO Preferred. If patient unable to take PO, may give IV if ordered. Start with 4mg and if ineffective in 45 minutes, give an additional 4mg, Routine Or ondansetron (pf) (Zofran) (2 mg/mL) injection 4-8 mgJump to med 4-8 mg, Intravenous, EVERY 8 HOURS PRN, Starting on Fri05/07/21 at 1616, Until Ghislaine 05/10/21 at 1743, Nausea, If multiple antiemetics are ordered, use ondansetron first, prochlorperazine second, and metaclopramide third. Start with 4mg and if ineffective in 30 minutes, give an additional 4mg Group 5: oxyCODONE (Roxicodone) tablet 5 mgJump to med [...] Routine documented in this encounter Care Teams Contracts Manager Relationship Specialty Start Date End Date Patricio Gabriel MD [address] [place] [id number] PCP - General 02/20/10 documented as of this encounter
--- OUTSIDE RECORDS SUMMARY | 2024-04-12 14:08 | XMS_ITS | Encounter Summary ---
Author Organization [facility] [place] [address] Care Team Providers Care Web Methods Developer Name Role Phone Patricio Gabriel MD Primary Care Provider [phone] Reason for Visit * Auth/Cert Specialty Diagnoses / Procedures Referred By Contac t Referred To Contact Diagnoses Back pain Procedures na Referral ID Status Reason Start Date Expiration Date Visits Re quested Visits Authorized [id number] 1 1 Encounter Details Date Type Department Care Team (Late st Contact Info) Description 05/08/2021 9:15 AM EST Anesthesia Event [place] [phone] [facility] [place] [address] Anesthesia Record Procedure Summary Procedure Name Responsible Anesthesiologist Anesthesia Start Time Anesthesia Stop Time LAMINECTOMY LUMBAR, DECOMPRESSION, 1 OR 2 SEGMENTS (WRVU 16.43) (Midline: Spine Lumbar) Adrian Acosta DO 05/08/21 0915 05/08/21 1224 Events Date Time Event Comment 05/08/2021 0835 0915 AN Verify 0915 Start 0917 An Start Data 0927 An Induction 0929 An Intubation 0931 Anesthesia Ready 0941 Quick Note Patient placed in prone position. Head and neck maintained in neutral midline position with Prone View. Lines and tubes reassessed. ETT placement and bilateral breath sounds reconfirmed. Face, eyes, nose and ears assessed and free from pressure. 0957 Procedure Start 1107 Quick Note 1157 Break/Relief In I assumed ca re for Break Relief before which we: 1. Identified the patient 2. Identified the responsible provider(s) 3. Reviewed the pertinent medical history 4. Discussed the surgical plan and course 5. Reviewed intra-op anesthesia management and issues during anesthesia 6. Set expectations for the relief (and/or post-procedure) period 7. Allowed opportunity for questions and acknowledgement of understanding Liss Rice BARREL TESTER AND DRAINER 1216 Extubation/LMA Out 1219 an stop data 1221 Recovery or ICU Handoff Bethany ent care was transferred to the destination unit staff after review of the patient's medical history, current anesthetic/surgical status and plan, according to the Provider Handoff Checklist. 1224 Stop Meds Name Total IV Lidocaine 60 mg Propofol 190 mg PHENYLephrine 320 mcg ePHEDrine 10 mg Ondansetron 8 mg Dexamethasone 8 mg Succinylcholine 80 mg fentaNYL 200 mcg ceFAZolin 2 g PHENYLephrine INF 1,195 mcg Glycopyrrolate 0.2 mg Lactated Ringers 600 mL Lactated Ringers 800 mL * Agents Name O2 Air N2O Sevoflurane (et) * Blood No blood administrations on file. Lines, Drains, and Airways Type Details Placement Removal Incision 05/08/21; 1000; lumb ar spine; midline 05/08/21 1000 by Aracelis Mcelroy RN Incision 09/14/13; lumbar spi ne; midline; 11/26/21 (LDA cleanup utility RA#[id number]); 1715 (LDA cleanup utility RA#[id number]) 09/14/13 0000 by Scotty May RN 11/26/21 1715 by Devan Carrera (RETIRED) Peripheral IV Line - Single Lumen 05/08/21; 0433; cephalic vein (lateral side of arm), right (accessory cephalic); qobh-yur-xoezth catheter system; Anatomical Landmarks; 22 gauge, 1 in length; gsr, rn vas; distraction, tolerated well; 0; removed per policy/procedure; 05/10/21; 1503 05/08/21 0433 by Kristy Jim RN 05/10/21 1503 by Sarah Iglesias, RN ETT Mask Ventilation: Ea sy (1); ETT Type: Cuffed, Oral; ETT Size: 7.5 mm; Mac Blade: 3; Notes: Asleep, Pre-O2, Stylette; Attempts: 1; Laryngoscopy Grade: 1; ETT Placement Verified By: Capnometry, Auscultation, Visual; Secured at Teeth: 21 cm; Inserted by: Steve Cota CRNA; Removal Date: 05/08/21; Removal Time: 121505/08/21 09 by Steve Cota CRNA 05/08/21 121 by Steve Cota CRNA Urethral Catheter 05/08/21; 0935; Surg edmund longer than 2 hours; indwelling double lumen catheter; hydrophilic coated, latex; 10; inserted at this facility (clear yellow urine return.); 1; 5; 10; none; drainage bag to dependent drainage; 05/08/21; 121105/08/21 0935 by Aracelis Mcelroy RN 05/08/211211 by Aracelis Mcelroy RN (RETIRED) Peripheral IV Line - Single Lumen 05/08/21; 1000; cephalic vein (lateral side of arm), left; ggab-vkz-rgxlmo catheter system; Anatomical Landmarks; US Not Used; 18 gauge; Steve Cota CRNA; 05/09/21; 211705/08/21 1000 by Steve Cota CRNA 05/09/212117 by Nicci Bassett RN documented in this encounter Social History Tobacco [...] documented as of this encounter OR Notes * Anesthesia Postprocedure Evaluation - Adrian Acosta DO - 05/08/2021 3:24 PM EST Department of Anesthesiology Post-procedure Note Patient: Yesi sEtrella Procedure Summary Date: 05/08/21 Room / Location: [facility] OR [address] [place] [address] MAIN OR Anesthesia Start: 914 Anesthesia Stop: 1223 Procedures: LAMINECTOMY LUMBAR, DECOMPRESSION, 1 OR 2 SEGMENTS (WRVU 16.43) (Midline Spine Lumbar) MICROSCOPE USE (WRVU 3.46) (N/A Spine Lumbar) Diagnosis: (R L5-S1 disc herniation) Surgeons: Nancy Fountain MD Responsible Provider: Adrian Acosta DO Anesthesia Type: general ASA Status: 2 All Anesthesia Providers: Anesthesiologist: Adrian Acosta DO BARREL TESTER AND DRAINER: Steve Cota CRNA Vitals Value Taken Time BP 121/64 05/08/21 1445 Temp 36.6 ??C (97.9 ??F) 05/08/21 1430 Pulse 54 05/08/21 1445 Resp 11 05/08/21 1445 SpO2 96 % 05/08/21 1449 Pain Level 0 05/08/21 1430 Vitals shown include unvalidated device data. Patient Location: PACU/[facility] Level of Consciousness: Awake and Alert Pain Management: Satisfactory Analgesia PONV: None Cardiovascular Status: At Baseline and Hemodynamically Stable Respiratory Status: At Baseline and Room Air Postoperative Fluid Status: Intravascular EUvolemia Possible Anesthetic Complications: NONE apparent at time of evaluation Final Primary Anesthesia Type: General (The anesthetic type performed was the same as planned.) Comments: Adrian Acosta DO * Anesthesia Preprocedure Evaluation - Adrian Acosta DO - 05/08/2021 8:15 AM EST Pre-Anesthesia Evaluation for: Yesi Estrella a 71 y.o. female. Procedure(s): LAMINECTOMY LUMBAR, DECOMPRESSION, 1 OR 2 SEGMENTS [facility] Patient Active Problem List Diagnosis Date [...] LUMBAR performed by Tawanda Douglass MD at [facility] MAIN OR ??? PRO REDO EXCIS LUMBAR DISC 09/14/2013 LAMINOTOMY W\DECOMPRESSION, ONE LVL, LUMBAR ,RE-EXPL (INCLDNG PART. FACETECTOMY, FORAMINOTOMY &\OR DISCECTOMY) performed by Tawanda Douglass MD at [facility] MAIN OR Social History Tobacco Use [...] ceFAZolin (Ancef) 1 g in dextrose 5% 50 mL infusion Intravenous, PRN, Starting on Fri05/08/21 at 0955, Until Fri05/08/21 at 1226, Administer over 30 Minutes, Anesthesia Intra-op Given 05/08/2021 9:55 AM EST 2 g dexamethasone (Decadron) injection Intravenous, PRN, Starting on Fri05/08/21 at 0934, Until Fri05/08/21 at 1226, Anesthesia Intra-op, Routine Given 05/08/2021 9:34 AM EST 8 mg ePHEDrine sulfate (5 mg/mL) multi-dose injection Intravenous, PRN, Starting on Fri05/08/21 at 1011, Until Fri05/08/21 at 1226, Anesthesia Intra-op, Routine Given 05/08/2021 10:11 AM EST 10 mg fentaNYL (pf) (50 mcg/mL) multi-dose injection Intravenous, PRN, Starting on Fri05/08/21 at 0921, Until Fri05/08/21 at 1226, Anesthesia Intra-op, Routine Given 05/08/2021 11:19 AM EST 50 mcg Given 05/08/2021 10:41 AM EST 50 mcg Given 05/08/2021 9:57 AM EST 50 mcg glycopyrrolate (Robinul) (0.2 mg/mL) multi-dose injection Intravenous, PRN, Starting on Fri05/08/21 at 1017, Until Fri05/08/21 at 1226, Anesthesia Intra-op, Routine Given 05/08/2021 10:17 AM EST 0.2 mg lactated ringers infusion Intravenous, CONTINUOUS PRN, Starting on Fri05/08/21 at 0915, Until Fri05/08/21 at 1226, Anesthesia Intra-op New Bag 05/08/2021 9:15 AM EST lactated ringers infusion Intravenous, CONTINUOUS PRN, Starting on Fri05/08/21 at 1000, Until Fri05/08/21 at 1226, Anesthesia Intra-op New Bag 05/08/2021 10:00 AM EST lidocaine (pf) (Xylocaine) (20 mg/mL) 2% injection syringe Intravenous, PRN, Starting on Fri05/08/21 at 0925, Until Fri05/08/21 at 1226, Anesthesia Intra-op, Routine Given 05/08/2021 9:25 AM EST 60 mg ondansetron (pf) (Zofran) (2 mg/mL) injection Intravenous, PRN, Starting on Fri05/08/21 at 0934, Until Fri05/08/21 at 1226, Anesthesia Intra-op, Routine Given 05/08/2021 11:56 AM EST 4 mg Given 05/08/2021 9:34 AM EST 4 mg PHENYLephrine (Rj-Synephrine) (80 mcg/mL) in sodium chloride 0.9% 250 mL infusion Intravenous, CONTINUOUS PRN, Starting on Fri05/08/21 at 1013, Until Fri05/08/21 at 1226, Anesthesia Intra-op, Routine Rate/Dose Change 05/08/2021 11:39 AM EST 10 mcg/min 7.5 mL/hr Rate/Dose Change 05/08/2021 11:06 AM EST 5 mcg/min 3.75 m L/hr Restarted 05/08/2021 10:55 AM EST 10 mcg/min 7.5 mL/hr PHENYLephrine in NS (PF) (RJ-SYNEPHRINE) 0.8 mg/10 mL (80 mcg/mL) multi-dose injection Syrg Intravenous, PRN, Starting on Fri05/08/21 at 0934, Until Fri05/08/21 at 1226, Anesthesia Intra-op, Routine Given 05/08/2021 10:01 AM EST 80 mcg Given 05/08/2021 9:50 AM EST 80 mcg Given 05/08/2021 9:41 AM EST 80 mcg propofoL (Diprivan) 10 mg/mL bolus injection (Anesthesia) Intravenous, PRN, Starting on Fri05/08/21 at 0927, Until Fri05/08/21 at 1226, Anesthesia Intra-op Given 05/08/2021 10:23 AM EST 50 mg Given 05/08/2021 9:29 AM EST 40 mg Given 05/08/2021 9:27 AM EST 100 mg succinylcholine (Anectine;Quelicin) (20 mg/mL) injection Intravenous, PRN, Starting on Fri05/08/21 at 0928, Until Fri05/08/21 at 1226, Anesthesia Intra-op, Routine Given 05/08/2021 9:28 AM EST 80 mg documented in this encounter Care Teams Web Methods Developer Relationship Specialty Start Date End Date Patricio Gabriel MD [address] [place] [id number] PCP - General 02/20/10 documented as of this encounter
--- OUTSIDE RECORDS SUMMARY | 2024-04-12 14:08 | XMS_ITS | Encounter Summary ---
Author Organization [facility] [place] [address] Care Team Providers Care Knobber Name Role Phone Patricio Gabriel MD Primary Care Provider Encounter Details Date Type Department Care Team (Latest Contact Info) Description 05/07/2021 Travel Social History Tobacco Use [...] on filedocumented in this encounter Care Teams Knobber Relationship Specialty Start Date End Date Patricio Gabriel MD [address] [address] PCP - General 02/20/10 documented as of this encounter
--- OUTSIDE RECORDS SUMMARY | 2024-04-12 14:08 | XMS_ITS | Encounter Summary ---
Author Organization [facility] Address [facility] [place] [address] Care Team Providers Care Digital Field Service Technician Name Role Phone Patricio Gabriel MD Primary Care Provider [phone] Reason for Referral * Physical Therapy (Routine) - Closed Specialty Diagnoses / Procedures Referred By Contac t Referred To Contact Physical Therapy Diagnoses Radiculopathy of lumbar region Nancy Fountain MD [facility] [place] [address] Physical Therapy, [facility] [address] [place] [id number] Referral ID Status Reason Start Date Expiration Date V isits Requested Visits Authorized [id number] Closed Evaluate and Treat 06/22/2021 12/19/2021 12 12 Encounter Details Date Type Department Care Team (Latest Contact Info) Description 06/22/2021 2:20 PM EDT Office [place] [address] Nancy Fountain MD [facility] [place] [address] Radiculopathy of lumbar region (Primary Dx); Right lumbar radiculopathy with L4-L5 HNP Social History Tobacco Use Types Packs/Day Years [...] 36.8 ??C (98.2 ??F) 06/22/2021 2:07 PM ED T Respiratory Rate 16 06/22/2021 2:07 PM EDT Oxygen Saturation - - Inhaled Oxygen Concentration - - Weight 67.5 kg (148 lb 12.8 oz) 06/22/2021 2:07 PM EDT Height 165.1 cm (5' 5) 06/22/2021 2:07 PM EDT Body Mass Index 24.76 06/22/2021 2:07 PM EDT documented in this encounter Progress Notes * Nancy Fountain MD - 06/22/2021 2:20 PM [...] although it may be slightly worse. She also reports some swelling of the right lower extremity, [...] posterior midline incision, without erythema, fluctuance, or drainage. She is walking with good stable gait with [...] muscle relaxants which I am happy to provide.I have sent a prescription for Flexeril to her pharmacy, and have advised that she should continue to seek refills with her primary care provider. I would like to see her in follow-up in 6 months to see how her foot is doing. Plan; 1. Referral to physical therapy 2. Refill for Flexeril 3. Follow-up with me in 6 months. documented in this encounter Plan of Treatment Scheduled Referrals Name Type Priority Associated Diagnoses Orde r Schedule Referral to Physical Therapy Outpatient Referral Routine Radiculopathy of lumbar region Ordered: 06/22/2021 documented as of this encounter Visit Diagnoses Diagnosis Radiculopathy of lumbar region- Primary Thoracic or lumbosacral neuritis or radiculitis, unspecified Right lumbar radiculopathy with L4-L5 HNP Thoracic or lumbosacral neuritis or radiculitis, unspecified documented in this encounter Care Teams Digital Field Service Technician Relationship Specialty Start Date End Date Patricio Gabriel MD [address] [place] [id number] PCP - General 02/20/10 documented as of this encounter
--- OUTSIDE RECORDS SUMMARY | 2024-04-12 14:08 | XMS_ITS | Encounter Summary ---
Author Organization Formerly [facility] Address [facility] [place] [address] Care Team Providers Care Sign Erector And Repairer Name Role Phone Patricio Gabriel MD Primary Care Provider Reason for Visit * Reason Comments Back Pain Leg Pain right * Auth/Cert Specialty Diagnoses / Procedures Referred By Contac t Referred To Contact Diagnoses Back pain Procedures na Referral ID Status Reason Start Date Expiration Date Visits Re quested Visits Authorized [id number] 1 1 Encounter Details Date Type Department Care Team (Latest Contact Info) Description 05/07/2021 10:48 AM EST - 05/10/2021 3:43 PM [facility] Hospital Encounter [address] [place] [id number] Nancy Fountain MD [facility] [place] [address] [place] [address] Esthela Weaver MD Back pain (Primary Dx); Radiculopathy of lumbar region; S/P Revision Right L4-S1 decompression, Right L4-5 diskectomy - 09/14/13 (Evonne); Right lumbar radiculopathy with L4-L5 HNP Discharge Disposition: Home with VNA Social History Tobacco Use Types Packs/Day Years [...] EST Temperature 36.6 ??C (97.9 ??F) 05/10/2021 1 2:00 PM EST Respiratory Rate 14 05/10/2021 12:0 0 PM EST Oxygen Saturation 96% 05/10/2021 12: 00 PM EST Inhaled Oxygen Concentration - - [...] Case was discussed with Neurosurgery Attending, Dr. aNncy Fountain, who agrees with the above plan. [...] Not Detected Not Detected SARS-Cov-2 RNA Source CITY COUNCILMAN Swab Studies: Results for orders placed or [...] who have questions please contact the health home care giver that requested your imaging first. Electronically signed by: Hermann Villareral MD, [facility] ([phone]), at 05/07/2021 2:16 PM Pending Studies and Lab Data: N/A Discharge Condition: Stable Discharge to: Home with VNA Future Appointments and Orders Future Orders Complete By Expires Referral to Home Health - at DISCHARGE [VWT2724 CPT(R)] As directed Process Instructions: Scheduling Instructions: Comments: DOCUMENTATION FOR VNA SERVICES (INCLUDING THOSE PATIENTS WITH MEDICARE COVERAGE REQUIRING HOME VNA SERVICES AND/OR HOSPICE SERVICES) PATIENT'S LOCATION: Yesi Estrella [address] [place] [phone] (home) Cell: Telephone Information: Talking Books Library Clerk's Name: Marcus In discussion with the attending physician, it is certified that this patient is under their care and that they, or a Nurse Practitioner,Clinical Nurse specialist or Physician Business Applications Manager who is working directly with them, had [...] for managing ADL's. [facility] PHONE: [phone] FAX: [phone] Start of care: FOR MEDICARE ONLY: In [...] patient's PCP: Patricio Gabriel MD [address] [facility] [address] All VNA agencies which cover the area of patient's residence have been reviewed, either verbally chino writing, and patient/family have chosen the home health care agency noted Questions: Agency name and contact information: [facility] Patient location post discharge: [facility] What services are requested: Physical Therapy Occupational Therapy Start date: Responsible MD post discharge contact info: PCP Walker standard [EQ135 Custom] As directed Process Instructions: Scheduling Instructions: Comments: Yesi Estrella [address] [facility] [phone] (home) Telephone Information: Diagnosis: deconditioning with Unsteady gait, back pain s/p hemilaminectomy Significant weakness, ataxia or gait abnormality Patient's: Hgt: Ht Readings from Last 1 Encounters: 05/07/21 : 165.1 cm (5' 5) ? Wgt: Wt Readings from Last 1 Encounters: 05/07/21 : 65.7 kg (144 lb 12.8 oz) VENDOR: [facility] Located @ [place], [place] Ordering: Front wheel walker Deliver to [...] anticoagulant, and non-steroidal anti-inflammatory (NSAIDs) drugs. Common ejuf-jnq-phzqtbk medications which should be avoided include Aspirin, [...] to pass. These medications can be obtained rcvd-aba-qtfhygj and their use is recommended on an [...] retention Constipation not relieved by diet and/or movr-guk-vqtbktd stool softeners and laxatives Nausea/vomiting (upset stomach) [...] Primary Care Provider or with the Neurosurgery CITY COUNCILMAN/RN. Your hitesh may also be removed at rehab. Appointments: Please follow up in the Neurosurgery Clinic in 4-[address] Fountain. Please call the Neurosurgery Office at [phone] if you do not receive a scheduled appointment within two weeks. Follow-up Imaging: None HOW TO REACH NEUROSURGERY Office Hours: Friday through Friday, 8am-5pm. Call . On weekends or after office hours: Call [phone] and ask the profile saw operator to page the Neurosurgery Resident/Advanced Practice Provider teaching music lessons. IMPORTANT PHONE NUMBERS: Outpatient Nurse (Robyn Cochran) Inpatient Nurses Neurosurgical Resident/Advanced Practice Provider On-Call (after 5pm or before 8am) Neurosurgery offices (Friday through Friday between 8am-5pm): Adult Neurosurgery Dr. Luigi Ernandez Pediatric Neurosurgery Dr. Harika Nelson Advanced Practice Providers Elle Morgan, Nurse Practitioner (outpatient) Génesis Parekh, Physician Business Applications Manager (inpatient) Abiola Saxena, Nurse Practitioner (inpatient) Sima Diaz Physician Business Applications Manager (inpatient) Sima Reddy, Physician Business Applications Manager (inpatient) Brenda Davidson, Nurse Practitioner (outpatient: vascular) Daysi Jeffery Physician Business Applications Manager (outpatient: spine) Abhishek Mckinney, Nurse Practitioner (inpatient/outpatient) Cain Kelley, Physician Business Applications Manager (outpatient) Fabiana Magaña, Nurse Practitioner (outpatient: neuro-oncology) HOW TO REACH NEUROSURGERY Office Hours (Friday through Friday 8am-5pm): Call On weekends or after office hours (after 5pm or before 8am): Call [phone] and ask the profile saw operator to page the Neurosurgery Resident/Advanced Practice Provider teaching music lessons. *Your surgeon may not be scallop cutter (especially after office hours or on the weekend) so be ready totell about yourself and your surgery when you call. Neurosurgery Providers Adult Neurosurgery Dr. Luigi Ernandez Pediatric Neurosurgery Dr. Harika Nelson Advanced Practice Providers Elle Morgan, Nurse Practitioner (outpatient) Génesis Parekh, Physician Business Applications Manager (inpatient) Abiola Saxena, Nurse Practitioner (inpatient) Sima Diaz, Physician Business Applications Manager (inpatient) Piyush Voss, Nurse Practitioner (outpatient: pediatric) Sima Reddy, Physician Business Applications Manager (inpatient) Brenda Davidson, Nurse Practitioner (outpatient: vascular) Daysi Jeffery Physician Business Applications Manager (outpatient: spine) Abhishek Mckinney, Nurse Practitioner (inpatient/outpatient) Cain Kelley, Physician Business Applications Manager (outpatient) Fabiana Magaña, Nurse Practitioner (outpatient: neuro-oncology) Outpatient Nurses Lupe Jiménez APRN 05/10/2021 documented in this encounter Discharge Instructions * Patient Instructions* Jacki Jiménez, TANNING SALON ATTENDANT - 05/09/2021 7:14 AM EST SPINAL SURGERY DISCHARGE INSTRUCTIONS PRESCRIPTION INSTRUCTIONS: Please see the medication reconciliation list on this discharge summary for a current list of your medications. Stop the use of blood thinning medications until instructed otherwise by your surgical team. This includes medications known as antiplatelet, anticoagulant, and non-steroidal anti-inflammatory (NSAIDs) drugs. Common dzbz-bgb-xuljmhk medications which should be avoided include Aspirin, [...] to pass. These medications can be obtained jvhl-pwb-penibry and their use is recommended on an [...] retention Constipation not relieved by diet and/or bnsa-gil-kuvqash stool softeners and laxatives Nausea/vomiting (upset stomach) [...] Primary Care Provider or with the Neurosurgery CITY COUNCILMAN/RN. Your hitesh may also be removed at rehab. Appointments: Please follow up in the Neurosurgery Clinic in 4-[address] Fountain. Please call the Neurosurgery Office at [phone] if you do not receive a scheduled appointment within two weeks. Follow-up Imaging: None HOW TO REACH NEUROSURGERY Office Hours: Friday through Friday, 8am-5pm. Call . On weekends or after office hours: Call [phone] and ask the profile saw operator to page the Neurosurgery Resident/Advanced Practice Provider teaching music lessons. IMPORTANT PHONE NUMBERS: Outpatient Nurse (Robyn Cochran) Inpatient Nurses Neurosurgical Resident/Advanced Practice Provider On-Call (after 5pm or before 8am) Neurosurgery offices (Friday through Friday between 8am-5pm): Adult Neurosurgery Dr. Luigi Ernandez Pediatric Neurosurgery Dr. Harika Nelson Advanced Practice Providers Elle Morgan, Nurse Practitioner (outpatient) Génesis Parekh, Physician Business Applications Manager (inpatient) Abiola Saxena, Nurse Practitioner (inpatient) Sima Diaz, Physician Business Applications Manager (inpatient) Sima Reddy, Physician Business Applications Manager (inpatient) Brenda Davidson, Nurse Practitioner (outpatient: vascular) Daysi Jeffery, Physician Business Applications Manager (outpatient: spine) Abhishek Mckinney, Nurse Practitioner (inpatient/outpatient) Cain Kelley, Physician Business Applications Manager (outpatient) Fabiana Magaña, Nurse Practitioner (outpatient: neuro-oncology) [...] a rolling walker 8 years ago, but thinkhilaryhe gave it away Fall history: none ?? [...] leg. ?? This PT brought patient to [facility] in wheelchair to meet with . ?? [...] [facility]. Pt needs a walker and [...] Billing Code: functional mobility ALBINO ORTEGA, PT Pager:[phone] Physical Therapy Inpatient Rehabilitation Department * Albino Ortega, PT - 05/09/2021 3:34 PM [...] LUMBAR performed by Tawanda Douglass MD at [facility] OR ??? PRO DOMINIQUE W/O FACETEC FORAMOT/DSKC 04/01 VRT SEG, LUMBAR Midline 05/08/2021 LAMINECTOMY LUMBAR, DECOMPRESSION, 1 OR 2 SEGMENTS (WRVU 16.43) performed by Nancy Fountain MD at [facility] MA[facility] OR ??? PRO MICROSURG TECHNIQUES, REQ OPER MICROSCOPE N/A 05/08/2021 MICROSCOPE USE (WRVU 3.46) performed by Nancy Fountain MD at [facility] OR ??? PRO REDO EXCIS LUMBAR DISC 09/14/2013 LAMINOTOMY W\DECOMPRESSION, ONE LVL, LUMBAR ,RE-EXPL (INCLDNG PART. 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 Skin: back incision bandaged and dry, IVs [...] mobility and education ALBINO ORTEGA, PT Pager: [phone] Physical Therapy Inpatient Rehabilitation Department * Albino Ortega PT - 05/09/2021 10:50 AM EST Physical Therapy Note PT referral received, chart reviewed, attempted to see patient this morning but she was fatigued after working with OT. Made plan to follow up later after her next pain medication dose. RN aware of pt's status. Albino Ortega PT Beeper# [phone] * Joy Ceron OT - 05/09/2021 9:04 [...] LUMBAR performed by Tawanda Douglass MD at [facility] OR ??? PRO REDO EXCIS LUMBAR DISC 09/14/2013 LAMINOTOMY W\DECOMPRESSION, ONE LVL, LUMBAR ,RE-EXPL (INCLDNG PART. FACETECTOMY, FORAMINOTOMY &\OR DISCECTOMY) performed by Tawanda Douglass MD at [facility] Social History: Home Setup: [...] & Perception o WNL/WFL o corrective lenses weld inspector ?? Communication o WFL ??? Musculoskeletal o [...] of functional outcome. Joy Ceron OTR/L Pager [phone] Occupational Therapy Rehabilitation Department * Masha Grayson [...] Weight: 65.7 kg (144 lb 12.8 oz) (05/07/212238) BMI (Calculated): 24.96 BMI Classification: Normal Weight [...] anticoagulation/antiplatelet - Carb control diet PLEASE PAGE [phone] WITH QUESTIONS Active Hospital Problems Diagnosis ??? [...] Hold] lidocaine 1 patch Transdermal Q24H ??? [May] senna-docusate 2 tablet Oral BID ??? methocarbamoL 500 mg Oral Q6H ??? [MAY Hold] docusate sodium 100 mg Oral BID ??? [MAY Hold] acetaminophen 650 mg Oral Q6H VIOLET ??? [MAY Hold] gabapentin 300 mg Oral TID ??? [MAY Hold] pantoprazole EC 40 mg Oral Daily ??? [MAY Hold] atenoloL 50 mg Oral Nightly ??? [May] lisinopriL 10 mg Oral Nightly Continuous Infusions: ??? sodium chloride 0.9% infusion 100 mL/hr Intravenous Continuous ### PRN Meds: thrombin (bovine), gelatin adsorbable, lidocaine-EPINEPHrine, naloxone, HYDROmorphone OR HYDROmorphone, ketorolac, [May] bisacodyL, [MAY Hold] magnesium hydroxide, [MAY Hold] polyethylene glycoL, [MAY Hold] magnesium citrate OR [MAY Hold] magnesium citrate, [MAY Hold] ondansetron OR [MAY Hold] ondansetron, cyclobenzaprine, [MAR Hold] labetaloL, oxyCODONE OR oxyCODONE EXAM: Vitals: [...] SCDs, Hold anticoagulation/antiplatelet - ADAT PLEASE PAGE [phone] WITH QUESTIONS Active Hospital Problems Diagnosis ??? [...] as appropriate. Thanks. Albino Ortega, PT Beeper# [phone] * Joy Ceron OT - 05/08/2021 9:06 AM EST Occupational Therapy Note Document Type: contact Total Minutes, Occupational Therapy: 0 Reason: 05/08/21 09 Evaluation & Treatment Document Type contact Total Minutes, Occupational Therapy 0 Comment, Session Not Performed Attempted to see pt for OT evaluation. However, pt was leaving for OR. Will follow-up and complete OT evaluation when appropriate. Pager: [phone] Joy Ceron OTR/L 05/08/2021 Occupational Therapy Rehabilitation Department * [...] Weight: 65.7 kg (144 lb 12.8 oz) (05/07/212238) BMI (Calculated): 24.96 BMI Classification: Normal Weight [...] (Give Meds) - OR today PLEASE PAGE [phone] WITH QUESTIONS Active Hospital Problems Diagnosis ??? [...] Grayson MD - 05/07/2021 5:[address] [facility] NEUROSURGERY H&P Date: 05/07/2021 ID: Yesi Estrella, 71 y.o. female : 1950 Admission Date: 05/07/2021 PCP: Patricio Gabriel MD Consult information: Date & Time: 05/07/2021 5:32 PM Referring Service: Emergency Medicine Neurosurgery Attending: Nancy Fountain MD Place of Consult: [facility] CC/Reason for consult: R leg pain, [...] Thoracic or lumbosacral neuritis or radiculitis, unspecified [id number] ??? S/P Revision Right L4-S1 decompression, Right [...] LUMBAR performed by Tawanda Douglass MD at [facility] OR ??? PRO REDO EXCIS LUMBAR DISC 09/14/2013 LAMINOTOMY W\DECOMPRESSION, ONE LVL, LUMBAR ,RE-EXPL (INCLDNG PART. FACETECTOMY, FORAMINOTOMY &\OR DISCECTOMY) performed by Tawanda Douglass MD at [facility] Medications: No current facility-administered [...] MD. Masha Grayson MD 05/07/2021 5:32 PM [facility] Neurosurgery Inpatient Pager: [phone] Personal Pager: [phone] Active Hospital Problems Diagnosis ??? Back pain [...] prior L3-L4 and left L4- L5 decompression [id number] and a L4-S1 hemilaminectomy with discectomy at [...] COVID test: Lab Results Component Value Date [id number] Not Detected 05/07/2021 Past medical History: Past [...] DME: none Home Address confirmed as: [address] [address] Social & Family Supports: All names listed below confirmed with patient as current and correct NO: [phone] is incorrect: Extended Emergency Contact Information Primary Emergency Contact: Marcus Estrella [facility] Relation: Spouse Patient ceel Number: [phone] Current Care Provided by: self Provides Primary [...] alcohol?: No Health/Prescription Coverage: Primary Insurance: [place] Payor: [place] / Plan: [place] PART A&B / Product Type: *No Product type* / Secondary Insurance: AARP SUPPLEMENT Prescription Coverage: Yes Preferred Pharmacy: [facility] [place] [id number] [place] [address] [address] [facility] [phone] [facility] - [place], [place] - [address] [facility] [address] [facility] [address] - [place], [place] - [address] [facility] [address] Status: Patient is a : No Primary Care Provider: Patricio Gabriel MD [phone] Patient/Caregiver Goals of Treatment: return home with [...] care hand out. Patient requests referral to [facility]. PHONE: [phone] FAX: [phone] Expected date of discharge: 05/10/21. Referral routed to the [facility] for matching with agency/vendor and to provide [...] planning. Lan Nixon RN BSN CM Neurology Manhole BuilderKinesiologist of Care Management Pager [phone] * Plan of Care - Nicci Bassett [...] - 05/08/2021 1:10 PM EST [facility] [place] Note Patient Name: Yesi Estrella : [id number] MR#: [id number] Case Date: 05/08/2021 Surgeon: Surgeon(s) and Role: [...] level. We alsotook an x-ray with an Gopi under the [...] Once were satisfied with her discectomy, a Villalba was used to feel all around the [...] Operative Note Patient Name: Yesi Estrella : [id number] MR#: [id number] Case Date: 05/08/2021 Surgeon: Surgeon(s) and Role: [...] AM EST Microsurg Techniques, Req Oper Microscope ([id number]) 05/08/2021 9:16 AM EST R L5-S1 disc herniation Dominique W/O Facetec Foramot/Dskc 1/2 Vrt Seg, Lumbar ([id number]) 05/08/2021 9:16 AM EST R L5-S1 disc [...] 05/07/2021 4:50 PM EST RAPID COVID-19 PCR ([facility]) STAT 05/07/2021 3:42 PM EST MRI LUMBAR SPINE WITHOUT CONTRAST STAT 05/07/2021 2:03 PM EST documented in this encounter Results * Urine culture Clean Catch Urine (05/10/2021 8:27 AM EST) Urine Culture No growth (Less than 1,000 cfu/ml). [facility] Clean Catch Urine 05/10/2021 8:27 AM EST 05/10/2021 8:49 AM EST Narrative Resulting Agency Comment Spec In Lab Nancy Fountain MD MICROBIOLOGY - GENER AL ORDERABLES [facility] [place] [address] * COVID-19 PCR (05/10/2021 6:04 AM EST) SARS-CoV-2 RNA Not Detected Not Detected [facility] Comment: This result should be [...] diagnosis of COVID-19 is performed using the Ryan SARS-CoV-2 Assay as authorized by the FDA Emergency Use Authorization (EUA). This EUA assay is intended for In-vitro Diagnostic (IVD) use with respiratory specimens such as nasopharyngeal swabs collected from individuals during the acute phase of infection. This assay is performed based on the instructions for use provided by [employer] and additional guidance provided by CDC and FDA. Testing is performed in the Clinical Genomics [facility] Laboratory within the Department of Pathology and Laboratory Medicine at [facility], certified under the Clinical Laboratory Improvement Amendments [...] fact sheets at the following FDA website: https://www.fda.gov/medical-devices/eghspotfbge-sdfzann-4744-dpete-81-hxeajavyv- use-a fqvzesfsctslj-njixetj-zrinfvi/tqrij-nbtmvegfkfr-apet SARS-CoV-2 RNA Source CITY COUNCILMAN Swab [facility] Nasopharyngeal Swab 05/10/19 6:04 AM EST 05/10/2021 8:05 AM EST Comment:Symptoms->Surveillan ce Narrative Resulting Agency Comment Spec In Lab Nancy Fountain MD MOLECULAR ORDERABLES Performing Organization Address City/State/[facility] Co de Phone Number [facility] [place] [address] * (ABNORMAL) Differential, Automated (05/10/2021 6:03 AM EST) Neutrophil % 74.8 % [facility] Neutrophil Absolute 8.10(H) 1.70 - 6.10 x10(3)/mc L [facility] Lymph % 16.5 % [facility] Lymphocytes Abs 1.8 0.9 - 3.2 x10(3)/mc L [facility] Monocyte % 7.4 % [facility] Monocyte Abs 0.8 0.3 - 0.9 x10(3)/mc L [facility] Eos % 0.6 % [facility] Eosinophils Abs 0.1 0.0 - 0.4 x10(3)/mc L [facility] Basophil % 0.2 % [facility] Baso Absolute 0.0 0.0 - 0.1 x10(3)/mc L [facility] Immature Gran % 0.50 % [facility] Comment: Immature granulocytes(IG's)percentage and absolute count will include metamyelocytes, myelocytes, and promyelocytes. Blood smears from CBCs yielding IG's will be scanned manually for concordance. If this scan disagrees with the automated IG or if promyelocytes are noted, a manual differential will be performed. Immature Gran Absolute 0.05(H) 0.00 - 0.04 x10(3)/mc L [facility] Blood 05/10/2021 6:03 AM EST 05/10/2021 6:21 AM EST Narrative Resulting Agency Comment Spec In Lab Masha Grayson MD HEMATOLOGY ORDERABLE S [facility] [place] [address] * (ABNORMAL) Hemogram (05/10/2021 6:03 AM EST) White Blood Cell 10.8(H) 4.0 - 9.5 x10(3)/ L [facility] Red Blood Cell 3.57(L) 4.00 - 5.21 x10(6)/mc L [facility] Hemoglobin 11.8 11.7 - 15.5 g/dL [facility] Hematocrit 34.3(L) 35.7 - 45.8 % [facility] Mean Cell Volume 96.1(H) 82.6 - 94.4 fL [facility] Mean Cell Hemoglobin 33.1(H) 27.1 - 32.0 pg [facility] Mean Cell Hemoglobin Concentration 34.4 31.7 - 35.0 g/dL [facility] Platelet 174 145 - 357 x10(3)/mc L [facility] RDW Standard Deviation 47.1(H) 37.0 - 46.0 fL [facility] RDW coefficient of variation 13.3 11.5 - 14.1 % [facility] Mean Platelet Volume 10.3 7.6 - 12.9 fL [facility] NRBC% auto 0.0 % [facility] NRBC Absolute 0.000 0.000 - 0.000 x10(3)/mc L [facility] Blood 05/10/2021 6:03 AM EST 05/10/2021 6:21 AM EST Narrative Resulting Agency Comment Spec In Lab Masha Grayson MD HEMATOLOGY ORDERABLE S [facility] [place] [address] * Basic Metabolic Panel (non-fasting) (05/10/2021 6:03 AM EST) Glucose 180 65 - 199 mg/dL [facility] Comment:Diabetes: >=200 mg/d L plus symptoms Blood Urea Nitrogen 12 8 - 18 mg/dL [facility] Creatinine 0.70 0.70 - 1.20 mg/dL [facility] Sodium 139 135 - 145 mmol/L [facility] Potassium 3.9 3.5 - 5.0 mmol/L [facility] Comment: Please note: ??Patients with WBC >100,000 may have falsely elevated Potassium levels. ??For accurate Potassium quantification in these patients send serum separator tube (gold top) for subsequent determinations. ??Contact the Clinical Chemistry Laboratory if there are any questions. Chloride 103 98 - 107 mmol/L [facility] Carbon Dioxide 26 22 - 31 mmol/L [facility] Anion Gap 10 5 - 15 mmol/L [facility] Calcium 8.8 8.5 - 10.5 mg/dL [facility] Est Glomerular Filtration Rate 87 >=60 mL/min/1. 73 m?? [facility] Comment: This patient? s estimated [...] In Lab Nancy Fountain MD CHEMISTRY ORDERABLES [facility] [place] [address] * (ABNORMAL) Differential, Automated (05/09/2021 5:55 AM EST) Neutrophil % 84.6 % [facility] Neutrophil Absolute 11.14(H) 1.70 - 6.10 x10(3)/mc L [facility] Lymph % 8.7 % [facility] Lymphocytes Abs 1.2 0.9 - 3.2 x10(3)/mc L [facility] Monocyte % 6.0 % [facility] Monocyte Abs 0.8 0.3 - 0.9 x10(3)/mc L [facility] Eos % 0.0 % [facility] Eosinophils Abs 0.0 0.0 - 0.4 x10(3)/mc L [facility] Basophil % 0.1 % [facility] Baso Absolute 0.0 0.0 - 0.1 x10(3)/mc L [facility] Immature Gran % 0.60 % [facility] Comment: Immature granulocytes(IG's)percentage and absolute count will include metamyelocytes, myelocytes, and promyelocytes. Blood smears from CBCs yielding IG's will be scanned manually for concordance. If this scan disagrees with the automated IG or if promyelocytes are noted, a manual differential will be performed. Immature Gran Absolute 0.08(H) 0.00 - 0.04 x10(3)/mc L [facility] Blood 05/09/2021 5:55 AM EST 05/09/2021 6:16 AM EST Narrative Resulting Agency Comment Spec In Lab Masha Grayson MD HEMATOLOGY ORDERABLE S [facility] [place] [address] * (ABNORMAL) Hemogram (05/09/2021 5:55 AM EST) White Blood Cell 13.2(H) 4.0 - 9.5 x10(3)/mc L [facility] Red Blood Cell 3.84(L) 4.00 - 5.21 x10(6)/mc L [facility] Hemoglobin 12.8 11.7 - 15.5 g/dL [facility] Hematocrit 36.4 35.7 - 45.8 % [facility] Mean Cell Volume 94.8(H) 82.6 - 94.4 fL [facility] Mean Cell Hemoglobin 33.3(H) 27.1 - 32.0 pg [facility] Mean Cell Hemoglobin Concentration 35.2(H) 31.7 - 35.0 g/dL [facility] Platelet 184 145 - 357 x10(3)/mc L [facility] RDW Standard Deviation 44.3 37.0 - 46.0 [facility] RDW coefficient of variation 12.9 11.5 - 14.1 % [facility] Mean Platelet Volume 10.3 7.6 - 12.9 [facility] NRBC% auto 0.0 % [facility] NRBC Absolute 0.000 0.000 - 0.000 x10(3)/mc L [facility] Blood 05/09/2021 5:55 AM EST 05/09/2021 6:16 AM EST Narrative Resulting Agency Comment Spec In Lab Masha Grayson MD HEMATOLOGY ORDERABLE S [facility] [place] [address] * Basic Metabolic Panel (non-fasting) (05/09/2021 5:55 AM EST) Glucose 198 65 - 199 mg/dL [facility] Comment:Diabetes: >=200 mg/d L plus symptoms Blood Urea Nitrogen 12 8 - 18 mg/dL [facility] Creatinine 0.72 0.70 - 1.20 mg/dL [facility] Sodium 137 135 - 145 mmol/L [facility] Potassium 4.2 3.5 - 5.0 mmol/L [facility] Comment: Please note: ??Patients with WBC >100,000 may have falsely elevated Potassium levels. ??For accurate Potassium quantification in these patients send serum separator tube (gold top) for subsequent determinations. ??Contact the Clinical Chemistry Laboratory if there are any questions. Chloride 104 98 - 107 mmol/L [facility] Carbon Dioxide 22 22 - 31 mmol/L [facility] Anion Gap 11 5 - 15 mmol/L [facility] Calcium 8.6 8.5 - 10.5 mg/dL [facility] Est Glomerular Filtration Rate 84 >=60 mL/min/1. 73 m?? [facility] Comment: This patient? s estimated [...] In Lab Nancy Fountain MD CHEMISTRY ORDERABLES [facility] [place] [address] * XR Fluoro No Rad <1Hr - OR Use (05/08/2021 12:44 PM EST) Narrative Dicom, Auditing User - 05/08/2021 12:45 PM EST This exam is auto-finalizing. No interpretation was done. Nancy Fountain MD IMG FLUORO ORDERABLE S * Differential, Automated (05/08/2021 6:44 AM EST) Neutrophil % 51.5 % [facility] Neutrophil Absolute 3.85 1.70 - 6.10 x10(3)/[facility] Lymph % 38.3 % [facility] Lymphocytes Abs 2.9 0.9 - 3.2 x10(3)/[facility] Monocyte % 7.0 % [facility] Monocyte Abs 0.5 0.3 - 0.9 x10(3)/[facility] Eos % 2.8 % [facility] Eosinophils Abs 0.2 0.0 - 0.4 x10(3)/[facility] Basophil % 0.3 % [facility] Baso Absolute 0.0 0.0 - 0.1 x10(3)/[facility] Immature Gran % 0.10 % [facility] Comment: Immature granulocytes(IG's)percentage and absolute count will include metamyelocytes, myelocytes, and promyelocytes. Blood smears from CBCs yielding IG's will be scanned manually for concordance. If this scan disagrees with the automated IG or if promyelocytes are noted, a manual differential will be performed. Immature Gran Absolute 0.01 0.00 - 0.04 x10(3)/mcL [facility] Blood 05/08/2021 6:44 AM EST 05/08/2021 6:56 AM EST Narrative Resulting Agency Comment Spec In Lab Masha Grasyon MD HEMATOLOGY ORDERABLE S [facility] [place] [address] * (ABNORMAL) Hemogram (05/08/2021 6:44 AM EST) White Blood Cell 7.5 4.0 - 9.5 x10(3)/ L [facility] Red Blood Cell 4.02 4.00 - 5.21 x10(6)/[facility] Hemoglobin 13.3 11.7 - 15.5 g/dL [facility] Hematocrit 38.7 35.7 - 45.8 % [facility] Mean Cell Volume 96.3(H) 82.6 - 94.4 fL [facility] Mean Cell Hemoglobin 33.1(H) 27.1 - 32.0 pg [facility] Mean Cell Hemoglobin Concentration 34.4 31.7 - 35.0 g/dL [facility] Platelet 191 145 - 357 x10(3)/[facility] RDW Standard Deviation 46.2(H) 37.0 - 46.0 [facility] RDW coefficient of variation 13.1 11.5 - 14.1 % [facility] Mean Platelet Volume 10.0 7.6 - 12.9 [facility] NRBC% auto 0.0 % [facility] NRBC Absolute 0.000 0.000 - 0.000 x10(3)/ L [facility] Blood 05/08/2021 6:44 AM EST 05/08/2021 6:56 AM EST Narrative Resulting Agency Comment Spec In Lab Masha Grayson MD HEMATOLOGY ORDERABLE S [facility] [place] [address] * (ABNORMAL) Basic Metabolic Panel (non-fasting) (05/08/2021 6:44 AM EST) Glucose 106 65 - 199 mg/dL [facility] Comment:Diabetes: >=200 mg/d L plus symptoms Blood Urea Nitrogen 14 8 - 18 mg/dL [facility] Creatinine 0.84 0.70 - 1.20 mg/dL [facility] Sodium 134(L) 135 - 145 mmol/L [facility] Potassium 3.8 3.5 - 5.0 mmol/L [facility] Comment: Please note: ??Patients with WBC >100,000 may have falsely elevated Potassium levels. ??For accurate Potassium quantification in these patients send serum separator tube (gold top) for subsequent determinations. ??Contact the Clinical Chemistry Laboratory if there are any questions. Chloride 101 98 - 107 mmol/L [facility] Carbon Dioxide 26 22 - 31 mmol/L [facility] Anion Gap 7 5 - 15 mmol/L [facility] Calcium 8.7 8.5 - 10.5 mg/dL [facility] Est Glomerular Filtration Rate 70 >=60 mL/min/1. 73 m?? [facility] Comment: This patient? s estimated [...] Fountain MD CHEMISTRY ORDERABLES Performing Organization Address [facility] de Phone Number [facility] [place] [address] * Urine Hold (05/08/2021 12:31 AM EST) Hold, Urine Sample in lab. [facility] Urine Micro Spec / Unknown 05/08/2021 12:31 AM EST 05/08/2021 12:55 AM EST Masha Grayson MD URINE ORDERABLES Performing Organization Address [facility] Phone Number [facility] [place] [address] * (ABNORMAL) Urine culture Clean Catch Urine (05/08/2021 12:31 AM EST) [facility] [address] Urine Culture Greater than 100,000 cfu/ml Normal mucosal pastor Susceptibilit y testing not routinely performed for Coagulase Negative Staphylococcu s species and other Gram Positive organisms from urine. (A) [facility] Urine 05/08/2021 12:3 1 AM EST 05/08/2021 2:11 AM EST Narrative Resulting Agency Comment Spec In Lab Nancy Fountain MD MICROBIOLOGY - GENER AL ORDERABLES Performing Organization Address [facility] de Phone Number [facility] [place] [address] * Type and Screen Validity (05/07/2021 4:50 PM EST) T&S only valid at [facility] Comment:This Type and Screen result is only valid at the [facility] Blood 05/07/2021 4:50 PM EST 05/07/2021 4:59 PM EST Narrative Resulting Agency Comment Spec In Lab Masha Grayson MD BLOOD BANK LAB ORDER IZZY Performing Organization Address City/[facility]/ZIP Co de Phone Number [facility] [place] [address] * ABORH Recheck Status (05/07/2021 4:50 PM EST) ABORH Type Recheck Completed [facility] Blood 05/07/2021 4:50 PM EST 05/07/2021 4:59 PM EST Narrative Resulting Agency Comment Spec In Lab Masha Grayson MD BLOOD BANK LAB ORDER IZZY Performing Organization Address [facility] Co de Phone Number [facility] [place] [address] * Differential, Automated (05/07/2021 4:50 PM EST) Pathologist [facility] Neutrophil % 55.6 % [facility] Neutrophil Absolute 5.07 1.70 - 6.10 x10(3)/[facility] Lymph % 34.1 % [facility] Lymphocytes Abs 3.1 0.9 - 3.2 x10(3)/[facility] Monocyte % 7.6 % [facility] Monocyte Abs 0.7 0.3 - 0.9 x10(3)/[facility] Eos % 2.1 % [facility] Eosinophils Abs 0.2 0.0 - 0.4 x10(3)/[facility] Basophil % 0.4 % [facility] Baso Absolute 0.0 0.0 - 0.1 x10(3)/[facility] Immature Gran % 0.20 % [facility] Comment: Immature granulocytes(IG's)percentage and absolute count will include metamyelocytes, myelocytes, and promyelocytes. Blood smears from CBCs yielding IG's will be scanned manually for concordance. If this scan disagrees with the automated IG or if promyelocytes are noted, a manual differential will be performed. Immature Gran Absolute 0.02 0.00 - 0.04 x10(3)/mcL [facility] Blood 05/07/2021 4:50 PM EST 05/07/2021 5:02 PM EST Narrative Resulting Agency Comment Spec In Lab Masha Grayson MD HEMATOLOGY ORDERABLE S [facility] [place] [address] * (ABNORMAL) Hemogram (05/07/2021 4:50 PM EST) White Blood Cell 9.1 4.0 - 9.5 x10(3)/[facility] Red Blood Cell 4.48 4.00 - 5.21 x10(6)/[facility] Hemoglobin 14.6 11.7 - 15.5 g/dL [facility] Hematocrit 43.1 35.7 - 45.8 % [facility] Mean Cell Volume 96.2(H) 82.6 - 94.4 fL [facility] Mean Cell Hemoglobin 32.6(H) 27.1 - 32.0 pg [facility] Mean Cell Hemoglobin Concentration 33.9 31.7 - 35.0 g/dL [facility] Platelet 230 145 - 357 x10(3)/[facility] RDW Standard Deviation 46.2(H) 37.0 - 46.0 [facility] RDW coefficient of variation 13.0 11.5 - 14.1 % [facility] Mean Platelet Volume 10.3 7.6 - 12.9 [facility] NRBC% auto 0.0 % [facility] NRBC Absolute 0.000 0.000 - 0.000 x10(3)/ L [facility] Blood 05/07/2021 4:50 PM EST 05/07/2021 5:02 PM EST Narrative Resulting Agency Comment Spec In Lab Masha Grayson MD HEMATOLOGY ORDERABLE S Performing Organization Address City/[facility]/ZIP Co de Phone Number [facility] [place] [address] * Antibody screen (05/07/2021 4:50 PM EST) Ab Screen Interp Negative [facility] Expires at [id number] on: 05/10/2021 [facility] Blood 05/07/2021 4:50 PM EST 05/07/2021 4:59 PM EST Narrative Resulting Agency Comment Spec In Lab Masha Grayson MD BLOOD BANK LAB ORDER IZZY Performing Organization Address City/[facility]/ZIP Co de Phone Number [facility] [place] [address] * ABO/Rh Typing (05/07/2021 4:50 PM EST) ABORH Type O Pos [facility] Blood 05/07/2021 4:50 PM EST 05/07/2021 4:59 PM EST Narrative Resulting Agency Comment Spec In Lab Masha Grayson MD BLOOD BANK LAB ORDER IZZY Performing Organization Address City/[facility]/ZIP Co de Phone Number [facility] [place] [address] * Basic Metabolic Panel (non-fasting) (05/07/2021 4:50 PM EST) Glucose 111 65 - 199 mg/dL [facility] Comment:Diabetes: >=200 mg/d L plus symptoms Blood Urea Nitrogen 15 8 - 18 mg/dL [facility] Creatinine 0.84 0.70 - 1.20 mg/dL [facility] Sodium 139 135 - 145 mmol/L [facility] Potassium 4.4 3.5 - 5.0 mmol/L [facility] Comment: Please note: ??Patients with WBC >100,000 may have falsely elevated Potassium levels. ??For accurate Potassium quantification in these patients send serum separator tube (gold top) for subsequent determinations. ??Contact the Clinical Chemistry Laboratory if there are any questions. Chloride 103 98 - 107 mmol/L [facility] Carbon Dioxide 26 22 - 31 mmol/L [facility] Anion Gap 10 5 - 15 mmol/L [facility] Calcium 9.4 8.5 - 10.5 mg/dL [facility] Est Glomerular Filtration Rate 70 >=60 mL/min/1. 73 m?? [facility] Comment: This patient? s estimated [...] In Lab Nancy Fountain MD CHEMISTRY ORDERABLES [facility] [place] [address] * COVID-19 PCR (05/07/2021 3:42 PM EST) SARS-CoV-2 RNA (Rapid) Not Detected Not Detected [facility] Comment: This result should be interpreted in combination with the clinical observations, patient history and epidemiological information. For testing of asymptomatic individuals, assay performance characteristics and clinical utility have not been evaluated. Testing for SARS-CoV-2 (Severe acute respiratory syndrome coronavirus 2, formerly known as 2019 novel coronavirus or 2019-nCoV) to aid in the diagnosis of COVID-19 is performed using the [employer] COVID-19 Direct Assay by [employer] as authorized by the FDA issued Emergency [...] Department of Pathology and Laboratory Medicine at [facility], certified under the Clinical Laboratory Improvement Amendments [...] fact sheets at the following FDA website: https://www.fda.gov/medical-devices/oihuxzoleid-dfefxjy-7062-nkcyb-95-atlcsftay- use-a ngburqyvxepsq-byebrqw-drvrqcv/lbaef-hapshlfcodx-gtge SARS-CoV-2 Source [place] [employer] [facility] Nasopharyngeal Swab 05/07/19 3:42 PM EST 05/07/2021 5:16 PM EST Comment:Symptoms->Surveillan ce Narrative Resulting Agency Comment Spec In Lab Edith J Granados MD MICROBIOLOGY - G ENERAL ORDERABLES [facility] [place] [address] * MRI Lumbar Spine wo Contrast (Generic) [...] who have questions please contact the health home care giver that requested your imaging first. ? Electronically signed by: Hermann Villarreal MD, [facility] ([phone]), at 05/07/2021 2:16 PM Narrative 05/07/2021 2:16 [...] the clinical situation (Reference- [employer] Et Al, [id number]). Findings: (Prevalence in patients without low back [...] patients who have questions please contactthe health home care giver that requested your imaging first. Electronically signed by: Hermann Villarreal MD, [facility]([phone]), at 05/07/2021 2:16 PM Edith Granados MD IMG MRI ORDERABL ES documented in this encounter Visit Diagnoses Diagnosis Back pain- Primary Backache, unspecified Back pain Backache, unspecified Radiculopathy of lumbar region Thoracic or lumbosacral neuritis or radiculitis, unspecified S/P Revision Right L4-S1 decompression, Right L4-5 diskectomy - 09/14/13 (Evonne) Personal history of surgery to other organs Right lumbar radiculopathy with L4-L5 HNP Thoracic or lumbosacral neuritis or radiculitis, unspecified documented in this encounter Admitting Diagnoses [...] 300 mg HYDROmorphone (Dilaudid) (1 mg/mL) injection syringe 1 mg 1 mg, Intravenous, ONCE, 1 dose, On Fri05/07/21 at 1248, STAT Given 05/07/2021 1:00 PM EST 1 mg HYDROmorphone (Dilaudid) (1 mg/mL) injection syringe 1 mg 1 mg, Intravenous, ONCE, 1 dose, On Fri05/07/21 at 1459, STAT Given 05/07/2021 3:01 PM EST 1 mg HYDROmorphone (Dilaudid) (2 mg/mL) multi-dose injection solution 0.6 mg 0.6 mg, [...] fentaNYL for breakthrough pain, PACU Recovery, Routine Given 05/08/2021 12:55 PM EST 0.6 mg HYDROmorphone (Dilaudid) tablet 2 mg 2 mg, Oral, ONCE, 1 dose, On Fri05/07/21 at 1112, STAT Given 05/07/2021 11:19 AM EST 2 mg ketorolac (Toradol) (30 mg/mL) injection 15 mg 15 mg, Intravenous, EVERY 8 HOURS PRN, Starting on Fri05/07/21 at 1110, Until Fri05/09/21 at 0716, Pain, Routine Given 05/07/2021 10:56 PM EST 15 mg Given 05/07/2021 1:17 PM EST 15 mg labetaloL (Normodyne) (5 mg/mL) injection solution 10-20 [...] dose, Starting on Fri05/08/21 at 1938, Until Fri05/10/21 at 1743, for discomfort with PIV insertion, Recovery (Recovery-Hospital Unit), Routine lisinopriL (Zestril) tablet 10 mg 10 mg, [...] constipation., Routine methocarbamoL (Robaxin) tablet 500 mg 500 mg, Oral, EVERY 6 HOURS, 8 doses, First dose on Fri05/07/21 at 1622, Last dose on Fri05/09/21 at 1022, Routine Given 05/09/2021 9:48 AM EST 500 mg Given 05/09/2021 3:40 AM EST 500 mg Given 05/08/2021 10:17 PM EST 500 mg ondansetron (pf) (Zofran) (2 mg/mL) injection 4-8 [...] at 1618, Until Fri05/10/21 at 1743, Pain, severe pain (7-10), Routine [...] (Recovery-Hospital Unit), Routine sodium chloride 0.9% infusion 100 mL/hr, Intravenous, CONTINUOUS, Starting on Fri05/08/21 at 0000, Until Fri05/09/21 at 0710 New Bag 05/09/2021 6:06 AM EST 100 mL/hr 100 mL/hr New Bag 05/08/2021 9:20 PM EST 100 [...] Patient/family refused)1330 (MAR Unhold - Provider: Gabriela Mena RN)1334 (Given - Provider: Gabriela Mena RN)1850 (Given - Provider: Prerna Youngblood RN) 0039 (Given - Provider: Nicci Bassett, RAFA)0601 (Given - Provider: Nicci Bassett RN)1238 (Given - Provider: Yulissa Elkins RN)1820 (Given - Provider: Yulissa Elkins RN) 0013 (Given - Provider: Nicci Bassett RN)0608 (Given - Provider: Nicci Bassett RN)1324 (Given - Provider: Yulissa Elkins RN) atenoloL (Tenormin) tablet 50 mg 50 mg, [...] Until Discontinued, Routine 0039 (Given - Provider: aCn Dwyer RN)0900 (Not Given - Provider: Prerna Youngblood RN - Reason: Transfer to a Procedural area)0917 (MAY Hold - Provider: Admin Adt - Reason: Transfer to a Procedural area)1509 (MAY Unhold - Provider: Admin Adt)1608 (Given - Provider: Prerna Youngblood RN)211 (Given - Provider: Nicci Bassett RN) 0941 (Given - Provider: Yulissa Elkins RN)1542 (Given - Provider: Yulissa Elkins RN)2113 (Given - Provider: Nicci Bassett RN) 0945 (Given - Provider: Yulissa Elkins, RAFA)1500 (Due - Provider: Admin Adt) lidocaine (Lidoderm) [...] Reason: See comment - Comment: BP 98/53) 2111 (Given - Provider: Nicci Bassett RN) methocarbamoL [...] Elle Hackett RN)1607 (Given - Provider: Prerna Youngblood, RAFA)2217 (Given - Provider: Nicci Bassett, RAFA) 0340 (Given - Provider: Nicci Bassett RN)0948 (Given - Provider: Yulissa Elkins, RAFA) pantoprazole EC (Protonix) tablet 40 mg 40 mg, Oral, DAILY, First dose on Fri05/08/21 at 0900, Until Discontinued, DO NOT CRUSH OR OPEN, Routine 09 (MAY Hold - Provider: Admin Adt - Reason: Transfer to a Procedural area)1509 (MAY Unhold - Provider: Admin Adt)1515 (Not Given - Provider: Prerna Youngblood RN - Reason: Patient/family refused - Comment: wants to rest) 0941 (Given - Provider: Yulissa Elkins RN) 0945 (Given - Provider: Yulissa Elkins, RAFA) senna-docusate (Pericolace) 8.6-50 mg per tablet 2 [...] RN) 0941 (Given - Provider: Yulissa Elkins, RAFA)211 (Given - Provider: Nicci Bassett RN) 0945 (Given - Provider: Yulissa Elkins RN) sodium chloride 0.9 % (flush) (BD PosiFlush Normal Saline 0.9) flush 5 mL 5 mL, Intravenous, 2 TIMES DAILY, First dose on Fri05/08/21 at 2100, Until Discontinued, Recovery (Recovery-Hospital Unit), Routine 2114 (Given - Provider: Nicci Bassett, RAFA) 0943 (Given - Provider: Yulissa Elkins, RN)211 (Given - Provider: Nicci Bassett RN) 0948 (Given - Provider: Yulissa Elkins, RAFA) Continuous Medication Order 05/08/2021 05/09/2021 05/10/2021 sodium [...] Hackett RN)2120 (New Bag - Provider: Nicci Bassett RN) 0606 (New Bag - Provider: Nicci Bassett RN)0710 (Stopped - Provider: Yulissa Elkins, RAFA) PRN Medication Order 05/08/2021 05/09/2021 05/10/2021 bisacodyL [...] PRN, Starting on Fri05/08/21 at 1201, Until Tu05/08/21 at 1429, Pain, For Moderate to Severe [...] Ghislaine 05/10/21 at 1743, Intra-Operative (Intra-Procedure), Routine 09 (Given - Provider: Luis Fernando Luz MD) [...] times 1 in 4 hours., Routine 916 ([facility] Hold - Provider: Admin Adt - Reason: Transfer to a Procedural area)1509 ([facility] Unhold - Provider: Admin Adt) magnesium [...] times 1 in 4 hours., Routine 916 (MAR Hold - Provider: Admin Adt - Reason: Transfer to a Procedural area)1509 ([facility] Unhold - Provider: Admin Adt) magnesium [...] be given concomitantly for constipation., Routine 09 ([facility] Hold - Provider: Admin Adt - Reason: Transfer to a Procedural area)1509 ([facility] Unhold - Provider: Admin Adt) ondansetron (pf) (Zofran) (2 mg/mL) injection 4-8 mg(Linked Group 4) 4-8 mg, Intravenous, EVERY 8 HOURS PRN, Starting on 05/07/21 at 1616, Until Ghislaine 05/10/21 at 1743, Nausea, If multiple antiemetics are ordered, use ondansetron first, prochlorperazine second, and metaclopramide third. Start with 4mg and if ineffective in 30 minutes, give an additional 4mg 09 ([facility] Hold - Provider: Admin Adt - Reason: Transfer to a Procedural area)1509 ([facility] Unhold - Provider: Admin Adt) ondansetron [...] 45 minutes, give an additional 4mg, Routine 09 ([facility] Hold - Provider: Admin Adt - Reason: Transfer to a Procedural area)1509 ([facility] Unhold - Provider: Admin Adt) oxyCODONE (Roxicodone) tablet 10 mg(Linked Group 5) 10 mg, Oral, EVERY 4 HOURS PRN, Starting on Fri05/07/21 at 1618, Until Ghislaine 05/10/21 at 1743, Pain, severe pain (7-10), Routine 0039 (Given - Provider: Can Dwyer RN)0443 (Given - Provider: Donna Shipman RN)0917 ([facility] Hold - Provider: Admin Adt - Reason: Transfer to a Procedural area)1247 ([facility] Unhold - Provider: Elle Hackett RN)1335 (Given - Provider: Gabriela Mena RN) 0040 (Given - Provider: Nicci Bassett, RAFA)0941 (See Alternative - Provider: Yulissa Elkins, RAFA)1404 (Given - Provider: Yulissa Elkins RN) 0019 (Given - Provider: Nicci Bassett, RAFA)0434 (Given - Provider: Nicci Bassett, RAFA) oxyCODONE (Roxicodone) tablet 5 mg(Linked Group 5) 5 mg, Oral, EVERY 4 HOURS PRN, Starting on Fri05/07/21 at 1618, Until Ghislaine 05/10/21 at 1743, Pain, moderate pain (4-6), Routine 0039 (See Alternative - Provider: Can Dwyer RN)0443 (See Alternative - Provider: Donna Shipman RN)0917 (MAY Hold - Provider: Admin Adt - Reason: Transfer to a Procedural area)1247 (MAY Unhold - Provider: Elle Hackett RN)1335 (See Alternative - Provider: Gabriela Mena RN) 0040 (See Alternative - Provider: Nicci Bassett, RAFA)0941 (Given - Provider: Yulissa Elkins, RAFA)1404 (See Alternative - Provider: Yulissa Elkins, RAFA) 0019 (See Alternative - Provider: Nicci Bassett RN)0434 (See Alternative - Provider: Nicci Bassett, RAFA) polyethylene glycoL (Miralax) packet 17 g 17 [...] area)1509 (MAY Unhold - Provider: Admin Adt) sodium chloride [...] 1743, Intra-Operative (Intra-Procedure) 1016 (Given - Provider: Nanyc Fountain MD - Comment: Used PRN with [...] Routine documented in this encounter Care Teams Sign [employer]ctor [employer] Repairer Relationship Specialty Start Date End Date Patricio Gabriel MD [address] [place] [id number] PCP - General 02/20/10 documented as of this encounter
--- OUTSIDE RECORDS SUMMARY | 2024-04-12 14:08 | XMS_ITS | Encounter Summary ---
[facility] Organization [facility] Address [facility] [place] [address] Care Team Providers Care Net Mobile Developer Name Role Phone Patricio Gabriel MD Primary Care Provider Encounter Details Date Type Department Care Team (Latest Contact Info) Description 01/20/2018 - 01/20/2018 12:04 AM EDT Hospital Encounter Radiology Library at [facility] [place] [address] Adrian Vazquez MD [facility] [place] [address] Discharge Disposition: Home Social History Tobacco Use [...] Procedure Name Priority Date/Time Associated Diagnosis Comments FILM LIBRARY STORAGE ONLY DX CHEST Routine 01/20/2018 12:00 AM EDT documented in this encounter Results * Film Library- Storage Only DX Chest (01/20/2018 12:00 AM EDT) Narrative [facility] - 01/21/2018 1:08 AM EDT This exam is for storage only and is auto-finalizing. Adrian Vazquez MD IMG FILM LIBRARY OR DERABLES Performing Organization Address City/State/[facility] Co de Phone Number [place], [place] documented in this encounter Visit Diagnoses Not on filedocumented in this encounter Care Teams Net Mobile Developer Relationship Specialty Start Date End Date Patricio Gabriel MD [address] [place] [id number] PCP - General 02/20/10 documented as of this encounter
--- OUTSIDE RECORDS SUMMARY | 2024-04-12 14:08 | XMS_ITS | Encounter Summary ---
Author Organization [facility] Address [facility] [place] [address] Care Team Providers Care Billet Sawyer Name Role Phone Patricio Gabriel MD Primary Care Provider Encounter Details Date Type Department Care Team (Latest Contact Info) Description 01/20/2018 12:05 AM EDT - 01/20/2018 11:59 PM EDT Hospital Encounter Radiology Library at [facility] [place] [address] Adrian Vazquez MD [facility] [place] [address] Discharge Disposition: Home Social History Tobacco Use [...] Associated Diagnosis Comments FILM LIBRARY STORAGE ONLY CT CHEST ABDOMEN PELVIS Routine 01/20/2018 12:05 AM EDT documented in this encounter Results * Film Library- Storage Only CT Chest Abdomen Pelvis (01/20/2018 12:05 AM EDT) Narrative [facility] - 01/21/2018 1:10 AM EDT This exam is for storage only and is auto-finalizing. Adrian Vazquez MD IMG FILM LIBRARY OR DERABLES Performing Organization Address City/State/[facility] Co de Phone Number [place], [place] documented in this encounter Visit Diagnoses Not on filedocumented in this encounter Care Teams Billet Sawyer Relationship Specialty Start Date End Date Patricio Gabriel MD [address] [place] [id number] PCP - General 02/20/10 documented as of this encounter
--- OUTSIDE RECORDS SUMMARY | 2024-04-12 14:08 | XMS_ITS | Encounter Summary ---
Author Organization [facility] [place] [address] Care Team Providers Care Nail Technician Name Role Phone Patricio Gabriel MD Primary Care Provider [phone] Encounter Details Date Type Department Care Team (Latest Contact Info) Description 02/13/2023 Travel Social History Tobacco Use Types Packs/Day [...] on filedocumented in this encounter Care Teams Nail Technician Relationship Specialty Start Date End Date Patricio Gabriel MD [address] [phone] PCP - General 02/20/10 documented as of this encounter
--- OUTSIDE RECORDS SUMMARY | 2024-04-12 14:09 | XMS_ITS | Encounter Summary ---
Author Organization [facility] Address [address] [place] [address] Care Team Providers Care Electronic Prepress Operator Name Role Phone Patricio Gabriel MD Primary Care Provider [phone] Encounter Details Date Type Department Care Team (Late st Contact Info) Description 06/20/2022 Lab Requisition [facility] Pathology & Laboratory Medicine - [address] [address] Outr Resulting Lab, Provider Social History Tobacco Use Types Packs/Day Years Used Date Smoking Tobacco: Never Assessed Interpersonal Safety Answer Date Record ed Physically Hurt Never 10/31/2019 Verbally Threaten Not on file 10/31/2019 Comments Unknown Sex and Gender Information Value Date Recorded Sex Assigned at Not on file Legal Sex Female 18:03 EST Gender Identity Not on file Sexual Orientation Not on file documented as of this encounter Plan of Treatment Not on file documented as of this encounter Procedures Procedure Name Priority Date/Time Associated Diagnosis Comments HEPATITIS C AB W REFLEX TO HCV RNA BY PCR Routine 06/19/2022 10:50 EDT HEPATITIS B SURFACE ANTIGEN Routine 06/19/2022 10:50 EDT documented in this encounter Results * HEPATITIS B SURFACE ANTIGEN (06/19/2022 10:50 EDT) Hep B Surface Ag Negative Negative 06/21/2022 12:09 EDT [facility] Blood VENOUS BLOOD / Unknown 06/19/2022 10:50 EDT 06/20/2022 17:51 EDT us Provider Outr Resulting Lab CHEMISTRY & BLOOD GA S ORDERABLES Final Result Performing Organization Address [facility] Co de Phone Number [facility] [address] [place] [address] * HEPATITIS C AB W REFLEX TO HCV RNA BY PCR (06/19/2022 10:50 EDT) Hep C Antibody Negative Negative 06/21/2022 9:30 EDT [facility] Blood VENOUS BLOOD / Unknown 06/19/2022 10:50 EDT 06/20/2022 17:51 EDT us Provider Outr Resulting Lab CHEMISTRY & BLOOD GA S ORDERABLES Final Result Performing Organization Address [facility] Co de Phone Number [facility] [address] [place] [address] documented in this encounter Visit Diagnoses Not on filedocumented in this encounter Care Teams Electronic Prepress Operator Relationship Specialty Start Date End Date Patricio Gabriel MD [address] [place] [address] PCP - General 02/01/09 documented as of this encounter
--- OUTSIDE RECORDS SUMMARY | 2024-04-12 14:09 | XMS_ITS | Encounter Summary ---
Author Organization [facility] [place] [address] Care Team Providers Care Plane Tender Name Role Phone Malinda Mcmillan MD Primary Care Provider Encounter Details Date Type Department Care Team (Late st Contact Info) Description 09/14/2013 1:26 PM EDT - 09/14/2013 4:54 PM EDT Surgery [place] [address] Tawanda Diego MD [facility] [place] [address] EA ADD'L VERTEBRAL SEGMENT CERVICAL, THORACIC, LUMBAR (WRVU 3.47) Social History Tobacco Use Types Packs/Day Years Used Date Smoking Tobacco: Former Cigarettes Q uit: 07/29/2013 Smokeless Tobacco: Never Sex and Gender Information Value Date Recorded Sex Assigned at Not on file Gender Identity Not on file Sexual Orientation Not on file documented as of this encounter Last Filed Vital Signs Vital Sign Reading Time Taken Comments Blood Pressure 145/109 09/14/2013 12:06 PM EDT Pulse 63 09/14/2013 12:06 PM EDT Temperature 36.6 ??C (97.9 ??F) 09/14/2013 12:06 PM E DT Respiratory Rate 16 09/14/2013 12:06 PM EDT Oxygen Saturation 99% 09/14/2013 12:06 PM EDT Inhaled Oxygen Concentration - - Weight 68 kg (150 lb) 09/14/2013 12:06 PM EDT Height 165.1 cm (5' 5) 09/14/2013 12:06 PM EDT Body Mass Index 24.95 09/15/2013 7:39 PM EDT documented in this encounter Discharge Instructions * Discharge Instructions* Onel Rutherford MD - 09/17/2013 1:40 PM EDT Activity: 1. You may perform your daily activities as tolerated but minimize bending at the waist greater than 90 degrees, twisting around your waist, or lifting [...] constipation, so increase your intake of fluids and fiber while you are taking them. 3. You should also take an heph-vbe-utqrjoo stool softener, such as Colace or Senna, to facilitate a bowel movement. Drivin. You are not allowed to [...] medication, please contact the Spine Center Prescription Lineat [phone]. PRESCRIPTION RENEWAL REQUESTS CAN TAKE UP TO 3 DAYS TO FILL. YOU WILL BE REQUIRED TO CATHEAD WORKER YOUR NARCOTIC REFILL PRESCRIPTION IN PERSON AT [facility] OR IT CAN BE MAILED TO YOUR PHARMACY. Wound Care/Shower/Bath: 1. For the first 72 hours after surgery, shower with a clear plastic Tegaderm dressing covering your wound to keep it dry. 2. After 72 hours you may remove the plastic dressing. At this point you may allow water to run over the wound but do not scrub the surrounding skin. Gently pat dry with a clean, dry towel. 3. At this time you may replace the plastic dressing with clean, dry gauze held in place with tape.Any bandage over the wound should be dry [...] tubs, bath tubs, etc) for at least four weeks until the incision has completely healed. 6. [...] fallen off already. PLEASE CALL US AT [phone] TO SPEAK WITH A SPINE CENTER NURSE [...] Important Phone Numbers: Clinical issues, nurse questions: [phone] Medication renewals: [phone] Appointments for Rebecca Diego : [phone] Follow Up Appointments: 1. You will have follow-up appointments at [facility] as indicated in the ???Future Appointments and [...] clinic on 09/23/13 at 1:00 PM to discuss the changes and outpatient studies that were recommended by the Hospital Medicine team. Future Appointments Date Time Provider Department Center 10/13/2013 1:00 PM Tawanda Diego MD [facility] documented in this encounter Medications at Time of Discharge Medication Sig Dispensed Refills Start Date End Date acetaminophen (TYLENOL) 500 mg tablet Take 2 tablets by mouth every 8 hours. 30 tablet 1 09/17/2013 polyethylene glycol (MIRALAX) 17 gram packet Take 17 g by mouth 2 times daily for 3 days. 14 each 0 09/17/2013 09/20/2013 atenolol (TENORMIN) 25 mg tablet Take 1 tablet by mouth daily. 30 tablet 0 09/17/2013 01/18/2016 HYDROmorphone (DILAUDID) 2 mg tablet Take 1-3 tablets by mouth every 3 hours as needed for Pain. 100 tablet 0 09/17/2013 09/21/2013 oxyCODONE (OXYCONTIN) 10 mg CR tablet Take 1 tablet by mouth twice daily for 5 days, then take 1 tablet by mouth daily for the next 3 days. 13 tablet 0 09/17/2013 10/14/2013 senna-docusate (PERICOLACE) 8.6-50 mg per tablet Take 1-4 tablets by mouth 2 times daily. 60 tablet 0 09/17/2013 10/21/2013 aspirin 325 mg EC tablet Take 1 tablet by mouth daily. 30 tablet 0 09/17/2013 01/18/2016 amitriptyline (ELAVIL) 25 mg tablet Take 25 mg by mouth nightly. 10/21/2013 metFORMIN (GLUCOPHAGE) 500 mg tablet Take 500 mg by mouth daily. 01/18/2016 lisinopril (PRINIVIL;ZESTRIL) 10 mg tablet 10 MG = 1 Tablet(s), PO, Once daily 05/25/2009 01/18/2016 documented as of this encounter Progress Notes * Chantell Hollins RN - 09/17/2013 3:31 PM EDT Patient did well today. She has been discharged home today with VNA services. Pain well controlled with Dilaudid. She was evaluated by PT today, one assist/walker. Patient was discontinued from telemetry, normal sinus rhythm. BP soft this morning 80/52 patient asymptomatic. Improved after first ambulation, checked frequently 102/75, 134/72. * Padmini Lam RN - 09/17/2013 2:36 PM [...] at home and referrals for VNA [facility]ru [facility]. Will ask RS to update VNA potential d/c this wknd. * Lolly Lainez, PT - 09/17/2013 11:35 AM EDT Physical Therapy Visit 2-3 Patient Profile: Yesi Estrella is a 63 y.o femasle admitted on 09/14/2013 by Tawanda Anthony MD for scheduled Revision Right L4-S1 decompression; Right L4-5 diskectomy Staff Communication/Mobility Recommendations: Pt. to utilize FWW and S to ambulate with nursing staff 3x/day ~ 150 ft Social History: Patient lives with her [place] w/ her who is retired Stairs: [...] reported numbness RLE. When she starts out observed to have ER of RLE but pt corrected [...] pt home today. Pt reports that she feels a bit nervous about this. present in room and reassures that he will be with her 21/10.All PT goals have been met and pt looks safe [...] of therapeutic interventions/precautions to support the care of the patient. Plan: DC PT Equipment needs: FWW, 3 in 1 commode Discharge Recommendations: Patient would benefit from continued therapeutic interventions 2-3 times a week as provided in a home environment to progress toward functional goals. Physical Therapist recommends: Occupational Therapy consult Total treatment time: 40 mins Total timed treatment: 40 minutes functional activities form home managment LOLLY LAINEZ PT Pager: [phone] * Tawanda Diego MD - 09/17/2013 7:42 AM [...] and numbness in the right leg and foot.On exam, has some R EHL weakness similar [...] Having expected surgical site pain, some RLE pain if she sits in bed too long. Had [...] medicine feels she is ready for d/c. * Daniel Castro - 09/17/2013 1:39 AM EDT [...] patient's HR normalized to sinus rhythm in the 80s; SBP dropped further to 78, patient asymptomatic throughout; this likely due to the effect of the atenolol Did not give diltiazem; did bolus LR 500cc x 1 * Padmini Lam RN - 09/16/2013 1:32 PM EDT Met with pt his afternoon and she is currently reclined in bed receiving IVF. Pt explains she had adifficult night with pian last night. RN reports adjustments made to pain medications. Pt has received her FWW from [employer] and [facility] in her home town. He will secure. Pt feels she has improved pain management for now and is anticipating d/c tomorrow, home with VNA servuces. * Tea Mittal - 09/16/2013 11:54 AM EDT chChaplaincy Encounter Note Patient Name: Yesi Estrella : [id number] MR#: [id number] Admit Date: 09/14/2013 9:06 PM Hospital Day 2 days Narrative: Visited to introduce and assess acceptance of Reactor Technician services. Assessment: Reactor Technician services accepted. Intervention and Outcome: Follow-up: Will coordinate follow-up services with Reactor Technician staff. Time in Direct Care: 5 minutes. Tea Pink 09/16/2013 * Tawanda Diego MD - 09/16/2013 6:32 AM [...] and numbness in the right leg and foot.On exam, has some R EHL weakness similar [...] Can be d/c'ed home when cleared by PT and pain controlled. * Tawanda Diego MD - 09/15/2013 3:50 PM [...] the resident's findings and plan. Pt having some incisional pain this am, minimal pain radiating down her RLE but she did feel numbness in the right leg and foot. On exam, has some R EHL weakness similar to baseline and numbness on dorsum of R foot. She will cont to work with PT, home when cleared. 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 Pt is available to assist with needs at discharge and she an aunt who will also come and stay and assist as needed. We discussed additional assist oif VNA and pt and are agreeable. Pt and request FWW and also over toilet extension seat. They request securing from [employer] [facility] and would like delivered to inpt room. Pt aware she may not have coverage for DME. Will secure DME and notify VNA. A list of FARM CONTRACTOR BUYER???s which serve the geographic area which the patient resides. Patient requests referral to [facility]NA Referrals sent via [employer] by Electrocardiograph Repairer. Anticipate pt will d/c once pain controlled adequately. Tel call to [facility] in [place] per pt request. Provided script and demos as well as clinical to central intake for delivery of FWW and toilet seat. Pt aware she may not have coverage for elevated TS and still wants to secure. Will have DME delivered to [facility] if poss. * Tawanda Diego MD - 09/14/2013 9:36 PM [...] %] I/O last 3 completed shifts: In: 1999 [I.V.:1999] Out: 195 [Urine:145; Blood:50] I/O this [...] agree with the resident's findings and plan. * Kandace Chong RN - 09/14/2013 7:27 PM EDT 191 - report from RAFA Riley and care resumed. Monitor alarms set per pacu protocols. at bedside to visit and updated - supported. Has all pt's belongings with him. Pt alert and oriented. channing Nesbitt. Pt does state that right leg is slight numb and tingling - slight more than her normal. Pain mostly in lower back 5/10. Pt using service bar cashier dilaudid as ordered and lissa well. Pt states pain level much better than her normal pain level. Also states sore around breast area and along right hip - no redness noted, no breakdown noted. Pt was prone for procedure - insructed pt maybe due to positioning for surgery. gd sats on 3L supervisor boatbuilders wood - lungs clear. Vss. IVF infusing via left hand piv. Right hand piv saline locked. bilat venodynes on. Skin intact, afebrile. Back dressing cdi. No drains. BS taken - 142. Pt last took po metformin yesterday am. Pt also take HTN po meds in roldan - last taken yesterday before bed. Miller with marginal uop - clear yellow urine. Repositioned catheter and will monitor closely. Pt denies nausea. 1999 - pt sleeping and pain level improved with better use of service bar cashier button. Vss. uop improved after ivf given by previous RN. Dressing remains cdi. 2019 - turned pt back to flat - pt did well repositioning herself. gd uop. Vss. Pain controlled. Report called to [facility] salomon and pt readied for transfer to [facility] via bed. * Ketty Braxton - 09/14/2013 6:37 PM EDT Pt arrived from OR to PACU @ 1713. Alarms active and audible per PACU protocol. A/Ox4, VSS. C/o 10/10 pain in her back and R leg. IV dilaudid given, PO oxycodone and tylenol given, LOGISTICS PLANNER teaching with return demonstration showing understanding. Dressing CDI. No N/V. Repositioned on L side with pillowsupport for comfort. Skin reddened around sternum r/t postioning in OR but is blanching. 183-- Pain 4/10 and tolerable for pt. C/o numbness in R leg and states that she had numbness priorto surgery. documented in this encounter H&P Notes * Tawanda Diego MD - 09/14/2013 1:24 PM EDT Patient seen and examined. Agree with assessment by PCP. Pt cont to have severe RLE pain and LBP. On exam, has 4/5 strength R EHL and peroneals with numbness on lateral border and dorsum of R foot. +SLR on R. Will proceed with surgery as planned (right L4-S1 hemilaminectomy with diskectomies as indicated). Patient is a full-code. * Tawanda Diego MD - 09/14/2013 1:23 PM EDT Patient Name: Yesi Estrella Patient Age: 63 y.o. Birthdate: 1950 Admit date: 09/14/2013 Attending Physician: Tawanda Diego MD Please see H+P by PCP. documented in this encounter Procedure Notes * Provider, Scanning - 09/18/2013 9:19 AM EDTAssociated Order(s): SCAN DOC: IMPLANTABLE DEVICES * Provider, Scanning - 09/18/2013 9:19 AM EDTAssociated Order(s): SCAN DOC: MANAGER VALUATION documented in this encounter Miscellaneous Notes * Miscellaneous - Provider, Scanning - 09/18/2013 9:19 AM EDT * Miscellaneous - Provider, Scanning - 09/18/2013 9:19 AM EDT * Discharge Summary - Onel Rutherford MD - 09/17/2013 1:22 PM EDT Discharge Summary Patient Name: Yesi Estrella Patient Age: 63 y.o. Language: Montenegrin Race: White Ethnicity: Not nor Admit date: [...] Inpatient Provider Contact Information: Dr. Diego Spine: [phone] After hours and weekends, call [facility] Overlay Plastician, , and have Orthopedic resident paged. Discharge [...] no bending or twisting, no lifting more than10 pounds, and no pushing or pulling. These parameters were reinforced by physical therapy. Yesi Estrella was changed to oral pain medications and LOGISTICS PLANNER was discontinued on POD#1. The miller catheterwas removed on POD#1 and she was voiding without [...] Weight: Wt Readings from Last 1 Encounters: /18/14 68 kg (149 lb 14.6 oz) Height: Ht Readings from Last 1 Encounters: 06/18/14 165.1 cm (5' 5) HC: HC Readings from Last 1 Encounters: No data found for HC BMI: Body mass index is 24.95 kg/(m^2). Last value Range last 24 hrs Temperature Temp: 36.8 ??C (98.2 ??F) Temp: [36.4 ??C (97.5 ??F)-37.4 ??C (99.3 ??F)] Heart Rate Heart Rate: 72 Heart Rate: [70-137] Blood Pressure BP: 80/52 mmHg @zaoouyx48@ Respiratory Rate Resp: 18 Resp: [18] SpO2 SpO2: 94 % @kxqnyeat77@ Art BP BP (Arterial Line): -- Functional [...] Administered Date(s) Administered ??? Influenza Vaccine (Novel) [id number], Injectable 01/29/2009 ??? Influenza Vaccine, Whole 01/29/2009 [...] but minimize bending at the waist greater than 90 degrees, twisting around your waist, or lifting [...] constipation, so increase your intake of fluids and fiber while you are taking them. 3. You should also take an zjsn-vgp-kxsnwky stool softener, such as Colace or Senna, to facilitate a bowel movement. Drivin. You are not allowed to [...] medication, please contact the Spine Center Prescription Lineat [phone]. PRESCRIPTION RENEWAL REQUESTS CAN TAKE UP TO 3 DAYS TO FILL. YOU WILL BE REQUIRED TO CATHEAD WORKER YOUR NARCOTIC REFILL PRESCRIPTION IN PERSON AT [facility] OR IT CAN BE MAILED TO YOUR PHARMACY. Wound Care/Shower/Bath: 1. For the first 72 hours after surgery, shower with a clear plastic Tegaderm dressing covering your wound to keep it dry. 2. After 72 hours you may remove the plastic dressing. At this point you may allow water to run over the wound but do not scrub the surrounding skin. Gently pat dry with a clean, dry towel. 3. At this time you may replace the plastic dressing with clean, dry gauze held in place with tape.Any bandage over the wound should be dry [...] tubs, bath tubs, etc) for at least four weeks until the incision has completely healed. 6. [...] fallen off already. PLEASE CALL US AT [phone] TO SPEAK WITH A SPINE CENTER NURSE [...] Important Phone Numbers: Clinical issues, nurse questions: [phone] Medication renewals: [phone] Appointments for Rebecca Diego : [phone] Follow Up Appointments: 1. You will have follow-up appointments at [facility] as indicated in the ???Future Appointments and [...] clinic on 09/23/13 at 1:00 PM to discuss the changes and outpatient studies that were recommended by the Hospital Medicine team. Future Appointments Date Time Provider Department Center 10/13/2013 1:00 PM Tawanda Diego MD [facility] Spine [facility] Future Appointments and Orders Future Appointments: Provider: Department: Dept Phone: Center: 10/13/2013 1:00 PM Tawanda Diego MD Sp[facility] [phone] [facility] Future Orders Please Complete By Expires Referral to Home Health [[id number] CPT(R)] Process Instructions: Scheduling Instructions: Comments: DOCUMENTATION FOR VNA SERVICES (INCLUDING THOSE PATIENTS WITH MEDICARE COVERAGE REQUIRING HOME VNA SERVICES AND/OR HOSPICE SERVICES) PATIENT'S LOCATION: Yesi Estrella [address] [place] [phone] (home) Music Artist's Name: self and In discussion with the attending physician, it is certified that this patient is under their care and that they, or a Nurse Practitioner,Clinical Nurse specialist or Physician Cigarette Making Machine Operator who is working directly with [...] for services as follows: HOME CARE ORDERS: RN ORDERS:Assess wound or incision, vital signs, cardiopulmonary status, nutrition, hydration, elimination, meds effectiveness and management. PT ORDERS: Continue rehab for endurance, gait stability and strength with mobility and transfers. Home safety evaluation. OT: assess and continue rehab for managing ADL's.- evaluate need for FARM CONTRACTOR BUYER HOME HEALTH CARE AGENC[facility] PHONE: [phone] FAX: [phone] Start of care: Day after discharge FOR MEDICARE ONLY: (please delete this section if not Medicare) In discussion with the attending physician, it is certified that the clinical findings support thatthis patient is homebound because absences from home require considerable and taxing effort due to:recent surgery to spine and need for walking aide to maintain safe ambulation Please note that any additional orders needs or changes will need to be obtained from this patient's PCP: MALINDA MCMILLAN MD [address] / [facility] [id number] All A agencies which cover the area of patient's residence have been reviewed, either verbally chino writing, and patient/family have chosen the home health care agency noted Questions: Responses: [facility] What services are requested Registered Nurse Physical Therapy Start date Responsible MD post discharge contact info PCP Echocardiogram South/External [[id number] Custom] 09/17/13 09/16/14 Process Instructions: Scheduling Instructions: Comments: Questions: Responses: Does patient require sedation? GA rationale: Is a Bubble Study requested? No Does the patient have Congenital Heart Disease? Should this service/procedure be billed to the research sponsor? Which location will this be performed? External Elevated toilet seat [EQ50 Custom] Process Instructions: Scheduling Instructions: Comments: Over toilet seat with arms. Questions: Responses: Vendor Name/Contact information: [employer] Walker rolling [EQ134 Custom] Process Instructions: Scheduling Instructions: Comments: Front wheel walker. 68 kg, 165 cm. Questions: Responses: Vendor Name/Contact information: [employer] [facility] Primary Care Provider: MALINDA MCMILLAN MD [phone] * Consult Note - Bhavna Harris MD - [...] RVR. I have reviewed the available records, interviewed,and examined the patient. Active Problem List: # [...] similar symptoms before. She denied any chest pain during the episode but did endorse some back pain. At present she is completely asymptomatic despite being a bit hypotensive. No dizziness, orthopnea, PND [...] Illicits: Denies Living Situation: Lives with near amboy border Vitals: Last value Range last 24 [...] course c/b transient episode of new-onset AF withRVR last night with conversion to NSR following resumption of her home dose of atenolol 50 mg. Medicine is being consulted for recommendations with regard to further work-up and management in the setting of relative hypotension after restarting her atenolol. In light of her HOTN, would discharge her home on 25 mg atenolol (half her home dose) and have her f/u with her PCP for further adjustment. Would also recommend outpt TTE to evaluate for valve disease or structural abnormalities. Although he r CHADS2 score is 2 and her [id number] score is 3, this was a transient and isolated episode in thepost-operative setting and would therefore recommend starting only [...] required. OZZY ADKINS MD 09/17/2013 Consult pager #[phone] Personal pager #[phone] Attending Staff Documentation I have examined the patient myself and reviewed all labs and studies personally. Please see Dr. Ozzy Adkins's documentation for details of the patient history of presentation and data. I have discussed, reviewed and agree with the documented history with ROS, physical findings, labs/studies, assessment and plan of care. Bhavna Harris MD * Plan of Care - Pito Liu RN - 09/17/2013 6:23 AM EDT Problem: General Plan of Care Goal: Plan of Care Review Walked in sanchez x1, back to bed developed rapid heart rate. MD notified, Metoprolol, EKG ordered andcarried out. EKG showed AFIB with RVR, Tele place, convert to normal SR before intervention. BP remain < 100 after bolus of LR. * Plan of Care - Pito Liu RN - 09/16/2013 5:15 AM EDT Problem: General Plan of Care Goal: Plan of Care Review Suffering of R leg pain 01/07, ambulated slowly with walker, unwilling to OOB to bathroom this am due to R leg pain, voided using bed hernandez. * Consult Note - Veronica Jolley RN - 09/15/2013 12:32 PM EDT Certified Wound Care Nurse Situation: Post-op visit to assess anterior skin for pressure related skin breakdown following prone positioning in the operating room. Background: Yesi Estrella [...] needed. Discussed findings with: RN: Charo Mallory * Initial Assessments - Lolly Lainez, PT - [...] LUMBAR performed by Tawanda Diego MD at [facility] MAIN OR ??? Redo excis lumbar disc 09/14/2013 LAMINOTOMY W\DECOMPRESSION, ONE LVL, LUMBAR ,RE-EXPL (INCLDNG PART. FACETECTOMY, FORAMINOTOMY &\OR DISCECTOMY) performed by Tawanda Diego MD at [facility] MA[facility] OR Social History: Patient lives with her in [place], [place] w/ her who is retired Stairs: [...] Anticipat steady progress toward safe DC to homein1-2 days w/ and will discuss value of [...] of therapeutic interventions/precautions to support the care of the patient. Plan: Patient to be seen daily for physical therapy to include Bed mobility, Transfers, Assistive device/technique, Exercise, Positioning, Safety , Precautions/protocol, Gait , Role of therapy, Balance andDischarge planning Patient agrees to the plan as stated. Equipment needs: FWW, 3 in 1 commode Discharge Recommendations: Patient would benefit from continued therapeutic interventions 2-3 times a week as provided in a home environment to progress toward functional goals. Physical Therapist recommends: Occupational Therapy consult Total treatment time: 36 minutes eval Total timed treatment: 0 minutes LOLLY LAINEZ PT Pager: [phone] * Plan of Care - Pito Liu RN - 09/15/2013 4:26 AM EDT Problem: General Plan of Care Goal: Plan of Care Review Pain controlled with LOGISTICS PLANNER dilaudid, refused PO medications due to nausea, Given zofran x 2 with goodrelief. * Op Note - Tawanda Diego MD - 09/14/2013 4:59 PM EDT [facility] Operative Note Patient Name: Yesi Estrella : [id number] MR#: [id number] Case Date: 09/14/2013 Surgeon: Surgeon(s) and Role: [...] the sling. The back was prepped with Hibiclens and DuraPrep and draped in the usual sterile [...] and S1 on the right side. A [place] was placed caudal to the right L5 [...] stable condition. There were no obvious complications. * OR Attestation - Tawanda Diego MD - 09/14/2013 4:59 PM EDT Attestation: Case Date: 09/14/2013 I was present and I participated during the entire procedure (does not need to include opening and closing). TAWANDA DIEGO MD 09/14/2013 * Brief Op Note - Tawanda Diego MD - 09/14/2013 4:56 PM EDT Brief Operative Note Patient Name: Yesi Estrella : [id number] MR#: [id number] Case Date: 09/14/2013 Surgeon: Surgeon(s) and Role: * Tawanda Diego MD - Primary * Ryan Hernandez MD - Resident Preoperative diagnosis: Spinal stenosis, right L4-5 disk herniation Postoperative diagnosis: Spinal stenosis, right L4-5 disk herniation Procedure(s): Revision right L4-S1 decompression, right L4-5 diskectomy Anesthesia: General Findings: There was severe lateral recess stenosis on the right at L4-5 due to a disk herniation and facet hypertrophy. There was moderate-severe right L5-S1 foraminal [...] and Specimen details pertinent to this patient.) * Miscellaneous - Provider, Scanning - 09/14/2013 2:31 PM EDT documented in this encounter Plan of Treatment Not on file documented as of this encounter Procedures Procedure Name Priority Date/Time Associated Diagnosis Comments IMPLANTABLE DEVICES SCAN 09/18/2013 9:19 AM EDT MANAGER VALUATION SCAN 09/18/2013 9:19 AM EDT HEMOGRAM STAT 09/17/2013 9:35 AM EDT DIFFERENTIAL, AUTOMATED STAT 09/17/2013 9:35 AM EDT CBC (WITH DIFF) STAT 09/17/2013 9:35 AM EDT MAGNESIUM STAT 09/17/2013 9:35 AM EDT BASIC METABOLIC PANEL STAT 09/17/2013 9:35 AM EDT POCT GLUCOSE Routine 09/17/2013 7:36 AM EDT EKG 12-LEAD STAT 09/16/2013 11:51 PM EDT Chronic low back pain HEMOGRAM Routine 09/15/2013 6:01 AM EDT DIFFERENTIAL, AUTOMATED Routine 09/15/2013 6:01 AM EDT CBC (WITH DIFF) Routine 09/15/2013 6:01 AM EDT BASIC METABOLIC PANEL Routine 09/15/2013 6:01 AM EDT POCT GLUCOSE Routine 09/14/2013 7:26 PM EDT LAMINOT W DCOMPR 1LVL LUMB, REXPL INC PART FACECT/ FORAMOT +OR DISCECT Routine 09/14/2013 4:55 PM EDT Right lumbar radiculopathy XR LUMBAR SPINE 1 VIEW Routine 09/14/2013 2:47 PM EDT LAMINOTOMY W\DECOMPRESSION, ONE LVL, LUMBAR ,RE-EXPL (INCLDNG PART. FACETECTOMY, FORAMINOTOMY &\OR DISCECTOMY) (WRVU 18.76) 09/14/2013 1:33 PM EDT Right lumbar radiculopathy MODIFIER S1 09/14/2013 1:33 PM EDT Right lumbar radiculopathy MODIFIER L5 09/14/2013 1:33 PM EDT Right lumbar radiculopathy MODIFIER L4 09/14/2013 1:33 PM EDT Right lumbar radiculopathy EA ADD'L VERTEBRAL SEGMENT CERVICAL, THORACIC, LUMBAR (WRVU 3.47) 09/14/2013 1:33 PM EDT Right lumbar radiculopathy POCT GLUCOSE Routine 09/14/2013 12:14 PM EDT ADD'L INTERSPACES CX., THORACIC, LUMBAR Routine 09/14/2013 11:51 AM EDT Right lumbar radiculopathy documented in this encounter Results * SCAN DOC: IMPLANTABLE DEVICES (09/18/2013 9:19 AM EDT) Narrative 09/18/2013 9:19 AM EDT Procedure Note Provider, Scanning - 09/18/2013 9:19 AM EDT Scanning Provider MEDIA MGR SCAN EXT O RDR/RSLT * SCAN DOC: MANAGER VALUATION (09/18/2013 9:19 AM EDT) Anatomical Region Laterality Modality Other Narrative 09/18/2013 9:35 AM EDT Procedure Note Provider, Scanning - 09/18/2013 9:19 AM EDT Scanning Provider MEDIA MGR SCAN EXT O RDR/RSLT * Differential, Automated (09/17/2013 9:35 AM EDT) Neutrophil % 67.1 34.0 - 71.0 % CERNER MILLENNIUM Neutrophil Absolute 6.13 1.50 - 6.30 x10(3)/mcL CERNER MILLENNIUM Lymph % 25.0 19.0 - 53.0 % CERNER MILLENNIUM Lymphocytes Abs 2.3 1.0 - 3.6 x10(3)/mcL CERNER MILLENNIUM Monocyte % 6.1 4.0 - 13.0 % CERNER MILLENNIUM Monocyte Abs 0.6 0.2 - 1.0 x10(3)/mcL CERNER MILLENNIUM Eos % 1.5 0.0 - 7.0 % CERNER MILLENNIUM Eosinophils Abs 0.1 0.0 - 0.5 x10(3)/mcL CERNER MILLENNIUM Basophil % 0.2 0.0 - 2.0 % CERNER MILLENNIUM Baso Absolute 0.0 0.0 - 0.2 x10(3)/mcL CERNER MILLENNIUM Immature Gran % 0.10 0.00 - 0.66 % CERNER MILLENNIUM Comment: Immature granulocytes(IG's)percentage and absolute count will include metamyelocytes, myelocytes, and promyelocytes. Blood smears from CBCs yielding IG's will be scanned manually for concordance. If this scan disagrees with the automated IG or if promyelocytes are noted, a manual differential will be performed. Immature Gran Absolute 0.01 0.00 - 0.05 x10(3)/mcL CERNER MILLENNIUM Blood specimen (specimen) 09/17/2013 9:35 AM EDT 09/17/2013 9:46 AM EDT Narrative Resulting Agency Comment Spec In Lab Tawanda Diego MD HEMATOLOGY ORDERABLE S Performing Organization Address City/[facility]/ZIP Co de Phone Number CERLUDIVINA SAMSONENNIUM * (ABNORMAL) Hemogram (09/17/2013 9:35 AM EDT) White Blood Cell 9.2 4.0 - 10.0 x10(3)/mc L CERNER MILLENNIUM Red Blood Cell 3.23(L) 3.93 - 5.22 x10(6)/mc L CERNER MILLENNIUM Hemoglobin 10.3(L) 11.2 - 15.7 gm/dL CERNER MILLENNIUM Hematocrit 30.7(L) 34.0 - 45.0 % CERNER MILLENNIUM Mean Cell Volume 95.0(H) 79.0 - 94.0 fL CERNER MILLENNIUM Mean Cell Hemoglobin 31.9 26.6 - 32.2 pg CERNER MILLENNIUM Mean Cell Hemoglobin Concentration 33.6 32.0 - 36.5 gm/dL CERNER MILLENNIUM Platelet 168 145 - 370 x10(3)/mc L CERNER MILLENNIUM RDW Standard Deviation 43.3 35.0 - 46.0 fL CERNER MILLENNIUM RDW coefficient of variation 12.6 10.9 - 14.4 % CERNER MILLENNIUM Mean Platelet Volume 11.0 9.0 - 12.0 fL CERNER MILLENNIUM Blood specimen (specimen) 09/17/2013 9:35 AM EDT 09/17/2013 9:46 AM EDT Narrative Resulting Agency Comment Spec In Lab Tawanda Diego MD HEMATOLOGY ORDERABLE S Performing Organization Address City/[facility]/ZIP Co de Phone Number OSWALD BERTRANDIUM * Magnesium (09/17/2013 9:35 AM EDT) Magnesium 0.69 0.69 - 1.07 mmol/L CERNER MILLENNIUM Blood specimen (specimen) 09/17/2013 9:35 AM EDT 09/17/2013 9:46 AM EDT Narrative Resulting Agency Comment Spec In Lab Tawanda Diego MD CHEMISTRY ORDERABLES CERNER MILLENNIUM * (ABNORMAL) Basic Metabolic Panel (non-fasting) (09/17/2013 9:35 AM EDT) Glucose 209(H) 60 - 199 mg/dL CERNER MILLENNIUM Comment:Diabetes: >=200 mg/d L plus symptoms Blood Urea Nitrogen 11 8 - 18 mg/dL CERNER MILLENNIUM Creatinine 0.79 0.70 - 1.20 mg/dL CERNER MILLENNIUM Comment: Please note that the pediatric reference intervals supplied above were not validated [place] [facility] Results from pediatric patients should be interpreted in conjunction to the patient's age, height and muscle mass. Sodium 135 135 - 145 mmol/L CERNER MILLENNIUM Potassium 3.9 3.5 - 5.0 mmol/L CERNER MILLENNIUM Comment: Please note: ??Patients with WBC >100,000 may have falsely elevated Potassium levels. ??For accurate Potassium quantification in these patients send serum separator tube (gold top) for subsequent determinations. ??Contact the Clinical Chemistry Laboratory if there are any questions. Chloride 100 98 - 107 mmol/L CERNER MILLENNIUM Carbon Dioxide 27 22 - 31 mmol/L CERNER MILLENNIUM Anion Gap 8 5 - 15 mmol/L CERNER MILLENNIUM Calcium 8.5 8.5 - 10.5 mg/dL CERNER MILLENNIUM Est Glomerular Filtration Rate >60 >=60 CERNER MILLENNIUM Comment: This estimated GFR (eGFR) value was calculated using the MDRD equation which has been validated on patients between the ages of 18 and 70. The MDRD should not be used to assess kidney function in patients < 18 years of age or in patients with extremes of body mass, or in patients with acute kidney failure. This value should be multiplied by 1.2 for patients. For further information please copy and paste the following links into your internet browser. [email or web address] [email or web address] Blood specimen (specimen) 09/17/2013 9:35 AM EDT 09/17/2013 9:46 AM EDT Narrative Resulting Agency Comment Spec In Lab Tawanda Diego MD CHEMISTRY ORDERABLES Performing Organization Address [facility] Phone Number [facility] * POCT Glucose (09/17/2013 7:36 AM EDT) Glucose, POC 126 60 - 199 mg/dL [facility] Comment: Supplemental ranges: <110 mg/dL before meals <200 mg/dL all other times of the day Blood specimen (specimen) 09/17/2013 7:36 AM EDT 09/17/2013 7:36 AM EDT Tawanda Diego MD POINT OF CARE TEST O RDERABLES Performing Organization Address [facility] Phone Number [facility] * EKG 12 Lead (09/16/2013 11:51 PM EDT) Ventricular rate 160 BPM MUSE SYSTEM Atrial Rate 163 BPM MUSE SYSTEM QRS Duration 122 ms MUSE SYSTEM Q-T Interval 250 ms MUSE SYSTEM QTC Calculated (Bezet) 407 ms MUSE SYSTEM Calculated R [place] 55 degrees MUSE SYSTEM Calculated T [place] -41 degrees MUSE SYSTEM INTERPRETATION Atrial fibrillation with rapid ventricular response Right bundle branch block T wave abnormality, consider inferior ischemia or digitalis effect Abnormal ECG When compared with ECG of 11-AUG-2013 15:36, Atrial fibrillation has replaced Sinus rhythm Vent. rate has increased BY 108 BPM Nonspecific T wave abnormality now evident in Lateral leads Confirmed by MD THANIA, DESTIN ([id number]) on 09/17/2013 7:05:44 PM MUSE SYSTEM 09/16/2013 11:5 1 PM EDT 09/17/2013 7:05 PM EDT Tawanda Diego MD ECG ORDERABLES Performing Organization Address [facility] Phone Number MUSE SYSTEM * (ABNORMAL) Differential, Automated (09/15/2013 6:01 AM EDT) Neutrophil % 79.3(H) 34.0 - 71.0 % CERNER MILLENNIUM Neutrophil Absolute 12.16(H) 1.50 - 6.30 x10(3)/mc L CERNER MILLENNIUM Lymph % 12.7(L) 19.0 - 53.0 % CERNER MILLENNIUM Lymphocytes Abs 2.0 1.0 - 3.6 x10(3)/mc L CERNER MILLENNIUM Monocyte % 7.6 4.0 - 13.0 % CERNER MILLENNIUM Monocyte Abs 1.2(H) 0.2 - 1.0 x10(3)/mc L CERNER MILLENNIUM Eos % 0.0 0.0 - 7.0 % CERNER MILLENNIUM Eosinophils Abs 0.0 0.0 - 0.5 x10(3)/mc L CERNER MILLENNIUM Basophil % 0.1 0.0 - 2.0 % CERNER MILLENNIUM Baso Absolute 0.0 0.0 - 0.2 x10(3)/mc L CERNER MILLENNIUM Immature Gran % 0.30 0.00 - 0.66 % CERNER MILLENNIUM Comment: Immature granulocytes(IG's)percentage and absolute count will include metamyelocytes, myelocytes, and promyelocytes. Blood smears from CBCs yielding IG's will be scanned manually for concordance. If this scan disagrees with the automated IG or if promyelocytes are noted, a manual differential will be performed. Immature Gran Absolute 0.04 0.00 - 0.05 x10(3)/mc L CERNER MILLENNIUM Blood specimen (specimen) 09/15/2013 6:01 AM EDT 09/15/2013 6:14 AM EDT Narrative Resulting Agency Comment Spec In Lab Tawanda Diego MD HEMATOLOGY ORDERABLE S OSWALD BERTRANDIUM * (ABNORMAL) Hemogram (09/15/2013 6:01 AM EDT) White Blood Cell 15.3(H) 4.0 - 10.0 x10(3)/mc L CERNER MILLENNIUM Red Blood Cell 3.77(L) 3.93 - 5.22 x10(6)/mc L CERNER MILLENNIUM Hemoglobin 12.0 11.2 - 15.7 gm/dL CERNER MILLENNIUM Hematocrit 35.2 34.0 - 45.0 % CERNER MILLENNIUM Mean Cell Volume 93.4 79.0 - 94.0 fL CERNER MILLENNIUM Mean Cell Hemoglobin 31.8 26.6 - 32.2 pg CERNER MILLENNIUM Mean Cell Hemoglobin Concentration 34.1 32.0 - 36.5 gm/dL CERNER MILLENNIUM Platelet 206 145 - 370 x10(3)/mc L CERNER MILLENNIUM RDW Standard Deviation 40.8 35.0 - 46.0 fL CERNER MILLENNIUM RDW coefficient of variation 12.0 10.9 - 14.4 % CERNER MILLENNIUM Mean Platelet Volume 10.7 9.0 - 12.0 fL CERNER MILLENNIUM Blood specimen (specimen) 09/15/2013 6:01 AM EDT 09/15/2013 6:14 AM EDT Narrative Resulting Agency Comment Spec In Lab Tawanda Diego MD HEMATOLOGY ORDERABLE S [facility] * (ABNORMAL) Basic Metabolic Panel (non-fasting) (09/15/2013 6:01 AM EDT) [facility] Glucose 120 60 - 199 mg/dL CERNER MILLENNIUM Comment:Diabetes: >=200 mg/d L plus symptoms Blood Urea Nitrogen 15 8 - 18 mg/dL CERNER MILLENNIUM Creatinine 0.77 0.70 - 1.20 mg/dL CERNER MILLENNIUM Comment: Please note that the pediatric reference intervals supplied above were not [place] [facility] Results from pediatric patients should be interpreted in conjunction to the patient's age, height and muscle mass. Sodium 138 135 - 145 mmol/L CERNER MILLENNIUM Potassium 4.1 3.5 - 5.0 mmol/L CERNER MILLENNIUM Comment: Please note: ??Patients with WBC >100,000 may have falsely elevated Potassium levels. ??For accurate Potassium quantification in these patients send serum separator tube (gold top) for subsequent determinations. ??Contact the Clinical Chemistry Laboratory if there are any questions. Chloride 103 98 - 107 mmol/L CERNER MILLENNIUM Carbon Dioxide 28 22 - 31 mmol/L CERNER MILLENNIUM Anion Gap 7 5 - 15 mmol/L CERNER MILLENNIUM Calcium 8.3(L) 8.5 - 10.5 mg/dL CERNER MILLENNIUM Est Glomerular Filtration Rate >60 >=60 CERNER MILLENNIUM Comment: This estimated GFR (eGFR) value was calculated using the MDRD equation which has been validated on patients between the ages of 18 and 70. The MDRD should not be used to assess kidney function in patients < 18 years of age or in patients with extremes of body mass, or in patients with acute kidney failure. This value should be multiplied by 1.2 for patients. For further information please copy and paste the following links into your internet browser. [email or web address] [email or web address] Blood specimen (specimen) 09/15/2013 6:01 AM EDT 09/15/2013 6:14 AM EDT Narrative Resulting Agency Comment Spec In Lab Tawanda Diego MD CHEMISTRY ORDERABLES Performing Organization Address [facility] Co de Phone Number OSWALD JACKMAN * POCT Glucose (09/14/2013 7:26 PM EDT) [facility] Signature Glucose, POC 142 60 - 199 mg/dL CERNER MILLENNIUM Comment: Supplemental ranges: <110 mg/dL before meals <200 mg/dL all other times of the day Blood specimen (specimen) 09/14/2013 7:26 PM EDT 09/14/2013 7:26 PM EDT Tawanda Diego MD POINT OF CARE TEST O RDERABLES Performing Organization Address [facility] Co de Phone Number OSWALD JACKMAN * XR lumbar spine 1 view (09/14/2013 2:47 PM EDT) Anatomical Region Laterality Modality L-spine N/A Radiographic Montse ging 09/14/2013 2:47 PM EDT Narrative 09/14/2013 4:19 [...] interspace. Tawanda Diego MD IMG DX ORDERABLES * POCT Glucose (09/14/2013 12:14 PM EDT) Glucose, POC 91 60 - 199 mg/dL [facility] Comment: Supplemental ranges: <110 mg/dL before meals <200 mg/dL all other times of the day Blood specimen (specimen) 09/14/2013 12:14 PM EDT 09/14/2013 12:14 PM EDT Tawanda Diego MD POINT OF CARE TEST O RDERABLES Performing Organization Address City/State/[facility] Co de Phone Number [facility] documented in this encounter Visit Diagnoses Diagnosis S/P Revision Right L4-S1 decompression, Right L4-5 diskectomy - 09/14/13 (Evonne)- Primary Personal history of surgery to other organs Right lumbar radiculopathy Thoracic or lumbosacral neuritis or radiculitis, unspecified Chronic low back pain Lumbago Atrial fibrillation with RVR Atrial fibrillation Right lumbar radiculopathy Thoracic or lumbosacral neuritis or radiculitis, unspecified documented in this encounter Administered Medications Inactive Administered Medications - up to 3 most recent administrations Medication Order MAR Action Action Date Dose Rate Site BUpivacaine (PF) (MARCAINE) 0.25 % (2.5 mg/mL) injection ONCE PRN, Starting on Fri09/14/13 at 1702, Until Fri09/14/13 at 1721, Intra-Operative (Intra-Procedure), Routine Given 09/14/2013 5:02 PM EDT 50 mg 19- Surgical Site BUpivacaine-EPINEPHri ne 0.25 %-1:200,000 injection ONCE PRN, Starting on Fri09/14/13 at 1455, Until 6/17/14 at 1919, Intra-Operative (Intra-Procedure), Routine Given 09/14/2013 2:55 PM EDT 20 mLs 19- Surgical Site gelatin adsorbable 100 (GELFOAM) sponge ONCE PRN, Starting on Fri09/14/13 at 1456, Until Fri09/14/13 at 1721, Intra-Operative (Intra-Procedure), Routine Given 09/14/2013 2:56 PM EDT 1 each 19- Surgical Site thrombin (Bovine) (THROMBINAR) kit ONCE PRN, Starting on Fri09/14/13 at 1456, Until Fri09/14/13 at 1721, Intra-Operative (Intra-Procedure) Given 09/14/2013 2:56 PM EDT 20,000 Units 19- Surgical Site documented in this encounter Active and Recently Administered Medications Times are shown in EDT. Scheduled Medication Order 09/15/2013 09/16/2013 09/17/2013 acetaminophen (TYLENOL) tablet 1,000 mg 1,000 mg, Oral, EVERY 8 HOURS SCHEDULED, First dose on Fri09/14/13 at 1745, Until Discontinued, Maximum dose of acetaminophen is 4000 mg from all sources in 24 hours., Recovery (Recovery-Hospital Unit), Routine 0200 (Not Given - Provider: Pito Liu RN - Reason: Patient/family refused)0937 (Given - Provider: Charo Mallory RN)1707 (Given - Provider: Charo Mallory RN) 0305 (Given - Provider: Xochitl Cuevas RN)1028 (Given - Provider: Charo Mallory RN)1725 (Given - Provider: Charo Mallory RN) 0200 (Given - Provider: Pito Liu RN)1019 (Given - Provider: Chantell Hollins RN) amitriptyline (ELAVIL) tablet 25 mg (CANCELED) 25 mg, Oral, NIGHTLY, First dose on Fri09/14/13 at 2315, Until Discontinued, Recovery (Recovery-Hospital Unit), Routine 2106 (Given - Provider: Pito Liu RN) 2053 (Given - Provider: Pito Liu RN) atenolol (TENORMIN) tablet 50 mg (CANCELED) 50 mg, Oral, DAILY, First dose (after last modification) on Fri09/17/13 at 0000, Until Discontinued, Recovery (Recovery-Hospital Unit), STAT 2349 (Given - Provider: Pito Liu RN) ceFAZolin (ANCEF) 1g in dextrose 5% 50mL (COMPLETED) 1,000 mg (1 g), Intravenous, EVERY 8 HOURS, 3 doses, First dose on Fri09/14/13 at 1745, Last dose on Fri09/15/13 at 0945, Administer over 30 Minutes, For 3 doses postoperatively. Adjust to 8 hours from intraoperative dose., Recovery (Recovery-Hospital Unit), Indication for (Active or Suspected): Prophylaxis 0118 (New Bag - Provider: Pito Liu RN)0853 (New Bag - Provider: Charo Mallory RN) esomeprazole (NEXIUM) capsule 40 mg (CANCELED) 40 mg, Oral, DAILY, First dose on Fri09/15/13 at 0900, Until Discontinued, Recovery (Recovery-Hospital Unit), Routine 0812 (Given - Provider: Charo Mallory RN) 0832 (Given - Provider: Charo Mallory RN) 0850 (Given - Provider: Chantell Hollins RN) HYDROmorphone (DILAUDID) injection 0.4 mg (COMPLETED) 0.4 mg, Intravenous, ONCE, 1 dose, On Fri09/15/13 at 1915, Routine 1939 (Given - Provider: Pito Liu RN) ketorolac (TORADOL) injection 15 mg () 15 mg, Intravenous, EVERY 6 HOURS SCHEDULED, 2 doses, First dose on Fri09/14/13 at 1745, Last dose on Fri09/15/13 at 0000, Recovery (Recovery-Hospital Unit), Routine 0118 (Given - Provider: Pito Liu RN) lactated ringers 500 mL IV bolus (COMPLETED) Intravenous, ONCE, 1 dose, On Fri09/17/13 at 0245 0227 (Given - Provider: Pito Liu RN) metFORMIN (GLUCOPHAGE) tablet 500 mg (CANCELED) 500 mg, Oral, DAILY, First dose on Fri09/15/13 at 0900, Until Discontinued, Recovery (Recovery-Hospital Unit), Routine 0812 (Given - Provider: Charo Mallory RN) 0832 (Given - Provider: Charo Mallory RN) 0849 (Given - Provider: Chantell Hollins, RAFA) multivitamin Ljry-Ug-XP-Min (THERAPEUTIC-M) 27-0.4 mg tablet 1 tablet (CANCELED) 1 tablet, Oral, DAILY, First dose on Fri09/15/13 at 0900, Until Discontinued, Recovery (Recovery-Hospital Unit) 0812 (Given - Provider: Charo Mallory RN) 08 (Given - Provider: Charo Mallory RN) 0849 (Given - Provider: Chantell Hollins, RAFA) oxyCODONE (oxyCONTIN) CR tablet 10 mg 10 mg, Oral, EVERY 12 HOURS SCHEDULED (2 times per day), First dose on Fri09/16/13 at 1230, Until Discontinued 1159 (Given - Provider: Charo Mallory RN)2052 (Given - Provider: Pito Liu RN) 0855 (Given - Provider: Chantell Hollins RN) polyethylene glycol (MIRALAX) packet 17 g 17 g, Oral, 2 TIMES DAILY, First dose on Fri09/14/13 at 2315, Until Discontinued, Administer if needed per patient's routine or if no bowel movement within 48 hours, Recovery (Recovery-Hospital Unit), Routine 810 (Given - Provider: Charo Mallory RN)2106 (Given - Provider: Pito Liu RN) 832 (Given - Provider: Charo Mallory RN)2052 (Given - Provider: Pito Liu RN) 0849 (Given - Provider: Chantell Hollins, RAFA) senna-docusate (PERICOLACE) 8.6-50 mg per tablet 1-4 tablet 1-4 tablet, Oral, 2 TIMES DAILY, First dose on Fri09/14/13 at 2315, Until Discontinued, Start with 1 tablet or liquid equivalent orally twice daily and titrate up to achieve: 1. One bowel movement at least every 48 hours, AND 2. Without straining, Recovery (Recovery-Hospital Unit), Routine 08 (Given - Provider: Charo Mallory RN)2106 (Given - Provider: Pito Liu RN) 0833 (Given - Provider: Charo Mallory RN)2053 (Given - Provider: Pito Liu RN) 0854 (Given - Provider: Chantell Hollins, RAFA) sodium chloride 0.9 % flush 5 mL (CANCELED) 5 mL, Intravenous, 2 TIMES DAILY, First dose on Fri09/14/13 at 2315, Until Discontinued, Recovery (Recovery-Hospital Unit), Routine 0118 (Given - Provider: Pito Liu RN)0816 (Given - Provider: Charo Mallory, RAFA)2146 (Given - Provider: Pito Liu RN) 0900 (Not Given - Provider: Charo Mallory RN - Reason: See comment - Comment: iv infusing)2105 (Given - Provider: Pito Liu RN) 0850 (Given - Provider: Chantell Hollins, RAFA) Continuous Medication Order 09/15/2013 09/16/2013 09/17/2013 lactated ringers infusion 1,000 mL (CANCELED) 1,000 mL, at 100 mL/hr, Intravenous, CONTINUOUS, Starting on Fri09/14/13 at 1745, Until Fri09/17/13 at 1708, Recovery (Recovery-Hospital Unit) 0400 (New Bag - Provider: Pito Liu RN)1000 (Paused - Provider: Charo Mallory, RAFA)2147 (New Bag - Provider: Pito iLu RN) 0657 (New Bag - Provider: Charo Mallory RN) 0602 (New Bag - Provider: Pito Liu RN) PRN Medication Order 09/15/2013 09/16/2013 09/17/2013 HYDROmorphone (DILAUDID) tablet 2-6 mg (CANCELED) 2-6 mg, Oral, EVERY 4 HOURS PRN, Starting on Fri09/15/13 at 1426, Until Fri09/16/13 at 0333, Pain, Routine 1439 (Given - Provider: Charo Mallory, RAFA)1751 (Given - Provider: Charo Mallory, RAFA)2342 (Given - Provider: Pito Liu RN) HYDROmorphone (DILAUDID) tablet 2-6 mg 2-6 mg, Oral, EVERY 3 HOURS PRN, Starting on Ghislaine 09/16/13 at 0345, Until Fri09/17/13 at 1708, Pain, Routine 0350 (Given - Provider: Pito Liu RN)0640 (Given - Provider: Pito Liu RN)1028 (Given - Provider: Charo Mallory, RAFA)1044 (MAY Hold - Provider: Admin Adt - Reason: Transfer to a Procedural area)1047 (MAR Unhold - Provider: Admin Adt)1602 (Given - Provider: Charo Mallory, RAFA)2349 (Given - Provider: Pito Liu RN) 0305 (Given - Provider: Pito Liu RN)0600 (Given - Provider: Pito Liu RN)1309 (Given - Provider: Chantell Hollins, RAFA)1502 (Given - Provider: Chantell Hollins RN - Comment: pt request before discharge) ondansetron (ZOFRAN) injection 4 mg (CANCELED) 4 mg, Intravenous, EVERY 8 HOURS PRN, Starting on 09/14/13 at 2255, Until Fri09/17/13 at 1708, Nausea, Recovery (Recovery-Hospital Unit) 0822 (Given - Provider: Charo Mallory RN)1732 (Given - Provider: Charo Mallory, RAFA) oxyCODONE (ROXICODONE) immediate release tablet 10 mg (CANCELED)(Linked Group 1) 10 mg, Oral, EVERY 4 HOURS PRN, Starting on Fri09/14/13 at 1720, Until Fri09/15/13 at 1425, Pain, moderate pain, For Moderate pain. Do not exceed 15 mg in 4 hours. If pain not relieved, call provider., Recovery (Recovery-Hospital Unit), Routine 1158 (Given - Provider: Charo Mallory RN) Linked Groups Order Group 1: oxyCODONE (ROXICODONE) immediate release tablet 5 mg (CANCELED) 5 mg, Oral, EVERY 4 HOURS PRN, Starting on Fri09/14/13 at 1720, Until Fri09/15/13 at 1425, Pain, mild pain, For Mild pain. Do not exceed 15 mg in 4 hours. If pain not relieved, call provider, Recovery (Recovery-Hospital Unit), Routine Or oxyCODONE (ROXICODONE) immediate release tablet 10 mg (CANCELED)Jump to med 10 mg, Oral, EVERY 4 HOURS PRN, Starting on Fri09/14/13 at 1720, Until Fri09/15/13 at 1425, Pain, moderate pain, For Moderate pain. Do not exceed 15 mg in 4 hours. If pain not relieved, call provider., Recovery (Recovery-Hospital Unit), Routine Or oxyCODONE (ROXICODONE) immediate release tablet 15 mg (CANCELED) 15 mg, Oral, EVERY 4 HOURS PRN, Starting on Fri09/14/13 at 1720, Until Fri09/15/13 at 1425, Pain, severe pain, For severe pain. Do not exceed 15 mg in 4 hours. If pain not relieved, call provider., Recovery (Recovery-Hospital Unit), Routine documented in this encounter Care Teams Plane Tender Relationship Specialty Start Date End Date Malinda Mcmillan MD [address] [place] [id number] PCP - General 02/20/10 documented as of this encounter
--- OUTSIDE RECORDS SUMMARY | 2024-04-12 14:09 | XMS_ITS | Encounter Summary ---
Author Organization [facility] [place] [address] Care Team Providers Care Senior Hr Business Partner Name Role Phone Unavailable Primary Care Provider Unavailabl e Encounter Details Date Type Department Care Team (Latest Contact Info) Description 04/15/2007 - 04/15/2007 11:59 PM EST Hospital Encounter Radiology Library at [facility] [place] [address] Tawanda Douglass MD [facility] [place] [address] Pain Discharge Disposition: Home Social History Tobacco Use Types Packs/Day Years Used Date Smoking Tobacco: Never Assessed Sex and Gender Information Value Date Recorded Sex Assigned at Not on file Gender Identity Not on file Sexual Orientation Not on file documented as of this encounter Plan of Treatment Not on file documented as of this encounter Procedures Procedure Name Priority Date/Time Associated Diagnosis Comments FILM LIBRARY STORAGE ONLY MR SPINE Routine 04/15/2007 12:00 AM EST Pain documented in this encounter Results * Film Library- Storage Only MR Spine (04/15/2007 12:00 AM EST) Narrative EVE - 01/09/2016 4:32 PM EDT This exam is for storage only and is auto-finalizing. Tawanda Douglass MD IMG FILM LIBRARY ORD ERABLES [place] documented in this encounter Visit Diagnoses Diagnosis Pain Generalized pain documented in this encounter
--- OUTSIDE RECORDS SUMMARY | 2024-04-12 14:09 | XMS_ITS | Encounter Summary ---
Author Organization [facility] [place] [address] Care Team Providers Care Float Builder Name Role Phone Patricio Gabriel MD Primary Care Provider Encounter Details Date Type Department Care Team (Latest Contact Info) Description 07/23/2013 10:07 AM EDT - 07/23/2013 11:59 PM EDT Hospital Encounter MRI at [facility] [place] [phone] Right lumbar radiculopathy; Chronic low back pain; Chronic leg pain, left Social History Tobacco Use Types Packs/Day Years Used Date Smoking Tobacco: Every Day Cigarettes Sex and Gender Information Value Date Recorded Sex Assigned at Not on file Gender Identity Not on file Sexual Orientation Not on file documented as of this encounter Medications at Time of Discharge Medication Sig Dispensed Refills Start Date End Date amitriptyline (ELAVIL) 25 mg tablet Take 25 mg by mouth nightly. 10/21/2013 atenolol (TENORMIN) 50 mg tablet Take 50 mg by mouth daily. 09/17/2013 metFORMIN (GLUCOPHAGE) 500 mg tablet Take 500 mg by mouth daily. 01/18/2016 traMADol (ULTRAM) 50 mg tablet Take 50 mg by mouth every 6 hours as needed. 09/17/2013 lisinopril (PRINIVIL;ZESTRIL) 10 mg tablet 10 MG = 1 Tablet(s), PO, Once daily 05/25/2009 01/18/2016 documented as of this encounter Plan of Treatment Not on file documented as of this encounter Procedures Procedure Name Priority Date/Time Associated Diagnosis Comments MRI LUMBAR SPINE WITH/WO CONTRAST Routine 07/23/2013 11:32 AM EDT Right lumbar radiculopathy Chronic low back pain Chronic leg pain, left documented in this encounter Results * MRI lumbar spine with/WO contrast (07/23/2013 11:32 AM EDT) Anatomical Region Laterality Modality L-spine Magnetic Resonan ce 07/23/2013 11:3 2 AM EDT Narrative 07/23/2013 11:53 AM EDT Examination MR Lumbar Spine W/WO Oscar Clinical History Back and right>left leg pain. S/P prior spine surgery (2004) with left laminectomy and discectomy at L3-L4 and foraminotomy at L4-L5., left leg pain chronic since prior surgery. ??Right leg pain acute Rule out HNP versus scar tissue Technique MR lumbar spine performed prior to and following intravenous administration of 14 mL Magnevist. Comparison 05/22/2004, plain films 05/16/2013. Findings The overall alignment of the lumbar spine is unremarkable, and unchanged compared to the prior study. ??Marrow signal is somewhat heterogeneous, but there is no focal, aggressive appearing marrow lesion. ??Marrow edema is present at the anterior inferior L4, and anterior superior L5 endplates, especially on the right, which is degenerative. ??The conus remains normal appearance, terminating at the lower limits of normal at L2-L3. ??Visualized retroperitoneal structures are unremarkable. Findings at specific levels: L1-L2: ??Bilateral facet arthropathy is present without central canal, or neural foraminal narrowing. L2-L3: ??Disc bulge and facet arthropathy are present with minimal caudal neural foraminal narrowing. L3-L4: ??There are previous left laminotomy changes. ??A left foraminal disc protrusion is present in the background of disc bulge producing mild caudal neural foraminal narrowing. ??There is mild overall central canal narrowing. Minimal enhancement is present in the epidural space on the left. ?? L4-L5: ??A right paracentral and foraminal disc extrusion is present in the background of disc bulge. ??Disc material and facet arthropathy combine to produce moderate to severe central canal narrowing. ??There is moderate right and mild left foraminal narrowing. ??Disc material impinges on the traversing right L5 root in the subarticular recess. L5-S1: ??A small right paracentral disc protrusion is present in the background disc bulge. ??Combination of endplate proliferation, disc material, and facet arthropathy produce moderate right and left foraminal narrowing. ??There is mild overall central canal narrowing. Disc material contacts the traversing right S1 root. ?? Impression Multilevel degenerative and postsurgical changes. A new disc extrusion at L4-L5 on the right impinges on the traversing right L5 root. Comment: The following findings are so common in people without low back pain that while we report their presence, they must be interpreted with caution and in the context of the clinical situation. (Reference-Ejvik et al, Spine 2001) Findings: (prevalence in patients without low back pain), Disk degeneration (decreased T2 signal, height loss, bulge) (91%), Disk T2-signal loss (83%), Disk height loss (56%), Disk bulge (64%), Disk protrusion (32%), Annular fissure (38%). Procedure Note Ronnie Izaguirre MD - 07/23/2013 Examination MR Lumbar Spine W/WO Oscar Clinical History Back and right>left leg pain. S/P prior spine surgery (2004) with left laminectomy and discectomy at L3-L4 and foraminotomy at L4-L5., left legpain chronic since prior surgery. Right leg pain acute Rule out HNP versus scar tissue Technique MR lumbar spine performed prior to and following intravenousadministration of 14 mL Magnevist. Comparison 05/22/2004, plain films 05/16/2013. Findings The overall alignment of the lumbar spine is unremarkable, and unchanged compared to the prior study. Marrow signal is somewhat heterogeneous, but there is no focal, aggressive appearing marrow lesion. Marrow edema ispresent at the anterior inferior L4, and anterior superior L5 endplates,especially on the right, which is degenerative. The conus remains normal appearance, terminating at the lower limits of normal at L2-L3. Visualizedretroperitoneal structures are unremarkable. Findings at specific levels: L1-L2: Bilateral facet arthropathy is present without central canal, orneural foraminal narrowing. L2-L3: Disc bulge and facet arthropathy are present with minimal caudalneural foraminal narrowing. L3-L4: There are previous left laminotomy changes. A left foraminal disc protrusion is present in the background of disc bulge producing mildcaudal neural foraminal narrowing. There is mild overall central canalnarrowing. Minimal enhancement is present in the epidural space on the left. L4-L5: A right paracentral and foraminal disc extrusion is present in the background of disc bulge. Disc material and facet arthropathy combine to produce moderate to severe central canal narrowing. There is moderateright and mild left foraminal narrowing. Disc material impinges on thetraversing right L5 root in the subarticular recess. L5-S1: A small right paracentral disc protrusion is present in thebackground disc bulge. Combination of endplate proliferation, disc material, andfacet arthropathy produce moderate right and left foraminal narrowing. There ismild overall central canal narrowing. Disc material contacts the traversingright S1 root. Impression Multilevel degenerative and postsurgical changes. A new disc extrusion atL4-L5 on the right impinges on the traversing right L5 root. Comment: The following findings are so common in people without low backpain that while we report their presence, they must be interpreted with cautionand in the context of the clinical situation. (Reference-Kaleigh et al, [id number]) Findings: (prevalence in patients without low back pain), Diskdegeneration (decreased T2 signal, height loss, bulge) (91%), Disk T2-signal loss(83%), Disk height loss (56%), Disk bulge (64%), Disk protrusion (32%), Annular fissure (38%). Collin Sargent MD IMG MRI ORDERABLES documented in this encounter Visit Diagnoses Diagnosis Right lumbar radiculopathy Thoracic or lumbosacral neuritis or radiculitis, unspecified Chronic low back pain Lumbago Chronic leg pain, left documented in this encounter Administered Medications Inactive Administered Medications - up to 3 most recent administrations Medication Order MAR Action Action Date Dose Rate Site gadopentetate dimeglumine (MAGNEVIST) injection 0.2 mL/kg 0.2 mL/kg/dose, Intravenous, ONCE PRN, Per Protocol, Starting on Fri07/23/13 at 1133, 1 dose, Until Fri07/23/13 at 1118 Given 07/23/2013 11:18 AM EDT 14 mLs documented in this encounter Care Teams Float Builder Relationship Specialty Start Date End Date Patricio Gabriel MD [address] [id number] PCP - General 02/20/10 documented as of this encounter
--- OUTSIDE RECORDS SUMMARY | 2024-04-12 14:09 | XMS_ITS | Encounter Summary ---
[place] [address] Care Team Providers Care Wire Coiner Name Role Phone Patricio Gabriel MD Primary Care Provider [phone] Encounter Details Date Type Department Care Team (Late st Contact Info) Description 09/10/2013 Telephone [place] [phone] Jerry Seals RN Social History Tobacco Use Types Packs/Day Years Used Date Smoking Tobacco: Former Cigarettes Q uit: 07/29/2013 Smokeless Tobacco: Never Sex and Gender Information Value Date Recorded Sex Assigned at Not on file Gender Identity Not on file Sexual Orientation Not on file documented as of this encounter Miscellaneous Notes * Telephone Encounter - Jerry Seals RN - 09/10/2013 4:52 PM EDT Call placed to patient; advised pt of need to hold anticoagulants, NSAIDs, ASA products, and FishOil for 7 days preoperatively. Reviewed medication list. Patient is not noted to be on any anticoagulants. Medication list updated. documented in this encounter Plan of Treatment Not on file documented as of this encounter Visit Diagnoses Not on filedocumented in this encounter Care Teams Wire Coiner Relationship Specialty Start Date End Date Patricio Gabriel MD [address] [place] [phone] PCP - General 02/20/10 documented as of this encounter
--- OUTSIDE RECORDS SUMMARY | 2024-04-12 14:09 | XMS_ITS | Encounter Summary ---
Author Organization [facility] [place] [address] Care Team Providers Care Cisco Consultant Name Role Phone Patricio Gabriel MD Primary Care Provider [phone] Encounter Details Date Type Department Care Team (Latest Contact Info) Description 08/11/2013 3:00 PM EDT Clinical [place] [phone] Right lumbar radiculopathy with L4-L5 HNP Social [...] kg (154 lb 3.2 oz) 08/11/2013 2:53 P M EDT Height 165.1 cm (5' 5) 08/11/2013 2:53 PM EDT Body Mass Index 25.66 08/11/2013 2:53 PM EDT documented in this encounter Progress Notes * Karyna Weber RN - 08/11/2013 3:28 PM EDT Questionnaire reviewed with patient, no further interventions needed. No post anesthesia complications. Mild HTN well controlled, new onset of NIDDM well controlled with HgbA1c of 6. Pre-op folder discussed, labs drawn, EKG done. DOS is 09-14-[address] Douglass. documented in this encounter H&P Notes * Provider, Gilberto - 08/25/2013 10:58 AM EDT documented in this encounter Plan of Treatment Not on file documented as of this encounter Procedures Procedure Name Priority Date/Time Associated Diagnosis Comments EKG 12-LEAD Routine 08/11/2013 3:36 PM EDT Right lumbar radiculopathy with L4-L5 HNP documented in this encounter Results * EKG 12 Lead (08/11/2013 3:36 PM EDT) Ventricular rate 52 BPM MUSE SYSTEM Atrial Rate 52 BPM MUSE SYSTEM P-R Interval 124 ms MUSE SYSTEM QRS Duration 138 ms MUSE SYSTEM Q-T Interval 510 ms MUSE SYSTEM QTC Calculated (Bezet) 474 ms MUSE SYSTEM Calculated P [place] 52 degrees MUSE SYSTEM Calculated R [place] 41 degrees MUSE SYSTEM Calculated T [place] 33 degrees MUSE SYSTEM INTERPRETATION Sinus bradycardia Possible Left atrial enlargement Right bundle branch block Abnormal ECG When compared with ECG of 25-MAY-2009 02:16, No significant change was found Confirmed by Ileana JORDAN [facility] ([id number]) on 08/12/2013 12:17:57 PM MUSE SYSTEM 08/11/2013 3:36 PM EDT 08/12/2013 12:17 PM EDT Tawanda Douglass MD ECG ORDERABLES MUSE SYSTEM documented in this encounter Visit Diagnoses Diagnosis Right lumbar radiculopathy with L4-L5 HNP Thoracic or lumbosacral neuritis or radiculitis, unspecified documented in this encounter Care Teams Cisco Consultant Relationship Specialty Start Date End Date Patricio Gabriel MD [address] [place] [id number] PCP - General 02/20/10 documented as of this encounter
--- OUTSIDE RECORDS SUMMARY | 2024-04-12 14:09 | XMS_ITS | Encounter Summary ---
[place] [address] Care Team Providers Care Associate Trainer Name Role Phone Patricio Gabriel MD Primary Care Provider [phone] Encounter Details Date Type Department Care Team (Late st Contact Info) Description 07/21/2013 Telephone [place] [phone] Lakhwinder Rudd Social History Tobacco Use Types Packs/Day Years Used Date Smoking Tobacco: Every Day Cigarettes Sex and Gender Information Value Date Recorded Sex Assigned at Not on file Gender Identity Not on file Sexual Orientation Not on file documented as of this encounter Miscellaneous Notes * Telephone Encounter - Lakhwinder Rudd - 07/21/2013 11:30 AM EDT I HAVE PENDED THIS ORDER TO BE SIGNED documented in this encounter Plan of Treatment Not on file documented as of this encounter Results * Creatinine (07/23/2013 9:56 AM EDT) [facility] Signature Creatinine 0.79 0.70 - 1.20 mg/dL [facility] Comment: Please note that the pediatric reference intervals supplied above were not validated at [facility]. Results from pediatric patients should be interpreted in conjunction to the patient's age, height and muscle mass. Est Glomerular Filtration Rate >60 >=[address] [facility] Comment: This estimated GFR (eGFR) value was [...] the following links into your internet browser. http://www.nkdep.nih.gov/lab-evaluation.shtml http://www.kidney.org/professionals/ Blood specimen (specimen) 07/23/2013 9:56 AM EDT 07/23/2013 10:05 AM EDT Narrative Resulting Agency Comment Spec In Lab Collin Sargent MD CHEMISTRY ORDERABLES Performing Organization Address City/State/[facility] [place] Phone Number [facility] documented in this encounter Visit Diagnoses Diagnosis Thoracic or lumbosacral neuritis or radiculitis, unspecified Lumbago Pain in limb documented in this encounter Care Teams Associate Trainer Relationship Specialty Start Date End Date Patricio Gabriel MD [address] [place] [id number] PCP - General 02/20/10 documented as of this encounter
--- OUTSIDE RECORDS SUMMARY | 2024-04-12 14:09 | XMS_ITS | Encounter Summary ---
[place] [address] Care Team Providers Care Trial Judge Name Role Phone Patricio Gabriel MD Primary Care Provider [phone] Reason for Visit * Reason Comments Right Leg Pain Encounter Details Date Type Department Care Team (Latest Contact Info) Description 07/29/2013 1:30 PM EDT Procedure [place] [phone] Atif Harding MD Thoracic or lumbosacral neuritis or radiculitis, unspecified (Primary Dx) Discharge Disposition: Home Social History Tobacco Use Types Packs/Day Years Used Date Smoking Tobacco: Every Day Cigarettes Smokeless Tobacco: Never Sex and Gender Information Value Date Recorded Sex Assigned at Not on file Gender Identity Not on file Sexual Orientation Not on file documented as of this encounter Last Filed Vital Signs Vital Sign Reading Time Taken Comments Blood Pressure 140/77 07/29/2013 2:19 PM EDT Pulse 59 07/29/2013 2:19 PM EDT Temperature - - Respiratory Rate 16 07/29/2013 2:19 PM EDT Oxygen Saturation 97% 07/29/2013 2:19 PM EDT Inhaled Oxygen Concentration - - Weight 68 kg (150 lb) 07/29/2013 2:01 PM EDT Height 165.1 cm (5' 5) 07/29/2013 2:01 PM EDT Body Mass Index 24.96 07/29/2013 2:01 PM EDT documented in this encounter Patient Instructions * Patient Instructions* Alyssa Banks, FRANSISCO - 07/29/2013 2:11 PM EDT [facility] Discharge Instructions: You were seen by Dr. Atif Harding MD and William Foss MD who performed Right transforaminal injection. [x] You may resume your normal activities: [...] your bladder 4-6 hours after your procedure. [x] If you have diabetes, monitor your blood sugars frequently. If your blood sugar increases and is of concern, contact your Primary Care Provider. You received the following medications: Lidocaine, Omnipaque [...] or proceed to your local emergency department. Alyssa Banks LPN Special instructions documented in this encounter Progress Notes * Atif Harding MD - 07/30/2013 2:23 PM EDT I was the attending physician supervising the resident in the above care and I was present with theresident for the entire procedure. Atif Harding MD, MS * Alyssa Banks LPN - 07/29/2013 2:01 PM EDT Pre-Procedure Screening Questions: 1. Status: No 2. 3. Patient states they have a pick up driver to transport after procedure? Yes 4. Patient taking antibiotics at present? No 5. NPO per [facility] protocol? No 6. 7. Patient diabetic: Yes _x_ borderline (not treated with medications) __ managed with oral medications __ managed with injected medications 8. Patient routinely taking anticoagulants ? No Date stopped Current INR Patient Vital Signs documented in Doc Flowsheets associated with this encounter. Patient Discharge Instructions were reviewed with patient and copy provided to patient. documented in this encounter Procedure Notes * William Foss MD - 07/29/2013 1:36 PM EDTAssociated Order(s): TRANSFORAMINAL INJECTION Procedure(s): TRANSFORAMINAL INJECTION Pre-Procedure Diagnose(s): Thoracic or lumbosacral neuritis or radiculitis, unspecified Post-Procedure Diagnose(s): Thoracic or lumbosacral neuritis or radiculitis, unspecified LUMBAR / SACRAL TRANSFORAMINAL INJECTION Chief Complaint:Right lower extremity pain, referred by Dr. Douglass for a Right L4-5 TransforaminalInjection Yesi Estrella has been referred to the [facility] for a transforaminal nerve root block and steroid injection. Yesi Estrella was interviewed and the medical record reviewed. There were no medical, pharmacologic, radiographic or other structural contraindications to attempting fluoroscopically guided transforaminal nerve root block and epidural steroid injection. Risks and expected side effects as well as potential benefit of the procedure were reviewed with Yesi Estrella, and her voiced concerns addressed. The printed consent form was signed and witnessed. Yesi Estrella was placed in the prone position on the fluoroscopy table and automated blood pressure cuff and pulse oximeter applied. Fluoroscopy was utilized to identify the L-4 vertebral body. The right-sided oblique projection was then fashioned to see the neck of the leonora-dog at the L-4 neural foramen. A Chlorhexadine prep was carried out, and sterile drapes were applied. Local anesthesia was achieved in the skin and subcutaneous tissues. A 22 gauge curved tip spinal needle was then inserted, advanced with fluoroscopic guidance until it entered into the neural foramen, confirmed on the lateral view. After negative aspiration, 1 cc of Omnipaque 240 was injected. This showed a good s pread of dye transforaminally into the epidural space. After repeat negative aspiration 10 mg of dexamethasone (10 mg/ml) was injected, followed by 0.25 ml of 1% Lidocaine. There was no unusual discomfort expressed by Yesi Estrella. The needle was withdrawn. The patient tolerated the procedure well. A Band-Aid was applied. Follow up plan and appointments were discussed with Yesi Estrella. Post procedure instructions were given as documented in nursing records and having met discharge criteria, she was discharged from the [facility]. COMMENTS: The patient tolerated the procedure well. She can follow up in the Pain Clinic for a repeat injection as desired, otherwise will follow up in the [facility] for continued management. documented in this encounter Plan of Treatment Pending Results Name Type Priority Associated Diagnoses Date /Time XR Fluoro OR c-arm storage only Imaging Routine 07/29/2013 4:22 PM EDT Scheduled Orders Name Type Priority Associated Diagnoses Orde r Schedule XR Fluoro OR c-arm storage only Imaging Routine Once PRN (for Ra diant use) for 1 Occurrences starting 07/29/2013 until 07/29/2013 documented as of this encounter Procedures Procedure Name Priority Date/Time Associated Diagnosis Comments TRANSFORAMINAL INJECTION Routine 07/29/2013 2:26 PM EDT Thoracic or lumbosacral neuritis or radiculitis, unspecified documented in this encounter Results * TRANSFORAMINAL INJECTION (07/29/2013 2:26 PM EDT) Narrative William Foss MD - 07/29/2013 2:26 PM EDT William Foss MD ? 07/29/2013 ??2:26 PM LUMBAR / SACRAL TRANSFORAMINAL INJECTION Chief Complaint:Right lower extremity pain, referred by Dr. Douglass for a Right L4-5 Transforaminal Injection Yesi Estrella has been referred to the [facility] for a transforaminal nerve root block and steroid injection. ?? Yesi Estrella was interviewed and the medical record reviewed. ??There were no medical, pharmacologic, radiographic or other structural contraindications to attempting fluoroscopically guided transforaminal nerve root block and epidural steroid injection. ??Risks and expected side effects as well as potential benefit of the procedure were reviewed with Yesi Estrella, and her voiced concerns addressed. ??The printed consent form was signed and witnessed. ?? Yesi Estrella was placed in the prone position on the fluoroscopy table and automated blood pressure cuff and pulse oximeter applied. ??Fluoroscopy was utilized to identify the L-4 vertebral body. ??The right-sided oblique projection was then fashioned to see the neck of the leonora-dog at the L-4 neural foramen. ??A Chlorhexadine prep was carried out, and sterile drapes were applied. ??Local anesthesia was achieved in the skin and subcutaneous tissues. ??A 22 gauge curved tip spinal needle was then inserted, advanced with fluoroscopic guidance until it entered into the neural foramen, confirmed on the lateral view. ?? After negative aspiration, 1 cc of Omnipaque 240 was injected. ?? This showed a good spread of dye transforaminally into the epidural space. ??After repeat negative aspiration 10 mg of dexamethasone (10 mg/ml) was injected, followed by 0.25 ml of 1% Lidocaine. ??There was no unusual discomfort expressed by Yesi Estrella. ??The needle was withdrawn. The patient tolerated the procedure well. ??A Band-Aid was applied. Follow up plan and appointments were discussed with Yesi Estrella. Post procedure instructions were given as documented in nursing records and having met discharge criteria, she was discharged from the [facility]. COMMENTS: The patient tolerated the procedure well. She can follow up in the Pain Clinic for a repeat injection as desired, otherwise will follow up in the [facility] for continued management. Procedure Note William Foss MD - 07/29/2013 1:36 PM EDT LUMBAR / SACRAL TRANSFORAMINAL INJECTION Chief Complaint:Right lower extremity pain, referred by Dr. Douglass for aRight L4-5 Transforaminal Injection Yesi Estrella has been referred to the [facility] for atransforaminal nerve root block and steroid injection. Yesi Estrella was interviewed and the medical record reviewed. Therewere no medical, pharmacologic, radiographic or other structuralcontraindications to attempting fluoroscopically guided transforaminalnerve root block and epidural steroid injection. Risks and expected sideeffects as well as potential benefit of the procedure were reviewed withYesi Estrella, and her voiced concerns addressed. The printed consentform was signed and witnessed. Yesi Estrella was placed in the prone position on the fluoroscopytable and automated blood pressure cuff and pulse oximeter applied.Fluoroscopy was utilized to identify the L-4 vertebral body. Theright-sided oblique projection was then fashioned to see the neck of theleonora-dog at the L-4 neural foramen. A Chlorhexadine prep was carriedout, and sterile drapes were applied. Local anesthesia was achieved inthe skin and subcutaneous tissues. A 22 gauge curved tip spinal needlewas then inserted, advanced with fluoroscopic guidance until it enteredinto the neural foramen, confirmed on the lateral view. After negativeaspiration, 1 cc of Omnipaque 240 was injected. This showed a good spreadof dye transforaminally into the epidural space. After repeat negativeaspiration 10 mg of dexamethasone (10 mg/ml) was injected, followed by0.25 ml of 1% Lidocaine. There was no unusual discomfort expressed byYesi Estrella. The needle was withdrawn. The patient tolerated theprocedure well. A Band-Aid was applied. Follow up plan and appointments were discussed with Yesi Estrella.Post procedure instructions were given as documented in nursing recordsand having met discharge criteria, she was [facility]. COMMENTS: The patient tolerated the procedure well. She can follow up inthe Pain Clinic for a repeat injection as desired, otherwise will followup in the [facility] for continued management. Atif Harding MD PROCEDURE/MINOR S URGICAL ORDERABLES documented in this encounter Visit Diagnoses Diagnosis Thoracic or lumbosacral neuritis or radiculitis, unspecified- Primary documented in this encounter Administered Medications Inactive Administered Medications - up to 3 most recent administrations Medication Order MAR Action Action Date Dose Rate Site dexamethasone sodium (PF) injection 10 mg 10 mg, Epidural, ONCE, 1 dose, On Ghislaine 07/29/13 at 1400, Routine Given 07/29/2013 2:00 PM EDT 10 mg iohexol (OMNIPAQUE) injection 1 mL 1 mL, Epidural, ONCE, 1 dose, On Ghislaine 07/29/13 at 1400, Wasted 49 ml, Routine Given 07/29/2013 2:00 PM EDT 1 mL documented in this encounter Care Teams Trial Judge Relationship Specialty Start Date End Date Patricio Gabriel MD [address] [place] [id number] PCP - General 02/20/10 documented as of this encounter
--- OUTSIDE RECORDS SUMMARY | 2024-04-12 14:09 | XMS_ITS | Encounter Summary ---
[place] [address] Care Team Providers Care Hollock Maker Name Role Phone Patricio Gabriel MD Primary Care Provider Reason for Visit * Reason Onset Date Comments Medication Refill 10/14/2013 Dilaudid hardik johnson Encounter Details Date Type Department Care Team (Late st Contact Info) Description 10/14/2013 [place] [id number] Jerry Seals RN Social History Tobacco Use Types Packs/Day Years Used Date Smoking Tobacco: Former Cigarettes Q uit: 07/29/2013 Smokeless Tobacco: Never Sex and Gender Information Value Date Recorded Sex Assigned at Not on file Gender Identity Not on file Sexual Orientation Not on file documented as of this encounter Miscellaneous Notes * Telephone Encounter - Jerry Seals RN - 10/14/2013 4:44 PM EDT Received call from patient requesting refill of Hydromorphone 2 mg tabs, she reports that she is taking 2 tabs Q 6 hours along with tylenol. Patient is s/p 09/14/13 revision right L4-S1 decompression,right L4-5 discectomy. She reports that her back is healing well, she is still experiencing right leg pain in the same location as pre op, feels that it is a little less than it was pre op. She reports a supply on hand at current dosing to last until 10/18/13 and she is requesting refill be mailed to her local pharmacy. Above request discussed with Dr. Douglass, he authorized refill of Hydromorphone 2 mg tabs changing frequency to 1-2 tabs Q 8-12 hours, he also recommends trial of Gabapentin 300 mg. Patient was contacted and informed of the above. Reviewed dose and frequency and patient stated awareness of change. Also discussed addition of Gabapentin 300 mg, patient would like to try this. Review titration instructions working up to 1 tabs 3 times a day. Patient stated understanding of instructions. She will f/u as needed. Hydromorphone prescription mailed as requested. documented in this encounter Plan of Treatment Not on file documented as of this encounter Visit Diagnoses Not on filedocumented in this encounter Care Teams Hollock Maker Relationship Specialty Start Date End Date Patricio Gabriel MD [address] [place] [id number] PCP - General 02/20/10 documented as of this encounter
--- OUTSIDE RECORDS SUMMARY | 2024-04-12 14:09 | XMS_ITS | Encounter Summary ---
Author Organization [facility] [place] [address] Care Team Providers Care Tire Installer Name Role Phone Patricio Gabriel MD Primary Care Provider [phone] Reason for Visit * Reason Comments Low Back Pain Encounter Details Date Type Department Care Team (Latest Contact Info) Description 08/11/2013 1:40 PM EDT Office [place] [id number] Tawanda Douglass MD [facility] [place] [address] Right lumbar radiculopathy with L4-L5 HNP (Primary Dx); Aching leg syndrome Discharge Disposition: Home Social History Tobacco Use Types Packs/Day Years Used Date Smoking Tobacco: Former Cigarettes Q uit: 07/29/2013 Smokeless Tobacco: Never Sex and Gender Information Value Date Recorded Sex Assigned at Not on file Gender Identity Not on file Sexual Orientation Not on file documented as of this encounter Progress Notes * Tawanda Douglass MD - 08/11/2013 2:06 PM [...] convenience. documented in this encounter Miscellaneous Notes * Addendum Note - Mike Vicente - 08/11/2013 3:45 PM EDTAddended by: MIKE VICENTE on: 08/11/2013 03:45 PM Modules accepted: Orders documented in this encounter Plan of Treatment Not on file documented as of this encounter Procedures Procedure Name Priority Date/Time Associated Diagnosis Comments DIFFERENTIAL, AUTOMATED Routine 08/11/2013 3:30 PM EDT TYPE AND SCREEN, SDP (FUTURE SURGERY, [facility] SAME DAY PROGRAM ONLY) Routine 08/11/2013 3:30 PM EDT Right lumbar radiculopathy with L4-L5 HNP ABO/RH TYPING Routine 08/11/2013 3:30 PM EDT Right lumbar radiculopathy PROTHROMBIN TIME Routine 08/11/2013 3:30 PM EDT Aching leg syndrome Right lumbar radiculopathy with L4-L5 HNP CBC (WITH DIFF) Routine 08/11/2013 3:30 PM EDT Right lumbar radiculopathy with L4-L5 HNP ANTIBODY SCREEN Routine 08/11/2013 3:30 PM EDT Right lumbar radiculopathy BASIC METABOLIC PANEL Routine 08/11/2013 3:30 PM EDT Right lumbar radiculopathy with L4-L5 HNP documented in this encounter Results * XR lumbar spine 2 or 3 views (10/21/2013 1:07 PM EDT) Anatomical Region Laterality Modality L-spine N/A Radiographic Montse ging 10/21/2013 1:07 PM EDT Narrative 10/21/2013 4:41 PM EDT Examination LSPINE 2 OR 3 VIEWS Clinical History s/p surgery Comparison Radiographs of the lumbar spine from 05/16/2013, 09/14/2013. Technique 2 views of the lumbar spine, AP and lateral both standing. Findings There are 5 non rib bearing lumbar vertebral bodies. ??Vertebral body heights are preserved. ??There has been interval laminectomies performed of L4 and L5. Unchanged straightening of the normal lumbar lordosis and unchanged mild anterolisthesis of L4 on L5. Diffuse degenerative changes of the lumbar spine consisting of facet arthropathy, marginal osteophytosis, and disc space narrowing most pronounced at L4-L5. ?? Impression Interval laminectomies of L4 and L5 without change in alignment. ?? Degenerative changes, as described above. Film and interpretation reviewed by the attending Procedure Note Lucille Arora MD - 10/21/2013 Examination LSPINE 2 OR 3 VIEWS Clinical History s/p surgery Comparison Radiographs of the lumbar spine from 05/16/2013, 09/14/2013. Technique 2 views of the lumbar spine, AP and lateral both standing. Findings There are 5 non rib bearing lumbar vertebral bodies. Vertebral bodyheights are preserved. There has been interval laminectomies performed of L4 andL5. Unchanged straightening of the normal lumbar lordosis and unchanged mild anterolisthesis of L4 on L5. Diffuse degenerative changes of the lumbarspine consisting of facet arthropathy, marginal osteophytosis, and disc space narrowing most pronounced at L4-L5. Impression Interval laminectomies of L4 and L5 without change in alignment. Degenerative changes, as described above. Film and interpretation reviewed by the attending Tawanda Douglass MD IMG DX ORDERABLES * EKG 12 Lead (08/11/2013 3:36 PM EDT) Ventricular rate 52 BPM MUSE SYSTEM Atrial Rate 52 BPM MUSE SYSTEM P-R Interval 124 ms MUSE SYSTEM QRS Duration 138 ms MUSE SYSTEM Q-T Interval 510 ms MUSE SYSTEM QTC Calculated (Bezet) 474 ms MUSE SYSTEM Calculated P [place] 52 degrees MUSE SYSTEM Calculated R [place] 41 degrees MUSE SYSTEM Calculated T [place] 33 degrees MUSE SYSTEM INTERPRETATION Sinus bradycardia Possible Left atrial enlargement Right bundle branch block Abnormal ECG When compared with ECG of 25-MAY-2009 02:16, No significant change was found Confirmed by Adria Tejeda MD ([id number]) on 08/12/2013 12:17:57 PM MUSE SYSTEM 08/11/2013 3:36 PM EDT 08/12/2013 12:17 PM EDT Tawanda Douglass MD ECG ORDERABLES MUSE SYSTEM * Differential, Automated (08/11/2013 3:30 PM EDT) Neutrophil % 43.6 34.0 - 71.0 % CERNER MILLENNIUM Neutrophil Absolute 2.58 1.50 - 6.30 x10(3)/mcL CERNER MILLENNIUM Lymph % 40.6 19.0 - 53.0 % CERNER MILLENNIUM Lymphocytes Abs 2.4 1.0 - 3.6 x10(3)/mcL CERNER MILLENNIUM Monocyte % 9.6 4.0 - 13.0 % CERNER MILLENNIUM Monocyte Abs 0.6 0.2 - 1.0 x10(3)/mcL CERNER MILLENNIUM Eos % 5.2 0.0 - 7.0 % CERNER MILLENNIUM Eosinophils Abs 0.3 0.0 - 0.5 x10(3)/mcL CERNER MILLENNIUM Basophil % 0.8 0.0 - 2.0 % CERNER MILLENNIUM Baso Absolute 0.0 0.0 - 0.2 x10(3)/mcL CERNER MILLENNIUM Immature Gran % 0.20 0.00 - 0.66 % CERNER MILLENNIUM Comment: Immature granulocytes(IG's)percentage and absolute count will include metamyelocytes, myelocytes, and promyelocytes. Blood smears from CBCs yielding IG's will be scanned manually for concordance. If this scan disagrees with the automated IG or if promyelocytes are noted, a manual differential will be performed. Immature Gran Absolute 0.01 0.00 - 0.05 x10(3)/mcL CERNER MILLENNIUM Blood specimen (specimen) 08/11/2013 3:30 PM EDT 08/11/2013 3:44 PM EDT Tawanda Douglass MD HEMATOLOGY ORDERABLE S CERNER MILLENNIUM * Antibody screen (08/11/2013 3:30 PM EDT) Ab Screen Interp Negative OSWALD JACKMAN Expires at [id number] on: [id number] OSWALD BERTRANDIUM Comment:Corrected from 09/14 12:00 [Unknown] on 09/10/13 08:28 by Jackie Khalil. Blood specimen (specimen) 08/11/2013 3:30 PM EDT 08/11/2013 3:47 PM EDT Narrative Resulting Agency Comment Spec In Lab Tawanda Douglass MD BLOOD BANK LAB ORDER IZZY Performing Organization Address City/[facility] Co de Phone Number OSWALD JACKMAN * ABO/Rh Typing (08/11/2013 3:30 PM EDT) ABORH Type O Pos OSWALD JACKMAN Blood specimen (specimen) 08/11/2013 3:30 PM EDT 08/11/2013 3:47 PM EDT Narrative Resulting Agency Comment Spec In Lab Tawanda Douglass MD BLOOD BANK LAB ORDER IZZY Performing Organization Address City/[facility] Co de Phone Number OSWALD JACKMAN * Prothrombin Time (08/11/2013 3:30 PM EDT) Prothrombin Time 12.0 12.0 - 15.0 sec [facility] Comment: [facility] Transfusion Committee Guidelines: INR less than 2.0, PTT less than OR equal to 43.5 seconds, or Fibrinogen greater than or equal to 100 mg/dl indicate adequate procoagulant activity for hemostasis in patients without underlying bleeding disorders. International Normalization Ratio 0.9 0.9 - 1.1 OSWALD JACKMAN Blood specimen (specimen) 08/11/2013 3:30 PM EDT 08/11/2013 3:44 PM EDT Narrative Resulting Agency Comment Spec In Lab Tawanda Douglass MD HEMATOLOGY ORDERABLE S Performing Organization Address City/[facility] Co de Phone Number OSWALD JACKMAN * (ABNORMAL) Basic Metabolic Panel (non-fasting) (08/11/2013 3:30 PM EDT) [facility] Glucose 105 60 - 199 mg/dL CERNER MILLENNIUM Comment:Diabetes: >=200 mg/d L plus symptoms Blood Urea Nitrogen 14 8 - 18 mg/dL CERNER MILLENNIUM Creatinine 0.96 0.70 - 1.20 mg/dL CERNER MILLENNIUM Comment: Please note that the pediatric reference intervals supplied above were not validated at [facility]. Results from pediatric patients should be interpreted in conjunction to the patient's age, height and muscle mass. Sodium 140 135 - 145 mmol/L CERNER MILLENNIUM Potassium 4.2 3.5 - 5.0 mmol/L CERNER MILLENNIUM Comment: Please note: ??Patients with WBC >100,000 may have falsely elevated Potassium levels. ??For accurate Potassium quantification in these patients send serum separator tube (gold top) for subsequent determinations. ??Contact the Clinical Chemistry Laboratory if there are any questions. Chloride 100 98 - 107 mmol/L CERNER MILLENNIUM Carbon Dioxide 31 22 - 31 mmol/L CERNER MILLENNIUM Anion Gap 9 5 - 15 mmol/L CERNER MILLENNIUM Calcium 9.0 8.5 - 10.5 mg/dL CERNER MILLENNIUM Est Glomerular Filtration Rate 59(L) >=60 CERNER MILLENNIUM Comment: This estimated GFR [...] internet browser. http://www.nkdep.nih.gov/lab-evaluation.shtml http://www.kidney.org/professionals/ Blood specimen (specimen) 08/11/2013 3:30 PM EDT 08/11/2013 3:44 PM EDT Narrative Resulting Agency Comment Spec In Lab Tawanda Douglass MD CHEMISTRY ORDERABLES CERNER MILLENNIUM * (ABNORMAL) CBC (with Diff) (08/11/2013 3:30 PM EDT) White Blood Cell 5.9 4.0 - 10.0 x10(3)/mc L CERNER MILLENNIUM Red Blood Cell 4.50 3.93 - 5.22 x10(6)/mc L CERNER MILLENNIUM Hemoglobin 14.2 11.2 - 15.7 gm/dL CERNER MILLENNIUM Hematocrit 42.6 34.0 - 45.0 % CERNER MILLENNIUM Mean Cell Volume 94.7(H) 79.0 - 94.0 fL CERNER MILLENNIUM Mean Cell Hemoglobin 31.6 26.6 - 32.2 pg CERNER MILLENNIUM Mean Cell Hemoglobin Concentration 33.3 32.0 - 36.5 gm/dL CERNER MILLENNIUM Platelet 215 145 - 370 x10(3)/mc L CERNER MILLENNIUM RDW Standard Deviation 43.9 35.0 - 46.0 fL CERNER MILLENNIUM RDW coefficient of variation 12.7 10.9 - 14.4 % CERNER MILLENNIUM Mean Platelet Volume 10.8 9.0 - 12.0 fL CERNER MILLENNIUM Blood specimen (specimen) 08/11/2013 3:30 PM EDT 08/11/2013 3:44 PM EDT Narrative Resulting Agency Comment Spec In Lab Tawanda Douglass MD HEMATOLOGY ORDERABLE S OSWALD JACKMAN documented in this encounter Visit Diagnoses Diagnosis Right lumbar radiculopathy with L4-L5 HNP- Primary Thoracic or lumbosacral neuritis or radiculitis, unspecified Aching leg syndrome Right lumbar radiculopathy with L4-L5 HNP Thoracic or lumbosacral neuritis or radiculitis, unspecified documented in this encounter Care Teams Tire Installer Relationship Specialty Start Date End Date Patricio Gabriel MD [address] [address] PCP - General 02/20/10 documented as of this encounter
--- OUTSIDE RECORDS SUMMARY | 2024-04-12 14:09 | XMS_ITS | Encounter Summary ---
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 Name Role Phone Patricio Gabriel MD Primary Care Provider Encounter Details Date Type Department Care Team (Late st Contact Info) Description 07/17/2013 External Results XRay at [address] [place] [phone] Provider, Scanning Social History Tobacco Use Types Packs/Day Years Used Date Smoking Tobacco: Never Assessed Sex and Gender Information Value Date Recorded Sex Assigned at Not on file Gender Identity Not on file Sexual Orientation Not on file documented as of this encounter Plan of Treatment Not on file documented as of this encounter Procedures Procedure Name Priority Date/Time Associated Diagnosis Comments DIAGNOSTIC RADIOLOGY SCAN Routine 05/16/2013 documented in this encounter Results * Scan Doc: Diagnostic Radiology (05/16/2013) Anatomical Region Laterality Modality Other Scanning Provider MEDIA MGR SCAN EXT O RDR/RSLT documented in this encounter Visit Diagnoses Not on filedocumented in this encounter Care Teams Fishing Vessel Captain Relationship Specialty Start Date End Date Patricio Gabriel MD [address] [place] [id number] PCP - General 02/20/10 documented as of this encounter
--- OUTSIDE RECORDS SUMMARY | 2024-04-12 14:09 | XMS_ITS | Encounter Summary ---
Author Organization [facility] [place] [address] Care Team Providers Care Epidemiology Internship Name Role Phone Malinda Mcmillan MD Primary Care Provider [phone] Encounter Details Date Type Department Care Team (Latest Contact Info) Description 09/14/2013 9:06 PM EDT - 09/17/2013 3:06 PM EDT Hospital Encounter [address] [place] [address] Tawanda Diego MD [facility] [place] [address] [place] [address] Right lumbar radiculopathy; Chronic low back pain; S/P Revision Right L4-S1 decompression, Right L4-5 diskectomy - 09/14/13 (Evonne); Atrial fibrillation with RVR Discharge Disposition: Home with VNA Social History [...] 36.7 ??C (98.1 ??F) 09/17/2013 2:00 PM ED T Respiratory Rate 16 09/17/2013 2:00 PM EDT Oxygen Saturation 94% 09/17/2013 2:00 PM EDT Inhaled Oxygen Concentration - - Weight 68 kg (149 lb 14.6 oz) 09/15/2013 7:39 PM EDT Height 165.1 cm (5' 5) 09/15/2013 7:39 PM EDT Body Mass Index 24.95 09/15/2013 7:39 PM EDT documented in this encounter Discharge Instructions * Discharge Instructions* Onel Rtuherford MD - 09/17/2013 1:40 PM EDT Activity: [...] them. 3. You should also take an rcdm-nkh-qqekpzu stool softener, such as Colace or Senna, [...] please contact the Spine Center Prescription Lineat [phone]. PRESCRIPTION RENEWAL REQUESTS CAN TAKE UP TO 3 DAYS TO FILL. YOU WILL BE REQUIRED TO CONSUMER AFFAIRS SPECIALIST YOUR NARCOTIC REFILL PRESCRIPTION IN PERSON AT [facility] OR IT CAN BE MAILED TO YOUR [...] fallen off already. PLEASE CALL US AT [phone] TO SPEAK WITH A SPINE CENTER NURSE [...] Important Phone Numbers: Clinical issues, nurse questions: [phone] Medication renewals: [phone] Appointments for Rebecca Diego : [phone] Follow Up Appointments: 1. You will have follow-up appointments at [facility] as indicated in the ???Future Appointments and [...] 1:00 PM Tawanda Diego MD [facility] documented in this encounter Medications at [...] at home and referrals for VNA Thru [place] [facility]. Will ask RS to update VNA [...] Social History: Patient lives with her in [place] w/ her who is retired Stairs: [...] form home managment LOLLY LAINEZ PT Pager: [phone] * Tawanda Diego MD - 09/17/2013 7:42 [...] -medicine consult -dressing change as needed -fu Diego 4 weeks post op with x-rays Spine [...] feels she is ready for d/c. * GloriaDaniel jackson Christiano - 09/17/2013 1:39 AM EDT S: At [...] medications. Pt has received her FWW from [place] and [facility] in her home town. He will secure. Pt feels she has improved pain management for now and is anticipating d/c tomorrow, home with VNA servuces. * Tea Mittal - 09/16/2013 11:54 AM EDT chChaplaincy Encounter Note Patient Name: Yesi Estrella : [id number] MR#: [id number] Admit Date: 09/14/2013 9:06 PM Hospital Day 2 days Narrative: Visited to introduce and assess acceptance of Senior Technical Editor services. Assessment: Senior Technical Editor services accepted. Intervention and Outcome: Follow-up: Will coordinate follow-up services with Senior Technical Editor staff. Time in Direct Care: 5 minutes. [...] Per nursing, pt has been replaced in attache until pain management improved. Pt is available to assist with needs at discharge and she an aunt who will also come and stay and assist as needed. We discussed additional assist oif VNA and pt and are agreeable. Pt and request FWW and also over toilet extension seat. They request securing from [facility] and would like delivered to inpt room. Pt aware she may not have coverage for DME. Will secure DME and notify VNA. A list of INTRAMURAL DIRECTOR???s which serve the geographic area which the patient resides. Patient requests referral to [facility] Referrals sent via [employer] by [employer] Administrator. Anticipate pt will d/c once pain controlled adequately. Tel call to Annamaria narendra in [place] per pt request. Provided script and demos [...] I/O last 3 completed shifts: In: 1999 [I.V.:2000] Out: 195 [Urine:145; Blood:50] I/O this [...] Chong RN - 09/14/2013 7:27 PM EDT 1915 - report from RAFA Riley and care resumed. Monitor alarms set per pacu protocols. at bedside to visit and updated - supported. Has all pt's belongings with him. Pt alert and oriented. Perrl, snell. Pt does state that right leg is slight numb and tingling - slight more than her normal. Pain mostly in lower back 5/10. Pt using attache dilaudid as ordered and lissa well. Pt states pain level much better than her normal pain level. Also states sore around breast area and along right hip - no redness noted, no breakdown noted. Pt was prone for procedure - insructed pt maybe due to positioning for surgery. gd sats on 3L inseam trimmer - lungs clear. Vss. IVF infusing via [...] pain level improved with better use of attache button. Vss. uop improved after ivf given by previous RN. Dressing remains cdi. 2019 - turned pt back to flat - pt did well repositioning herself. gd uop. Vss. Pain controlled. Report called to RAFA salomon and pt readied for transfer to [facility] via bed. * Ketty Braxton - 09/14/2013 6:37 PM EDT Pt arrived from OR to PACU @ 1713. Alarms active and audible per PACU protocol. A/Ox4, VSS. C/o 10/10 pain in her back and R leg. IV dilaudid given, PO oxycodone and tylenol given, HUNTER GUIDE teaching with return demonstration showing understanding. Dressing CDI. No N/V. Repositioned on L side with pillowsupport for comfort. Skin reddened around sternum r/t postioning in OR but is blanching. 1830-- Pain 4/10 and tolerable for pt. C/o [...] 09/18/2013 9:19 AM EDTAssociated Order(s): SCAN DOC: COPYRIGHT EXPERT documented in this encounter Miscellaneous Notes * Miscellaneous - Provider, Scanning - 09/18/2013 9:19 AM EDT * Miscellaneous - Provider, Scanning - 09/18/2013 9:19 AM EDT * Discharge Summary - Onel Rutherford MD - 09/17/2013 1:22 PM EDT Discharge Summary Patient Name: Yesi Estrella Patient Age: 63 y.o. Language: Vietnamese Race: White Ethnicity: Not nor Admit date: [...] Inpatient Provider Contact Information: Dr. Diego Spine: [phone] After hours and weekends, call [facility] Wet Crown Blocking Operator, , and have Orthopedic resident paged. Discharge [...] was changed to oral pain medications and HUNTER GUIDE was discontinued on POD#1. The miller catheterwas [...] Rate: [70-137] Blood Pressure BP: 80/52 mmHg @boyjzqb74@ Respiratory Rate Resp: 18 Resp: [18] SpO2 SpO2: 94 % @eiafmrjy74@ Art BP BP (Arterial Line): -- Functional and Cognitive Status: Normal and Stable Important Studies and Lab Data: Labs: Last 3 wbc, hgb, hct plt Recent Labs Basename 09/17/13 0935 09/15/ 0601 08/11/ 1530 WBC 9.2 15.3* 5.9 HGB 10.3* [...] Administered Date(s) Administered ??? Influenza Vaccine (Novel) [id number], Injectable 01/29/2009 ??? Influenza Vaccine, Whole 01/29/2009 [...] them. 3. You should also take an yemu-rzj-nyygmsz stool softener, such as Colace or Senna, [...] please contact the Spine Center Prescription Lineat [phone]. PRESCRIPTION RENEWAL REQUESTS CAN TAKE UP TO 3 DAYS TO FILL. YOU WILL BE REQUIRED TO CONSUMER AFFAIRS SPECIALIST YOUR NARCOTIC REFILL PRESCRIPTION IN PERSON AT [facility] OR IT CAN BE MAILED TO YOUR [...] fallen off already. PLEASE CALL US AT [phone] TO SPEAK WITH A SPINE CENTER NURSE [...] Important Phone Numbers: Clinical issues, nurse questions: [phone] Medication renewals: [phone] Appointments for Rebecca Diego : [phone] Follow Up Appointments: 1. You will have follow-up appointments at [facility] as indicated in the ???Future Appointments and [...] 1:00 PM Tawanda Diego MD [facility] Future Appointments and Orders Future Appointments: Provider: Department: Dept Phone: Center: 10/13/2013 1:00 PM Tawanda Diego MD Spine Center [phone] [facility] Future Orders Please Complete By Expires Referral to Home Health [DLP4719 CPT(R)] Process Instructions: Scheduling Instructions: Comments: DOCUMENTATION FOR VNA SERVICES (INCLUDING THOSE PATIENTS WITH MEDICARE COVERAGE REQUIRING HOME VNA SERVICES AND/OR HOSPICE SERVICES) PATIENT'S LOCATION: [address] [address] (home) Structural Biologist's Name: self and In discussion with the attending physician, it is certified that this patient is under their care and that they, or a Nurse Practitioner,Clinical Nurse specialist or Physician Heel Builder who is working directly with them, had [...] rehab for managing ADL's.- evaluate need for INTRAMURAL DIRECTOR HOME HEALTH CARE [facility] PHONE: [phone] FAX: [phone] Start of care: Day after discharge FOR [...] from this patient's PCP: MALINDA MCMILLAN MD [address] / [facility] [address] All A agencies which cover the area of patient's residence have been reviewed, either verbally chino writing, and patient/family have chosen the home health care agency noted Questions: Responses: Agency name and contact information [facility] Patient location post discharge Home What services are requested Registered Nurse Physical Therapy Start date Responsible MD post discharge contact info PCP Echocardiogram South/External [[id number] Custom] 09/17/13 09/16/14 Process Instructions: Scheduling Instructions: [...] 165 cm. Questions: Responses: Vendor Name/Contact information: [facility] Primary Care Provider: MALINDA MCMILLAN MD [phone] * Consult Note - Bhavna Harris MD [...] Illicits: Denies Living Situation: [place] Vitals: Last value Range last 24 [...] r CHADS2 score is 2 and her BHINO3PFVM score is 3, this was a transient [...] required. OZZY ADKINS MD 09/17/2013 Consult pager #[phone] Personal pager #[phone] Attending Staff Documentation I have examined the [...] Charo Mallory * Initial Assessments - Lolly murillo, PT - 09/15/2013 9:24 AM EDT Physical [...] LUMBAR performed by Tawanda Diego MD at [facility] ??? Redo excis lumbar disc 09/14/2013 LAMINOTOMY W\DECOMPRESSION, ONE LVL, LUMBAR ,RE-EXPL (INCLDNG PART. FACETECTOMY, FORAMINOTOMY &\OR DISCECTOMY) performed by Tawanda Diego MD at [facility] Social History: Patient lives with her in [place], [place] w/ her who is retired Stairs: [...] treatment: 0 minutes LOLLY LAINEZ PT Pager: [phone] * Plan of Care - Pito Liu RN - 09/15/2013 4:26 AM EDT Problem: General Plan of Care Goal: Plan of Care Review Pain controlled with HUNTER GUIDE dilaudid, refused PO medications due to nausea, Given zofran x 2 with goodrelief. * Op Note - Tawanda Diego MD - 09/14/2013 4:59 PM EDT [facility] Operative Note Patient Name: Yesi Estrella : [id number] MR#: [id number] Case Date: 09/14/2013 Surgeon: Surgeon(s) and Role: [...] and S1 on the right side. A Cabell was placed caudal to the right L5 [...] Operative Note Patient Name: Yesi Estrella : [id number] MR#: [id number] Case Date: 09/14/2013 Surgeon: Surgeon(s) and Role: [...] IMPLANTABLE DEVICES SCAN 09/18/2013 9:19 AM EDT COPYRIGHT EXPERT SCAN 09/18/2013 9:19 AM EDT HEMOGRAM STAT [...] SCAN EXT O RDR/RSLT * SCAN DOC: COPYRIGHT EXPERT (09/18/2013 9:19 AM EDT) Anatomical Region Laterality [...] Lab Tawanda Diego MD HEMATOLOGY ORDERABLE S CERNER MILLENNIUM * (ABNORMAL) Hemogram (09/17/2013 9:35 AM EDT) [...] Lab Tawanda Diego MD HEMATOLOGY ORDERABLE S CERNER MILLENNIUM * Magnesium (09/17/2013 9:35 AM EDT) Magnesium 0.69 0.69 - 1.07 mmol/L CERNER MILLENNIUM Blood specimen (specimen) 09/17/2013 9:35 AM EDT 09/17/2013 9:46 AM EDT Narrative Resulting Agency Comment Spec In Lab Tawanda Diego MD CHEMISTRY ORDERABLES OSWALD BERTRANDIUM * (ABNORMAL) Basic Metabolic Panel (non-fasting) (09/17/2013 9:35 AM EDT) Glucose 209(H) 60 - 199 mg/dL CERNER MILLENNIUM Comment:Diabetes: >=200 mg/d L plus symptoms Blood Urea Nitrogen 11 8 - 18 mg/dL CERNER MILLENNIUM Creatinine 0.79 0.70 - 1.20 mg/dL CERNER MILLENNIUM Comment: Please note that the pediatric reference intervals supplied above were not validated at [facility]. Results from pediatric patients should [...] the following links into your internet browser. [email or web address] [email or web address] Blood specimen (specimen) 09/17/2013 9:35 AM EDT 09/17/2013 9:46 AM EDT Narrative Resulting Agency Comment Spec In Lab Tawanda Diego MD CHEMISTRY ORDERABLES Performing Organization Address [facility] de Phone Number LendAmend * POCT Glucose (09/17/2013 7:36 AM EDT) Pathologist [facility] Glucose, POC 126 60 - 199 mg/dL [facility] TrackR Comment: Supplemental ranges: <110 mg/dL before meals <200 mg/dL all other times of the day Blood specimen (specimen) 09/17/2013 7:36 AM EDT 09/17/2013 7:36 AM EDT Tawanda Diego MD POINT OF CARE TEST O RDERABLES Performing Organization Address [facility] de Phone Number LendAmend * EKG 12 Lead (09/16/2013 11:51 PM EDT) Ventricular rate 160 BPM MUSE SYSTEM Atrial Rate 163 BPM MUSE SYSTEM QRS Duration 122 ms MUSE SYSTEM Q-T Interval 250 ms MUSE SYSTEM QTC Calculated (Bezet) 407 ms MUSE SYSTEM Calculated R [place] 55 degrees MUSE SYSTEM Calculated T [place] -41 degrees MUSE SYSTEM INTERPRETATION Atrial fibrillation [...] MONTEIRO ARMIN (98) on 09/17/2013 7:05:44 PM MUSE SYSTEM 09/16/2013 11:5 1 PM EDT 09/17/2013 7:05 PM EDT Tawanda Diego MD ECG ORDERABLES MUSE SYSTEM * (ABNORMAL) Differential, Automated (09/15/2013 [...] Lab Tawanda Diego MD HEMATOLOGY ORDERABLE S CERLUDIVINA SAMSONENNIUM * (ABNORMAL) Hemogram (09/15/2013 6:01 AM EDT) [...] Lab Tawanda Diego MD HEMATOLOGY ORDERABLE S [facility] * (ABNORMAL) Basic Metabolic Panel (non-fasting) (09/15/2013 6:01 AM EDT) [facility] Glucose 120 60 - 199 mg/dL CERNER MILLENNIUM Comment:Diabetes: >=200 mg/d L plus symptoms Blood Urea Nitrogen 15 8 - 18 mg/dL CERNER MILLENNIUM Creatinine 0.77 0.70 - 1.20 mg/dL CERNER MILLENNIUM Comment: Please note that the pediatric reference intervals supplied above were not validated at [facility]. Results from pediatric patients should [...] the following links into your internet browser. [email or web address] [email or web address] Blood specimen (specimen) 09/15/2013 6:01 AM EDT 09/15/2013 6:14 AM EDT Narrative Resulting Agency Comment Spec In Lab Tawanda Diego MD CHEMISTRY ORDERABLES Performing Organization Address [facility] Co de Phone Number OSWALD JACKMAN * POCT Glucose (09/14/2013 7:26 PM EDT) [facility] Glucose, POC 142 60 - 199 mg/dL CERNER MILLENNIUM Comment: Supplemental ranges: <110 mg/dL before meals <200 mg/dL all other times of the day Blood specimen (specimen) 09/14/2013 7:26 PM EDT 09/14/2013 7:26 PM EDT Tawanda Diego MD POINT OF CARE TEST O RDERABLES Performing Organization Address [facility] Co de Phone Number OSWALD JACKMAN [...] Glucose, POC 91 60 - 199 mg/dL OSWALD JACKMAN Comment: Supplemental ranges: <110 mg/dL before meals <200 mg/dL all other times of the day Blood specimen (specimen) 09/14/2013 12:14 PM EDT 09/14/2013 12:14 PM EDT Tawanda Diego MD POINT OF CARE TEST O RDERABLES [facility] documented in this encounter Visit Diagnoses Diagnosis S/P Revision Right L4-S1 decompression, Right L4-5 diskectomy - 09/14/13 (Evonne)- Primary Personal history of surgery to other organs Right lumbar radiculopathy Thoracic or lumbosacral neuritis or radiculitis, unspecified Chronic low back pain Lumbago S/P Revision Right L4-S1 decompression, Right L4-5 diskectomy - 09/14/13 (Evonne) Personal history of surgery to other organs Atrial fibrillation with RVR Atrial fibrillation Atrial fibrillation with RVR Atrial fibrillation documented in this encounter Administered Medications Inactive Administered Medications - up to 3 most recent administrations Medication Order MAR Action Action Date Dose Rate Site acetaminophen (TYLENOL) tablet 1,000 mg 1,000 mg, Oral, EVERY 8 HOURS SCHEDULED, First dose on Fri09/14/13 at 1745, Until Discontinued, Maximum dose of acetaminophen is 4000 mg from all sources in 24 hours., Recovery (Recovery-Hospital Unit), Routine Given 09/17/2013 10:19 AM EDT 1,000 mg Given 09/17/2013 2:00 AM EDT 1,000 mg Given 09/16/2013 5:25 PM EDT 1,000 mg amitriptyline (ELAVIL) tablet 25 mg 25 mg, Oral, NIGHTLY, First dose on Fri09/14/13 at 2315, Until Discontinued, Recovery (Recovery-Hospital Unit), Routine Given 09/16/2013 8:54 PM EDT 25 mg Given 09/15/2013 9:07 PM EDT 25 mg atenolol (TENORMIN) tablet 50 mg 50 mg, Oral, DAILY, First dose (after last modification) on Fri09/17/13 at 0000, Until Discontinued, Recovery (Recovery-Hospital Unit), STAT Given 09/16/2013 11:49 PM EDT 50 mg ceFAZolin (ANCEF) 1g in dextrose 5% 50mL 1,000 mg (1 g), Intravenous, EVERY 8 HOURS, 3 doses, First dose on Fri09/14/13 at 1745, Last dose on Fri09/15/13 at 0945, Administer over 30 Minutes, For 3 doses postoperatively. Adjust to 8 hours from intraoperative dose., Recovery (Recovery-Hospital Unit), Indication for (Active or Suspected): Prophylaxis New Bag 09/15/2013 8:53 AM EDT 1,000 mg 100 mL/ hr New Bag 09/15/2013 1:18 AM EDT 1,000 mg 100 mL/hr New Bag 09/14/2013 10:24 PM EDT 1,000 mg 100 mL/hr esomeprazole (NEXIUM) capsule 40 mg 40 mg, Oral, DAILY, First dose on Fri09/15/13 at 0900, Until Discontinued, Recovery (Recovery-Hospital Unit), Routine Given 09/17/2013 8:50 AM EDT 40 mg Given 09/16/2013 8:32 AM EDT 40 mg Given 09/15/2013 8:12 AM EDT 40 mg HYDROmorphone (DILAUDID) 0.2 mg/mL 10mL Syringe 0.2-0.4 mg, Intravenous, EVERY 5 MIN PRN, Pain, Starting on Fri09/14/13 at 1647, Until Fri09/14/13 at 2031, For moderate pain give: 0.2 mg every 5 minute prn For severe pain give: 0.4 mg every 5 minutes prn Maximum dose: 4 mg per hour Hold for respiratory rate less than 10 per minute., PACU Recovery Given 09/14/2013 5:59 PM EDT 0.4 mg Given 09/14/2013 5:46 PM EDT 0.4 mg Given 09/14/2013 5:34 PM EDT 0.2 mg HYDROmorphone (DILAUDID) 1 mg/mL HUNTER GUIDE 30 mL Intravenous, HUNTER GUIDE ONLY, Starting on Fri09/14/13 at 1745, Until Fri09/15/13 at 1425, Recovery (Recovery-Hospital Unit) Rate/Dose Verify 09/14/2013 7:15 PM E DT New Syringe/Cartridge 09/14/2013 6:24 PM EDT 30 mg HYDROmorphone (DILAUDID) 30 mg/30 mL infusion 1 dose, Starting on Fri09/14/13 at 1719, Until Fri09/14/13 at 1824, CARMEN HUYNHR: cabinet override HYDROmorphone (DILAUDID) injection 0.4 mg 0.4 mg, Intravenous, ONCE, 1 dose, On Fri09/15/13 at 1915, Routine Given 09/15/2013 7:39 PM EDT 0.4 mg HYDROmorphone (DILAUDID) tablet 2-6 mg 2-6 mg, Oral, EVERY 4 HOURS PRN, Starting on Fri09/15/13 at 1426, Until Ghislaine 09/16/13 at 0333, Pain, Routine Given 09/15/2013 11:42 PM EDT 6 mg Given 09/15/2013 5:51 PM EDT 6 mg Given 09/15/2013 2:39 PM EDT 6 mg HYDROmorphone (DILAUDID) tablet 2-6 mg 2-6 mg, Oral, EVERY 3 HOURS PRN, Starting on Fri09/16/13 at 0345, Until Fri09/17/13 at 1708, Pain, Routine Given 09/17/2013 3:02 PM EDT 4 mg Given 09/17/2013 1:09 PM EDT 2 mg Given 09/17/2013 6:00 AM EDT 6 mg ketorolac (TORADOL) injection 15 mg 15 mg, Intravenous, EVERY 6 HOURS SCHEDULED, 2 doses, First dose on Fri09/14/13 at 1745, Last dose on Fri09/15/13 at 0000, Recovery (Recovery-Hospital Unit), Routine Given 09/15/2013 1:18 AM EDT 15 mg lactated ringers 500 mL IV bolus Intravenous, ONCE, 1 dose, On Fri09/17/13 at 0245 Given 09/17/2013 2:27 AM EDT lactated ringers infusion 1,000 mL 1,000 mL, at 100 mL/hr, Intravenous, CONTINUOUS, Starting on Fri09/14/13 at 1245, Until Fri09/14/13 at 1720, Day of Surgery (Day of Procedure) New Bag 09/14/2013 2:50 PM EDT mL New Bag 09/14/2013 12:28 PM EDT 1,000 mLs 100 mL/hr lactated ringers infusion 1,000 mL 1,000 mL, at 100 mL/hr, Intravenous, CONTINUOUS, Starting on Fri09/14/13 at 1715, Until Fri09/14/13 at 2031, PACU Recovery Rate/Dose Verify 09/14/2013 7:15 PM EDT 1,000 mLs 100 mL/hr New Bag 09/14/2013 7:00 PM EDT 1,000 mLs 100 mL/hr Restarted 09/14/2013 6:06 PM EDT 1,000 mLs 100 mL/hr lactated ringers infusion 1,000 mL 1,000 mL, at 100 mL/hr, Intravenous, CONTINUOUS, Starting on Fri09/14/13 at 1745, Until Fri09/17/13 at 1708, Recovery (Recovery-Hospital Unit) New Bag 09/17/2013 6:02 AM EDT 1,000 mLs 100 mL/hr New Bag 09/16/2013 6:57 AM EDT 1,000 mLs 100 mL/hr New Bag 09/15/2013 9:47 PM EDT 1,000 mLs 100 mL/hr metFORMIN (GLUCOPHAGE) tablet 500 mg 500 mg, Oral, DAILY, First dose on Fri09/15/13 at 0900, Until Discontinued, Recovery (Recovery-Hospital Unit), Routine Given 09/17/2013 8:49 AM EDT 500 mg Given 09/16/2013 8:32 AM EDT 500 mg Given 09/15/2013 8:12 AM EDT 500 mg multivitamin Vmrb-Ae-KE-Min (THERAPEUTIC-M) 27-0.4 mg tablet 1 tablet 1 tablet, Oral, DAILY, First dose on Fri09/15/13 at 0900, Until Discontinued, Recovery (Recovery-Hospital Unit) Given 09/17/2013 8:49 AM EDT 1 tablet Given 09/16/2013 8:33 AM EDT 1 tablet Given 09/15/2013 8:12 AM EDT 1 tablet ondansetron (ZOFRAN) injection 4 mg 4 mg, Intravenous, EVERY 8 HOURS PRN, Starting on Fri09/14/13 at 2255, Until Fri09/17/13 at 1708, Nausea, Recovery (Recovery-Hospital Unit) Given 09/15/2013 5 :32 PM EDT 4 mg Given 09/15/2013 8:22 AM EDT 4 mg ondansetron (ZOFRAN) injection 4 mg 4 mg, Intravenous, EVERY 30 MIN PRN, 2 doses, Starting on Fri09/14/13 at 2255, Until Fri09/14/13 at 2344, Nausea, May repeat dose once in 30 minutes if no relief from previous dose., Recovery (Recovery-Hospital Unit) Given 09/14/2013 11:44 PM EDT 4 mg Given 09/14/2013 11:02 PM EDT 4 mg oxyCODONE (oxyCONTIN) CR tablet 10 mg 10 mg, Oral, EVERY 12 HOURS SCHEDULED (2 times per day), First dose on Fri09/16/13 at 1230, Until Discontinued Given 09/17/2013 8:55 AM EDT 10 mg Given 09/16/2013 8:53 PM EDT 10 mg Given 09/16/2013 11:59 AM EDT 10 mg oxyCODONE (ROXICODONE) immediate release tablet 10 mg 10 mg, Oral, EVERY 4 HOURS PRN, Starting on Fri09/14/13 at 1720, Until Fri09/15/13 at 1425, Pain, moderate pain, For Moderate pain. Do not exceed 15 mg in 4 hours. If pain not relieved, call provider., Recovery (Recovery-Hospital Unit), Routine Given 09/15/2013 11:58 AM EDT 10 mg Given 09/14/2013 6:02 PM EDT 10 mg polyethylene glycol (MIRALAX) packet 17 g 17 g, Oral, 2 TIMES DAILY, First dose on Fri09/14/13 at 2315, Until Discontinued, Administer if needed per patient's routine or if no bowel movement within 48 hours, Recovery (Recovery-Hospital Unit), Routine Given 09/17/2013 8:49 AM EDT 17 g Given 09/16/2013 8:53 PM EDT 17 g Given 09/16/2013 8:33 AM EDT 17 g senna-docusate (PERICOLACE) 8.6-50 mg per tablet 1-4 tablet 1-4 tablet, Oral, 2 TIMES DAILY, First dose on Fri09/14/13 at 2315, Until Discontinued, Start with 1 tablet or liquid equivalent orally twice daily and titrate up to achieve: 1. One bowel movement at least every 48 hours, AND 2. Without straining, Recovery (Recovery-Hospital Unit), Routine Given 09/17/2013 8:54 AM EDT 2 tablets Given 09/16/2013 8:53 PM EDT 2 tablets Given 09/16/2013 8:33 AM EDT 2 tablets sodium chloride 0.9 % flush 5 mL 5 mL, Intravenous, 2 TIMES DAILY, First dose on Fri09/14/13 at 2315, Until Discontinued, Recovery (Recovery-Hospital Unit), Routine Given 09/17/2013 8:50 AM EDT 5 mLs Given 09/16/2013 9:05 PM EDT 5 mLs [...] Pito Liu RN)1019 (Given - Provider: Chantell Hollins, RAFA) amitriptyline (ELAVIL) tablet 25 mg (CANCELED) 25 [...] 0850 (Given - Provider: Chantell Hollins, RAFA) HYDROmorphone (DILAUDID) injection 0.4 mg (COMPLETED) 0.4 [...] (Given - Provider: Chantell Hollins, RAFA) multivitamin Wdyi-Sk-CP-Min (THERAPEUTIC-M) 27-0.4 mg tablet 1 tablet (CANCELED) [...] 0855 (Given - Provider: Chantell Hollins, RAFA) polyethylene glycol (MIRALAX) packet 17 g 17 g, Oral, 2 TIMES DAILY, First dose on Fri09/14/13 at 2315, Until Discontinued, Administer if needed per patient's routine or if no bowel movement within 48 hours, Recovery (Recovery-Hospital Unit), Routine 0811 (Given - Provider: Charo Mallory RN)2107 (Given - Provider: Pito Liu RN) 0833 [...] 2. Without straining, Recovery (Recovery-Hospital Unit), Routine 0811 (Given - Provider: Charo Mallory RN)2107 (Given - Provider: Pito Liu RN) 0833 (Given - Provider: Charo Mallory, RAFA)2053 (Given - Provider: Pito Liu RN) 0854 [...] Pain, Routine 1439 (Given - Provider: Charo Mallory RN)1751 (Given - Provider: Charo Mallory RN)2342 (Given - Provider: Pito Liu RN) HYDROmorphone (DILAUDID) tablet 2-6 mg 2-6 mg, Oral, EVERY 3 HOURS PRN, Starting on Fri09/16/13 at 0345, Until Fri09/17/13 at 1708, Pain, Routine 0350 (Given - Provider: Pito Liu RN)0640 (Given - Provider: Pito Liu RN)1028 (Given - Provider: Charo Mallory RN)1044 (MAR Hold - Provider: Admin Adt - Reason: Transfer to a Procedural area)1047 (MAR Unhold - Provider: Admin Adt)1602 (Given - Provider: Charo Mallory RN)2349 (Given - Provider: Pito Liu RN) 0305 (Given - Provider: Pito Liu RN)0600 (Given - Provider: Pito Liu RN)1309 (Given - Provider: Chantell Hollins RN)1502 (Given - Provider: Chantell Hollins RN - Comment: pt request before discharge) ondansetron (ZOFRAN) injection 4 mg (CANCELED) 4 mg, Intravenous, EVERY 8 HOURS PRN, Starting on Fri09/14/13 at 2255, Until Fri09/17/13 at 1708, Nausea, Recovery (Recovery-Hospital Unit) 0822 (Given - Provider: Charo Mallory RN)1732 (Given - Provider: Charo Mallory RN) oxyCODONE (ROXICODONE) immediate release tablet 10 mg [...] Routine documented in this encounter Care Teams Epidemiology Internship Relationship Specialty Start Date End Date Malinda Mcmillan MD [address] [place] [id number] PCP - General 02/20/10 documented as of this encounter
--- OUTSIDE RECORDS SUMMARY | 2024-04-12 14:09 | XMS_ITS | Encounter Summary ---
[place] [address] Care Team Providers Care Drying Room Supervisor Name Role Phone Patricio Gabriel MD Primary Care Provider Reason for Visit * Reason Onset Date Comments Medication Refill 09/21/2013 Hydromorphone 2 mg tabs. Encounter Details Date Type Department Care Team (Late st Contact Info) Description 09/21/2013 Refill [place] [id number] Jerry Seals RN Social History Tobacco Use [...] She has been able to decrease to 2 tabs per dose, discussed spreading time between doses to 4-6 hours. Refill will need to be mailed to her local pharmacy, will connect with PCP office to discuss interim supply to cover while refill is mailed. Refill request discussed with Dr. Estes in Dr. Douglass's absence, he authorized refill for Hydromorphone 2 mg tabs, 1-2 tabs Q 4-6 hours as needed, #90. Contacted PCP's office, spoke with nurse requesting interim 3 supply to cover while awaiting mailedprescription., Dr. Gabriel is away but she will review with a covering provider. Patient contacted, spoke with patient's , he was informed that refill was completed, discussed dose and frequency and that prescriptions is being mailed to [id number] in [place], [place] as requested. He reports that patient has heard from PCP's office regarding the interim supply. documented in this encounter Plan of Treatment Not on file documented as of this encounter Visit Diagnoses Not on filedocumented in this encounter Care Teams Drying Room Supervisor Relationship Specialty Start Date End Date Patricio Gabriel MD [address] [place] [address] PCP - General 02/20/10 documented as of this encounter
--- OUTSIDE RECORDS SUMMARY | 2024-04-12 14:09 | XMS_ITS | Encounter Summary ---
[place] [address] Care Team Providers Care Service Desk Team Lead Name Role Phone Patricio Gabriel MD Primary Care Provider [phone] Encounter Details Date Type Department Care Team (Late st Contact Info) Description 07/21/2013 Telephone [place] [address] Lakhwinder Rudd Social History Tobacco [...] on filedocumented in this encounter Care Teams Service Desk Team Lead Relationship Specialty Start Date End Date Patricio Gabriel MD [address] [place] [phone] PCP - General 02/20/10 documented as of this encounter
--- OUTSIDE RECORDS SUMMARY | 2024-04-12 14:09 | XMS_ITS | Encounter Summary ---
Author Organization [facility] [place] [address] Care Team Providers Care Loan Services Professional Name Role Phone Patricio Gabriel MD Primary Care Provider [phone] Encounter Details Date Type Department Care Team (Late st Contact Info) Description 04/12/2004 [place] [address] Jorge Lu MD NEUROSURGERY Social History Tobacco Use Types Packs/Day Years Used Date Smoking Tobacco: Never Assessed Sex and Gender Information Value Date Recorded Sex Assigned at Not on file Gender Identity Not on file Sexual Orientation Not on file documented as of this encounter Plan of Treatment Not on file documented as of this encounter Procedures Procedure Name Priority Date/Time Associated Diagnosis Comments SURGICAL PATHOLOGY REPORT Routine 04/12/2004 1:34 PM EST documented in this encounter Results * Surgical Pathology Report (04/12/2004 1:34 PM EST) Surgical Pathology Report [id number] ? Location: [facility]; [facility]; A The signing pathologist has (i) examined the relevant preparation(s) for the specimen(s) and (ii) rendered or confirmed the diagnosis(es). . ?Pathology Surgical Pathology Final Report Clinical Information Specimen Submitted: A - Disc L3-L4 Clinical History: Left L3-4 intraforaminal discs and L4-5 foraminal stenosis Gross Description Labeled/Fixative: ? Labeled with the patient's name, medical record ?number and disc L3-L4; saline. Quantity/Size: ?Multiple, 4 x 3 x 1 cm. Tissue Description: ?? Dense, north-white, friable fragments. Sections/Processi ng: ??No sections are submitted. ??aje/SNS Diagnosis Intervertebral disc, L3-L4. ?? Gross surgical pathology examination. CR-0 04/13/04 AJE 04/13/04 Verified by: ? Hayden Palmer MD, PhD ?Pathologist ?(Electronic Signature) The attending pathologist whose signature appears on this report has reviewed all diagnostic slides and has edited the gross and/or microscopic portion of the report in rendering the final pathologic diagnosis. OSWALD JACKMAN 04/12/2004 1:34 PM EST Jorge Lu MD PATHOLOGY/CYTOLOGY O RDERABLES Performing Organization Address City/State/[facility] Co de Phone Number OSWALD JACKMAN documented in this encounter Visit Diagnoses Not on filedocumented in this encounter Care Teams Loan Services Professional Relationship Specialty Start Date End Date Patricio Gabriel MD [address] [place] [id number] PCP - General 02/20/10 documented as of this encounter
--- OUTSIDE RECORDS SUMMARY | 2024-04-12 14:09 | XMS_ITS | Clinical Summary ---
Author Organization [facility] Address [address] [place] [address] Care Team Providers Care Housekeeper Name Role Phone Patricio Gabriel MD Primary Care Provider [phone] Social History Tobacco Use Types Packs/Day Years Used Date Smoking Tobacco: Never Assessed Interpersonal Safety Answer Date Record ed Physically Hurt Never 10/31/2019 Verbally Threaten Not on file 10/31/2019 Comments Unknown Sex and Gender Information Value Date Recorded Sex Assigned at Not on file Legal Sex Female 18:03 EST Gender Identity Not on file Sexual Orientation Not on file Plan of Treatment Health Maintenance Due Date Last Done Comments Fall Risk Screening 2015 COVID-19 Vaccine ( season) 2023 RSV Immunization ( o r 60+ Years) (1 - 1-dose 75+ series) 2025 Hepatitis C Screen Completed 06/19/2022 Procedures Procedure Name Priority Date/Time Associated Diagnosis Comments HEPATITIS C AB W REFLEX TO HCV RNA BY PCR Routine 06/19/2022 10:50 EDT from Last 3 Months or Most Recently Relevant to Health Maintenance Results * HEPATITIS C AB W REFLEX TO HCV RNA BY PCR (06/19/2022 10:50 EDT) Hep C Antibody Negative Negative 06/21/2022 9:30 EDT [facility] Blood VENOUS BLOOD / Unknown 06/19/2022 10:50 EDT 06/20/2022 17:51 EDT us Provider Outr Resulting Lab CHEMISTRY & BLOOD GA S ORDERABLES Final Result [facility] [address] [place] [address] from Last 3 Months or Most Recently Relevant to Health Maintenance Insurance [facility] [employer] [place]ICARE [place] Care Teams Housekeeper Relationship Specialty Start Date End Date Patricio Gabriel MD [address] [place] [address] PCP - General 02/01/09
--- OUTSIDE RECORDS SUMMARY | 2024-04-12 14:09 | XMS_ITS | Encounter Summary ---
Author Organization [facility] [place] [address] Care Team Providers Care Document Manager Name Role Phone Patricio Gabriel MD Primary Care Provider [phone] Encounter Details Date Type Department Care Team (Late st Contact Info) Description 05/16/2013 Orders [place] [address] Raciel Sharma PA Social History Tobacco Use Types Packs/Day Years [...] Diagnosis Comments FILM LIBRARY STORAGE ONLY DX SPINE Routine 05/16/2013 10:24 AM EST documented in this encounter Results * Film Library- Storage only DX Spine (05/16/2013 10:24 AM EST) Anatomical Region Laterality Modality Other 05/16/2013 10:2 4 AM EST Narrative 07/16/2013 10:29 AM EDT This is a Non-reportable exam Procedure Note 07/16/2013 This is a Non-reportable exam Raciel SCHNEIDER FILM LIBRARY ORD ERABLES documented in this encounter Visit Diagnoses Not on filedocumented in this encounter Care Teams Document Manager Relationship Specialty Start Date End Date Patricio Gabriel MD [address] [address] PCP - General 02/20/10 documented as of this encounter
--- OUTSIDE RECORDS SUMMARY | 2024-04-12 14:09 | XMS_ITS | Encounter Summary ---
[place] [address] Care Team Providers Care Emergency Response Officer Name Role Phone Patricio Gabriel MD Primary Care Provider [phone] Reason for Referral * Surgical (Routine) - Closed Specialty Diagnoses / Procedures Referred By Contac t Referred To Contact Orthopaedic Surgery / Orthopaedics Diagnoses Lumbago Pain in limb Right lumbar radiculopathy Raciel Sharma PA [facility] [place] [place] [address] [facility] [place] [address] [place] [address] Referral ID Status Reason Start Date Expiration Date V isits Requested Visits Authorized [id number] Closed Consult, Test & Treat 07/23/2013 01/19/2014 3 3 Reason for Visit * Reason Comments Back Pain Encounter Details Date Type Department Care Team (Late st Contact Info) Description 07/23/2013 3:20 PM EDT [place] [address] Raciel Sharma PA Lumbago; Pain in limb; Right lumbar radiculopathy Discharge Disposition: Home Social History Tobacco Use Types Packs/Day Years Used Date Smoking Tobacco: Every Day Cigarettes Sex and Gender Information Value Date Recorded Sex Assigned at Not on file Gender Identity Not on file Sexual Orientation Not on file documented as of this encounter Last Filed Vital Signs Vital Sign Reading Time Taken Comments Blood Pressure 165/84 07/23/2013 3:10 PM EDT Pulse 58 07/23/2013 3:10 PM EDT Temperature - - Respiratory Rate - - Oxygen Saturation - - Inhaled Oxygen Concentration - - Weight 68 kg (150 lb) 07/23/2013 3:10 PM EDT Height 165.1 cm (5' 5) 07/23/2013 3:10 PM EDT Body Mass Index 24.96 07/23/2013 3:10 PM EDT documented in this encounter Progress Notes * Raciel Sharma PA - 07/23/2013 3:43 PM EDT SUBJECTIVE: Ms. Estrella is a 63-year-old female who has been status post laminectomy and diskectomy at L3-L4 and L4-L5 foraminotomy [place] [address] Lu and is following up in the spine center for chronic back pain and left leg pain with a more acute of right radicular pain symptoms. In quick review, she has had the chronic back and left leg pain symptoms since her prior surgery and the right leg symptoms have been acute since about the last year. Her symptoms seem to match mostly an L5 pattern radiating down the lateral aspect of the leg to the foot and ankle and on the previous exam demonstrated some EHL weakness on the right. I ordered an MRI of the lumbar spine and she is following up today to review the MRI. She continues to describe the right leg as her predominant pain issue. REVIEW OF SYSTEMS: Negative for any reported GI, , or constitutional symptoms. MEDICATIONS: Medications have been reviewed and updated on the system. ALLERGIES: ALLERGIES HAVE BEEN REVIEWED AND UPDATED ON THE SYSTEM. Problem List: Patient Active Problem List Diagnosis Code ??? Chronic leg pain 729.5, 338.29 ??? Chronic low back pain 724.2, 338.29 ??? Right lumbar radiculopathy with L4-L5 HNP 724.4 PMH: Past Medical History Diagnosis Date [...] ??? No narrative on file OBJECTIVE: This was a discussion-based visit and I did not repeat a physical exam on the patient. She is a reasonably healthy-appearing 63-year-old female who is alert and oriented x3. IMAGING: The patient does have an MRI of the lumbar spine, which does reveal post-surgical changes with left-sided hemilaminectomy at L3-L4. There does appear to be some residual enhancing material in the left lateral recess at the L3-L4 level. At L4-L5, there is a fairly large right paracentral disk extrusion, which causes severe right lateral recess stenosis, but also causes [id number] central canal stenosis. At L5-S1, there is a right paracentral disk protrusion also noted, which abuts the S1 nerve root in the lateral recess. The neuroforamen on the right all appeared to be patent, and the left neuroforamen as well. I reviewed the images with the patient. ASSESSMENT: Chronic low back pain and left leg pain with prior surgical changes, but with a more acute onset of right radicular pain symptoms from the disk herniation at L4-L5. PLAN: I have reviewed the images with the patient and discussed that I do believe that likely the L4-L5 disk is probably causing her pain symptoms, although I cannot rule out that the L5-S1 disk has any involvement either. I reviewed the option at this point as to whether to consider surgical plan or to go with nonsurgical treatment such as physical therapy and an epidural steroid injection. We had a thorough discussion about these options and she does not feel that she would like to proceed with therapy or injections with the longstanding symptoms and the fact that she has tried these before for her previous left leg symptoms without benefit. I did educate her this may be beneficial. I think, it is certainly reasonable with the disk finding to consider surgical consultation at this time. After our discussion and answering her questions, the plan is as followed: 1. I have referred the patient to the shared decision making office to get the disk herniation video. 2. I have referred the patient to one of the spine surgeons for surgical consultation on right lumbar radiculopathy with disk herniation at L4-L5. Approximately 15 minutes of this 20-minute visit was spent in reviewing her imaging, medical decision making and planning. documented in this encounter Plan of Treatment Scheduled Referrals Name Type Priority Associated Diagnoses Orde r Schedule Referral to Spine Center Outpatient Referral Routine Lumbago Pain in limb Right lumbar radiculopathy Ordered: 07/23/2013 documented as of this encounter Procedures Procedure Name Priority Date/Time Associated Diagnosis Comments CREATININE Routine 07/23/2013 9:56 AM EDT Lumbago Pain in limb documented in this encounter Results * Creatinine (07/23/2013 9:56 AM EDT) Creatinine 0.79 0.70 - 1.20 mg/dL OSWALD JACKMAN Comment: Please note that the pediatric reference intervals supplied above were not validated at [facility]. Results from pediatric patients should be interpreted in conjunction to the patient's age, height and muscle mass. Est Glomerular Filtration Rate >60 >=60 OSWALD JACKMAN Comment: This estimated GFR (eGFR) value was [...] In Lab Collin Sargent MD CHEMISTRY ORDERABLES [facility] documented in this encounter Visit Diagnoses Diagnosis Lumbago Pain in limb Right lumbar radiculopathy Thoracic or lumbosacral neuritis or radiculitis, unspecified documented in this encounter Care Teams Emergency Response Officer Relationship Specialty Start Date End Date Patricio Gabriel MD [address] [place] [address] PCP - General 02/20/10 documented as of this encounter
--- OUTSIDE RECORDS SUMMARY | 2024-04-12 14:09 | XMS_ITS | Encounter Summary ---
[place] [address] Care Team Providers Care Stock Driver Name Role Phone Patricio Gabriel MD Primary Care Provider Reason for Visit * Reason Comments Low Back Pain Encounter Details Date Type Department Care Team (Latest Contact Info) Description 07/20/2013 1:40 PM EDT Office [place] [address] Raciel Sharma PA Right lumbar radiculopathy (Primary Dx); Chronic low back pain; Chronic leg pain, left Discharge Disposition: Home Social History Tobacco Use [...] this encounter Patient Instructions * Patient Instructions* Nancy Leung LPN - 07/20/2013 2:24 PM EDT I would like you to sign up for myD-H, which will give you secure online access to your electronic medical record at [facility] and the ability to communicate with your health care team whenand where it???s most convenient for you. With [...] the instructions. Here is your activation code: [email or web address] Expires: 09/03/2013 2:24 PM Remember, myD-H is NOT for urgent needs! Always dial 911 for medical emergencies. documented in this encounter Progress Notes * Rcaiel Sharma PA - 07/20/2013 2:51 PM EDT [...] documented as of this encounter Results * MRI lumbar spine [...] in the context of the clinical situation. (Reference-Armandok et al, Spine 2001) Findings: (prevalence [...] in the context of the clinical situation. (Reference-Jarvik et al, [id number]) Findings: (prevalence in patients without low back pain), Diskdegeneration (decreased T2 signal, height loss, bulge) (91%), Disk T2-signal loss(83%), Disk height loss (56%), Disk bulge (64%), Disk protrusion (32%), Annular fissure (38%). Collin Sargent MD IMG MRI ORDERABLES documented in this encounter Visit Diagnoses Diagnosis Right lumbar radiculopathy- Primary Thoracic or lumbosacral neuritis or radiculitis, unspecified Chronic low back pain Lumbago Chronic leg pain, left Right lumbar radiculopathy Thoracic or lumbosacral neuritis or radiculitis, unspecified Chronic low back pain Lumbago Chronic leg pain, left documented in this encounter Care Teams Stock Driver Relationship Specialty Start Date End Date Patricio Gabriel MD [address] [place] [id number] PCP - General 02/20/10 documented as of this encounter
--- OUTSIDE RECORDS SUMMARY | 2024-04-12 14:09 | XMS_ITS | Encounter Summary ---
Author Organization [facility] Address [facility] [place] [address] Care Team Providers Care Heel Attacher Name Role Phone Patricio Gabriel MD Primary Care Provider Encounter Details Date Type Department Care Team (Latest Contact Info) Description 10/21/2013 12:42 PM EDT - 10/21/2013 11:59 PM EDT Hospital Encounter XRay at [address] [place] [address] Right lumbar radiculopathy with L4-L5 HNP Social [...] Refills Start Date End Date gabapentin (NEURONTIN) 300 mg capsule Take 1 capsule by mouth 3 times daily. Begin with 1 cap at HS X 3 days, then 1 cap Q AM and HS X 3 day, then 1 cap TID. 90 capsule 1 10/14/2013 acetaminophen (TYLENOL) 500 mg tablet Take 2 tablets by mouth every 8 hours. 30 tablet 1 09/17/2013 HYDROmorphone (DILAUDID) 2 mg tablet 1-2 tabs Q 8-12 hours hours as needed for pain. 60 tablet 0 10/21/2013 01/18/2016 atenolol (TENORMIN) 25 mg tablet Take 1 tablet by mouth daily. 30 tablet 0 09/17/2013 01/18/2016 aspirin 325 mg EC tablet Take 1 tablet by mouth daily. 30 tablet 0 09/17/2013 01/18/2016 metFORMIN (GLUCOPHAGE) 500 mg tablet Take 500 mg by mouth daily. 01/18/2016 lisinopril (PRINIVIL;ZESTRIL) 10 mg tablet 10 MG = 1 Tablet(s), PO, Once daily 05/25/2009 01/18/2016 documented as of this encounter Plan of Treatment Not on file documented as of this encounter Procedures Procedure Name Priority Date/Time Associated Diagnosis Comments XR LUMBAR SPINE 2 OR 3 VIEWS Routine 10/21/2013 1:07 PM EDT Right lumbar radiculopathy with L4-L5 [...] unspecified documented in this encounter Care Teams Heel Attacher Relationship Specialty Start Date End Date Patricio Gabriel MD [address] [place] [phone] PCP - General 02/20/10 documented as of this encounter
--- OUTSIDE RECORDS SUMMARY | 2024-04-12 14:09 | XMS_ITS | Referral Summary ---
Author Organization [facility] Address [address] [place] [address] Care Team Providers Care Animal Researcher Name Role Phone Patricio Gabriel MD Primary [...] Orientation Not on file Plan of Treatment Not on file Procedures Procedure Name Priority Date/Time Associated Diagnosis Comments HEPATITIS C AB W REFLEX TO HCV RNA BY PCR Routine 06/19/2022 10:50 EDT from Last 3 Months or Most Recently Relevant to Health Maintenance Results * HEPATITIS C AB W REFLEX TO HCV RNA BY PCR (06/19/2022 10:50 EDT) Hep C Antibody Negative Negative 06/21/2022 9:30 EDT [facility] Blood VENOUS BLOOD / Unknown 06/19/2022 10:50 EDT 06/20/2022 17:51 EDT us Provider Outr Resulting Lab CHEMISTRY & BLOOD GA S ORDERABLES Final Result [facility] [address] [place] [address] from Last 3 Months or Most Recently Relevant to Health Maintenance Insurance [facility] [employer]RO[employer] MEDICARE ACO [place] Care Teams Animal Researcher Relationship Specialty Start Date End Date Patricio Gabriel MD [address] [place] [phone] PCP - General 02/01/09
--- OUTSIDE RECORDS SUMMARY | 2024-04-12 14:09 | XMS_ITS | Encounter Summary ---
[place] [address] Care Team Providers Care Cosmetic Counselor Name Role Phone Patricio Gabriel MD Primary Care Provider Reason for Visit * Reason Onset Date Comments Medication Refill 10/04/2013 Encounter Details Date Type Department Care Team (Late st Contact Info) Description 10/04/2013 Ref[place] [id number] Majo Cobos, RN Social History Tobacco Use Types Packs/Day Years Used Date Smoking Tobacco: Former Cigarettes Q uit: 07/29/2013 Smokeless Tobacco: Never Sex and Gender Information Value Date Recorded Sex Assigned at Not on file Gender Identity Not on file Sexual Orientation Not on file documented as of this encounter Miscellaneous Notes * Telephone Encounter - Majo Cobos RN - 10/04/2013 11:56 AM EDT Reporting right buttock down posterior lat leg into foot. Constant to some degree, better with ambulation. S/p Revision right L5-S1 decompression; right L4-5 disc excision . Last script issued on 09/21; Reports having a 3- 3.5 day supply remaining of dilaudid which she is currently taking 2 every 3 hrs. Reviewed above with Dr Haines; Script as authorized by Dr haines for Dilaudid decreasing to maximum of 10 tablets for 5 days; then reducing further to max of 8 qd mailed to pt's preferred pharmacy.Explained that cannot control mailing time; that if script not received by time existing supply is depleted we would need to cancel script and have it reissued to someone in person. documented in this encounter Plan of Treatment Not on file documented as of this encounter Visit Diagnoses Not on filedocumented in this encounter Care Teams Cosmetic Counselor Relationship Specialty Start Date End Date Patricio Gabriel MD [address] [place] [phone] PCP - General 02/20/10 documented as of this encounter
--- OUTSIDE RECORDS SUMMARY | 2024-04-12 14:09 | XMS_ITS | Encounter Summary ---
Author Organization [facility] [place] [address] Care Team Providers Care Principal Examiner Name Role Phone Patricio Gabriel MD Primary Care Provider Reason for Visit * Reason Comments Follow-up Encounter Details Date Type Department Care Team (Late st Contact Info) Description 10/21/2013 1:40 PM EDT Office [place] [address] Tawanda Douglass MD [facility] [place] [address] S/P Revision Right L4-S1 decompression, Right L4-5 diskectomy - 09/14/13 ([place]) (Primary Dx) Discharge Disposition: Home Social History [...] documented in this encounter Progress Notes * Tawanda Douglass MD - 10/21/2013 2:02 PM EDT DATE OF SURGERY: 09/14/2013. SURGERY: L4-S1 revision hemilaminectomy and right L4-L5 diskectomy. INTERVAL HISTORY: Ms. Estrella returns today about four weeks out from [...] Personal history of surgery to other organs documented in this encounter Care Teams Principal Examiner Relationship Specialty Start Date End Date Patricio Gabriel MD [address] [address] PCP - General 02/20/10 documented as of this encounter
--- OUTSIDE RECORDS SUMMARY | 2024-04-12 14:09 | XMS_ITS | Encounter Summary ---
Author Organization [facility] Address [facility] [place] [address] Care Team Providers Care Concession Stand Attendant Name Role Phone Patricio Gabriel MD Primary Care Provider Encounter Details Date Type Department Care Team (Latest Contact Info) Description 07/20/2013 3:03 PM EDT - 07/20/2013 11:59 PM EDT Hospital Encounter XRay at [address] [place] [address] Right lumbar radiculopathy; Chronic low back pain; [...] Sig Dispensed Refills Start Date End Date traMADol (ULTRAM) 50 mg tablet Take 50 mg by mouth every 6 hours as needed. 09/17/2013 lisinopril (PRINIVIL;ZESTRIL) 10 mg tablet 10 MG = 1 Tablet(s), PO, Once daily 05/25/2009 01/18/2016 nitroGLYcerin (NITROLINGUAL) 0.4 mg/dose spray 1 spray every 5min x 3, Translingual, PRN 05/25/2009 07/23/2013 atenolol (TENORMIN) 50 mg tablet 05/24/2009 07/23/2013 AMITRIPTYLINE HCL (AMITRIPTYLINE ORAL) 05/24/2009 014 documented as of this encounter Plan of Treatment Not on file documented as of this encounter Procedures Procedure Name Priority Date/Time Associated Diagnosis Comments XR PELVIS AP AND HIP 2 VIEWS OF 1 HIP Routine 07/20/2013 3:16 PM EDT documented in this encounter Results * XR pelvis AP and hip 2 views of 1 hip (07/20/2013 3:16 PM EDT) Anatomical Region Laterality Modality Pelvis, Hip N/A Radiographic Montse ging 07/20/2013 3:16 PM EDT Narrative 07/20/2013 4:45 PM EDT Examination AP PELVIS AND 2 VIEWS ONE HIP/RIGHT Clinical History groin and leg pain. Comparison None Technique AP pelvis and AP and lateral views right hip. Findings Bone mineralization is subjectively normal. The right hip joint space is well maintained and symmetrical with the left. ??There is virtually no radiographic evidence of degenerative change. ??No evidence of fracture or an aggressive bony process. Impression Normal study. Procedure Note Brian Barry MD - 07/20/2013 Examination AP PELVIS AND 2 VIEWS ONE HIP/RIGHT Clinical History groin and leg pain. Comparison None Technique AP pelvis and AP and lateral views right hip. Findings Bone mineralization is subjectively normal. The right hip joint space iswell maintained and symmetrical with the left. There is virtually noradiographic evidence of degenerative change. No evidence of fracture or an aggressivebony process. Impression Normal study. Collin Sargent MD IMG DX ORDERABLES documented in this encounter Visit Diagnoses Diagnosis Right lumbar radiculopathy Thoracic or lumbosacral neuritis or radiculitis, unspecified Chronic low back pain Lumbago Chronic leg pain, left documented in this encounter Care Teams Concession Stand Attendant Relationship Specialty Start Date End Date Patricio Gabriel MD [address] [place] [id number] PCP - General 02/20/10 documented as of this encounter
--- OUTSIDE RECORDS SUMMARY | 2024-04-12 14:09 | XMS_ITS | Encounter Summary ---
Author Organization [facility] Address [facility] [place] [address] Care Team Providers Care Project Development Leader Name Role Phone Patricio Gabriel MD Primary Care Provider [phone] Encounter Details Date Type Department Care Team (Late st Contact Info) Description 09/14/2013 1:41 PM EDT Anesthesia Event [place] [id number] Tim Smallwood MD [facility] DR ANESTHESIOLOGY [place] [address] Felicity Oliveros PA Anesthesia Record Procedure Summary Procedure Name Responsible Anesthesiologist Anesthesia Start Time Anesthesia Stop Time EA ADD'L VERTEBRAL SEGMENT CERVICAL, THORACIC, LUMBAR (WRVU 3.47) (Right: Spine Lumbar) Tim Smallwood MD 09/14/13 1341 09/14/13 1721 Events Date Time Event Comment 09/14/2013 1327 1341 Start 1344 AN Verify 1344 An Start Data 1350 An Induction 1355 An Intubation 1402 Anesthesia Ready 1423 Skin Incision 1453 Break/Relief In KAMERON G VOJTK O, ORTHOTIST 1519 Break/Relief Out 1709 Extubation/LMA Out 1711 an stop data 1721 Stop Meds Name Total Midazolam 2 mg fentaNYL 100 mcg lidocaine IV 70 mg propofol 200 mg Rocuronium 50 mg PHENYLephrine 640 mcg ondansetron 4 mg dexAMETHasone 4 mg ceFAZolin (ANCEF) 2g in dextrose 5% 50 m L 2 g PHENYLephrine INF 2,250 mcg HYDROmorphone 0.4 mg ketorolac (Toradol) (15 mg/mL) injection 15 mg lactated ringers infusion 1,000 mL 0 mL * Agents Name O2 Air N2O Sevoflurane (et) * Blood No blood administrations on file. Lines, Drains, and Airways Type Details Placement Removal Incision 09/14/13; lumbar spi ne; midline; 11/26/21 (LDA cleanup utility RA#[id number]); 1715 (LDA cleanup utility RA#[id number]) 09/14/13 0000 by Scotty May RN 11/26/21 1715 by Devan Carrera Urethral Catheter 09/14/13; indwelling double lumen catheter; 100% silicone; 16; inserted at this facility; 1; 10; 10; none; drainage bag to dependent drainage; inserted and inflated with ease.; 09/15/13; 1006 09/14/13 0000 by Scotty May RN 09/15/13 1006 by Charo Mallory, RAFA (RETIRED) Peripheral IV Line - Single Lumen 09/14/13; 1227; metacarpal vein left (top of hand); asox-uzp-nhwosn catheter system; 20 gauge, 1 in length; Nancy Valdez RN; distraction, intradermal injection, tolerated well, appears comfortable; 1; metacarpal vein (top of hand), right; removed per policy/procedure; 09/16/13; 1055 09/14/13 1227 by Valerie Patel RN 09/16/13 1055 by Debbi Montse, RN (RETIRED) Peripheral IV Line - Single Lumen 09/14/13; 1401; metacarpal vein right (top of hand); 18 gauge; 09/17/13; 1531 09/14/13 1401 by Gilbert Sultana MD 09/17/13 1531 by Chantell Hollins RN ETT Mask Ventilation: Ea meaghan (1); ETT Type: Cuffed; Mac Blade: 3; Notes: Asleep, Pre-O2; Attempts: 1; Laryngoscopy Grade: 1; Secured at Teeth: 22 cm; Inserted by: Rd; Removal Date: 09/14/13; Removal Time: 17009/14/13 1426 by 09/14/13 1709 by Gilbert Sultana MD documented in this encounter Social History Tobacco Use Types Packs/Day Years Used Date Smoking Tobacco: Former Cigarettes Q uit: 07/29/2013 Smokeless Tobacco: Never Sex and Gender Information Value Date Recorded Sex Assigned at Not on file Gender Identity Not on file Sexual Orientation Not on file documented as of this encounter OR Notes * Anesthesia Postprocedure Evaluation - Gilbert Sultana - 09/14/2013 6:07 PM EDT Patient: Yesi Estrella Procedure(s) Performed: Procedure(s): ADD'L INTERSPACES CX., THORACIC, LUMBAR MODIFIER L4 MODIFIER L5 MODIFIER S1 LAMINOTOMY W\DECOMPRESSION, ONE LVL, LUMBAR ,RE-EXPL (INCLDNG PART. FACETECTOMY, FORAMINOTOMY &\OR DISCECTOMY) Actual Anesthetic: general Patient location: PACU Post-op pain: Adequate analgesia Post-op nausea: no nausea or vomiting Last Vitals: Filed Vitals: 09/14/13 1800 BP: Pulse: 82 Temp: Resp: Post-op cardiovascular and respiratory status: is stable Level of consciousness: awake, alert and oriented Complications: no apparent complications and tolerated the procedure well Fluid Status: normal * Anesthesia Preprocedure Evaluation - Gilbert Sultana - 08/12/2013 10:17 AM EDT Pre-Anesthesia Evaluation for: Yesi Estrella a 63 y.o. female. Procedure(s): LAMINECTOMY, FACETECTOMY & FORAMINOTOMY,LUMAR, ONE LEVEL ADD'L INTERSPACES CX., THORACIC, LUMBAR MODIFIER L4 MODIFIER L5 Patient Active Problem List Diagnosis ??? Thoracic or lumbosacral neuritis or radiculitis, unspecified ??? Chronic leg pain ??? Chronic low back pain ??? Right lumbar radiculopathy with L4-L5 HNP Past Medical History Diagnosis Date ??? High blood pressure ??? Angina pectoris Past Surgical History Procedure Date ??? Hysterectomy, total abdominal ??? Cholecystectomy ??? Lumbar laminectomy ??? Hernia repair History Substance Use Topics ??? Smoking status: Former Smoker -- 0.2 packs/day Quit date: 07/29/2013 ??? Smokeless tobacco: Never Used ??? Alcohol Use: Not on file History Drug Use Not on file Allergies Allergen Reactions ??? Meperidine Hcl Anaphylaxis ??? Prochlorperazine CIS - JITTERY Medications: MAR and/or home medications have been reviewed. Physical Exam: There were no vitals filed for this visit. There is no height or weight on file to calculate BMI. Airway Assessment: Mallampati: II TM distance: >3 FB Neck ROM: full Cardiovascular Assessment: cardiovascular exam normal Pulmonary Assessment: pulmonary exam normal Dental Assessment: [facility] Assessment: Patient is wearing No contact(s). IV access: Peripheral line Other exam findings: 08/11/13 ECG: Sinus bradycardia Possible Left atrial enlargement Right bundle branch block Abnormal ECG When compared with ECG of 25-MAY-2009 02:16, No significant change was found Anesthesia Plan: ASA 2 general, with a(n) intravenous induction 63 y/o 70kg female scheduled for R L4-S1 hemilaminectomy w/ L4-5 and L5-S1 diskectomies for R lumbar radiculopathy. History of chronic low back pain, HTN, angina which she reports was actually GERD. No CP or SOB with 4 mets. No current issues with GERD or passive reflux. Cardiac cath in 2009 - non-obstructive CAD, LVEF 70%, mild MR. EKG 07/2013 w/ RBBB (not new) Allergies to meperidine (anaphylaxis), compazine. Tolerated fentanyl and morphine during prior anesthetic in 2004. Airway: easy mask, grade 1 view w/ Mac 3 (2004). Plan: [facility] - Other Informed Consent: Anesthetic plan and risks discussed with patient and spouse. Use of blood products discussed with patient and spouse whom. Plan discussed with attending and resident. [facility]. Assessment: documented in this encounter Plan of Treatment Not on file documented as of this encounter Visit Diagnoses Not on filedocumented in this encounter Administered Medications Inactive Administered Medications - up to 3 most recent administrations Medication Order MAR Action Action Date Dose Rate Site ceFAZolin (ANCEF) 2g in dextrose 5% 50 mL 2 g, Intravenous, ONCE, 1 dose, On Fri09/14/13 at 1245, To be administered upon arrival to the OR within one hour prior to incision., Day of Surgery (Day of Procedure), Indication for (Active or Suspected): Prophylaxis Given 09/14/2013 2:21 PM EDT 2 g dexamethasone (DECADRON) injection PRN, Starting on Fri09/14/13 at 1415, Until Fri09/14/13 at 1721, Anesthesia Intra-op, Routine Given 09/14/2013 2:15 PM EDT 4 mg fentaNYL 50mcg/mL injection PRN, Starting on Fri09/14/13 at 1350, Until Fri09/14/13 at 1721, Pain, Anesthesia Intra-op, Routine Given 09/14/2013 1:54 PM EDT 50 mcg Given 09/14/2013 1:50 PM EDT 50 mcg HYDROmorphone (DILAUDID) injection PRN, Starting on Fri09/14/13 at 1624, Until Fri09/14/13 at 1721, Pain, Anesthesia Intra-op, Routine Given 09/14/2013 4:24 PM EDT 0.4 mg ketorolac (TORADOL) injection PRN, Starting on Fri09/14/13 at 1632, Until Fri09/14/13 at 1721, Pain, Anesthesia Intra-op, Routine Given 09/14/2013 4:32 PM EDT 15 mg lactated ringers infusion 1,000 mL 1,000 mL, at 100 mL/hr, Intravenous, CONTINUOUS, Starting on Fri09/14/13 at 1245, Until Fri09/14/13 at 1720, Day of Surgery (Day of Procedure) New Bag 09/14/2013 2:50 PM EDT mL New Bag 09/14/2013 12:28 PM EDT 1,000 mLs 100 mL/hr lidocaine (PF) (XYLOCAINE) 100 mg/5 mL (2 %) injection PRN, Starting on Fri09/14/13 at 1350, Until Fri09/14/13 at 1721, Anesthesia Intra-op, Routine Given 09/14/2013 1:50 PM EDT 70 mg midazolam (PF) (VERSED) 1 mg/mL injection PRN, Starting on Fri09/14/13 at 1341, Until Fri09/14/13 at 1721, Sleep, Anesthesia Intra-op, Routine Given 09/14/2013 1:41 PM EDT 2 mg ondansetron (ZOFRAN) injection PRN, Starting on Fri09/14/13 at 1637, Until Fri09/14/13 at 1721, Nausea, Anesthesia Intra-op, Routine Given 09/14/2013 4:37 PM EDT 4 mg PHENYLephrine (BRANDEN-SYNEPHRINE) 20 mg in sodium chloride 250 mL infusion CONTINUOUS PRN, Starting on Fri09/14/13 at 1459, Until Fri09/14/13 at 1721, Anesthesia Intra-op, Routine Rate/Dose Change 09/14/2013 3:45 PM EDT 20 mcg/min 15 mL/hr Rate/Dose Change 09/14/2013 3:15 PM EDT 15 mcg/min 11.3 mL /hr Rate/Dose Change 09/14/2013 3:05 PM EDT 30 mcg/min 22.5 mL /hr PHENYLephrine HCl in NS (PF) (BRANDEN-SYNEPHRINE) 0.8 mg/10 mL (80 mcg/mL) injection Syrg PRN, Starting on Fri09/14/13 at 1436, Until Fri09/14/13 at 1721, Anesthesia Intra-op, Routine Given 09/14/2013 4:29 PM EDT 160 mcg Given 09/14/2013 3:45 PM EDT 80 mcg Given 09/14/2013 2:55 PM EDT 160 mcg propofol (DIPRIVAN) 10 mg/mL bolus injection (Anesthesia) PRN, Starting on Fri09/14/13 at 1350, Until Fri09/14/13 at 1721, Anesthesia Intra-op Given 09/14/2013 1:54 PM EDT 50 mg Given 09/14/2013 1:50 PM EDT 150 mg rocuronium (ZEMURON) injection PRN, Starting on Fri09/14/13 at 1352, Until Fri09/14/13 at 1721, Anesthesia Intra-op, Routine Given 09/14/2013 1:52 PM EDT 50 mg documented in this encounter Care Teams Project Development Leader Relationship Specialty Start Date End Date Patricio Gabriel MD [address] [place] [address] PCP - General 02/20/10 documented as of this encounter
--- OUTSIDE RECORDS SUMMARY | 2024-04-12 14:09 | XMS_ITS | Encounter Summary ---
Author Organization [facility] Address [address] [place] [address] Care Team Providers Care Storage Receipt Poster Name Role Phone Patricio Gabriel MD Primary Care Provider [phone] Encounter Details Date Type Department Care Team (Late st Contact Info) Description 06/20/2022 Lab Requisition [facility] Pathology & Laboratory Medicine - [address] [address] Outr Resulting Lab, Provider Social History Tobacco [...] Procedure Name Priority Date/Time Associated Diagnosis Comments SPEP WITH IMMUNOTYPING PERFORMABLE Today 06/19/2022 10:50 EDT SPEP WITH IMMUNOTYPING Routine 06/19/2022 10:50 EDT C3 COMPLEMENT Routine 06/19/2022 10:50 EDT C4 COMPLEMENT Routine 06/19/2022 10:50 EDT ANTI NUCLEAR AB (ABDELRAHMAN), IFA Routine 06/19/2022 10:50 EDT PROTEIN, TOTAL Today 06/19/2022 10:50 EDT documented in this encounter Results * (ABNORMAL) SPEP WITH IMMUNOTYPING PERFORMABLE (06/19/2022 10:50 EDT) Albumin % 59.2 55.8 - 66.1 % 06/21/2022 14:38 [facility] Albumin g/dL 3.9 3.6 - 5.2 g/dL 06/21/2022 14:38 [facility] Alpha-1 % 3.8 2.9 - 4.9 % 06/21/2022 14:38 [facility] Alpha-1 g/dL 0.30 0.15 - 0.40 g/dL 06/21/2022 14:38 [facility] Alpha-2 % 11.8 7.1 - 11.8 % 06/21/2022 14:38 [facility] Alpha-2 g/dL 0.80 0.50 - 1.00 g/dL 06/21/2022 14:38 [facility] Beta % 14.5(H) 8.4 - 13.1 % 06/21/2022 14:38 [facility] Beta g/dL 1.00 0.60 - 1.20 g/dL 06/21/2022 14:38 [facility] Gamma % 10.7(L) 11.1 - 18.8 % 06/21/2022 14:38 [facility] Gamma g/dL 0.70 0.60 - 1.60 g/dL 06/21/2022 14:38 [facility] SPEP Comment No apparent monoclonal protein seen on serum electrophoresis 06/21/2022 14:38 [facility] Comment:See scanned/suppleme ntary report. Immunotyping , Serum Current Interpretation: Negative for monoclonal immunoglobulins. Reviewed by: Aurelio Hirsch MD, PhD 06/21/2022 14:08. 06/21/2022 14:38 [facility] Total Protein 6.6 6.3 - 8.2 g/dL 06/21/2022 14:38 EDT [facility] Blood VENOUS BLOOD / Unknown 06/19/2022 10:50 EDT 06/20/2022 17:51 EDT us Provider Outr Resulting Lab CHEMISTRY & BLOOD GA S ORDERABLES Final Result Performing Organization Address [facility] de Phone Number [facility] [address] [place] [address] * PROTEIN, TOTAL (06/19/2022 10:50 EDT) Blood VENOUS BLOOD / Unknown 06/19/2022 10:50 EDT 06/20/2022 17:51 EDT us Provider Outr Resulting Lab CHEMISTRY & BLOOD GA S ORDERABLES Final Result Performing Organization Address [facility] Co de Phone Number [facility] [address] [place] [address] * C3 COMPLEMENT (06/19/2022 10:50 EDT) C3 Complement 144 81 - 157 mg/dL 06/21/2022 9:28 EDT [facility] Blood VENOUS BLOOD / Unknown 06/19/2022 10:50 EDT 06/20/2022 17:51 EDT us Provider Outr Resulting Lab CHEMISTRY & BLOOD GA S ORDERABLES Final Result Performing Organization Address [facility] de Phone Number [facility] [address] [place] [address] * C4 COMPLEMENT (06/19/2022 10:50 EDT) C4 Complement 20 13 - 39 mg/dL 06/21/2022 9:28 EDT [facility] Blood VENOUS BLOOD / Unknown 06/19/2022 10:50 EDT 06/20/2022 17:51 EDT us Provider Outr Resulting Lab CHEMISTRY & BLOOD GA S ORDERABLES Final Result Performing Organization Address [facility]/ZIP Co de Phone Number [facility] [address] [place] [address] * ANTI NUCLEAR AB (ABDELRAHMAN), IFA (06/19/2022 10:50 EDT) ABDELRAHMAN Interpretation Negative Negative 2022 15:58 EDT [facility] Comment:No titer performed, ABDELRAHMAN Screen is negative. Blood VENOUS BLOOD / Unknown 06/19/2022 10:50 EDT 06/20/2022 17:51 EDT Narrative [facility] - 06/21/2022 15:58 EDT Results were obtained with the INOVA NOVA Lite HEp-2 ABDELRAHMAN Kit by indirect immunofluorescence. us Provider Outr Resulting Lab IMMUNOLOGY AND SEROL OGY ORDERABLES Final Result Performing Organization Address [facility] Co de Phone Number [facility] [address] [place] [address] documented in this encounter Visit Diagnoses Not on filedocumented in this encounter Care Teams Storage Receipt Poster Relationship Specialty Start Date End Date Patricio Gabriel MD [address] [place] [address] PCP - General 02/01/09 documented as of this encounter
--- OUTSIDE RECORDS SUMMARY | 2024-04-12 14:09 | XMS_ITS | Encounter Summary ---
[place] [address] Care Team Providers Care Account Consultant Name Role Phone Patricio Gabriel MD Primary Care Provider Reason for Referral * Physical Therapy (Routine) - Complete - Patient Seen (External Appt Consult Notes Rcv'd) Specialty Diagnoses / Procedures Referred By Contac t Referred To Contact Physical Therapy Diagnoses History of lumbar discectomy Tawanda Douglass MD [facility] [place] [address] Referral ID Status Reason Start Date Expiration Date Visits Requested Visits Authorized [id number] Complete - Patient Seen (External Appt Consult Notes Rcv'd) Evaluate and Treat 11/01/2013 04/30/2014 1 1 Reason for Visit * Reason Onset Date Comments Other 11/01/2013 requesting PT re ferral. Encounter Details Date Type Department Care Team (Late st Contact Info) Description 11/01/2013 Telephone [place] [address] Jerry Seals RN Other (requesting PT referral.) Social History Tobacco Use Types Packs/Day Years [...] have referral and op note faxed to [phone]. Above discussed with Dr. Douglass, PT referral completed and faxed with op note as patient requested. documented in this encounter Plan of Treatment Scheduled Referrals Name Type Priority Associated Diagnoses Orde r Schedule Referral to Physical Therapy Outpatient Referral Routine History of lumbar discectomy Ordered: 11/01/2013 documented as of this encounter Visit Diagnoses Diagnosis History of lumbar discectomy- Primary Personal history of surgery to other organs documented in this encounter Care Teams Account Consultant Relationship Specialty Start Date End Date Patricio Gabriel MD [address] [address] PCP - General 02/20/10 documented as of this encounter
--- OUTSIDE RECORDS SUMMARY | 2024-04-12 14:09 | XMS_ITS | Encounter Summary ---
Author Organization [facility] Address [facility] [place] [address] Care Team Providers Care Locomotive Mechanic Name Role Phone Patricio Gabriel MD Primary Care Provider Encounter Details Date Type Department Care Team (Latest Contact Info) Description 01/02/2016 - 01/02/2016 11:59 PM EDT Hospital Encounter Radiology Library at [facility] [place] [place] [id number] Tawanda Douglass MD [facility] [place] [address] Pain Discharge Disposition: Home Social History Tobacco [...] TIMES A DAY NEEDED 5 12/20/2015 05/10/2021 HYDROmorphone (DILAUDID) 2 mg tablet 1-2 tabs [...] FILM LIBRARY STORAGE ONLY MR SPINE Routine 01/02/2016 12:00 AM EDT Pain documented in this encounter Results * Film Library- Storage Only MR Spine (01/02/2016 12:00 AM EDT) Narrative [facility] - 01/09/2016 4:30 PM EDT This exam is for storage only and is auto-finalizing. Tawanda Douglass MD IMG FILM LIBRARY ORD ERABLES Performing Organization Address City/State/[facility] Co de Phone Number [place], [place] documented in this encounter Visit Diagnoses Diagnosis Pain Generalized pain documented in this encounter Care Teams Locomotive Mechanic Relationship Specialty Start Date End Date Patricio Gabriel MD [address] [place] [address] PCP - General 02/20/10 documented as of this encounter
--- OUTSIDE RECORDS SUMMARY | 2024-04-12 14:09 | XMS_ITS | Encounter Summary ---
Author Organization [facility] [place] [address] Care Team Providers Care Data Warehouse Specialist Name Role Phone Patricio Gabriel MD Primary Care Provider Reason for Referral * Consultation (Routine) - Closed Specialty Diagnoses / Procedures Referred By Contac t Referred To Contact Pain Management Diagnoses Right lumbar radiculopathy Tawanda Douglass MD [facility] [place] [address] [facility] [address] [place] [address] Referral ID Status Reason Start Date Expiration Date V isits Requested Visits Authorized [id number] Closed Consult Only 07/28/2013 01/24/2014 1 1 Reason for Visit * Reason Comments Back, Buttock, Leg Pain right Encounter Details Date Type Department Care Team (Latest Contact Info) Description 07/28/2013 1:35 PM EDT Office Visit [place] [id number] Tawanda Douglass MD [facility] [place] [address] Right lumbar radiculopathy with L4-L5 HNP (Primary Dx) Discharge Disposition: Home Social History Tobacco Use Types Packs/Day Years Used Date Smoking Tobacco: Every Day Cigarettes Smokeless Tobacco: Never Sex and Gender Information Value Date Recorded Sex Assigned at Not on file Gender Identity Not on file Sexual Orientation Not on file documented as of this encounter Progress Notes * Tawanda Douglass MD - 07/28/2013 3:04 PM [...] us. documented in this encounter H&P Notes * Provider, Gilberto - 08/25/2013 11:02 AM EDT documented in this encounter Plan of Treatment Scheduled Referrals Name Type Priority Associated Diagnoses Orde r Schedule Referral to Pain Clinic Outpatient Referral Routine Right lumbar radiculopathy with L4-L5 HNP Ordered: 07/28/2013 documented as of this encounter Visit Diagnoses Diagnosis Right lumbar radiculopathy with L4-L5 HNP- Primary Thoracic or lumbosacral neuritis or radiculitis, unspecified documented in this encounter Care Teams Data Warehouse Specialist Relationship Specialty Start Date End Date Patricio Gabriel MD [address] [place] [address] PCP - General 02/20/10 documented as of this encounter
--- OUTSIDE RECORDS SUMMARY | 2024-04-12 14:09 | XMS_ITS | Encounter Summary ---
Author Organization [facility] [place] [address] Care Team Providers Care Supervisor Bottle House Cleaners Name Role Phone Patricio Gabriel MD Primary Care Provider Reason for Referral * Consultation (Routine) - Closed Specialty Diagnoses / Procedures Referred By Contac t Referred To Contact Pain Management Diagnoses H/O lumbar discectomy Tawanda Douglass MD [facility] [address] [facility] [address] [place] [address] Referral ID Status Reason Start Date Expiration Date V isits Requested Visits Authorized [id number] Closed Consult Only 01/18/2016 01/17/2017 1 1 Reason for Visit * Reason Comments Low Back Pain * Consultation (Routine) - Closed Specialty Diagnoses / Procedures Referred By Contac t Referred To Contact Orthopaedics Diagnoses RLE pain and numbness Franky Mullen MD [address] [place] [address] Tawanda Douglass MD [facility] [address] Referral ID Status Reason Start Date Expiration Date V isits Requested Visits Authorized [id number] Closed Consult, [facility] 01/09/2016 01/08/2017 1 1 Encounter Details Date Type Department Care Team (Late st Contact Info) Description 01/18/2016 3:20 PM EDT Office [place] [address] Tawanda Douglass MD [facility] [place] [address] S/P Revision Right L4-S1 decompression, Right L4-5 diskectomy - 09/14/13 ([place]) Social History Tobacco Use Types Packs/Day Years [...] Progress Notes * Tawanda Douglass MD - 01/18/2016 3:20 PM [...] Referral to Pain Clinic Outpatient Referral Routine S/P Revision Right L4-S1 decompression, Right L4-5 diskectomy - 09/14/13 ([place]) Ordered: 01/18/2016 documented as of this encounter Visit Diagnoses Diagnosis S/P Revision Right L4-S1 decompression, Right L4-5 diskectomy - 09/14/13 ([place]onne) Personal history of surgery to other organs documented in this encounter Care Teams Supervisor Bottle House Cleaners Relationship Specialty Start Date End Date Patricio Gabriel MD [address] [place] [address] PCP - General 02/20/10 documented as of this encounter
--- OUTSIDE RECORDS SUMMARY | 2024-04-12 14:10 | XMS_ITS | Encounter Summary ---
Author Organization [facility] Address [address] [place] [address] Care Team Providers Care Hand I Cutter Name Role Phone Patricio Gabriel MD Primary Care Provider Encounter Details Date Type Department Care Team (Late st Contact Info) Description 06/24/2003 Results Only [facility] - Maple conversion [address] [place] [address] Elyssa Acosta MD [address] [place] [address] [address] [facility] [address] [place], [place] [id number] Social History Tobacco Use Types Packs/Day Years Used Date Smoking Tobacco: Never Assessed Comments Unknown Sex and Gender Information Value Date Recorded Sex Assigned at Not on file Legal Sex Female 18:03 EST Gender Identity Not on file Sexual Orientation Not on file documented as of this encounter Plan of Treatment Not on file documented as of this encounter Procedures Procedure Name Priority Date/Time Associated Diagnosis Comments CYTOPATHOLOGY Routine 06/24/2003 0:00 EST documented in this encounter Results * CYTOPATHOLOGY (06/24/2003 0:00 EST) Pathology Report: CYTOPATHOLOGY REPORT Reports generated via electronic interface contain original data; however they are lacking the format of the original report. Caution should be taken when reading/interpreti ng unformatted reports. Name: ? ERICK STOKES ? Accession #: ? [id number] : ? 1950 (Age: 53) ??F ?Collect Date: ? 06/24/2003 Location: ? [facility] ? Receive Date: ? 06/27/2003 Provider: ?ELYSSA ACOSTA MD Copy to: ? Specimen/Source: ?ThinPrep Pap Test, Cervix/Endocervix Last Menstrual Period: ? 2000 Hormonal/Contracep tive Status: ? Yes: Hormone use Other: ? HPVA - HPV testing requested if ASC-US on the current ThinPrep Pap test. ? SPECIMEN ADEQUACY ? Satisfactory for Evaluation - transformation zone component present GENERAL CATEGORIZATION ? Negative for Intraepithelial Lesion or Malignancy ? Document reviewed and electronically signed by: ? GENESIS Sandhu(ASCP) ? Report Date: ??06/30/2003 12:15 End of Report [facility] 06/24/2003 06/27/2003 us Elyssa Acosta MD PATHOLOGY ORDERABLES Final Resul t [facility] [address] [place] [address] documented in this encounter Visit Diagnoses Not on filedocumented in this encounter Care Teams Hand I Cutter Relationship Specialty Start Date End Date Patricio Gabriel MD [address] [place] [address] PCP - General 02/01/09 documented as of this encounter
--- OUTSIDE RECORDS SUMMARY | 2024-04-12 14:10 | XMS_ITS | Encounter Summary ---
Author Organization [facility] Address [address] [place] [address] Care Team Providers Care Black Powder Glazing Operator Name Role Phone Patricio Gabriel MD Primary Care Provider Encounter Details Date Type Department Care Team (Late st Contact Info) Description 11/12/1999 Results Only [facility] - Maple conversion [address] [place] [address] John Bird MD [address] [facility] [address] [place] [phone] Social History Tobacco Use Types Packs/Day Years [...] Priority Date/Time Associated Diagnosis Comments CYTOPATHOLOGY Routine 11/12/1999 0:00 EDT documented in this encounter Results * CYTOPATHOLOGY (11/12/1999 0:00 EDT) Pathology Report: CYTOPATHOLOGY REPORT Reports generated via electronic interface contain original data; however they are lacking the format of the original report. Caution should be taken when reading/interpreti ng unformatted reports. Name: ? ERICK STOKES ? Accession #: ? [id number] : ? 1950 (Age: 49) ??F ?Collect Date: ? 11/12/1999 Location: ? [facility] ? Receive Date: ? 11/13/1999 Provider: ?JOHN BIRD MD Copy to: ? Specimen/Source: ?Conventional Pap Test, Cervix/Endocervix Last Menstrual Period: ? 10/27/99 Hormonal/Contracep tive Status: ? Yes ? SPECIMEN ADEQUACY ? Satisfactory for evaluation. GENERAL CATEGORIZATION ? Within Normal Limits ? Document reviewed and electronically signed by: ? Puja Jose [facility](ASCP) ? Report Date: ??11/14/1999 14:38 End of Report [facility] 11/12/1999 11/13/1999 us John Bird MD PATHOLOGY ORDERABLES Final Resu lt [facility] [address] [place] [address] documented in this encounter Visit Diagnoses Not on filedocumented in this encounter Care Teams Black Powder Glazing Operator Relationship Specialty Start Date End Date Patricio Gabriel MD [address] [place] [address] PCP - General 02/01/09 documented as of this encounter
--- OUTSIDE RECORDS SUMMARY | 2024-04-12 14:10 | XMS_ITS | Encounter Summary ---
Author Organization [facility] Address [address] [place] [address] Care Team Providers Care Bell Ringer Name Role Phone Unavailable Primary Care Provider Unavailabl e Encounter Details Date Type Department Care Team (Late st Contact Info) Description 03/28/1999 17:05 EST Hospital Encounter [facility] Emergency Department - [facility] [address] [place] [address] Emergency, MD Bharathi Social History Tobacco Use Types Packs/Day Years [...] Priority Date/Time Associated Diagnosis Comments CREATININE Routine 03/28/1999 20:20 EST HEMAGRAM & DIFF Routine 03/28/1999 20:20 EST PTT Routine 03/28/1999 20:20 EST PROTIME Routine 03/28/1999 20:20 EST BUN Routine 03/28/1999 20:20 EST LIPASE Routine 03/28/1999 20:20 EST GLUCOSE, SERUM Routine 03/28/1999 20:20 EST AMYLASE Routine 03/28/1999 20:20 EST HEPATIC FUNCTION PANEL (ALB,ALK PHOS,ALT,AST,DBIL,TOT PAUL,TOT PROT) Routine 03/28/1999 20:20 EST ELECTROLYTES Routine 03/28/1999 20:20 EST documented in this encounter Results * (ABNORMAL) GLUCOSE, SERUM (03/28/1999 20:20 EST) Glucose, Serum 113(H) 70 - 110 mg/dl [facility] 03/28/1999 20:2 0 EST 03/28/1999 20:27 EST us Default Emergency MD CHEMISTRY & BLOOD GAS ORDER IZZY Final Result Performing Organization Address [facility] de Phone Number [facility] [address] [place] [address] * PTT (03/28/1999 20:20 EST) PTT 23 20 - 31 secs [facility] Comment:Therapeutic Heparin range: 58-100 seconds 03/28/1999 20:2 0 EST 03/28/1999 20:27 EST us Default Emergency HEMATOLOGY & PF4 ORDERABLES Final Result Performing Organization Address [facility] de Phone Number [facility] [address] [place] [address] * PROTIME (03/28/1999 20:20 EST) Pro Time 12.8 11.7 - 13.4 secs [facility] I.N.R. 1.0 0.8 - 1.2 Ratio [facility] Comment: Moderate Intensity Coumadin INR = 2.0-3.0 Adjustments in anticoagulant therapy dose should be based upon the INR and NOT the Pro Time 03/28/1999 20:2 0 EST 03/28/1999 20:27 EST us Default Emergency MD HEMATOLOGY & PF4 ORDERABLES Final Result Performing Organization Address City/[facility] de Phone Number [facility] [address] [place] [address] * ELECTROLYTES (03/28/1999 20:20 EST) Sodium 143 136 - 145 mEq/L [facility] Potassium 3.7 3.5 - 5.0 mEq/L [facility] Chloride 103 96 - 110 mEq/L [facility] CO2 29 24 - 30 mEq/L [facility] 03/28/1999 20:2 0 EST 03/28/1999 20:27 EST us Default Emergency MD CHEMISTRY & BLOOD GAS ORDER IZZY Final Result Performing Organization Address [facility] Phone Number [facility] [address] [place] [address] * LIVER FUNCTION TESTS (03/28/1999 20:20 EST) Albumin 4.1 3.0 - 5.5 g/dl [facility] Total Alkaline Phosphatase 70 38 - 126 U/L [facility] ALT 36 15 - 75 U/L [facility] AST 27 8 - 50 U/L [facility] Unconjugated Bilirubin 0.4 0.1 - 1.1 mg/dl [facility] Conjugated Bilirubin 0.0 0.0 - 0.3 mg/dl [facility] Bilirubin, Total 0.9 0.2 - 1.3 mg/dl [facility] 03/28/1999 20:2 0 EST 03/28/1999 20:27 EST Default Emergency MD CHEMISTRY & BLOOD GAS ORDER IZZY Final Result Performing Organization Address [facility] de Phone Number [facility] [address] [place] [address] * LIPASE (03/28/1999 20:20 EST) Lipase 67 0 - 210 U/L [facility] 03/28/1999 20:2 0 EST 03/28/1999 20:27 EST us Default Emergency MD CHEMISTRY & BLOOD GAS ORDER IZZY Final Result Performing Organization Address [facility] Co de Phone Number [facility] [address] [place] [address] * CREATININE (03/28/1999 20:20 EST) Creatinine 0.7 0.7 - 1.5 mg/dl [facility] 03/28/1999 20:2 0 EST 03/28/1999 20:27 EST us Default Emergency MD HISTORICAL LAB FOR SQ LOAD Final Result Performing Organization Address [facility] de Phone Number [facility] [address] [place] [address] * HEMAGRAM & DIFF (03/28/1999 20:20 EST) WBC 8.12 4.0 - 12.4 K/cmm [facility] RBC 4.50 3.86 - 5.04 M/cmm [facility] Hemoglobin 14.0 11.6 - 15.2 gm/dl [facility] HCT 41.0 34.9 - 44.4 % [facility] MCV 91 81 - 98 fl [facility] MCH 31.1 26.7 - 33.3 pg [facility] MCHC 34.1 32.1 - 35.9 gm/dl [facility] PLT 287 141 - 320 K/cmm [facility] RDW-CV 12.4 11.7 - 14.6 % [facility] % Neutrophils 51.6 45.5 - 79.7 % [facility] % Lymphocytes 36.3 15.0 - 46.8 % [facility] % Monocytes 7.3 1.8 - 12.0 % [facility] % Eosinophils 4.1 0.6 - 6.9 % [facility] % Basophils 0.7 0.2 - 1.4 % [facility] ABS Neutrophils 4.19 2.20 - 8.85 K/cmm [facility] ABS Lymphs 2.95 1.09 - 3.30 K/cmm [facility] ABS Monocytes 0.59 0.1 - 0.8 K/cmm [facility] ABS Eosinophils 0.33 0.03 - 0.61 K/cmm [facility] ABS Basophils 0.06 0.01 - 0.11 K/cmm [facility] Type of Diff: Automated [facility] 03/28/1999 20:2 0 EST 03/28/1999 20:27 EST us Default Emergency HISTORICAL LAB FOR SQ LOAD Final Result Performing Organization Address [facility] de Phone Number [facility] [address] [place] [address] * BUN (03/28/1999 20:20 EST) BUN 16 10 - 26 mg/dl [facility] 03/28/1999 20:2 0 EST 03/28/1999 20:27 EST us Default Emergency MD CHEMISTRY & BLOOD GAS ORDER IZZY Final Result Performing Organization Address [facility] de Phone Number [facility] [address] [place] [address] * AMYLASE (03/28/1999 20:20 EST) Amylase 46 30 - 110 U/L [facility] 03/28/1999 20:2 0 EST 03/28/1999 20:27 EST us Default Emergency CHEMISTRY & BLOOD GAS ORDER IZZY Final Result Performing Organization Address City/[facility] Co de Phone Number [facility] [address] [place] [address] documented in this encounter Visit Diagnoses Not on filedocumented in this encounter
--- OUTSIDE RECORDS SUMMARY | 2024-04-12 14:10 | XMS_ITS | Encounter Summary ---
Author Organization [facility] Address [address] [place] [address] Care Team Providers Care Wood Club Neck Whipper Name Role Phone Unavailable Primary Care Provider Unavailabl e Encounter Details Date Type Department Care Team (Late st Contact Info) Description 04/26/1999 12:55 EST Hospital Encounter [address] [id number] Eleuterio Lozoya MD [address] [facility], [address] [place] [address] Discharge Disposition: Auto Discharge Social History Tobacco Use Types Packs/Day [...] Priority Date/Time Associated Diagnosis Comments CYTOPATHOLOGY Routine 02/10/2009 0:00 EST documented in this encounter Results * CYTOPATHOLOGY (02/10/2009 0:00 EST) Pathology Report: CYTOPATHOLOGY REPORT ? Reports generated via electronic interface contain original data; ? however they are lacking the format of the original report. ? Caution should be taken when reading/interpreti ng unformatted reports. ? Name: ? VALLIERES, ERICK D ? Accession #: ? [id number] ? : ? 1950 (Age: 58) ??F ?Collect Date: ? 02/10/2009 ? Location: ? [facility] ? Receive Date: ? 02/14/2009 ? Provider: ? MALINDA E PRIMEAU MD ? Copy to: ? CYTOLOGIC DIAGNOSIS: ? Urine, voided, cytologic evaluation: ? - No malignant cells identified. ? Document reviewed and electronically signed by: ? Leda Ferris MD ? Report Date: ??02/14/2009 16:01 ? By the signature above, the attending physician certifies that he/she has ? personally conducted a gross and/or microscopic examination of the described ? specimens and rendered or confirmed the above diagnosis. ? Specimen Type: ? Urine, Voided ? Clinical History: ? Clinical diagnosis code: 599.72. ? Gross Description: ? One vial of Cytolyt was received and processed by selective cellular ? enhancement technique. ? End of Report ? [facility] 02/10/2009 02/14/2009 8:3 3 EST us Malinda Gabriel MD PATHOLOGY ORDERABLES Final R esult [facility] [address] [place] [address] documented in this encounter Visit Diagnoses Not on filedocumented in this encounter
--- OUTSIDE RECORDS SUMMARY | 2024-04-12 14:10 | XMS_ITS | Encounter Summary ---
Author Organization [facility] Address [address] [place] [address] Care Team Providers Care Transport Driver Name Role Phone Unavailable Primary Care Provider Unavailabl e Encounter Details Date Type Department Care Team (Late st Contact Info) Description 12/01/2007 Before PRISM Converted Visit (Maple) [facility] - Maple conversion [address] [place] [address] Elyssa Acosta MD [address] [place] [address] [address] [place], [place] [id number] Social History Tobacco Use Types Packs/Day Years [...] Priority Date/Time Associated Diagnosis Comments CYTOPATHOLOGY Routine 12/01/2007 0:00 EDT documented in this encounter Results * CYTOPATHOLOGY (12/01/2007 0:00 EDT) Pathology Report: CYTOPATHOLOGY REPORT ? Reports generated via electronic interface contain original data; ? however they are lacking the format of the original report. ? Caution should be taken when reading/interpreti ng unformatted reports. ? Name: ? ERICK STOKES ? Accession #: ? [id number] ? : ? 1950 (Age: 57) ??F ?Collect Date: ? 12/01/2007 ? Location: ? [facility] ? Receive Date: ? 12/02/2007 ? Provider: ? ELYSSA ACOSTA MD ? Copy to: ? Specimen Type: ? Urine, Voided ? Clinical History: ? Microscopic hematuria. ??Clinical diagnosis code: 599.7 ? Gross Description: ? 40cc' s of clear yellow fluid were received and processed by selective ? cellular enhancement technique. ? CYTOLOGIC DIAGNOSIS: ? Urine, voided, cytologic evaluation: ? 1. ?No malignant cells identified. ? 2. ? Numerous squamous cells, rare urothelial cells present. ? 3. ? Few red blood cells noted. ? Document reviewed and electronically signed by: ? Hugo Eastman [facility] ? Report Date: ??12/03/2007 13:03 ? By the signature above, the attending physician certifies that he/she has ? personally conducted a gross and/or microscopic examination of the described ? specimens and rendered or confirmed the above diagnosis. ? End of Report ? [facility] 12/01/2007 12/02/2007 7:5 6 EDT us Elyssa Acosta MD PATHOLOGY ORDERABLES Final Resul t Performing Organization Address City/State/[facility] Co de Phone Number [facility] [address] [place] [address] documented in this encounter Visit Diagnoses Not on filedocumented in this encounter
--- OUTSIDE RECORDS SUMMARY | 2024-04-12 14:10 | XMS_ITS | Encounter Summary ---
Author Organization [facility] Address [address] [place] [address] Care Team Providers Care Cook Fish And Chips Name Role Phone Patricio Gabriel MD Primary Care Provider Encounter Details Date Type Department Care Team (Late st Contact Info) Description 09/04/2020 Lab Requisition [facility] Pathology & Laboratory Medicine - [facility] [address] [place] [address] Dwayne Acosta MD [address] [place] [address] [address] [place], [place] [id number] Encounter for other general examination Social History Tobacco Use Types Packs/Day Years [...] Priority Date/Time Associated Diagnosis Comments SURGICAL PATHOLOGY Today 08/31/2020 16 :00 EDT documented in this encounter Results * SURGICAL PATHOLOGY (08/31/2020 16:00 EDT) Final Diagnosis A. SKIN OF BREAST, LEFT, EXCISION: - Seborrheic keratosis. - Seborrheic keratosis present at peripheral margin. 09/06/2020 10:44 [facility] Attestation By the signature below, the attending physician certifies that they have 1) personally conducted a gross and/or microscopic examination of the described specimen(s), and/or personally interpreted the results of laboratory testing of the described specimen(s), and 2) personally rendered or confirmed the above diagnosis. 09/06/2020 10:44 [facility] at 1044 Microscopic Description The stratum corneum is thickened by compact and basketweave orthokeratosis with formation of horn pseudocysts. The epidermis is acanthotic with formation of broad and anastomosing trabeculae. The trabeculae are composed of basaloid keratinocytes with round uniform nuclei. The keratinocytes have a variable amount of melanin pigment. 09/06/2020 10:44 [facility] Clinical History Nevus of L breast 09/06/2020 10:44 [facility] Gross Description A. Received in formalin labelled with proper patient identification (initials V, H) and L breast skin is an unoriented ellipse excision of pale dial wrinkled skin (2.0 x 0.9 cm and is excised to a depth of 0.1 cm). There is an off center dial-north to brown finely papillomatous papule (1.3 x 0.8 x 0.3 cm). The margins are inked blue. The specimen is serially sectioned and entirely submitted as two tips, reverse en face A1, and central sections in A2-A3. Zack Curry 09/05/2020 10:17 09/06/2020 10:44 [facility] Performing Lab [facility] 09/06/2020 10:44 [facility] Scanned Images 09/06/2020 10:44 [facility] Tissue TISSUE SPECIMEN FROM SKIN / Unknown 08/31/2020 16:00 EDT 09/04/2020 23:49 EDT us Dwayne Acosta MD PATHOLOGY ORDERABLES Final Resul t [facility] [address] [place] [address] documented in this encounter Visit Diagnoses Diagnosis Encounter for other general examination documented in this encounter Care Teams Cook Fish And Chips Relationship Specialty Start Date End Date Patricio Gabriel MD [address] [place] [address] PCP - General 02/01/09 documented as of this encounter
--- OUTSIDE RECORDS SUMMARY | 2024-04-12 14:10 | XMS_ITS | Encounter Summary ---
Author Organization [facility] Address [address] [place] [address] Care Team Providers Care Shaper Set Up Operator Name Role Phone Patricio Gabriel MD Primary Care Provider [phone] Encounter Details Date Type Department Care Team (Late st Contact Info) Description 06/03/2002 Results Only [facility] - Maple conversion [address] [place] [address] John Bird MD 29 [facility] [address] [place] [phone] Social History Tobacco Use Types Packs/Day [...] Priority Date/Time Associated Diagnosis Comments CYTOPATHOLOGY Routine 06/03/2002 0:00 EST documented in this encounter Results * CYTOPATHOLOGY (06/03/2002 0:00 EST) Pathology Report: CYTOPATHOLOGY REPORT Reports generated via electronic interface contain original data; however they are lacking the format of the original report. Caution should be taken when reading/interpreti ng unformatted reports. Name: ? ERICK STOKES ? Accession #: ? [id number] : ? 1950 (Age: 52) ??F ?Collect Date: ? 06/03/2002 Location: ? [facility] ? Receive Date: ? 06/07/2002 Provider: ?JOHN BIRD MD Copy to: ? Specimen/Source: ?ThinPrep Pap Test, Cervix/Endocervix Last Menstrual Period: ? Hormonal/Contracep tive Status: ? Premarin ? SPECIMEN ADEQUACY ? Satisfactory for Evaluation - transformation zone component present GENERAL CATEGORIZATION ? Negative for Intraepithelial Lesion or Malignancy ? Document reviewed and electronically signed by: ? GENESIS Gann(ASCP) ? Report Date: ??06/08/2002 10:36 End of Report [facility] 06/03/2002 06/07/2002 us John Bird MD PATHOLOGY ORDERABLES Final Resu lt [facility] [address] [place] [address] documented in this encounter Visit Diagnoses Not on filedocumented in this encounter Care Teams Shaper Set Up Operator Relationship Specialty Start Date End Date Patricio Gabriel MD [address] [place] [address] PCP - General 02/01/09 documented as of this encounter
--- OUTSIDE RECORDS SUMMARY | 2024-04-12 14:10 | XMS_ITS | Encounter Summary ---
Author Organization [facility] Address [address] [place] [address] Care Team Providers Care Moto Mix Operator Name Role Phone Patricio Gabriel MD Primary Care Provider [phone] Encounter Details Date Type Department Care Team (Late st Contact Info) Description 08/04/2006 Results Only [facility] - Maple conversion [address] [place] [address] Elyssa Acosta MD [address] [place] [address] DR [facility] [address] [place], [place] [id number] Social History Tobacco Use Types Packs/Day Years [...] Priority Date/Time Associated Diagnosis Comments CYTOPATHOLOGY Routine 08/04/2006 0:00 EDT documented in this encounter Results * CYTOPATHOLOGY (08/04/2006 0:00 EDT) Pathology Report: CYTOPATHOLOGY REPORT Reports generated via electronic interface contain original data; however they are lacking the format of the original report. Caution should be taken when reading/interpreti ng unformatted reports. Name: ? ERICK STOKES ? Accession #: ? [id number] : ? 1950 (Age: 56) ??F ?Collect Date: ? 08/04/2006 Location: ? [facility] ? Receive Date: ? 08/05/2006 Provider: ? ELYSSA ACOSTA MD Copy to: ? CYTOLOGIC DIAGNOSIS: ? Urine, not otherwise specified, cytologic evaluation: - No malignant cells identified. ?? - Acute and chronic inflammation. Document reviewed and electronically signed by: ? Leda Ferris MD Report Date: ??08/06/2006 10:53 By the signature above, the attending physician certifies that he/she has personally conducted a gross and/or microscopic examination of the described specimens and rendered or confirmed the above diagnosis. Specimen Type: ? Urine, NOS Clinical History: ? Microscopic hematuria ? Gross Description: ? 20cc' s of cloudy yellow fluid were received and processed by selective cellular enhancement technique. ? End of Report [facility] 08/04/2006 08/05/2006 7:4 8 EDT us Elyssa Acosta MD PATHOLOGY ORDERABLES Final Resul t [facility] [address] [place] [address] documented in this encounter Visit Diagnoses Not on filedocumented in this encounter Care Teams Moto Mix Operator Relationship Specialty Start Date End Date Patricio Gabriel MD [address] [place] [address] PCP - General 02/01/09 documented as of this encounter
--- OUTSIDE RECORDS SUMMARY | 2024-04-12 14:10 | XMS_ITS | Encounter Summary ---
Author Organization [facility] Address [address] [place] [address] Care Team Providers Care Customs Compliance Manager Name Role Phone Patricio Gabriel MD Primary Care Provider [phone] Encounter Details Date Type Department Care Team (Late st Contact Info) Description 01/19/2001 Results Only [facility] - Maple conversion [address] [place] [address] Comfort Bose, CHAU Social History Tobacco Use Types Packs/Day Years [...] Priority Date/Time Associated Diagnosis Comments CYTOPATHOLOGY Routine 01/19/2001 0:00 EDT documented in this encounter Results * CYTOPATHOLOGY (01/19/2001 0:00 EDT) Pathology Report: CYTOPATHOLOGY REPORT Reports generated via electronic interface contain original data; however they are lacking the format of the original report. Caution should be taken when reading/interpreti ng unformatted reports. Name: ? ERICK STOKES ? Accession #: ? [id number] : ? 1950 (Age: 50) ??F ?Collect Date: ? 01/19/2001 Location: ? [facility] ? Receive Date: ? 01/21/2001 Provider: ?COMFORT BOSE [address] TRAFFIC CONTROL TECHNICIAN Copy to: ? Specimen/Source: ?ThinPrep Pap Test, Cervix/Endocervix Last Menstrual Period: ? 10/29 Hormonal/Contracep tive Status: ? Hormone Replacement Therapy ? SPECIMEN ADEQUACY ? Satisfactory for evaluation. GENERAL CATEGORIZATION ? Within Normal Limits ? Document reviewed and electronically signed by: ? Alisha Ladd, SCT(ASCP) ? Report Date: ??01/23/2001 10:31 End of Report [facility] 01/19/2001 01/21/[address] TRAFFIC CONTROL TECHNICIAN PATHOLOGY ORDERABLES Final Re sult [facility] [address] [place] [address] documented in this encounter Visit Diagnoses Not on filedocumented in this encounter Care Teams Customs Compliance Manager Relationship Specialty Start Date End Date Patricio Gabriel MD [address] [place] [address] PCP - General 02/01/09 documented as of this encounter
--- OUTSIDE RECORDS SUMMARY | 2024-04-12 14:10 | XMS_ITS | Encounter Summary ---
Author Organization [facility] Address [address] [place] [address] Care Team Providers Care Malted Milk Masher Name Role Phone Patricio Gabriel MD Primary Care Provider [phone] Encounter Details Date Type Department Care Team (Late st Contact Info) Description 10/24/2021 Lab Requisition [facility] Pathology & Laboratory Medicine - [address] [address] Outr Resulting Lab, Provider Social History Tobacco [...] Procedure Name Priority Date/Time Associated Diagnosis Comments URINE MONOCLONAL PROTEIN STUDY (UPEP WITH IMMUNOTYPING) PERFORMABLE Today 10/23/2021 11:00 EDT PROTEIN, TOTAL, RANDOM, URINE Today 10/23/2021 11:00 EDT URINE MONOCLONAL PROTEIN STUDY (UPEP WITH IMMUNOTYPING) Routine 10/23/2021 11:00 EDT documented in this encounter Results * URINE MONOCLONAL PROTEIN STUDY (UPEP WITH IMMUNOTYPING) PERFORMABLE (10/23/2021 11:00 EDT) Albumin, Urine % 74.2 N/A % 10/26/19 15:05 [facility] Albumin, Urine mg/dL 62 mg/dL 10/25/2021 15:05 [facility] Globulins, Urine % 25.8 N/A % 10/25/2021 15:05 [facility] Globulins, Urine mg/dL 22 mg/dL 10/25/2021 15:05 [facility] UPEP Comment See Comment 10/25/2021 15:05 [facility] Comment:Electrophoresis scre ening performed; Immunotyping to follow. See scanned/supplementary report. Immunotyping, Urine Current Interpretatio n: Negative for free monoclonal light chains. Reviewed by: Aurelio Hirsch MD, PhD 10/25/2021 14:09. 10/25/2021 15:05 [facility] Total Protein, Urine 84 See Note mg/dL 10/25/2021 15:05 [facility] Comment: NOTE: Reference range has not been established for total protein concentration in random urine specimens. Urine URINE SPECIMEN COLLECTION, CLEAN CATCH / Unknown 10/23/2021 11:00 EDT 10/24/2021 17:03 EDT us Provider Outr Resulting Lab URINALYSIS ORDERABLE S Final Result Performing Organization Address [facility] Co de Phone Number [facility] [address] [place] [address] * PROTEIN, TOTAL, RANDOM, URINE (10/23/2021 11:00 EDT) Urine URINE SPECIMEN COLLECTION, CLEAN CATCH / Unknown 10/23/2021 11:00 EDT 10/24/2021 17:03 EDT us Provider Outr Resulting Lab URINALYSIS ORDERABLE S Final Result Performing Organization Address [facility]/ZIP Co de Phone Number [facility] [address] [place] [address] documented in this encounter Visit Diagnoses Not on filedocumented in this encounter Care Teams Malted Milk Masher Relationship Specialty Start Date End Date Patricio Gabriel MD [address] [place] [address] PCP - General 02/01/09 documented as of this encounter
--- OUTSIDE RECORDS SUMMARY | 2024-04-12 14:10 | XMS_ITS | Encounter Summary ---
Author Organization [facility] Address [address] [place] [address] Care Team Providers Care Wire Drawer Name Role Phone Unavailable Primary Care Provider Unavailabl e Encounter Details Date Type Department Care Team (Late st Contact Info) Description 04/06/1999 9:04 EST Hospital Encounter [facility] - Maple conversion [address] [place] [address] Eleuterio Lozoya MD [address] [facility], [facility] [address] [place] [address] Social History Tobacco Use Types Packs/Day Years [...] Procedure Name Priority Date/Time Associated Diagnosis Comments COMPLETE BLOOD COUNT Routine 04/06/1999 9:14 EST BILIRUBIN DIRECT/INDIRECT Routine 04/06/1999 9:14 EST ALT Routine 04/06/1999 9:14 EST LIPASE Routine 04/06/1999 9:14 EST AMYLASE Routine 04/06/1999 9:14 EST COMPREHENSIVE METABOLIC PANEL (CMP) Routine 04/06/1999 9:14 EST documented in this encounter Results * LIPASE (04/06/1999 9:14 EST) Lipase 142 0 - 210 U/L [facility] 04/06/1999 9:14 EST 04/06/1999 9:15 EST Eleuterio Lozoya MD CHEMISTRY & BLOOD GAS ORDER IZZY Final Result Performing Organization Address [facility] Co de Phone Number [facility] [address] [place] [address] * DIRECT BILIRUBIN (04/06/1999 9:14 EST) Pathologist [facility] Conjugated Bilirubin 0.0 0.0 - 0.3 mg/dl [facility] Unconjugated Bilirubin 0.4 0.1 - 1.1 mg/dl [facility] 04/06/1999 9:14 EST 04/06/1999 9:15 EST Eleuterio Lozoya MD CHEMISTRY & BLOOD GAS ORDER IZZY Final Result Performing Organization Address [facility] Co de Phone Number [facility] [address] [place] [address] * (ABNORMAL) COMPREHENSIVE METABOLIC PANEL (04/06/1999 9:14 EST) Potassium 4.0 3.5 - 5.0 mEq/L [facility] Sodium 141 136 - 145 mEq/L [facility] Chloride 103 96 - 110 mEq/L [facility] CO2 32(H) 24 - 30 mEq/L [facility] Total Alkaline Phosphatase 78 38 - 126 U/L [facility] Bilirubin, Total 0.7 0.2 - 1.3 mg/dl [facility] AST 40 8 - 50 U/L [facility] Albumin 3.8 3.0 - 5.5 g/dl [facility] Total Protein 6.9 6.0 - 8.5 g/dl [facility] Creatinine 0.8 0.7 - 1.5 mg/dl [facility] BUN 16 10 - 26 mg/dl [facility] Calcium 9.9 8.5 - 10.5 mg/dl [facility] Calculated Calcium 10.5 8.5 - 10.5 mg/dl [facility] Glucose, Serum 88 70 - 110 mg/dl [facility] Albumin/Globulin Ratio 1.2 [facility] 04/06/1999 9:14 EST 04/06/1999 9:15 EST Eleuterio Lozoya MD CHEMISTRY & BLOOD GAS ORDER IZZY Final Result Performing Organization Address [facility] de Phone Number [facility] [address] [place] [address] * HEMAGRAM (04/06/1999 9:14 EST) WBC 9.32 4.0 - 12.4 K/cmm [facility] RBC 4.23 3.86 - 5.04 M/cmm [facility] Hemoglobin 13.3 11.6 - 15.2 gm/dl [facility] HCT 38.8 34.9 - 44.4 % [facility] MCV 92 81 - 98 fl [facility] MCH 31.4 26.7 - 33.3 pg [facility] MCHC 34.3 32.1 - 35.9 gm/dl [facility] PLT 273 141 - 320 K/cmm [facility] RDW-CV 12.4 11.7 - 14.6 % [facility] 04/06/1999 9:14 EST 04/06/1999 9:15 EST Eleuterio Lozoya MD HEMATOLOGY & PF4 ORDERABLES Final Result Performing Organization Address [facility] de Phone Number [facility] [address] [place] [address] * AMYLASE (04/06/1999 9:14 EST) Amylase 60 30 - 110 U/L [facility] 04/06/1999 9:14 EST 04/06/1999 9:15 EST us Eleuterio Lozoya MD CHEMISTRY & BLOOD GAS ORDER IZZY Final Result Performing Organization Address [facility] Co de Phone Number [facility] [address] [place] [address] * ALT (04/06/1999 9:14 EST) ALT 44 15 - 75 U/L [facility] 04/06/1999 9:14 EST 04/06/1999 9:15 EST us Eleuterio Lozoya MD CHEMISTRY & BLOOD GAS ORDER IZZY Final Result Performing Organization Address [facility] Co de Phone Number [facility] [address] [place] [address] documented in this encounter Visit Diagnoses Not on filedocumented in this encounter
--- OUTSIDE RECORDS SUMMARY | 2024-04-12 14:10 | XMS_ITS | Encounter Summary ---
Author Organization [facility] Address [address] [place] [address] Care Team Providers Care Tamping Machine Operator Road Forms Name Role Phone Patricio Gabriel MD Primary Care Provider [phone] Encounter Details Date Type Department Care Team (Late st Contact Info) Description 01/07/2018 Results Only [facility] [phone] Lizz Puri MD [facility] [place] [address] Social History Tobacco Use Types Packs/Day Years [...] Priority Date/Time Associated Diagnosis Comments SURGICAL PATHOLOGY Routine 01/07/2018 9:03 EDT documented in this encounter Results * SURGICAL PATHOLOGY (01/07/2018 9:03 EDT) Pathology Report: SURGICAL PATHOLOGY REPORT Reports generated via electronic interface contain original data; however they are lacking the format of the original report. Caution should be taken when reading/interpreting unformatted reports. Name: ? ERICK STOKES ? Accession #: ? [id number] ? : ? 1950 (Age: 67) ??F ? Collect Date: ? 01/07/2018 ? Location: ? [facility] ? Receive Date: ? 01/07/2018 ? Provider: LIZZ PURI MD Copy to: ? 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 Comment: Sections show mature adipose tissue with bands of ropey collagen and scattered mast cells. Scattered edema/myxomatous stroma are present. ??Rare enlarged cells are noted, but significant cytologic atypia is absent. Per report from an MRI study, the patient is noted to have a prepatellar soft tissue mass having the appearance of fat with some edema. 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 Tile And Mottle Supervisor slides of this case were reviewed at the intradepartmental consultation conference. Immunoperoxidase stains were performed on this case to further characterize the lesion. ANTIBODY(CLONE)(BLOC K):RESULT CD34 (QBEnd/10, Leica) (2): Positive MDM2 (IF2, Calbiochem) (2): Negative CDK4 (DCS-31, Invitrogen) (2): Negative NOTE: ??One or more of the reagents used in immunoperoxidase testing in this case may not have been cleared or approved by the U.S. Food and Drug Administration (FDA). ??The FDA has determined that such clearance or approval is not necessary. ??These tests are used for clinical purposes. ??They should not be regarded as investigational or for research. ??These reagents' performance characteristics have been determined by [facility] and/or by the referring laboratory. ??The positive and negative controls worked appropriately. If immunoperoxidase staining has been performed on alcohol fixed cytology specimens, which has not been fully validated, the assays should be interpreted with caution and correlated with clinical data. ??This laboratory is certified under the Clinical Laboratory Improvement Amendments of 1988 (CLIA-88) as qualified to perform high complexity clinical laboratory testing. Dr. Frederick Vargas 01/12/2018 1:00 PM Document reviewed and electronically signed by: FREDERICK VARGAS MD Report ??Date: 01/12/2018 13:02 By the signature above, the attending physician certifies that he/she has personally conducted a gross and/or microscopic examination of the described specimens and rendered or confirmed the above diagnosis. Specimen(s) Received: Anterior right knee specimen Clinical History: Mass right anterior knee, rapid growth over last month Gross Description: ? Received in formalin labelled with proper patient identification (initials V, H) and anterior right knee specimen is an ovoid portion of yellow lobulated adipose tissue (3.6 x 2.8 x 1.3 cm) with an overlying membranous layer of tissue at one aspect. The cut surfaces are pale yellow and homogenous. Tile And Mottle Supervisor sections are submitted in 1 and 2. RENAE Cline (ASCP) 01/08/2018 9:52 AM End of Report [facility] 01/07/2018 9:03 EDT 01/07/2018 9:03 EDT us Lizz Puri MD PATHOLOGY ORDERABLES Final Resul t [facility] [address] [place] [address] documented in this encounter Visit Diagnoses Not on filedocumented in this encounter Care Teams Tamping Machine Operator Road Forms Relationship Specialty Start Date End Date Patricio Gabriel MD [address] [place] [address] PCP - General 02/01/09 documented as of this encounter
--- OUTSIDE RECORDS SUMMARY | 2024-04-12 14:10 | XMS_ITS | Encounter Summary ---
Author Organization [facility] Address [address] [place] [address] Care Team Providers Care Receiving Barn Custodian Name Role Phone Patricio Gabriel MD Primary Care Provider Encounter Details Date Type Department Care Team (Late st Contact Info) Description 05/15/2001 Results Only [facility] - Maple conversion [address] [place] [address] Fausto Everett, [place], [place] [address] Social History Tobacco Use Types Packs/Day Years [...] Date/Time Associated Diagnosis Comments SURGICAL PATHOLOGY Routine 05/15/2001 0:00 EST documented in this encounter Results * SURGICAL PATHOLOGY (05/15/2001 0:00 EST) Pathology Report: SURGICAL PATHOLOGY REPORT Reports generated via electronic interface contain original data; however they are lacking the format of the original report. Caution should be taken when reading/interpreti ng unformatted reports. Name: ? ERICK STOKES ? Accession #: ? [id number] ? : ? 1950 (Age: 51) ??F ? Collect Date: ? 05/15/2001 ? Location: ? [facility] ? Receive Date: ? 05/15/2001 ? Provider: Fausto EVERETT DDS Copy to: MALLORIE GOETZ MD ? [...] or confirmed the above diagnosis. Specimen(s) Received: ? 7 mm pedunculated pink non-indurated, soft tissue lesion Clinical History: ? L buccal mucosal lesion x 1-several yrs, bites easily, clinical dx irritation fibroma Gross Description: ? Received in formalin labelled [place] is an ovoid excision of mucosal tissue that measures 1.1 x 0.6 cm and is excised to a depth of 0.5 cm. ??The mucosal surface is smooth, pink-dial, and consists of a nodule that is raised 0.6 cm above the mucosal resection margin. ??The specimen is longitudinally trisected and is entirely submitted in one cassette. ??(Viridiana Black)/[facility] End of Report [facility] 05/15/2001 05/15/2001 8:5 9 EST Fausto Everett DDS PATHOLOGY ORDERABLES Kaley granados Result [facility] [address] [place] [address] documented in this encounter Visit Diagnoses Not on filedocumented in this encounter Care Teams Receiving Barn Custodian Relationship Specialty Start Date End Date Patricio Gabriel MD [address] [place] [address] PCP - General 02/01/09 documented as of this encounter
--- OUTSIDE RECORDS SUMMARY | 2024-04-12 14:10 | XMS_ITS | Encounter Summary ---
Author Organization [facility] Address [address] [place] [address] Care Team Providers Care Aquatic Scientist Name Role Phone Patricio Gabriel MD Primary Care Provider [phone] Encounter Details Date Type Department Care Team (Late st Contact Info) Description 07/31/2006 Results Only [facility] - Maple conversion [address] [place] [address] Elyssa Acosta MD [address] [place] [address] [facility] [address] [place], [place] [id number] Social History Tobacco Use Types Packs/Day Years [...] Procedure Name Priority Date/Time Associated Diagnosis Comments HPV DETECTION, HIGH RISK TYPES Routine 07/31/2006 22:51 EDT CYTOPATHOLOGY Routine 07/31/2006 0:00 EDT documented in this encounter Results * HUMAN PAPILLOMA VIRUS DNA TEST (07/31/2006 22:51 EDT) Specimen Description Cervix, ThinPrep vial [facility] Result Negative for HPV types 16, 18, 31, 33, 35, 39, 45, 51, 52, 56, 58, 59, and 68. [facility] Report Status Final [id number] [facility] 07/31/2006 22:5 1 EDT 08/05/2006 22:51 EDT Elyssa Acosta MD MICROBIOLOGY - GENERAL ORDERABLE S Final Result [facility] [address] [place] [address] * CYTOPATHOLOGY (07/31/2006 0:00 EDT) Pathology Report: CYTOPATHOLOGY REPORT Reports generated via electronic interface contain original data; however they are lacking the format of the original report. Caution should be taken when reading/interpreti ng unformatted reports. Name: ? ERICK STOKES ? Accession #: ? [id number] : ? 1950 (Age: 56) ??F ?Collect Date: ? 07/31/2006 Location: ? [facility] ? Receive Date: ? 08/01/2006 Provider: ?ELYSSA ACOSTA MD Copy to: ? Specimen/Source: ?ThinPrep Pap Test, Vagina, processed on [employer] ThinPrep Imaging System, with manual evaluation Last Menstrual Period: ? Age 45 Treatment History: ? Hysterectomy: Vag 11/03 Other: ? Additional clinical information: Previous paps WNL HPVDX - HPV testing requested regardless of diagnosis on current ThinPrep Pap test. ? SPECIMEN ADEQUACY ? Satisfactory for Evaluation - assessment of transformation zone component not applicable ( e.g. atrophy, vaginal sample, hysterectomy) GENERAL CATEGORIZATION ? Negative for Intraepithelial Lesion or Malignancy ? Document reviewed and electronically signed by: ? GENESIS Steen(ASCP) ? Report Date: ??08/05/2006 10:18 End of Report [facility] 07/31/2006 08/01/2006 us Elyssa Acosta MD PATHOLOGY ORDERABLES Final Resul t [facility] [address] [place] [address] documented in this encounter Visit Diagnoses Not on filedocumented in this encounter Care Teams Aquatic Scientist Relationship Specialty Start Date End Date Patricio Gabriel MD [address] [place] [address] PCP - General 02/01/09 documented as of this encounter
--- OUTSIDE RECORDS SUMMARY | 2024-04-12 14:10 | XMS_ITS | Encounter Summary ---
Author Organization [facility] [place] Address [address] [place] [address] Care Team Providers Care Warehouse Distribution Associate Name Role Phone Patricio Gabriel MD Primary Care Provider Encounter Details Date Type Department Care Team (Late st Contact Info) Description 06/06/2005 Results Only [facility] [address] [place] [address] Elyssa Acosta MD [address] [place] [address] [address] [facility] [address] [place], [place] [id number] Social History Tobacco Use Types Packs/Day Years [...] Priority Date/Time Associated Diagnosis Comments CYTOPATHOLOGY Routine 06/06/2005 0:00 EST documented in this encounter Results * CYTOPATHOLOGY (06/06/2005 0:00 EST) Pathology Report: CYTOPATHOLOGY REPORT Reports generated via electronic interface contain original data; however they are lacking the format of the original report. Caution should be taken when reading/interpreti ng unformatted reports. Name: ? ERICK STOKES ? Accession #: ? [id number] : ? 1950 (Age: 55) ??F ?Collect Date: ? 06/06/2005 Location: ? [facility] ? Receive Date: ? 06/10/2005 Provider: ?ELYSSA ACOSTA MD Copy to: ? Specimen/Source: ?ThinPrep Pap Test, Cervix/Endocervix, processed on [employer] ThinPrep Imaging System, with manual evaluation Last Menstrual Period: ? Age 45 Hormonal/Contracep tive Status: ? Yes Other: ? HPVA - HPV testing requested if ASC-US on the current ThinPrep Pap test. ? SPECIMEN ADEQUACY ? Satisfactory for Evaluation - transformation zone component present GENERAL CATEGORIZATION ? Negative for Intraepithelial Lesion or Malignancy INTERPRETATION ? Fungal organisms present morphologically consistent with Christi species. ? Document reviewed and electronically signed by: ? GENESIS Davis(ASCP) ? Report Date: ??06/12/2005 10:22 End of Report [facility] 06/06/2005 06/10/2005 us Elyssa Acosta MD PATHOLOGY ORDERABLES Final Resul t [facility] [address] [place] [address] documented in this encounter Visit Diagnoses Not on filedocumented in this encounter Care Teams Warehouse Distribution Associate Relationship Specialty Start Date End Date Patricio Gabriel MD [address] [place] [address] PCP - General 02/01/09 documented as of this encounter
--- OUTSIDE RECORDS SUMMARY | 2024-04-12 14:10 | XMS_ITS | Encounter Summary ---
Author Organization [facility] Address [address] [place] [address] Care Team Providers Care Press Maintainer Name Role Phone Patricio Gabriel MD Primary Care Provider Encounter Details Date Type Department Care Team (Latest Contact Info) Description 01/07/2018 10:47 EDT - 01/07/2018 23:59 EDT Hospital Encounter [address] [address] Unknown, Provider, MD Discharge Disposition: Home or Self Care Social History Tobacco Use Types Packs/Day Years Used Date Smoking Tobacco: Never Assessed Comments Unknown Sex and Gender Information Value Date Recorded Sex Assigned at Not on file Legal Sex Female 18:03 EST Gender Identity Not on file Sexual Orientation Not on file documented as of this encounter Discharge Disposition Disposition Code Departure Means Destination Home or Self Fpc documented in this encounter Plan of Treatment Not on file documented as of this encounter Visit Diagnoses Not on filedocumented in this encounter Care Teams Press Maintainer Relationship Specialty Start Date End Date Patricio Gabriel MD [address] [place], [place] [id number] PCP - General 02/01/09 documented as of this encounter
[2024-04-12 19:46] LABS: ALT 21 U/L (14-59); Anion Gap 9.6 mmol/L (3-11); BUN 23 mg/dL (7-18); CO2 27.4 mmol/L (21.0-32.0); CREATININE 1.1 mg/dL (0.55-1.02); Calcium 9.4 mg/dL (8.5-10.1); Calculated LDL 66 mg/dL (<100); Chloride 103 mmol/L (98-107); Cholesterol 171 mg/dL (<200); Estimated GFR 52.73 (mL/min/1.73m2); Glucose 163 mg/dL (74-106); HDL Cholesterol 63 mg/dL (40-60); Potassium 4.3 mmol/L (3.5-5.1); Sodium 140 mmol/L (136-145); Triglyceride 213 mg/dL (<150)
[2024-04-12 19:57] LABS: Creatine Kinase 69 U/L (26-192)
== END 2024-04-12 14:00 | disposition home or self-care (01) ==
LOC: NCHCN 13:59
PROVIDERS: PCP Internal Medicine; Visit Provider Internal Medicine
DX: I10 Essential (primary) hypertension (principal)
CPT/HCPCS: 80048; 80061; 82550; 84460

== ENCOUNTER 2024-07-15 14:12 | Outpatient (REF) | payer MEDICARE, SELFPAY ==
[2024-07-15 20:43] LABS: COMMENT (LAB VIEW ONLY) 24.64 mg/dL
[2024-07-15 21:06] LABS: Microalb ug/mg Crea 556.8 ug/mg Cr
== END 2024-07-15 14:13 | disposition home or self-care (01) ==
LOC: NCHCN 14:12
PROVIDERS: PCP Internal Medicine; Visit Provider Internal Medicine
DX: E11.9 Type 2 diabetes mellitus without complications (principal)
CPT/HCPCS: 82043; 82570

== ENCOUNTER 2025-03-29 10:24 | Outpatient (REF) | payer MEDICARE, SELFPAY ==
[2025-03-29 19:35] LABS: TSH (W/Ref FT4) 1.42 uIU/mL (0.55-4.78)
== END 2025-03-29 10:25 | disposition home or self-care (01) ==
LOC: NCHCN 10:24
PROVIDERS: PCP Internal Medicine; Visit Provider Nurse Practitioner
DX: R00.2 Palpitations (principal)
CPT/HCPCS: 84443